=== PATIENT | female | born 1950 | race Caucasian/White ===

== ENCOUNTER 2016-07-16 16:55 | Outpatient (RCR) | payer MEDICARE, OTHER ==
--- NOTE | 2016-07-15 09:21 | Diagnostic Imaging Report ---
INDICATION: Nephrolithiasis. EXAMINATION: KUB at 11:07 AM. FINDINGS: The bowel gas pattern is normal. There is one small linear calcification projecting over the left kidney that could be a renal calculus versus fecal material in the colon. IMPRESSION: Small calcifications are seen in the left kidney that could be calculi versus fecal material. Dictated by: Dictated on workstation # [id number]
[~2016-07-16 16:55] MED LIST: ALPR0.2550 PO; AMLO10TA4 PO; AMLO5TAB2 PO; ASCO500C14 PO; ASP81TEC PO; ATR20T PO; BISO10TA8 PO; BISO1TAB PO; BISO1TAB39 PO; BISO1TAB4; CALC-758 PO; CALC-80 PO; CETI-9 PO; CHOL100011 PO; CHOL50003 PO; CPR500T PO; DOXY100C2; EST.625T; ESTROPIPATE; EZET1TAB43; FAMO20TA5; FEVERFEW PO; FLUO20CA42 PO; FLX20C; GABA-486 PO; GABA-488 PO; GLUC-113 PO; HCT25T PO; HYOS0.1217 PO; KCL10CCR PO; LEVO125T6 PO; LEVOTHYROXINE; MDR10T; MULT-608 PO; NAPR-689 PO; NAPR1TAB21 PO; NAPR250T34; NF-ESOM40C; NF-TRA/ACE PO; OMEG1CAP51 PO; ONDAN4ODT PO; PHEN200T27 PO; PNT40TEC PO; PROMETRIUM; PROP1TAB77; SENN-75 PO; SERT50TA PO; SMV20T; SUCR1TAB PO; TRAM-368 PO; TRIA1CAP4 PO; TRIAMTERENE; VITA1CAP21 PO; VITA1CAP59 PO; VITAMIN B 6 PO; VNL75T; VYTORIN
[2016-07-21 20:40] LABS: STONE RISK AMMONIUM 39 mEq/24hr (14-62); STONE RISK BRUSHITE 1.85 (< 2.00); STONE RISK CA OXALATE 1.52 (< 2.00); STONE RISK CALCIUM 231 mg/day (< 250); STONE RISK CITRATE 120 mg/day (> 320); STONE RISK CREATININE 1246 mg/day (600-1800); STONE RISK MAGNESIUM 79 mg/day (> 60); STONE RISK OXALATE 24 mg/day (< 45); STONE RISK PATIENT CONDITION Hypocitraturia; STONE RISK PH 6.2 (5.5-7.0); STONE RISK PHOSPHOROUS 740 mg/day (< 1100); STONE RISK POTASSIUM 39 mEq/24hr (19-135); STONE RISK SODIUM 119 mEq/24hr (< 200); STONE RISK SODIUM URATES 1.38 (< 2.00); STONE RISK STRUVITE 0.74 (< 75.00); STONE RISK SULFITE 9 mmol/day (< 30); STONE RISK TOTAL VOLUME 2.08 L/day (> 2.00); STONE RISK URIC ACID 630 mg/day (< 700); STONE RISK URIC ACID SAT 0.87 (< 2.00)
[2016-07-22 07:39] LABS: STONE RISK SUSPECTED PROBLEM SEE FOOTNOTE
== END 2016-10-13 | disposition home or self-care (01) ==
LOC: RAD 16:55
PROVIDERS: ATTEND Urology
DX: N20.0 Calculus of kidney (principal)
CPT/HCPCS: 36415; 74000; 82140; 82340; 82507; 82570; 83735; 83945; 83986; 84105; 84133; 84300; 84392; 84560

== ENCOUNTER → 2017-02-23 | Outpatient (CLI) | payer MEDICARE, OTHER ==
--- NOTE | 2017-02-23 20:29 | Diagnostic Imaging Report ---
INDICATION: Wrist pain post fall several days earlier. TECHNIQUE: Three views of the right wrist CORRELATION STUDY: None FINDINGS: Alignment appearing to be anatomic. No acute fracture. Multifocal degenerative changes are present with mild joint space narrowing and reactive sclerosis and osteophyte formation. It is most noticeable at the first carpal metacarpal articulation. Mild soft tissue swelling is suggested. IMPRESSION: 1. Negative for acute bony abnormality about the right wrist with multifocal degenerative changes present. Mild soft tissue edema. If symptoms persist, short-term followup CT imaging would be recommended. Dictated by: Dictated on workstation # [id number]
== END ==
LOC: RAD 11:34
PROVIDERS: ATTEND Nurse Practitioner Family
DX: M19.031 Primary osteoarthritis, right wrist (principal)
CPT/HCPCS: 73110

== ENCOUNTER → 2017-03-03 | Outpatient (CLI) | payer MEDICARE, OTHER ==
--- NOTE | 2017-03-03 11:13 | Diagnostic Imaging Report ---
INDICATION: Fall. Hip pain. COMPARISON: None. FINDINGS: Two radiographic views of the right hip were obtained. There is no radiographic evidence of acute fracture or dislocation. Femoral acetabular joint space appears intact. There are mild degenerative changes of the right hip. Note is also made of calcified arteriosclerosis. Metallic opacity is seen projecting over the sacrum and is of indeterminate etiology. Soft tissue structures are otherwise unremarkable. IMPRESSION: 1. No radiographic evidence of acute fracture or dislocation of the right hip. 2. Mild degenerative changes of the right hip. 3. Metallic opacity projecting over the sacrum. This could be something external to the patient, although enteric or colonic foreign body is not excluded. Dictated by: Dictated on workstation # [id number]
== END ==
LOC: RAD 10:50
PROVIDERS: ATTEND Nurse Practitioner Family
DX: M25.551 Pain in right hip (principal)
CPT/HCPCS: 73502

== ENCOUNTER → 2017-05-25 | Outpatient (CLI) | payer MEDICARE, OTHER ==
--- NOTE | 2017-05-27 09:51 | Diagnostic Imaging Report ---
EXAMINATION: Bilateral screening mammogram 2D views with tomosynthesis. The current study was also evaluated with a Computer Aided Detection (CAD) system. INDICATION: Screening. PERSONAL HISTORY: No current complaints stated on the questionnaire. COMPARISON: 04/09/2016. FINDINGS: The breasts are composed of heterogeneously dense parenchyma which may decrease mammographic sensitivity. Benign-appearing calcifications are seen. There is a biopsy clip in the upper outer aspect of the right breast. Allowing for technique and positional differences, no suspicious change is seen. IMPRESSION: No significant change. ACR BI-RADS Category 2: Benign findings. Result letter will be mailed to the patient. Note: At least 10% of breast cancer is not imaged by mammography. Dictated by: Dictated on workstation # [id number]
== END ==
LOC: RAD 15:05
PROVIDERS: ATTEND Family Medicine
DX: Z12.31 Encounter for screening mammogram for malignant neoplasm of breast (principal)

== ENCOUNTER 2017-06-14 11:31 | Inpatient (IN) | payer MEDICARE, OTHER ==
[~2017-06-14] VITALS: Ht 172.7 cm; Wt 87.5 kg
--- OUTSIDE RECORDS SUMMARY | 2017-06-14 14:09 | XMS REPORT | Continuity of Care Document ---
Author Author [facility] Organization [facility] Address Unknown Phone Unavailable Allergies Active Description Code Type Severity Reaction Onset Reported/Identified Relationship to Patient Clinical Status Yes Sulfa (Sulfonamide Antibiotics) [id number] Drug Allergy Unknown N/A 2006 Medications There is no data. Problems Date Dx Coded Attending Type Code Diagnosis Diagnosed By 10/26/2009 Ot 244.9 10/26/2009 Ot 300.00 10/26/2009 Ot 401.9 10/26/2009 Ot 780.4 10/26/2009 Ot 786.09 10/26/2009 Ot 786.50 10/26/2009 Ot 794.30 10/26/2009 Ot V07.4 10/26/2009 Ot V17.49 10/26/2009 Ot V45.77 10/26/2009 Ot V58.66 10/26/2009 Ot V58.69 11/18/2010 Ot 244.9 HYPOTHYROIDISM NOS 11/18/2010 Ot 300.4 DYSTHYMIC DISORDER 11/18/2010 Ot 401.9 HYPERTENSION NOS 11/18/2010 Ot 530.81 ESOPHAGEAL REFLUX 11/18/2010 Ot 592.1 CALCULUS OF URETER 11/18/2010 Ot V58.69 OTH MED,LT, CURRENT USE 02/23/2011 Ot 592.1 CALCULUS OF URETER 07/09/2011 Ot 327.23 OBSTRUCTIVE SLEEP APNEA (ADULT) (PEDIATR 07/15/2012 Ot 592.9 URINARY CALCULUS NOS 01/07/2013 MAXIMILIANO CASAS MD Ot 530.11 REFLUX ESOPHAGITIS 01/07/2013 MAXIMILIANO CASAS MD Ot 535.40 OTH SPECIFIED GASTRITIS,W/O MENTION OF H 01/07/2013 MAXIMILIANO CASAS MD Ot 553.3 DIAPHRAGMATIC HERNIA 07/28/2013 STEPHANIA DAIGLE, JANINE Nascimento Ot 592.9 URINARY CALCULUS NOS 10/07/2013 TAVARES SCOTT MD Ot 722.52 LUMB/LUMBOSAC DISC DEGEN 02/17/2014 TAVARES SCOTT MD Ot 721.3 LUMBOSACRAL SPONDYLOSIS 02/17/2014 TAVARES SCOTT MD Ot 722.52 LUMB/LUMBOSAC DISC DEGEN 02/17/2014 TAVARES SCOTT MD Ot V58.69 OTH MED,LT,CURRENT USE 03/24/2014 MAXIMILIANO CASAS MD Ot 455.0 INT HEMORRHOID W/O COMPL 03/24/2014 MAXIMILIANO CASAS MD Ot 455.3 EXT HEMORRHOID W/O COMPL 03/24/2014 MAXIMILIANO CASAS MD Ot V12.72 PERSONAL HISTORY OF COLONIC POLYPS 03/24/2014 MAXIMILIANO CASAS MD Ot V76.51 SCREEN MAL NEOP-COLON 07/07/2014 Ot 780.60 07/07/2014 Ot 787.02 07/07/2014 Ot 786.50 07/07/2014 Ot 397.0 07/07/2014 Ot 401.9 07/07/2014 Ot 424.0 07/07/2014 Ot 780.4 07/07/2014 Ot 786.05 07/07/2014 Ot 786.50 07/07/2014 Ot 794.30 07/07/2014 Ot 786.50 07/07/2014 Ot 786.50 07/07/2014 Ot 796.4 07/07/2014 Ot V81.5 07/07/2014 Ot 793.81 07/07/2014 Ot 244.9 07/07/2014 Ot 401.9 07/07/2014 Ot 610.0 07/07/2014 Ot 610.1 07/07/2014 Ot 610.4 07/07/2014 Ot 793.81 07/07/2014 Ot V58.69 07/07/2014 Ot 793.81 07/07/2014 Ot 592.1 07/07/2014 Ot 553.3 07/07/2014 Ot 571.8 07/07/2014 Ot 789.04 07/07/2014 Ot 473.9 07/07/2014 Ot 786.09 07/07/2014 Ot 786.50 07/07/2014 Ot 786.09 07/07/2014 Ot 786.50 07/07/2014 Ot V76.12 07/07/2014 Ot 592.9 07/07/2014 Ot 721.3 07/07/2014 Ot 782.0 07/07/2014 Ot 959.9 07/07/2014 Ot E000.8 07/07/2014 Ot E849.0 07/07/2014 Ot E888.9 07/07/2014 FLORIAN DAIGLE, HARPER Watson Ot 401.9 07/07/2014 FLORIAN DAIGLE, HARPER Watson Ot 786.09 07/07/2014 YESSENIA DAIGLE, MAXIMILIANO Ot V72.84 07/07/2014 Ot 592.9 07/07/2014 LESLIE DO, ROXANNE F Ot 719.46 07/07/2014 LESLIE DO, ROXANNE F Ot 721.90 07/07/2014 LESLIE DO, ROXANNE F Ot 722.10 07/07/2014 LESLIE DO, ROXANNE F Ot 724.8 07/07/2014 LELSIE DO, ROXANNE F Ot V15.88 07/07/2014 FLORIAN DAIGLE, HARPER Watson Ot 272.4 07/07/2014 FLORIAN DAIGLE, HARPER Watson Ot 300.00 07/07/2014 FLORIAN DAIGLE, HARPER Watson Ot 397.0 07/07/2014 FLORIAN DAIGLE, HARPER Watson Ot 401.9 07/07/2014 FLORIAN DAIGLE, HARPER Watson Ot 424.0 07/07/2014 FLORIAN DAIGLE, HARPER Watson Ot 786.50 07/07/2014 FLORIAN DAIGLE, HARPER Watson Ot 272.4 07/07/2014 FLORIAN DAIGLE, HARPER Watson Ot 401.9 07/07/2014 HARPER DU MD Ot 786.50 07/07/2014 YESSENIA DAIGLE, MAXIMILIANO Ot V72.84 07/07/2014 FEDERICO NAIR MD Ot V76.12 07/11/2014 JANINE CAT MD Ot 592.9 07/21/2014 JANINE CAT MD Ot 592.9 07/27/2014 Ot 780.60 07/27/2014 Ot 787.02 07/27/2014 Ot 786.50 07/27/2014 Ot 397.0 07/27/2014 Ot 401.9 07/27/2014 Ot 424.0 07/27/2014 Ot 780.4 07/27/2014 Ot 786.05 07/27/2014 Ot 786.50 07/27/2014 Ot 794.30 07/27/2014 Ot 786.50 07/27/2014 Ot 786.50 07/27/2014 Ot 796.4 07/27/2014 Ot V81.5 07/27/2014 Ot 793.81 07/27/2014 Ot 244.9 07/27/2014 Ot 401.9 07/27/2014 Ot 610.0 07/27/2014 Ot 610.1 07/27/2014 Ot 610.4 07/27/2014 Ot 793.81 07/27/2014 Ot V58.69 07/27/2014 Ot 793.81 07/27/2014 Ot 592.1 07/27/2014 Ot 553.3 07/27/2014 Ot 571.8 07/27/2014 Ot 789.04 07/27/2014 Ot 473.9 07/27/2014 Ot 786.09 07/27/2014 Ot 786.50 07/27/2014 Ot 786.09 07/27/2014 Ot 786.50 07/27/2014 Ot V76.12 07/27/2014 Ot 592.9 07/27/2014 Ot 721.3 07/27/2014 Ot 782.0 07/27/2014 Ot 959.9 07/27/2014 Ot E000.8 07/27/2014 Ot E849.0 07/27/2014 Ot E888.9 07/27/2014 HARPER DU MD Ot 401.9 07/27/2014 HARPER DU MD Ot 786.09 07/27/2014 MAXIMILIANO CASAS MD Ot V72.84 07/27/2014 Ot 592.9 07/27/2014 LESLIE DO, ROXANNE F Ot 719.46 07/27/2014 LESLIE DO, ROXANNE F Ot 721.90 07/27/2014 LESLIE DO, ROXANNE F Ot 722.10 07/27/2014 LESLIE DO, ROXANNE F Ot 724.8 07/27/2014 LESLIE DO, ROXANNE F Ot V15.88 07/27/2014 HARPER DU MD Ot 272.4 07/27/2014 HARPER DU MD Ot 300.00 07/27/2014 HARPER DU MD Ot 397.0 07/27/2014 HARPER DU MD Ot 401.9 07/27/2014 HARPER DU MD Ot 424.0 07/27/2014 HARPER DU MD Ot 786.50 07/27/2014 FLORIAN DAIGLE, HARPER Watson Ot 272.4 07/27/2014 HARPER DU MD Ot 401.9 07/27/2014 HARPER DU MD Ot 786.50 07/27/2014 YESSENIA DAIGLE, MAXIMILIANO Ot V72.84 07/27/2014 FEDERICO NAIR MD Ot V76.12 07/27/2014 STEPHANIA DAIGLE, JANINE Nascimento Ot 592.9 07/28/2014 FEDERICO NAIR MD Ot 244.9 HYPOTHYROIDISM NOS 07/28/2014 FEDERICO NAIR MD Ot 272.4 HYPERLIPIDEMIA NEC/NOS 07/28/2014 FEDERICO NAIR MD Ot 401.9 HYPERTENSION NOS 07/28/2014 FEDERICO NAIR MD Ot 433.10 CAROTID ARTERY OCCLUSION W O CEREBRAL IN 07/28/2014 FEDERICO NAIR MD Ot 780.4 DIZZINESS AND GIDDINESS 07/28/2014 FEDERICO NAIR MD Ot V03.82 PROPHYLACTIC VACC AGAINST STREPTOCOCCUS 07/28/2014 FEDERICO NAIR MD Ot 244.9 07/28/2014 FEDERICO NAIR MD Ot 272.4 07/28/2014 FEDERICO NAIR MD Ot 401.9 07/28/2014 FEDERICO NAIR MD Ot 433.10 07/28/2014 FEDERICO NAIR MD Ot 780.4 07/28/2014 FEDERICO NAIR MD Ot V03.82 10/05/2014 STEPHANIA DAIGLE, JANINE Nascimento Ot 592.9 URINARY CALCULUS NOS 03/02/2015 TAVARES SCOTT MD Ot 722.52 LUMB/LUMBOSAC DISC DEGEN 05/30/2015 ALEXA HARTLEY MD Ot R07.2 PRECORDIAL PAIN 05/30/2015 ALEXA HARTLEY MD Ot R91.8 OTHER NONSPECIFIC ABNORMAL FINDING OF KRISTI 11/13/2015 Ot 786.50 CHEST PAIN NOS 11/13/2015 Ot 786.50 CHEST PAIN NOS 11/13/2015 Ot 796.4 ABN CLINICAL FINDING NEC 11/13/2015 Ot V81.5 SCREEN FOR NEPHROPATHY 11/13/2015 Ot 793.81 MAMMOGRAPHIC MICROCLACIFICATION 11/13/2015 Ot 244.9 HYPOTHYROIDISM NOS 11/13/2015 Ot 401.9 HYPERTENSION NOS 11/13/2015 Ot 610.0 SOLITARY CYST OF BREAST 11/13/2015 Ot 610.1 DIFFUS CYSTIC MASTOPATHY 11/13/2015 Ot 610.4 MAMMARY DUCT ECTASIA 11/13/2015 Ot 793.81 MAMMOGRAPHIC MICROCLACIFICATION 11/13/2015 Ot V58.69 OTH MED,LT, CURRENT USE 11/13/2015 Ot 793.81 MAMMOGRAPHIC MICROCLACIFICATION 11/13/2015 Ot 592.1 CALCULUS OF URETER 11/13/2015 Ot 553.3 DIAPHRAGMATIC HERNIA 11/13/2015 Ot 571.8 CHRONIC LIVER DIS NEC 11/13/2015 Ot 789.04 ABDOMINAL PAIN, LEFT LOWER QUADRANT 11/13/2015 Ot 473.9 CHRONIC SINUSITIS NOS 11/13/2015 Ot 786.09 RESPIRATORY ABNORM NEC 11/13/2015 Ot 786.50 CHEST PAIN NOS 11/13/2015 Ot 786.09 RESPIRATORY ABNORM NEC 11/13/2015 Ot 786.50 CHEST PAIN NOS 11/13/2015 Ot V76.12 OTH SCREEN MAMMO-MALIGN NEOPLASM OF DIANNA 11/13/2015 Ot 592.9 URINARY CALCULUS NOS 11/13/2015 Ot 721.3 LUMBOSACRAL SPONDYLOSIS 11/13/2015 Ot 782.0 SKIN SENSATION DISTURB 11/13/2015 Ot 959.9 INJURY-SITE NOS 11/13/2015 Ot E000.8 OTHER EXTERNAL CAUSE STATUS 11/13/2015 Ot E849.0 ACCIDENT IN HOME 11/13/2015 Ot E888.9 FALL NOS 11/13/2015 HARPER DU MD Ot 401.9 HYPERTENSION NOS 11/13/2015 HARPER DU MD Ot 786.09 RESPIRATORY ABNORM NEC 11/13/2015 YESSENIA DAIGLE, MAXIMILIANO Ot V72.84 EXAM PRE-OPERATIVE NOS 11/13/2015 Ot 592.9 URINARY CALCULUS NOS 11/13/2015 ROXANNE NELSON DO Ot 719.46 JOINT PAIN-L/LEG 11/13/2015 ROXANNE NELSON DO Ot 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 11/13/2015 ROXANNE NELSON DO Ot 722.10 LUMBAR DISC DISPLACEMENT 11/13/2015 ROXANNE NELSON DO Ot 724.8 OTHER BACK SYMPTOMS 11/13/2015 ROXANNE NELSON DO Ot V15.88 HISTORY OF FALL 11/13/2015 HARPER DU MD Ot 272.4 HYPERLIPIDEMIA NEC/NOS 11/13/2015 HARPER DU MD Ot 300.00 ANXIETY STATE NOS 11/13/2015 HARPER DU MD Ot 397.0 TRICUSPID VALVE DISEASE 11/13/2015 HARPER DU MD Ot 401.9 HYPERTENSION NOS 11/13/2015 HARPER DU MD Ot 424.0 MITRAL VALVE DISORDER 11/13/2015 HARPER DU MD Ot 786.50 CHEST PAIN NOS 11/13/2015 HARPER DU MD Ot 272.4 HYPERLIPIDEMIA NEC/NOS 11/13/2015 HARPER DU MD Ot 401.9 HYPERTENSION NOS 11/13/2015 HARPER DU MD Ot 786.50 CHEST PAIN NOS 11/13/2015 YESSENIA DAIGLE, MAXIMILIANO Ot V72.84 EXAM PRE-OPERATIVE NOS 11/13/2015 KOREY DAIGLE, FEDERICO Sims Ot V76.12 OTH SCREEN MAMMO-MALIGN NEOPLASM OF DIANNA 11/13/2015 STEPHANIA DAIGLE, JANINE Nascimento Ot 592.9 URINARY CALCULUS NOS 11/13/2015 CONNIE CASAS, EDWIGE Mobley Ot 272.4 HYPERLIPIDEMIA NEC/NOS 11/29/2015 GUILLERMINA LONGO COAT OPERATOR Ot M25.561 PAIN IN RIGHT KNEE 11/29/2015 GUILLERMINA LONGO COAT OPERATOR Ot M25.561 PAIN IN RIGHT KNEE 12/24/2015 WAYNE DAIGLE, CHRISTINA Nascimento Ot M25.561 PAIN IN RIGHT KNEE 04/09/2016 Ot 592.9 URINARY CALCULUS NOS 04/09/2016 ROXANNE NELSON DO Ot 719.46 JOINT PAIN-L/LEG 04/09/2016 ROXANNE NELSON DO Ot 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 04/09/2016 ROXANNE NELSON DO Ot 722.10 LUMBAR DISC DISPLACEMENT 04/09/2016 ROXANNE NELSON DO Ot 724.8 OTHER BACK SYMPTOMS 04/09/2016 ROXANNE NELSON DO Ot V15.88 HISTORY OF FALL 04/09/2016 HARPER DU MD Ot 272.4 HYPERLIPIDEMIA NEC/NOS 04/09/2016 HARPER DU MD Ot 300.00 ANXIETY STATE NOS 04/09/2016 HARPER DU MD Ot 397.0 TRICUSPID VALVE DISEASE 04/09/2016 HARPER DU MD Ot 401.9 HYPERTENSION NOS 04/09/2016 HARPER DU MD Ot 424.0 MITRAL VALVE DISORDER 04/09/2016 HARPER DU MD Ot 786.50 CHEST PAIN NOS 04/09/2016 HARPER DU MD Ot 272.4 HYPERLIPIDEMIA NEC/NOS 04/09/2016 HARPER DU MD Ot 401.9 HYPERTENSION NOS 04/09/2016 HARPER DU MD Ot 786.50 CHEST PAIN NOS 04/09/2016 YESSENIA DAIGLE, MAXIMILIANO Ot V72.84 EXAM PRE-OPERATIVE NOS 04/09/2016 KOREY DAIGLE, FEDERICO Sims Ot V76.12 OTH SCREEN MAMMO-MALIGN NEOPLASM OF DIANNA 04/09/2016 STEPHANIA DAIGLE, JANINE Nascimento Ot 592.9 URINARY CALCULUS NOS 04/09/2016 CONNIE CASAS, EDWIGE Mobley Ot 272.4 HYPERLIPIDEMIA NEC/NOS 04/09/2016 WAYNE DAIGLE, CHRISTINA Nascimento Ot M25.561 PAIN IN RIGHT KNEE 04/09/2016 GUILLERMINA LONGO COAT OPERATOR Ot M25.561 PAIN IN RIGHT KNEE 04/10/2016 GUILLERMINA LONGO COAT OPERATOR Ot Z12.31 ENCNTR SCREEN MAMMOGRAM FOR MALIGNANT NE 04/22/2016 GUILLERMINA LONGO COAT OPERATOR Ot Z12.31 ENCNTR SCREEN MAMMOGRAM FOR MALIGNANT NE 07/15/2016 Ot 793.81 MAMMOGRAPHIC MICROCLACIFICATION 07/15/2016 Ot 592.1 CALCULUS OF URETER 07/15/2016 Ot 553.3 DIAPHRAGMATIC HERNIA 07/15/2016 Ot 571.8 CHRONIC LIVER DIS NEC 07/15/2016 Ot 789.04 ABDOMINAL PAIN, LEFT LOWER QUADRANT 07/15/2016 Ot 473.9 CHRONIC SINUSITIS NOS 07/15/2016 Ot 786.09 RESPIRATORY ABNORM NEC 07/15/2016 Ot 786.50 CHEST PAIN NOS 07/15/2016 Ot 786.09 RESPIRATORY ABNORM NEC 07/15/2016 Ot 786.50 CHEST PAIN NOS 07/15/2016 Ot V76.12 OTH SCREEN MAMMO-MALIGN NEOPLASM OF DIANNA 07/15/2016 Ot 592.9 URINARY CALCULUS NOS 07/15/2016 Ot 721.3 LUMBOSACRAL SPONDYLOSIS 07/15/2016 Ot 782.0 SKIN SENSATION DISTURB 07/15/2016 Ot 959.9 INJURY-SITE NOS 07/15/2016 Ot E000.8 OTHER EXTERNAL CAUSE STATUS 07/15/2016 Ot E849.0 ACCIDENT IN HOME 07/15/2016 Ot E888.9 FALL NOS 07/15/2016 HARPER DU MD Ot 401.9 HYPERTENSION NOS 07/15/2016 HARPER DU MD Ot 786.09 RESPIRATORY ABNORM NEC 07/15/2016 MAXIMILIANO CASAS MD Ot V72.84 EXAM PRE-OPERATIVE NOS 07/15/2016 Ot 592.9 URINARY CALCULUS NOS 07/15/2016 LESLIE , ROXANNE F Ot 719.46 JOINT PAIN-L/LEG 07/15/2016 LESLIE DO ROXANNE F Ot 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 07/15/2016 LESLIE DO ROXANNE F Ot 722.10 LUMBAR DISC DISPLACEMENT 07/15/2016 LESLIE DO, ROXANNE F Ot 724.8 OTHER BACK SYMPTOMS 07/15/2016 LESLIE DO ROXANNE F Ot V15.88 HISTORY OF FALL 07/15/2016 HARPER DU MD Ot 272.4 HYPERLIPIDEMIA NEC/NOS 07/15/2016 HARPER DU MD Ot 300.00 ANXIETY STATE NOS 07/15/2016 HARPER DU MD Ot 397.0 TRICUSPID VALVE DISEASE 07/15/2016 HARPER DU MD Ot 401.9 HYPERTENSION NOS 07/15/2016 HARPER DU MD Ot 424.0 MITRAL VALVE DISORDER 07/15/2016 HARPER DU MD Ot 786.50 CHEST PAIN NOS 07/15/2016 HARPER DU MD Ot 272.4 HYPERLIPIDEMIA NEC/NOS 07/15/2016 HARPER DU MD Ot 401.9 HYPERTENSION NOS 07/15/2016 HARPER DU MD Ot 786.50 CHEST PAIN NOS 07/15/2016 MAXIMILIANO CASAS MD Ot V72.84 EXAM PRE-OPERATIVE NOS 07/15/2016 KOREY DAIGLE, FEDERICO Sims Ot V76.12 OTH SCREEN MAMMO-MALIGN NEOPLASM OF DIANNA 07/15/2016 JANINE CAT MD Ot 592.9 URINARY CALCULUS NOS 07/15/2016 CONNIE CASAS, EDWIGE Mobley Ot 272.4 HYPERLIPIDEMIA NEC/NOS 07/15/2016 WAYNE DAIGLE, CHRISTINA Nascimento Ot M25.561 PAIN IN RIGHT KNEE 07/15/2016 GUILLERMINA LONGO COAT OPERATOR Ot M25.561 PAIN IN RIGHT KNEE 07/15/2016 GUILLERMINA LONGO COAT OPERATOR Ot Z12.31 ENCNTR SCREEN MAMMOGRAM FOR MALIGNANT NE 08/07/2016 STEPHANIA DAIGLE, JANINE Nascimento Ot N20.0 CALCULUS OF KIDNEY 10/13/2016 STEPHANIA DAIGLE, JANINE Nascimento Ot N20.0 CALCULUS OF KIDNEY 03/23/2017 GUILLERMINA LONGO COAT OPERATOR Ot M19.031 PRIMARY OSTEOARTHRITIS, RIGHT WRIST 03/26/2017 GUILLERMINA LONGO COAT OPERATOR Ot M25.551 PAIN IN RIGHT HIP 04/24/2017 GUILLERMINA LONGO APRN Ot Z12.31 ENCNTR SCREEN MAMMOGRAM FOR MALIGNANT NE 04/24/2017 GUILLERMINA LONGO APRN Ot M19.031 PRIMARY OSTEOARTHRITIS, RIGHT WRIST 04/24/2017 GUILLERMINA LONGO APRN Ot M25.551 PAIN IN RIGHT HIP 05/25/2017 Ot V76.12 OTH SCREEN MAMMO-MALIGN NEOPLASM OF DIANNA 05/25/2017 Ot 592.9 URINARY CALCULUS NOS 05/25/2017 Ot 721.3 LUMBOSACRAL SPONDYLOSIS 05/25/2017 Ot 782.0 SKIN SENSATION DISTURB 05/25/2017 Ot 959.9 INJURY-SITE NOS 05/25/2017 Ot E000.8 OTHER EXTERNAL CAUSE STATUS 05/25/2017 Ot E849.0 ACCIDENT IN HOME 05/25/2017 Ot E888.9 FALL NOS 05/25/2017 FLORIAN DAIGLE, HARPER Watson Ot 401.9 HYPERTENSION NOS 05/25/2017 HARPER DU MD Ot 786.09 RESPIRATORY ABNORM NEC 05/25/2017 YESSENIA DAIGLE, MAXIMILIANO Ot V72.84 EXAM PRE-OPERATIVE NOS 05/25/2017 Ot 592.9 URINARY CALCULUS NOS 05/25/2017 ROXANNE NELSON DO Ot 719.46 JOINT PAIN-L/LEG 05/25/2017 ROXANNE NELSON DO Ot 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 05/25/2017 ROXANNE NELSON DO Ot 722.10 LUMBAR DISC DISPLACEMENT 05/25/2017 ROXANNE NELSON DO Ot 724.8 OTHER BACK SYMPTOMS 05/25/2017 ROXANNE NELSON DO Ot V15.88 HISTORY OF FALL 05/25/2017 HARPER DU MD Ot 272.4 HYPERLIPIDEMIA NEC/NOS 05/25/2017 HARPER DU MD Ot 300.00 ANXIETY STATE NOS 05/25/2017 HARPER DU MD Ot 397.0 TRICUSPID VALVE DISEASE 05/25/2017 HARPER DU MD J Ot 401.9 HYPERTENSION NOS 05/25/2017 HARPER DU MD J Ot 424.0 MITRAL VALVE DISORDER 05/25/2017 HARPER DU MD Ot 786.50 CHEST PAIN NOS 05/25/2017 HARPER DU MD Ot 272.4 HYPERLIPIDEMIA NEC/NOS 05/25/2017 HARPER DU MD Ot 401.9 HYPERTENSION NOS 05/25/2017 HARPER DU MD Ot 786.50 CHEST PAIN NOS 05/25/2017 YESSENIA DAIGLE, MAXIMILIANO Ot V72.84 EXAM PRE-OPERATIVE NOS 05/25/2017 KOREY DAIGLE, FEDERICO Sims Ot V76.12 OTH SCREEN MAMMO-MALIGN NEOPLASM OF DIANNA 05/25/2017 STEPHANIA DAIGLE, JANINE Nascimento Ot 592.9 URINARY CALCULUS NOS 05/25/2017 CONNIE CASAS, EDWIGE Mobley Ot 272.4 HYPERLIPIDEMIA NEC/NOS 05/25/2017 WAYNE DAIGLE, CHRISTINA Nascimento Ot M25.561 PAIN IN RIGHT KNEE 05/25/2017 GUILLERMINA LONGO COAT OPERATOR Ot M25.561 PAIN IN RIGHT KNEE 05/25/2017 GUILLERMINA LONGO COAT OPERATOR Ot Z12.31 ENCNTR SCREEN MAMMOGRAM FOR MALIGNANT NE 05/25/2017 GUILLERMINA LONGO COAT OPERATOR Ot M19.031 PRIMARY OSTEOARTHRITIS, RIGHT WRIST 05/25/2017 GUILLERMINA LONGO COAT OPERATOR Ot M25.551 PAIN IN RIGHT HIP 05/25/2017 CHRISTINA BLACK MD Ot Z12.31 ENCNTR SCREEN MAMMOGRAM FOR MALIGNANT NE 05/25/2017 CHRISTINA BLACK MD Ot Z12.31 ENCNTR SCREEN MAMMOGRAM FOR MALIGNANT NE 05/26/2017 CHRISTINA BLACK MD Ot Z12.31 ENCNTR SCREEN MAMMOGRAM FOR MALIGNANT NE Procedures There is no data. Results Test Result Range CD3+CD4+ (T4 helper) cells/100 cells in blood - 07/16/16 14:00 Timed urine calcium measurement (mass/volume) 231 % < 250 Urine oxalate detection 24 < 45 Urine uric acid measurement (mass/volume) 630 % < 700 Urine citrate measurement (mass/volume) 120 % > 320 Urine pH measurement 6.2 5.5-7.0 24 hour urine specimen volume measurement 2.08 % > 2.00 Sodium urate/total calculus mass ratio by infrared spectroscopy 119 % < 200 Sulfites [presence] in urine by test strip 9 < 30 Urine phosphate measurement (mass/volume) 740 % < 1100 Urine magnesium measurement (mass/volume) 79 % > 60 Urine calcium oxalate measurement 1.52 < 2.00 Urine calcium phosphate crystals detection by computer assisted method 1.85 < 2.00 24 hour urine sodium urate (saturation fraction) 1.38 < 2.00 Triple phosphate crystals detection in urine sediment by light microscopy 0.74 < 75.00 24 hour urine uric acid (saturation fraction) 0.87 < 2.00 Urine ammonium measurement 39 % 14-62 Urine potassium measurement 39 % 19-135 24 hour urine creatinine measurement (mass/time) 1246 % 600-1800 Clinical siebel administrator review of results SEE FOOTNOTE NRG Encounters ACCT No. Visit Date/Time Discharge Status Pt. Type Provider Facility Loc./Unit Complaint [id number] 05/26/2017 14:40:00 05/26/2017 23:59:59 CLS Preadmit FLORIAN DAIGLE, HARPER Watson [facility] RAD R07.89 CHEST PAIN [id number] 05/25/2017 15:05:00 05/25/2017 23:59:59 CLS Outpatient CHRISTINA BLACK MD [facility] RAD SCREENING MAMMO [id number] 04/24/2017 07:30:00 04/24/2017 23:59:59 CLS Preadmit CARI MOE APRN [facility] RAD LUMBAR SPINAL STENOSIS [id number] 04/07/2017 14:30:00 04/07/2017 23:59:59 CLS Preadmit CHRISTINA BLACK MD [facility] RAD SCREENING [id number] 03/03/2017 10:50:00 03/03/2017 23:59:59 CLS Outpatient GUILLERMINA LONGO COAT OPERATOR [facility] RAD RIGHT HIP PAIN [id number] 02/23/2017 11:34:00 02/23/2017 23:59:59 CLS Outpatient GUILLERMINA LONGO Levi COAT OPERATOR [facility] RAD R WRIST PAIN [id number] 10/14/2016 00:11:00 10/14/2016 23:59:59 CLS Preadmit JANINE CAT MD [facility] RAD STONES [id number] 07/16/2016 16:55:00 10/13/2016 00:01:00 DIS Outpatient JANINE CAT MD [facility] RAD STONES [id number] 04/09/2016 09:48:00 04/09/2016 23:59:59 CLS Outpatient GUILLERMINA LONGO Levi COAT OPERATOR [facility] RAD SCREENING [id number] 11/26/2015 10:31:00 11/26/2015 23:59:59 CLS Outpatient GUILLERMINA LONGO Levi COAT OPERATOR [facility] RAD RT KNEE PAIN [id number] 11/13/2015 13:40:00 11/13/2015 23:59:59 CLS Outpatient CHRISTINA BLACK MD [facility] RAD R KNEE PAIN [id number] 05/30/2015 14:59:00 05/30/2015 18:10:00 DIS Emergency ALEXA HARTLEY MD [facility] ER CHEST PAIN [id number] 03/02/2015 08:07:00 03/02/2015 23:59:59 CLS Outpatient EDWIGE MUELLER [facility] LAB HYPERLIPIDEMIA [id number] 03/02/2015 08:01:00 03/02/2015 09:00:00 DIS Outpatient TAVARES SCOTT MD [facility] CARD DDD [id number] 10/06/2014 00:10:00 10/06/2014 23:59:59 CLS Preadmit JANINE CAT MD [facility] RAD STONES [id number] 07/10/2014 06:41:00 10/05/2014 00:01:00 DIS Outpatient JANINE CAT MD [facility] RAD STONES [id number] 07/27/2014 15:40:00 07/28/2014 19:40:00 DIS Inpatient FEDERICO NAIR MD [facility] CSD VERTIGO,L CAROTID BRUIT,ELEVATED CK [id number] 06/21/2014 15:04:00 06/21/2014 23:59:59 CLS Outpatient FEDERICO NAIR MD [facility] RAD SCREENING [id number] 03/24/2014 09:02:00 03/24/2014 12:20:00 DIS Outpatient MAXIMILIANO CASAS MD [facility] SDC HISTORY POLYPS [id number] 03/22/2014 07:20:00 03/22/2014 23:59:59 CLS Outpatient MAXIMILIANO CASAS MD [facility] PREOP HISTORY POLYPS [id number] 02/17/2014 06:59:00 02/17/2014 07:49:00 DIS Outpatient TAVARES SCOTT MD [facility] CARD DEGENERATIVE DISC DISEASE LUMBAR [id number] 02/06/2014 07:30:00 02/06/2014 23:59:59 CLS Outpatient HARPER DU MD [facility] CARD CP,HTN,HLP,ANXIETY [id number] 02/02/2014 09:46:00 02/02/2014 23:59:59 CLS Outpatient HARPER DU MD [facility] CARD CP,HTN,HLP,ANXIETY [id number] 10/07/2013 07:57:00 10/07/2013 09:05:00 DIS Outpatient TAVARES SCOTT MD [facility] CARD DDD [id number] 08/16/2013 09:48:00 08/16/2013 23:59:59 CLS Outpatient ROXANNE NELSON DO [facility] RAD LT KNEE PAIN,LOW BACK PAIN, RADICULOPATHY [id number] 04/30/2013 13:00:00 07/28/2013 00:01:00 DIS Outpatient JANINE CAT MD [facility] RAD STONES [id number] 01/07/2013 08:50:00 01/07/2013 13:05:00 DIS Outpatient MAXIMILIANO CASAS MD [facility] SDC CHEST PAINS [id number] 01/06/2013 11:03:00 01/06/2013 23:59:59 CLS Outpatient MAXIMILIANO CASAS MD [facility] PREOP CHEST PAINS [id number] 11/11/2012 10:58:00 11/11/2012 23:59:59 CLS Outpatient HARPER DU MD [facility] CARD DYSPNEA,HTN [id number] 07/07/2014 15:37:00 Document Registration [id number] 07/07/2014 15:37:00 Document Registration [id number] 07/07/2014 15:37:00 Document Registration [id number] 07/07/2014 15:37:00 Document Registration [id number] 07/07/2014 15:37:00 Document Registration [id number] 07/29/2013 00:00:00 Document Registration [id number] 08/23/2012 08:32:00 Document Registration [id number] 07/19/2012 11:21:00 Document Registration [id number] 07/16/2012 00:00:00 Document Registration [id number] 04/18/2012 08:30:00 Document Registration [id number] 10/13/2011 08:03:00 Document Registration [id number] 10/06/2011 07:35:00 Document Registration [id number] 07/30/2011 15:34:00 Document Registration [id number] 07/10/2011 08:28:00 Document Registration [id number] 07/08/2011 21:18:00 Document Registration [id number] 04/21/2011 13:29:00 Document Registration [id number] 02/24/2011 00:00:00 Document Registration [id number] 11/25/2010 15:52:00 Document Registration [id number] 11/18/2010 07:20:00 Document Registration [id number] 11/12/2010 11:09:00 Document Registration [id number] 10/14/2010 13:06:00 Document Registration [id number] 07/26/2010 12:01:00 Document Registration [id number] 07/26/2010 10:03:00 Document Registration [id number] 10/25/2009 12:51:00 Document Registration [id number] 10/22/2009 10:25:00 Document Registration [id number] 10/17/2009 07:16:00 Document Registration [id number] 07/04/2009 13:44:00 Document Registration [id number] 05/15/2009 11:24:00 Document Registration
[2017-06-14 14:22] VITALS: BP 127/61
--- NOTE | 2017-06-14 14:40 | Consultation-Hospitalist ---
HPI History of Present Illness: HPI/Chief Complaint CC: Medical management following debility from uncomplicated lumbar spine surgery at [facility] by Dr Clements POD # 3 HPI: This is a 67-year-old white female clinic patient of Dr. Hardy who underwent an uncomplicated lumbar spine surgery by Dr. Clements on at [facility] and [place]. She did have slight hypotension with dizziness postoperatively after an 800 mL estimated blood loss since she was given 2 units of blood on Thursday and resulted hemoglobin was 9.9 and overall doing extremely well. She did have a bowel movement today and she is eating and drinking well. We have reviewed and continue all of her home medication and I for see a short hospital course in the rehabilitation unit just to increase her confidence because she lives at home alone. Source: patient Exam Limitations: no limitations Date Seen 06/14/17 Attending Physician Ryan Underwood MD PCP uSbha Hardy MD Referring Physician Date of Admission Jun 14, 2017 at 14:04 Home Medications & Allergies Home Medications Reviewed patient Home Medication Reconciliation Form Allergies Allergies Coded Allergies Sulfa (Sulfonamide Antibiotics) (Verified Allergy, Unknown, 12/21/06) Past Bvcqyso-Ypgouo-Uhwesu Hx Patient Social History Marrital Status: single Employed/Student: retired Smoking Status: Never a Smoker Recent Foreign Travel: No Contact w/other who traveled: No Recent Infectious Disease Expo: No Immunizations Up To Date Date of Influenza Vaccine: Apr 14, 2017 Surgeries Abdominal, Adenoidectomy, Hysterectomy, Orthopedic, Tonsillectomy Respiratory Yes Sleep Apnea Cardiovascular Yes 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, Hypertension Neurological No Reproductive System Hx Reproductive Disorders: Yes ("I WAS INFERTILE.") Sexually 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 Genitourinary Yes Kidney Stones Gastrointestinal Yes Abdominal Hernia, Gastroesophageal Reflux, Chronic Constipation Musculoskeletal Yes Degenerate Disk Disease, Arthritis Endocrine History of Endocrine Disorders: Yes Endocrine Disorders: Hypothyroidsim HEENT History of HEENT Disorders: Yes HEENT Disorders: Cataract Loss of Vision: Denies Hearing Impairment: Denies Cancer No Psychosocial History of Psychiatric Problem: No Behavioral Health Disorders: Anxiety Blood Transfusions History of Blood Disorders: Yes (2 units 06/12/17 at [facility]) Reviewed Nursing Assessment Reviewed/Agree w Nursing PMH: Yes Family Medical History Significant Family History: No Pertinent Family Hx Family Hx: Arthritis 19 MOTHER G8 SISTER Cardiovascular disease 19 MOTHER Deafness or hearing loss 19 FATHER Diabetes mellitus 19 MOTHER G8 SISTER FH: lupus 19 FATHER FH: skin cancer 19 MOTHER Hypercholesterolemia 19 MOTHER Hypertension 19 MOTHER Myocardial infarction 19 MOTHER Osteoporosis 19 MOTHER Prostate cancer G8 BROTHER G8 BROTHER Respiratory disorder 19 FATHER 19 MOTHER No Family History of: Drug abuse Review of Systems Constitutional: see HPI, weakness EENTM: no symptoms reported Respiratory: no symptoms reported Cardiovascular: no symptoms reported Gastrointestinal: no symptoms reported Genitourinary: no symptoms reported Musculoskeletal: back pain Skin: no symptoms reported Psychiatric/Neurological: No Symptoms Reported All Other Systems Reviewed Negative Unless Noted: Yes Physical Exam Physical Exam Vital Signs Vital Sign - Last 12Hours 06/14/17 14:22 Temp 99.3 Pulse 104 Resp 18 B/P (MAP) 127/61 (83) Pulse Ox 98 O2 Delivery Room Air Capillary Refill : General Appearance: No Apparent Distress, WD/WN Eyes: Bilateral Eye Normal Inspection, Bilateral Eye PERRL HEENT: PERRL/EOMI, Normal ENT Inspection, Pharynx Normal Neck: Full Range of Motion, Normal Inspection, Non Tender, Supple, Carotid Bruit Respiratory: Chest Non Tender, Lungs Clear, Normal Breath Sounds, No Accessory Muscle Use, No Respiratory Distress Cardiovascular: Regular Rate, Rhythm, No Edema, No Gallop, No JVD, No Murmur, Normal Peripheral Pulses Gastrointestinal: Normal Bowel Sounds, No Organomegaly, No Pulsatile Mass, Non Tender, Soft Back: Normal Inspection, Decreased Range of Motion Extremity: Normal Capillary Refill, Normal Inspection, Normal Range of Motion, Non Tender, No Calf Tenderness, No Pedal Edema Neurologic/Psychiatric: Alert, Oriented x3, No Motor/Sensory Deficits, Normal Mood/Affect Skin: Normal Color, Warm/Dry Lymphatic: No Adenopathy Assessment/Plan Admission Diagnosis Assessment: Status post uncomplicated lumbar spine surgery by Dr. Clements at [facility] in [place] POD # 3 now having debility and lives alone so needs in inpatient rehabilitation management Postoperative anemia due to acute blood loss status post 2 units of red blood cell transfusion uncomplicated Hypertension Hyperlipidemia GERD Hypothyroidism Osteoarthritis Renal calculus history Assessment and Plan Plan: Maintain home meds Monitor blood pressure Maintain bowel regimen Pain control PT/OT Clinical Quality Measures DVT/VTE Risk/Contraindication: Risk Factor Score Per Nursin RFS Level Per Nursing on Admit: 4+=Very High DANIELA BHARDWAJ DO Jun 14, 2017 14:40
[2017-06-14] MEDS ORDERED: LEVO125T6 PO (18:32)
[2017-06-14] MEDS ORDERED: FLUT16SP22 NSEACH (18:32)
[2017-06-14] MEDS ORDERED: CALC500T3 PO (18:32)
[2017-06-14] MEDS ORDERED: CARV6.252 PO (18:32)
[2017-06-14] MEDS ORDERED: POLY17PO6 PO (18:32)
[2017-06-14] MEDS ORDERED: BENZ1LOZ42 MM (18:32)
[2017-06-14] MEDS ORDERED: ACET325T49 PO (18:32)
[2017-06-14] MEDS ORDERED: BISA10SU6 RC (18:32)
[2017-06-14] MEDS ORDERED: DOCU100C37 PO (18:32)
[2017-06-14] MEDS ORDERED: ATOR20TA66 PO (18:32)
[2017-06-14] MEDS ORDERED: SENN-140 PO (18:32)
[2017-06-14] MEDS ORDERED: MAGN400O7 PO (18:32)
[2017-06-14] MEDS ORDERED: PANT40TA3 PO (18:32)
[2017-06-14] MEDS ORDERED: BACL10TA PO (18:32)
[2017-06-14] MEDS ORDERED: AMLO10TA2 PO (18:32)
[2017-06-14] MEDS ORDERED: TRAZ-28 PO (18:32)
[2017-06-14] MEDS ORDERED: LISI10TA2 PO (18:32)
[2017-06-14] MEDS ORDERED: NAPR500T4 PO (18:32)
[2017-06-14] MEDS ORDERED: BISA5TAB8 PO (18:32)
[2017-06-14] MEDS ORDERED: GABA-488 PO (18:32)
[2017-06-14] MEDS ORDERED: LOSA50TA36 PO (18:32)
[2017-06-14] MEDS ORDERED: HYDR25TA4 PO (18:32)
[2017-06-14 18:41] VITALS: BP 120/73
[2017-06-14] MEDS ORDERED: ONDANSETRON 4 MG (ZOFRAN) ORAL DISSOLVE TAB PO PRN (20:30)
[2017-06-14] MEDS ORDERED: ACETAMINOPHEN 325 MG TABLET/CAPLET (TYLENOL) PO PRN (20:30)
[2017-06-14] MEDS ORDERED: HYDROcodone/APAP 5 MG/325 MG (LORTAB) TAB PO PRN (20:30)
[2017-06-14] MEDS ORDERED: ACETAMINOPHEN 500 MG TAB (TYLENOL) PO PRN (20:30)
[2017-06-14] MEDS ORDERED: NON-FORMULARY MEDICATION 1 EA EA (Calcium Carbonate 500 MG) PO PRN (20:30)
[2017-06-14] MEDS ORDERED: MILK OF MAGNESIA 400 MG/5 ML 30 ML UDC PO PRN (20:30)
[2017-06-14] MEDS ORDERED: BISACODYL 5 MG (DULCOLAX) TABLET PO PRN (20:30)
[2017-06-14] MEDS ORDERED: NON-FORMULARY MEDICATION 1 EA EA (Naproxen 500 MG) PO PRN (20:30)
[2017-06-14] MEDS ORDERED: BISACODYL 10 MG SUPP (DULCOLAX) RC PRN (20:30)
[2017-06-14] MEDS ORDERED: ALPRAZolam 0.25 MG (XANAX) TAB PO PRN (20:30)
[2017-06-14] MEDS: DOCUSATE SODIUM 100 MG (COLACE) CAP PO SCH (20:45)
[2017-06-14] MEDS: FLUTICASONE NASAL SPRAY (FLONASE) 16 GM BTL NS SCH (20:45)
[2017-06-14] MEDS: POLYETHYLENE GLYCOL 17 GM (MIRALAX) PACK PO SCH (20:46)
[2017-06-14] MEDS: SENNOSIDES 8.6 MG (SENOKOT) TAB PO SCH (20:47)
[2017-06-14] MEDS: ATORVASTATIN 20 MG (LIPITOR) TABLET PO SCH (20:53)
[2017-06-14] MEDS: GABAPENTIN 300 MG (NEURONTIN) CAP PO SCH (20:53)
[2017-06-14] MEDS: CARVEDILOL 6.25 MG (COREG) TAB PO SCH (20:53)
[2017-06-14] MEDS: HYDROcodone/APAP 10 MG/325 MG (LORTAB) TAB PO PRN (20:53)
[2017-06-14] MEDS: traZODone 50 MG (DESYREL) TAB PO SCH (20:53)
[2017-06-14] MEDS ORDERED: CALCIUM CARBONATE 500 MG (TUMS) TAB.CHEW PO PRN ×2 (21:15)
[2017-06-14] MEDS ORDERED: NAPROXEN 250 MG (NAPROSYN) TABLET PO PRN (21:15)
[2017-06-15] MEDS: HYDROcodone/APAP 10 MG/325 MG (LORTAB) TAB PO PRN ×3 (06:05→13:44)
[2017-06-15 06:09] VITALS: BP 117/71
[2017-06-15] MEDS ORDERED: CHLORASEPTIC LOZENGE MM PRN (08:00)
[2017-06-15] MEDS: DOCUSATE SODIUM 100 MG (COLACE) CAP PO SCH ×2 (08:32→20:07)
[2017-06-15] MEDS: HYDROCHLOROTHIAZIDE 25 MG (HCTZ) TAB PO SCH (08:32)
[2017-06-15] MEDS: PANTOPRAZOLE 40 MG (PROTONIX) TAB PO SCH (08:32)
[2017-06-15] MEDS: LEVOTHYROXINE 125 MCG (LEVOTHROID) TABLET PO SCH (08:32)
[2017-06-15] MEDS: GABAPENTIN 300 MG (NEURONTIN) CAP PO SCH ×3 (08:32→20:07)
[2017-06-15] MEDS: POLYETHYLENE GLYCOL 17 GM (MIRALAX) PACK PO SCH ×2 (08:35→20:08)
[2017-06-15] MEDS: FLUTICASONE NASAL SPRAY (FLONASE) 16 GM BTL NS SCH ×2 (08:38→21:28)
[2017-06-15] MEDS: SENNOSIDES 8.6 MG (SENOKOT) TAB PO SCH ×2 (08:38→20:07)
[2017-06-15 09:32] VITALS: BP 110/67
[2017-06-15] MEDS: amLODIPine 10 MG (NORVASC) TAB PO SCH (09:33)
[2017-06-15] MEDS: CARVEDILOL 6.25 MG (COREG) TAB PO SCH ×2 (09:33→20:07)
[2017-06-15] MEDS: lisINopril 10 MG (PRINIVIL) TAB PO SCH (09:33)
[2017-06-15] MEDS: LOSARTAN 50 MG (COZAAR) TAB PO SCH (09:33)
--- NOTE | 2017-06-15 11:51 | Physical Therapy Evaluation ---
PT Evaluation-General Medical Diagnosis Admission Date Jun 14, 2017 at 14:04 Medical Diagnosis: L3-4 laminectomy and TLIF, PSIF Onset Date: Jun 11, 2017 Therapy Diagnosis Therapy Diagnosis: impaired mobility, strength, endurance Height/Weight Height (Feet): 5 Height (Inches): 8.00 Weight (Pounds): 0 Weight (Ounces): 0.0 Precautions Precautions/Isolations: Fall Prevention, Standard Precautions Referral Physician: Kj Reason for Referral: Evaluation/Treatment Medical History Pertinent Medical History: Arthritis, GERD, HTN, Hypothroidism Additional Medical History sleep apnea, high cholesterol, kidney stones, hernia, chronic constipation, DDD , cataracts, anxiety, surg (abdominal, adenoidectomy, hysterectomy, othropedic, tonsillectomy) Reviewed History: Yes Social History Home: Single Level Current Living Status: Alone Entry Into Home: Ramp Patient states she lives alone with a couple of small dogs and her family member had a ramp put in Prior/Core FIM Prior Level of Function Functional [place] Measure 0=Not Assessed/NA 4=Minimal Assistance 1=Total Assistance 5=Supervision or Setup 2=Maximal Assistance 6=Modified [place] 3=Moderate Assistance 7=Complete [place] Bed Mobility: 7 Transfers (B,C,W/C) (FIM): 7 Gait: 7 PT Evaluation-Current Subjective Patient in recliner pre tx, agrees to PT, has pain of 5/10 Pt/Family Goals "to get stronger and go home and be able to take care of herself" Objective Patient Orientation: Normal For Age LSO ROM/Strength ROM Lower Extremities WNL Strenght Lower Extremities 4/5 gross bilateral lower extremities Integumentary/Posture Bowel Incontinence: Yes Sensory Vision: Wears Glasses Hearing: Functional Sensation Right Lower Extremit: Intact Sensation Left Lower Extremity: Intact Sensation Lower Extremities no complaints of numbness or tingling in lower extremities Transfers Functional [place] Measure 0=Not Assessed/NA 4=Minimal Assistance 1=Total Assistance 5=Supervision or Setup 2=Maximal Assistance 6=Modified [place] 3=Moderate Assistance 7=Complete IndependenceIRFPAI Quality Coding Scale 6 Independent with activity with or without an assistive device 5 Patient requires set up or clean up by helper. Patient completes activity by themselves 4 Supervision or touching assist (CGA). [place] provide cues , steadying assist 3 The helper provides less than half the effort to complete the activity 2 The helper provides more than half the effort to complete the activity 1 Dependent. The helper does all the effort to complete an activity 7 Patient refused to complete or attempt activity 9 The patient did not perform the activity before the current illness or injury 88 Not attempted due to Medical conditions or safety concerns Transfers (B, C, W/C) (FIM): 4 Scootin Rollin Roll Left to Right (QC): 4 Supine to/from Sit: 5 Sit to/from Stand: 4 Sit to Lying (QC): 4 Lying to Sitting/Side of Bed(Q: 4 Sit to Stand (QC): 4 Chair/Wsn-xt-Hjons Xfer(QC): 4 Car Transfer (QC): 4 Patient performs bed mobility with SBA, sit to stand and stand pivot transfers CGA, car transfer CGA. Gait Does the Patient Walk?: Yes Mode of Locomotion: Walk Anticipated Mode of Locomotion: Walk Gait (FIM): 4 Walk 10 feet (QC): 4 Walk 50 ft with 2 Turns(QC): 4 Walk 150 ft (QC): 4 Walking 10ft/uneven surface-QC: 4 Distance: 150'x2 Gait Level of Assist: 4 Gait Persons Needed: 1 Gait Assistive Device: FWW Comments/Gait Description Patient can ambulate 150' with a rolling walker with CGA, including 50' with at least 2 turns of 90 degrees and 10' over an uneven surface. Wheelchair Training Does the Pt Use a Wheelchair?: No Stairs Stairs (FIM): 1 #of Steps: 1 Level of Assist: 4 1 Step (curb) (QC): 4 4 Steps (QC): 88 Assistive Device: Walker 12 Steps (QC): 88 Patient can go up and down 1 steps using a rolling walker with CGA. Balance Sitting Static: Normal Sitting Dynamic: Normal Standing Static: Good Standing Dynamic: Good Picking up an Object (QC): 88 Treatment LAQ alternating for 5 min, mini-squats x10, heel raises x15 Assessment/Needs Patient has impaired mobility, strength, endurance post back surgery. Rehab Potential: Good PT Short Term Goals Short Term Goals Time Frame: Jun 22, 2017 Transfers (B,C,W/C) (FIM): 5 Gait (FIM): 5 Gait Distance Comment: 200' Gait Level of Assist: 5 Gait Assistive Device: FWW PT Contract Administration Specialist Goals Skilled Nursing Goals PT Contract Administration Specialist Goals Time Frame: Jul 06, 2017 Transfers (B,C,W/C) (FIM): 6 Sit to Lying (QC): 6 Lying-Sitting on Side/Bed(QC): 6 Sit to Stand (QC): 6 Rollin Roll Left to Right (QC): 6 Chair/Boq-ta-Pszta Xfer(QC): 6 Car Transfer (QC): 6 Gait (FIM): 6 Distance: 300' Walk 10 feet (QC): 6 Walk 10ft-Uneven Surface(QC): 6 Walk 50ft with 2 Turns (QC): 6 Walk 150 ft (QC): 6 Gait Assistive Device: FWW Stairs (FIM): 5 # of Steps: 12 1 Step (curb) (QC): 4 4 Steps (QC): 4 12 Steps (QC): 4 Stairs Level Of Assist: 5 PT Plan Problem List Problem List: Activity Tolerance, Functional Strength, Safety, Balance, Gait, Transfer, Bed Mobility, ROM Treatment/Plan Treatment Plan: Continue Plan of Care Treatment Plan: Bed Mobility, Education, Functional Activity Sri, Functional Strength, Group Therapy, Gait, Safety, Therapeutic Exercise, Transfers Treatment Duration: Jul 06, 2017 Frequency: At least 5 of 7 days/Wk (IRF) Estimated Hrs Per Day: 1.5 hours per day Patient and/or Family Agrees t: Yes Safety Risks/Education Patient Education: Gait Training, Transfer Techniques, Steps, Reviewed Precautions, Correct Positioning, Reviewed Don/Doff Brace, Safety Issues Teaching Recipient: Patient Teaching Methods: Demonstration, Discussion Response to Teaching: Reinforcement Needed Discharge Recommendations Plan Patient will perform bed mobility and transfer training, balance and endurance training, functional strengthening, stair training, gait training, and education , to improve functional mobility and independence at home. Therapy D/C Recommendations: Home w/ Family Support Time/GCodes Time In: 1000 Time Out: 1100 Total Billed Treatment Time: 60 Total Billed Treatment 1 visit EVM 30' GT 15' EX 15' JIMMIE SOUZA PT Jun 15, 2017 11:51
--- NOTE | 2017-06-15 12:10 | PM&R Post Admission Assessment ---
Post Admission Physician Asses The preadmission screen agrees with the post admission assessment that the patient is a good candidate for inpatient rehabilitation. The patient will have a comprehensive program of inpatient rehabilitation with a goal of maximizing level of functional independence prior to discharge home with family and HHC. The familypatient will have PT/OT ninety minutes per day , each discipline, five days a week for gait, strengthening, conditioning, balance, ADLs, any patient/family/caregiver training as necessary. Speech therapy to do cognitive assessment and treat as indicated. Rehabilitation nursing to assist with bowel, bladder, skin, wound care, medication administration, pain management. Systems Engineer to assist with discharge planning, community reentry. SCD's for DVT prophylaxis. She appears to be well motivated to participate in three hours of therapy a day. She should be able to tolerate three hours of therapy a day from a medical and surgical standpoint. She should benefit from the three hours of therapy a day. She has a reasonable discharge plan, reasonable discharge rehabilitation goals and a supportive family. She has various comorbidities that need to be closely monitored with medications and treatments adjusted on a daily basis as needed. These include:Postop anemia HTN KORTNEY Chronic constipation HLP Hypothyroidism Barriers to discharge for this patient who had been independent prior to this are for her to be modified independent to supervision for ADLs and mobility skills prior to discharge home with [family], so as to lessen the burden of the caregivers. Risks for this patient include: 1. Fall 2. Fracture 3. DVT 4. Pulmonary embolism 5. Wound infection 6. Skin breakdown 7. Contractures 8. Poorly controlled pain 9. Urinary retention 10. UTI 11. Respiratory infection 12. Aspiration 13.Poorly controlled HTN 14. Worsening postop anemia Estimated Length of Stay: 14days Prognosis: Rehab prognosis appears good for goal of discharge home [facility] and [facility] modified independent to supervision for ADLs and mobility skills. SEEMA REA MD Jun 15, 2017 12:10
--- NOTE | 2017-06-15 14:13 | Therapy Group Daily Note ---
Therapy Daily Group Note Patient Education Topic Home Safety, Fall Prevention Exercises LE Seated Exercise, UE Exercise Other/Notes Pt was an active participant in OT/PT group. During introductions, she shared information on a New Year's resolution that she will work on. She contributed to discussion/education on fall prevention and home safety and identified areas in her environment that may contribute to falls. She also did seated UE and LE exercises , including ones that will help with fall prevention. She walked back to her room with CGA, FWW and was left up in recliner, all needs met. Start Time: 12:30 Stop Time: 13:40 Total Billed Treatment Time: 70 Total Billed Treatment visit, 70 minutes group SOCRATES FRAZIER OT Jun 15, 2017 14:13
--- NOTE | 2017-06-15 14:47 | HISTORY AND PHYSICAL ---
DATE OF SERVICE: CHIEF COMPLAINT: Difficulty walking. HISTORY OF PRESENT ILLNESS: The patient is a 67-year-old female who lives alone in [facility] and had been modified independent prior to this who was admitted to [facility] in [place], [place] for lumbar spinal stenosis. On 06/11/2017, she had slight hypotension associated with dizziness postoperatively and she was given 2 units of packed red blood cells for postop anemia with a hemoglobin improved to 9.9 post-transfusion. She was referred to inpatient rehabilitation unit for ongoing care and therapies. Dr. Mcneil has been following her in lieu of Dr. Hardy. Currently, she is a min assist for transfers and ambulation with a walker. Modified independent for eating, set up for grooming, min assist for upper body dressing, mod assist for lower body dressing and toileting. She is utilizing Lortab for pain control. PAST MEDICAL HISTORY: Sleep apnea, hypercholesterolemia, hypertension, renolithiasis, GERD, chronic constipation, degenerative disk disease, arthritis, hypothyroidism on replacement, cataract extraction, anxiety. PAST SURGICAL HISTORY: Hysterectomy as per above, tonsillectomy, adenoidectomy. ALLERGIES: SULFA. FAMILY HISTORY: Cardiac disease, diabetes mellitus, lupus, skin cancer, hypercholesterolemia, hypertension, osteoporosis, prostate cancer. SOCIAL HISTORY: She is single and lives in [place], [place]. She has pets. She has supportive family nearby. She is retired. Never a smoker.She has a Niece in [facility] and a brother in [facility] REVIEW OF SYSTEMS: Ten point review of systems significant for back pain, difficulty with walking, chronic constipation. MEDICATIONS: Amlodipine 10 mg p.o. daily, hydrochlorothiazide 25 mg p.o. daily, levothyroxine 125 mcg p.o. daily, lisinopril 10 mg p.o. every day, Cozaar 50 mg p.o. daily, Protonix 40 mg p.o. daily, Lipitor 20 mg p.o. at bedtime. Coreg 6.25 mg p.o. b.i.d., Colace 100 mg p.o. b.i.d., Flonase 1 spray b.i.d., gabapentin 300 mg p.o. t.i.d., MiraLax 17 grams p.o. b.i.d., Senokot two tablets p.o. b.i.d., trazodone 50 mg p.o. at bedtime, baclofen 10 mg p.o. q.8 hours p.r.n. muscle spasm, Xanax 0.25 mg p.o. q.8h. p.r.n. anxiety, Lortab 5 one tablet p.o. q.4 hours p.r.n. moderate pain. PHYSICAL EXAMINATION: GENERAL: Significant for a female appearing her stated age. Alert and oriented, no acute distress. VITAL SIGNS: Blood pressure 110/67, O2 sat 96% on room air, pulse is 79, temperature is 99.8 on 06/15/2017. HEENT: Vision, speech and hearing grossly intact. No oral lesion is noted. NECK: Supple without mass. HEART: Regular rhythm. RESPIRATORY: Chest is clear. ABDOMEN: Soft, nontender, bowel sounds present. BACK: incision covered with dressing. EXTREMITIES: No leg edema. No calf tenderness. MUSCULOSKELETAL: The patient has functional active range of motion of all four extremities. NEUROLOGIC: Cognition grossly intact. Sensation grossly intact to light touch. Strength 4/5. IMPRESSION: 1. Ambulatory dysfunction secondary to lumbar spinal spondylosis with radiculopathy status post decompressive surgery at the [facility] 06/11/[address] Clements. 2. Postoperative anemia associated with hypertension improved status post transfusion 2 units packed red blood cells at outside facility. 3. Obstructive sleep apnea on CPAP. 4. Hypertension, controlled with medication. 5. Hyperlipidemia on meds. 6. Chronic constipation, on meds. 7. Hypothyroidism, on replacement. PLAN: The patient will have a comprehensive program of inpatient rehabilitation with goal of maximizing level of functional independence prior to discharge home with home health care and family. The patient will have PT, OT 90 minutes each discipline, five days a week for gait, strengthening, conditioning, balance, ADLs, any patient and family caregiver training necessary, any adaptive equipment and training necessary. Rehabilitation nursing to assist with bowel, bladder, skin, wound care, medication administration, pain management and social service to assist with discharge planning, community reentry, SCDs for DVT prophylaxis. Follow up with Dr. Mcneil in lieu of Dr. Hardy for above medical concerns. ESTIMATED LENGTH OF STAY: 14 days. PROGNOSIS: Rehab potential appears good for goal of discharging home with home health care modified independent to supervision for ADLs and mobility skills. DIET: Regular. CODE STATUS: Full Job ID: [id number] DocumentID: [id number] Dictated Date: 06/15/2017 12:56:09 Corporate Quality Assurance Manager Date: 06/15/2017 14:46:52 Dictated By: SEEMA REA MD MTDD
--- NOTE | 2017-06-15 15:18 | Occupational Therapy Eval ---
OT Evaluation-General/PLF Medical Diagnosis Admission Date Jun 14, 2017 at 14:04 Medical Diagnosis: L3-4 laminectomy and TLIF, PSIF Onset Date: Jun 11, 2017 Therapy Diagnosis Therapy Diagnosis: decr self, care, decr funct mob, decr act tolerance, weakness Height/Weight Height (Feet): 5 Height (Inches): 8.00 Weight (Pounds): 0 Weight (Ounces): 0.0 Precautions Precautions/Isolations: Fall Prevention, Standard Precautions Safety Interventions: None Comments Back brace on when up. No lifting greater than 5 pounds. No repetitive bending, lifting, twisting. Sponge bath only until sees physician Referral Physician: Kj Medical History Pertinent Medical History: Arthritis, GERD, HTN, Hypothroidism, OA Additional Medical History Sleep apnea. Chronic constipation. beginning of a cataract, per pt report. Anxiety. DJD. Current History Pt was planning on having total knee replacements and found back problem requiring surgery. She said that the pain in her knees is less since surgery. Reviewed History: Yes Social History Home: Single Level (double wide mobile home) Current Living Status: Alone Entry Into Home: Ramp ADL-Prior Level of Function ADL PLOF Comments Pt reported that she has been able to manage her basic self care needs but had some difficulty putting shoes and socks on. She managed her home and cared for two small dogs. She still drives and is retired from [employer]. DME/Equipment: Bath Chair, Shower, Shower Hose Clinical Resource Director, Toilet/Riser OT Current Status Subjective Pt seen in room, up in recliner, agreeable to OT. Pain reported 3/10 "but I'm not doing anything." Appearance Alert, cooperative Mental Status/Objective Comprehension: 5 Expression: 6 Social Interaction: 6 Problem Solvin Memory: 5 Current Glasses/Contacts: Yes Hearing Aids: Yes (but not using them) Dentures/Partials: No Hand Dominance: Right Upper Extremity ROM Grossly WFL bilat Upper Extremity Sensation Pt reported occasional numbness or tingling in her hands but none since surgery Upper Extremity Strength Grossly 4/5 bilat ADL-Treatment Functional [place] Measure 0=Not Assessed/NA 4=Minimal Assistance 1=Total Assistance 5=Supervision or Setup 2=Maximal Assistance 6=Modified [place] 3=Moderate Assistance 7=Complete IndependenceIRFPAI Quality Coding Scale 6 Independent with activity with or without an assistive device 5 Patient requires set up or clean up by helper. Patient completes activity by themselves 4 Supervision or touching assist (CGA). [place] provide cues , steadying assist 3 The helper provides less than half the effort to complete the activity 2 The helper provides more than half the effort to complete the activity 1 Dependent. The helper does all the effort to complete an activity 7 Patient refused to complete or attempt activity 9 The patient did not perform the activity before the current illness or injury 88 Not attempted due to Medical conditions or safety concerns Eating (FIM): 7 (Able to open packages and cut food, feed self) Eating (QC): 6 Grooming (FIM): 5 (brushed teeth, hair, washed face and hands with setup) Oral Hygiene (QC): 5 Bathing (FIM): 4 (Washed and dried all parts except unable to reach feet. Sponge bath. SBA when standing to wash young and bottom, FWW) Shower/Bathe Self (QC): 4 Upper Body Dressing (FIM): 5 (Doffed and donned clothing with setup. No bra) Upper Body Dressing (QC): 5 Lower Body Dressing (FIM): 4 (Able to get shoes off but unable to get socks off and on. SBA when standing to pull pants up. Able to get pants on/off but pt educ to sit to take pants off feet, for safety) Lower Body Dressing (QC): 4 On/Off Footwear (QC): 3 (33%) Toileting (FIM): 5 (Managed clothing and hygiene. BSC over toilet, grab bar, FWW) Toileting Hygiene (QC): 4 Toilet/Commode Transfer (FIM): 5 (SBA getting on and off BSC over toilet, grab bar, FWW) Toilet Transfer (QC): 4 Shower Transfer (FIM): 0 (per physician orders) Pt was unable to don back brace herself. Pt was left up in recliner, all needs met. Education OT Patient Education: Modified ADL techniques, Purpose of tx/functional activities, Rehab process, Safety issues, Transfer techniques Teaching Recipient: Patient Teaching Methods: Demonstration, Discussion Response to Teaching: Verbalize Understanding, Return Demonstration, Reinforcement Needed OT Short Term Goals Short Term Goals Time Frame: Jun 22, 2017 Lower Body Dressing(FIM): 5 Additional Short Term Goals: 1-Demonstrate ADL Tasks, 2-Verbalize Understanding , 3-ImproveStrength/Sri 1=Demonstrate adherence to instructed precautions during ADL tasks. 2=Patient will verbalize/demonstrate understanding of assistive devices/ modifications for ADL. 3=Patient will improve strength/tolerance for activity to enable patient to perform ADL's. OT Solder Cream Maker Goals Fpc Goals Time Frame: Jul 03, 2017 Eating (FIM): 7 Eating (QC): 6 Groomin Oral Hygiene (QC): 6 Bathing(FIM): 6 Shower/Bathe Self (QC): 6 Upper Body Dressing(FIM): 6 Upper Body Dressing (QC): 6 Lower Body Dressing(FIM): 6 Lower Body Dressing (QC): 6 On/Off Footwear (QC): 6 Toileting(FIM): 6 Toileting Hygiene (QC): 6 Toilet/Commode Transfer(FIM): 6 Toilet/Commode Transfer (QC): 6 Additional Goals: 1-Demonstrate ADL Tasks, 2-Verbalize Understanding, 3- ImproveStrength/Sri 1=Demonstrate adherence to instructed precautions during ADL tasks. 2=Patient will verbalize/demonstrate understanding of assistive devices/ modifications for ADL. 3=Patient will improve strength/tolerance for activity to enable patient to perform ADL's. OT Education/Plan Problem List/Assessment Assessment: Decreased Activ Tolerance, Decreased UE Strength, Dependent Transfers, Impaired Self-Care Skills Pt would benefit from skilled OT to increase her independence in basic self care to allow her to safely return to her home to live alone and to decrease caregiver burden. Discharge Recommendations Plan/Recommendations: Continue POC Treatment Plan/Plan of Care Treatment,Training & Education: Yes Patient would benefit from OT for education, treatment and training to promote independence in ADL's, mobility, safety and/or upper extremity function for ADL' s. Plan of Care: ADL Retraining, Functional Mobility, Group Exercise/Act as Ind ( education, exercise, act tolerance, socialization, activity tolerance), UE Funct Exercise/Act, UE Neuromus Re-Ed/Coord Treatment Duration: Jul 03, 2017 Frequency: At least 5 of 7 days/Wk (IRF) Estimated Hrs Per Day: 1.5 hours per day Agreement: Yes Rehab Potential: Good Time/GCodes Start Time: 11:15 Stop Time: 12:10 Total Time Billed (hr/min): 55 Billed Treatment Time visit, 15 minutes evaluation moderate intensity, 40 minutes ADL SOCRATES FRAZIER OT Jun 15, 2017 15:18
[2017-06-15] MEDS: BACLOFEN 10 MG (LIORESAL) TAB PO PRN (17:25)
[2017-06-15 17:57] VITALS: BP 102/61
[2017-06-15] MEDS: ATORVASTATIN 20 MG (LIPITOR) TABLET PO SCH (20:07)
[2017-06-15] MEDS: traZODone 50 MG (DESYREL) TAB PO SCH (20:08)
[2017-06-16 05:45] VITALS: BP 116/74
[2017-06-16] MEDS: HYDROcodone/APAP 10 MG/325 MG (LORTAB) TAB PO PRN ×3 (07:58→20:27)
[2017-06-16] MEDS: LOSARTAN 50 MG (COZAAR) TAB PO SCH (07:58)
[2017-06-16] MEDS: PANTOPRAZOLE 40 MG (PROTONIX) TAB PO SCH (07:58)
[2017-06-16] MEDS: CARVEDILOL 6.25 MG (COREG) TAB PO SCH ×2 (07:58→20:25)
[2017-06-16] MEDS: DOCUSATE SODIUM 100 MG (COLACE) CAP PO SCH ×2 (07:58→20:25)
[2017-06-16] MEDS: HYDROCHLOROTHIAZIDE 25 MG (HCTZ) TAB PO SCH (07:58)
[2017-06-16] MEDS: GABAPENTIN 300 MG (NEURONTIN) CAP PO SCH ×3 (07:58→20:25)
[2017-06-16] MEDS: lisINopril 10 MG (PRINIVIL) TAB PO SCH (07:58)
[2017-06-16] MEDS: SENNOSIDES 8.6 MG (SENOKOT) TAB PO SCH ×2 (07:58→20:26)
[2017-06-16] MEDS: amLODIPine 10 MG (NORVASC) TAB PO SCH (07:58)
[2017-06-16] MEDS: LEVOTHYROXINE 125 MCG (LEVOTHROID) TABLET PO SCH (07:58)
[2017-06-16] MEDS: POLYETHYLENE GLYCOL 17 GM (MIRALAX) PACK PO SCH ×2 (07:59→20:26)
[2017-06-16] MEDS: FLUTICASONE NASAL SPRAY (FLONASE) 16 GM BTL NS SCH ×2 (07:59→20:27)
[2017-06-16] MEDS: BACLOFEN 10 MG (LIORESAL) TAB PO PRN ×2 (08:45→20:27)
--- NOTE | 2017-06-16 10:58 | Physical Therapy Daily Note ---
PT Daily Note-Current Subjective Patient in recliner pre tx, agrees to PT, has 6-7/10 pain. Appearance Patient in recliner post tx with legs elevated, has nurse call, phone, tray, all needs met. Mental Status Patient Orientation: Normal For Age LSO Transfers Functional [place] Measure 0=Not Assessed/NA 4=Minimal Assistance 1=Total Assistance 5=Supervision or Setup 2=Maximal Assistance 6=Modified [place] 3=Moderate Assistance 7=Complete IndependenceIRFPAI Quality Coding Scale 6 Independent with activity with or without an assistive device 5 Patient requires set up or clean up by helper. Patient completes activity by themselves 4 Supervision or touching assist (CGA). [place] provide cues , steadying assist 3 The helper provides less than half the effort to complete the activity 2 The helper provides more than half the effort to complete the activity 1 Dependent. The helper does all the effort to complete an activity 7 Patient refused to complete or attempt activity 9 The patient did not perform the activity before the current illness or injury 88 Not attempted due to Medical conditions or safety concerns Transfers (B, C, W/C) (FIM): 5 Sit to/from Stand: 5 Gait Training Gait (FIM): 5 Distance: 300'x2, 150' Gait Level of Assist: 5 Gait Persons Needed: 1 Gait Assistive Device: FWW slow ambulation Exercises Standing: Hip Abduction, Hamstring curls, Heel/toe raises, Mini squats Standing Reps: 15 NuStep Minutes: 15 NuStep Workload: 6 Treatments transfers, ambulation, functional strengthening Assessment Current Status: Fair Progress improving endurance PT Short Term Goals Short Term Goals Time Frame: Jun 22, 2017 Gait (FIM): 5 Gait Distance Comment: 200' Gait Level of Assist: 5 Gait Assistive Device: FWW PT Autographer Goals Chcf Goals PT Chcf Goals Time Frame: Jul 06, 2017 Transfers (B,C,W/C) (FIM): 6 Sit to Lying (QC): 6 Lying-Sitting on Side/Bed(QC): 6 Sit to Stand (QC): 6 Rollin Roll Left to Right (QC): 6 Chair/Hed-ju-Ouodl Xfer(QC): 6 Car Transfer (QC): 6 Gait (FIM): 6 Distance: 300' Walk 10 feet (QC): 6 Walk 10ft-Uneven Surface(QC): 6 Walk 50ft with 2 Turns (QC): 6 Walk 150 ft (QC): 6 Gait Assistive Device: FWW Stairs (FIM): 5 # of Steps: 12 1 Step (curb) (QC): 4 4 Steps (QC): 4 12 Steps (QC): 4 Stairs Level Of Assist: 5 PT Plan Problem List Problem List: Activity Tolerance, Functional Strength, Safety, Balance, Gait, Transfer Treatment/Plan Treatment Plan: Continue Plan of Care Treatment Plan: Bed Mobility, Education, Functional Activity Sri, Functional Strength, Group Therapy, Gait, Safety, Therapeutic Exercise, Transfers Treatment Duration: Jul 06, 2017 Frequency: At least 5 of 7 days/Wk (IRF) Estimated Hrs Per Day: 1.5 hours per day Patient and/or Family Agrees t: Yes Safety Risks/Education Patient Education: Gait Training, Transfer Techniques, Correct Positioning, Reviewed Don/Doff Brace, Safety Issues Teaching Recipient: Patient Teaching Methods: Demonstration, Discussion Response to Teaching: Reinforcement Needed Time/GCodes Time In: 1000 Time Out: 1059 Total Billed Treatment Time: 59 Total Billed Treatment 1 visit GT 29' EX 30' JIMMIE SOUZA PT Jun 16, 2017 10:57
--- NOTE | 2017-06-16 11:07 | ST Cognitive Linguistic Eval ---
Speech Evaluation-General Medical Diagnosis L3-4 laminectomy and TLIF, PSIF Onset Date: Jun 11, 2017 Therapy Diagnosis Therapy Diagnosis: Cognitive Linguistic Skills WNL Precautions Precautions/Isolations: Fall Prevention, Standard Precautions Referral Referring Physician: Dr. Ryan Underwood Reason for Referral: Evaluation/Treatment Cognitive Evaluation Medical History Pertinent Medical History: Arthritis, GERD, HTN, Hypothroidism, OA Reviewed History: Yes Social History Current Living Status: Alone Speech PLF-Current Status Prior Level of Function The patient denied prior challenges with cognition, speech, or language. Subjective The patient was recently admitted to [facility] following a lumbar procedure on 06/11/17. The patient greeted the clinician appropriately and was agreeable to participation in the cognitive evaluation. Language Eval: Auditory Comprehends Simple Yes/No Ques: Functional Indent/Objects Multiple Rain: Functional Ident/Pics in Multiple Rain: Functional Follows 1-Step Commands: Functional Follows Complex Directions: Functional Follows General Conversations: Functional Language Eval: Verbal Language Completes Spontaneous Greeting: Functional Produces Auto, Serial Info: Functional Imitates Simple Words/Phrases: Functional Word Finding: Functional Requests Basic Needs: Functional States Basic Personal Info: Functional Expresses Complex Ideas: Functional Cognitive Patient Orientation The patient was independently oriented to self, location, month, year, and day of week. Objective Cognitive Domain Attention: WNL Memory: WNL Problem Solving: Functional Objective Impression The patient demonstrated cognitive linguistic skills WNL and appropriate for completion of ADL's. Communication/Social Cognition Comprehension: 6 Expression: 6 Social Interaction: 6 Problem Solvin Memory: 6 Speech Patient Assess Expression of Ideas/Wants: Expression (4) Understanding [place] Content: Understands (4) Brief Interview-Mental Status: Yes Repetition of Three Words: Three (3) Temporal Orientation: Year: Correct (3) Temporal Orientation: Month: Accurate within 5 days(2) Temporal Orientation: Day: Correct (1) Recall : Wear to say "Sock": Yes, no cue required (2) Recall : Color: Yes, no cue required (2) Recall : Bed: Yes, no cue required (2) Speech-Plan Treatment Plan Speech Therapy Treatment Plan: Discontinue ST Evaluation, only. Frequency: Modified Program (IRF) Estimated Hrs Per Day: Other Rehab Potential: Good Safety Risks/Education Teaching Recipient: Patient Teaching Methods: Discussion Response to Teaching: Verbalize Understanding Education Topics Provided: Results, Recommendations, Plan of Care Time Speech Therapy Time In: 09:30 Speech Therapy Time Out: 09:45 Total Billed Time: 15 Billed Treatment Time 1, SELINA PETERSEN Jun 16, 2017 11:07
--- NOTE | 2017-06-16 11:13 | Occupational Ther Daily Note ---
OT Current Status-Daily Note Subjective Pt sitting in chair, states she is having trouble getting comfortable. Agrees to treatment. Pt reports 6/10 back pain, has taken pain medication Mental Status/Objective Functional [place] Measure 0=Not Assessed/NA 4=Minimal Assistance 1=Total Assistance 5=Supervision or Setup 2=Maximal Assistance 6=Modified [place] 3=Moderate Assistance 7=Complete [place] ADL-Treatment Pt completed sponge bath while seated in chair. Pt doffed shirt without assistance. Used dressing stick to doff underwear, pants, and socks with SBA. Upper body bathing completed with set up. Pt used long handled sponge to wash lower legs/feet. Stood with supervision to wash buttocks and young area. Don pullover shirt with set up. Pt able to don lumbar brace with minimal assistance and cues for technique. Pt instructed in use of adaptive equipment for LE dressing. Pt donned underwear and sweatpants with minimal assistance using die cut operator to start over feet. Stood with supervision for pant hike. Pt donned socks with SBA using sock aid. Gait to restroom with FWW, no LOB noted. Transfer to [facility] over toilet with SBA. Pt able to complete toileting hygiene and clothing management with SBA. Grooming tasks completed standing at sink with modified independence. Pt requires occasional rest breaks throughout ADL tasks secondary to fatigue and discomfort. Functional [place] Measure 0=Not Assessed/NA 4=Minimal Assistance 1=Total Assistance 5=Supervision or Setup 2=Maximal Assistance 6=Modified [place] 3=Moderate Assistance 7=Complete IndependenceIRFPAI Quality Coding Scale 6 Independent with activity with or without an assistive device 5 Patient requires set up or clean up by helper. Patient completes activity by themselves 4 Supervision or touching assist (CGA). [place] provide cues , steadying assist 3 The helper provides less than half the effort to complete the activity 2 The helper provides more than half the effort to complete the activity 1 Dependent. The helper does all the effort to complete an activity 7 Patient refused to complete or attempt activity 9 The patient did not perform the activity before the current illness or injury 88 Not attempted due to Medical conditions or safety concerns Grooming (FIM): 6 Oral Hygiene (QC): 6 Bathing (FIM): 5 Shower/Bathe Self (QC): 5 Upper Body (FIM): 5 Upper Body Dressing (QC): 5 Lower Body Dressing (FIM): 4 Lower Body Dressing (QC): 3 On/Off Footwear (QC): 4 Toileting (FIM): 5 Toileting Hygiene (QC): 4 Toilet/Commode Transfer (FIM): 5 Toilet Transfer (QC): 4 Other Treatment Gait to therapy gym with FWW, no LOB noted. Pt completed arm bike activity x10 minutes to increase overall strength and activity tolerance needed for ADLs and transfers. Pt completed task with minimal resistance and slow pace. No rest breaks needed. Pt returned to room, transferred to chair with supervision. All needs met and speech therapist present after session. Education OT Patient Education: Modified ADL techniques Teaching Recipient: Patient Teaching Methods: Demonstration, Discussion Response to Teaching: Verbalize Understanding OT Short Term Goals Short Term Goals Time Frame: Jun 22, 2017 Lower Body Dressing(FIM): 5 Additional Short Term Goals: 1-Demonstrate ADL Tasks, 2-Verbalize Understanding , 3-ImproveStrength/Sri 1=Demonstrate adherence to instructed precautions during ADL tasks. 2=Patient will verbalize/demonstrate understanding of assistive devices/ modifications for ADL. 3=Patient will improve strength/tolerance for activity to enable patient to perform ADL's. OT Penitentiary Goals Infrastructure Technician Goals Time Frame: Jul 03, 2017 Eating (FIM): 7 Eating (QC): 6 Groomin Oral Hygiene (QC): 6 Bathing(FIM): 6 Shower/Bathe Self (QC): 6 Upper Body Dressing(FIM): 6 Upper Body Dressing (QC): 6 Lower Body Dressing(FIM): 6 Lower Body Dressing (QC): 6 On/Off Footwear (QC): 6 Toileting(FIM): 6 Toileting Hygiene (QC): 6 Toilet/Commode Transfer(FIM): 6 Toilet/Commode Transfer (QC): 6 Additional Goals: 1-Demonstrate ADL Tasks, 2-Verbalize Understanding, 3- ImproveStrength/Sri 1=Demonstrate adherence to instructed precautions during ADL tasks. 2=Patient will verbalize/demonstrate understanding of assistive devices/ modifications for ADL. 3=Patient will improve strength/tolerance for activity to enable patient to perform ADL's. OT Education/Plan Problem List/Assessment Pt would benefit from skilled OT to increase her independence in basic self care to allow her to safely return to her home to live alone and to decrease caregiver burden. Discharge Recommendations Plan/Recommendations: Continue POC Treatment Plan/Plan of Care Patient would benefit from OT for education, treatment and training to promote independence in ADL's, mobility, safety and/or upper extremity function for ADL' s. Plan of Care: ADL Retraining, Functional Mobility, Group Exercise/Act as Ind ( education, exercise, act tolerance, socialization, activity tolerance), UE Funct Exercise/Act, UE Neuromus Re-Ed/Coord Treatment Duration: Jul 03, 2017 Frequency: At least 5 of 7 days/Wk (IRF) Estimated Hrs Per Day: 1.5 hours per day Agreement: Yes Rehab Potential: Good Time/GCodes Start Time: 08:00 Stop Time: 09:30 Total Time Billed (hr/min): 90 Billed Treatment Time 1 visit, ADLx5(70minutes), EX(20minutes) MARTHA BECKHAM OT Jun 16, 2017 11:13
--- NOTE | 2017-06-16 13:28 | Physical Therapy Daily Note ---
PT Daily Note-Current Subjective Patient in recliner pre tx, agrees to PT, has pain of 3/10. Appearance Patient in recliner post tx with nurse call, phone, tray, all needs met. Mental Status Patient Orientation: Normal For Age Transfers Functional [place] Measure 0=Not Assessed/NA 4=Minimal Assistance 1=Total Assistance 5=Supervision or Setup 2=Maximal Assistance 6=Modified [place] 3=Moderate Assistance 7=Complete IndependenceIRFPAI Quality Coding Scale 6 Independent with activity with or without an assistive device 5 Patient requires set up or clean up by helper. Patient completes activity by themselves 4 Supervision or touching assist (CGA). [place] provide cues , steadying assist 3 The helper provides less than half the effort to complete the activity 2 The helper provides more than half the effort to complete the activity 1 Dependent. The helper does all the effort to complete an activity 7 Patient refused to complete or attempt activity 9 The patient did not perform the activity before the current illness or injury 88 Not attempted due to Medical conditions or safety concerns Transfers (B, C, W/C) (FIM): 5 Sit to/from Stand: 5 Gait Training Gait (FIM): 5 Distance: 350'x2 Gait Level of Assist: 5 Gait Persons Needed: 1 Gait Assistive Device: FWW slow but steady ambulation Treatments transfers, ambulation Assessment Current Status: Fair Progress improving ambulation and endurance PT Short Term Goals Short Term Goals Time Frame: Jun 22, 2017 Gait (FIM): 5 Gait Distance Comment: 200' Gait Level of Assist: 5 Gait Assistive Device: FWW PT Fpc Goals Fpc Goals PT Sales Representative [employer]ers Goals Time Frame: Jul 06, 2017 Transfers (B,C,W/C) (FIM): 6 Sit to Lying (QC): 6 Lying-Sitting on Side/Bed(QC): 6 Sit to Stand (QC): 6 Rollin Roll Left to Right (QC): 6 Chair/Qlq-sk-Rrpem Xfer(QC): 6 Car Transfer (QC): 6 Gait (FIM): 6 Distance: 300' Walk 10 feet (QC): 6 Walk 10ft-Uneven Surface(QC): 6 Walk 50ft with 2 Turns (QC): 6 Walk 150 ft (QC): 6 Gait Assistive Device: FWW Stairs (FIM): 5 # of Steps: 12 1 Step (curb) (QC): 4 4 Steps (QC): 4 12 Steps (QC): 4 Stairs Level Of Assist: 5 PT Plan Problem List Problem List: Activity Tolerance, Functional Strength, Safety, Balance, Gait, Transfer, Bed Mobility Treatment/Plan Treatment Plan: Continue Plan of Care Treatment Plan: Bed Mobility, Education, Functional Activity Sri, Functional Strength, Group Therapy, Gait, Safety, Therapeutic Exercise, Transfers Treatment Duration: Jul 06, 2017 Frequency: At least 5 of 7 days/Wk (IRF) Estimated Hrs Per Day: 1.5 hours per day Patient and/or Family Agrees t: Yes Safety Risks/Education Patient Education: Gait Training, Transfer Techniques, Correct Positioning, Safety Issues Teaching Recipient: Patient Teaching Methods: Demonstration, Discussion Response to Teaching: Reinforcement Needed Time/GCodes Time In: 1259 Time Out: 1330 Total Billed Treatment Time: 31 Total Billed Treatment 1 visit GT 31' JIMMIE SOUZA PT Jun 16, 2017 13:28
[2017-06-16 18:52] VITALS: BP 105/66
--- NOTE | 2017-06-16 19:32 | PM & R (SOAP) Progress Note ---
Subjective Time Seen by Provider: 19:20 Subjective/Events-last exam Patient was seen in her room this evening Progressing well with therapies Patient SBA for transfers with walker.Pain well controlledPatient reports pain much improved s/p spinal surgery/Appreciate DR Martinez note Review of Systems Musculoskeletal: back pain Objective Exam Last Set of Vital Signs Vital Signs Date Time Temp Pulse Resp B/P (MAP) Pulse Ox O2 Delivery O2 Flow Rate FiO2 06/16/17 18:52 98.8 82 16 105/66 (79) 91 Room Air Capillary Refill : I&O Intake and Output 06/16/17 00:00 Intake Total 1190 ml Balance 1190 ml Intake Oral 1190 ml # Voids 8 # Bowel Movements 1 General: Alert, Oriented X3, Cooperative, No Acute Distress HEENT: Atraumatic, PERRLA, EOMI, Mucous Memb Moist/[place] Neck: Supple, No JVD Lungs: Clear to Auscultation Heart: Normal S1 Abdomen: Normal Bowel Sounds, Soft, No Tenderness Extremities: No Edema Skin: Other (incision covered with dressing) Neuro: Other (4/5 strength) Psych/Mental Status: Mental Status NL, Mood NL Assessment/Plan Assessment Lumbar spondylosis with radiculopathy improved s/p decompressive surgery OSH Postop anemia associated with hypotension improved s/p transfusion PRBCS OSH KORTNEY on cpap HTN controlled with meds Chronic constipation on meds HLP on meds Hypothyroidism on replacement Plan Continue PT/OT Team Conference tomorrow F/U with Hospitalist SEEMA Rios MD Jun 16, 2017 19:32
[2017-06-16] MEDS: ATORVASTATIN 20 MG (LIPITOR) TABLET PO SCH (20:25)
[2017-06-16] MEDS: traZODone 50 MG (DESYREL) TAB PO SCH (20:33)
[2017-06-17 05:23] VITALS: BP 110/72
[2017-06-17] MEDS: PANTOPRAZOLE 40 MG (PROTONIX) TAB PO SCH (08:13)
[2017-06-17] MEDS: POLYETHYLENE GLYCOL 17 GM (MIRALAX) PACK PO SCH ×2 (08:13→20:36)
[2017-06-17] MEDS: BACLOFEN 10 MG (LIORESAL) TAB PO PRN ×2 (08:13→20:44)
[2017-06-17] MEDS: lisINopril 10 MG (PRINIVIL) TAB PO SCH (08:13)
[2017-06-17] MEDS: CARVEDILOL 6.25 MG (COREG) TAB PO SCH ×2 (08:13→20:36)
[2017-06-17] MEDS: HYDROCHLOROTHIAZIDE 25 MG (HCTZ) TAB PO SCH (08:13)
[2017-06-17] MEDS: amLODIPine 10 MG (NORVASC) TAB PO SCH (08:13)
[2017-06-17] MEDS: DOCUSATE SODIUM 100 MG (COLACE) CAP PO SCH ×2 (08:13→20:35)
[2017-06-17] MEDS: LOSARTAN 50 MG (COZAAR) TAB PO SCH (08:13)
[2017-06-17] MEDS: LEVOTHYROXINE 125 MCG (LEVOTHROID) TABLET PO SCH (08:13)
[2017-06-17] MEDS: HYDROcodone/APAP 10 MG/325 MG (LORTAB) TAB PO PRN ×2 (08:13→20:44)
[2017-06-17] MEDS: SENNOSIDES 8.6 MG (SENOKOT) TAB PO SCH ×2 (08:13→20:35)
[2017-06-17] MEDS: GABAPENTIN 300 MG (NEURONTIN) CAP PO SCH ×3 (08:13→20:36)
[2017-06-17] MEDS: FLUTICASONE NASAL SPRAY (FLONASE) 16 GM BTL NS SCH ×2 (08:15→20:35)
--- NOTE | 2017-06-17 11:06 | Physical Therapy Daily Note ---
PT Daily Note-Current Subjective Pt. agrees to rx and feels she has had great success with her surgery. Pain Numeric Pain Scale: 3 Location: Medial Location Body Site: Back Pain Description: Throbbing Mental Status Patient Orientation: Normal For Age Attachments: Other-See Comments (back brace) Transfers Functional [place] Measure 0=Not Assessed/NA 4=Minimal Assistance 1=Total Assistance 5=Supervision or Setup 2=Maximal Assistance 6=Modified [place] 3=Moderate Assistance 7=Complete IndependenceIRFPAI Quality Coding Scale 6 Independent with activity with or without an assistive device 5 Patient requires set up or clean up by helper. Patient completes activity by themselves 4 Supervision or touching assist (CGA). [place] provide cues , steadying assist 3 The helper provides less than half the effort to complete the activity 2 The helper provides more than half the effort to complete the activity 1 Dependent. The helper does all the effort to complete an activity 7 Patient refused to complete or attempt activity 9 The patient did not perform the activity before the current illness or injury 88 Not attempted due to Medical conditions or safety concerns Transfers (B, C, W/C) (FIM): 6 Scootin Rollin Supine to/from Sit: 6 Sit to/from Stand: 6 Gait Training Does the Patient Walk?: Yes Gait (FIM): 5 Distance (FIM): 3=150 ft Gait Level of Assist: 5 Gait Persons Needed: 1 Gait Assistive Device: FWW Stair Training Stair Training: Handrails/: 2 handrails Stairs (FIM): 5 #of Steps: 4 Stairs: Pattern: Step to Level of Assist: 5 Exercises Supine Ex: Ankle pumps, Quad Set, Rolling, Glut sets, Heel Slides, Short Arc Quads, Scooting, Hip abd/add Supine Reps: 15 Seated Therapy Exercises: Ankle pumps, Sit to stand, Long arc quads, Hip flexion, Hip abd/add Seated Reps: 15 NuStep Minutes: 12 NuStep Workload: 7 Assessment Current Status: Good Progress PT Short Term Goals Short Term Goals Time Frame: Jun 22, 2017 Gait (FIM): 5 Gait Distance Comment: 200' Gait Level of Assist: 5 Gait Assistive Device: FWW PT Snf Goals [employer] Supervisor Goals PT Snf Goals Time Frame: Jul 06, 2017 Transfers (B,C,W/C) (FIM): 6 Sit to Lying (QC): 6 Lying-Sitting on Side/Bed(QC): 6 Sit to Stand (QC): 6 Rollin Roll Left to Right (QC): 6 Chair/Tns-fr-Geiul Xfer(QC): 6 Car Transfer (QC): 6 Gait (FIM): 6 Distance: 300' Walk 10 feet (QC): 6 Walk 10ft-Uneven Surface(QC): 6 Walk 50ft with 2 Turns (QC): 6 Walk 150 ft (QC): 6 Gait Assistive Device: FWW Stairs (FIM): 5 # of Steps: 12 1 Step (curb) (QC): 4 4 Steps (QC): 4 12 Steps (QC): 4 Stairs Level Of Assist: 5 PT Plan Treatment/Plan Treatment Plan: Continue Plan of Care Treatment Plan: Bed Mobility, Education, Functional Activity Sri, Functional Strength, Group Therapy, Gait, Safety, Therapeutic Exercise, Transfers Treatment Duration: Jul 06, 2017 Frequency: At least 5 of 7 days/Wk (IRF) Estimated Hrs Per Day: 1.5 hours per day Patient and/or Family Agrees t: Yes Safety Risks/Education Patient Education: Gait Training, Transfer Techniques, Steps, Correct Positioning, Reviewed Don/Doff Brace, Safety Issues Teaching Recipient: Patient Teaching Methods: Demonstration, Discussion Response to Teaching: Verbalize Understanding, Return Demonstration, Reinforcement Needed Time/GCodes Time In: 1000 Time Out: 1100 Total Billed Treatment Time: 60 Total Billed Treatment 1,EX25,FA20,GT15 G Codes Necessary: DHARA Martinez WIND PLANT MANAGER Jun 17, 2017 11:06
--- NOTE | 2017-06-17 11:06 | Occupational Ther Daily Note ---
OT Current Status-Daily Note Subjective Pt sitting in chair, agrees to treatment.Pt reports 7/10 back pain. Mental Status/Objective Functional [place] Measure 0=Not Assessed/NA 4=Minimal Assistance 1=Total Assistance 5=Supervision or Setup 2=Maximal Assistance 6=Modified [place] 3=Moderate Assistance 7=Complete [place] ADL-Treatment Pt is unable to shower, but would like to wash her hair. Min assist to don lumbar brace. Pt performed gait to shower room with FWW, no LOB noted. Assisted pt to wash hair while maintaining back precautions. Pt returned to room and combed hair with modified independence. Sponge bath completed while seated in chair. Pt doffed shirt without assistance. Doffed underwear and pants with SBA using dressing stick to push over feet. Pt able to wash/dry all areas after set up. Uses long handled sponge to wash lower legs and feet. Don pullover shirt with set up. Pt donned brace with set up. Pt used dot etcher to start underwear and pants over feet. Stood with supervision for balance during pant hike. Pt used sock aid to don socks with SBA. Transfer to [facility] [place] toilet with SBA. Pt able to complete toileting hygiene and clothing management with SBA. Grooming tasks completed at sink with modified independence. Pt takes occasional rest breaks during ADL tasks. Functional [place] Measure 0=Not Assessed/NA 4=Minimal Assistance 1=Total Assistance 5=Supervision or Setup 2=Maximal Assistance 6=Modified [place] 3=Moderate Assistance 7=Complete IndependenceIRFPAI Quality Coding Scale 6 Independent with activity with or without an assistive device 5 Patient requires set up or clean up by helper. Patient completes activity by themselves 4 Supervision or touching assist (CGA). [place] provide cues , steadying assist 3 The helper provides less than half the effort to complete the activity 2 The helper provides more than half the effort to complete the activity 1 Dependent. The helper does all the effort to complete an activity 7 Patient refused to complete or attempt activity 9 The patient did not perform the activity before the current illness or injury 88 Not attempted due to Medical conditions or safety concerns Grooming (FIM): 6 Oral Hygiene (QC): 6 Bathing (FIM): 5 Shower/Bathe Self (QC): 5 Upper Body (FIM): 5 Upper Body Dressing (QC): 5 Lower Body Dressing (FIM): 5 On/Off Footwear (QC): 5 Toileting (FIM): 5 Toilet/Commode Transfer (FIM): 5 Other Treatment Pt performed gait to therapy gym with FWW, no LOB noted. Pt completed arm bike activity [id number] to promote increased overall strength and activity tolerance needed for functional tasks. Pt completed activity with minimal resistance and steady pace. No rest breaks needed. Pt returned to room, sitting in chair with needs met after session. OT Short Term Goals Short Term Goals Time Frame: Jun 22, 2017 Lower Body Dressing(FIM): 5 Additional Short Term Goals: 1-Demonstrate ADL Tasks, 2-Verbalize Understanding , 3-ImproveStrength/Sri 1=Demonstrate adherence to instructed precautions during ADL tasks. 2=Patient will verbalize/demonstrate understanding of assistive devices/ modifications for ADL. 3=Patient will improve strength/tolerance for activity to enable patient to perform ADL's. OT Halfway Goals Halfway Goals Time Frame: Jul 03, 2017 Eating (FIM): 7 Eating (QC): 6 Groomin Oral Hygiene (QC): 6 Bathing(FIM): 6 Shower/Bathe Self (QC): 6 Upper Body Dressing(FIM): 6 Upper Body Dressing (QC): 6 Lower Body Dressing(FIM): 6 Lower Body Dressing (QC): 6 On/Off Footwear (QC): 6 Toileting(FIM): 6 Toileting Hygiene (QC): 6 Toilet/Commode Transfer(FIM): 6 Toilet/Commode Transfer (QC): 6 Additional Goals: 1-Demonstrate ADL Tasks, 2-Verbalize Understanding, 3- ImproveStrength/Sri 1=Demonstrate adherence to instructed precautions during ADL tasks. 2=Patient will verbalize/demonstrate understanding of assistive devices/ modifications for ADL. 3=Patient will improve strength/tolerance for activity to enable patient to perform ADL's. OT Education/Plan Problem List/Assessment Pt would benefit from skilled OT to increase her independence in basic self care to allow her to safely return to her home to live alone and to decrease caregiver burden. Discharge Recommendations Plan/Recommendations: Continue POC Treatment Plan/Plan of Care Patient would benefit from OT for education, treatment and training to promote independence in ADL's, mobility, safety and/or upper extremity function for ADL' s. Plan of Care: ADL Retraining, Functional Mobility, Group Exercise/Act as Ind ( education, exercise, act tolerance, socialization, activity tolerance), UE Funct Exercise/Act, UE Neuromus Re-Ed/Coord Treatment Duration: Jul 03, 2017 Frequency: At least 5 of 7 days/Wk (IRF) Estimated Hrs Per Day: 1.5 hours per day Agreement: Yes Rehab Potential: Good Time/GCodes Start Time: 08:00 Stop Time: 09:30 Total Time Billed (hr/min): 90 Billed Treatment Time 1 visit, ADLx5(75minutes), EX(15minutes) MARTHA BECKHAM OT Jun 17, 2017 11:06
--- NOTE | 2017-06-17 14:33 | Physical Therapy Daily Note ---
PT Daily Note-Current Subjective Pt. states she is fatigued this PM and is ready for a nap after Rx. Mental Status Patient Orientation: Normal For Age Transfers Functional [place] Measure 0=Not Assessed/NA 4=Minimal Assistance 1=Total Assistance 5=Supervision or Setup 2=Maximal Assistance 6=Modified [place] 3=Moderate Assistance 7=Complete IndependenceIRFPAI Quality Coding Scale 6 Independent with activity with or without an assistive device 5 Patient requires set up or clean up by helper. Patient completes activity by themselves 4 Supervision or touching assist (CGA). [place] provide cues , steadying assist 3 The helper provides less than half the effort to complete the activity 2 The helper provides more than half the effort to complete the activity 1 Dependent. The helper does all the effort to complete an activity 7 Patient refused to complete or attempt activity 9 The patient did not perform the activity before the current illness or injury 88 Not attempted due to Medical conditions or safety concerns in out bed and chair and on off toilet all SBA Gait Training Gait Assistive Device: FWW 200 ft , 100 ft with brace insitu FWW no cruz LOB, some trunk flexion noted as well as moderate wt bearing on FWW Treatments toileting all SBA, handwashing as well. TRFs into bed SBA. Assessment Current Status: Good Progress PT Short Term Goals Short Term Goals Time Frame: Jun 22, 2017 Gait (FIM): 5 Gait Distance Comment: 200' Gait Level of Assist: 5 Gait Assistive Device: FWW PT Long-Term Goals Cat Breeder Goals PT Long-Term Goals Time Frame: Jul 06, 2017 Transfers (B,C,W/C) (FIM): 6 Sit to Lying (QC): 6 Lying-Sitting on Side/Bed(QC): 6 Sit to Stand (QC): 6 Rollin Roll Left to Right (QC): 6 Chair/Mec-xz-Vqqzb Xfer(QC): 6 Car Transfer (QC): 6 Gait (FIM): 6 Distance: 300' Walk 10 feet (QC): 6 Walk 10ft-Uneven Surface(QC): 6 Walk 50ft with 2 Turns (QC): 6 Walk 150 ft (QC): 6 Gait Assistive Device: FWW Stairs (FIM): 5 # of Steps: 12 1 Step (curb) (QC): 4 4 Steps (QC): 4 12 Steps (QC): 4 Stairs Level Of Assist: 5 PT Plan Treatment/Plan Treatment Plan: Continue Plan of Care Treatment Plan: Bed Mobility, Education, Functional Activity Sri, Functional Strength, Group Therapy, Gait, Safety, Therapeutic Exercise, Transfers Treatment Duration: Jul 06, 2017 Frequency: At least 5 of 7 days/Wk (IRF) Estimated Hrs Per Day: 1.5 hours per day Patient and/or Family Agrees t: Yes Safety Risks/Education Patient Education: Gait Training, Transfer Techniques, Correct Positioning, Safety Issues Teaching Recipient: Patient Teaching Methods: Demonstration, Discussion Response to Teaching: Verbalize Understanding, Return Demonstration, Reinforcement Needed Time/GCodes Time In: 1400 Time Out: 1430 Total Billed Treatment Time: 30 Total Billed Treatment 1,FA15m,GT15m G Codes Necessary: DHARA Martinez WATER WELL DRILLER Jun 17, 2017 14:33
--- NOTE | 2017-06-17 15:09 | PM & R (SOAP) Progress Note ---
Subjective Time Seen by Provider: 08:30 Subjective/Events-last exam Patient was seen in her room this AM Patient SBA for transfers Pain well controlled Review of Systems Musculoskeletal: back pain Objective Exam Last Set of Vital Signs Vital Signs Date Time Temp Pulse Resp B/P (MAP) Pulse Ox O2 Delivery O2 Flow Rate FiO2 06/17/17 09:08 Room Air 06/17/17 05:23 98.9 78 20 110/72 (85) 96 Capillary Refill : I&O Intake and Output 06/17/17 00:00 Intake Total 1395 ml Balance 1395 ml Intake Oral 1395 ml # Voids 5 # Bowel Movements 2 General: Alert, Oriented X3, Cooperative, No Acute Distress HEENT: Atraumatic, PERRLA, EOMI, Mucous Memb Moist/[place] Neck: Supple, No JVD Lungs: Clear to Auscultation Heart: Normal S1 Abdomen: Normal Bowel Sounds, Soft, No Tenderness Extremities: No Edema Skin: Other (incision covered with dressing) Neuro: Other (4/5 strength) Psych/Mental Status: Mental Status NL, Mood NL Assessment/Plan Assessment Lumbar spondylosis with radiculopathy improved s/p decompressive surgery OSH Postop anemia associated with hypotension improved s/p transfusion PRBCS OSH KORTNEY on cpap HTN controlled with meds Chronic constipation on meds HLP on meds Hypothyroidism on replacement Plan Continue PT/OT Team Conference held earlier today-See report for full functional update and POC and ELOS F/U with Hospitalist SEEMA Rios MD Jun 17, 2017 15:09
--- NOTE | 2017-06-17 15:19 | Individualized Plan of Care ---
Individualized Plan of Care Rehab Nursing IPOC Order Admission Date Jun 14, 2017 at 14:04 Current Orders Orders General/Regular (06/14/17 Dinner) Physical Therapy [place] (06/14/17 11:04) Occupational Therapy Order (06/14/17 11:04) Speech Therapy Rehab Orders (06/14/17 11:04) Admission-Acute Rehab Unit (06/14/17 11:24) Hydrocodone/Apap 10/325 Tablet (Lortab 1 (06/14/17 16:45) Nursing Communication (Patient (06/14/17 16:35) Nursing Communication (Patient (06/14/17 16:35) Acetaminophen Tablet/Caplet (Tylenol T (06/14/17 20:30) Amlodipine Tablet (Norvasc Tablet) (06/15/17 09:00) Atorvastatin Tablet (Lipitor Tablet) (06/14/17 21:00) Bisacodyl Suppository (Dulcolax Supposit (06/14/17 20:30) Carvedilol Tablet (Coreg Tablet) (06/14/17 21:00) Docusate Sodium Capsule (Colace Capsule) (06/14/17 21:00) Fluticasone Nasal [place] (Flonase Nasal S (06/14/17 21:00) Gabapentin Capsule/Tablet (Neurontin Cap (06/14/17 21:00) Hydrochlorothiazide Cap/Tablet (Hctz Cap (06/15/17 09:00) Levothyroxine Tablet (Synthroid Tablet) (06/15/17 09:00) Lisinopril Tablet (Zestril Tablet) (06/15/17 09:00) Losartan Tablet (Cozaar Tablet) (06/15/17 09:00) Magnesium Hydroxide Oral Susp (Mom Oral (06/14/17 20:30) Pantoprazole Tablet (Protonix Tablet) (06/15/17 09:00) Polyethylene Glycol Powder Pkt (Miralax (06/14/17 21:00) Sennosides Tablet (Senokot Tablet) (06/14/17 21:00) Trazodone Tablet (Desyrel Tablet) (06/14/17 21:00) (Nf) Calcium Carbonate (06/14/17 20:30) (Nf) Naproxen (06/14/17 20:30) Baclofen Tablet (Lioresal Tablet) (06/14/17 20:30) Bisacodyl Tablet (Dulcolax Tablet) (06/14/17 20:30) Alprazolam Tablet (Xanax Tablet) (06/14/17 20:30) Acetaminophen Tablet (Tylenol Tablet) (06/14/17 20:30) Hydrocodone/Apap 5/325 Tablet (Lortab 5 (06/14/17 20:30) Ondansetron Oral Dissolve Tab (Zofran (06/14/17 20:30) Calcium Carbonate Chew Tablet (Antacid C (06/14/17 21:15) Calcium Carbonate Chew Tablet (Antacid C (06/14/17 21:15) Naproxen Tablet (Naprosyn Tablet) (06/14/17 21:15) Phenol/Na Phenolate Lozenge (Chlorasepti (06/15/17 08:00) Patient Visit (06/15/17 ) Pt Eval Moderate Complexity (06/15/17 ) Gait Training, Ea 15 Min (06/15/17 ) Exercise Therap, Ea 15 Min (06/15/17 ) Patient Visit (06/15/17 ) Consult Physician (06/16/17 10:44) Patient Visit (06/16/17 ) Speech Sound Lang Comp (06/16/17 ) Patient Visit (06/16/17 ) Gait Training, Ea 15 Min (06/16/17 ) Exercise Therap, Ea 15 Min (06/16/17 ) Patient Visit (06/17/17 ) Exercise Therap, Ea 15 Min (06/17/17 ) Functional Activities, Ea 15 (06/17/17 ) Gait Training, Ea 15 Min (06/17/17 ) Other Nursing Orders: Monitor for postop constipation and urinary retention PT IPOC Problem List: Activity Tolerance, Functional Strength, Safety, Balance, Gait, Transfer, Bed Mobility Treatment Plan: Continue Plan of Care Bed Mobility, Education, Functional Activity Sri, Functional Strength, Group Therapy, Gait, Safety, Therapeutic Exercise, Transfers Treatment Duration: Jul 06, 2017 Frequency: At least 5 of 7 days/Wk (IRF) Estimated Hrs Per Day: 1.5 hours per day OT IPOC Problems: Decreased Activ Tolerance, Decreased UE Strength, Dependent Transfers , Impaired Self-Care Skills OT Treatment, Training and Edu: Yes OT Problems Pt would benefit from skilled OT to increase her independence in basic self care to allow her to safely return to her home to live alone and to decrease caregiver burden. Plan of Care: ADL Retraining, Functional Mobility, Group Exercise/Act as Ind ( education, exercise, act tolerance, socialization, activity tolerance), UE Funct Exercise/Act, UE Neuromus Re-Ed/Coord Treatment Duration: Jul 03, 2017 Frequency: At least 5 of 7 days/Wk (IRF) Estimated Hrs Per Day: 1.[address] IPOC Speech Therapy Treatment Plan: Discontinue ST Treatment Duration: Jun 17, 2017 Frequency: Modified Program (IRF) Estimated Hrs Per Day: Other Payroll Administrative Assistant/Case Mgmt Payroll Administrative Assistant/Case Managemen: Discharge Planning, Patient/Family Counseling Physician IPOC Medical Issues being managed closely and that require the 24 hour availability of a physician: Pain management HTN Chronic constipation GERD Medical Issues: Bowel/Bladder Function, DVT Prophylaxis, Falls Precautions, Infection Protection, Pain Management, Wound Care, Other (List) (as per above) Brief Synthesis of Preadmission Screen, Post-Admission Evaluation, and Therapy Evaluations:67 yo female who had painful Lumbar spinal stenosis associated with radiculopathy both legs who underwent decompressive surgery at OSH who had postop hypotension associated with anemia of blood loss which is now improved s/ p transfusion at OSH,Refeerd to IRU for ongoing care and therapies.The patient had been Independent and living alone in [place] prior to this Has supportive family nearby.Hospitalist following medical concerns in lieu of DR Hardy PCP Medical Prognosis: Good Anticipated Length of Stay: 07-03-17 Rehab Goals Modified Independent for adls and mobility skills Anticipated discharge destinat: Home with [facility] and family SEEMA REA MD Jun 17, 2017 15:19
[2017-06-17 18:15] VITALS: BP 113/60
[2017-06-17] MEDS: ATORVASTATIN 20 MG (LIPITOR) TABLET PO SCH (20:35)
[2017-06-17] MEDS: traZODone 50 MG (DESYREL) TAB PO SCH (20:36)
[2017-06-18 05:04] VITALS: BP 118/69
--- NOTE | 2017-06-18 07:27 | Occupational Ther Daily Note ---
OT Current Status-Daily Note Subjective Pt alert, sitting in recliner. Pt agreed to therapy. Pt c/o pain and muscle spasms, reported to nrsg. Nrsg brought medications. Mental Status/Objective Patient Orientation: Person, Place, Time, Situation Functional [place] Measure 0=Not Assessed/NA 4=Minimal Assistance 1=Total Assistance 5=Supervision or Setup 2=Maximal Assistance 6=Modified [place] 3=Moderate Assistance 7=Complete [place] ADL-Treatment Pt agreed to sponge bath. After set up, pt was able to complete bathing using AE for lower body with supervision. After set up, pt able to complete donning/ doffing upper/lower body clothing using AE by self. Assist to position back brace then able to don/doff by self. Pt then ambulated to bathroom and transferred onto toilet using grabbars and FWW with supervision. Pt completed toileting using FWW and grabbars with supervision. Ambulated to sink to complete grooming using FWW with supervision. Nrsg then came into room with pt' s medications. Pt ambulated to therapy gym using FWW with SBA. Pt completed arm bike for 15 min at 15 patton resistance to increase strength and activity tolerance for daily functional tasks. Pt tolerated well. Resistive clothes pins completed 50 each hand to increase strength and dexterity for fine motor skills. Pt then ambulated back to room and transferred to recliner using FWW with SBA. After therapy, pt left in care of PT. All needs met in room. Functional [place] Measure 0=Not Assessed/NA 4=Minimal Assistance 1=Total Assistance 5=Supervision or Setup 2=Maximal Assistance 6=Modified [place] 3=Moderate Assistance 7=Complete IndependenceIRFPAI Quality Coding Scale 6 Independent with activity with or without an assistive device 5 Patient requires set up or clean up by helper. Patient completes activity by themselves 4 Supervision or touching assist (CGA). [place] provide cues , steadying assist 3 The helper provides less than half the effort to complete the activity 2 The helper provides more than half the effort to complete the activity 1 Dependent. The helper does all the effort to complete an activity 7 Patient refused to complete or attempt activity 9 The patient did not perform the activity before the current illness or injury 88 Not attempted due to Medical conditions or safety concerns Grooming (FIM): 5 Oral Hygiene (QC): 5 Bathing (FIM): 5 Bathing Location: L Arm, R Arm, L Upper Leg, R Upper Leg, L Lower Leg ( including foot), R Lower Leg (including foot), Chest, Abdomen, Buttocks, Perineal Area Shower/Bathe Self (QC): 4 Upper Body (FIM): 5 Upper Body Dressing (QC): 5 Lower Body Dressing (FIM): 5 Lower Body Dressing (QC): 4 On/Off Footwear (QC): 5 Toileting (FIM): 5 Toileting Hygiene (QC): 4 Transfers (B, C, W/C) (FIM): 5 Toilet/Commode Transfer (FIM): 5 Toilet Transfer (QC): 4 OT Short Term Goals Short Term Goals Time Frame: Jun 22, 2017 Lower Body Dressing(FIM): 5 Additional Short Term Goals: 1-Demonstrate ADL Tasks, 2-Verbalize Understanding , 3-ImproveStrength/Sri 1=Demonstrate adherence to instructed precautions during ADL tasks. 2=Patient will verbalize/demonstrate understanding of assistive devices/ modifications for ADL. 3=Patient will improve strength/tolerance for activity to enable patient to perform ADL's. OT Assisted Goals Barrel Filler Head Goals Time Frame: Jul 03, 2017 Eating (FIM): 7 Eating (QC): 6 Groomin Oral Hygiene (QC): 6 Bathing(FIM): 6 Shower/Bathe Self (QC): 6 Upper Body Dressing(FIM): 6 Upper Body Dressing (QC): 6 Lower Body Dressing(FIM): 6 Lower Body Dressing (QC): 6 On/Off Footwear (QC): 6 Toileting(FIM): 6 Toileting Hygiene (QC): 6 Toilet/Commode Transfer(FIM): 6 Toilet/Commode Transfer (QC): 6 Additional Goals: 1-Demonstrate ADL Tasks, 2-Verbalize Understanding, 3- ImproveStrength/Sri 1=Demonstrate adherence to instructed precautions during ADL tasks. 2=Patient will verbalize/demonstrate understanding of assistive devices/ modifications for ADL. 3=Patient will improve strength/tolerance for activity to enable patient to perform ADL's. OT Education/Plan Problem List/Assessment Pt would benefit from skilled OT to increase her independence in basic self care to allow her to safely return to her home to live alone and to decrease caregiver burden. Discharge Recommendations Plan/Recommendations: Continue POC Treatment Plan/Plan of Care Patient would benefit from OT for education, treatment and training to promote independence in ADL's, mobility, safety and/or upper extremity function for ADL' s. Plan of Care: ADL Retraining, Functional Mobility, Group Exercise/Act as Ind ( education, exercise, act tolerance, socialization, activity tolerance), UE Funct Exercise/Act, UE Neuromus Re-Ed/Coord Treatment Duration: Jul 03, 2017 Frequency: At least 5 of 7 days/Wk (IRF) Estimated Hrs Per Day: 1.5 hours per day Agreement: Yes Rehab Potential: Good Time/GCodes Start Time: 07:00 Stop Time: 08:30 Total Time Billed (hr/min): 90 Billed Treatment Time 1 visit-ADL 4 (55 min) EX 2 (35 min) KRYSTIAN RILEY Jun 18, 2017 07:27
[2017-06-18] MEDS: HYDROcodone/APAP 10 MG/325 MG (LORTAB) TAB PO PRN ×3 (07:42→20:42)
[2017-06-18] MEDS: LEVOTHYROXINE 125 MCG (LEVOTHROID) TABLET PO SCH (07:42)
[2017-06-18] MEDS: SENNOSIDES 8.6 MG (SENOKOT) TAB PO SCH ×2 (07:42→20:41)
[2017-06-18] MEDS: PANTOPRAZOLE 40 MG (PROTONIX) TAB PO SCH (07:42)
[2017-06-18] MEDS: CARVEDILOL 6.25 MG (COREG) TAB PO SCH ×2 (07:43→20:43)
[2017-06-18] MEDS: amLODIPine 10 MG (NORVASC) TAB PO SCH (07:43)
[2017-06-18] MEDS: LOSARTAN 50 MG (COZAAR) TAB PO SCH (07:43)
[2017-06-18] MEDS: GABAPENTIN 300 MG (NEURONTIN) CAP PO SCH ×3 (07:43→20:42)
[2017-06-18] MEDS: HYDROCHLOROTHIAZIDE 25 MG (HCTZ) TAB PO SCH (07:43)
[2017-06-18] MEDS: lisINopril 10 MG (PRINIVIL) TAB PO SCH (07:43)
[2017-06-18] MEDS: DOCUSATE SODIUM 100 MG (COLACE) CAP PO SCH ×2 (07:43→20:41)
[2017-06-18] MEDS: BACLOFEN 10 MG (LIORESAL) TAB PO PRN ×3 (07:47→20:52)
[2017-06-18] MEDS: FLUTICASONE NASAL SPRAY (FLONASE) 16 GM BTL NS SCH ×2 (07:48→20:41)
[2017-06-18] MEDS: POLYETHYLENE GLYCOL 17 GM (MIRALAX) PACK PO SCH ×2 (07:49→20:41)
--- NOTE | 2017-06-18 11:13 | Physical Therapy Daily Note ---
PT Daily Note-Current Subjective Pt sitting in recliner upon arrival. Pt agrees to PT. Pain Numeric Pain Scale: 5-Moderate Pain Location: Right Location Body Site: Shoulder Pain Description: Ache Mental Status Patient Orientation: Person, Place, Time, Situation Attachments: Other-See Comments (Lumbar back brace) Transfers Functional [place] Measure 0=Not Assessed/NA 4=Minimal Assistance 1=Total Assistance 5=Supervision or Setup 2=Maximal Assistance 6=Modified [place] 3=Moderate Assistance 7=Complete IndependenceIRFPAI Quality Coding Scale 6 Independent with activity with or without an assistive device 5 Patient requires set up or clean up by helper. Patient completes activity by themselves 4 Supervision or touching assist (CGA). [place] provide cues , steadying assist 3 The helper provides less than half the effort to complete the activity 2 The helper provides more than half the effort to complete the activity 1 Dependent. The helper does all the effort to complete an activity 7 Patient refused to complete or attempt activity 9 The patient did not perform the activity before the current illness or injury 88 Not attempted due to Medical conditions or safety concerns Scootin Sit to/from Stand: 6 Sit to Stand (QC): 6 Weight Bearing Right Lower Extremity: Right Full Weight Bearing Left Lower Extremity: Left Full Weight Bearing Gait Training Does the Patient Walk?: Yes Distance (FIM): 3=150 ft Distance: 200' Walk 10 feet (QC): 6 Walk 50 ft with 2 Turns(QC): 6 Walk 150 ft (QC): 6 Gait Level of Assist: 6 Gait Persons Needed: 1 Gait Assistive Device: FWW Pt walks with normalized gait pattern. Wheelchair Training Does the Pt Use a Wheelchair?: No Stair Training Stair Training: Handrails/: 2 handrails #of Steps: 4 1 Step (curb) (QC): 5 4 Steps (QC): 5 Stairs: Pattern: Step to Level of Assist: 5 Exercises Supine Ex: Ankle pumps, Quad Set, Glut sets, Heel Slides (5 per leg due to increase in pain), Straight leg raise, Hip abd/add Supine Reps: 20 Seated Therapy Exercises: Ankle pumps, Long arc quads, Hip flexion, Kicking activity Seated Reps: 20 Treatments Pt dons lumbar brace with minimal assistance from MYSQL DATABASE ADMINISTRATOR. Pt transfers from recliner to standing using FWW at Mod I. Pt ambulates in hallway using FWW at Mod I. Pt completes 1 set of 4 stairs before transferring to Supine on mat for Supine Ex. Pt transfers to EOB for Seated Ex. Pt then transfers to standing using FWW at Mod I and walks back to room to rest in recliner. Pt has all needs met at end of tx. Assessment Current Status: Good Progress Pt's strength and endurance are improving as well as safety and independence of transfers and mobility. PT Short Term Goals Short Term Goals Time Frame: Jun 22, 2017 Gait (FIM): 5 Gait Distance Comment: 200' Gait Level of Assist: 5 Gait Assistive Device: FWW PT Fci Goals Fci Goals PT Internal Audit Director Goals Time Frame: Jul 06, 2017 Transfers (B,C,W/C) (FIM): 6 Sit to Lying (QC): 6 Lying-Sitting on Side/Bed(QC): 6 Sit to Stand (QC): 6 Rollin Roll Left to Right (QC): 6 Chair/Hpu-iq-Hwdin Xfer(QC): 6 Car Transfer (QC): 6 Gait (FIM): 6 Distance: 300' Walk 10 feet (QC): 6 Walk 10ft-Uneven Surface(QC): 6 Walk 50ft with 2 Turns (QC): 6 Walk 150 ft (QC): 6 Gait Assistive Device: FWW Stairs (FIM): 5 # of Steps: 12 1 Step (curb) (QC): 4 4 Steps (QC): 4 12 Steps (QC): 4 Stairs Level Of Assist: 5 PT Plan Problem List Problem List: Activity Tolerance Treatment/Plan Treatment Plan: Continue Plan of Care Treatment Plan: Bed Mobility, Education, Functional Activity Sri, Functional Strength, Group Therapy, Gait, Safety, Therapeutic Exercise, Transfers Treatment Duration: Jul 06, 2017 Frequency: At least 5 of 7 days/Wk (IRF) Estimated Hrs Per Day: 1.5 hours per day Patient and/or Family Agrees t: Yes Safety Risks/Education Patient Education: Correct Positioning, Reviewed Don/Doff Brace, Safety Issues Teaching Recipient: Patient Teaching Methods: Discussion Response to Teaching: Verbalize Understanding Time/GCodes Time In: 830 Time Out: 915 Total Billed Treatment Time: 45 Total Billed Treatment 1, GT (20m) & EX x2 (25m) TATA FRITZ MYSQL DATABASE ADMINISTRATOR Jun 18, 2017 11:13
--- NOTE | 2017-06-18 12:09 | PM & R (SOAP) Progress Note ---
Subjective Time Seen by Provider: 09:50 Subjective/Events-last exam Patient was seen in her room this AM Had questions re reaction to tape used at OSH Advised her to request hypoallergenic tape next time she has a procedure.Rash on face clearing up nicely Progressing well with therapies Discussed discharge date of 06-22-17 with patient and she is agreeable.Patient SBA for transfers Objective Exam Last Set of Vital Signs Vital Signs Date Time Temp Pulse Resp B/P (MAP) Pulse Ox O2 Delivery O2 Flow Rate FiO2 06/18/17 08:06 Room Air 06/18/17 05:04 97.8 77 18 118/69 (85) 94 Capillary Refill : I&O Intake and Output 06/18/17 00:00 Intake Total 2080 ml Balance 2080 ml Intake Oral 2080 ml # Voids 7 General: Alert, Oriented X3, Cooperative, No Acute Distress HEENT: Atraumatic, PERRLA, EOMI, Mucous Memb Moist/[place] Neck: Supple, No JVD Lungs: Clear to Auscultation Heart: Normal S1 Abdomen: Normal Bowel Sounds, Soft, No Tenderness Extremities: No Edema Skin: Other (incision covered with dressing rash on face resolving) Neuro: Other (4/5 strength) Psych/Mental Status: Mental Status NL, Mood NL Assessment/Plan Assessment Lumbar spondylosis with radiculopathy improved s/p decompressive surgery OSH Postop anemia associated with hypotension improved s/p transfusion PRBCS OSH KORTNEY on cpap HTN controlled with meds Chronic constipation on meds HLP on meds Hypothyroidism on replacement Tape allergy Plan Continue PT/OT Team Conference held yesterday -See report for full functional update and POC and ELOS F/U with Hospitalist prn Discharge set tentatively for next week Thursday SEEMA REA MD Jun 18, 2017 12:09
--- NOTE | 2017-06-18 15:00 | Physical Therapy Daily Note ---
PT Daily Note-Current Subjective Pt sitting in recliner upon arrival. Pt agrees to PT. Mental Status Patient Orientation: Person, Place, Time, Situation Attachments: Other-See Comments (Lumbar back brace) Transfers Functional [place] Measure 0=Not Assessed/NA 4=Minimal Assistance 1=Total Assistance 5=Supervision or Setup 2=Maximal Assistance 6=Modified [place] 3=Moderate Assistance 7=Complete IndependenceIRFPAI Quality Coding Scale 6 Independent with activity with or without an assistive device 5 Patient requires set up or clean up by helper. Patient completes activity by themselves 4 Supervision or touching assist (CGA). [place] provide cues , steadying assist 3 The helper provides less than half the effort to complete the activity 2 The helper provides more than half the effort to complete the activity 1 Dependent. The helper does all the effort to complete an activity 7 Patient refused to complete or attempt activity 9 The patient did not perform the activity before the current illness or injury 88 Not attempted due to Medical conditions or safety concerns Scootin Sit to/from Stand: 6 Sit to Stand (QC): 6 Weight Bearing Right Lower Extremity: Right Full Weight Bearing Left Lower Extremity: Left Full Weight Bearing Gait Training Does the Patient Walk?: Yes Distance (FIM): 3=150 ft Distance: 350' Walk 10 feet (QC): 6 Walk 50 ft with 2 Turns(QC): 6 Walk 150 ft (QC): 6 Gait Level of Assist: 6 Gait Persons Needed: 1 Gait Assistive Device: FWW Pt takes rest break during ambulation due to fatigue. Wheelchair Training Does the Pt Use a Wheelchair?: No Exercises NuStep Minutes: 15 NuStep Workload: 6 Treatments Pt dons lumbar back brace with minimal assistance from CAD ADMINISTRATOR. Pt transfers from recliner to standing using FWW at Mod I. Pt ambulates in hallway using FWW at Mod I. Pt uses NuStep for 15m at Workload 6. Pt returns to room at end of tx and rests in recliner with all needs met. Assessment Current Status: Good Progress Pt is improving with distance ambulated before resting. PT Short Term Goals Short Term Goals Time Frame: Jun 22, 2017 Gait (FIM): 5 Gait Distance Comment: 200' Gait Level of Assist: 5 Gait Assistive Device: FWW PT Alf Goals Alf Goals PT Alf Goals Time Frame: Jul 06, 2017 Transfers (B,C,W/C) (FIM): 6 Sit to Lying (QC): 6 Lying-Sitting on Side/Bed(QC): 6 Sit to Stand (QC): 6 Rollin Roll Left to Right (QC): 6 Chair/Zqt-lk-Vwxct Xfer(QC): 6 Car Transfer (QC): 6 Gait (FIM): 6 Distance: 300' Walk 10 feet (QC): 6 Walk 10ft-Uneven Surface(QC): 6 Walk 50ft with 2 Turns (QC): 6 Walk 150 ft (QC): 6 Gait Assistive Device: FWW Stairs (FIM): 5 # of Steps: 12 1 Step (curb) (QC): 4 4 Steps (QC): 4 12 Steps (QC): 4 Stairs Level Of Assist: 5 PT Plan Problem List Problem List: Activity Tolerance Treatment/Plan Treatment Plan: Continue Plan of Care Treatment Plan: Bed Mobility, Education, Functional Activity Sri, Functional Strength, Group Therapy, Gait, Safety, Therapeutic Exercise, Transfers Treatment Duration: Jul 06, 2017 Frequency: At least 5 of 7 days/Wk (IRF) Estimated Hrs Per Day: 1.5 hours per day Patient and/or Family Agrees t: Yes Safety Risks/Education Patient Education: Gait Training, Correct Positioning, Reviewed Don/Doff Brace , Safety Issues Teaching Recipient: Patient Teaching Methods: Discussion Response to Teaching: Verbalize Understanding Time/GCodes Time In: 1245 Time Out: 1330 Total Billed Treatment Time: 45 Total Billed Treatment 1, GT x2 (30m) & EX (15m) TATA FRITZ PTA Jun 18, 2017 15:00
[2017-06-18 18:25] VITALS: BP 124/65
[2017-06-18] MEDS: ATORVASTATIN 20 MG (LIPITOR) TABLET PO SCH (20:42)
[2017-06-18] MEDS: traZODone 50 MG (DESYREL) TAB PO SCH (20:42)
[2017-06-19] MEDS: HYDROcodone/APAP 10 MG/325 MG (LORTAB) TAB PO PRN ×3 (04:18→18:23)
[2017-06-19 05:17] VITALS: BP 115/68
[2017-06-19] MEDS: BACLOFEN 10 MG (LIORESAL) TAB PO PRN ×2 (05:31→13:27)
[2017-06-19] MEDS: DOCUSATE SODIUM 100 MG (COLACE) CAP PO SCH ×2 (08:05→21:28)
[2017-06-19] MEDS: POLYETHYLENE GLYCOL 17 GM (MIRALAX) PACK PO SCH ×2 (08:05→21:27)
[2017-06-19] MEDS: GABAPENTIN 300 MG (NEURONTIN) CAP PO SCH ×3 (08:05→21:27)
[2017-06-19] MEDS: amLODIPine 10 MG (NORVASC) TAB PO SCH (08:05)
[2017-06-19] MEDS: PANTOPRAZOLE 40 MG (PROTONIX) TAB PO SCH (08:05)
[2017-06-19] MEDS: LEVOTHYROXINE 125 MCG (LEVOTHROID) TABLET PO SCH (08:05)
[2017-06-19] MEDS: HYDROCHLOROTHIAZIDE 25 MG (HCTZ) TAB PO SCH (08:06)
[2017-06-19] MEDS: SENNOSIDES 8.6 MG (SENOKOT) TAB PO SCH ×2 (08:06→21:28)
[2017-06-19] MEDS: CARVEDILOL 6.25 MG (COREG) TAB PO SCH ×2 (08:06→21:34)
[2017-06-19] MEDS: lisINopril 10 MG (PRINIVIL) TAB PO SCH (08:06)
[2017-06-19] MEDS: LOSARTAN 50 MG (COZAAR) TAB PO SCH (08:06)
[2017-06-19] MEDS: FLUTICASONE NASAL SPRAY (FLONASE) 16 GM BTL NS SCH ×2 (08:08→21:35)
--- NOTE | 2017-06-19 09:17 | PM & R (SOAP) Progress Note ---
Subjective Time Seen by Provider: 09:00 Subjective/Events-last exam Patient was seen in her room this AM Patient has progressed well Patient Modified Independent for transfers Using Lortab generic prn for pain,ischarge remains set for Thursday06-22-17 to home with niece and [facility] Objective Exam Last Set of Vital Signs Vital Signs Date Time Temp Pulse Resp B/P (MAP) Pulse Ox O2 Delivery O2 Flow Rate FiO2 06/19/17 08:57 Room Air 06/19/17 05:17 98.5 80 19 115/68 (84) 93 Capillary Refill : I&O Intake and Output 06/19/17 00:00 Intake Total 1960 ml Balance 1960 ml Intake Oral 1960 ml # Voids 9 General: Alert, Oriented X3, Cooperative, No Acute Distress HEENT: Atraumatic, PERRLA, EOMI, Mucous Memb Moist/[place] Neck: Supple, No JVD Lungs: Clear to Auscultation Heart: Normal S1 Abdomen: Normal Bowel Sounds, Soft, No Tenderness Extremities: No Edema Skin: Other (incision covered with dressing rash on face resolving) Neuro: Other (4/5 strength) Psych/Mental Status: Mental Status NL, Mood NL Assessment/Plan Assessment Lumbar spondylosis with radiculopathy improved s/p decompressive surgery OSH Postop anemia associated with hypotension improved s/p transfusion PRBCS OSH KORTNEY on cpap HTN controlled with meds Chronic constipation on meds HLP on meds Hypothyroidism on replacement Tape allergy Plan Continue PT/OT Team Conference held 06-17-17 -See report for full functional update and POC and ELOS F/U with Hospitalist prn Discharge remains set for next week Thursday to home with [facility] and ivania Singer [place] Patient will have f/u with DR Hardy PCP and DR Clements OrthospSEEMA Suarez MD Jun 19, 2017 09:17
[2017-06-19] MEDS ORDERED: HYDR-3820 PO (09:25)
--- NOTE | 2017-06-19 11:01 | Physical Therapy Daily Note ---
PT Daily Note-Current Subjective Pt agrees to rx. States she really wants to be up ad naye. Feels so improved . Pain Numeric Pain Scale: 2 Location: Medial Location Body Site: Back Pain Description: Ache Mental Status Patient Orientation: Normal For Age Attachments: Other-See Comments (kurt fernandezyeimi back brace indep) Transfers Functional [place] Measure 0=Not Assessed/NA 4=Minimal Assistance 1=Total Assistance 5=Supervision or Setup 2=Maximal Assistance 6=Modified [place] 3=Moderate Assistance 7=Complete IndependenceIRFPAI Quality Coding Scale 6 Independent with activity with or without an assistive device 5 Patient requires set up or clean up by helper. Patient completes activity by themselves 4 Supervision or touching assist (CGA). [place] provide cues , steadying assist 3 The helper provides less than half the effort to complete the activity 2 The helper provides more than half the effort to complete the activity 1 Dependent. The helper does all the effort to complete an activity 7 Patient refused to complete or attempt activity 9 The patient did not perform the activity before the current illness or injury 88 Not attempted due to Medical conditions or safety concerns Transfers (B, C, W/C) (FIM): 6 Scootin Rollin Supine to/from Sit: 6 Sit to/from Stand: 6 Bed to/from Chair: 6 Car Transfer (QC): 6 Weight Bearing Right Lower Extremity: Right Full Weight Bearing Left Lower Extremity: Left Full Weight Bearing Gait Training Does the Patient Walk?: Yes Gait (FIM): 6 Distance (FIM): 3=150 ft (200x3) Gait Level of Assist: 6 Gait Persons Needed: 0 Gait Assistive Device: FWW fig 8s, side steps, retro all Mod I Stair Training Stair Training: Handrails/: 2 handrails Stairs (FIM): 6 #of Steps: 12 Stairs: Pattern: Reciprocal Level of Assist: 6 Exercises Supine Ex: Ankle pumps, Quad Set, Rolling, Glut sets, Short Arc Quads, Scooting , Straight leg raise, Hip abd/add Supine Reps: 12 Assessment Current Status: Excellent Progress advanced to up ad naye status PT Short Term Goals Short Term Goals Time Frame: Jun 22, 2017 Gait (FIM): 5 Gait Distance Comment: 200' Gait Level of Assist: 5 Gait Assistive Device: FWW PT Fpc Goals Energy Control Officer Goals PT Fpc Goals Time Frame: Jul 06, 2017 Transfers (B,C,W/C) (FIM): 6 Sit to Lying (QC): 6 Lying-Sitting on Side/Bed(QC): 6 Sit to Stand (QC): 6 Rollin Roll Left to Right (QC): 6 Chair/Ctg-wv-Bahur Xfer(QC): 6 Car Transfer (QC): 6 Gait (FIM): 6 Distance: 300' Walk 10 feet (QC): 6 Walk 10ft-Uneven Surface(QC): 6 Walk 50ft with 2 Turns (QC): 6 Walk 150 ft (QC): 6 Gait Assistive Device: FWW Stairs (FIM): 5 # of Steps: 12 1 Step (curb) (QC): 4 4 Steps (QC): 4 12 Steps (QC): 4 Stairs Level Of Assist: 5 PT Plan Treatment/Plan Treatment Plan: Continue Plan of Care Treatment Plan: Bed Mobility, Education, Functional Activity Sri, Functional Strength, Group Therapy, Gait, Safety, Therapeutic Exercise, Transfers Treatment Duration: Jul 06, 2017 Frequency: At least 5 of 7 days/Wk (IRF) Estimated Hrs Per Day: 1.5 hours per day Patient and/or Family Agrees t: Yes Safety Risks/Education Patient Education: Gait Training, Transfer Techniques, Steps, Correct Positioning, Reviewed Don/Doff Brace, Safety Issues Teaching Recipient: Patient Teaching Methods: Demonstration, Discussion Response to Teaching: Verbalize Understanding, Return Demonstration, Reinforcement Needed Time/GCodes Time In: 1000 Time Out: 1100 Total Billed Treatment Time: 60 Total Billed Treatment 1,FA35m,GT25m G Codes Necessary: DHARA Martinez SWITCHBOARD OPERATOR HELPER Jun 19, 2017 11:01
--- NOTE | 2017-06-19 11:46 | Occupational Ther Daily Note ---
OT Current Status-Daily Note Subjective Pt sitting in chair, agrees to treatment. Pt reports 4/10 back pain. Mental Status/Objective Functional [place] Measure 0=Not Assessed/NA 4=Minimal Assistance 1=Total Assistance 5=Supervision or Setup 2=Maximal Assistance 6=Modified [place] 3=Moderate Assistance 7=Complete [place] ADL-Treatment Pt sitting in chair, states she feels stiff. Requests to ambulate before completing ADLs. Pt sit to stand with modified independence. Pt performed gait around rehab unit with FWW, no LOB noted. Sponge bath completed seated in chair. Pt doffed clothing with modified independence. Uses dressing stick to doff lower body clothing. Pt able to wash/dry all areas after set up. Uses long handled sponge to wash lower legs and feet. Don shirt after set up. Pt able to don brace with set up. Pt used dressing stick to don underwear and pants after set up. Stood with good balance for pant hike. Pt donned socks with set up using sock aid. Grooming tasks completed standing at sink with modified independence. Education provided regarding home/kitchen safety. Pt states understanding of education and has no questions at this time. Functional [place] Measure 0=Not Assessed/NA 4=Minimal Assistance 1=Total Assistance 5=Supervision or Setup 2=Maximal Assistance 6=Modified [place] 3=Moderate Assistance 7=Complete IndependenceIRFPAI Quality Coding Scale 6 Independent with activity with or without an assistive device 5 Patient requires set up or clean up by helper. Patient completes activity by themselves 4 Supervision or touching assist (CGA). [place] provide cues , steadying assist 3 The helper provides less than half the effort to complete the activity 2 The helper provides more than half the effort to complete the activity 1 Dependent. The helper does all the effort to complete an activity 7 Patient refused to complete or attempt activity 9 The patient did not perform the activity before the current illness or injury 88 Not attempted due to Medical conditions or safety concerns Grooming (FIM): 6 Oral Hygiene (QC): 6 Bathing (FIM): 5 Shower/Bathe Self (QC): 5 Upper Body (FIM): 5 Upper Body Dressing (QC): 5 Lower Body Dressing (FIM): 5 Lower Body Dressing (QC): 5 On/Off Footwear (QC): 5 Other Treatment Gait to therapy gym with FWW. Pt completed arm bike activity x15 minutes to promote increased activity tolerance and strength. Pt completed task with steady pace and no rest breaks. Pt completed fine motor task with nuts and bolts without difficulty. Graded clothespins task with bilateral hands to increase pinch strength. Pt returned to room, transferred to chair with modified independence. Pt sitting in chair with needs met after session. OT Short Term Goals Short Term Goals Time Frame: Jun 22, 2017 Lower Body Dressing(FIM): 5 Additional Short Term Goals: 1-Demonstrate ADL Tasks, 2-Verbalize Understanding , 3-ImproveStrength/Sri 1=Demonstrate adherence to instructed precautions during ADL tasks. 2=Patient will verbalize/demonstrate understanding of assistive devices/ modifications for ADL. 3=Patient will improve strength/tolerance for activity to enable patient to perform ADL's. OT Longterm Goals 3Rd Grade Teacher Goals Time Frame: Jul 03, 2017 Eating (FIM): 7 Eating (QC): 6 Groomin Oral Hygiene (QC): 6 Bathing(FIM): 6 Shower/Bathe Self (QC): 6 Upper Body Dressing(FIM): 6 Upper Body Dressing (QC): 6 Lower Body Dressing(FIM): 6 Lower Body Dressing (QC): 6 On/Off Footwear (QC): 6 Toileting(FIM): 6 Toileting Hygiene (QC): 6 Toilet/Commode Transfer(FIM): 6 Toilet/Commode Transfer (QC): 6 Additional Goals: 1-Demonstrate ADL Tasks, 2-Verbalize Understanding, 3- ImproveStrength/Sri 1=Demonstrate adherence to instructed precautions during ADL tasks. 2=Patient will verbalize/demonstrate understanding of assistive devices/ modifications for ADL. 3=Patient will improve strength/tolerance for activity to enable patient to perform ADL's. OT Education/Plan Problem List/Assessment Pt would benefit from skilled OT to increase her independence in basic self care to allow her to safely return to her home to live alone and to decrease caregiver burden. Discharge Recommendations Plan/Recommendations: Continue POC Treatment Plan/Plan of Care Patient would benefit from OT for education, treatment and training to promote independence in ADL's, mobility, safety and/or upper extremity function for ADL' s. Plan of Care: ADL Retraining, Functional Mobility, Group Exercise/Act as Ind ( education, exercise, act tolerance, socialization, activity tolerance), UE Funct Exercise/Act, UE Neuromus Re-Ed/Coord Treatment Duration: Jul 03, 2017 Frequency: At least 5 of 7 days/Wk (IRF) Estimated Hrs Per Day: 1.5 hours per day Agreement: Yes Rehab Potential: Good Time/GCodes Start Time: 08:00 Stop Time: 09:30 Total Time Billed (hr/min): 90 Billed Treatment Time 1 visit, ADLx4(60minutes), EXx2(30minutes) MARTHA BECKHAM OT Jun 19, 2017 11:46
--- NOTE | 2017-06-19 14:13 | Physical Therapy Daily Note ---
PT Daily Note-Current Subjective Agrees to rx. Ready for a nap after Rx. Doing well being up ad naye Pain Numeric Pain Scale: 0-No Pain Mental Status Patient Orientation: Normal For Age Transfers Functional [place] Measure 0=Not Assessed/NA 4=Minimal Assistance 1=Total Assistance 5=Supervision or Setup 2=Maximal Assistance 6=Modified [place] 3=Moderate Assistance 7=Complete IndependenceIRFPAI Quality Coding Scale 6 Independent with activity with or without an assistive device 5 Patient requires set up or clean up by helper. Patient completes activity by themselves 4 Supervision or touching assist (CGA). [place] provide cues , steadying assist 3 The helper provides less than half the effort to complete the activity 2 The helper provides more than half the effort to complete the activity 1 Dependent. The helper does all the effort to complete an activity 7 Patient refused to complete or attempt activity 9 The patient did not perform the activity before the current illness or injury 88 Not attempted due to Medical conditions or safety concerns all TRFs Mod I Weight Bearing Right Lower Extremity: Right Full Weight Bearing Left Lower Extremity: Left Full Weight Bearing Gait Training Gait Assistive Device: FWW all gait up ad naye no issues. walked to from gym indep Exercises Standing: Hip Abduction, Hamstring curls, Heel/toe raises, Marching, Mini squats, Sit to Stand Standing Reps: 15 NuStep Minutes: 8 NuStep Workload: 3 Assessment Current Status: Excellent Progress, Good Progress PT Short Term Goals Short Term Goals Time Frame: Jun 22, 2017 Gait (FIM): 5 Gait Distance Comment: 200' Gait Level of Assist: 5 Gait Assistive Device: FWW PT Medical Assisting Instructor Goals Care Home Goals PT Care Home Goals Time Frame: Jul 06, 2017 Transfers (B,C,W/C) (FIM): 6 Sit to Lying (QC): 6 Lying-Sitting on Side/Bed(QC): 6 Sit to Stand (QC): 6 Rollin Roll Left to Right (QC): 6 Chair/Kcn-dl-Wtedy Xfer(QC): 6 Car Transfer (QC): 6 Gait (FIM): 6 Distance: 300' Walk 10 feet (QC): 6 Walk 10ft-Uneven Surface(QC): 6 Walk 50ft with 2 Turns (QC): 6 Walk 150 ft (QC): 6 Gait Assistive Device: FWW Stairs (FIM): 5 # of Steps: 12 1 Step (curb) (QC): 4 4 Steps (QC): 4 12 Steps (QC): 4 Stairs Level Of Assist: 5 PT Plan Treatment/Plan Treatment Plan: Continue Plan of Care Treatment Plan: Bed Mobility, Education, Functional Activity Sri, Functional Strength, Group Therapy, Gait, Safety, Therapeutic Exercise, Transfers Treatment Duration: Jul 06, 2017 Frequency: At least 5 of 7 days/Wk (IRF) Estimated Hrs Per Day: 1.5 hours per day Patient and/or Family Agrees t: Yes Safety Risks/Education Patient Education: Gait Training, Transfer Techniques, Correct Positioning, Safety Issues Teaching Recipient: Patient Teaching Methods: Demonstration, Discussion Response to Teaching: Verbalize Understanding, Return Demonstration, Reinforcement Needed Time/GCodes Time In: 1330 Time Out: 1400 Total Billed Treatment Time: 30 Total Billed Treatment 1,EX30m G Codes Necessary: DHARA Martinez SWEEPER DRIVER Jun 19, 2017 14:13
[2017-06-19 17:47] VITALS: BP 123/72
[2017-06-19] MEDS: ATORVASTATIN 20 MG (LIPITOR) TABLET PO SCH (21:28)
[2017-06-19] MEDS: traZODone 50 MG (DESYREL) TAB PO SCH (21:28)
[2017-06-20 05:33] VITALS: BP 112/69
[2017-06-20] MEDS: HYDROcodone/APAP 10 MG/325 MG (LORTAB) TAB PO PRN ×3 (07:37→18:38)
[2017-06-20] MEDS: BACLOFEN 10 MG (LIORESAL) TAB PO PRN (07:37)
[2017-06-20] MEDS: PANTOPRAZOLE 40 MG (PROTONIX) TAB PO SCH (08:33)
[2017-06-20] MEDS: GABAPENTIN 300 MG (NEURONTIN) CAP PO SCH ×3 (08:33→20:07)
[2017-06-20] MEDS: amLODIPine 10 MG (NORVASC) TAB PO SCH (08:33)
[2017-06-20] MEDS: LEVOTHYROXINE 125 MCG (LEVOTHROID) TABLET PO SCH (08:33)
[2017-06-20] MEDS: POLYETHYLENE GLYCOL 17 GM (MIRALAX) PACK PO SCH ×2 (08:33→20:07)
[2017-06-20] MEDS: lisINopril 10 MG (PRINIVIL) TAB PO SCH (08:34)
[2017-06-20] MEDS: FLUTICASONE NASAL SPRAY (FLONASE) 16 GM BTL NS SCH ×2 (08:34→20:22)
[2017-06-20] MEDS: LOSARTAN 50 MG (COZAAR) TAB PO SCH (08:34)
[2017-06-20] MEDS: SENNOSIDES 8.6 MG (SENOKOT) TAB PO SCH ×2 (08:34→20:07)
[2017-06-20] MEDS: HYDROCHLOROTHIAZIDE 25 MG (HCTZ) TAB PO SCH (08:34)
[2017-06-20] MEDS: CARVEDILOL 6.25 MG (COREG) TAB PO SCH ×2 (08:34→20:07)
[2017-06-20] MEDS: DOCUSATE SODIUM 100 MG (COLACE) CAP PO SCH ×2 (08:34→20:07)
--- NOTE | 2017-06-20 08:51 | Physical Therapy Daily Note ---
PT Daily Note-Current Subjective Pt. states she did not sleep well and has some tightness in bilateral calves. States she slept in the chair until midnight. Pain Numeric Pain Scale: 5-Moderate Pain Location: Medial Location Body Site: Back Pain Description: Ache Mental Status Patient Orientation: Normal For Age Attachments: Other-See Comments (ack brace) Transfers Functional [place] Measure 0=Not Assessed/NA 4=Minimal Assistance 1=Total Assistance 5=Supervision or Setup 2=Maximal Assistance 6=Modified [place] 3=Moderate Assistance 7=Complete IndependenceIRFPAI Quality Coding Scale 6 Independent with activity with or without an assistive device 5 Patient requires set up or clean up by helper. Patient completes activity by themselves 4 Supervision or touching assist (CGA). [place] provide cues , steadying assist 3 The helper provides less than half the effort to complete the activity 2 The helper provides more than half the effort to complete the activity 1 Dependent. The helper does all the effort to complete an activity 7 Patient refused to complete or attempt activity 9 The patient did not perform the activity before the current illness or injury 88 Not attempted due to Medical conditions or safety concerns Transfers (B, C, W/C) (FIM): 6 Scootin Rollin Supine to/from Sit: 6 Sit to/from Stand: 6 Bed to/from Chair: 6 Weight Bearing Right Lower Extremity: Right Full Weight Bearing Left Lower Extremity: Left Full Weight Bearing Gait Training Does the Patient Walk?: Yes Gait (FIM): 6 Distance (FIM): 3=150 ft (x3) Gait Level of Assist: 6 Gait Persons Needed: 0 Gait Assistive Device: FWW up ad naye observed safe and with good habits, donns brace effectively Stair Training Stair Training: Handrails/: 2 handrails Stairs (FIM): 5 #of Steps: 8 Stairs: Pattern: Step to Level of Assist: 5 Exercises Supine Ex: Ankle pumps (HC stretches 3x20s bilat) NuStep Minutes: 10 NuStep Workload: 4 Treatments standing and supine HC stretch as pt. c/o tight calves. pt. taught to do self stretch with gait belt Assessment Current Status: Good Progress PT Short Term Goals Short Term Goals Time Frame: Jun 22, 2017 Gait (FIM): 5 Gait Distance Comment: 200' Gait Level of Assist: 5 Gait Assistive Device: FWW PT Care Home Goals Care Home Goals PT County Agent Goals Time Frame: Jul 06, 2017 Transfers (B,C,W/C) (FIM): 6 Sit to Lying (QC): 6 Lying-Sitting on Side/Bed(QC): 6 Sit to Stand (QC): 6 Rollin Roll Left to Right (QC): 6 Chair/Yzv-mo-Joepm Xfer(QC): 6 Car Transfer (QC): 6 Gait (FIM): 6 Distance: 300' Walk 10 feet (QC): 6 Walk 10ft-Uneven Surface(QC): 6 Walk 50ft with 2 Turns (QC): 6 Walk 150 ft (QC): 6 Gait Assistive Device: FWW Stairs (FIM): 5 # of Steps: 12 1 Step (curb) (QC): 4 4 Steps (QC): 4 12 Steps (QC): 4 Stairs Level Of Assist: 5 PT Plan Treatment/Plan Treatment Plan: Continue Plan of Care Treatment Plan: Bed Mobility, Education, Functional Activity Sri, Functional Strength, Group Therapy, Gait, Safety, Therapeutic Exercise, Transfers Treatment Duration: Jul 06, 2017 Frequency: At least 5 of 7 days/Wk (IRF) Estimated Hrs Per Day: 1.5 hours per day Patient and/or Family Agrees t: Yes Safety Risks/Education Patient Education: Steps, Issued Written HEP Teaching Recipient: Patient Teaching Methods: Demonstration, Discussion Response to Teaching: Verbalize Understanding, Return Demonstration, Reinforcement Needed Time/GCodes Time In: 730 Time Out: 800 Total Billed Treatment Time: 30 Total Billed Treatment 1,FA10,EX20 G Codes Necessary: DHARA Martinez INSIDE OUTSIDE SALES REPRESENTATIVE Jun 20, 2017 08:51
--- NOTE | 2017-06-20 11:25 | Occupational Ther Daily Note ---
OT Current Status-Daily Note Subjective No pain reported. Appearance Pt. is up in chair. Pt. states that she is not allowed to shower, but that she will spongebathe. Mental Status/Objective Patient Orientation: Person, Place, Time, Situation Functional [place] Measure 0=Not Assessed/NA 4=Minimal Assistance 1=Total Assistance 5=Supervision or Setup 2=Maximal Assistance 6=Modified [place] 3=Moderate Assistance 7=Complete [place] ADL-Treatment Functional [place] Measure 0=Not Assessed/NA 4=Minimal Assistance 1=Total Assistance 5=Supervision or Setup 2=Maximal Assistance 6=Modified [place] 3=Moderate Assistance 7=Complete IndependenceIRFPAI Quality Coding Scale 6 Independent with activity with or without an assistive device 5 Patient requires set up or clean up by helper. Patient completes activity by themselves 4 Supervision or touching assist (CGA). [place] provide cues , steadying assist 3 The helper provides less than half the effort to complete the activity 2 The helper provides more than half the effort to complete the activity 1 Dependent. The helper does all the effort to complete an activity 7 Patient refused to complete or attempt activity 9 The patient did not perform the activity before the current illness or injury 88 Not attempted due to Medical conditions or safety concerns Eating (FIM): 6 Eating (QC): 6 Grooming (FIM): 6 (Pt. is mod I to ambulate with walker to sink to brush hair and teeth.) Oral Hygiene (QC): 6 Bathing (FIM): 6 Shower/Bathe Self (QC): 6 Upper Body (FIM): 6 Upper Body Dressing (QC): 6 Lower Body Dressing (FIM): 6 Lower Body Dressing (QC): 6 On/Off Footwear (QC): 6 Toileting (FIM): 6 Toileting Hygiene (QC): 6 Transfers (B, C, W/C) (FIM): 6 Toilet/Commode Transfer (FIM): 6 Toilet Transfer (QC): 6 Education OT Patient Education: Modified ADL techniques, Progress toward Goal/Update tx plan, Purpose of tx/functional activities, Reviewed precautions, Rehab process Teaching Recipient: Patient Teaching Methods: Demonstration, Discussion Response to Teaching: Verbalize Understanding, Return Demonstration OT Short Term Goals Short Term Goals Time Frame: Jun 22, 2017 Lower Body Dressing(FIM): 5 Additional Short Term Goals: 1-Demonstrate ADL Tasks, 2-Verbalize Understanding , 3-ImproveStrength/Sri 1=Demonstrate adherence to instructed precautions during ADL tasks. 2=Patient will verbalize/demonstrate understanding of assistive devices/ modifications for ADL. 3=Patient will improve strength/tolerance for activity to enable patient to perform ADL's. OT Editor Managing Newspaper Goals Editor Managing Newspaper Goals Time Frame: Jul 03, 2017 Eating (FIM): 7 Eating (QC): 6 Groomin Oral Hygiene (QC): 6 Bathing(FIM): 6 Shower/Bathe Self (QC): 6 Upper Body Dressing(FIM): 6 Upper Body Dressing (QC): 6 Lower Body Dressing(FIM): 6 Lower Body Dressing (QC): 6 On/Off Footwear (QC): 6 Toileting(FIM): 6 Toileting Hygiene (QC): 6 Toilet/Commode Transfer(FIM): 6 Toilet/Commode Transfer (QC): 6 Additional Goals: 1-Demonstrate ADL Tasks, 2-Verbalize Understanding, 3- ImproveStrength/Sri 1=Demonstrate adherence to instructed precautions during ADL tasks. 2=Patient will verbalize/demonstrate understanding of assistive devices/ modifications for ADL. 3=Patient will improve strength/tolerance for activity to enable patient to perform ADL's. OT Education/Plan Problem List/Assessment Pt would benefit from skilled OT to increase her independence in basic self care to allow her to safely return to her home to live alone and to decrease caregiver burden. Discharge Recommendations Plan/Recommendations: Continue POC Therapy D/C Recommendations: Home w/ Family Support, Occupational Therapy Home Care Equpiment Recommendations-D/C: Hip Kit Target Placement Pt. plans to discharge home on Thursday with family support. Treatment Plan/Plan of Care Treatment,Training & Education: Yes Patient would benefit from OT for education, treatment and training to promote independence in ADL's, mobility, safety and/or upper extremity function for ADL' s. Plan of Care: ADL Retraining, Functional Mobility, Group Exercise/Act as Ind ( education, exercise, act tolerance, socialization, activity tolerance), UE Funct Exercise/Act, UE Neuromus Re-Ed/Coord Treatment Duration: Jul 03, 2017 Frequency: At least 5 of 7 days/Wk (IRF) Estimated Hrs Per Day: 1.5 hours per day Agreement: Yes Rehab Potential: Good Time/GCodes Start Time: 10:10 Stop Time: 11:10 Total Time Billed (hr/min): 60 Billed Treatment Time 1, ADL x 4 GEETA TRINIDAD OT Jun 20, 2017 11:25
--- NOTE | 2017-06-20 11:52 | Physical Therapy Daily Note ---
PT Daily Note-Current Mental Status Patient Orientation: Normal For Age Transfers Functional [place] Measure 0=Not Assessed/NA 4=Minimal Assistance 1=Total Assistance 5=Supervision or Setup 2=Maximal Assistance 6=Modified [place] 3=Moderate Assistance 7=Complete IndependenceIRFPAI Quality Coding Scale 6 Independent with activity with or without an assistive device 5 Patient requires set up or clean up by helper. Patient completes activity by themselves 4 Supervision or touching assist (CGA). [place] provide cues , steadying assist 3 The helper provides less than half the effort to complete the activity 2 The helper provides more than half the effort to complete the activity 1 Dependent. The helper does all the effort to complete an activity 7 Patient refused to complete or attempt activity 9 The patient did not perform the activity before the current illness or injury 88 Not attempted due to Medical conditions or safety concerns Transfers (B, C, W/C) (FIM): 6 Scootin Rollin Roll Left to Right (QC): 6 Supine to/from Sit: 6 Sit to/from Stand: 6 Sit to Lying (QC): 6 Sit to Stand (QC): 6 Chair/Cej-pe-Slvlr Xfer(QC): 6 Bed to/from Chair: 6 Car Transfer (QC): 6 Weight Bearing Right Lower Extremity: Right Full Weight Bearing Left Lower Extremity: Left Full Weight Bearing Gait Training Does the Patient Walk?: Yes Gait (FIM): 6 Distance (FIM): 3=150 ft (150x3) Walk 10 feet (QC): 6 Walk 50 ft with 2 Turns(QC): 6 Walk 150 ft (QC): 6 Walking 10ft/uneven surface-QC: 6 Gait Level of Assist: 6 Gait Persons Needed: 0 Gait Assistive Device: FWW Wheelchair Training Does the Pt Use a Wheelchair?: No Stair Training Stair Training: Handrails/: 2 handrails Stairs (FIM): 6 #of Steps: 12 1 Step (curb) (QC): 6 4 Steps (QC): 6 12 Steps (QC): 6 Stairs: Pattern: Step to Level of Assist: 6 Balance Picking up an Object (QC): 0 (unsafe/contraindicated at this time) Assessment Current Status: Good Progress meets goals PT Short Term Goals Short Term Goals Time Frame: Jun 22, 2017 Gait (FIM): 5 Gait Distance Comment: 200' Gait Level of Assist: 5 Gait Assistive Device: FWW PT Half-Way Goals Half-Way Goals PT Hot Metal Mixer Operator Goals Time Frame: Jul 06, 2017 Transfers (B,C,W/C) (FIM): 6 Sit to Lying (QC): 6 Lying-Sitting on Side/Bed(QC): 6 Sit to Stand (QC): 6 Rollin Roll Left to Right (QC): 6 Chair/Ijv-kr-Xgtfb Xfer(QC): 6 Car Transfer (QC): 6 Gait (FIM): 6 Distance: 300' Walk 10 feet (QC): 6 Walk 10ft-Uneven Surface(QC): 6 Walk 50ft with 2 Turns (QC): 6 Walk 150 ft (QC): 6 Gait Assistive Device: FWW Stairs (FIM): 5 # of Steps: 12 1 Step (curb) (QC): 4 4 Steps (QC): 4 12 Steps (QC): 4 Stairs Level Of Assist: 5 PT Plan Treatment/Plan Treatment Plan: Continue Plan of Care Treatment Plan: Bed Mobility, Education, Functional Activity Sri, Functional Strength, Group Therapy, Gait, Safety, Therapeutic Exercise, Transfers Treatment Duration: Jul 06, 2017 Frequency: At least 5 of 7 days/Wk (IRF) Estimated Hrs Per Day: 1.5 hours per day Patient and/or Family Agrees t: Yes Safety Risks/Education Patient Education: Gait Training, Transfer Techniques, Steps Teaching Recipient: Patient Teaching Methods: Demonstration, Discussion Response to Teaching: Verbalize Understanding, Return Demonstration, Reinforcement Needed Time/GCodes Time In: 1150 Time Out: 1200 Total Billed Treatment Time: 10 Total Billed Treatment 1,FA10m G Codes Necessary: DHARA Martinez MORTGAGE CLERK Jun 20, 2017 11:52
[2017-06-20 18:14] VITALS: BP 111/66
[2017-06-20] MEDS: traZODone 50 MG (DESYREL) TAB PO SCH (20:07)
[2017-06-20] MEDS: ATORVASTATIN 20 MG (LIPITOR) TABLET PO SCH (20:07)
[2017-06-21 05:13] VITALS: BP 101/64
[2017-06-21] MEDS: BACLOFEN 10 MG (LIORESAL) TAB PO PRN ×2 (08:01→17:51)
[2017-06-21] MEDS: amLODIPine 10 MG (NORVASC) TAB PO SCH (08:01)
[2017-06-21] MEDS: CARVEDILOL 6.25 MG (COREG) TAB PO SCH ×2 (08:01→20:35)
[2017-06-21] MEDS: SENNOSIDES 8.6 MG (SENOKOT) TAB PO SCH ×2 (08:01→20:36)
[2017-06-21] MEDS: DOCUSATE SODIUM 100 MG (COLACE) CAP PO SCH ×2 (08:01→20:37)
[2017-06-21] MEDS: PANTOPRAZOLE 40 MG (PROTONIX) TAB PO SCH (08:01)
[2017-06-21] MEDS: lisINopril 10 MG (PRINIVIL) TAB PO SCH (08:01)
[2017-06-21] MEDS: LOSARTAN 50 MG (COZAAR) TAB PO SCH (08:01)
[2017-06-21] MEDS: FLUTICASONE NASAL SPRAY (FLONASE) 16 GM BTL NS SCH ×2 (08:01→20:34)
[2017-06-21] MEDS: LEVOTHYROXINE 125 MCG (LEVOTHROID) TABLET PO SCH (08:01)
[2017-06-21] MEDS: HYDROCHLOROTHIAZIDE 25 MG (HCTZ) TAB PO SCH (08:01)
[2017-06-21] MEDS: GABAPENTIN 300 MG (NEURONTIN) CAP PO SCH ×3 (08:01→20:35)
[2017-06-21] MEDS: HYDROcodone/APAP 10 MG/325 MG (LORTAB) TAB PO PRN ×3 (08:02→17:51)
[2017-06-21] MEDS: POLYETHYLENE GLYCOL 17 GM (MIRALAX) PACK PO SCH ×2 (08:02→20:36)
[2017-06-21 18:22] VITALS: BP 125/64
[2017-06-21] MEDS: ATORVASTATIN 20 MG (LIPITOR) TABLET PO SCH (20:35)
[2017-06-21] MEDS: traZODone 50 MG (DESYREL) TAB PO SCH (20:35)
[2017-06-22 05:06] VITALS: BP 109/65
[2017-06-22] MEDS: HYDROcodone/APAP 10 MG/325 MG (LORTAB) TAB PO PRN ×2 (06:45→12:44)
[2017-06-22] MEDS: BACLOFEN 10 MG (LIORESAL) TAB PO PRN (06:47)
[2017-06-22] MEDS: FLUTICASONE NASAL SPRAY (FLONASE) 16 GM BTL NS SCH (08:48)
[2017-06-22] MEDS: DOCUSATE SODIUM 100 MG (COLACE) CAP PO SCH (08:49)
[2017-06-22] MEDS: POLYETHYLENE GLYCOL 17 GM (MIRALAX) PACK PO SCH (08:49)
[2017-06-22] MEDS: LEVOTHYROXINE 125 MCG (LEVOTHROID) TABLET PO SCH (08:49)
[2017-06-22] MEDS: GABAPENTIN 300 MG (NEURONTIN) CAP PO SCH ×2 (08:49→12:35)
[2017-06-22] MEDS: PANTOPRAZOLE 40 MG (PROTONIX) TAB PO SCH (08:50)
[2017-06-22] MEDS: SENNOSIDES 8.6 MG (SENOKOT) TAB PO SCH (08:50)
[2017-06-22] MEDS: amLODIPine 10 MG (NORVASC) TAB PO SCH (08:52)
[2017-06-22] MEDS: HYDROCHLOROTHIAZIDE 25 MG (HCTZ) TAB PO SCH (08:52)
[2017-06-22] MEDS: CARVEDILOL 6.25 MG (COREG) TAB PO SCH (08:52)
[2017-06-22] MEDS: LOSARTAN 50 MG (COZAAR) TAB PO SCH (08:52)
[2017-06-22] MEDS: lisINopril 10 MG (PRINIVIL) TAB PO SCH (08:52)
--- NOTE | 2017-06-22 12:03 | Physical Therapy Progress Note ---
Therapy Progress Note visit with patient regarding planned discharge this date. Pt asks about HHC and what to expect when she gets home. Reviewed back precautions with her and educated her on safety in her home. Reviewed use of back brace and walker at this time for safety. Pt verbalized understanding of all review and indicated her questions were answered sufficiently. Pt to discharge this date with HHC to follow. visit [id number] 15 FA KRYSTIAN GREWAL PT Jun 22, 2017 12:03
--- NOTE | 2017-06-22 14:21 | Therapy Team Discharge Summary ---
Therapy Discharge Summary Discharge Recommendations Date of Discharge Therapy D/C Recommendations: Home w/ Family Support, Occupational Therapy Home Care Physical Therapy This patient has been seen on ARU for skilled PT intervention post L3-4 laminectomy. Upon admit, she required min assist with gait and transfers and was able to go up/down 4 steps with min asssit. Treatment has consisted of functional strength and mobility as well as gait, transfer, stair and safety training. She has made excellent progress and has achieved all goals set at evaluation. Pt is to discharge home alone with support from family and friends. Recommend [facility] PT to follow as well. DC PT Occupational Therapy Decreased Activ Tolerance, Decreased UE Strength, Dependent Transfers, Impaired Self-Care Skills PT Chcf Goals Chcf Goals PT Shoeshiner Goals Time Frame: Jul 06, 2017 Transfers (B,C,W/C) (FIM): 6 (met) Roll Left to Right (QC): 6 (met) Sit to Lying (QC): 6 (met) Lying-Sitting on Side/Bed(QC): 6 (met) Sit to Stand (QC): 6 (met) Chair/Yxc-ig-Vaeqz Xfer(QC): 6 (met) Car Transfer (QC): 6 (met) Gait (FIM): 6 (met) Distance: 300' Walk 10 feet (QC): 6 (met) Walk 10ft-Uneven Surface(QC): 6 (met) Walk 50ft with 2 Turns (QC): 6 (met) Walk 150 ft (QC): 6 (met) Gait Assistive Device: FWW Stairs (FIM): 5 (exceeded; scored a 6) # of Steps: 12 1 Step (curb) (QC): 4 4 Steps (QC): 4 12 Steps (QC): 4 Stairs Level Of Assist: 5 Picking up an Object (QC): 88 (bending over to continuous pickling line pickler is contraindicated with her recent lumbar surgery.) All LTG's have been achieved. OT Shoeshiner Goals Chcf Goals Time Frame: Jul 03, 2017 Eating (FIM): 7 Eating (QC): 6 Oral Hygiene (QC): 6 Grooming(FIM): 6 Bathing(FIM): 6 Shower/Bathe Self (QC): 6 Upper Body Dressing(FIM): 6 Upper Body Dressing (QC): 6 Lower Body Dressing(FIM): 6 Lower Body Dressing (QC): 6 On/Off Footwear (QC): 6 Toileting(FIM): 6 Toileting Hygiene (QC): 6 Toilet/Commode Transfer(FIM): 6 Toilet/Commode Transfer (QC): 6 Additional Goals: 1-Demonstrate ADL Tasks, 2-Verbalize Understanding, 3- ImproveStrength/Sri 1=Demonstrate adherence to instructed precautions during ADL tasks. 2=Patient will verbalize/demonstrate understanding of assistive devices/ modifications for ADL. 3=Patient will improve strength/tolerance for activity to enable patient to perform ADL's. KRYSTIAN GREWAL PT Jun 22, 2017 14:21
--- NOTE | 2017-06-22 14:54 | PM & R (SOAP) Progress Note ---
Subjective Time Seen by Provider: 14:45 Subjective/Events-last exam Patient was seen in her room this Afternoon Discussed case with RN Patient with low grade postop fever with ciugh but chest is clear Incision covered with clean dry dressing and site nontender to tiuch No dysuria frequency or urgency.Patient Modified Independent in room Review of Systems Pulmonary: Cough Objective Exam Last Set of Vital Signs Vital Signs Date Time Temp Pulse Resp B/P (MAP) Pulse Ox O2 Delivery O2 Flow Rate FiO2 06/22/17 09:00 Room Air 06/22/17 05:06 99.8 84 18 109/65 (80) 93 Capillary Refill : I&O Intake and Output 06/22/17 00:00 Intake Total 1553 ml Balance 1553 ml Intake Oral 1553 ml # Voids 6 # Bowel Movements 2 General: Alert, Oriented X3, Cooperative, No Acute Distress HEENT: Atraumatic, PERRLA, EOMI, Mucous Memb Moist/[place]: Supple, No JVD Lungs: Clear to Auscultation Heart: Normal S1 Abdomen: Normal Bowel Sounds, Soft, No Tenderness Extremities: No Edema Skin: Other (incision covered with dressing rash on face resolving) Neuro: Other (4/5 strength) Psych/Mental Status: Mental Status NL, Mood NL Assessment/Plan Assessment Lumbar spondylosis with radiculopathy improved s/p decompressive surgery OSH Postop anemia associated with hypotension improved s/p transfusion PRBCS OSH KORTNEY on cpap HTN controlled with meds Chronic constipation on meds HLP on meds Hypothyroidism on replacement Tape allergy low garde postop fever Plan Discharge remains set for today to home with [facility] and ivania Singer [place] Patient will have f/u with DR Hardy PCP and DR [facility] Check CBC prior to discharge-See orders SEEMA REA MD Jun 22, 2017 14:54
[2017-06-22 15:20] LABS: BASOPHILS % (AUTO) 0 % (0-10); EOSINOPHILS # (AUTO) 0.4 10^3/uL (0.0-0.3); EOSINOPHILS % (AUTO) 5 % (0-10); HEMATOCRIT 29 % (35-52); HEMOGLOBIN 9.9 G/DL (11.5-16.0); LYMPHOCYTES # (AUTO) 1.8 X 10^3 (1.0-4.0); LYMPHOCYTES % (AUTO) 20 % (12-44); MEAN CORPUSCULAR HEMOGLOBIN 30 PG (25-34); MEAN CORPUSCULAR HGB CONC 34 G/DL (32-36); MEAN CORPUSCULAR VOLUME 89 FL (80-99); MEAN PLATELET VOLUME 9.9 FL (7.4-10.4); MONOCYTES # (AUTO) 0.8 X 10^3 (0.0-1.0); MONOCYTES % (AUTO) 9 % (0-12); NEUTROPHILS # (AUTO) 5.7 X 10^3 (1.8-7.8); NEUTROPHILS % (AUTO) 65 % (42-75); PLATELET COUNT 306 10^3/uL (130-400); RED BLOOD COUNT 3.28 10^6/uL (4.35-5.85); RED CELL DISTRIBUTION WIDTH 13.6 % (10.0-14.5); WHITE BLOOD COUNT 8.7 10^3/uL (4.3-11.0)
[2017-06-22 16:15] VITALS: BP 112/60
--- NOTE | 2017-06-23 08:19 | Therapy Team Discharge Summary ---
Therapy Discharge Summary Discharge Recommendations Date of Discharge Jun 22, 2017 at 16:00 Therapy D/C Recommendations: Home w/ Family Support, Occupational Therapy Home Care Occupational Therapy Pt. has been seen by occupational therapy to increase overall strength and independence with daily tasks. Pt. has met all goals. Pt. is able to bathe and dress self with Mod I using adaptive equipment as necessary. She is able to don and doff her back brace independently. Pt. is able to ambulate with walker with no difficulty. Pt. has discharged home with family support, and recommended home health occupational therapy as needed for safety. Pt. would benefit from having a hip kit. Decreased Activ Tolerance, Decreased UE Strength, Dependent Transfers, Impaired Self-Care Skills PT Longterm Goals Director Of Events Goals PT Director Of Events Goals Time Frame: Jul 06, 2017 Transfers (B,C,W/C) (FIM): 6 (met) Roll Left to Right (QC): 6 (met) Sit to Lying (QC): 6 (met) Lying-Sitting on Side/Bed(QC): 6 (met) Sit to Stand (QC): 6 (met) Chair/Zhk-fy-Fitqp Xfer(QC): 6 (met) Car Transfer (QC): 6 (met) Gait (FIM): 6 (met) Distance: 300' Walk 10 feet (QC): 6 (met) Walk 10ft-Uneven Surface(QC): 6 (met) Walk 50ft with 2 Turns (QC): 6 (met) Walk 150 ft (QC): 6 (met) Gait Assistive Device: FWW Stairs (FIM): 5 (exceeded; scored a 6) # of Steps: 12 1 Step (curb) (QC): 4 4 Steps (QC): 4 12 Steps (QC): 4 Stairs Level Of Assist: 5 Picking up an Object (QC): 88 (bending over to fruit or nut picker is contraindicated with her recent lumbar surgery.) OT Director Of Events Goals Director Of Events Goals Time Frame: Jul 03, 2017 Eating (FIM): 7 Eating (QC): 6 Oral Hygiene (QC): 6 Grooming(FIM): 6 Bathing(FIM): 6 Shower/Bathe Self (QC): 6 Upper Body Dressing(FIM): 6 Upper Body Dressing (QC): 6 Lower Body Dressing(FIM): 6 Lower Body Dressing (QC): 6 On/Off Footwear (QC): 6 Toileting(FIM): 6 Toileting Hygiene (QC): 6 Toilet/Commode Transfer(FIM): 6 Toilet/Commode Transfer (QC): 6 Additional Goals: 1-Demonstrate ADL Tasks, 2-Verbalize Understanding, 3- ImproveStrength/Sri 1=Demonstrate adherence to instructed precautions during ADL tasks. 2=Patient will verbalize/demonstrate understanding of assistive devices/ modifications for ADL. 3=Patient will improve strength/tolerance for activity to enable patient to perform ADL's. GEETA TRINIDAD OT Jun 23, 2017 08:19
== END 2017-06-22 16:00 | disposition home health service (06) | DRG 560 ==
PROVIDERS: ADMIT Physical Medicine & Rehabilitation; ATTEND Physical Medicine & Rehabilitation
DX: Z47.89 Encounter for other orthopedic aftercare (principal); D62 Acute posthemorrhagic anemia; G47.33 Obstructive sleep apnea (adult) (pediatric); E78.5 Hyperlipidemia, unspecified; I10 Essential (primary) hypertension; K21.9 Gastro-esophageal reflux disease without esophagitis; E03.9 Hypothyroidism, unspecified; M19.90 Unspecified osteoarthritis, unspecified site; K59.09 Other constipation; L23.1 Allergic contact dermatitis due to adhesives; R50.82 Postprocedural fever
CPT/HCPCS: 36415; 85025

== ENCOUNTER → 2017-08-26 | Outpatient (CLI) | payer MEDICARE, OTHER ==
[~2017-08-26] MED LIST changes: +ACET325T49 PO; +AMLO10TA2 PO; +ATOR20TA66 PO; +BACL10TA PO; +BENZ1LOZ42 MM; +BISA10SU6 RC; +BISA5TAB8 PO; +CALC500T3 PO; +CARV6.252 PO; +DOCU100C37 PO; +FLUT16SP22 NSEACH; +HYDR-3820 PO; +HYDR25TA4 PO; +LISI10TA2 PO; +LOSA50TA36 PO; +MAGN400O7 PO; +NAPR-915 PO; +PANT40TA3 PO; +POLY17PO6 PO; +SENN-140 PO; +TRAZ-28 PO
--- NOTE | 2017-08-26 13:45 | Diagnostic Imaging Report ---
INDICATION: Nephrolithiasis, followup. EXAMINATION: KUB at 12:40 PM. FINDINGS: The patient has had previous laminectomies and discectomy with fusion at L4-5. There is a tiny opacification projecting over the inferior pole of the left kidney. The right kidney is largely obscured by stool in the colon. IMPRESSION: Suspected tiny calculus in the inferior pole of the left kidney. Dictated by: Dictated on workstation # [id number]
== END ==
LOC: RAD 12:10
PROVIDERS: ATTEND Urology
DX: N20.0 Calculus of kidney (principal)
CPT/HCPCS: 74018

== ENCOUNTER → 2017-11-30 | Outpatient (CLI) | payer MEDICARE, OTHER | LOC: CARD 09:30 | PROVIDERS: ATTEND Internal Medicine Cardiovascular Disease | DX: R07.89 Other chest pain (principal); R06.09 Other forms of dyspnea; I11.9 Hypertensive heart disease without heart failure; E78.5 Hyperlipidemia, unspecified; I08.1 Rheumatic disorders of both mitral and tricuspid valves | CPT/HCPCS: 93306 ==

== ENCOUNTER → 2018-04-01 | Outpatient (CLI) | payer MEDICARE, OTHER ==
[~2018-04-01] MED LIST changes: -AMLO10TA2 PO; +AMLO10TA6 PO; -LOSA50TA36 PO; +LOSA50TA7 PO; +TRAZ-189 PO; -TRAZ-28 PO
--- NOTE | 2018-04-01 14:05 | Diagnostic Imaging Report ---
INDICATION: Low back pain. Lumbar spine. FINDINGS: AP and lateral views of the lumbar spine show postop changes from laminectomy of L4 with posterior discectomy and fusion of L4-L5. The hardware appears to be intact and in good position. There is some disc space narrowing at L3-L4 more prominently posteriorly. There is some disc space narrowing posteriorly at L2-L3. The L1-L2 and T12-L1 disc spaces are both mildly narrowed. There are osteophytes forming anteriorly at multiple levels of the lumbar spine. IMPRESSION: Spondylosis deformans. Multilevel degenerative disc changes. Postop changes from discectomy and dorsal fusion of L4-L5. No compression fracture or acute abnormality seen. Dictated by: Dictated on workstation # [id number]
== END ==
LOC: RAD 11:55
PROVIDERS: ATTEND Nurse Practitioner Family
DX: M47.816 Spondylosis without myelopathy or radiculopathy, lumbar region (principal); M51.36 Other intervertebral disc degeneration, lumbar region; Z98.1 Arthrodesis status
CPT/HCPCS: 72100

== ENCOUNTER 2018-09-22 13:39 | Inpatient (IN) | payer MEDICARE, OTHER ==
[~2018-09-22] VITALS: Ht 170.2 cm; Wt 91.2 kg
[~2018-09-22 13:39] MED LIST changes: -AMLO10TA6 PO; +AMLO10TA7 PO; +AMLO5TAB9 PO; +ASPI-983 PO; +ATOR40TA70 PO; +CALC-654 PO; +CETI10TA20 PO; +CHOL5000 PO; +FLUT16SP22 NS; -FLUT16SP22 NSEACH; +LOSA100T57 PO; +LOSA50TA63 PO; -LOSA50TA7 PO; +MAGN400T39 PO; +MULT-351 PO; +OMG1KC PO; +POTA10TA36 PO; -SENN-140 PO; +SENN-141 PO; +TRAM1TAB7 PO; +UBID100C44 PO; +VITA1CAP PO
[2018-09-22] MEDS ORDERED: LOPERAMIDE 2 MG (IMODIUM) CAP PO PRN (14:30)
[2018-09-22] MEDS ORDERED: ACETAMINOPHEN 500 MG TAB (TYLENOL) PO PRN (14:30)
[2018-09-22] MEDS ORDERED: ALPRAZolam 0.25 MG (XANAX) TAB PO PRN (14:30)
[2018-09-22] MEDS ORDERED: CALCIUM CARBONATE 500 MG (TUMS) TAB.CHEW PO PRN (14:30)
[2018-09-22] MEDS ORDERED: diphenhydrAMINE 25 MG TAB (BENADRYL) PO PRN (14:30)
[2018-09-22] MEDS ORDERED: ONDANSETRON 4 MG (ZOFRAN) ORAL DISSOLVE TAB PO PRN (14:30)
[2018-09-22] MEDS ORDERED: MELATONIN 3 MG TABLET PO PRN (14:30)
[2018-09-22] MEDS ORDERED: DOCUSATE SODIUM 100 MG (COLACE) CAP PO PRN (14:30)
--- NOTE | 2018-09-22 17:30 | NUR ---
Marin Best admitted to room 227-1, with an admitting diagnosis of , on 09/22/18 from via wheelchair, accompanied by friend. MARIN BEST introduced to surroundings, call light, bed controls, phone, TV, temperature control, lights, meal times, smoking policy, visitor policy, side rail policy, bathrooms and showers. Patient Rights given to patient in the handbook.NASIRMARIN Levi verbalizes understanding that [facility] is not responsible for the loss or damage to any personal effects or valuables that are kept in the patients possession during their hospitalization. The following Patient Care Plans were discussed with the patient: Discharge Planning, Impaired Mobility, Spinal Fusion. MARIN BEST verbalizes understanding of Interdisciplinary Patient Education. Patient and/or family were informed about the Rapid Response Team and its purpose. Patient received Patient Rights Booklet, which includes Privacy Act Statement and Data Collection Information Summary.
[2018-09-22] MEDS ORDERED: NON-FORMULARY MEDICATION 1 EA EA (Tramadol HCl/Acetaminophen (Tramadol-Acetaminophn 37.5-3 PO PRN (17:45)
--- OUTSIDE RECORDS SUMMARY | 2018-09-22 17:50 | XMS REPORT | CCD ---
Author Author Sandi Camp Organization [facility] Address [address] [place] [address] Phone Care Team Providers Care Switchbox Assembler Name Role Phone PP Unavailable CCM Unavailable Summary Purpose Interface Exchange Insurance Providers Payer name Policy type / Coverage type Covered republican ID Effective Begin Date Effective End Date WPS Medicare Part B Medicare Part B [id number] Unknown [employer] Medicare Part B [id number] Unknown Family history Brother sara Diagnosis Age At Onset Prostate Cancer Unknown Mother Diagnosis Age At Onset Hypertension Unknown Hyperlipidemia Unknown Arthritis Unknown copd Unknown Osteoporosis Unknown Asthma Unknown Skin cancer Unknown Diabetes Unknown Stroke Unknown Heart Attack Unknown Father Diagnosis Age At Onset Diabetes Unknown Arthritis Unknown copd Unknown Brother felicia Diagnosis Age At Onset Prostate Cancer Unknown Sister Diagnosis Age At Onset Hypertension Unknown Arthritis Unknown Asthma Unknown Diabetes Unknown Hyperlipidemia Unknown Social History Social History Element Codes Description Effective Dates Marital status Unknown 11/10/[address]: 304457966 Never smoker 11/10/2014 Alcohol history Unknown occasionally drinks alcohol 11/10/2014 Allergies, Adverse Reactions, Alerts Substance Reaction Codes Entered Date Inactivated Date Status SULFA(SULFONAMIDE ANTIBIOTICS) Unknown 11/10/2014 No Inactive Date Active TERBINAFINE Unknown 11/10/2014 No Inactive Date Active Past Medical History Illness Codes Condition Status Onset Date Resolved Date Atrophy of thyroid (acquired) ICD-9: 244.8 ICD-10: E03.4 Active 03/31/2016 Unknown Essential (primary) hypertension ICD-9: 401.1 ICD-10: I10 Active 07/29/2017 Unknown Low back pain ICD-9: 724.2 ICD-10: M54.5 Active 05/19/2017 Unknown Encounter for follow-up examination after completed treatment for conditions other than malignant neoplasm ICD-9: V67.59 ICD-10: Z09 Active 06/10/2018 Unknown 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 Active 04/07/2017 Unknown Pain in left leg ICD-9 : 729.5 ICD-10: M79.605 Active 05/10/2018 Unknown Pain in right leg ICD- 9: 729.5 ICD-10: M79.604 Active 05/10/2018 Unknown Encounter for immunization ICD-9: V04.81 ICD-10: Z23 Active 04/15/2018 Unknown Trochanteric bursitis, right hip ICD-9: 726.5 ICD-10: M70.61 Active 04/01/2018 Unknown Diverticulitis of large intestine without perforation or abscess without bleeding ICD-9: 562.11 ICD-10: K57.32 Active 02/04/2018 Unknown Gastro-esophageal reflux disease without esophagitis ICD-9: 530.81 ICD-10: K21.9 Active 12/02/2015 Unknown Other fatigue ICD-9: 780.79 ICD-10: R53.83 Active 11/18/2017 Unknown Encounter for general adult medical examination with abnormal findings ICD-9: V70.0 ICD-10: Z00.01 Active 12/08/2017 Unknown Essential (primary) hypertension ICD-9: 401.9 ICD-10: I10 Active 11/09/2014 Unknown Slow transit constipation ICD-9: 564.00 ICD-10: K59.01 Active 11/09/2014 Unknown Hypothyroidism, unspecified ICD-9: 244.9 ICD-10: E03.9 Active 11/09/2014 Unknown Mixed hyperlipidemia ICD-9: 272.2 ICD-10: E78.2 Active 03/31/2016 Unknown Cough ICD-9: 786.2 ICD-10: R05 Active 05/19/2017 Unknown Encounter for immunization ICD-9: V03.9 ICD-10: Z23 Active 04/07/2017 Unknown Slow transit constipation ICD-9: 564.01 ICD-10: K59.01 Active 04/07/2017 Unknown Myalgia ICD-9: 729.1 ICD-10: M79.1 Active 01/09/2017 Unknown Pain in right wrist ICD-9: 719.43 ICD-10: M25.531 Active 02/23/2017 Unknown Bitten or stung by nonvenomous insect and other nonvenomous arthropods, initial encounter ICD-9: 919.4 ICD-10: W57.XXXA Active 01/26/2017 Unknown Pain in left ankle and joints of left foot ICD-9: 719.47 ICD-10: M25.572 Active 01/26/2017 Unknown Pain in right ankle and joints of right foot ICD-9: 719.47 ICD-10: M25.571 Active 01/26/2017 Unknown Pain in right hip ICD- 9: 719.45 ICD-10: M25.551 Active 01/26/2017 Unknown Vitamin D deficiency, unspecified ICD-9: 268.9 ICD-10: E55.9 Active 01/26/2017 Unknown 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 ICD-9: 214.1 ICD-10: D17.1 Active 10/07/2016 Unknown Pain in right knee ICD -9: 719.46 ICD-10: M25.561 Active 11/21/2015 Unknown Acute frontal sinusitis, unspecified ICD-9: 461.1 ICD-10: J01.10 Active 08/28/2015 Unknown Arthritis Unknown Active 11/10/2014 Unknown Hypertension Unknown Active 11/10/2014 Unknown Hypothryroidism Unknown Active 11/10/2014 Unknown Hypothyroid Unknown Active 11/10/2014 Unknown sleep apnea Unknown Active 11/10/2014 Unknown Constipation ICD-9: 564.00 Active 11/09/2014 Unknown ESSENTIAL HYPERTENSION ICD-9: 401.9 Active 11/09/2014 Unknown Hypothyroidism ICD-9: 244.9 Active 11/09/2014 Unknown Lipoma of abdominal wall ICD-9: 214.1 Active 11/09/2014 Unknown Problems Condition Codes Effective Dates Condition Status Atrophy of thyroid (acquired) ICD-9: 244.8 ICD-10: E03.4 03/31/2016 Active Essential (primary) hypertension ICD-9: 401.1 ICD-10: I10 07/29/2017 Active Low back pain ICD-9: 724.2 ICD-10: M54.5 05/19/2017 Active Encounter for follow-up examination after completed treatment for conditions other than malignant neoplasm ICD-9: V67.59 ICD-10: Z09 06/10/2018 Active 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 04/07/2017 Active Pain in left leg ICD-9 : 729.5 ICD-10: M79.605 05/10/2018 Active Pain in right leg ICD- 9: 729.5 ICD-10: M79.604 05/10/2018 Active Encounter for immunization ICD-9: V04.81 ICD-10: Z23 04/15/2018 Active Trochanteric bursitis, right hip ICD-9: 726.5 ICD-10: M70.61 04/01/2018 Active Diverticulitis of large intestine without perforation or abscess without bleeding ICD-9: 562.11 ICD-10: K57.32 02/04/2018 Active Gastro-esophageal reflux disease without esophagitis ICD-9: 530.81 ICD-10: K21.9 12/02/2015 Active Other fatigue ICD-9: 780.79 ICD-10: R53.83 11/18/2017 Active Encounter for general adult medical examination with abnormal findings ICD-9: V70.0 ICD-10: Z00.01 12/08/2017 Active Essential (primary) hypertension ICD-9: 401.9 ICD-10: I10 11/09/2014 Active Slow transit constipation ICD-9: 564.00 ICD-10: K59.01 11/09/2014 Active Hypothyroidism, unspecified ICD-9: 244.9 ICD-10: E03.9 11/09/2014 Active Mixed hyperlipidemia ICD-9: 272.2 ICD-10: E78.2 03/31/2016 Active Cough ICD-9: 786.2 ICD-10: R05 05/19/2017 Active Encounter for immunization ICD-9: V03.9 ICD-10: Z23 04/07/2017 Active Slow transit constipation ICD-9: 564.01 ICD-10: K59.01 04/07/2017 Active Myalgia ICD-9: 729.1 ICD-10: M79.1 01/09/2017 Active Pain in right wrist ICD-9: 719.43 ICD-10: M25.531 02/23/2017 Active Bitten or stung by nonvenomous insect and other nonvenomous arthropods, initial encounter ICD-9: 919.4 ICD-10: W57.XXXA 01/26/2017 Active Pain in left ankle and joints of left foot ICD-9: 719.47 ICD-10: M25.572 01/26/2017 Active Pain in right ankle and joints of right foot ICD-9: 719.47 ICD-10: M25.571 01/26/2017 Active Pain in right hip ICD- 9: 719.45 ICD-10: M25.551 01/26/2017 Active Vitamin D deficiency, unspecified ICD-9: 268.9 ICD-10: E55.9 01/26/2017 Active 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 ICD-9: 214.1 ICD-10: D17.1 10/07/2016 Active Pain in right knee ICD -9: 719.46 ICD-10: M25.561 11/21/2015 Active Acute frontal sinusitis, unspecified ICD-9: 461.1 ICD-10: J01.10 08/28/2015 Active Arthritis Unknown 11/10/2014 Active Hypertension Unknown 11/10/2014 Active Hypothryroidism Unknown 11/10/2014 Active Hypothyroid Unknown 11/10/2014 Active sleep apnea Unknown 11/10/2014 Active Constipation ICD-9: 564.00 11/09/2014 Active ESSENTIAL HYPERTENSION ICD-9: 401.9 11/09/2014 Active Hypothyroidism ICD-9: 244.9 11/09/2014 Active Lipoma of abdominal wall ICD-9: 214.1 11/09/2014 Active Medications Medication Codes Instructions Start Date Stop Date Status Fill Instructions baclofen 10 mg tablet RxNorm: 190944 1 Tablet(s) PO TID 201807/20/2019 Active levothyroxine 125 mcg tablet RxNorm: 828891 TAKE 1 TABLET EVERY DAY 06/02/2018 11/28/2018 Active gabapentin 300 mg capsule RxNorm: 593264 1 Capsule(s) PO QID 05/04/2019 Active update on her script trazodone 50 mg tablet RxNorm: 383619 1.5 Tablet(s) PO QHS 07/03/2019 Active pantoprazole 40 mg tablet,delayed release RxNorm: 120755 1 Tablet(s) PO daily 04/16/2018 04/10/2019 Active prednisone 20 mg tablet RxNorm: 031767 2 Tablet(s) PO daily 04/05/2018 Inactive losartan 100 mg tablet RxNorm: 301626 1 Tablet(s) PO daily 04/29/2019 Active Cipro 500 mg tablet RxNorm: 933785 1 Tablet(s) PO BID x 3 days to equal a total of 10 days 02/04/2018 02/06/2018 Inactive Flagyl 500 mg tablet RxNorm: 644274 1 Tablet(s) PO TID x 3 days to equal a total of 10 days 02/04/2018 02/06/2018 Inactive Carafate 1 gram tablet RxNorm: 883013 1 Tablet(s) PO QID 201703/05/2018 Inactive gabapentin 300 mg capsule RxNorm: 725463 1 Capsule(s) PO TID 05/09/2018 Inactive update on her script levothyroxine 125 mcg tablet RxNorm: 670501 TAKE 1 TABLET EVERY DAY 12/29/2017 06/01/2018 Inactive gabapentin 300 mg capsule RxNorm: 276987 1 Capsule(s) PO BID 01/11/2018 Inactive Norvasc 5 mg tablet RxNorm: 650591 1 Tablet(s) PO daily 201701/19/2019 Active losartan 100 mg tablet RxNorm: 749069 1 Tablet(s) PO daily 02/03/2018 Inactive levothyroxine 125 mcg tablet RxNorm: 436502 Tablet(s) TAKE 1 TABLET EVERY DAY 08/13/2017 12/28/2017 Inactive Zithromax Z-Nirav 250 mg tablet RxNorm: 334424 1 Tablet(s) PO UD 07/02/2017 11/17/2017 Inactive zpack as directed trazodone 50 mg tablet RxNorm: 795776 1 Tablet(s) PO QHS 201605/09/2018 Inactive losartan 50 mg tablet RxNorm: 240672 1 Tablet(s) PO daily 201610/26/2017 Inactive pantoprazole 40 mg tablet,delayed release RxNorm: 225002 1 Tablet(s) PO daily 04/07/2017 04/01/2018 Inactive trazodone 50 mg tablet RxNorm: 005053 1/2 Tablet(s) PO QHS 05/25/2017 Inactive prednisone 20 mg tablet RxNorm: 330416 2 Tablet(s) PO daily 04/201702/27/2017 Inactive gabapentin 300 mg capsule RxNorm: 371562 1 Capsule(s) PO TID 11/17/2017 Inactive baclofen 10 mg tablet RxNorm: 263647 1 Tablet(s) PO TID 201602/06/2018 Inactive Vitamin D3 5,000 unit tablet RxNorm: 770477 1 Tablet(s) PO daily 02/11/2017 No Stop Date Active levothyroxine 125 mcg tablet RxNorm: 411915 TAKE 1 TABLET EVERY DAY 02/10/2017 05/10/2017 Inactive Kenalog 40 mg/mL suspension for injection RxNorm: 6391265 1 Milliliter(s) Inj 01/26/2017 01/26/2017 Inactive doxycycline hyclate 100 mg capsule RxNorm: 0298599 1 Capsule(s) PO BID 01/26/2017 02/04/2017 Inactive Norvasc 10 mg tablet RxNorm: 610500 1 Tablet(s) PO daily 201610/26/2017 Inactive Lipitor 20 mg tablet RxNorm: 744874 1 Tablet(s) PO QPM 201501/05/2017 Inactive sent on 12/25 also levothyroxine 125 mcg tablet RxNorm: 676285 1 Tablet(s) PO daily 12/28/2015 02/09/2017 Inactive 2nd escribe for this medication sent 12/25 Ziac 10 mg-6.25 mg tablet RxNorm: 452834 Tablet(s) TAKE ONE TABLET BY MOUTH DAILY 12/28/2015 10/06/2016 Inactive sent on 12/25 also levothyroxine 125 mcg tablet RxNorm: 718341 1 Tablet(s) PO daily 12/26/2015 12/27/2015 Inactive Lipitor 20 mg tablet RxNorm: 370739 1 Tablet(s) PO QPM 201512/27/2015 Inactive Ziac 10 mg-6.25 mg tablet RxNorm: 993233 Tablet(s) TAKE ONE TABLET BY MOUTH DAILY 12/26/2015 12/27/2015 Inactive Ziac 10 mg-6.25 mg tablet RxNorm: 232225 TAKE ONE TABLET BY MOUTH DAILY 11/27/2015 12/25/2015 Inactive hydrocodone 5 mg-acetaminophen 325 mg tablet RxNorm: 678661 1 Tablet(s) PO Q4-6H 11/22/2015 03/31/2016 Inactive prednisone 20 mg tablet RxNorm: 410681 3 Tablet(s) PO daily 09/02/2015 Inactive azithromycin 250 mg tablet RxNorm: 153476 2 Tablet(s) PO on day #1, then 1pill daily x 4 days 08/29/2015 12/02/2015 Inactive Lipitor 20 mg tablet RxNorm: 354528 1 Tablet(s) PO QPM 201412/25/2015 Inactive levothyroxine 125 mcg tablet RxNorm: 804683 1 Tablet(s) PO daily 04/25/2015 12/25/2015 Inactive Ziac 10 mg-6.25 mg tablet RxNorm: 992917 1 Tablet(s) PO daily 03/12/2015 10/07/2015 Inactive Fish Oil oral RxNorm: 6920559 oral No Start Date Active Aspirin Low Dose 81 mg tablet,delayed release RxNorm: 353077 1 Tablet(s) PO daily No Start Date Active tramadol 37.5 mg-acetaminophen 325 mg tablet RxNorm: 867115 Tablet(s) PO PRN No Start Date Active carvedilol 6.25 mg tablet RxNorm: 298863 1 Tablet(s) PO BID No Start Date Active Calcium RxNorm: 1 PO daily No Start Date Active Glucosamine Chondroitin Maximum Strength oral RxNorm: 4845 oral No Start Date Active Probiotic oral RxNorm : 6205 oral No Start Date Active multivitamin tablet RxNorm: 1 Tablet(s) PO daily No Start Date Active Vitamin B-6 oral RxNorm: 659592 oral No Start Date Active carvedilol 6.25 mg tablet RxNorm: 858301 1 Tablet(s) PO BID No Start Date Active Vitamin C oral RxNorm : 1151 oral No Start Date Active Vitamin B-12 oral RxNorm: 98178 oral No Start Date Active cetirizine 10 mg tablet RxNorm: 4777855 1 Tablet(s) PO daily No Start Date Active naproxen 500 mg tablet RxNorm: 335433 1 Tablet(s) PO BID No Start Date Active potassium chloride ER 10 mEq tablet,extended release RxNorm: 378034 1 Tablet(s) PO daily Dr [place] No Start Date Active Lipitor 20 mg tablet RxNorm: 328841 1 Tablet(s) PO daily No Start Date 06/11/2015 Inactive baclofen 10 mg tablet RxNorm: 075775 1 Tablet(s) PO TID No Start Date 02/11/2017 Inactive gabapentin 600 mg tablet RxNorm: 417744 1 Tablet(s) PO TID No Start Date 01/22/2017 Inactive Zithromax Z-Nirav 250 mg tablet RxNorm: 329477 1 Tablet(s) PO UD No Start Date 07/01/2017 Inactive zpack as directed levothyroxine 125 mcg capsule RxNorm: 431109 1 Capsule(s) PO daily No Start Date 04/24/2015 Inactive Ziac 10 mg-6.25 mg tablet RxNorm: 531320 1 Tablet(s) PO daily No Start Date 03/11/2015 Inactive gabapentin 300 mg capsule RxNorm: 039470 1 Capsule(s) PO TID No Start Date 02/11/2017 Inactive lisinopril 10 mg tablet RxNorm: 282755 1 Tablet(s) PO daily No Start Date 05/18/2017 Inactive Protonix 40 mg granules delayed-release packet RxNorm: 313452 1 PO daily No Start Date 04/06/2017 Inactive cyclobenzaprine 10 mg tablet RxNorm: 304003 1 Tablet(s) PO daily No Start Date 12/07/2017 Inactive hydrochlorothiazide 25 mg tablet RxNorm: 777092 1 Tablet(s) PO daily No Start Date 12/07/2017 Inactive Norvasc 10 mg tablet RxNorm: 868080 2 Tablet(s) PO daily No Start Date 10/06/2016 Inactive Vitamin D3 oral RxNorm : oral No Start Date 02/10/2017 Inactive Medication Administered Medication Codes Instructions Start Date Status Kenalog 40 mg/mL suspension for injection RxNorm: 3561773 1Milliliter 01/26/2017 No longer Active Immunizations Vaccine Codes Date Status Influenza CVX: 141 04/15/2018 completed Influenza CVX: 141 04/07/2017 completed Influenza CVX: 141 03/29/2015 completed Influenza CVX: 141 03/15/2014 completed Assessments Condition Codes Effective Dates Atrophy of thyroid (acquired) ICD-10: E03.4 ICD-9: 244.8 09/08/2018 Essential (primary) hypertension ICD-10: I10 ICD-9: 401.1 09/08/2018 Low back pain ICD-10: M54.5 ICD-9: 724.2 09/08/2018 Encounter for follow-up examination after completed treatment for conditions other than malignant neoplasm ICD-10: Z09 ICD-9: V67.59 06/10/2018 Pain in left leg ICD-10: M79.605 ICD-9: 729.5 05/10/2018 Insomnia due to medical condition ICD-10: G47.01 ICD-9: 327.01 05/10/2018 Pain in right leg ICD-10: M79.604 ICD-9: 729.5 05/10/2018 Encounter for immunization ICD-10: Z23 ICD-9: V04.81 04/15/2018 Trochanteric bursitis, right hip ICD-10: M70.61 ICD-9: 726.5 04/01/2018 Gastro-esophageal reflux disease without esophagitis ICD-10 : K21.9 ICD-9: 530.81 02/04/2018 Diverticulitis of large intestine without perforation or abscess without bleeding ICD-10: K57.32 ICD-9: 562.11 02/04/2018 Other fatigue ICD-10: R53.83 ICD-9: 780.79 01/12/2018 Encounter for general adult medical examination with abnormal findings ICD-10: Z00.01 ICD-9: V70.0 12/08/2017 Essential (primary) hypertension ICD-10: I10 ICD-9: 401.9 06/30/2017 Slow transit constipation ICD-10: K59.01 ICD-9: 564.00 06/30/2017 Mixed hyperlipidemia ICD-10: E78.2 ICD-9: 272.2 05/29/2017 Hypothyroidism, unspecified ICD-10: E03.9 ICD-9: 244.9 05/29/2017 Cough ICD-10: R05 ICD-9: 786.2 05/19/2017 Slow transit constipation ICD-10: K59.01 ICD-9: 564.01 04/07/2017 Encounter for immunization ICD-10: Z23 ICD-9: V03.9 04/07/2017 Myalgia ICD-10: M79.1 ICD-9: 729.1 02/23/2017 Pain in right wrist ICD-10: M25.531 ICD-9: 719.43 02/23/2017 Pain in right ankle and joints of right foot ICD-10: M25.571 ICD-9: 719.47 01/26/2017 Bitten or stung by nonvenomous insect and other nonvenomous arthropods, initial encounter ICD-10: W57.XXXA ICD-9: 919.4 01/26/2017 Vitamin D deficiency, unspecified ICD-10: E55.9 ICD-9: 268.9 01/26/2017 Pain in right hip ICD-10: M25.551 ICD-9: 719.45 01/26/2017 Pain in left ankle and joints of left foot ICD-10: M25.572 ICD-9: 719.47 01/26/2017 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 ICD-10: D17.1 ICD-9: 214.1 10/07/2016 Pain in right knee ICD-10: M25.561 ICD-9: 719.46 11/22/2015 Acute frontal sinusitis, unspecified ICD-10: J01.10 ICD-9: 461.1 08/29/2015 ESSENTIAL HYPERTENSION ICD-9: 401.9 02/28 Chronic idiopathic constipation ICD-9: 564.00 02/28/2015 Lipoma of abdominal wall ICD-9: 214.1 Hypothyroidism ICD-9: 244.9 11/10/2014 Reason For Visit Reason For Visit Effective Dates Notes hip pain 09/08/2018 Hospital Follow Up 06/10/2018 hip pain 05/10/2018 vaccination against influenza 04/15/2018 back pain 04/01/2018 Hospital Follow Up 02/04/2018 hypertension 01/12/2018 Annual Medicare Wellness Exam 12/08/2017 hypertension 11/18/2017 low back pain 10/27/2017 low back pain 07/29/2017 Hospital Follow Up 06/30/2017 medication follow up 05/19/2017 trazodone wrist pain 04/07/2017 wrist pain 02/23/2017 low back and leg pain 01/26/2017 low back and leg pain 01/09/2017 hypertension 10/07/2016 hypertension 04/01/2016 hypertension 12/03/2015 knee pain 11/22/2015 hypertension 08/29/2015 new lesion 11/10/2014 Results Observation Observation Code Item Item Code Result Date Cbc With Differential Ord2 WBC 4.32 K/ul 05/29/2017 Cbc With Differential Ord2 RBC 4.29 M/ul 05/29/2017 Cbc With Differential Ord2 HGB 12.8 g/dl 05/29/2017 Cbc With Differential Ord2 HCT 39.8 % 05/29/2017 Cbc With Differential Ord2 Neut% 60.4 % 05/29/2017 Cbc With Differential Ord2 MCV 92.8 fl 05/29/2017 Cbc With Differential Ord2 Lymph% 27.1 % 05/29/2017 Cbc With Differential Ord2 MCH 29.8 pg 05/29/2017 Cbc With Differential Ord2 [place]% 7.9 % 05/29/2017 Cbc With Differential Ord2 MCHC 32.2 pg 05/29/2017 Cbc With Differential Ord2 Eos% 4.4 % 05/29/2017 Cbc With Differential Ord2 PLT 200 K/ul 05/29/2017 Cbc With Differential Ord2 Baso% 0.2 % 05/29/2017 Cbc With Differential Ord2 RDW 14.0 % 05/29/2017 Cbc With Differential Ord2 Neut ABS# 2.61 K/ul 05/29/2017 Cbc With Differential Ord2 Lymph ABS# 1.17 K/ul 05/29/2017 Cbc With Differential Ord2 [place] ABS# 0.3 K/ul 05/29/2017 Cbc With Differential Ord2 Eos ABS# 0.2 K/ul 05/29/2017 Cbc With Differential Ord2 Baso ABS# 0.0 K/ul 05/29/2017 Tsh Ord6 hTSH II 1.70 uIU/mL 05/29/2017 Free T4 Sky870 FREE T4 0.84 ng/dL 05/29/2017 Lipid Ord30 CHOL 261 mg/dL 05/29/2017 Lipid Ord30 HDL 51.0 mg/dl 05/29/2017 Lipid Ord30 TRIG 165 mg/dL 05/29/2017 Lipid Ord30 LDL 177 mg/dL 05/29/2017 Lipid Ord30 C/HDL 5.1 Ratio 05/29/2017 Comp Metabolic Vng076 NA 143 mEq/L 05/29/2017 Comp Metabolic Jom800 K 3.5 mEq/L 05/29/2017 Comp Metabolic Rro182 CL 103 mEq/L 05/29/2017 Comp Metabolic Pxb698 CO2 29.0 mEq/L 05/29/2017 Comp Metabolic Scy253 ANION GAP 15 05/29/2017 Comp Metabolic Cwb987 GLUCOSE 122 mg/dL 05/29/2017 Comp Metabolic Tep642 Creat 0.6 mg/dL 05/29/2017 Comp Metabolic Ikc607 eGFR 102 ml/min/1.73m2 05/29/2017 Comp Metabolic Ufk292 BUN 11 mg/dL 05/29/2017 Comp Metabolic Bde719 B/C Ratio 17.7 Ratio 05/29/2017 Comp Metabolic Vpl764 CALCIUM 9.6 mg/dL 05/29/2017 Comp Metabolic Adw095 ALK PHOS 79 U/L 05/29/2017 Comp Metabolic Wry611 AST(SGOT) 16 U/L 05/29/2017 Comp Metabolic Dxh951 ALT(SGPT) 17 U/L 05/29/2017 Comp Metabolic Hyp931 BILI T 0.6 mg/dL 05/29/2017 Comp Metabolic Tnf620 ALBUMIN 4.6 g/dL 05/29/2017 Comp Metabolic Uww948 TPRO 6.7 g/dL 05/29/2017 Comp Metabolic Gvv582 GLOB 2.1 g/dL 05/29/2017 Comp Metabolic Esy738 A/G Ratio 2.1 Ratio 05/29/2017 Comp Metabolic Fnb246 Osmo 286 mOsmo 05/29/2017 [place] Spotted Fever Igg/Igm 400649 SKIP MT SPOTTED FEVER IGM EIA . 01/30/2017 [place] Spotted Fever Igg/Igm 819932 RMSF, IGM 0.31 index 01/30/2017 [employer] Spotted Fever Igg/Igm 627133 SKIP MT SPOTTED FEVER IGG EIA FLEX . 01/30/2017 [place] Spotted Fever Igg/Igm 518639 RMSF, IGG SCREEN-FLEX Negative 01/30/2017 Ehrlichia Chaffeensis Antibody Igm 914898 EHRLICHIA CHAFFEENSIS IGM < 1:16 01/30/2017 Ehrlichia Chaffeensis Antibody Igg 911687 EHRLICHIA CHAFFEENSIS IGG <1:64 01/30/2017 Lymes Disease Total Antibodies With Western Blot Reflex [id number] B. BURGDORFERI, IGG/IGM 0.12 LI 01/27/2017 Lymes Disease Total Antibodies With Western Blot Reflex [id number] 01/27/2017 Vitamin D 25 Oh [id number] VITAMIN D, 25 HYDROXY 37.04 ng/mL Sed Rate Ord21 ESR 16 mm/hr 01/26/2017 Cbc With Differential Ord2 WBC 4.65 K/ul 01/26/2017 Cbc With Differential Ord2 RBC 4.17 M/ul 01/26/2017 Cbc With Differential Ord2 HGB 12.7 g/dl 01/26/2017 Cbc With Differential Ord2 HCT 38.5 % 01/26/2017 Cbc With Differential Ord2 Neut% 57.7 % 01/26/2017 Cbc With Differential Ord2 MCV 92.3 fl 01/26/2017 Cbc With Differential Ord2 Lymph% 29.7 % 01/26/2017 Cbc With Differential Ord2 MCH 30.5 pg 01/26/2017 Cbc With Differential Ord2 [place]% 7.5 % 01/26/2017 Cbc With Differential Ord2 MCHC 33.0 pg 01/26/2017 Cbc With Differential Ord2 Eos% 4.7 % 01/26/2017 Cbc With Differential Ord2 PLT 204 K/ul 01/26/2017 Cbc With Differential Ord2 Baso% 0.4 % 01/26/2017 Cbc With Differential Ord2 RDW 14.3 % 01/26/2017 Cbc With Differential Ord2 Neut ABS# 2.68 K/ul 01/26/2017 Cbc With Differential Ord2 Lymph ABS# 1.38 K/ul 01/26/2017 Cbc With Differential Ord2 [place] ABS# 0.4 K/ul 01/26/2017 Cbc With Differential Ord2 Eos ABS# 0.2 K/ul 01/26/2017 Cbc With Differential Ord2 Baso ABS# 0.0 K/ul 01/26/2017 C-Reactive Protein Qnt Crqnt CRP 0.1 mg/dl 01/26/2017 Comp Metabolic Ocb446 NA 142 mEq/L 01/26/2017 Comp Metabolic Xvy777 K 3.7 mEq/L 01/26/2017 Comp Metabolic Ldn120 CL 103 mEq/L 01/26/2017 Comp Metabolic Sxl199 CO2 27.0 mEq/L 01/26/2017 Comp Metabolic Rxf565 ANION GAP 16 01/26/2017 Comp Metabolic Hmz529 GLUCOSE 105 mg/dL 01/26/2017 Comp Metabolic Ptj562 Creat 0.6 mg/dL 01/26/2017 Comp Metabolic Xcv273 eGFR 98 ml/min/1.73m2 01/26/2017 Comp Metabolic Beq054 BUN 14 mg/dL 01/26/2017 Comp Metabolic Zqx205 B/C Ratio 21.9 Ratio 01/26/2017 Comp Metabolic Skz692 CALCIUM 9.8 mg/dL 01/26/2017 Comp Metabolic Qko840 ALK PHOS 83 U/L 01/26/2017 Comp Metabolic Gok600 AST(SGOT) 15 U/L 01/26/2017 Comp Metabolic Mbb487 ALT(SGPT) 18 U/L 01/26/2017 Comp Metabolic Cbu522 BILI T 0.6 mg/dL 01/26/2017 Comp Metabolic Psx058 ALBUMIN 4.5 g/dL 01/26/2017 Comp Metabolic Ale507 TPRO 6.6 g/dL 01/26/2017 Comp Metabolic Tih074 GLOB 2.1 g/dL 01/26/2017 Comp Metabolic Ufz107 A/G Ratio 2.1 Ratio 01/26/2017 Comp Metabolic Zgv536 Osmo 284 mOsmo 01/26/2017 Lipid Ord30 CHOL 178 mg/dL 04/10/2016 Lipid Ord30 HDL 45.0 mg/dl 04/10/2016 Lipid Ord30 TRIG 190 mg/dL 04/10/2016 Lipid Ord30 LDL 95 mg/dL 04/10/2016 Lipid Ord30 C/HDL 4.0 Ratio 04/10/2016 Tsh Ord6 hTSH II 1.95 uIU/mL 04/10/2016 Cbc With Differential Ord2 WBC 5.17 K/ul 04/10/2016 Cbc With Differential Ord2 RBC 4.00 M/ul 04/10/2016 Cbc With Differential Ord2 HGB 12.2 g/dl 04/10/2016 Cbc With Differential Ord2 HCT 37.7 % 04/10/2016 Cbc With Differential Ord2 Neut% 64.8 % 04/10/2016 Cbc With Differential Ord2 MCV 94.3 fl 04/10/2016 Cbc With Differential Ord2 Lymph% 24.0 % 04/10/2016 Cbc With Differential Ord2 MCH 30.5 pg 04/10/2016 Cbc With Differential Ord2 [place]% 7.7 % 04/10/2016 Cbc With Differential Ord2 MCHC 32.4 pg 04/10/2016 Cbc With Differential Ord2 Eos% 3.1 % 04/10/2016 Cbc With Differential Ord2 PLT 195 K/ul 04/10/2016 Cbc With Differential Ord2 Baso% 0.4 % 04/10/2016 Cbc With Differential Ord2 RDW 14.9 % 04/10/2016 Cbc With Differential Ord2 Neut ABS# 3.35 K/ul 04/10/2016 Cbc With Differential Ord2 Lymph ABS# 1.24 K/ul 04/10/2016 Cbc With Differential Ord2 [place] ABS# 0.4 K/ul 04/10/2016 Cbc With Differential Ord2 Eos ABS# 0.2 K/ul 04/10/2016 Cbc With Differential Ord2 Baso ABS# 0.0 K/ul 04/10/2016 Comp Metabolic Qoe497 NA 141 mEq/L 04/10/2016 Comp Metabolic Fkz913 K 3.6 mEq/L 04/10/2016 Comp Metabolic Uzh146 CL 103 mEq/L 04/10/2016 Comp Metabolic Yzn161 CO2 32.0 mEq/L 04/10/2016 Comp Metabolic Meb286 ANION GAP 10 04/10/2016 Comp Metabolic Ixz120 GLUCOSE 107 mg/dL 04/10/2016 Comp Metabolic Jua874 Creat 0.7 mg/dL 04/10/2016 Comp Metabolic Tfw289 eGFR 97 ml/min/1.73m2 04/10/2016 Comp Metabolic Nfm774 BUN 15 mg/dL 04/10/2016 Comp Metabolic Fpm556 B/C Ratio 23.1 Ratio 04/10/2016 Comp Metabolic Vnd231 CALCIUM 9.4 mg/dL 04/10/2016 Comp Metabolic Xmx681 ALK PHOS 68 U/L 04/10/2016 Comp Metabolic Mlk125 AST(SGOT) 20 U/L 04/10/2016 Comp Metabolic Dpm749 ALT(SGPT) 23 U/L 04/10/2016 Comp Metabolic Cdz228 BILI T 0.6 mg/dL 04/10/2016 Comp Metabolic Lhu812 ALBUMIN 4.4 g/dL 04/10/2016 Comp Metabolic Gll246 TPRO 6.5 g/dL 04/10/2016 Comp Metabolic Kin154 GLOB 2.1 g/dL 04/10/2016 Comp Metabolic Tlm178 A/G Ratio 2.1 Ratio 04/10/2016 Comp Metabolic Sdz080 Osmo 283 mOsmo 04/10/2016 Free T4 Wuk706 FREE T4 0.80 ng/dL 04/10/2016 Review of Systems System Result Effective Dates Constitutional No anorexia 09/08/2018 Constitutional No night sweats 2018 Constitutional No chills 09/08/2018 Constitutional fatigue 09/08/2018 Constitutional No fever 09/08/2018 Constitutional insomnia 09/08/2018 Constitutional No malaise 09/08/2018 Eyes No eye discharge 09/08/2018 Eyes No eye erythema 09/08/2018 Eyes No vision change 09/08/2018 Ears/Nose/Throat/Neck No dizziness 2018 Ears/Nose/Throat/Neck No headache 2018 Ears/Nose/Throat/Neck No nasal allergies 09/08/2018 Ears/Nose/Throat/Neck No nasal discharge 09/08/2018 Ears/Nose/Throat/Neck No sore throat Ears/Nose/Throat/Neck No otalgia 2018 Cardiovascular No chest pain/pressure Cardiovascular No dyspnea 09/08/2018 Respiratory No productive sputum 2018 Respiratory No chest congestion 2018 Gastrointestinal No abdominal pain 2018 Gastrointestinal constipation 09/08/2018 Gastrointestinal No diarrhea 09/08/2018 Genitourinary/Nephrology No dysuria 09/08 Musculoskeletal back pain 09/08/2018 Dermatologic No rash 09/08/2018 Dermatologic scar 09/08/2018 Neurologic No alteration of consciousness 09/08/2018 Psychiatric anxiety 09/08/2018 Psychiatric depression 09/08/2018 Constitutional No recent illness 2017 Constitutional No chills 06/10/2018 Constitutional No diaphoresis 06/10/2018 Constitutional No fever 06/10/2018 Constitutional fatigue 06/10/2018 Eyes No eye erythema 06/10/2018 Ears/Nose/Throat/Neck No nasal discharge 06/10/2018 Ears/Nose/Throat/Neck No nasal allergies 06/10/2018 Cardiovascular No chest pain/pressure Cardiovascular No dyspnea 06/10/2018 Cardiovascular fatigue 06/10/2018 Respiratory No cough 06/10/2018 Respiratory No chest congestion 2017 Gastrointestinal No abdominal pain 2017 Gastrointestinal No constipation 2017 Gastrointestinal No diarrhea 06/10/2018 Gastrointestinal No vomiting 06/10/2018 Gastrointestinal No nausea 06/10/2018 Musculoskeletal No joint complaint 2017 Gastrointestinal No gastroesophageal reflux 06/10/2018 Neurologic No alteration of consciousness 06/10/2018 Neurologic No mental status change 2017 Constitutional No anorexia 05/10/2018 Constitutional No night sweats 2017 Constitutional No chills 05/10/2018 Constitutional fatigue 05/10/2018 Constitutional No fever 05/10/2018 Constitutional insomnia 05/10/2018 Constitutional No malaise 05/10/2018 Eyes No eye discharge 05/10/2018 Eyes No eye erythema 05/10/2018 Eyes No vision change 05/10/2018 Ears/Nose/Throat/Neck No dizziness 2017 Ears/Nose/Throat/Neck No headache 2017 Ears/Nose/Throat/Neck No nasal allergies 05/10/2018 Ears/Nose/Throat/Neck No nasal discharge 05/10/2018 Ears/Nose/Throat/Neck No sore throat Ears/Nose/Throat/Neck No otalgia 2017 Cardiovascular No chest pain/pressure Cardiovascular No dyspnea 05/10/2018 Respiratory No productive sputum 2017 Respiratory No chest congestion 2017 Gastrointestinal No abdominal pain 2017 Gastrointestinal constipation 05/10/2018 Gastrointestinal No diarrhea 05/10/2018 Genitourinary/Nephrology No dysuria 05/10 Musculoskeletal back pain 05/10/2018 Dermatologic No rash 05/10/2018 Dermatologic scar 05/10/2018 Neurologic No alteration of consciousness 05/10/2018 Psychiatric anxiety 05/10/2018 Psychiatric depression 05/10/2018 Constitutional No recent illness 2017 Constitutional No chills 04/01/2018 Constitutional No fever 04/01/2018 Eyes No eye erythema 04/01/2018 Ears/Nose/Throat/Neck No nasal discharge 04/01/2018 Cardiovascular No chest pain/pressure Cardiovascular No dyspnea 04/01/2018 Respiratory No cough 04/01/2018 Respiratory No dyspnea 04/01/2018 Neurologic No alteration of consciousness 04/01/2018 Neurologic No mental status change 2017 Musculoskeletal back pain 04/01/2018 Constitutional recent illness 02/04/2018 Constitutional No chills 02/04/2018 Constitutional No diaphoresis 02/04/2018 Constitutional No fever 02/04/2018 Eyes No eye erythema 02/04/2018 Ears/Nose/Throat/Neck No nasal discharge 02/04/2018 Ears/Nose/Throat/Neck No nasal allergies 02/04/2018 Cardiovascular No chest pain/pressure Respiratory No cough 02/04/2018 Respiratory No chest congestion 2017 Gastrointestinal abdominal pain 2017 Gastrointestinal No constipation 2017 Gastrointestinal diarrhea 02/04/2018 Gastrointestinal No vomiting 02/04/2018 Gastrointestinal No nausea 02/04/2018 Gastrointestinal No melena 02/04/2018 Gastrointestinal No hematochezia 2017 Musculoskeletal No joint complaint 2017 Dermatologic No rash 02/04/2018 Neurologic No alteration of consciousness 02/04/2018 Neurologic No mental status change 2017 Constitutional No anorexia 01/12/2018 Constitutional No night sweats 2017 Constitutional No chills 01/12/2018 Constitutional fatigue 01/12/2018 Constitutional No fever 01/12/2018 Constitutional insomnia 01/12/2018 Constitutional No malaise 01/12/2018 Eyes No eye discharge 01/12/2018 Eyes No eye erythema 01/12/2018 Eyes No vision change 01/12/2018 Ears/Nose/Throat/Neck No dizziness 2017 Ears/Nose/Throat/Neck No headache 2017 Ears/Nose/Throat/Neck No nasal allergies 01/12/2018 Ears/Nose/Throat/Neck No nasal discharge 01/12/2018 Ears/Nose/Throat/Neck No sore throat Ears/Nose/Throat/Neck No otalgia 2017 Cardiovascular No chest pain/pressure Cardiovascular No dyspnea 01/12/2018 Respiratory No productive sputum 2017 Respiratory No chest congestion 2017 Gastrointestinal No abdominal pain 2017 Gastrointestinal constipation 01/12/2018 Gastrointestinal No diarrhea 01/12/2018 Genitourinary/Nephrology No dysuria 01/12 Dermatologic No rash 01/12/2018 Dermatologic scar 01/12/2018 Neurologic No alteration of consciousness 01/12/2018 Psychiatric anxiety 01/12/2018 Psychiatric depression 01/12/2018 Musculoskeletal back pain 01/12/2018 Constitutional No recent illness 2017 Constitutional No chills 12/08/2017 Constitutional No diaphoresis 12/08/2017 Constitutional No fever 12/08/2017 Eyes No eye erythema 12/08/2017 Ears/Nose/Throat/Neck No nasal discharge 12/08/2017 Cardiovascular No chest pain/pressure Cardiovascular No dyspnea 12/08/2017 Respiratory No cough 12/08/2017 Respiratory No dyspnea 12/08/2017 Neurologic No alteration of consciousness 12/08/2017 Neurologic No mental status change 2017 Constitutional No anorexia 11/18/2017 Constitutional No night sweats 2017 Constitutional No chills 11/18/2017 Constitutional fatigue 11/18/2017 Constitutional No fever 11/18/2017 Constitutional insomnia 11/18/2017 Constitutional No malaise 11/18/2017 Eyes No eye discharge 11/18/2017 Eyes No eye erythema 11/18/2017 Eyes No vision change 11/18/2017 Ears/Nose/Throat/Neck No dizziness 2017 Ears/Nose/Throat/Neck No headache 2017 Ears/Nose/Throat/Neck No nasal allergies 11/18/2017 Ears/Nose/Throat/Neck No nasal discharge 11/18/2017 Ears/Nose/Throat/Neck No sore throat 11/2017 Ears/Nose/Throat/Neck No otalgia 2017 Cardiovascular No chest pain/pressure 11/2017 Cardiovascular No dyspnea 11/18/2017 Respiratory No productive sputum 2017 Respiratory No chest congestion 2017 Gastrointestinal No abdominal pain 2017 Gastrointestinal constipation 11/18/2017 Gastrointestinal No diarrhea 11/18/2017 Genitourinary/Nephrology No dysuria 11/18 Dermatologic No rash 11/18/2017 Dermatologic scar 11/18/2017 Neurologic No alteration of consciousness 11/18/2017 Psychiatric anxiety 11/18/2017 Psychiatric depression 11/18/2017 Constitutional No anorexia 10/27/2017 Constitutional No night sweats 2017 Constitutional No chills 10/27/2017 Constitutional fatigue 10/27/2017 Constitutional No fever 10/27/2017 Constitutional insomnia 10/27/2017 Constitutional No malaise 10/27/2017 Eyes No eye discharge 10/27/2017 Eyes No eye erythema 10/27/2017 Eyes No vision change 10/27/2017 Ears/Nose/Throat/Neck No dizziness 2017 Ears/Nose/Throat/Neck No headache 2017 Ears/Nose/Throat/Neck No nasal allergies 10/27/2017 Ears/Nose/Throat/Neck No nasal discharge 10/27/2017 Ears/Nose/Throat/Neck No sore throat Ears/Nose/Throat/Neck No otalgia 2017 Cardiovascular No chest pain/pressure Cardiovascular No dyspnea 10/27/2017 Respiratory No productive sputum 2017 Respiratory No chest congestion 2017 Gastrointestinal No abdominal pain 2017 Gastrointestinal constipation 10/27/2017 Gastrointestinal No diarrhea 10/27/2017 Genitourinary/Nephrology No dysuria 10/27 Musculoskeletal joint complaint 2017 Dermatologic No rash 10/27/2017 Dermatologic scar 10/27/2017 Neurologic No alteration of consciousness 10/27/2017 Psychiatric anxiety 10/27/2017 Psychiatric depression 10/27/2017 Constitutional No anorexia 07/29/2017 Constitutional No night sweats 2017 Constitutional No chills 07/29/2017 Constitutional fatigue 07/29/2017 Constitutional No fever 07/29/2017 Constitutional insomnia 07/29/2017 Constitutional No malaise 07/29/2017 Eyes No eye discharge 07/29/2017 Eyes No eye erythema 07/29/2017 Eyes No vision change 07/29/2017 Ears/Nose/Throat/Neck No dizziness 2017 Ears/Nose/Throat/Neck No headache 2017 Ears/Nose/Throat/Neck No nasal allergies 07/29/2017 Ears/Nose/Throat/Neck No nasal discharge 07/29/2017 Ears/Nose/Throat/Neck No sore throat Ears/Nose/Throat/Neck No otalgia 2017 Cardiovascular No chest pain/pressure Cardiovascular No dyspnea 07/29/2017 Respiratory No productive sputum 2017 Respiratory No chest congestion 2017 Gastrointestinal No abdominal pain 2017 Gastrointestinal constipation 07/29/2017 Gastrointestinal No diarrhea 07/29/2017 Genitourinary/Nephrology No dysuria 07/29 Musculoskeletal joint complaint 2017 Dermatologic No rash 07/29/2017 Dermatologic scar 07/29/2017 Neurologic No alteration of consciousness 07/29/2017 Psychiatric anxiety 07/29/2017 Psychiatric depression 07/29/2017 Constitutional No anorexia 06/30/2017 Constitutional No night sweats 2017 Constitutional No chills 06/30/2017 Constitutional fatigue 06/30/2017 Constitutional No fever 06/30/2017 Constitutional insomnia 06/30/2017 Constitutional No malaise 06/30/2017 Eyes No eye discharge 06/30/2017 Eyes No eye erythema 06/30/2017 Eyes No vision change 06/30/2017 Ears/Nose/Throat/Neck No dizziness 2017 Ears/Nose/Throat/Neck No headache 2017 Ears/Nose/Throat/Neck No nasal allergies 06/30/2017 Ears/Nose/Throat/Neck No nasal discharge 06/30/2017 Ears/Nose/Throat/Neck No sore throat Ears/Nose/Throat/Neck No otalgia 2017 Cardiovascular No chest pain/pressure Cardiovascular No dyspnea 06/30/2017 Respiratory No productive sputum 2017 Respiratory No chest congestion 2017 Gastrointestinal No abdominal pain 2017 Gastrointestinal constipation 06/30/2017 Gastrointestinal No diarrhea 06/30/2017 Genitourinary/Nephrology No dysuria 06/30 Musculoskeletal joint complaint 2017 Dermatologic No rash 06/30/2017 Neurologic No alteration of consciousness 06/30/2017 Psychiatric anxiety 06/30/2017 Psychiatric depression 06/30/2017 Dermatologic scar 06/30/2017 Constitutional No anorexia 05/19/2017 Constitutional No night sweats 2016 Constitutional No chills 05/19/2017 Constitutional fatigue 05/19/2017 Constitutional No fever 05/19/2017 Constitutional insomnia 05/19/2017 Constitutional No malaise 05/19/2017 Eyes No eye discharge 05/19/2017 Eyes No eye erythema 05/19/2017 Eyes No vision change 05/19/2017 Ears/Nose/Throat/Neck No dizziness 2016 Ears/Nose/Throat/Neck No headache 2016 Ears/Nose/Throat/Neck No nasal allergies 05/19/2017 Ears/Nose/Throat/Neck No nasal discharge 05/19/2017 Ears/Nose/Throat/Neck No sore throat 10/2016 Ears/Nose/Throat/Neck No otalgia 2016 Cardiovascular No chest pain/pressure 10/2016 Cardiovascular No dyspnea 05/19/2017 Respiratory No productive sputum 2016 Respiratory No chest congestion 2016 Respiratory cough 05/19/2017 Gastrointestinal No abdominal pain 2016 Gastrointestinal constipation 05/19/2017 Gastrointestinal No diarrhea 05/19/2017 Genitourinary/Nephrology No dysuria 05/19 Musculoskeletal joint complaint 2016 Dermatologic No rash 05/19/2017 Neurologic No alteration of consciousness 05/19/2017 Psychiatric anxiety 05/19/2017 Psychiatric depression 05/19/2017 Constitutional No anorexia 04/07/2017 Constitutional No night sweats 2016 Constitutional No chills 04/07/2017 Constitutional fatigue 04/07/2017 Constitutional No fever 04/07/2017 Constitutional insomnia 04/07/2017 Constitutional No malaise 04/07/2017 Eyes No eye discharge 04/07/2017 Eyes No eye erythema 04/07/2017 Eyes No vision change 04/07/2017 Ears/Nose/Throat/Neck No dizziness 2016 Ears/Nose/Throat/Neck No headache 2016 Ears/Nose/Throat/Neck No nasal allergies 04/07/2017 Ears/Nose/Throat/Neck No nasal discharge 04/07/2017 Ears/Nose/Throat/Neck No sore throat Ears/Nose/Throat/Neck No otalgia 2016 Cardiovascular No chest pain/pressure Cardiovascular No dyspnea 04/07/2017 Respiratory No productive sputum 2016 Respiratory No chest congestion 2016 Respiratory cough 04/07/2017 Gastrointestinal No abdominal pain 2016 Gastrointestinal constipation 04/07/2017 Gastrointestinal No diarrhea 04/07/2017 Genitourinary/Nephrology No dysuria 04/07 Musculoskeletal joint complaint 2016 Dermatologic No rash 04/07/2017 Neurologic No alteration of consciousness 04/07/2017 Psychiatric anxiety 04/07/2017 Psychiatric depression 04/07/2017 Constitutional No recent illness 2016 Constitutional No chills 02/23/2017 Constitutional No diaphoresis 02/23/2017 Constitutional No fever 02/23/2017 Eyes No eye erythema 02/23/2017 Ears/Nose/Throat/Neck No nasal allergies 02/23/2017 Ears/Nose/Throat/Neck No nasal discharge 02/23/2017 Cardiovascular No chest pain/pressure 04/2017 Cardiovascular No dyspnea 02/23/2017 Respiratory No cough 02/23/2017 Respiratory No dyspnea 02/23/2017 Gastrointestinal No abdominal pain 2016 Musculoskeletal myalgias 02/23/2017 Dermatologic No rash 02/23/2017 Neurologic No alteration of consciousness 02/23/2017 Neurologic No mental status change 2016 Constitutional No recent illness 2016 Constitutional No diaphoresis 01/26/2017 Constitutional No chills 01/26/2017 Constitutional No fever 01/26/2017 Constitutional fatigue 01/26/2017 Eyes No eye erythema 01/26/2017 Ears/Nose/Throat/Neck No nasal allergies 01/26/2017 Ears/Nose/Throat/Neck No nasal discharge 01/26/2017 Cardiovascular No chest pain/pressure Cardiovascular No dyspnea 01/26/2017 Respiratory No cough 01/26/2017 Respiratory No dyspnea 01/26/2017 Gastrointestinal No abdominal pain 2016 Musculoskeletal myalgias 01/26/2017 Musculoskeletal joint complaint 2016 Musculoskeletal arthralgia(s) 01/26/2017 Musculoskeletal back pain 01/26/2017 Dermatologic No rash 01/26/2017 Dermatologic erythema 01/26/2017 Neurologic No alteration of consciousness 01/26/2017 Neurologic No mental status change 2016 Constitutional No recent illness 2016 Constitutional No chills 01/09/2017 Constitutional No diaphoresis 01/09/2017 Constitutional No fever 01/09/2017 Eyes No eye erythema 01/09/2017 Ears/Nose/Throat/Neck No nasal discharge 01/09/2017 Ears/Nose/Throat/Neck No nasal allergies 01/09/2017 Cardiovascular No chest pain/pressure Cardiovascular No dyspnea 01/09/2017 Respiratory No cough 01/09/2017 Respiratory No dyspnea 01/09/2017 Gastrointestinal No abdominal pain 2016 Musculoskeletal myalgias 01/09/2017 Dermatologic No rash 01/09/2017 Neurologic No alteration of consciousness 01/09/2017 Neurologic No mental status change 2016 Constitutional No anorexia 10/07/2016 Constitutional No night sweats 2016 Constitutional No chills 10/07/2016 Constitutional fatigue 10/07/2016 Constitutional No fever 10/07/2016 Constitutional insomnia 10/07/2016 Constitutional No malaise 10/07/2016 Eyes No eye discharge 10/07/2016 Eyes No eye erythema 10/07/2016 Eyes No vision change 10/07/2016 Ears/Nose/Throat/Neck No dizziness 2016 Ears/Nose/Throat/Neck No headache 2016 Ears/Nose/Throat/Neck No nasal allergies 10/07/2016 Ears/Nose/Throat/Neck No nasal discharge 10/07/2016 Ears/Nose/Throat/Neck No sore throat Ears/Nose/Throat/Neck No otalgia 2016 Cardiovascular No chest pain/pressure Cardiovascular No dyspnea 10/07/2016 Respiratory No productive sputum 2016 Respiratory No chest congestion 2016 Respiratory cough 10/07/2016 Gastrointestinal No abdominal pain 2016 Gastrointestinal constipation 10/07/2016 Gastrointestinal No diarrhea 10/07/2016 Genitourinary/Nephrology No dysuria 10/07 Musculoskeletal joint complaint 2016 Dermatologic No rash 10/07/2016 Neurologic No alteration of consciousness 10/07/2016 Psychiatric anxiety 10/07/2016 Psychiatric depression 10/07/2016 Constitutional No anorexia 04/01/2016 Constitutional No night sweats 2015 Constitutional No chills 04/01/2016 Constitutional fatigue 04/01/2016 Constitutional No fever 04/01/2016 Constitutional insomnia 04/01/2016 Constitutional No malaise 04/01/2016 Eyes No eye discharge 04/01/2016 Eyes No eye erythema 04/01/2016 Eyes No vision change 04/01/2016 Ears/Nose/Throat/Neck No dizziness 2015 Ears/Nose/Throat/Neck No headache 2015 Ears/Nose/Throat/Neck No nasal allergies 04/01/2016 Ears/Nose/Throat/Neck No nasal discharge 04/01/2016 Ears/Nose/Throat/Neck No sore throat Ears/Nose/Throat/Neck No otalgia 2015 Cardiovascular No chest pain/pressure Cardiovascular No dyspnea 04/01/2016 Respiratory No productive sputum 2015 Respiratory No chest congestion 2015 Respiratory cough 04/01/2016 Gastrointestinal No abdominal pain 2015 Gastrointestinal constipation 04/01/2016 Gastrointestinal No diarrhea 04/01/2016 Genitourinary/Nephrology No dysuria 04/01 Musculoskeletal joint complaint 2015 Dermatologic No rash 04/01/2016 Neurologic No alteration of consciousness 04/01/2016 Psychiatric anxiety 04/01/2016 Psychiatric depression 04/01/2016 Constitutional recent illness 12/03/2015 Constitutional No anorexia 12/03/2015 Constitutional No night sweats 2015 Constitutional No chills 12/03/2015 Constitutional diaphoresis 12/03/2015 Constitutional fatigue 12/03/2015 Constitutional No fever 12/03/2015 Constitutional insomnia 12/03/2015 Constitutional No malaise 12/03/2015 Eyes No eye discharge 12/03/2015 Eyes No eye erythema 12/03/2015 Eyes No vision change 12/03/2015 Ears/Nose/Throat/Neck No dizziness 2015 Ears/Nose/Throat/Neck No headache 2015 Ears/Nose/Throat/Neck No nasal allergies 12/03/2015 Ears/Nose/Throat/Neck No nasal discharge 12/03/2015 Ears/Nose/Throat/Neck No sore throat Ears/Nose/Throat/Neck tinnitus 2015 Ears/Nose/Throat/Neck No otalgia 2015 Cardiovascular No chest pain/pressure Cardiovascular No dyspnea 12/03/2015 Respiratory No productive sputum 2015 Respiratory No chest congestion 2015 Respiratory cough 12/03/2015 Gastrointestinal No abdominal pain 2015 Gastrointestinal constipation 12/03/2015 Gastrointestinal No diarrhea 12/03/2015 Genitourinary/Nephrology No dysuria 12/02 Musculoskeletal joint complaint 2015 Dermatologic No rash 12/03/2015 Neurologic No alteration of consciousness 12/03/2015 Psychiatric anxiety 12/03/2015 Psychiatric depression 12/03/2015 Constitutional No chills 11/22/2015 Constitutional fatigue 11/22/2015 Constitutional No fever 11/22/2015 Constitutional No malaise 11/22/2015 Eyes No eye discharge 11/22/2015 Eyes No eye erythema 11/22/2015 Eyes No vision change 11/22/2015 Ears/Nose/Throat/Neck No nasal allergies 11/22/2015 Ears/Nose/Throat/Neck No nasal discharge 11/22/2015 Cardiovascular No chest pain/pressure 02/2016 Cardiovascular No dyspnea 11/22/2015 Respiratory No chest congestion 2015 Dermatologic No rash 11/22/2015 Neurologic No alteration of consciousness 11/22/2015 Constitutional No recent illness 2015 Respiratory No cough 11/22/2015 Gastrointestinal No abdominal pain 2015 Musculoskeletal joint complaint 2015 Neurologic No mental status change 2015 Constitutional recent illness 08/29/2015 Constitutional No anorexia 08/29/2015 Constitutional No night sweats 2015 Constitutional No chills 08/29/2015 Constitutional diaphoresis 08/29/2015 Constitutional fatigue 08/29/2015 Constitutional No fever 08/29/2015 Constitutional insomnia 08/29/2015 Constitutional No malaise 08/29/2015 Eyes No eye discharge 08/29/2015 Eyes No eye erythema 08/29/2015 Eyes No vision change 08/29/2015 Ears/Nose/Throat/Neck dizziness 2015 Ears/Nose/Throat/Neck No headache 2015 Ears/Nose/Throat/Neck nasal allergies Ears/Nose/Throat/Neck No nasal discharge 08/29/2015 Ears/Nose/Throat/Neck No otalgia 2015 Ears/Nose/Throat/Neck No sore throat Ears/Nose/Throat/Neck tinnitus 2015 Cardiovascular No chest pain/pressure Cardiovascular No dyspnea 08/29/2015 Respiratory No productive sputum 2015 Respiratory No chest congestion 2015 Respiratory cough 08/29/2015 Gastrointestinal No abdominal pain 2015 Gastrointestinal constipation 08/29/2015 Gastrointestinal No diarrhea 08/29/2015 Genitourinary/Nephrology No dysuria 08/28 Musculoskeletal joint complaint 2015 Dermatologic No rash 08/29/2015 Neurologic No alteration of consciousness 08/29/2015 Psychiatric anxiety 08/29/2015 Psychiatric depression 08/29/2015 Ears/Nose/Throat/Neck facial pain 2015 Constitutional recent illness 02/28/2015 Constitutional No anorexia 02/28/2015 Constitutional No night sweats 2014 Constitutional No chills 02/28/2015 Constitutional diaphoresis 02/28/2015 Constitutional fatigue 02/28/2015 Constitutional No fever 02/28/2015 Constitutional insomnia 02/28/2015 Constitutional No malaise 02/28/2015 Eyes No eye discharge 02/28/2015 Eyes No eye erythema 02/28/2015 Eyes No vision change 02/28/2015 Ears/Nose/Throat/Neck No dizziness 2014 Ears/Nose/Throat/Neck No headache 2014 Ears/Nose/Throat/Neck No nasal allergies 02/28/2015 Ears/Nose/Throat/Neck No nasal discharge 02/28/2015 Ears/Nose/Throat/Neck No otalgia 2014 Ears/Nose/Throat/Neck No sore throat Ears/Nose/Throat/Neck tinnitus 2014 Cardiovascular No chest pain/pressure Cardiovascular No dyspnea 02/28/2015 Respiratory No productive sputum 2014 Respiratory No chest congestion 2014 Respiratory cough 02/28/2015 Gastrointestinal No abdominal pain 2014 Gastrointestinal constipation 02/28/2015 Gastrointestinal No diarrhea 02/28/2015 Genitourinary/Nephrology No dysuria 02/28 Musculoskeletal joint complaint 2014 Dermatologic No rash 02/28/2015 Neurologic No alteration of consciousness 02/28/2015 Psychiatric anxiety 02/28/2015 Psychiatric depression 02/28/2015 Ears/Nose/Throat/Neck No dizziness 2014 Ears/Nose/Throat/Neck No headache 2014 Ears/Nose/Throat/Neck tinnitus 2014 Ears/Nose/Throat/Neck No otalgia 2014 Ears/Nose/Throat/Neck No nasal allergies 11/10/2014 Ears/Nose/Throat/Neck No nasal discharge 11/10/2014 Ears/Nose/Throat/Neck No sore throat Constitutional recent illness 11/10/2014 Constitutional No anorexia 11/10/2014 Constitutional No night sweats 2014 Constitutional No chills 11/10/2014 Constitutional diaphoresis 11/10/2014 Constitutional fatigue 11/10/2014 Constitutional No fever 11/10/2014 Constitutional insomnia 11/10/2014 Constitutional No malaise 11/10/2014 Constitutional No weight loss 11/10/2014 Constitutional No weight gain 11/10/2014 Eyes No eye discharge 11/10/2014 Eyes No eye erythema 11/10/2014 Eyes No vision change 11/10/2014 Cardiovascular No chest pain/pressure Cardiovascular No dyspnea 11/10/2014 Respiratory No productive sputum 2014 Respiratory No chest congestion 2014 Respiratory cough 11/10/2014 Gastrointestinal No abdominal pain 2014 Gastrointestinal constipation 11/10/2014 Gastrointestinal No diarrhea 11/10/2014 Genitourinary/Nephrology No dysuria 11/10 Musculoskeletal joint complaint 2014 Dermatologic No rash 11/10/2014 Neurologic No alteration of consciousness 11/10/2014 Psychiatric depression 11/10/2014 Psychiatric anxiety 11/10/2014 Physical Exam Exam Name System Name Item Name Status Result Effective Dates Notes Full Exam - General 1994 Constitutional general appearance Overall: well developed 09/08/2018 None Full Exam - General 1994 Constitutional general appearance Overall: in no acute distress 09/08/2018 None Full Exam - General 1994 Constitutional general appearance Overall: well nourished 09/08/2018 None Full Exam - General 1994 Eyes conjunctiva /eyelids Overall: conjunctiva clear 09/08/2018 None Full Exam - General 1994 Eyes conjunctiva /eyelids Overall: cornea clear 09/08/2018 None Full Exam - General 1994 Eyes conjunctiva /eyelids Overall: eyelids normal 09/08/2018 None Full Exam - General 1994 Eyes pupils and irises Overall: pupils equal, round, reactive to light and accomodation 09/08/2018 None Full Exam - General 1994 Ears/Nose/Throat otoscopic exam Overall: external auditory canals clear 09/08/2018 None Full Exam - General 1994 Ears/Nose/Throat otoscopic exam Overall: tympanic membranes clear 09/08/2018 None Full Exam - General 1994 Ears/Nose/Throat oral cavity/pharynx/larynx Overall: oral mucosa clear 09/08/2018 None Full Exam - General 1994 Ears/Nose/Throat oral cavity/pharynx/larynx Overall: oropharyngeal mucosa clear 09/08/2018 None Full Exam - General 1994 Ears/Nose/Throat oral cavity/pharynx/larynx Overall: no masses 09/08/2018 None Full Exam - General 1994 Respiratory auscultation Overall: breath sounds clear bilaterally 09/08/2018 None Full Exam - General 1994 Respiratory respiratory effort/rhythm Overall: no retractions 09/08/2018 None Full Exam - General 1994 Respiratory respiratory effort/rhythm Overall: normal rate 09/08/2018 None Full Exam - General 1994 Cardiovascular auscultation of heart Overall: regular rate 09/08/2018 None Full Exam - General 1994 Cardiovascular auscultation of heart Overall: normal heart sounds 09/08/2018 None Full Exam - General 1994 Cardiovascular auscultation of heart Overall: no murmurs 09/08/2018 None Full Exam - General 1994 Abdomen abdominal exam Overall: no tenderness 09/08/2018 None Full Exam - General 1994 Abdomen abdominal exam Overall: normal bowel sounds 09/08/2018 None Full Exam - General 1994 Musculoskeletal head and neck Overall: head atraumatic 09/08/2018 None Full Exam - General 1994 Musculoskeletal head and neck Overall: cervical spine benign 09/08/2018 None Full Exam - General 1994 Neurologic cranial nerves Overall: crainial nerves 2 - 12 grossly intact 09/08/2018 None Full Exam - General 1994 Psychiatric orientation/consciousness Overall: oriented to person, place and time 09/08/2018 None Full Exam - General 1994 Constitutional general appearance Overall: well developed 06/10/2018 None Full Exam - General 1994 Constitutional general appearance Overall: in no acute distress 06/10/2018 None Full Exam - General 1994 Constitutional general appearance Overall: well nourished 06/10/2018 None Full Exam - General 1994 Eyes conjunctiva /eyelids Overall: eyelids normal 06/10/2018 None Full Exam - General 1994 Eyes conjunctiva /eyelids Overall: cornea clear 06/10/2018 None Full Exam - General 1994 Eyes conjunctiva /eyelids Overall: conjunctiva clear 06/10/2018 None Full Exam - General 1994 Ears/Nose/Throat lips/teeth/gingiva Overall: benign lips 06/10/2018 None Full Exam - General 1994 Ears/Nose/Throat oral cavity/pharynx/larynx Overall: oral mucosa clear 06/10/2018 None Full Exam - General 1994 Ears/Nose/Throat oral cavity/pharynx/larynx Overall: oropharyngeal mucosa clear 06/10/2018 None Full Exam - General 1994 Respiratory respiratory effort/rhythm Overall: normal rate 06/10/2018 None Full Exam - General 1994 Respiratory respiratory effort/rhythm Overall: no retractions 06/10/2018 None Full Exam - General 1994 Respiratory auscultation Overall: breath sounds clear bilaterally 06/10/2018 None Full Exam - General 1994 Cardiovascular auscultation of heart Overall: normal heart sounds 06/10/2018 None Full Exam - General 1994 Cardiovascular auscultation of heart Overall: regular rate 06/10/2018 None Full Exam - General 1994 Musculoskeletal head and neck Overall: head atraumatic 06/10/2018 None Full Exam - General 1994 Musculoskeletal gait and station Overall: normal station 06/10/2018 None Full Exam - General 1994 Musculoskeletal gait and station Overall: normal gait 06/10/2018 None Full Exam - General 1994 Neurologic cranial nerves Overall: crainial nerves 2 - 12 grossly intact 06/10/2018 None Full Exam - General 1994 Psychiatric orientation/consciousness Overall: oriented to person, place and time 06/10/2018 None Full Exam - General 1994 Psychiatric mood and affect Overall: normal mood and affect 06/10/2018 None Full Exam - General 1994 Constitutional general appearance Overall: well developed 05/10/2018 None Full Exam - General 1994 Constitutional general appearance Overall: in no acute distress 05/10/2018 None Full Exam - General 1994 Constitutional general appearance Overall: well nourished 05/10/2018 None Full Exam - General 1994 Eyes conjunctiva /eyelids Overall: conjunctiva clear 05/10/2018 None Full Exam - General 1994 Eyes conjunctiva /eyelids Overall: cornea clear 05/10/2018 None Full Exam - General 1994 Eyes conjunctiva /eyelids Overall: eyelids normal 05/10/2018 None Full Exam - General 1994 Eyes pupils and irises Overall: pupils equal, round, reactive to light and accomodation 05/10/2018 None Full Exam - General 1994 Ears/Nose/Throat otoscopic exam Overall: external auditory canals clear 05/10/2018 None Full Exam - General 1994 Ears/Nose/Throat otoscopic exam Overall: tympanic membranes clear 05/10/2018 None Full Exam - General 1994 Ears/Nose/Throat oral cavity/pharynx/larynx Overall: oral mucosa clear 05/10/2018 None Full Exam - General 1994 Ears/Nose/Throat oral cavity/pharynx/larynx Overall: oropharyngeal mucosa clear 05/10/2018 None Full Exam - General 1994 Ears/Nose/Throat oral cavity/pharynx/larynx Overall: no masses 05/10/2018 None Full Exam - General 1994 Respiratory auscultation Overall: breath sounds clear bilaterally 05/10/2018 None Full Exam - General 1994 Respiratory respiratory effort/rhythm Overall: no retractions 05/10/2018 None Full Exam - General 1994 Respiratory respiratory effort/rhythm Overall: normal rate 05/10/2018 None Full Exam - General 1994 Cardiovascular auscultation of heart Overall: regular rate 05/10/2018 None Full Exam - General 1994 Cardiovascular auscultation of heart Overall: normal heart sounds 05/10/2018 None Full Exam - General 1994 Cardiovascular auscultation of heart Overall: no murmurs 05/10/2018 None Full Exam - General 1994 Abdomen abdominal exam Overall: no tenderness 05/10/2018 None Full Exam - General 1994 Abdomen abdominal exam Overall: normal bowel sounds 05/10/2018 None Full Exam - General 1994 Musculoskeletal head and neck Overall: head atraumatic 05/10/2018 None Full Exam - General 1994 Musculoskeletal head and neck Overall: cervical spine benign 05/10/2018 None Full Exam - General 1994 Neurologic cranial nerves Overall: crainial nerves 2 - 12 grossly intact 05/10/2018 None Full Exam - General 1994 Psychiatric orientation/consciousness Overall: oriented to person, place and time 05/10/2018 None Full Exam - Orthopedics Constitutional general appearance Overall: well nourished 04/01/2018 None Full Exam - Orthopedics Constitutional general appearance Overall: well developed 04/01/2018 None Full Exam - Orthopedics Constitutional general appearance Overall: in no acute distress 04/01/2018 None Full Exam - Orthopedics Eyes conjunctiva/ eyelids Overall: conjunctiva clear 04/01/2018 None Full Exam - Orthopedics Eyes conjunctiva/ eyelids Overall: eyelids normal 04/01/2018 None Full Exam - Orthopedics Ears/Nose/Throat lips/teeth/gingiva Overall: benign lips 04/01/2018 None Full Exam - Orthopedics Ears/Nose/Throat oral cavity/pharynx/larynx Overall: oral mucosa clear 04/01/2018 None Full Exam - Orthopedics Respiratory respiratory effort/rhythm Overall: no retractions 04/01/2018 None Full Exam - Orthopedics Respiratory respiratory effort/rhythm Overall: normal rate 04/01/2018 None Full Exam - Orthopedics Psychiatric orientation/consciousness Overall: oriented to person, place and time 04/01/2018 None Full Exam - Orthopedics Psychiatric mood and affect Overall: normal mood and affect 04/01/2018 None Full Exam - Orthopedics Psychiatric appearance Overall: well-groomed, good eye contact 04/01/2018 None Full Exam - Orthopedics MS: spine/rib/pelvis insp & palp - S/R/P Sacroiliac palpation: left sacroiliac joint tenderness 04/01/2018 None Full Exam - Orthopedics MS: spine/rib/pelvis insp & palp - S/R/P Sacroiliac palpation: right sacroiliac joint tenderness 04/01/2018 None Full Exam - Orthopedics MS: spine/rib/pelvis insp & palp - S/R/P Hip palpation: right trochanter tenderness 04/01/2018 None Full Exam - General 1994 Constitutional general appearance Overall: well developed 02/04/2018 None Full Exam - General 1994 Constitutional general appearance Overall: in no acute distress 02/04/2018 None Full Exam - General 1994 Constitutional general appearance Overall: well nourished 02/04/2018 None Full Exam - General 1994 Eyes conjunctiva /eyelids Overall: conjunctiva clear 02/04/2018 None Full Exam - General 1994 Eyes conjunctiva /eyelids Overall: cornea clear 02/04/2018 None Full Exam - General 1994 Eyes conjunctiva /eyelids Overall: eyelids normal 02/04/2018 None Full Exam - General 1994 Eyes pupils and irises Overall: pupils equal, round, reactive to light and accomodation 02/04/2018 None Full Exam - General 1994 Ears/Nose/Throat otoscopic exam Overall: tympanic membranes clear 02/04/2018 None Full Exam - General 1994 Ears/Nose/Throat otoscopic exam Overall: external auditory canals clear 02/04/2018 None Full Exam - General 1994 Ears/Nose/Throat lips/teeth/gingiva Overall: benign lips 02/04/2018 None Full Exam - General 1994 Ears/Nose/Throat oral cavity/pharynx/larynx Overall: oral mucosa clear 02/04/2018 None Full Exam - General 1994 Ears/Nose/Throat oral cavity/pharynx/larynx Overall: oropharyngeal mucosa clear 02/04/2018 None Full Exam - General 1994 Respiratory auscultation Overall: breath sounds clear bilaterally 02/04/2018 None Full Exam - General 1994 Respiratory respiratory effort/rhythm Overall: no retractions 02/04/2018 None Full Exam - General 1994 Respiratory respiratory effort/rhythm Overall: normal rate 02/04/2018 None Full Exam - General 1994 Cardiovascular auscultation of heart Overall: normal heart sounds 02/04/2018 None Full Exam - General 1994 Cardiovascular auscultation of heart Overall: regular rate 02/04/2018 None Full Exam - General 1994 Abdomen abdominal exam Overall: normal bowel sounds 02/04/2018 None Full Exam - General 1994 Abdomen abdominal exam Lower quadrant: tender to palpation 02/04/2018 None Full Exam - General 1994 Abdomen abdominal exam Lower quadrant: dull pain 02/04/2018 None Full Exam - General 1994 Abdomen abdominal exam Lower quadrant: no guarding 02/04/2018 None Full Exam - General 1994 Abdomen abdominal exam Lower quadrant: non-tender to palpation 02/04/2018 None Full Exam - General 1994 Abdomen abdominal exam Lower quadrant: no rebound tenderness 02/04/2018 None Full Exam - General 1994 Abdomen abdominal exam Lower quadrant: soft 02/04/2018 None Full Exam - General 1994 Abdomen abdominal exam Epigastric: tender to palpation 02/04/2018 None Full Exam - General 1994 Abdomen abdominal exam Epigastric: dull pain 02/04/2018 None Full Exam - General 1994 Abdomen abdominal exam Epigastric: no guarding 02/04/2018 None Full Exam - General 1994 Abdomen abdominal exam Epigastric: no rebound tenderness 02/04/2018 None Full Exam - General 1994 Abdomen abdominal exam Epigastric: soft 02/04/2018 None Full Exam - General 1994 Musculoskeletal head and neck Overall: head atraumatic 02/04/2018 None Full Exam - General 1994 Musculoskeletal gait and station Overall: normal station 02/04/2018 None Full Exam - General 1994 Musculoskeletal gait and station Overall: normal gait 02/04/2018 None Full Exam - General 1994 Neurologic cranial nerves Overall: crainial nerves 2 - 12 grossly intact 02/04/2018 None Full Exam - General 1994 Psychiatric orientation/consciousness Overall: oriented to person, place and time 02/04/2018 None Full Exam - General 1994 Psychiatric mood and affect Overall: normal mood and affect 02/04/2018 None Full Exam - General 1994 Constitutional general appearance Overall: well developed 01/12/2018 None Full Exam - General 1994 Constitutional general appearance Overall: in no acute distress 01/12/2018 None Full Exam - General 1994 Constitutional general appearance Overall: well nourished 01/12/2018 None Full Exam - General 1994 Eyes conjunctiva /eyelids Overall: conjunctiva clear 01/12/2018 None Full Exam - General 1994 Eyes conjunctiva /eyelids Overall: cornea clear 01/12/2018 None Full Exam - General 1994 Eyes conjunctiva /eyelids Overall: eyelids normal 01/12/2018 None Full Exam - General 1994 Eyes pupils and irises Overall: pupils equal, round, reactive to light and accomodation 01/12/2018 None Full Exam - General 1994 Ears/Nose/Throat otoscopic exam Overall: external auditory canals clear 01/12/2018 None Full Exam - General 1994 Ears/Nose/Throat otoscopic exam Overall: tympanic membranes clear 01/12/2018 None Full Exam - General 1994 Ears/Nose/Throat oral cavity/pharynx/larynx Overall: oral mucosa clear 01/12/2018 None Full Exam - General 1994 Ears/Nose/Throat oral cavity/pharynx/larynx Overall: oropharyngeal mucosa clear 01/12/2018 None Full Exam - General 1994 Ears/Nose/Throat oral cavity/pharynx/larynx Overall: no masses 01/12/2018 None Full Exam - General 1994 Respiratory auscultation Overall: breath sounds clear bilaterally 01/12/2018 None Full Exam - General 1994 Respiratory respiratory effort/rhythm Overall: no retractions 01/12/2018 None Full Exam - General 1994 Respiratory respiratory effort/rhythm Overall: normal rate 01/12/2018 None Full Exam - General 1994 Cardiovascular auscultation of heart Overall: regular rate 01/12/2018 None Full Exam - General 1994 Cardiovascular auscultation of heart Overall: normal heart sounds 01/12/2018 None Full Exam - General 1994 Cardiovascular auscultation of heart Overall: no murmurs 01/12/2018 None Full Exam - General 1994 Abdomen abdominal exam Overall: no tenderness 01/12/2018 None Full Exam - General 1994 Abdomen abdominal exam Overall: normal bowel sounds 01/12/2018 None Full Exam - General 1994 Musculoskeletal head and neck Overall: head atraumatic 01/12/2018 None Full Exam - General 1994 Musculoskeletal head and neck Overall: cervical spine benign 01/12/2018 None Full Exam - General 1994 Neurologic cranial nerves Overall: crainial nerves 2 - 12 grossly intact 01/12/2018 None Full Exam - General 1994 Psychiatric orientation/consciousness Overall: oriented to person, place and time 01/12/2018 None Full Exam - General 1994 Constitutional general appearance Overall: well developed 12/08/2017 None Full Exam - General 1994 Constitutional general appearance Overall: in no acute distress 12/08/2017 None Full Exam - General 1994 Constitutional general appearance Overall: well nourished 12/08/2017 None Full Exam - General 1994 Eyes conjunctiva /eyelids Overall: conjunctiva clear 12/08/2017 None Full Exam - General 1994 Eyes conjunctiva /eyelids Overall: eyelids normal 12/08/2017 None Full Exam - General 1994 Ears/Nose/Throat lips/teeth/gingiva Overall: benign lips 12/08/2017 None Full Exam - General 1994 Respiratory respiratory effort/rhythm Overall: no retractions 12/08/2017 None Full Exam - General 1994 Respiratory respiratory effort/rhythm Overall: normal rate 12/08/2017 None Full Exam - General 1994 Musculoskeletal head and neck Overall: head atraumatic 12/08/2017 None Full Exam - General 1994 Neurologic cranial nerves Overall: crainial nerves 2 - 12 grossly intact 12/08/2017 None Full Exam - General 1994 Psychiatric orientation/consciousness Overall: oriented to person, place and time 12/08/2017 None Full Exam - General 1994 Psychiatric mood and affect Overall: normal mood and affect 12/08/2017 None Full Exam - General 1994 Psychiatric appearance Overall: well-groomed, good eye contact 12/08/2017 None Full Exam - General 1994 Constitutional general appearance Overall: well developed 11/18/2017 None Full Exam - General 1994 Constitutional general appearance Overall: in no acute distress 11/18/2017 None Full Exam - General 1994 Constitutional general appearance Overall: well nourished 11/18/2017 None Full Exam - General 1994 Eyes conjunctiva /eyelids Overall: conjunctiva clear 11/18/2017 None Full Exam - General 1994 Eyes conjunctiva /eyelids Overall: cornea clear 11/18/2017 None Full Exam - General 1994 Eyes conjunctiva /eyelids Overall: eyelids normal 11/18/2017 None Full Exam - General 1994 Eyes pupils and irises Overall: pupils equal, round, reactive to light and accomodation 11/18/2017 None Full Exam - General 1994 Ears/Nose/Throat otoscopic exam Overall: external auditory canals clear 11/18/2017 None Full Exam - General 1994 Ears/Nose/Throat otoscopic exam Overall: tympanic membranes clear 11/18/2017 None Full Exam - General 1994 Ears/Nose/Throat oral cavity/pharynx/larynx Overall: oral mucosa clear 11/18/2017 None Full Exam - General 1994 Ears/Nose/Throat oral cavity/pharynx/larynx Overall: oropharyngeal mucosa clear 11/18/2017 None Full Exam - General 1994 Ears/Nose/Throat oral cavity/pharynx/larynx Overall: no masses 11/18/2017 None Full Exam - General 1994 Respiratory auscultation Overall: breath sounds clear bilaterally 11/18/2017 None Full Exam - General 1994 Respiratory respiratory effort/rhythm Overall: no retractions 11/18/2017 None Full Exam - General 1994 Respiratory respiratory effort/rhythm Overall: normal rate 11/18/2017 None Full Exam - General 1994 Cardiovascular auscultation of heart Overall: regular rate 11/18/2017 None Full Exam - General 1994 Cardiovascular auscultation of heart Overall: normal heart sounds 11/18/2017 None Full Exam - General 1994 Cardiovascular auscultation of heart Overall: no murmurs 11/18/2017 None Full Exam - General 1994 Abdomen abdominal exam Overall: no tenderness 11/18/2017 None Full Exam - General 1994 Abdomen abdominal exam Overall: normal bowel sounds 11/18/2017 None Full Exam - General 1994 Musculoskeletal head and neck Overall: head atraumatic 11/18/2017 None Full Exam - General 1994 Musculoskeletal head and neck Overall: cervical spine benign 11/18/2017 None Full Exam - General 1994 Neurologic cranial nerves Overall: crainial nerves 2 - 12 grossly intact 11/18/2017 None Full Exam - General 1994 Psychiatric orientation/consciousness Overall: oriented to person, place and time 11/18/2017 None Full Exam - General 1994 Constitutional general appearance Overall: well developed 10/27/2017 None Full Exam - General 1994 Constitutional general appearance Overall: in no acute distress 10/27/2017 None Full Exam - General 1994 Constitutional general appearance Overall: well nourished 10/27/2017 None Full Exam - General 1994 Constitutional general appearance Assistive Device: walker 10/27/2017 None Full Exam - General 1994 Eyes conjunctiva /eyelids Overall: conjunctiva clear 10/27/2017 None Full Exam - General 1994 Eyes conjunctiva /eyelids Overall: cornea clear 10/27/2017 None Full Exam - General 1994 Eyes conjunctiva /eyelids Overall: eyelids normal 10/27/2017 None Full Exam - General 1994 Eyes pupils and irises Overall: pupils equal, round, reactive to light and accomodation 10/27/2017 None Full Exam - General 1994 Ears/Nose/Throat otoscopic exam Overall: external auditory canals clear 10/27/2017 None Full Exam - General 1994 Ears/Nose/Throat otoscopic exam Overall: tympanic membranes clear 10/27/2017 None Full Exam - General 1994 Ears/Nose/Throat oral cavity/pharynx/larynx Overall: oral mucosa clear 10/27/2017 None Full Exam - General 1994 Ears/Nose/Throat oral cavity/pharynx/larynx Overall: oropharyngeal mucosa clear 10/27/2017 None Full Exam - General 1994 Ears/Nose/Throat oral cavity/pharynx/larynx Overall: no masses 10/27/2017 None Full Exam - General 1994 Respiratory auscultation Overall: breath sounds clear bilaterally 10/27/2017 None Full Exam - General 1994 Respiratory respiratory effort/rhythm Overall: no retractions 10/27/2017 None Full Exam - General 1994 Respiratory respiratory effort/rhythm Overall: normal rate 10/27/2017 None Full Exam - General 1994 Cardiovascular auscultation of heart Overall: regular rate 10/27/2017 None Full Exam - General 1994 Cardiovascular auscultation of heart Overall: normal heart sounds 10/27/2017 None Full Exam - General 1994 Cardiovascular auscultation of heart Overall: no murmurs 10/27/2017 None Full Exam - General 1994 Abdomen abdominal exam Overall: no tenderness 10/27/2017 None Full Exam - General 1994 Abdomen abdominal exam Overall: normal bowel sounds 10/27/2017 None Full Exam - General 1994 Musculoskeletal head and neck Overall: head atraumatic 10/27/2017 None Full Exam - General 1994 Musculoskeletal head and neck Overall: cervical spine benign 10/27/2017 None Full Exam - General 1994 Integument inspection of skin Location: back 10/27/2017 surgical site - healing well middle of low back Full Exam - General 1994 Neurologic cranial nerves Overall: crainial nerves 2 - 12 grossly intact 10/27/2017 None Full Exam - General 1994 Psychiatric orientation/consciousness Overall: oriented to person, place and time 10/27/2017 None Full Exam - General 1994 Constitutional general appearance Overall: well developed 07/29/2017 None Full Exam - General 1994 Constitutional general appearance Overall: in no acute distress 07/29/2017 None Full Exam - General 1994 Constitutional general appearance Overall: well nourished 07/29/2017 None Full Exam - General 1994 Constitutional general appearance Assistive Device: walker 07/29/2017 None Full Exam - General 1994 Eyes conjunctiva /eyelids Overall: conjunctiva clear 07/29/2017 None Full Exam - General 1994 Eyes conjunctiva /eyelids Overall: cornea clear 07/29/2017 None Full Exam - General 1994 Eyes conjunctiva /eyelids Overall: eyelids normal 07/29/2017 None Full Exam - General 1994 Eyes pupils and irises Overall: pupils equal, round, reactive to light and accomodation 07/29/2017 None Full Exam - General 1994 Ears/Nose/Throat oral cavity/pharynx/larynx Overall: oral mucosa clear 07/29/2017 None Full Exam - General 1994 Ears/Nose/Throat oral cavity/pharynx/larynx Overall: oropharyngeal mucosa clear 07/29/2017 None Full Exam - General 1994 Ears/Nose/Throat oral cavity/pharynx/larynx Overall: no masses 07/29/2017 None Full Exam - General 1994 Respiratory auscultation Overall: breath sounds clear bilaterally 07/29/2017 None Full Exam - General 1994 Respiratory respiratory effort/rhythm Overall: no retractions 07/29/2017 None Full Exam - General 1994 Respiratory respiratory effort/rhythm Overall: normal rate 07/29/2017 None Full Exam - General 1994 Cardiovascular auscultation of heart Overall: regular rate 07/29/2017 None Full Exam - General 1994 Cardiovascular auscultation of heart Overall: normal heart sounds 07/29/2017 None Full Exam - General 1994 Cardiovascular auscultation of heart Overall: no murmurs 07/29/2017 None Full Exam - General 1994 Musculoskeletal head and neck Overall: head atraumatic 07/29/2017 None Full Exam - General 1994 Musculoskeletal head and neck Overall: cervical spine benign 07/29/2017 None Full Exam - General 1994 Integument inspection of skin Location: back 07/29/2017 surgical site - healing well middle of low back Full Exam - General 1994 Psychiatric orientation/consciousness Overall: oriented to person, place and time 07/29/2017 None Full Exam - General 1994 Constitutional general appearance Overall: well developed 06/30/2017 None Full Exam - General 1994 Constitutional general appearance Overall: in no acute distress 06/30/2017 None Full Exam - General 1994 Constitutional general appearance Overall: well nourished 06/30/2017 None Full Exam - General 1994 Eyes conjunctiva /eyelids Overall: conjunctiva clear 06/30/2017 None Full Exam - General 1994 Eyes conjunctiva /eyelids Overall: cornea clear 06/30/2017 None Full Exam - General 1994 Eyes conjunctiva /eyelids Overall: eyelids normal 06/30/2017 None Full Exam - General 1994 Eyes pupils and irises Overall: pupils equal, round, reactive to light and accomodation 06/30/2017 None Full Exam - General 1994 Ears/Nose/Throat otoscopic exam Overall: external auditory canals clear 06/30/2017 None Full Exam - General 1994 Ears/Nose/Throat otoscopic exam Overall: tympanic membranes clear 06/30/2017 None Full Exam - General 1994 Ears/Nose/Throat oral cavity/pharynx/larynx Overall: oral mucosa clear 06/30/2017 None Full Exam - General 1994 Ears/Nose/Throat oral cavity/pharynx/larynx Overall: oropharyngeal mucosa clear 06/30/2017 None Full Exam - General 1994 Ears/Nose/Throat oral cavity/pharynx/larynx Overall: no masses 06/30/2017 None Full Exam - General 1994 Respiratory auscultation Overall: breath sounds clear bilaterally 06/30/2017 None Full Exam - General 1994 Respiratory respiratory effort/rhythm Overall: no retractions 06/30/2017 None Full Exam - General 1994 Respiratory respiratory effort/rhythm Overall: normal rate 06/30/2017 None Full Exam - General 1994 Cardiovascular auscultation of heart Overall: regular rate 06/30/2017 None Full Exam - General 1994 Cardiovascular auscultation of heart Overall: normal heart sounds 06/30/2017 None Full Exam - General 1994 Cardiovascular auscultation of heart Overall: no murmurs 06/30/2017 None Full Exam - General 1994 Abdomen abdominal exam Overall: no tenderness 06/30/2017 None Full Exam - General 1994 Abdomen abdominal exam Overall: normal bowel sounds 06/30/2017 None Full Exam - General 1994 Musculoskeletal head and neck Overall: head atraumatic 06/30/2017 None Full Exam - General 1994 Musculoskeletal head and neck Overall: cervical spine benign 06/30/2017 None Full Exam - General 1994 Neurologic cranial nerves Overall: crainial nerves 2 - 12 grossly intact 06/30/2017 None Full Exam - General 1994 Psychiatric orientation/consciousness Overall: oriented to person, place and time 06/30/2017 None Full Exam - General 1994 Integument inspection of skin Location: back 06/30/2017 surgical site - healing well middle of low back Full Exam - General 1994 Constitutional general appearance Assistive Device: walker 06/30/2017 None Full Exam - General 1994 Constitutional general appearance Overall: well developed 05/19/2017 None Full Exam - General 1994 Constitutional general appearance Overall: in no acute distress 05/19/2017 None Full Exam - General 1994 Constitutional general appearance Overall: well nourished 05/19/2017 None Full Exam - General 1994 Eyes conjunctiva /eyelids Overall: conjunctiva clear 05/19/2017 None Full Exam - General 1994 Eyes conjunctiva /eyelids Overall: cornea clear 05/19/2017 None Full Exam - General 1994 Eyes conjunctiva /eyelids Overall: eyelids normal 05/19/2017 None Full Exam - General 1994 Eyes pupils and irises Overall: pupils equal, round, reactive to light and accomodation 05/19/2017 None Full Exam - General 1994 Ears/Nose/Throat otoscopic exam Overall: external auditory canals clear 05/19/2017 None Full Exam - General 1994 Ears/Nose/Throat otoscopic exam Overall: tympanic membranes clear 05/19/2017 None Full Exam - General 1994 Ears/Nose/Throat oral cavity/pharynx/larynx Overall: oral mucosa clear 05/19/2017 None Full Exam - General 1994 Ears/Nose/Throat oral cavity/pharynx/larynx Overall: oropharyngeal mucosa clear 05/19/2017 None Full Exam - General 1994 Ears/Nose/Throat oral cavity/pharynx/larynx Overall: no masses 05/19/2017 None Full Exam - General 1994 Respiratory auscultation Overall: breath sounds clear bilaterally 05/19/2017 None Full Exam - General 1994 Respiratory respiratory effort/rhythm Overall: no retractions 05/19/2017 None Full Exam - General 1994 Respiratory respiratory effort/rhythm Overall: normal rate 05/19/2017 None Full Exam - General 1994 Cardiovascular auscultation of heart Overall: regular rate 05/19/2017 None Full Exam - General 1994 Cardiovascular auscultation of heart Overall: normal heart sounds 05/19/2017 None Full Exam - General 1994 Cardiovascular auscultation of heart Overall: no murmurs 05/19/2017 None Full Exam - General 1994 Abdomen abdominal exam Overall: no tenderness 05/19/2017 None Full Exam - General 1994 Abdomen abdominal exam Overall: normal bowel sounds 05/19/2017 None Full Exam - General 1994 Musculoskeletal gait and station Overall: normal gait 05/19/2017 None Full Exam - General 1994 Musculoskeletal gait and station Overall: normal station 05/19/2017 None Full Exam - General 1994 Musculoskeletal head and neck Overall: head atraumatic 05/19/2017 None Full Exam - General 1994 Musculoskeletal head and neck Overall: cervical spine benign 05/19/2017 None Full Exam - General 1994 Integument inspection of skin Location: abdomen 05/19/2017 cyst noted to right upper abdomen just below ribs-nontender, movable Full Exam - General 1994 Neurologic deep tendon reflexes Overall: deep tendon reflexes intact 05/19/2017 None Full Exam - General 1994 Neurologic cranial nerves Overall: crainial nerves 2 - 12 grossly intact 05/19/2017 None Full Exam - General 1994 Psychiatric orientation/consciousness Overall: oriented to person, place and time 05/19/2017 None Full Exam - General 1994 Constitutional general appearance Overall: well developed 04/07/2017 None Full Exam - General 1994 Constitutional general appearance Overall: in no acute distress 04/07/2017 None Full Exam - General 1994 Constitutional general appearance Overall: well nourished 04/07/2017 None Full Exam - General 1994 Eyes conjunctiva /eyelids Overall: conjunctiva clear 04/07/2017 None Full Exam - General 1994 Eyes conjunctiva /eyelids Overall: cornea clear 04/07/2017 None Full Exam - General 1994 Eyes conjunctiva /eyelids Overall: eyelids normal 04/07/2017 None Full Exam - General 1994 Eyes pupils and irises Overall: pupils equal, round, reactive to light and accomodation 04/07/2017 None Full Exam - General 1994 Ears/Nose/Throat otoscopic exam Overall: external auditory canals clear 04/07/2017 None Full Exam - General 1994 Ears/Nose/Throat otoscopic exam Overall: tympanic membranes clear 04/07/2017 None Full Exam - General 1994 Ears/Nose/Throat oral cavity/pharynx/larynx Overall: oral mucosa clear 04/07/2017 None Full Exam - General 1994 Ears/Nose/Throat oral cavity/pharynx/larynx Overall: oropharyngeal mucosa clear 04/07/2017 None Full Exam - General 1994 Ears/Nose/Throat oral cavity/pharynx/larynx Overall: no masses 04/07/2017 None Full Exam - General 1994 Respiratory auscultation Overall: breath sounds clear bilaterally 04/07/2017 None Full Exam - General 1994 Respiratory respiratory effort/rhythm Overall: no retractions 04/07/2017 None Full Exam - General 1994 Respiratory respiratory effort/rhythm Overall: normal rate 04/07/2017 None Full Exam - General 1994 Cardiovascular auscultation of heart Overall: regular rate 04/07/2017 None Full Exam - General 1994 Cardiovascular auscultation of heart Overall: normal heart sounds 04/07/2017 None Full Exam - General 1994 Cardiovascular auscultation of heart Overall: no murmurs 04/07/2017 None Full Exam - General 1994 Abdomen abdominal exam Overall: no tenderness 04/07/2017 None Full Exam - General 1994 Abdomen abdominal exam Overall: normal bowel sounds 04/07/2017 None Full Exam - General 1994 Musculoskeletal gait and station Overall: normal gait 04/07/2017 None Full Exam - General 1994 Musculoskeletal gait and station Overall: normal station 04/07/2017 None Full Exam - General 1994 Musculoskeletal head and neck Overall: head atraumatic 04/07/2017 None Full Exam - General 1994 Musculoskeletal head and neck Overall: cervical spine benign 04/07/2017 None Full Exam - General 1994 Integument inspection of skin Location: abdomen 04/07/2017 cyst noted to right upper abdomen just below ribs-nontender, movable Full Exam - General 1994 Neurologic deep tendon reflexes Overall: deep tendon reflexes intact 04/07/2017 None Full Exam - General 1994 Neurologic cranial nerves Overall: crainial nerves 2 - 12 grossly intact 04/07/2017 None Full Exam - General 1994 Psychiatric orientation/consciousness Overall: oriented to person, place and time 04/07/2017 None Full Exam - General 1994 Constitutional general appearance Overall: well developed 02/23/2017 None Full Exam - General 1994 Constitutional general appearance Overall: in no acute distress 02/23/2017 None Full Exam - General 1994 Constitutional general appearance Overall: well nourished 02/23/2017 None Full Exam - General 1994 Eyes conjunctiva /eyelids Overall: conjunctiva clear 02/23/2017 None Full Exam - General 1994 Eyes conjunctiva /eyelids Overall: eyelids normal 02/23/2017 None Full Exam - General 1994 Ears/Nose/Throat lips/teeth/gingiva Overall: benign lips 02/23/2017 None Full Exam - General 1994 Ears/Nose/Throat oral cavity/pharynx/larynx Overall: oral mucosa clear 02/23/2017 None Full Exam - General 1994 Ears/Nose/Throat oral cavity/pharynx/larynx Overall: oropharyngeal mucosa clear 02/23/2017 None Full Exam - General 1994 Respiratory auscultation Overall: breath sounds clear bilaterally 02/23/2017 None Full Exam - General 1994 Respiratory respiratory effort/rhythm Overall: no retractions 02/23/2017 None Full Exam - General 1994 Respiratory respiratory effort/rhythm Overall: normal rate 02/23/2017 None Full Exam - General 1994 Cardiovascular auscultation of heart Overall: regular rate 02/23/2017 None Full Exam - General 1994 Cardiovascular auscultation of heart Overall: normal heart sounds 02/23/2017 None Full Exam - General 1994 Musculoskeletal lower extremity Overall: full strength in LLE 02/23/2017 None Full Exam - General 1994 Musculoskeletal lower extremity Overall: normal LLE bulk and tone 02/23/2017 None Full Exam - General 1994 Musculoskeletal gait and station Overall: normal gait 02/23/2017 None Full Exam - General 1994 Musculoskeletal gait and station Overall: normal station 02/23/2017 None Full Exam - General 1994 Musculoskeletal head and neck Overall: head atraumatic 02/23/2017 None Full Exam - General 1994 Neurologic cranial nerves Overall: crainial nerves 2 - 12 grossly intact 02/23/2017 None Full Exam - General 1994 Psychiatric orientation/consciousness Overall: oriented to person, place and time 02/23/2017 None Full Exam - General 1994 Psychiatric mood and affect Overall: normal mood and affect 02/23/2017 None Full Exam - General 1994 Psychiatric appearance Overall: well-groomed, good eye contact 02/23/2017 None Full Exam - General 1994 Integument inspection of skin Location: scalp 02/23/2017 1 cm scabbed area noted to the top of head - no erythema, warmth, or discharge noted Full Exam - General 1994 Musculoskeletal upper extremity Palpation - wrist: tender 02/23/2017 None Full Exam - General 1994 Musculoskeletal upper extremity ROM - wrist: pain with flexion 02/23/2017 None Full Exam - General 1994 Musculoskeletal upper extremity ROM - wrist: decreased extension 02/23/2017 None Full Exam - General 1994 Musculoskeletal upper extremity ROM - wrist: pain with radial bending 02/23/2017 None Full Exam - General 1994 Constitutional general appearance Overall: well developed 01/26/2017 None Full Exam - General 1994 Constitutional general appearance Overall: in no acute distress 01/26/2017 None Full Exam - General 1994 Constitutional general appearance Overall: well nourished 01/26/2017 None Full Exam - General 1994 Eyes conjunctiva /eyelids Overall: conjunctiva clear 01/26/2017 None Full Exam - General 1994 Eyes conjunctiva /eyelids Overall: eyelids normal 01/26/2017 None Full Exam - General 1994 Ears/Nose/Throat lips/teeth/gingiva Overall: benign lips 01/26/2017 None Full Exam - General 1994 Ears/Nose/Throat oral cavity/pharynx/larynx Overall: oral mucosa clear 01/26/2017 None Full Exam - General 1994 Respiratory respiratory effort/rhythm Overall: no retractions 01/26/2017 None Full Exam - General 1994 Respiratory respiratory effort/rhythm Overall: normal rate 01/26/2017 None Full Exam - General 1994 Respiratory auscultation Overall: breath sounds clear bilaterally 01/26/2017 None Full Exam - General 1994 Cardiovascular auscultation of heart Overall: regular rate 01/26/2017 None Full Exam - General 1994 Cardiovascular auscultation of heart Overall: normal heart sounds 01/26/2017 None Full Exam - General 1994 Musculoskeletal head and neck Overall: head atraumatic 01/26/2017 None Full Exam - General 1994 Musculoskeletal spine, ribs and pelvis Sacroiliac joints: tender right sacroiliac joint 01/26/2017 None Full Exam - General 1994 Musculoskeletal lower extremity ROM - ankle: pain with ROM 01/26/2017 None Full Exam - General 1994 Integument inspection of skin Location: back 01/26/2017 mid, lateral - tick bite with mild erythema Full Exam - General 1994 Neurologic cranial nerves Overall: crainial nerves 2 - 12 grossly intact 01/26/2017 None Full Exam - General 1994 Psychiatric orientation/consciousness Overall: oriented to person, place and time 01/26/2017 None Full Exam - General 1994 Psychiatric mood and affect Overall: normal mood and affect 01/26/2017 None Full Exam - General 1994 Psychiatric appearance Overall: well-groomed, good eye contact 01/26/2017 None Full Exam - General 1994 Constitutional general appearance Overall: well developed 01/09/2017 None Full Exam - General 1994 Constitutional general appearance Overall: in no acute distress 01/09/2017 None Full Exam - General 1994 Constitutional general appearance Overall: well nourished 01/09/2017 None Full Exam - General 1994 Eyes conjunctiva /eyelids Overall: conjunctiva clear 01/09/2017 None Full Exam - General 1994 Eyes conjunctiva /eyelids Overall: eyelids normal 01/09/2017 None Full Exam - General 1994 Ears/Nose/Throat lips/teeth/gingiva Overall: benign lips 01/09/2017 None Full Exam - General 1994 Ears/Nose/Throat oral cavity/pharynx/larynx Overall: oral mucosa clear 01/09/2017 None Full Exam - General 1994 Ears/Nose/Throat oral cavity/pharynx/larynx Overall: oropharyngeal mucosa clear 01/09/2017 None Full Exam - General 1994 Respiratory respiratory effort/rhythm Overall: no retractions 01/09/2017 None Full Exam - General 1994 Respiratory respiratory effort/rhythm Overall: normal rate 01/09/2017 None Full Exam - General 1994 Respiratory auscultation Overall: breath sounds clear bilaterally 01/09/2017 None Full Exam - General 1994 Cardiovascular auscultation of heart Overall: regular rate 01/09/2017 None Full Exam - General 1994 Cardiovascular auscultation of heart Overall: normal heart sounds 01/09/2017 None Full Exam - General 1994 Musculoskeletal head and neck Overall: head atraumatic 01/09/2017 None Full Exam - General 1994 Musculoskeletal gait and station Overall: normal gait 01/09/2017 None Full Exam - General 1994 Musculoskeletal gait and station Overall: normal station 01/09/2017 None Full Exam - General 1994 Musculoskeletal lower extremity Overall: full strength in LLE 01/09/2017 None Full Exam - General 1994 Musculoskeletal lower extremity Overall: normal LLE bulk and tone 01/09/2017 None Full Exam - General 1994 Neurologic cranial nerves Overall: crainial nerves 2 - 12 grossly intact 01/09/2017 None Full Exam - General 1994 Psychiatric orientation/consciousness Overall: oriented to person, place and time 01/09/2017 None Full Exam - General 1994 Psychiatric mood and affect Overall: normal mood and affect 01/09/2017 None Full Exam - General 1994 Psychiatric appearance Overall: well-groomed, good eye contact 01/09/2017 None Full Exam - General 1994 Constitutional general appearance Overall: well developed 10/07/2016 None Full Exam - General 1994 Constitutional general appearance Overall: in no acute distress 10/07/2016 None Full Exam - General 1994 Constitutional general appearance Overall: well nourished 10/07/2016 None Full Exam - General 1994 Eyes conjunctiva /eyelids Overall: conjunctiva clear 10/07/2016 None Full Exam - General 1994 Eyes conjunctiva /eyelids Overall: cornea clear 10/07/2016 None Full Exam - General 1994 Eyes conjunctiva /eyelids Overall: eyelids normal 10/07/2016 None Full Exam - General 1994 Eyes pupils and irises Overall: pupils equal, round, reactive to light and accomodation 10/07/2016 None Full Exam - General 1994 Ears/Nose/Throat otoscopic exam Overall: external auditory canals clear 10/07/2016 None Full Exam - General 1994 Ears/Nose/Throat otoscopic exam Overall: tympanic membranes clear 10/07/2016 None Full Exam - General 1994 Ears/Nose/Throat oral cavity/pharynx/larynx Overall: oral mucosa clear 10/07/2016 None Full Exam - General 1994 Ears/Nose/Throat oral cavity/pharynx/larynx Overall: oropharyngeal mucosa clear 10/07/2016 None Full Exam - General 1994 Ears/Nose/Throat oral cavity/pharynx/larynx Overall: no masses 10/07/2016 None Full Exam - General 1994 Respiratory auscultation Overall: breath sounds clear bilaterally 10/07/2016 None Full Exam - General 1994 Respiratory respiratory effort/rhythm Overall: no retractions 10/07/2016 None Full Exam - General 1994 Respiratory respiratory effort/rhythm Overall: normal rate 10/07/2016 None Full Exam - General 1994 Cardiovascular auscultation of heart Overall: regular rate 10/07/2016 None Full Exam - General 1994 Cardiovascular auscultation of heart Overall: normal heart sounds 10/07/2016 None Full Exam - General 1994 Cardiovascular auscultation of heart Overall: no murmurs 10/07/2016 None Full Exam - General 1994 Abdomen abdominal exam Overall: no tenderness 10/07/2016 None Full Exam - General 1994 Abdomen abdominal exam Overall: normal bowel sounds 10/07/2016 None Full Exam - General 1994 Musculoskeletal gait and station Overall: normal gait 10/07/2016 None Full Exam - General 1994 Musculoskeletal gait and station Overall: normal station 10/07/2016 None Full Exam - General 1994 Musculoskeletal head and neck Overall: head atraumatic 10/07/2016 None Full Exam - General 1994 Musculoskeletal head and neck Overall: cervical spine benign 10/07/2016 None Full Exam - General 1994 Neurologic deep tendon reflexes Overall: deep tendon reflexes intact 10/07/2016 None Full Exam - General 1994 Neurologic cranial nerves Overall: crainial nerves 2 - 12 grossly intact 10/07/2016 None Full Exam - General 1994 Psychiatric orientation/consciousness Overall: oriented to person, place and time 10/07/2016 None Full Exam - General 1994 Integument inspection of skin Location: abdomen 10/07/2016 lipomas over epigastric region Full Exam - General 1994 Constitutional general appearance Overall: well developed 04/01/2016 None Full Exam - General 1994 Constitutional general appearance Overall: in no acute distress 04/01/2016 None Full Exam - General 1994 Constitutional general appearance Overall: well nourished 04/01/2016 None Full Exam - General 1994 Eyes conjunctiva /eyelids Overall: conjunctiva clear 04/01/2016 None Full Exam - General 1994 Eyes conjunctiva /eyelids Overall: cornea clear 04/01/2016 None Full Exam - General 1994 Eyes conjunctiva /eyelids Overall: eyelids normal 04/01/2016 None Full Exam - General 1994 Eyes pupils and irises Overall: pupils equal, round, reactive to light and accomodation 04/01/2016 None Full Exam - General 1994 Ears/Nose/Throat otoscopic exam Overall: external auditory canals clear 04/01/2016 None Full Exam - General 1994 Ears/Nose/Throat otoscopic exam Overall: tympanic membranes clear 04/01/2016 None Full Exam - General 1994 Ears/Nose/Throat oral cavity/pharynx/larynx Overall: oral mucosa clear 04/01/2016 None Full Exam - General 1994 Ears/Nose/Throat oral cavity/pharynx/larynx Overall: oropharyngeal mucosa clear 04/01/2016 None Full Exam - General 1994 Ears/Nose/Throat oral cavity/pharynx/larynx Overall: no masses 04/01/2016 None Full Exam - General 1994 Respiratory auscultation Overall: breath sounds clear bilaterally 04/01/2016 None Full Exam - General 1994 Respiratory respiratory effort/rhythm Overall: no retractions 04/01/2016 None Full Exam - General 1994 Respiratory respiratory effort/rhythm Overall: normal rate 04/01/2016 None Full Exam - General 1994 Cardiovascular auscultation of heart Overall: regular rate 04/01/2016 None Full Exam - General 1994 Cardiovascular auscultation of heart Overall: normal heart sounds 04/01/2016 None Full Exam - General 1994 Cardiovascular auscultation of heart Overall: no murmurs 04/01/2016 None Full Exam - General 1994 Abdomen abdominal exam Overall: no tenderness 04/01/2016 None Full Exam - General 1994 Abdomen abdominal exam Overall: normal bowel sounds 04/01/2016 None Full Exam - General 1994 Musculoskeletal gait and station Overall: normal gait 04/01/2016 None Full Exam - General 1994 Musculoskeletal gait and station Overall: normal station 04/01/2016 None Full Exam - General 1994 Musculoskeletal head and neck Overall: head atraumatic 04/01/2016 None Full Exam - General 1994 Musculoskeletal head and neck Overall: cervical spine benign 04/01/2016 None Full Exam - General 1994 Integument inspection of skin Location: abdomen 04/01/2016 cyst noted to right upper abdomen just below ribs-nontender, movable Full Exam - General 1994 Neurologic deep tendon reflexes Overall: deep tendon reflexes intact 04/01/2016 None Full Exam - General 1994 Neurologic cranial nerves Overall: crainial nerves 2 - 12 grossly intact 04/01/2016 None Full Exam - General 1994 Psychiatric orientation/consciousness Overall: oriented to person, place and time 04/01/2016 None Full Exam - General 1994 Constitutional general appearance Overall: well developed 12/03/2015 None Full Exam - General 1994 Constitutional general appearance Overall: in no acute distress 12/03/2015 None Full Exam - General 1994 Constitutional general appearance Overall: well nourished 12/03/2015 None Full Exam - General 1994 Eyes conjunctiva /eyelids Overall: conjunctiva clear 12/03/2015 None Full Exam - General 1994 Eyes conjunctiva /eyelids Overall: cornea clear 12/03/2015 None Full Exam - General 1994 Eyes conjunctiva /eyelids Overall: eyelids normal 12/03/2015 None Full Exam - General 1994 Eyes pupils and irises Overall: pupils equal, round, reactive to light and accomodation 12/03/2015 None Full Exam - General 1994 Ears/Nose/Throat otoscopic exam Overall: external auditory canals clear 12/03/2015 None Full Exam - General 1994 Ears/Nose/Throat otoscopic exam Overall: tympanic membranes clear 12/03/2015 None Full Exam - General 1994 Ears/Nose/Throat oral cavity/pharynx/larynx Overall: oral mucosa clear 12/03/2015 None Full Exam - General 1994 Ears/Nose/Throat oral cavity/pharynx/larynx Overall: oropharyngeal mucosa clear 12/03/2015 None Full Exam - General 1994 Ears/Nose/Throat oral cavity/pharynx/larynx Overall: no masses 12/03/2015 None Full Exam - General 1994 Respiratory auscultation Overall: breath sounds clear bilaterally 12/03/2015 None Full Exam - General 1994 Respiratory respiratory effort/rhythm Overall: no retractions 12/03/2015 None Full Exam - General 1994 Respiratory respiratory effort/rhythm Overall: normal rate 12/03/2015 None Full Exam - General 1994 Cardiovascular auscultation of heart Overall: regular rate 12/03/2015 None Full Exam - General 1994 Cardiovascular auscultation of heart Overall: normal heart sounds 12/03/2015 None Full Exam - General 1994 Cardiovascular auscultation of heart Overall: no murmurs 12/03/2015 None Full Exam - General 1994 Abdomen abdominal exam Overall: no tenderness 12/03/2015 None Full Exam - General 1994 Abdomen abdominal exam Overall: normal bowel sounds 12/03/2015 None Full Exam - General 1994 Musculoskeletal gait and station Overall: normal gait 12/03/2015 None Full Exam - General 1994 Musculoskeletal gait and station Overall: normal station 12/03/2015 None Full Exam - General 1994 Musculoskeletal head and neck Overall: head atraumatic 12/03/2015 None Full Exam - General 1994 Musculoskeletal head and neck Overall: cervical spine benign 12/03/2015 None Full Exam - General 1994 Integument inspection of skin Location: abdomen 12/03/2015 cyst noted to right upper abdomen just below ribs-nontender, movable Full Exam - General 1994 Neurologic deep tendon reflexes Overall: deep tendon reflexes intact 12/03/2015 None Full Exam - General 1994 Neurologic cranial nerves Overall: crainial nerves 2 - 12 grossly intact 12/03/2015 None Full Exam - General 1994 Psychiatric orientation/consciousness Overall: oriented to person, place and time 12/03/2015 None Full Exam - General 1994 Constitutional general appearance Overall: well developed 11/22/2015 None Full Exam - General 1994 Constitutional general appearance Overall: in no acute distress 11/22/2015 None Full Exam - General 1994 Constitutional general appearance Overall: well nourished 11/22/2015 None Full Exam - General 1994 Eyes conjunctiva /eyelids Overall: conjunctiva clear 11/22/2015 None Full Exam - General 1994 Eyes conjunctiva /eyelids Overall: cornea clear 11/22/2015 None Full Exam - General 1994 Eyes conjunctiva /eyelids Overall: eyelids normal 11/22/2015 None Full Exam - General 1994 Eyes pupils and irises Overall: pupils equal, round, reactive to light and accomodation 11/22/2015 None Full Exam - General 1994 Ears/Nose/Throat oral cavity/pharynx/larynx Overall: oral mucosa clear 11/22/2015 None Full Exam - General 1994 Respiratory respiratory effort/rhythm Overall: no retractions 11/22/2015 None Full Exam - General 1994 Respiratory respiratory effort/rhythm Overall: normal rate 11/22/2015 None Full Exam - General 1994 Musculoskeletal gait and station Overall: normal gait 11/22/2015 None Full Exam - General 1994 Musculoskeletal gait and station Overall: normal station 11/22/2015 None Full Exam - General 1994 Musculoskeletal head and neck Overall: head atraumatic 11/22/2015 None Full Exam - General 1994 Neurologic cranial nerves Overall: crainial nerves 2 - 12 grossly intact 11/22/2015 None Full Exam - General 1994 Psychiatric orientation/consciousness Overall: oriented to person, place and time 11/22/2015 None Full Exam - General 1994 Ears/Nose/Throat lips/teeth/gingiva Overall: benign lips 11/22/2015 None Full Exam - General 1994 Musculoskeletal lower extremity Inspection - knee: swelling 11/22/2015 None Full Exam - General 1994 Musculoskeletal lower extremity Palpation - knee: small effusion 11/22/2015 None Full Exam - General 1994 Musculoskeletal lower extremity ROM - knee: pain with flexion 11/22/2015 None Full Exam - General 1994 Psychiatric mood and affect Overall: normal mood and affect 11/22/2015 None Full Exam - General 1994 Psychiatric appearance Overall: well-groomed, good eye contact 11/22/2015 None Full Exam - General 1994 Constitutional general appearance Overall: well developed 08/29/2015 None Full Exam - General 1994 Constitutional general appearance Overall: in no acute distress 08/29/2015 None Full Exam - General 1994 Constitutional general appearance Overall: well nourished 08/29/2015 None Full Exam - General 1994 Eyes conjunctiva /eyelids Overall: conjunctiva clear 08/29/2015 None Full Exam - General 1994 Eyes conjunctiva /eyelids Overall: cornea clear 08/29/2015 None Full Exam - General 1994 Eyes conjunctiva /eyelids Overall: eyelids normal 08/29/2015 None Full Exam - General 1994 Eyes pupils and irises Overall: pupils equal, round, reactive to light and accomodation 08/29/2015 None Full Exam - General 1994 Ears/Nose/Throat oral cavity/pharynx/larynx Overall: oral mucosa clear 08/29/2015 None Full Exam - General 1994 Ears/Nose/Throat oral cavity/pharynx/larynx Overall: oropharyngeal mucosa clear 08/29/2015 None Full Exam - General 1994 Ears/Nose/Throat oral cavity/pharynx/larynx Overall: no masses 08/29/2015 None Full Exam - General 1994 Respiratory auscultation Overall: breath sounds clear bilaterally 08/29/2015 None Full Exam - General 1994 Respiratory respiratory effort/rhythm Overall: no retractions 08/29/2015 None Full Exam - General 1994 Respiratory respiratory effort/rhythm Overall: normal rate 08/29/2015 None Full Exam - General 1994 Cardiovascular auscultation of heart Overall: regular rate 08/29/2015 None Full Exam - General 1994 Cardiovascular auscultation of heart Overall: normal heart sounds 08/29/2015 None Full Exam - General 1994 Cardiovascular auscultation of heart Overall: no murmurs 08/29/2015 None Full Exam - General 1994 Musculoskeletal gait and station Overall: normal gait 08/29/2015 None Full Exam - General 1994 Musculoskeletal gait and station Overall: normal station 08/29/2015 None Full Exam - General 1994 Musculoskeletal head and neck Overall: head atraumatic 08/29/2015 None Full Exam - General 1994 Musculoskeletal head and neck Overall: cervical spine benign 08/29/2015 None Full Exam - General 1994 Integument inspection of skin Location: abdomen 08/29/2015 cyst noted to right upper abdomen just below ribs-nontender, movable Full Exam - General 1994 Neurologic deep tendon reflexes Overall: deep tendon reflexes intact 08/29/2015 None Full Exam - General 1994 Neurologic cranial nerves Overall: crainial nerves 2 - 12 grossly intact 08/29/2015 None Full Exam - General 1994 Psychiatric orientation/consciousness Overall: oriented to person, place and time 08/29/2015 None Full Exam - General 1994 Ears/Nose/Throat otoscopic exam External auditory canal: partial cerumen occlusion 08/29/2015 None Full Exam - General 1994 Ears/Nose/Throat otoscopic exam Tympanic membrane: air- fluid level 08/29/2015 None Full Exam - General 1994 Constitutional general appearance Overall: well developed 02/28/2015 None Full Exam - General 1994 Constitutional general appearance Overall: in no acute distress 02/28/2015 None Full Exam - General 1994 Constitutional general appearance Overall: well nourished 02/28/2015 None Full Exam - General 1994 Eyes conjunctiva /eyelids Overall: conjunctiva clear 02/28/2015 None Full Exam - General 1994 Eyes conjunctiva /eyelids Overall: cornea clear 02/28/2015 None Full Exam - General 1994 Eyes conjunctiva /eyelids Overall: eyelids normal 02/28/2015 None Full Exam - General 1994 Eyes pupils and irises Overall: pupils equal, round, reactive to light and accomodation 02/28/2015 None Full Exam - General 1994 Ears/Nose/Throat otoscopic exam Overall: external auditory canals clear 02/28/2015 None Full Exam - General 1994 Ears/Nose/Throat otoscopic exam Overall: tympanic membranes clear 02/28/2015 None Full Exam - General 1994 Ears/Nose/Throat oral cavity/pharynx/larynx Overall: oral mucosa clear 02/28/2015 None Full Exam - General 1994 Ears/Nose/Throat oral cavity/pharynx/larynx Overall: oropharyngeal mucosa clear 02/28/2015 None Full Exam - General 1994 Ears/Nose/Throat oral cavity/pharynx/larynx Overall: no masses 02/28/2015 None Full Exam - General 1994 Respiratory auscultation Overall: breath sounds clear bilaterally 02/28/2015 None Full Exam - General 1994 Respiratory respiratory effort/rhythm Overall: no retractions 02/28/2015 None Full Exam - General 1994 Respiratory respiratory effort/rhythm Overall: normal rate 02/28/2015 None Full Exam - General 1994 Cardiovascular auscultation of heart Overall: regular rate 02/28/2015 None Full Exam - General 1994 Cardiovascular auscultation of heart Overall: normal heart sounds 02/28/2015 None Full Exam - General 1994 Cardiovascular auscultation of heart Overall: no murmurs 02/28/2015 None Full Exam - General 1994 Abdomen abdominal exam Overall: no tenderness 02/28/2015 None Full Exam - General 1994 Abdomen abdominal exam Overall: normal bowel sounds 02/28/2015 None Full Exam - General 1994 Musculoskeletal gait and station Overall: normal gait 02/28/2015 None Full Exam - General 1994 Musculoskeletal gait and station Overall: normal station 02/28/2015 None Full Exam - General 1994 Musculoskeletal head and neck Overall: head atraumatic 02/28/2015 None Full Exam - General 1994 Musculoskeletal head and neck Overall: cervical spine benign 02/28/2015 None Full Exam - General 1994 Integument inspection of skin Location: abdomen 02/28/2015 cyst noted to right upper abdomen just below ribs-nontender, movable Full Exam - General 1994 Neurologic deep tendon reflexes Overall: deep tendon reflexes intact 02/28/2015 None Full Exam - General 1994 Neurologic cranial nerves Overall: crainial nerves 2 - 12 grossly intact 02/28/2015 None Full Exam - General 1994 Psychiatric orientation/consciousness Overall: oriented to person, place and time 02/28/2015 None Full Exam - General 1994 Constitutional general appearance Overall: well developed 11/10/2014 None Full Exam - General 1994 Constitutional general appearance Overall: in no acute distress 11/10/2014 None Full Exam - General 1994 Constitutional general appearance Overall: well nourished 11/10/2014 None Full Exam - General 1994 Psychiatric orientation/consciousness Overall: oriented to person, place and time 11/10/2014 None Full Exam - General 1994 Neurologic deep tendon reflexes Overall: deep tendon reflexes intact 11/10/2014 None Full Exam - General 1994 Neurologic cranial nerves Overall: crainial nerves 2 - 12 grossly intact 11/10/2014 None Full Exam - General 1994 Integument inspection of skin Location: abdomen 11/10/2014 cyst noted to right upper abdomen just below ribs-nontender, movable Full Exam - General 1994 Musculoskeletal gait and station Overall: normal station 11/10/2014 None Full Exam - General 1994 Musculoskeletal gait and station Overall: normal gait 11/10/2014 None Full Exam - General 1994 Musculoskeletal head and neck Overall: cervical spine benign 11/10/2014 None Full Exam - General 1994 Musculoskeletal head and neck Overall: head atraumatic 11/10/2014 None Full Exam - General 1994 Abdomen abdominal exam Overall: no tenderness 11/10/2014 None Full Exam - General 1994 Abdomen abdominal exam Overall: normal bowel sounds 11/10/2014 None Full Exam - General 1994 Cardiovascular auscultation of heart Overall: regular rate 11/10/2014 None Full Exam - General 1994 Cardiovascular auscultation of heart Overall: normal heart sounds 11/10/2014 None Full Exam - General 1994 Cardiovascular auscultation of heart Overall: no murmurs 11/10/2014 None Full Exam - General 1994 Respiratory auscultation Overall: breath sounds clear bilaterally 11/10/2014 None Full Exam - General 1994 Respiratory respiratory effort/rhythm Overall: normal rate 11/10/2014 None Full Exam - General 1994 Respiratory respiratory effort/rhythm Overall: no retractions 11/10/2014 None Full Exam - General 1994 Ears/Nose/Throat otoscopic exam Overall: tympanic membranes clear 11/10/2014 None Full Exam - General 1994 Ears/Nose/Throat otoscopic exam Overall: external auditory canals clear 11/10/2014 None Full Exam - General 1994 Ears/Nose/Throat oral cavity/pharynx/larynx Overall: oropharyngeal mucosa clear 11/10/2014 None Full Exam - General 1994 Ears/Nose/Throat oral cavity/pharynx/larynx Overall: no masses 11/10/2014 None Full Exam - General 1994 Ears/Nose/Throat oral cavity/pharynx/larynx Overall: oral mucosa clear 11/10/2014 None Full Exam - General 1994 Eyes conjunctiva /eyelids Overall: conjunctiva clear 11/10/2014 None Full Exam - General 1994 Eyes conjunctiva /eyelids Overall: eyelids normal 11/10/2014 None Full Exam - General 1994 Eyes conjunctiva /eyelids Overall: cornea clear 11/10/2014 None Full Exam - General 1994 Eyes pupils and irises Overall: pupils equal, round, reactive to light and accomodation 11/10/2014 None Procedures Procedure Codes Date ADMIN INFLUENZA VIRUS VAC CPT-4: G0008 04/15/2018 FLU VAC NO PRSV 4 KAIN 3 YRS+ CPT-4: 03437 04/15/2018 PPPS, INITIAL VISIT CPT-4: G0438 12/08/2017 ADMIN INFLUENZA VIRUS VAC CPT-4: G0008 04/07/2017 FLU VAC NO PRSV 4 KAIN 3 YRS+ CPT-4: 08937 04/07/2017 DRAIN/INJECT JOINT/BURSA CPT-4: 72729 01/26/2017 REMOVE SPINE LAMINA 1 LMBR CPT-4: 85816 Unknown Vital Signs Date Vital 09/08/2018 Blood Pressure 1: 142/78 Code : 8480-6 BMI: 29.0 Code : 90007-3 Heart Rate 1 : 65 bpm Height: 5'8" SpO2: 98% Weight: 191 lbs 06/10/2018 Blood Pressure 1: 138/72 Code : 8480-6 BMI: 29.6 Code : 80395-3 Heart Rate 1 : 80 bpm Height: 5'8" SpO2: 98% Weight: 195 lbs 05/10/2018 Blood Pressure 1: 150/80 Code : 8480-6 BMI: 29.5 Code : 45636-8 Heart Rate 1 : 72 bpm Height: 5'8" SpO2: 95% Weight: 194 lbs 04/01/2018 Blood Pressure 1: 140/72 Code : 8480-6 BMI: 29.2 Code : 60239-2 Heart Rate 1 : 75 bpm Height: 5'8" SpO2: 98% Weight: 192 lbs 02/04/2018 Blood Pressure 1: 130/72 Code : 8480-6 BMI: 29.2 Code : 92751-7 Heart Rate 1 : 74 bpm Height: 5'8" SpO2: 97% Weight: 192 lbs 01/12/2018 Blood Pressure 1: 134/72 Code : 8480-6 BMI: 29.6 Code : 50566-6 Heart Rate 1 : 77 bpm Height: 5'8" SpO2: 98% Weight: 195 lbs 11/18/2017 Blood Pressure 1: 122/74 Code : 8480-6 BMI: 30.6 Code : 42203-7 Heart Rate 1 : 81 bpm Height: 5'8" SpO2: 97% Weight: 201 lbs 10/27/2017 Blood Pressure 1: 146/74 Code : 8480-6 BMI: 31.3 Code : 75620-6 Heart Rate 1 : 87 bpm Height: 5'8" SpO2: 93% Weight: 206 lbs 07/29/2017 Blood Pressure 1: 130/76 Code : 8480-6 BMI: 30.9 Code : 19248-2 Heart Rate 1 : 91 bpm Height: 5'8" SpO2: 98% Weight: 203 lbs 06/30/2017 Blood Pressure 1: 122/64 Code : 8480-6 BMI: 30.3 Code : 24842-6 Heart Rate 1 : 82 bpm Height: 5'8" SpO2: 96% Weight: 199 lbs 05/19/2017 Blood Pressure 1: 136/68 Code : 8480-6 BMI: 30.1 Code : 59522-8 Heart Rate 1 : 83 bpm Height: 5'8" SpO2: 94% Weight: 198 lbs 04/07/2017 Blood Pressure 1: 142/74 Code : 8480-6 BMI: 29.3 Code : 46267-7 Heart Rate 1 : 79 bpm Height: 5'8" SpO2: 96% Weight: 193 lbs 02/23/2017 Blood Pressure 1: 150/86 Code : 8480-6 BMI: 28.9 Code : 98284-8 Heart Rate 1 : 71 bpm Height: 5'8" SpO2: 95% Weight: 190 lbs 01/26/2017 Blood Pressure 1: 118/70 Code : 8480-6 BMI: 29.3 Code : 30646-0 Heart Rate 1 : 75 bpm Height: 5'8" SpO2: 95% Temperature: 36.7 (C) / 98.1 (F) Weight: 193 lbs 01/09/2017 Blood Pressure 1: 144/78 Code : 8480-6 BMI: 29.3 Code : 47044-9 Heart Rate 1 : 84 bpm Height: 5'8" SpO2: 98% Weight: 193 lbs 10/07/2016 Blood Pressure 1: 122/74 Code : 8480-6 BMI: 30.0 Code : 54737-0 Heart Rate 1 : 82 bpm Height: 5'8" SpO2: 97% Weight: 197 lbs 04/01/2016 Blood Pressure 1: 130/76 Code : 8480-6 BMI: 30.6 Code : 01512-8 Heart Rate 1 : 71 bpm Height: 5'8" SpO2: 97% Weight: 201 lbs 8 oz 12/03/2015 Blood Pressure 1: 118/68 Code : 8480-6 Heart Rate 1: 73 bpm Height: SpO2: 98% Weight: 11/22/2015 Blood Pressure 1: 126/72 Code : 8480-6 BMI: 30.9 Code : 48775-0 Heart Rate 1 : 75 bpm Height: 5'8" SpO2: 95% Weight: 203 lbs 08/29/2015 Blood Pressure 1: 126/68 Code : 8480-6 BMI: 30.4 Code : 18511-8 Heart Rate 1 : 92 bpm Height: 5'8" SpO2: 97% Temperature: 36.9 (C) / 98.5 (F) Weight: 200 lbs 02/28/2015 Blood Pressure 1: 120/72 Code : 8480-6 BMI: 30.6 Code : 01814-7 Heart Rate 1 : 74 bpm Height: 5'8" SpO2: 96% Weight: 201 lbs 11/10/2014 Blood Pressure 1: 118/62 Code : 8480-6 BMI: 30.4 Code : 76471-3 Heart Rate 1 : 64 bpm Height: 5'8" Weight: 200 lbs Functional Status No Functional Status data History of Present Illness Symptom Name Status Result Effective Date Notes Location on the right 09/08/2018 None Quality improving None Onset and Resolution sudden in onset 09/08/2018 None Onset of Symptom 3 months ago 09/08/2018 None Pertinent Findings Denies decreased range of motion 09/08/2018 None Pertinent Findings pain at rest 09/08/2018 None Pertinent Findings pain with movement 09/08/2018 None Quality disrupted sleep 09/08/2018 sleeps 2-3 hours at a time Quality intermittent 09/08/2018 None Onset and Resolution ongoing 09/08/2018 None _ gastrointestinal complaints 06/10/2018 None _ Other: chest pain 06/10/2018 None Quality acute 2017 None Pertinent Findings Denies fever 06/10/2018 None Pertinent Findings Denies pain 06/10/2018 None hip pain Location on the right 05/10/2018 None hip pain Quality improving 05/10/2018 None hip pain Onset and Resolution sudden in onset 05/10/2018 None hip pain Onset of Symptom 3 months ago 05/10/2018 None hip pain Pertinent Findings Denies decreased range of motion 05/10/2018 None hip pain Pertinent Findings pain at rest 05/10/2018 None hip pain Pertinent Findings pain with movement 05/10/2018 None insomnia Quality intermittent 05/10/2018 None insomnia Onset and Resolution ongoing 05/10/2018 None insomnia Quality disrupted sleep 05/10/2018 sleeps 2-3 hours at a time back pain Location in the right lower back area 04/01/2018 None back pain Location in the left lower back area 04/01/2018 None back pain Quality aching 04/01/2018 None back pain Quality sharp 04/01/2018 None back pain Quality constant 04/01/2018 None back pain Onset and Resolution sudden in onset 04/01/2018 None back pain Onset of Symptom 2 months ago 04/01/2018 None back pain Frequency of Episodes daily 04/01/2018 None Hospital Follow Up _ gastrointestinal complaints 02/04/2018 None Hospital Follow Up Pertinent Findings Denies fever 02/04/2018 None Hospital Follow Up Pertinent Findings pain 02/04/2018 None hypertension Quality chronic 01/12/2018 None hypertension Quality primary hypertension 01/12/2018 None hypertension Onset and Resolution ongoing 01/12/2018 None hypertension Onset of Symptom during adulthood 01/12/2018 None hypertension Blood Pressure Values patient checking blood pressure at home - did not bring in readings 01/12/2018 None hypertension Alleviating Factors medication 01/12/2018 None hypertension Pertinent Findings decreased energy 01/12/2018 None hypertension Pertinent Findings dizziness 01/12/2018 -occasional- has vertigo- has been stable for quite a while hypertension Pertinent Findings Denies dyspnea 01/12/2018 None hypertension Pertinent Findings edema 01/12/2018 -improved Annual Medicare Wellness Exam Alcohol Use does not drink any alcohol 12/08/2017 None Annual Medicare Wellness Exam Aspirin Use no 12/08/2017 None Annual Medicare Wellness Exam Blood Glucose (self reported) don't know 12/08/2017 None Annual Medicare Wellness Exam Blood Pressure (self reported ) borderline (120/80 - 139/89) 12/08/2017 None Annual Medicare Wellness Exam Cholesterol (self reported) don't know 12/08/2017 None Annual Medicare Wellness Exam Depression (last 6 months) some of the time 12/08/2017 None Annual Medicare Wellness Exam Depression or Hopelessness almost never 12/08/2017 None Annual Medicare Wellness Exam Describe Your Health good 12/08/2017 None Annual Medicare Wellness Exam Exercise Habits exercises 2-3 days per week 12/08/2017 None Annual Medicare Wellness Exam Handling Stress usually darrin effectively 12/08/2017 None Annual Medicare Wellness Exam Hemaglobin A-1C (self reported ) don't know 12/08/2017 None Annual Medicare Wellness Exam Hours of Sleep 7-8 12/08/2017 None Annual Medicare Wellness Exam Interaction with Friends yes 12/08/2017 None Annual Medicare Wellness Exam Interests & Pleasure most of the time 12/08/2017 None Annual Medicare Wellness Exam Life Satisfaction satisfied 12/08/2017 None Annual Medicare Wellness Exam Motor Vehicle Safety always fastens seat belt: y 12/08/2017 None Annual Medicare Wellness Exam Nutrition servings of vegetables / fruit per day: 3-5 12/08/2017 None Annual Medicare Wellness Exam Smoking and Tobacco Use non smoker 12/08/2017 None Annual Medicare Wellness Exam Social & Emotional Support usually 12/08/2017 None Annual Medicare Wellness Exam Stress some of the time 12/08/2017 None Annual Medicare Wellness Exam Sun Exposure protects skin when outdoors: n 12/08/2017 None hypertension Onset and Resolution ongoing 11/18/2017 None hypertension Onset of Symptom during adulthood 11/18/2017 None hypertension Blood Pressure Values patient checking blood pressure at home - did not bring in readings 11/18/2017 None hypertension Alleviating Factors medication 11/18/2017 None hypertension Pertinent Findings dizziness 11/18/2017 -occasional- has vertigo- has been stable for quite a while hypertension Pertinent Findings Denies dyspnea 11/18/2017 None hypertension Pertinent Findings edema 11/18/2017 -improved hypertension Quality chronic 11/18/2017 None hypertension Quality primary hypertension 11/18/2017 None hypertension Pertinent Findings decreased energy 11/18/2017 None low back pain Location on both sides 10/27/2017 None low back pain Quality intermittent 10/27/2017 None low back pain Quality stable 10/27/2017 None low back pain Onset and Resolution ongoing 10/27/2017 None low back pain Limitation on Activities allows weight bearing activity 10/27/2017 None low back pain Alleviating Factors medications 10/27/2017 None low back pain Alleviating Factors back brace 10/27/2017 None low back pain Exacerbating Factors changing position 10/27/2017 None low back pain Exacerbating Factors activity 10/27/2017 None hypertension Quality stable 10/27/2017 None hypertension Onset and Resolution ongoing 10/27/2017 None hypertension Onset of Symptom during adulthood 10/27/2017 None hypertension Blood Pressure Values patient checking blood pressure at home - did not bring in readings 10/27/2017 None hypertension Alleviating Factors medication 10/27/2017 None hypertension Pertinent Findings Denies dizziness 10/27/2017 -occasional- has vertigo- has been stable hypertension Pertinent Findings Denies dyspnea 10/27/2017 None hypertension Pertinent Findings edema 10/27/2017 -intermittent- some days are worse than others hypothyroid Onset and Resolution ongoing 10/27/2017 None hypothyroid Alleviating Factors medication 10/27/2017 None hyperlipidemia Onset and Resolution gradual in onset 10/27/2017 None hyperlipidemia Onset and Resolution ongoing 10/27/2017 None hyperlipidemia Onset of Symptom during adulthood 10/27/2017 None hyperlipidemia Alleviating Factors medication 10/27/2017 None hyperlipidemia Exacerbating Factors diet 10/27/2017 None hypertension Pertinent Findings Denies decreased energy 10/27/2017 None hypertension Pertinent Findings Denies anxiety 10/27/2017 None low back pain Location on both sides 07/29/2017 None low back pain Quality intermittent 07/29/2017 None low back pain Onset and Resolution ongoing 07/29/2017 None low back pain Limitation on Activities allows weight bearing activity 07/29/2017 None low back pain Alleviating Factors medications 07/29/2017 None low back pain Quality stable 07/29/2017 None low back pain Alleviating Factors back brace 07/29/2017 None low back pain Exacerbating Factors changing position 07/29/2017 None low back pain Exacerbating Factors activity 07/29/2017 None Hospital Follow Up _ Other: surgery 06/30/2017 None Hospital Follow Up Quality chronic illness 06/30/2017 None Hospital Follow Up Location spine 06/30/2017 None medication follow up Location oral intake 05/19/2017 None medication follow up Additional Comments medication use 05/19/2017 None medication follow up Additional Comments medication: _ 05/19/2017 None insomnia Quality acute 05/19/2017 None insomnia Quality difficulty falling asleep 05/19/2017 None insomnia Onset and Resolution ongoing 05/19/2017 None insomnia Severity moderate 05/19/2017 None insomnia Onset of Symptom _ months ago 05/19/2017 None insomnia Triggers no known associated factors 05/19/2017 None insomnia Pertinent Findings Denies depressed mood 05/19/2017 None insomnia Pertinent Findings Denies leg cramps 05/19/2017 None insomnia Pertinent Findings Denies restless leg 05/19/2017 None wrist pain Location on the right 04/07/2017 None wrist pain Quality sharp pain 04/07/2017 None wrist pain Quality constant 04/07/2017 None wrist pain Onset and Resolution sudden in onset 04/07/2017 None wrist pain Onset of Symptom 6 days ago 04/07/2017 None wrist pain Frequency of Episodes daily 04/07/2017 None wrist pain Pertinent Findings decreased range of motion 04/07/2017 None wrist pain Pertinent Findings pain with movement 04/07/2017 None wrist pain Pertinent Findings stiffness 04/07/2017 None hypertension Quality stable 04/07/2017 None hypertension Onset and Resolution ongoing 04/07/2017 None hypertension Onset of Symptom during adulthood 04/07/2017 None hypertension Blood Pressure Values patient checking blood pressure at home - did not bring in readings 04/07/2017 None hypertension Alleviating Factors medication 04/07/2017 None hypertension Pertinent Findings dizziness 04/07/2017 -occasional- has vertigo- has been stable hypertension Pertinent Findings Denies dyspnea 04/07/2017 None hypertension Pertinent Findings edema 04/07/2017 -intermittent- some days are worse than others hypothyroid Onset and Resolution ongoing 04/07/2017 None hypothyroid Alleviating Factors medication 04/07/2017 None knee pain Location on the left 04/07/2017 None knee pain Location on the right 04/07/2017 (little worse- has torn meniscus and a sprained ACL) knee pain Quality constant 04/07/2017 None knee pain Onset of Symptom months ago 04/07/2017 None knee pain Limitation on Activities allows weight bearing activity 04/07/2017 None knee pain Limitation on Activities moderately limits activities 04/07/2017 None knee pain Alleviating Factors rest 04/07/2017 None knee pain Exacerbating Factors exertion 04/07/2017 None knee pain Exacerbating Factors weight bearing 04/07/2017 None knee pain Pertinent Findings pain with movement 04/07/2017 None knee pain Pertinent Findings swelling 04/07/2017 None hyperlipidemia Onset and Resolution gradual in onset 04/07/2017 None hyperlipidemia Onset and Resolution ongoing 04/07/2017 None hyperlipidemia Onset of Symptom during adulthood 04/07/2017 None hyperlipidemia Alleviating Factors medication 04/07/2017 None hyperlipidemia Exacerbating Factors diet 04/07/2017 None vaccination against influenza Location deltoid-Lt 04/07/2017 None wrist pain Location on the right 02/23/2017 None wrist pain Quality sharp pain 02/23/2017 None wrist pain Quality constant 02/23/2017 None wrist pain Onset and Resolution sudden in onset 02/23/2017 None wrist pain Onset of Symptom 6 days ago 02/23/2017 None wrist pain Frequency of Episodes daily 02/23/2017 None wrist pain Mechanism of injury moderate energy 02/23/2017 None wrist pain Pertinent Findings decreased range of motion 02/23/2017 None wrist pain Pertinent Findings pain with movement 02/23/2017 None wrist pain Pertinent Findings stiffness 02/23/2017 None lower leg pain Location on the left 02/23/2017 None lower leg pain Location on the right 02/23/2017 None lower leg pain Quality cramping 02/23/2017 None lower leg pain Quality burning sensation 02/23/2017 None lower leg pain Quality constant 02/23/2017 None lower leg pain Onset and Resolution sudden in onset 02/23/2017 None lower leg pain Onset of Symptom 6 days ago 02/23/2017 None lower leg pain Frequency of Episodes daily 02/23/2017 None low back and leg pain Location nonfocal 01/26/2017 None low back and leg pain Quality dull pain 01/26/2017 None low back and leg pain Quality constant 01/26/2017 None low back and leg pain Quality worsening 01/26/2017 None low back and leg pain Quality aching 01/26/2017 None low back and leg pain Quality discomfort 01/26/2017 None low back and leg pain Onset and Resolution gradual in onset 01/26/2017 None low back and leg pain Onset of Symptom 3 months ago 01/26/2017 None low back and leg pain Limitation on Activities moderately limits activities 01/26/2017 None low back and leg pain Frequency of Episodes daily 01/26/2017 None low back and leg pain Location nonfocal 01/09/2017 None low back and leg pain Quality constant 01/09/2017 None low back and leg pain Quality aching 01/09/2017 None low back and leg pain Quality worsening 01/09/2017 None low back and leg pain Quality discomfort 01/09/2017 None low back and leg pain Quality dull pain 01/09/2017 None low back and leg pain Onset and Resolution gradual in onset 01/09/2017 None low back and leg pain Onset of Symptom 3 months ago 01/09/2017 None low back and leg pain Limitation on Activities moderately limits activities 01/09/2017 None low back and leg pain Frequency of Episodes daily 01/09/2017 None hypertension Quality stable 10/07/2016 None hypertension Onset and Resolution ongoing 10/07/2016 None hypertension Onset of Symptom during adulthood 10/07/2016 None hypertension Blood Pressure Values patient checking blood pressure at home - did not bring in readings 10/07/2016 None hypertension Alleviating Factors medication 10/07/2016 None hypertension Pertinent Findings dizziness 10/07/2016 -occasional- has vertigo- has been stable hypertension Pertinent Findings Denies dyspnea 10/07/2016 None hypertension Pertinent Findings edema 10/07/2016 -intermittent- some days are worse than others hypothyroid Onset and Resolution ongoing 10/07/2016 None hypothyroid Alleviating Factors medication 10/07/2016 None knee pain Location on the left 10/07/2016 None knee pain Location on the right 10/07/2016 (little worse- has torn meniscus and a sprained ACL) knee pain Quality constant 10/07/2016 None knee pain Onset of Symptom months ago 10/07/2016 None knee pain Limitation on Activities allows weight bearing activity 10/07/2016 None knee pain Limitation on Activities moderately limits activities 10/07/2016 None knee pain Alleviating Factors rest 10/07/2016 None knee pain Exacerbating Factors exertion 10/07/2016 None knee pain Exacerbating Factors weight bearing 10/07/2016 None knee pain Pertinent Findings pain with movement 10/07/2016 None knee pain Pertinent Findings swelling 10/07/2016 None hyperlipidemia Onset and Resolution gradual in onset 10/07/2016 None hyperlipidemia Onset and Resolution ongoing 10/07/2016 None hyperlipidemia Onset of Symptom during adulthood 10/07/2016 None hyperlipidemia Alleviating Factors medication 10/07/2016 None hyperlipidemia Exacerbating Factors diet 10/07/2016 None hypertension Quality stable 04/01/2016 None hypertension Onset and Resolution ongoing 04/01/2016 None hypertension Onset of Symptom during adulthood 04/01/2016 None hypertension Blood Pressure Values patient checking blood pressure at home - did not bring in readings 04/01/2016 None hypertension Alleviating Factors medication 04/01/2016 None hypertension Pertinent Findings dizziness 04/01/2016 only if she bends down and stands up quickly hypertension Pertinent Findings dyspnea 04/01/2016 None hypertension Pertinent Findings edema 04/01/2016 in bilateral knees- had swelling in her ankles this summer hypothyroid Onset and Resolution ongoing 04/01/2016 None hypothyroid Alleviating Factors medication 04/01/2016 None knee pain Location on the right 04/01/2016 (little worse- has torn meniscus and a sprained ACL) knee pain Alleviating Factors rest 04/01/2016 None knee pain Exacerbating Factors exertion 04/01/2016 None knee pain Exacerbating Factors weight bearing 04/01/2016 None constipation Onset and Resolution ongoing 04/01/2016 None constipation Onset of Symptom 1-2 years ago 04/01/2016 None constipation Alleviating Factors medication 04/01/2016 miralax PRN hyperlipidemia Onset and Resolution gradual in onset 04/01/2016 None hyperlipidemia Onset and Resolution ongoing 04/01/2016 None hyperlipidemia Onset of Symptom during adulthood 04/01/2016 None hyperlipidemia Alleviating Factors medication 04/01/2016 None hyperlipidemia Exacerbating Factors diet 04/01/2016 None knee pain Location on the left 04/01/2016 None knee pain Quality constant 04/01/2016 None knee pain Onset of Symptom months ago 04/01/2016 None knee pain Limitation on Activities allows weight bearing activity 04/01/2016 None knee pain Limitation on Activities moderately limits activities 04/01/2016 None knee pain Pertinent Findings swelling 04/01/2016 None knee pain Pertinent Findings pain with movement 04/01/2016 None hypertension Quality stable 12/03/2015 None hypertension Onset and Resolution ongoing 12/03/2015 None hypertension Onset of Symptom during adulthood 12/03/2015 None hypertension Blood Pressure Values patient checking blood pressure at home - did not bring in readings 12/03/2015 None hypertension Alleviating Factors medication 12/03/2015 None hypertension Pertinent Findings dizziness 12/03/2015 -states that she has vertigo hypertension Pertinent Findings dyspnea 12/03/2015 if she is in a hurry hypertension Pertinent Findings edema 12/03/2015 in the right leg hypothyroid Onset and Resolution ongoing 12/03/2015 None hypothyroid Alleviating Factors medication 12/03/2015 None constipation Quality every other day 12/03/2015 3-4 stools per week constipation Quality hard 12/03/2015 None constipation Onset and Resolution ongoing 12/03/2015 None constipation Onset of Symptom 1-2 years ago 12/03/2015 None constipation Quality worsening 12/03/2015 None constipation Alleviating Factors medication 12/03/2015 miralax knee pain Location on the right 12/03/2015 None knee pain Quality acute 12/03/2015 None knee pain Quality intermittent 12/03/2015 None knee pain Onset and Resolution sudden in onset 12/03/2015 None knee pain Onset of Symptom 1 months ago 12/03/2015 None knee pain Alleviating Factors joint immobilizer 12/03/2015 None knee pain Alleviating Factors rest 12/03/2015 None knee pain Exacerbating Factors exertion 12/03/2015 None knee pain Exacerbating Factors weight bearing 12/03/2015 None knee pain Location on the right 11/22/2015 None knee pain Quality sharp pain 11/22/2015 None knee pain Quality tenderness 11/22/2015 None knee pain Quality constant 11/22/2015 None knee pain Quality giving way 11/22/2015 None knee pain Onset and Resolution sudden in onset 11/22/2015 None knee pain Onset of Symptom 3 weeks ago 11/22/2015 None knee pain Frequency of Episodes daily 11/22/2015 None knee pain Mechanism of injury twisting 11/22/2015 None knee pain Alleviating Factors splint 11/22/2015 None hypertension Onset and Resolution ongoing 08/29/2015 None hypertension Onset of Symptom during adulthood 08/29/2015 None hypertension Blood Pressure Values patient checking blood pressure at home - did not bring in readings 08/29/2015 None hypertension Alleviating Factors medication 08/29/2015 None hypertension Pertinent Findings dizziness 08/29/2015 -states that she has vertigo hypothyroid Onset and Resolution ongoing 08/29/2015 None hypothyroid Alleviating Factors medication 08/29/2015 None cough Quality acute None cough Quality intermittent 08/29/2015 None hypertension Pertinent Findings dyspnea 08/29/2015 due to being sick hypertension Pertinent Findings edema 08/29/2015 "sometimes" hypertension Quality stable 08/29/2015 None cough Onset and Resolution ongoing 08/29/2015 None cough Onset of Symptom 3 weeks ago 08/29/2015 None cough Pertinent Findings chills 08/29/2015 None cough Pertinent Findings fever 08/29/2015 None cough Pertinent Findings muscle aches 08/29/2015 None cough Pertinent Findings weakness 08/29/2015 None cough Pertinent Findings vomiting 08/29/2015 None cough Pertinent Findings nausea 08/29/2015 None nausea Onset and Resolution ongoing 08/29/2015 None nausea Quality acute 08/29/2015 None nausea Pertinent Findings chills 08/29/2015 None nausea Pertinent Findings fever 08/29/2015 None nausea Pertinent Findings lethargy 08/29/2015 None nausea Pertinent Findings dyspnea 08/29/2015 None nausea Pertinent Findings cough 08/29/2015 None earache Location left ear 08/29/2015 None earache Quality acute 08/29/2015 None new lesion Location-Major on the abdomen 11/10/2014 right side new lesion Color flesh-colored 11/10/2014 None new lesion Onset of Symptom 3 weeks ago 11/10/2014 None new lesion Pertinent Findings Denies pain 11/10/2014 None new lesion Quality new 11/10/2014 None new lesion Onset and Resolution ongoing 11/10/2014 None new lesion Limitation on Activities moderately limits activities 11/10/2014 None new lesion Severity asymptomatic 11/10/2014 None new lesion Prior Treatments previously untreated 11/10/2014 None Advance Directives No Advance Directive data Encounters Encounter Performer Location Codes Date EST. PATIENT, LEVEL IV Diagnosis: Essential (primary) hypertension[ICD10: I10] Diagnosis: Low back pain[ICD10: M54.5] Diagnosis: Atrophy of thyroid (acquired)[ICD10: E03.4] Subha Hardy MD, [facility] CPT-4: 77549 09/08/2018 07315 EST. PATIENT, LEVEL III Diagnosis: Encounter for follow-up examination after completed treatment for conditions other than malignant neoplasm[ICD10: Z09] Stephy Hardy MD, [facility] CPT-4: 92043 06/10/2018 ([id number] EST. 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 PATIENT, LEVEL III Diagnosis: Low back pain[ICD10: M54.5] Diagnosis: Trochanteric bursitis, right hip[ICD10: M70.61] Stephy Hardy MD, [facility] CPT-4: 18470 04/01/2018 56662 EST. PATIENT, LEVEL III Diagnosis: Gastro-esophageal reflux disease without esophagitis[ICD10: K21.9] Diagnosis: Diverticulitis of large intestine without perforation or abscess without bleeding[ICD10: K57.32] Stephy Hardy MD, [facility] CPT-4: 50768 02/04/2018 ([id number]) 23708 EST. PATIENT, LEVEL IV Diagnosis: Essential (primary) hypertension[ICD10: I10] Diagnosis: Low back pain[ICD10: M54.5] Diagnosis: Other fatigue[ICD10: R53.83] Subha Hardy MD, [facility] CPT- 4: 02064 01/12/2018 ([id number]) 64015 EST. PATIENT, LEVEL III Diagnosis: Essential (primary) hypertension[ICD10: I10] Diagnosis: Other fatigue[ICD10: R53.83] Subha Hardy MD, [facility] CPT- 4: 14117 11/18/2017 ([id number]) 76072 EST. PATIENT, LEVEL IV Diagnosis: Essential (primary) hypertension[ICD10: I10] Diagnosis: Atrophy of thyroid (acquired)[ICD10: E03.4] Subha Hardy MD, [facility] CPT-4: 78208 10/27/2017 ([id number]) 87691 EST. PATIENT, LEVEL III Diagnosis: Essential (primary) hypertension[ICD10: I10] Subha Hardy MD, [facility] CPT-4: 56128 07/29/2017 ([id number]) 59741 EST. PATIENT, LEVEL IV Diagnosis: Essential (primary) hypertension[ICD10: I10] Diagnosis: Slow transit constipation[ICD10: K59.01] Subha Hardy MD, [facility] CPT-4: 01923 06/30/2017 ([id number]) 73971 EST. 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 PATIENT, LEVEL IV Diagnosis: Myalgia[ICD10: M79.1] Diagnosis: Pain in right wrist[ICD10: M25.531] Stephy Hardy MD, [facility] CPT-4: 47190 02/23/2017 [id number] EST. PATIENT, LEVEL IV Diagnosis: Pain in left ankle and joints of left foot[ICD10: M25.572] Diagnosis: Pain in right ankle and joints of right foot[ICD10: M25.571] Diagnosis: Pain in right hip[ICD10: M25.551] Diagnosis: Myalgia[ICD10: M79.1] Diagnosis: Vitamin D deficiency, unspecified[ICD10: E55.9] Diagnosis: Bitten or stung by nonvenomous insect and other nonvenomous arthropods, initial encounter[ICD10: W57.XXXA] Stephy Hardy MD, [facility] CPT-4: 96173 01/26/2017 78550 EST. PATIENT, LEVEL IV Diagnosis: Myalgia[ICD10: M79.1] Stephy Hardy MD, [facility] CPT-4: 80254 01/09/2017 ([id number]) 11277 EST. 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 PATIENT, LEVEL IV Diagnosis: Essential (primary) hypertension[ICD10: I10] Diagnosis: Mixed hyperlipidemia[ICD10: E78.2] Diagnosis: Atrophy of thyroid (acquired)[ICD10: E03.4] Subha Hardy MD, [facility] CPT-4: 82186 04/01/2016 ([id number]) 72475 EST. PATIENT, LEVEL IV Diagnosis: Essential (primary) hypertension[ICD10: I10] Diagnosis: Hypothyroidism, unspecified[ICD10: E03.9] Diagnosis: Slow transit constipation[ICD10: K59.01] Diagnosis: Gastro-esophageal reflux disease without esophagitis[ICD10: K21.9] Subha Hardy MD, [facility] CPT-4: 64577 12/03/2015 44916 EST. PATIENT, LEVEL IV Diagnosis: Pain in right knee[ICD10: M25.561] Stephy Hardy MD, [facility] CPT-4: 13984 11/22/2015 ([id number]) 16228 EST. PATIENT, LEVEL IV Diagnosis: Essential (primary) hypertension[ICD10: I10] Diagnosis: Hypothyroidism, unspecified[ICD10: E03.9] Diagnosis: Acute frontal sinusitis, unspecified[ICD10: J01.10] Subha Hardy MD, [facility] CPT-4: 22702 08/29/2015 ([id number]) 89642 EST. 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 Pt has been encouraged to exercise daily. The pt has been advised to call the office if there are any acute concerns about change in blood pressure readings at home. Hypothyroidism - pt with chronic hypothyroidism, continue with current medication, will monitor pt to signs or symptoms of lack of adequate supplementation. Pt is to continue with current dose of medication unless directed otherwise. Check labs at regular intervals q 3 months or q 6 months based on previous levels of control. I have attempted to discuss her case with inpatient rehab coordinator - will attempt again tomorrow. 09/08/2018 Patient Education: Patient Medication Summary Completed 09/08/2018 Patient Education: Back Pain Completed 09/08/2018 Visit Plan: Hospital follow up - This was a follow up appointment from the patient's hospitalization during which time Dr. Hardy formulated the assessment and plan for the follow up on this patient's medical condition. 06/10/2018 Appointment: [id number] (15 min) Moderate 06/10/2018 Patient Education: Patient Medication Summary Completed 06/10/2018 Referral: Chuy Bustos Referral Completed 05/24/2018 Visit Plan: Hypertension - well controlled - continue with current medications, continue with no added salt diet. Pt has been encouraged to exercise daily. The pt has been advised to call the office if there are any acute concerns about change in blood pressure readings at home. Leg pain with possible claudication - referral to dr. bustos for vascular eval on her lower legs due to symptoms of intermittent claudication. Insomnia - if you cannot get back to sleep in the middle of the night - take an extra 1/2 dose of trazodone and 1 gabapentin. Constipation - Miralax 17grams (one tablespoon) daily - see if this helps your constipation - if it does not, let us know Hypothyroidism - pt with chronic hypothyroidism, continue with current medication, will monitor pt to signs or symptoms of lack of adequate supplementation. Pt is to continue with current dose of medication unless directed otherwise. Check labs at regular intervals q 3 months or q 6 months based on previous levels of control. 05/10/2018 App[facility]ment: [phone] [id number] [place] (15 min) Moderate 05/10/2018 Patient Education: Patient Medication Summary Completed 05/10/2018 Care Plan: Referral Order SNOMED-CT : [id number] Pending 05/10/2018 Appointment: Injection 04/15/2018 Patient Education: Patient Medication Summary Completed 04/15/2018 Visit Plan: Low back pain- the patient was instructed in appropriate posture, need for weight loss to alleviate abdominal obesity that is worsening the patient's back pain.. The pt is to use prn antiinflammatories to manage acute pain. The patient is to call the office if the pain is worsening or does not improve. Bursitis - pt to do exercises as directed - stretching, anti-inflammatories to be started after 24 hours, and pt to use heat to the affected sites, pt to call if not improving. 04/01/2018 Appointment: Stephy Hansen WPtel: [phone] [id number] (15 min) Moderate 04/01/2018 Patient Education: Patient Medication Summary Completed 04/01/2018 Patient Education: Back Pain Completed 04/01/2018 Care Plan: X-RAY EXAM L-S SPINE 2/3 VWS LOINC : [id number] Pending 04/01/2018 Visit Plan: Esophageal Reflux - the patient has been counseled against excessive intake of caffeine, spicy foods, peppermint, and cinnamon - all of which can exacerbate esophageal reflux. The patient is to take medications as prescribed and call the office if the symptoms are not improving. Diverticulitis - rx for antibiotic sent to pt's pharmacy - pt advised to avoid seeds, nuts, popcorn, or any other food which has been proven to upset the pt's stomach. 02/04/2018 Appointment: Stephy Hansen WPtel: [phone] [id number] (15 min) Moderate 02/04/2018 Patient Education: Patient Medication Summary Completed 02/04/2018 Visit Plan: Hypertension - well controlled - continue with current medications, continue with no added salt diet. Pt has been encouraged to exercise daily. The pt has been advised to call the office if there are any acute concerns about change in blood pressure readings at home. Back pain - leg pain - continue with gabapentin and naproxen. 01/12/2018 Appointment: [phone] [id number] (15 min) Moderate 01/12/2018 Patient Education: Patient Medication Summary Completed 01/12/2018 Visit Plan: Medicare Exam - today we discussed the patients past history, immunizations, preventative exams/evaluations - colonoscopy, fecal occult blood testing, routine labs for renal function, glucose, cholesterol, osteoporosis evaluations, cardiovascular testing and cancer screenings. We have also discussed mental health and the signs/symptoms of depression. The patient was advised of home safety evaluations and the need to make sure that as the aging process continues, we need to be aware of different ways to make the home a safer place to reside. The patient has also been counseled that exercise is necessary - and of utmost importance as we age to help decrease fall risk and to maintain independece in the home. Today we discussed the need for the patient to create paperwork for Advanced directives as well as for the patient to provide this office with a copy of her DOPA paperwork for health care surrogate. 12/08/2017 Visit Plan: Medicare Exam - today we discussed the patients past history, immunizations, preventative exams/evaluations - colonoscopy, fecal occult blood testing, routine labs for renal function, glucose, cholesterol, osteoporosis evaluations, cardiovascular testing and cancer screenings. We have also discussed mental health and the signs/symptoms of depression. The patient was advised of home safety evaluations and the need to make sure that as the aging process continues, we need to be aware of different ways to make the home a safer place to reside. The patient has also been counseled that exercise is necessary - and of utmost importance as we age to help decrease fall risk and to maintain independece in the home. Today we discussed the need for the patient to create paperwork for Advanced directives as well as for the patient to provide this office with a copy of her DOPA paperwork for health care surrogate. 12/08/2017 Patient Education: Patient Medication Summary Completed 12/08/2017 Visit Plan: Hypertension - well controlled - continue with current medications, continue with no added salt diet. Pt has been encouraged to exercise daily. The pt has been advised to call the office if there are any acute concerns about change in blood pressure readings at home. Fatigue - - recommended pt to decrease the gabapentin to 300mg twice daily x 2 weeks then decrease to gabapentin 300mg nightly thereafter. RTC in 2 months in to see if her symptoms are improved and if blood pressure is stable. 11/18/2017 Appointment: Subha Hardy WPtel: [address] [place], [place] [id number] (15 min) Moderate 11/18/2017 Patient Education: Patient Medication Summary Completed 11/18/2017 Visit Plan: Hypertension - uncontrolled - the patient's medications have been modified as documented in the visit note. The patient has been counseled to cut back on salt in diet for a no added salt diet, low fat diet, start an exercise program with low weight bearing exercises and higher aerobic activity for heart health. The patient is to check blood pressure readings as an outpatient and either fax, call, or email the readings to the office next week for practitioner to review. The pt is to call for acute concerns. change of blood pressure medication as follows: decrease NORVASC ( generic name is amlodipine) to 5mg daily - RX sent to mail order pharmacy increase LOSARTAN to 100mg daily - new rx sent to mail order pharmacy. Hypothyroidism - continue with current management - repeat labs in 3 months. 10/27/2017 Appointment: Subha Hardy WPtel: [facility] (15 min) Moderate 10/27/2017 Patient Education: Patient Medication Summary Completed 10/27/2017 Appointment: Subha Hardy WPtel: [address] [place], [place] [address] (15 min) Moderate 08/18/2017 Visit Plan: Hypertension - well controlled - continue with current medications, continue with no added salt diet. Pt has been encouraged to exercise daily. The pt has been advised to call the office if there are any acute concerns about change in blood pressure readings at home. Recent surgery to low back - continue with physical therapy - improved symptoms. 07/29/2017 Appointment: Subha Hardy WPtel: [facility] (15 min) Moderate 07/29/2017 Patient Education: Patient Medication Summary Completed 07/29/2017 Visit Plan: Hypertension - well controlled - continue with current medications, continue with no added salt diet. Pt has been encouraged to exercise daily. The pt has been advised to call the office if there are any acute concerns about change in blood pressure readings at home. Recent surgery to low back - continue with physical therapy - discussed things to watch out for - pt to call with fever, skin changes to her low back, increase in pain to her low back, etc. 06/30/2017 Appointment: Subha Hardy WPtel: [facility]0 [facility] (15 min) Moderate 06/30/2017 Patient Education: Patient Medication Summary Completed 06/30/2017 Patient Education: Patient Medication Summary Completed 05/29/2017 Visit Plan: Hypertension - well controlled - continue with current medications, continue with no added salt diet. Pt has been encouraged to exercise daily. The pt has been advised to call the office if there are any acute concerns about change in blood pressure readings at home. Insomnia - increase the trazodone to a full tablet at bedtime - call the office on Thursday if the insomnia is not improved. Cough - recommended pt to stop lisinopril and start on losartan. 05/19/2017 Appointment: Subha Hardy WPtel: [facility] (15 min) Moderate 05/19/2017 Patient Education: Patient Medication Summary Completed 05/19/2017 Appointment: Subha Hardy WPtel: [facility]4 [facility]66[facility] (15 min) Moderate 05/12/2017 Visit Plan: Hypertension - well controlled - continue with current medications, continue with no added salt diet. Pt has been encouraged to exercise daily. The pt has been advised to call the office if there are any acute concerns about change in blood pressure readings at home. Hypothyroidism - pt with chronic hypothyroidism, continue with current medication, will monitor pt to signs or symptoms of lack of adequate supplementation. Pt is to continue with current dose of medication unless directed otherwise. Check labs at regular intervals wither q 3 months or q 6 months based on previous levels of control. Insomnia - rx for trazodone given to patient Chronic constipation - Power Pudding: equal parts of prune juice, bran flakes, apple sauce - mix together, and take 1-2 tablespoons up to three times daily. The mixture will stay good in the fridge for 10 days. drink 8 ounces of water with the mixture. 04/07/2017 Appointment: Subha Hardy WPtel: [facility]7 [facility] [place] (15 min) Moderate 04/07/2017 Patient Education: Patient Medication Summary Completed 04/07/2017 Patient Education: Hypertension Completed 04/07/2017 Visit Plan: Myalgias, Low back pain, SI joint pain - stay off of lipitor, will send RX, the patient was instructed in appropriate posture. The pt is to use prn antiinflammatories to manage acute pain. The patient is to call the office if the pain is worsening or does not improve. Right wrist pain - worsening pain - will order x-ray and treat as indicated - pt is to notify clinic if symptoms do not improve, if they worsen, or with any changes, questions, or concerns. 02/23/2017 Appointment: Stephy Hansen WPtel: [facility]5 [facility] (15 min) Moderate 02/23/2017 Patient Education: Patient Medication Summary Completed 02/23/2017 Visit Plan: Joint Injection - Pt was given post - injection instructions. The pt has been advised to use anti-inflammatories post injection today, ice to the injected site, call if redness, warmth, or increased pain occurs at the site of injection. Sacroiliitis - pt to continue with anti-inflammatories. Pt is to call if the symptoms do not improve or if they worsen. Ankle pain, hip pain, myalgias, tick bite - will check labs, pt is to start abx and take a probiotic while on the abx - pt is to notify clinic if symptoms do not improve, or with any changes, questions, or concerns. 01/26/2017 Appointment: Stephy Hansen WPtel: [facility]5 [facility] (30 min) Complex 01/26/2017 Patient Education: Patient Medication Summary Completed 01/26/2017 Visit Plan: Myalgias - in the legs/thighs - pt is to stop lipitor, and start Co Q10 over the counter - pt is to notify clinic if symptoms do not improve, if they worsen, or with any questions, changes, or concerns. 01/09/2017 Patient Education: Patient Medication Summary Completed 01/09/2017 Visit Plan: Hypertension - well controlled - continue with current medications, continue with no added salt diet. Pt has been encouraged to exercise daily. The pt has been advised to call the office if there are any acute concerns about change in blood pressure readings at home. Hyperlipidemia - pt has been counseled about appropriate diet, exercise, and need for low fat food choices. I have discussed the need for the patient to take medications as prescribed. If the patient has negative side effects from the medication, they are to CALL the office and not abruptly discontinue the medication without discussion with a practitioner in the office. We will check labs in 3-6 months for follow up on the patient's chronic medical problem and to assure normal liver response to medications. Hypothyroidism - pt with chronic hypothyroidism, continue with current medication, will monitor pt to signs or symptoms of lack of adequate supplementation. Pt is to continue with current dose of medication unless directed otherwise. Check labs at regular intervals wither q 3 months or q 6 months based on previous levels of control. 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 10/07/2016 App[facility]ment: [facility] [facility] [place] (15 min) Moderate 10/07/2016 Patient Education: Patient Medication Summary Completed 10/07/2016 Patient Education: Obesity Completed 10/07/2016 Patient Education: Hypertension Completed 10/07/2016 Appointment: [facility]el[facility] [facility] [place] (15 min) Moderate 09/30/2016 Visit Plan: Hypertension - well controlled - continue with current medications, continue with no added salt diet. Pt has been encouraged to exercise daily. The pt has been advised to call the office if there are any acute concerns about change in blood pressure readings at home. Hypothyroidism - pt with chronic hypothyroidism, continue with current medication, will monitor pt to signs or symptoms of lack of adequate supplementation. Pt is to continue with current dose of medication unless directed otherwise. Check labs at regular intervals wither q 3 months or q 6 months based on previous levels of control. Hyperlipidemia - pt has been counseled about appropriate diet, exercise, and need for low fat food choices. I have discussed the need for the patient to take medications as prescribed. If the patient has negative side effects from the medication, they are to CALL the office and not abruptly discontinue the medication without discussion with a practitioner in the office. We will check labs in 3-6 months for follow up on the patient's chronic medical problem and to assure normal liver response to medications. 04/01/2016 Appointment: Sub[facility] Hardy [facility]Ptel[facility] [address] [facility] [place] (15 min) Moderate 04/01/2016 Patient Education: Patient Medication Summary Completed 04/01/2016 Visit Plan: Hypertension - well controlled - continue with current medications, continue with no added salt diet. Pt has been encouraged to exercise daily. The pt has been advised to call the office if there are any acute concerns about change in blood pressure readings at home. Hypothyroidism - pt with chronic hypothyroidism, continue with current medication, will monitor pt to signs or symptoms of lack of adequate supplementation. Pt is to continue with current dose of medication unless directed otherwise. Check labs at regular intervals wither q 3 months or q 6 months based on previous levels of control. Esophageal Reflux - the patient has been counseled against excessive intake of caffeine, spicy foods, peppermint, and cinnamon - all of which can exacerbate esophageal reflux. The patient is to take medications as prescribed and call the office if the symptoms are not improving. Chronic Constipation - recommended power pudding, prn miralax. 12/03/2015 Appointment: Sub[facility] Hardy [facility]Ptel[facility] [address] [facility] (15 min) Moderate 12/03/2015 Patient Education: Patient Medication Summary Completed 12/03/2015 Patient Education: Hypertension Completed 12/03/2015 Visit Plan: Right knee pain - pt states that she twisted her knee about 3 weeks ago, she has been wearing a knee brace and using ice, with no relief. Will order MRI. Pt is to continue with RICE - Rest Ice Compression Elevation. Pt is to notify clinic if symptoms do not improve or with any concerns. 11/22/2015 Appointment: Stephy Hansen [facility]el[facility] (30 min) Complex 11/22/2015 Patient Education: Patient Medication Summary Completed 11/22/2015 Patient Education: Obesity Completed 11/22/2015 Visit Plan: Hypertension - well controlled - continue with current medications, continue with no added salt diet. Pt has been encouraged to exercise daily. The pt has been advised to call the office if there are any acute concerns about change in blood pressure readings at home. Hypothyroidism - pt with chronic hypothyroidism, continue with current medication, will monitor pt to signs or symptoms of lack of adequate supplementation. Pt is to continue with current dose of medication unless directed otherwise. Check labs at regular intervals wither q 3 months or q 6 months based on previous levels of control. Sinusitis - Pt has acute infection - pain in face, maxillary region , Pt informed to use decongestant, RX given to patient, sinus rinses also recommended. Call if symptoms do not show improvement. 08/29/2015 Appointment: Subha Hardy WPtel: [address] [facility] (15 min) Moderate 08/29/2015 Patient Education: Patient Medication Summary Completed 08/29/2015 Patient Education: Obesity Completed 08/29/2015 Patient Education: Hypertension Completed 08/29/2015 Visit Plan: Hypertension - well controlled - continue with current medications, continue with no added salt diet. Pt has been encouraged to exercise daily. The pt has been advised to call the office if there are any acute concerns about change in blood pressure readings at home. Constipation - uncontrolled - I have discussed with the patient the need for adequate fiber and water intake to facilitate soft, easily passed stools. The pt noted understanding of our conversation. I have given the patient a recipe for "power pudding" - equal parts, bran flakes, prune juice, and apple sauce. The pt is to call if symptoms not improved on this regimen. 02/28/2015 Appointment: Subha Hardy WPtel: [facility] Follow up 02/28/2015 Patient Education: Patient Medication Summary Completed 02/28/2015 Patient Education: Hypertension Completed 02/28/2015 Visit Plan: Constipation-chronic issue-increase miralax as instructed Hypertension - well controlled - continue with current medications, continue with no added salt diet. Pt has been encouraged to exercise daily. The pt has been advised to call the office if there are any acute concerns about change in blood pressure readings at home. Hypothyroidism - pt with chronic hypothyroidism, continue with current medication, will monitor pt to signs or symptoms of lack of adequate supplementation. Pt is to continue with current dose of medication unless directed otherwise. Check labs at regular intervals wither q 3 months or q 6 months based on previous levels of control. Cyst of hxkzhqz-vueicazntnv-hbeqgxy lipoma-call if changing or any concerns 11/10/2014 Appointment: (S) New Patient 11/10/2014 Patient Education: Patient Medication Summary Completed 11/10/2014 Patient Education: Hypertension Completed 11/10/2014 Care Plan: COMPLETE CBC AUTOMATED LOINC : 94701-6 Ordered 11/10/2014 Referral: Chuy Bustos Referral Appointment Requested Instructions Comment . Hospital follow up - This was a follow up appointment from the patient's hospitalization during which time Dr. Hardy formulated the assessment and plan for the follow up on this patient's medical condition. Prednisone for 5 days to help decrease inflammation use voltaren gel 3 times a day x-ray of low back let Dr. Clements know that you are having back pain again. . Low back pain- the patient was instructed in appropriate posture, need for weight loss to alleviate abdominal obesity that is worsening the patient's back pain.. The pt is to use prn antiinflammatories to manage acute pain. The patient is to call the office if the pain is worsening or does not improve. Bursitis - pt to do exercises as directed - stretching, anti-inflammatories to be started after 24 hours, and pt to use heat to the affected sites, pt to call if not improving. . Hypertension - well controlled - continue with current medications, continue with no added salt diet. Pt has been encouraged to exercise daily. The pt has been advised to call the office if there are any acute concerns about change in blood pressure readings at home. Hypothyroidism - pt with chronic hypothyroidism, continue with current medication, will monitor pt to signs or symptoms of lack of adequate supplementation. Pt is to continue with current dose of medication unless directed otherwise. Check labs at regular intervals wither q 3 months or q 6 months based on previous levels of control. Sinusitis - Pt has acute infection - pain in face, maxillary region, Pt informed to use decongestant, RX given to patient, sinus rinses also recommended. Call if symptoms do not show improvement. Co enzyme Q10 over the counter - take for at least the next 2 weeks. Stop lipitor, push fluids Try magnesium over the counter at night. . Myalgias - in the legs/thighs - pt is to stop lipitor, and start Co Q10 over the counter - pt is to notify clinic if symptoms do not improve, if they worsen, or with any questions, changes, or concerns. INCRREASE MIRALAX TO EVERY OTHER DAY FOR CONSTIPATION IF THAT'S NOT ENOUGH, YOU CAN INCREASE MIRALAX TO DAILY MONITOR CYST ON ABDOMEN, CALL IF ENLARGING. WE CAN REFER YOU FOR REMOVAL . Constipation-chronic issue-increase miralax as instructed Hypertension - well controlled - continue with current medications, continue with no added salt diet. Pt has been encouraged to exercise daily. The pt has been advised to call the office if there are any acute concerns about change in blood pressure readings at home. Hypothyroidism - pt with chronic hypothyroidism, continue with current medication, will monitor pt to signs or symptoms of lack of adequate supplementation. Pt is to continue with current dose of medication unless directed otherwise. Check labs at regular intervals wither q 3 months or q 6 months based on previous levels of control. Cyst of ksltaco-qlqhrftatno-xgmlltv lipoma-call if changing or any concerns Power Pudding: equal parts of prune juice, bran flakes, apple sauce - mix together, and take 1-2 tablespoons up to three times daily. The mixture will stay good in the fridge for 10 days. drink 8 ounces of water with the mixture. . Hypertension - well controlled - continue with current medications, continue with no added salt diet. Pt has been encouraged to exercise daily. The pt has been advised to call the office if there are any acute concerns about change in blood pressure readings at home. Hypothyroidism - pt with chronic hypothyroidism, continue with current medication, will monitor pt to signs or symptoms of lack of adequate supplementation. Pt is to continue with current dose of medication unless directed otherwise. Check labs at regular intervals wither q 3 months or q 6 months based on previous levels of control. Insomnia - rx for trazodone given to patient Chronic constipation - Power Pudding: equal parts of prune juice, bran flakes, apple sauce - mix together, and take 1-2 tablespoons up to three times daily. The mixture will stay good in the fridge for 10 days. drink 8 ounces of water with the mixture. . Joint Injection - Pt was given post - injection instructions. The pt has been advised to use anti-inflammatories post injection today, ice to the injected site, call if redness, warmth, or increased pain occurs at the site of injection. Sacroiliitis - pt to continue with anti-inflammatories. Pt is to call if the symptoms do not improve or if they worsen. Ankle pain, hip pain, myalgias, tick bite - will check labs, pt is to start abx and take a probiotic while on the abx - pt is to notify clinic if symptoms do not improve, or with any changes, questions, or concerns. . Hypertension - well controlled - continue with current medications, continue with no added salt diet. Pt has been encouraged to exercise daily. The pt has been advised to call the office if there are any acute concerns about change in blood pressure readings at home. Recent surgery to low back - continue with physical therapy - discussed things to watch out for - pt to call with fever, skin changes to her low back, increase in pain to her low back, etc. we are going to change your blood pressure medication as follows: decrease NORVASC (generic name is amlodipine) to 5mg daily - RX sent to mail order pharmacy increase LOSARTAN to 100mg daily - new rx sent to mail order pharmacy . Hypertension - uncontrolled - the patient's medications have been modified as documented in the visit note. The patient has been counseled to cut back on salt in diet for a no added salt diet, low fat diet, start an exercise program with low weight bearing exercises and higher aerobic activity for heart health. The patient is to check blood pressure readings as an outpatient and either fax , call, or email the readings to the office next week for practitioner to review. The pt is to call for acute concerns. change of blood pressure medication as follows: decrease NORVASC (generic name is amlodipine) to 5mg daily - RX sent to mail order pharmacy increase LOSARTAN to 100mg daily - new rx sent to mail order pharmacy. Hypothyroidism - continue with current management - repeat labs in 3 months. increase the trazodone to a full tablet at bedtime - call the office on Thursday if the insomnia is not improved. kirsten soriano - the inpatient rehab coordinator at the hospital will get in touch with you to help to coordinate a plan for you after your back surgery. stop lisinopril and start on losartan . Hypertension - well controlled - continue with current medications, continue with no added salt diet. Pt has been encouraged to exercise daily. The pt has been advised to call the office if there are any acute concerns about change in blood pressure readings at home. Insomnia - increase the trazodone to a full tablet at bedtime - call the office on Thursday if the insomnia is not improved. Cough - recommended pt to stop lisinopril and start on losartan. . Hypertension - well controlled - continue with current medications, continue with no added salt diet. Pt has been encouraged to exercise daily. The pt has been advised to call the office if there are any acute concerns about change in blood pressure readings at home. Back pain - leg pain - continue with gabapentin and naproxen. . Right knee pain - pt states that she twisted her knee about 3 weeks ago, she has been wearing a knee brace and using ice, with no relief. Will order MRI. Pt is to continue with RICE - Rest Ice Compression Elevation. Pt is to notify clinic if symptoms do not improve or with any concerns. . Hypertension - well controlled - continue with current medications, continue with no added salt diet. Pt has been encouraged to exercise daily. The pt has been advised to call the office if there are any acute concerns about change in blood pressure readings at home. Constipation - uncontrolled - I have discussed with the patient the need for adequate fiber and water intake to facilitate soft, easily passed stools. The pt noted understanding of our conversation. I have given the patient a recipe for "power pudding" - equal parts, bran flakes, prune juice, and apple sauce. The pt is to call if symptoms not improved on this regimen. if you cannot get back to sleep in the middle of the night - take an extra 1/2 dose of trazodone and 1 gabapentin. Miralax 17grams (one tablespoon) daily - see if this helps your constipation - if it does not, let us know . Hypertension - well controlled - continue with current medications, continue with no added salt diet. Pt has been encouraged to exercise daily. The pt has been advised to call the office if there are any acute concerns about change in blood pressure readings at home. Leg pain with possible claudication - referral to dr. bustos for vascular eval on her lower legs due to symptoms of intermittent claudication. Insomnia - if you cannot get back to sleep in the middle of the night - take an extra 1/2 dose of trazodone and 1 gabapentin. Constipation - Miralax 17grams (one tablespoon) daily - see if this helps your constipation - if it does not, let us know Hypothyroidism - pt with chronic hypothyroidism, continue with current medication, will monitor pt to signs or symptoms of lack of adequate supplementation. Pt is to continue with current dose of medication unless directed otherwise. Check labs at regular intervals q 3 months or q 6 months based on previous levels of control. . Medicare Exam - today we discussed the patients past history, immunizations, preventative exams/evaluations - colonoscopy, fecal occult blood testing, routine labs for renal function, glucose, cholesterol, osteoporosis evaluations, cardiovascular testing and cancer screenings. We have also discussed mental health and the signs/symptoms of depression. The patient was advised of home safety evaluations and the need to make sure that as the aging process continues, we need to be aware of different ways to make the home a safer place to reside. The patient has also been counseled that exercise is necessary - and of utmost importance as we age to help decrease fall risk and to maintain independece in the home. Today we discussed the need for the patient to create paperwork for Advanced directives as well as for the patient to provide this office with a copy of her DOP[employer] paperwork for health care surrogate. . Medicare Exam - today we discussed the patients past history, immunizations, preventative exams/evaluations - colonoscopy, fecal occult blood testing, routine labs for renal function, glucose, cholesterol, osteoporosis evaluations, cardiovascular testing and cancer screenings. We have also discussed mental health and the signs/symptoms of depression. The patient was advised of home safety evaluations and the need to make sure that as the aging process continues, we need to be aware of different ways to make the home a safer place to reside. The patient has also been counseled that exercise is necessary - and of utmost importance as we age to help decrease fall risk and to maintain independece in the home. Today we discussed the need for the patient to create paperwork for Advanced directives as well as for the patient to provide this office with a copy of her DOPA paperwork for health care surrogate. . Myalgias, Low back pain, SI joint pain - stay off of lipitor, will send RX, the patient was instructed in appropriate posture. The pt is to use prn antiinflammatories to manage acute pain. The patient is to call the office if the pain is worsening or does not improve. Right wrist pain - worsening pain - will order x-ray and treat as indicated - pt is to notify clinic if symptoms do not improve, if they worsen, or with any changes, questions, or concerns. . Esophageal Reflux - the patient has been counseled against excessive intake of caffeine, spicy foods, peppermint, and cinnamon - all of which can exacerbate esophageal reflux. The patient is to take medications as prescribed and call the office if the symptoms are not improving. Diverticulitis - rx for antibiotic sent to pt's pharmacy - pt advised to avoid seeds, nuts, popcorn, or any other food which has been proven to upset the pt's stomach. will talk to Kirsten Soriano - [facility] inpatient rehabilitator about your planned surgery at [address] [place] [address] on september 20 to see if we can coordinate some sort of plan for your discharge from the hospital over to the rehab unit.. Hypertension - well controlled - continue with current medications , continue with no added salt diet. Pt has been encouraged to exercise daily. The pt has been advised to call the office if there are any acute concerns about change in blood pressure readings at home. Hypothyroidism - pt with chronic hypothyroidism, continue with current medication, will monitor pt to signs or symptoms of lack of adequate supplementation. Pt is to continue with current dose of medication unless directed otherwise. Check labs at regular intervals q 3 months or q 6 months based on previous levels of control. I have attempted to discuss her case with inpatient rehab coordinator - will attempt again tomorrow. vitamin D 5000 units daily vitamin b 12 liquid - or dissolving tab - take at least 2000 units daily . Hypertension - well controlled - continue with current medications, continue with no added salt diet. Pt has been encouraged to exercise daily. The pt has been advised to call the office if there are any acute concerns about change in blood pressure readings at home. Hypothyroidism - pt with chronic hypothyroidism, continue with current medication, will monitor pt to signs or symptoms of lack of adequate supplementation. Pt is to continue with current dose of medication unless directed otherwise. Check labs at regular intervals wither q 3 months or q 6 months based on previous levels of control. Esophageal Reflux - the patient has been counseled against excessive intake of caffeine, spicy foods, peppermint, and cinnamon - all of which can exacerbate esophageal reflux. The patient is to take medications as prescribed and call the office if the symptoms are not improving. Chronic Constipation - recommended power pudding, prn miralax. 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 monitor and let me know if these get worse or increase in size quickly. Hypertension - well controlled - continue with current medications, continue with no added salt diet. Pt has been encouraged to exercise daily. The pt has been advised to call the office if there are any acute concerns about change in blood pressure readings at home. Hyperlipidemia - pt has been counseled about appropriate diet, exercise, and need for low fat food choices. I have discussed the need for the patient to take medications as prescribed. If the patient has negative side effects from the medication, they are to CALL the office and not abruptly discontinue the medication without discussion with a practitioner in the office. We will check labs in 3-6 months for follow up on the patient's chronic medical problem and to assure normal liver response to medications. Hypothyroidism - pt with chronic hypothyroidism, continue with current medication, will monitor pt to signs or symptoms of lack of adequate supplementation. Pt is to continue with current dose of medication unless directed otherwise. Check labs at regular intervals wither q 3 months or q 6 months based on previous levels of control. 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 get labs done next week get mammogram scheduled . Hypertension - well controlled - continue with current medications, continue with no added salt diet. Pt has been encouraged to exercise daily. The pt has been advised to call the office if there are any acute concerns about change in blood pressure readings at home. Hypothyroidism - pt with chronic hypothyroidism, continue with current medication, will monitor pt to signs or symptoms of lack of adequate supplementation. Pt is to continue with current dose of medication unless directed otherwise. Check labs at regular intervals wither q 3 months or q 6 months based on previous levels of control. Hyperlipidemia - pt has been counseled about appropriate diet, exercise, and need for low fat food choices. I have discussed the need for the patient to take medications as prescribed. If the patient has negative side effects from the medication, they are to CALL the office and not abruptly discontinue the medication without discussion with a practitioner in the office. We will check labs in 3-6 months for follow up on the patient's chronic medical problem and to assure normal liver response to medications. . Hypertension - well controlled - continue with current medications, continue with no added salt diet. Pt has been encouraged to exercise daily. The pt has been advised to call the office if there are any acute concerns about change in blood pressure readings at home. Recent surgery to low back - continue with physical therapy - improved symptoms. decrease the gabapentin to 300mg twice daily x 2 weeks then decrease to gabapentin 300mg nightly thereafter . Hypertension - well controlled - continue with current medications, continue with no added salt diet. Pt has been encouraged to exercise daily. The pt has been advised to call the office if there are any acute concerns about change in blood pressure readings at home. Fatigue - - recommended pt to decrease the gabapentin to 300mg twice daily x 2 weeks then decrease to gabapentin 300mg nightly thereafter. RTC in 2 months in to see if her symptoms are improved and if blood pressure is stable.
--- OUTSIDE RECORDS SUMMARY | 2018-09-22 17:53 | XMS REPORT | CCD ---
Author Author Sandi Camp Organization [facility] Address [address] [place] [address] Phone Care Team Providers Care Cigarette Examiner Name Role Phone PP Unavailable CCM Unavailable Summary Purpose Interface Exchange Insurance Providers Payer name Policy type / Coverage type Covered democrat ID Effective Begin Date Effective End Date WPS Medicare Part B Medicare Part B [id number] Unknown [employer] Medicare Part B [id number] Unknown Family history Brother sara Diagnosis Age [...] status Unknown 11/10/[address]: 880335144 Never smoker 11/10/2014 Alcohol history Unknown occasionally drinks alcohol 11/10/2014 Allergies, Adverse Reactions, Alerts Substance Reaction Codes Entered Date Inactivated Date Status SULFA(SULFONAMIDE ANTIBIOTICS) Unknown 11/10/2014 No Inactive Date Active TERBINAFINE Unknown 11/10/2014 No Inactive Date Active Past Medical History Illness Codes Condition Status Onset Date Resolved Date Encounter for follow-up examination after completed treatment for conditions other than malignant neoplasm ICD-9: V67.59 ICD-10: Z09 Active 06/10/2018 Unknown Atrophy of thyroid (acquired) ICD-9: 244.8 ICD-10: E03.4 Active 03/31/2016 Unknown Essential (primary) hypertension ICD-9: 401.1 ICD-10: I10 Active 07/29/2017 Unknown 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 Active 04/07/2017 Unknown Pain in left leg ICD-9 : 729.5 ICD-10: M79.605 Active 05/10/2018 Unknown Pain in right leg ICD- 9: 729.5 ICD-10: M79.604 Active 05/10/2018 Unknown Encounter for immunization ICD-9: V04.81 ICD-10: Z23 Active 04/15/2018 Unknown Low back pain ICD-9: 724.2 ICD-10: M54.5 Active 05/19/2017 Unknown Trochanteric bursitis, right hip ICD-9: 726.5 [...] Problems Condition Codes Effective Dates Condition Status Encounter for follow-up examination after completed treatment for conditions other than malignant neoplasm ICD-9: V67.59 ICD-10: Z09 06/10/2018 Active Atrophy of thyroid (acquired) ICD-9: 244.8 ICD-10: E03.4 03/31/2016 Active Essential (primary) hypertension ICD-9: 401.1 ICD-10: I10 07/29/2017 Active 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 04/07/2017 Active Pain in left leg ICD-9 : 729.5 ICD-10: M79.605 05/10/2018 Active Pain in right leg ICD- 9: 729.5 ICD-10: M79.604 05/10/2018 Active Encounter for immunization ICD-9: V04.81 ICD-10: Z23 04/15/2018 Active Low back pain ICD-9: 724.2 ICD-10: M54.5 05/19/2017 Active Trochanteric bursitis, right hip ICD-9: 726.5 [...] Fill Instructions baclofen 10 mg tablet RxNorm: 792581 1 Tablet(s) PO TID 201807/20/2019 Active levothyroxine 125 mcg tablet RxNorm: 405369 TAKE 1 TABLET EVERY DAY 06/02/2018 11/28/2018 Active gabapentin 300 mg capsule RxNorm: 375332 1 Capsule(s) PO QID 05/04/2019 Active update on her script trazodone 50 mg tablet RxNorm: 388568 1.5 Tablet(s) PO QHS 07/03/2019 Active pantoprazole 40 mg tablet,delayed release RxNorm: 099862 1 Tablet(s) PO daily 04/16/2018 04/10/2019 Active prednisone 20 mg tablet RxNorm: 663002 2 Tablet(s) PO daily 04/05/2018 Inactive losartan 100 mg tablet RxNorm: 186459 1 Tablet(s) PO daily 04/29/2019 Active Cipro 500 mg tablet RxNorm: 779574 1 Tablet(s) PO BID x 3 days to equal a total of 10 days 02/04/2018 02/06/2018 Inactive Flagyl 500 mg tablet RxNorm: 257295 1 Tablet(s) PO TID x 3 days to equal a total of 10 days 02/04/2018 02/06/2018 Inactive Carafate 1 gram tablet RxNorm: 693020 1 Tablet(s) PO QID 201703/05/2018 Inactive gabapentin 300 mg capsule RxNorm: 641983 1 Capsule(s) PO TID 05/09/2018 Inactive update on her script levothyroxine 125 mcg tablet RxNorm: 372965 TAKE 1 TABLET EVERY DAY 12/29/2017 06/01/2018 Inactive gabapentin 300 mg capsule RxNorm: 777057 1 Capsule(s) PO BID 01/11/2018 Inactive Norvasc 5 mg tablet RxNorm: 543504 1 Tablet(s) PO daily 201701/19/2019 Active losartan 100 mg tablet RxNorm: 056212 1 Tablet(s) PO daily 02/03/2018 Inactive levothyroxine 125 mcg tablet RxNorm: 671197 Tablet(s) TAKE 1 TABLET EVERY DAY 08/13/2017 12/28/2017 Inactive Zithromax Z-Nirav 250 mg tablet RxNorm: 824342 1 Tablet(s) PO UD 07/02/2017 11/17/2017 Inactive zpack as directed trazodone 50 mg tablet RxNorm: 765937 1 Tablet(s) PO QHS 201605/09/2018 Inactive losartan 50 mg tablet RxNorm: 047617 1 Tablet(s) PO daily 201610/26/2017 Inactive pantoprazole 40 mg tablet,delayed release RxNorm: 376709 1 Tablet(s) PO daily 04/07/2017 04/01/2018 Inactive trazodone 50 mg tablet RxNorm: 992236 1/2 Tablet(s) PO QHS 05/25/2017 Inactive prednisone 20 mg tablet RxNorm: 228638 2 Tablet(s) PO daily 04/201702/27/2017 Inactive gabapentin 300 mg capsule RxNorm: 358517 1 Capsule(s) PO TID 11/17/2017 Inactive baclofen 10 mg tablet RxNorm: 317736 1 Tablet(s) PO TID 201602/06/2018 Inactive Vitamin D3 5,000 unit tablet RxNorm: 896639 1 Tablet(s) PO daily 02/11/2017 No Stop Date Active levothyroxine 125 mcg tablet RxNorm: 489089 TAKE 1 TABLET EVERY DAY 02/10/2017 05/10/2017 Inactive Kenalog 40 mg/mL suspension for injection RxNorm: 4941276 1 Milliliter(s) Inj 01/26/2017 01/26/2017 Inactive doxycycline hyclate 100 mg capsule RxNorm: 2779194 1 Capsule(s) PO BID 01/26/2017 02/04/2017 Inactive Norvasc 10 mg tablet RxNorm: 325549 1 Tablet(s) PO daily 201610/26/2017 Inactive Lipitor 20 mg tablet RxNorm: 252783 1 Tablet(s) PO QPM 201501/05/2017 Inactive sent on 12/25 also levothyroxine 125 mcg tablet RxNorm: 795347 1 Tablet(s) PO daily 12/28/2015 02/09/2017 Inactive 2nd escribe for this medication sent 12/25 Ziac 10 mg-6.25 mg tablet RxNorm: 736243 Tablet(s) TAKE ONE TABLET BY MOUTH DAILY 12/28/2015 10/06/2016 Inactive sent on 12/25 also levothyroxine 125 mcg tablet RxNorm: 531263 1 Tablet(s) PO daily 12/26/2015 12/27/2015 Inactive Lipitor 20 mg tablet RxNorm: 411725 1 Tablet(s) PO QPM 201512/27/2015 Inactive Ziac 10 mg-6.25 mg tablet RxNorm: 037330 Tablet(s) TAKE ONE TABLET BY MOUTH DAILY 12/26/2015 12/27/2015 Inactive Ziac 10 mg-6.25 mg tablet RxNorm: 109600 TAKE ONE TABLET BY MOUTH DAILY 11/27/2015 12/25/2015 Inactive hydrocodone 5 mg-acetaminophen 325 mg tablet RxNorm: 962094 1 Tablet(s) PO Q4-6H 11/22/2015 03/31/2016 Inactive prednisone 20 mg tablet RxNorm: 546068 3 Tablet(s) PO daily 09/02/2015 Inactive azithromycin 250 mg tablet RxNorm: 989239 2 Tablet(s) PO on day #1, then 1pill daily x 4 days 08/29/2015 12/02/2015 Inactive Lipitor 20 mg tablet RxNorm: 432189 1 Tablet(s) PO QPM 201412/25/2015 Inactive levothyroxine 125 mcg tablet RxNorm: 220585 1 Tablet(s) PO daily 04/25/2015 12/25/2015 Inactive Ziac 10 mg-6.25 mg tablet RxNorm: 848767 1 Tablet(s) PO daily 03/12/2015 10/07/2015 Inactive Fish Oil oral RxNorm: 7397787 oral No Start Date Active Aspirin Low Dose 81 mg tablet,delayed release RxNorm: 180908 1 Tablet(s) PO daily No Start Date Active tramadol 37.5 mg-acetaminophen 325 mg tablet RxNorm: 957296 Tablet(s) PO PRN No Start Date Active carvedilol 6.25 mg tablet RxNorm: 760884 1 Tablet(s) PO BID No Start Date Active Calcium RxNorm: 1 PO daily No Start Date Active Glucosamine Chondroitin Maximum Strength oral RxNorm: 4845 oral No Start Date Active Probiotic oral RxNorm : 6205 oral No Start Date Active multivitamin tablet RxNorm: 1 Tablet(s) PO daily No Start Date Active Vitamin B-6 oral RxNorm: 706944 oral No Start Date Active carvedilol 6.25 mg tablet RxNorm: 884695 1 Tablet(s) PO BID No Start Date Active Vitamin C oral RxNorm : 1151 oral No Start Date Active Vitamin B-12 oral RxNorm: 37231 oral No Start Date Active cetirizine 10 mg tablet RxNorm: 3294549 1 Tablet(s) PO daily No Start Date Active naproxen 500 mg tablet RxNorm: 116384 1 Tablet(s) PO BID No Start Date Active potassium chloride ER 10 mEq tablet,extended release RxNorm: 583316 1 Tablet(s) PO daily Dr [place] No Start Date Active Lipitor 20 mg tablet RxNorm: 071157 1 Tablet(s) PO daily No Start Date 06/11/2015 Inactive baclofen 10 mg tablet RxNorm: 382145 1 Tablet(s) PO TID No Start Date 02/11/2017 Inactive gabapentin 600 mg tablet RxNorm: 208885 1 Tablet(s) PO TID No Start Date 01/22/2017 Inactive Zithromax Z-Nirav 250 mg tablet RxNorm: 718034 1 Tablet(s) PO UD No Start Date 07/01/2017 Inactive zpack as directed levothyroxine 125 mcg capsule RxNorm: 403086 1 Capsule(s) PO daily No Start Date 04/24/2015 Inactive Ziac 10 mg-6.25 mg tablet RxNorm: 264140 1 Tablet(s) PO daily No Start Date 03/11/2015 Inactive gabapentin 300 mg capsule RxNorm: 836474 1 Capsule(s) PO TID No Start Date 02/11/2017 Inactive lisinopril 10 mg tablet RxNorm: 877996 1 Tablet(s) PO daily No Start Date 05/18/2017 Inactive Protonix 40 mg granules delayed-release packet RxNorm: 592856 1 PO daily No Start Date 04/06/2017 Inactive cyclobenzaprine 10 mg tablet RxNorm: 269451 1 Tablet(s) PO daily No Start Date 12/07/2017 Inactive hydrochlorothiazide 25 mg tablet RxNorm: 182819 1 Tablet(s) PO daily No Start Date 12/07/2017 Inactive Norvasc 10 mg tablet RxNorm: 484874 2 Tablet(s) PO daily No Start Date 10/06/2016 Inactive Vitamin D3 oral RxNorm : oral No Start Date 02/10/2017 Inactive Medication Administered Medication Codes Instructions Start Date Status Kenalog 40 mg/mL suspension for injection RxNorm: 7179627 1Milliliter 01/26/2017 No longer Active Immunizations Vaccine Codes Date Status Influenza CVX: 141 04/15/2018 completed Influenza CVX: 141 04/07/2017 completed Influenza CVX: 141 03/29/2015 completed Influenza CVX: 141 03/15/2014 completed Assessments Condition Codes Effective Dates Encounter for follow-up examination after completed treatment for conditions other than malignant neoplasm ICD-10: Z09 ICD-9: V67.59 06/10/2018 Essential (primary) hypertension ICD-10: I10 ICD-9: 401.1 05/10/2018 Pain in left leg ICD-10: M79.605 ICD-9: 729.5 05/10/2018 Insomnia due to medical condition ICD-10: G47.01 ICD-9: 327.01 05/10/2018 Atrophy of thyroid (acquired) ICD-10: E03.4 ICD-9: 244.8 05/10/2018 Pain in right leg ICD-10: M79.604 ICD-9: 729.5 05/10/2018 Encounter for immunization ICD-10: Z23 ICD-9: V04.81 04/15/2018 Trochanteric bursitis, right hip ICD-10: M70.61 ICD-9: 726.5 04/01/2018 Low back pain ICD-10: M54.5 ICD-9: 724.2 04/01/2018 Gastro-esophageal reflux disease without esophagitis ICD-10 : K21.9 ICD-9: 530.81 02/04/2018 Diverticulitis of large intestine without perforation or abscess without bleeding ICD-10: K57.32 ICD-9: 562.11 02/04/2018 Other fatigue ICD-10: R53.83 ICD-9: 780.79 01/12/2018 Encounter for general adult medical examination with abnormal findings ICD-10: Z00.01 ICD-9: V70.0 12/08/2017 Slow transit constipation ICD-10: K59.01 ICD-9: 564.00 06/30/2017 Essential (primary) hypertension ICD-10: I10 ICD-9: 401.9 06/30/2017 Mixed hyperlipidemia ICD-10: E78.2 ICD-9: 272.2 05/29/2017 Hypothyroidism, unspecified ICD-10: E03.9 ICD-9: 244.9 05/29/2017 Cough ICD-10: R05 ICD-9: 786.2 05/19/2017 Slow transit constipation ICD-10: K59.01 ICD-9: 564.01 04/07/2017 Encounter for immunization ICD-10: Z23 ICD-9: V03.9 04/07/2017 Pain in right wrist ICD-10: M25.531 ICD-9: 719.43 02/23/2017 Myalgia ICD-10: M79.1 ICD-9: 729.1 02/23/2017 Pain in right ankle and joints of right foot ICD-10: M25.571 ICD-9: 719.47 01/26/2017 Vitamin D deficiency, unspecified ICD-10: E55.9 ICD-9: 268.9 01/26/2017 Pain in right hip ICD-10: M25.551 ICD-9: 719.45 01/26/2017 Pain in left ankle and joints of left foot ICD-10: M25.572 ICD-9: 719.47 01/26/2017 Bitten or stung by nonvenomous insect and other nonvenomous arthropods, initial encounter ICD-10: W57.XXXA ICD-9: 919.4 01/26/2017 Benign lipomatous neoplasm of skin and [...] Visit Reason For Visit Effective Dates Notes Hospital Follow Up 06/10/2018 hip pain 05/10/2018 [...] Observation Code Item Item Code Result Date Tsh Ord6 hTSH II 1.70 uIU/mL 05/29/2017 Free T4 Xqy667 FREE T4 0.84 ng/dL 05/29/2017 Comp Metabolic Uic893 NA 143 mEq/L 05/29/2017 Comp Metabolic Kqp283 K 3.5 mEq/L 05/29/2017 Comp Metabolic Bsd648 CL 103 mEq/L 05/29/2017 Comp Metabolic Aul684 CO2 29.0 mEq/L 05/29/2017 Comp Metabolic Ajg230 ANION GAP 15 05/29/2017 Comp Metabolic Dmo754 GLUCOSE 122 mg/dL 05/29/2017 Comp Metabolic Hdx514 Creat 0.6 mg/dL 05/29/2017 Comp Metabolic Nap302 eGFR 102 ml/min/1.73m2 05/29/2017 Comp Metabolic Fof646 BUN 11 mg/dL 05/29/2017 Comp Metabolic Smg856 B/C Ratio 17.7 Ratio 05/29/2017 Comp Metabolic Drb301 CALCIUM 9.6 mg/dL 05/29/2017 Comp Metabolic Xjh753 ALK PHOS 79 U/L 05/29/2017 Comp Metabolic Bio666 AST(SGOT) 16 U/L 05/29/2017 Comp Metabolic Dyh375 ALT(SGPT) 17 U/L 05/29/2017 Comp Metabolic Qrm944 BILI T 0.6 mg/dL 05/29/2017 Comp Metabolic Lac019 ALBUMIN 4.6 g/dL 05/29/2017 Comp Metabolic Nrz346 TPRO 6.7 g/dL 05/29/2017 Comp Metabolic Hou794 GLOB 2.1 g/dL 05/29/2017 Comp Metabolic Lsb699 A/G Ratio 2.1 Ratio 05/29/2017 Comp Metabolic Knp858 Osmo 286 mOsmo 05/29/2017 Lipid Ord30 CHOL 261 mg/dL 05/29/2017 Lipid Ord30 HDL 51.0 mg/dl 05/29/2017 Lipid Ord30 TRIG 165 mg/dL 05/29/2017 Lipid Ord30 LDL 177 mg/dL 05/29/2017 Lipid Ord30 C/HDL 5.1 Ratio 05/29/2017 Cbc With Differential Ord2 WBC 4.32 K/ul 05/29/2017 Cbc With Differential Ord2 RBC 4.29 M/ul 05/29/2017 Cbc With Differential Ord2 HGB 12.8 g/dl 05/29/2017 Cbc With Differential Ord2 HCT 39.8 % 05/29/2017 Cbc With Differential Ord2 Neut% 60.4 % 05/29/2017 Cbc With Differential Ord2 Lymph% 27.1 % 05/29/2017 Cbc With Differential Ord2 MCV 92.8 fl 05/29/2017 Cbc With Differential Ord2 [place]arrard% 7.9 % 05/29/2017 Cbc With Differential Ord2 MCH 29.8 pg 05/29/2017 Cbc With Differential Ord2 Eos% 4.4 % 05/29/2017 Cbc With Differential Ord2 MCHC 32.2 pg 05/29/2017 Cbc With Differential Ord2 Baso% 0.2 % 05/29/2017 Cbc With Differential Ord2 PLT 200 K/ul 05/29/2017 Cbc With Differential Ord2 Neut ABS# 2.61 K/ul 05/29/2017 Cbc With Differential Ord2 RDW 14.0 % 05/29/2017 Cbc With Differential Ord2 Lymph ABS# 1.17 K/ul 05/29/2017 Cbc With Differential Ord2 [place] ABS# 0.3 K/ul 05/29/2017 Cbc With Differential Ord2 Eos ABS# 0.2 K/ul 05/29/2017 Cbc With Differential Ord2 Baso ABS# 0.0 K/ul 05/29/2017 Fossil Spotted Fever Igg/Igm 253941 SKIP MT SPOTTED FEVER IGM EIA . 01/30/2017 Fossil Spotted Fever Igg/Igm 556732 RMSF, IGM 0.31 index 01/30/2017 Fossil Spotted Fever Igg/Igm 458019 SKIP MT SPOTTED FEVER IGG EIA FLEX . 01/30/2017 Fossil Spotted Fever Igg/Igm 044826 RMSF, IGG SCREEN-FLEX Negative 01/30/2017 Ehrlichia Chaffeensis Antibody Igg [id number] EHRLICHIA CHAFFEENSIS IGG <1:64 01/30/2017 Ehrlichia Chaffeensis Antibody Igm 658802 EHRLICHIA CHAFFEENSIS IGM < 1:16 01/30/2017 Lymes Disease Total Antibodies With Western Blot Reflex [id number] B. BURGDORFERI, IGG/IGM 0.12 LI 01/27/2017 Lymes Disease Total Antibodies With Western Blot Reflex [id number] 01/27/2017 Cbc With Differential Ord2 WBC 4.65 K/ul 01/26/2017 Cbc With Differential Ord2 RBC 4.17 M/ul 01/26/2017 Cbc With Differential Ord2 HGB 12.7 g/dl 01/26/2017 Cbc With Differential Ord2 HCT 38.5 % 01/26/2017 Cbc With Differential Ord2 Neut% 57.7 % 01/26/2017 Cbc With Differential Ord2 MCV 92.3 fl 01/26/2017 Cbc With Differential Ord2 Lymph% 29.7 % 01/26/2017 Cbc With Differential Ord2 [place]% 7.5 % 01/26/2017 Cbc With Differential Ord2 MCH 30.5 pg 01/26/2017 Cbc With Differential Ord2 Eos% 4.7 % 01/26/2017 Cbc With Differential Ord2 MCHC 33.0 pg 01/26/2017 Cbc With Differential Ord2 PLT 204 K/ul 01/26/2017 Cbc With Differential Ord2 Baso% 0.4 % 01/26/2017 Cbc With Differential Ord2 RDW 14.3 % 01/26/2017 Cbc With Differential Ord2 Neut ABS# 2.68 K/ul 01/26/2017 Cbc With Differential Ord2 Lymph ABS# 1.38 K/ul 01/26/2017 Cbc With Differential Ord2 [place] ABS# 0.4 K/ul 01/26/2017 Cbc With Differential Ord2 Eos ABS# 0.2 K/ul 01/26/2017 Cbc With Differential Ord2 Baso ABS# 0.0 K/ul 01/26/2017 Vitamin D 25 Oh [id number] VITAMIN D, 25 HYDROXY 37.04 ng/mL C-Reactive Protein Qnt Crqnt CRP 0.1 mg/dl 01/26/2017 Sed Rate Ord21 ESR 16 mm/hr 01/26/2017 Comp Metabolic Fdm424 NA 142 mEq/L 01/26/2017 Comp Metabolic Lvk202 K 3.7 mEq/L 01/26/2017 Comp Metabolic Lqq713 CL 103 mEq/L 01/26/2017 Comp Metabolic Enb797 CO2 27.0 mEq/L 01/26/2017 Comp Metabolic Tvk547 ANION GAP 16 01/26/2017 Comp Metabolic Bfr987 GLUCOSE 105 mg/dL 01/26/2017 Comp Metabolic Pne523 Creat 0.6 mg/dL 01/26/2017 Comp Metabolic Moi214 eGFR 98 ml/min/1.73m2 01/26/2017 Comp Metabolic Djd475 BUN 14 mg/dL 01/26/2017 Comp Metabolic Bmn412 B/C Ratio 21.9 Ratio 01/26/2017 Comp Metabolic Ysc535 CALCIUM 9.8 mg/dL 01/26/2017 Comp Metabolic Xrv627 ALK PHOS 83 U/L 01/26/2017 Comp Metabolic Mbi826 AST(SGOT) 15 U/L 01/26/2017 Comp Metabolic Kcu392 ALT(SGPT) 18 U/L 01/26/2017 Comp Metabolic Plb746 BILI T 0.6 mg/dL 01/26/2017 Comp Metabolic Kwy922 ALBUMIN 4.5 g/dL 01/26/2017 Comp Metabolic Fgr671 TPRO 6.6 g/dL 01/26/2017 Comp Metabolic Awd431 GLOB 2.1 g/dL 01/26/2017 Comp Metabolic Bfo331 A/G Ratio 2.1 Ratio 01/26/2017 Comp Metabolic Axj495 Osmo 284 mOsmo 01/26/2017 Cbc With Differential Ord2 WBC 5.17 K/ul [...] 30.5 pg 04/10/2016 Cbc With Differential Ord2 [place]% 7.7 % 04/10/2016 Cbc With Differential Ord2 Eos% 3.1 % 04/10/2016 Cbc With Differential Ord2 MCHC 32.4 pg 04/10/2016 Cbc With Differential Ord2 Baso% 0.4 % 04/10/2016 Cbc With Differential Ord2 PLT 195 K/ul 04/10/2016 Cbc With Differential Ord2 RDW 14.9 % 04/10/2016 Cbc With Differential Ord2 Neut ABS# 3.35 K/ul 04/10/2016 Cbc With Differential Ord2 Lymph ABS# 1.24 K/ul 04/10/2016 Cbc With Differential Ord2 [place] ABS# 0.4 K/ul 04/10/2016 Cbc With Differential Ord2 Eos ABS# 0.2 K/ul 04/10/2016 Cbc With Differential Ord2 Baso ABS# 0.0 K/ul 04/10/2016 Free T4 Cwj250 FREE T4 0.80 ng/dL 04/10/2016 Tsh Ord6 hTSH II 1.95 uIU/mL 04/10/2016 Lipid Ord30 CHOL 178 mg/dL 04/10/2016 Lipid Ord30 HDL 45.0 mg/dl 04/10/2016 Lipid Ord30 TRIG 190 mg/dL 04/10/2016 Lipid Ord30 LDL 95 mg/dL 04/10/2016 Lipid Ord30 C/HDL 4.0 Ratio 04/10/2016 Comp Metabolic Xup333 NA 141 mEq/L 04/10/2016 Comp Metabolic Zpb124 K 3.6 mEq/L 04/10/2016 Comp Metabolic Asd732 CL 103 mEq/L 04/10/2016 Comp Metabolic Vlg554 CO2 32.0 mEq/L 04/10/2016 Comp Metabolic Kjq474 ANION GAP 10 04/10/2016 Comp Metabolic Cgw731 GLUCOSE 107 mg/dL 04/10/2016 Comp Metabolic Njo531 Creat 0.7 mg/dL 04/10/2016 Comp Metabolic Lsp683 eGFR 97 ml/min/1.73m2 04/10/2016 Comp Metabolic Hem733 BUN 15 mg/dL 04/10/2016 Comp Metabolic Llf049 B/C Ratio 23.1 Ratio 04/10/2016 Comp Metabolic Uxv211 CALCIUM 9.4 mg/dL 04/10/2016 Comp Metabolic Svd890 ALK PHOS 68 U/L 04/10/2016 Comp Metabolic Vgz448 AST(SGOT) 20 U/L 04/10/2016 Comp Metabolic Kxx755 ALT(SGPT) 23 U/L 04/10/2016 Comp Metabolic Pso950 BILI T 0.6 mg/dL 04/10/2016 Comp Metabolic Hia170 ALBUMIN 4.4 g/dL 04/10/2016 Comp Metabolic Egw105 TPRO 6.5 g/dL 04/10/2016 Comp Metabolic Lnp652 GLOB 2.1 g/dL 04/10/2016 Comp Metabolic Yui944 A/G Ratio 2.1 Ratio 04/10/2016 Comp Metabolic Rdq632 Osmo 283 mOsmo 04/10/2016 Review of Systems System Result Effective Dates Constitutional No recent illness 2017 Constitutional No [...] normal 12/08/2017 None Full Exam - General 1995 Ears/Nose/Throat lips/teeth/gingiva Overall: benign lips 12/08/2017 None [...] accomodation 07/29/2017 None Full Exam - General 1995 Ears/Nose/Throat oral cavity/pharynx/larynx Overall: oral mucosa clear 07/29/2017 None Full Exam - General 1995 Ears/Nose/Throat oral cavity/pharynx/larynx Overall: oropharyngeal mucosa clear [...] retractions 02/23/2017 None Full Exam - General 1995 Respiratory respiratory effort/rhythm Overall: normal rate 02/23/2017 None Full Exam - General 1994 Cardiovascular auscultation of heart Overall: regular rate 02/23/2017 None Full Exam - General 1994 Cardiovascular auscultation of heart Overall: normal heart sounds 02/23/2017 None Full Exam - General 1995 Musculoskeletal lower extremity Overall: full strength in LLE 02/23/2017 None Full Exam - General 1995 Musculoskeletal lower extremity Overall: normal LLE bulk [...] NO PRSV 4 KAIN 3 YRS+ CPT-4: 97273 04/15/2018 PPPS, INITIAL VISIT CPT-4: G0438 12/08/2017 ADMIN INFLUENZA VIRUS VAC CPT-4: G0008 04/07/2017 FLU VAC NO PRSV 4 KAIN 3 YRS+ CPT-4: 68870 04/07/2017 DRAIN/INJECT JOINT/BURSA CPT-4: 55062 01/26/2017 REMOVE SPINE LAMINA 1 LMBR CPT-4: 42235 Unknown Vital Signs Date Vital 06/10/2018 Blood Pressure 1: 138/72 Code : 8480-6 BMI: 29.6 Code : 54201-1 Heart Rate 1 : 80 bpm Height: 5'8" SpO2: 98% Weight: 195 lbs 05/10/2018 Blood Pressure 1: 150/80 Code : 8480-6 BMI: 29.5 Code : 38757-8 Heart Rate 1 : 72 bpm Height: 5'8" SpO2: 95% Weight: 194 lbs 04/01/2018 Blood Pressure 1: 140/72 Code : 8480-6 BMI: 29.2 Code : 52534-4 Heart Rate 1 : 75 bpm Height: 5'8" SpO2: 98% Weight: 192 lbs 02/04/2018 Blood Pressure 1: 130/72 Code : 8480-6 BMI: 29.2 Code : 87764-0 Heart Rate 1 : 74 bpm Height: 5'8" SpO2: 97% Weight: 192 lbs 01/12/2018 Blood Pressure 1: 134/72 Code : 8480-6 BMI: 29.6 Code : 79142-1 Heart Rate 1 : 77 bpm Height: 5'8" SpO2: 98% Weight: 195 lbs 11/18/2017 Blood Pressure 1: 122/74 Code : 8480-6 BMI: 30.6 Code : 19970-9 Heart Rate 1 : 81 bpm Height: 5'8" SpO2: 97% Weight: 201 lbs 10/27/2017 Blood Pressure 1: 146/74 Code : 8480-6 BMI: 31.3 Code : 77803-1 Heart Rate 1 : 87 bpm Height: 5'8" SpO2: 93% Weight: 206 lbs 07/29/2017 Blood Pressure 1: 130/76 Code : 8480-6 BMI: 30.9 Code : 07761-4 Heart Rate 1 : 91 bpm Height: 5'8" SpO2: 98% Weight: 203 lbs 06/30/2017 Blood Pressure 1: 122/64 Code : 8480-6 BMI: 30.3 Code : 11370-2 Heart Rate 1 : 82 bpm Height: 5'8" SpO2: 96% Weight: 199 lbs 05/19/2017 Blood Pressure 1: 136/68 Code : 8480-6 BMI: 30.1 Code : 52994-0 Heart Rate 1 : 83 bpm Height: 5'8" SpO2: 94% Weight: 198 lbs 04/07/2017 Blood Pressure 1: 142/74 Code : 8480-6 BMI: 29.3 Code : 31944-2 Heart Rate 1 : 79 bpm Height: 5'8" SpO2: 96% Weight: 193 lbs 02/23/2017 Blood Pressure 1: 150/86 Code : 8480-6 BMI: 28.9 Code : 29614-4 Heart Rate 1 : 71 bpm Height: 5'8" SpO2: 95% Weight: 190 lbs 01/26/2017 Blood Pressure 1: 118/70 Code : 8480-6 BMI: 29.3 Code : 97458-8 Heart Rate 1 : 75 bpm Height: 5'8" SpO2: 95% Temperature: 36.7 (C) / 98.1 (F) Weight: 193 lbs 01/09/2017 Blood Pressure 1: 144/78 Code : 8480-6 BMI: 29.3 Code : 47202-9 Heart Rate 1 : 84 bpm Height: 5'8" SpO2: 98% Weight: 193 lbs 10/07/2016 Blood Pressure 1: 122/74 Code : 8480-6 BMI: 30.0 Code : 71255-8 Heart Rate 1 : 82 bpm Height: 5'8" SpO2: 97% Weight: 197 lbs 04/01/2016 Blood Pressure 1: 130/76 Code : 8480-6 BMI: 30.6 Code : 47012-0 Heart Rate 1 : 71 bpm Height: 5'8" SpO2: 97% Weight: 201 lbs 8 oz 12/03/2015 Blood Pressure 1: 118/68 Code : 8480-6 Heart Rate 1: 73 bpm Height: SpO2: 98% Weight: 11/22/2015 Blood Pressure 1: 126/72 Code : 8480-6 BMI: 30.9 Code : 64947-7 Heart Rate 1 : 75 bpm Height: 5'8" SpO2: 95% Weight: 203 lbs 08/29/2015 Blood Pressure 1: 126/68 Code : 8480-6 BMI: 30.4 Code : 68293-4 Heart Rate 1 : 92 bpm Height: 5'8" SpO2: 97% Temperature: 36.9 (C) / 98.5 (F) Weight: 200 lbs 02/28/2015 Blood Pressure 1: 120/72 Code : 8480-6 BMI: 30.6 Code : 15807-8 Heart Rate 1 : 74 bpm Height: 5'8" SpO2: 96% Weight: 201 lbs 11/10/2014 Blood Pressure 1: 118/62 Code : 8480-6 BMI: 30.4 Code : 43617-3 Heart Rate 1 : 64 bpm Height: 5'8" Weight: 200 lbs Functional Status No Functional Status data History of Present Illness Symptom Name Status Result Effective Date Notes _ gastrointestinal complaints 06/10/2018 None _ Other: [...] data Encounters Encounter Performer Location Codes Date [id number] EST. PATIENT, LEVEL III Diagnosis: Encounter for follow-up examination after completed treatment for conditions other than malignant neoplasm[ICD10: Z09] Stephy Hardy MD, [facility] CPT-4: 10813 06/10/2018 ([id number]) [id number] EST. 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 PATIENT, LEVEL III Diagnosis: Low back pain[ICD10: M54.5] Diagnosis: Trochanteric bursitis, right hip[ICD10: M70.61] Stephy Hardy MD, [facility] CPT-4: 35999 04/01/2018 [id number] EST. PATIENT, LEVEL III Diagnosis: Gastro-esophageal reflux disease without esophagitis[ICD10: K21.9] Diagnosis: Diverticulitis of large intestine without perforation or abscess without bleeding[ICD10: K57.32] Stephy Hardy MD, [facility] CPT-4: 58532 02/04/2018 ([id number]) 31102 EST. PATIENT, LEVEL IV Diagnosis: Essential (primary) hypertension[ICD10: I10] Diagnosis: Low back pain[ICD10: M54.5] Diagnosis: Other fatigue[ICD10: R53.83] Subha Hardy MD, [facility] CPT- 4: 47903 01/12/2018 ([id number]) 07871 EST. PATIENT, LEVEL III Diagnosis: Essential (primary) hypertension[ICD10: I10] Diagnosis: Other fatigue[ICD10: R53.83] Subha Hardy MD, [facility] CPT- 4: 16331 11/18/2017 ([id number]) 22775 EST. PATIENT, LEVEL IV Diagnosis: Essential (primary) hypertension[ICD10: I10] Diagnosis: Atrophy of thyroid (acquired)[ICD10: E03.4] Subha Hardy MD, [facility] CPT-4: 99842 10/27/2017 ([id number]) 93942 EST. PATIENT, LEVEL III Diagnosis: Essential (primary) hypertension[ICD10: I10] Subha Hardy MD, [facility] CPT-4: 80222 07/29/2017 ([id number]) 98921 EST. PATIENT, LEVEL IV Diagnosis: Essential (primary) hypertension[ICD10: I10] Diagnosis: Slow transit constipation[ICD10: K59.01] Subha Hardy MD, [facility] CPT-4: 61585 06/30/2017 ([id number]) 64860 EST. 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 PATIENT, LEVEL IV Diagnosis: Myalgia[ICD10: M79.1] Diagnosis: Pain in right wrist[ICD10: M25.531] Stephy Hardy MD, [facility] CPT-4: 76035 02/23/2017 20050 EST. PATIENT, LEVEL IV Diagnosis: Pain in left ankle and joints of left foot[ICD10: M25.572] Diagnosis: Pain in right ankle and joints of right foot[ICD10: M25.571] Diagnosis: Pain in right hip[ICD10: M25.551] Diagnosis: Myalgia[ICD10: M79.1] Diagnosis: Vitamin D deficiency, unspecified[ICD10: E55.9] Diagnosis: Bitten or stung by nonvenomous insect and other nonvenomous arthropods, initial encounter[ICD10: W57.XXXA] Stephy Hardy MD, [facility] CPT-4: 86971 01/26/2017 55502 EST. PATIENT, LEVEL IV Diagnosis: Myalgia[ICD10: M79.1] Stephy Hardy MD, [facility] CPT-4: 33930 01/09/2017 ([id number]) 15493 EST. PATIENT, LEVEL IV Diagnosis: Essential (primary) hypertension[ICD10: I10] Diagnosis: Mixed hyperlipidemia[ICD10: E78.2] Diagnosis: Atrophy of thyroid (acquired)[ICD10: E03.4] Diagnosis: 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[ ICD10: D17.1] Subha Hardy MD, [facility] CPT-4: 13236 10/07/2016 ([id number]) 26573 EST. PATIENT, LEVEL IV Diagnosis: Essential (primary) hypertension[ICD10: I10] Diagnosis: Mixed hyperlipidemia[ICD10: E78.2] Diagnosis: Atrophy of thyroid (acquired)[ICD10: E03.4] Subha Hardy MD, [facility] CPT-4: 69874 04/01/2016 ([id number]) 99875 EST. PATIENT, LEVEL IV Diagnosis: Essential (primary) hypertension[ICD10: I10] Diagnosis: Hypothyroidism, unspecified[ICD10: E03.9] Diagnosis: Slow transit constipation[ICD10: K59.01] Diagnosis: Gastro-esophageal reflux disease without esophagitis[ICD10: K21.9] Subha Hardy MD, [facility] CPT-4: 89406 12/03/2015 65616 EST. PATIENT, LEVEL IV Diagnosis: Pain in right knee[ICD10: M25.561] Stephy Hardy MD, [facility] CPT-4: 51730 11/22/2015 ([id number]) 68293 EST. PATIENT, LEVEL IV Diagnosis: Essential (primary) hypertension[ICD10: I10] Diagnosis: Hypothyroidism, unspecified[ICD10: E03.9] Diagnosis: Acute frontal sinusitis, unspecified[ICD10: J01.10] [facility] CPT-4: 64811 08/29/2015 ([id number]) 03305 EST. 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 Hardy formulated the assessment and plan for the follow up on this patient's medical condition. 06/10/2018 Appointment: Stephy Hansen WPtel: [address] [place], [place] [phone] (15 min) Moderate 06/10/2018 Patient Education: Patient [...] control. 05/10/2018 Appointment: Subha Hardy WPtel: [phone] [facility] [place] (15 min) Moderate 05/10/2018 Patient Education: Patient Medication Summary Completed 05/10/2018 Care Plan: Referral Order SNOMED-CT : [id number] Pending 05/10/2018 Appointment: Injection 04/15/2018 Patient Education: [...] not improving. 04/01/2018 Appointment: Stephy Hansen WPtel: [facility] [place] (15 min) Moderate 04/01/2018 Patient Education: Patient Medication Summary Completed 04/01/2018 Patient Education: Back Pain Completed 04/01/2018 Care Plan: X-RAY EXAM L-S SPINE 2/3 VWS LOINC : 22072-6 Pending 04/01/2018 Visit Plan: Esophageal Reflux - [...] to upset the pt's stomach. 02/04/2018 Appointment: Stepyh Hansen WPtel: [facility] [place] (15 min) Moderate 02/04/2018 Patient Education: Patient [...] and naproxen. 01/12/2018 [facility]ment: [phone] [place] (15 min) Moderate 01/12/2018 Patient Education: Patient [...] is stable. 11/18/2017 Appointment: Subha Hardy WPtel: [facility] (15 min) Moderate 11/18/2017 Patient Education: Patient [...] 3 months. 10/27/2017 Appointment: Subha Hardy WPtel: [phone] [facility] (15 min) Moderate 10/27/2017 Patient Education: Patient Medication Summary Completed 10/27/2017 Appointment: Subha Hardy WPtel: [phone] [facility] (15 min) Moderate 08/18/2017 Visit Plan: Hypertension [...] improved symptoms. 07/29/2017 Appointment: Subha Hardy WPtel: [phone] [facility] (15 min) Moderate 07/29/2017 Patient Education: Patient [...] back, etc. 06/30/2017 Appointment: Subha Hardy WPtel: [phone] [facility] (15 min) Moderate 06/30/2017 Patient Education: Patient [...] on losartan. 05/19/2017 Appointment: Subha Hardy [facility]Ptel[facility] (15 min) Moderate 05/19/2017 Patient Education: Patient Medication Summary Completed 05/19/2017 App[facility]ment: [phone] [facility] (15 min) Moderate 05/12/2017 Visit Plan: Hypertension [...] the mixture. 04/07/2017 Appointment: [facility] [address] [facility] [place] (15 min) Moderate 04/07/2017 Patient Education: [...] or concerns. 02/23/2017 [facility]ment: [phone] [place] (15 min) Moderate 02/23/2017 Patient Education: Patient [...] or concerns. 01/26/2017 Appointment: [phone] (30 min) Complex 01/26/2017 Patient Education: Patient [...] this time. 10/07/2016 App[facility]ment: [phone] [facility] (15 min) Moderate 10/07/2016 Patient Education: Patient Medication Summary Completed 10/07/2016 Patient Education: Obesity Completed 10/07/2016 Patient Education: Hypertension Completed 10/07/2016 App[facility]ment: [phone] [facility] (15 min) Moderate 09/30/2016 Visit Plan: Hypertension [...] medications. 04/01/2016 Appointment: Subha Hardy WPtel: [phone] [facility] (15 min) Moderate 04/01/2016 Patient Education: Patient [...] prn miralax. 12/03/2015 Appointment: [phone] [facility] (15 min) Moderate 12/03/2015 Patient Education: [...] improve or with any concerns. 11/22/2015 Appointment: Tyrone Stephy [phone] [facility] (30 min) Complex 11/22/2015 Patient Education: Patient [...] improvement. 08/29/2015 Appointment: [phone] [facility] (15 min) Moderate 08/29/2015 Patient Education: Patient [...] this regimen. 02/28/2015 Appointment: Subha Hardy WPtel: [address] [place], [place] [id number] Follow up 02/28/2015 Patient Education: Patient Medication [...] on previous levels of control. Cyst of mncpxbi-gkslbpzlwkj-crryymm lipoma-call if changing or any concerns 11/10/2014 Appointment: (S) New Patient 11/10/2014 Patient Education: Patient Medication Summary Completed 11/10/2014 Patient Education: Hypertension Completed 11/10/2014 Care Plan: COMPLETE CBC AUTOMATED LOINC : 68722-8 Ordered 11/10/2014 Referral: Chuy Bustos Referral Appointment Requested Instructions Comment . Hypertension - well controlled - continue with current medications, continue with no added salt diet. Pt has been encouraged to exercise daily. The pt has been advised to call the office if there are any acute concerns about change in blood pressure readings at home. Recent surgery to low back - continue with physical therapy - improved symptoms. 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 vitamin D 5000 units daily vitamin b [...] Constipation - recommended power pudding, prn miralax. . Esophageal Reflux - the patient has [...] been proven to upset the pt's stomach. . Myalgias, Low back pain, SI joint [...] or with any changes, questions, or concerns. if you cannot get back to sleep [...] months based on previous levels of control. we are going to change your blood [...] management - repeat labs in 3 months. . Hypertension - well controlled - continue [...] in pain to her low back, etc. . Joint Injection - Pt was given [...] or with any changes, questions, or concerns. Power Pudding: equal parts of prune juice, [...] 8 ounces of water with the mixture. INCRREASE MIRALAX TO EVERY OTHER DAY FOR [...] on previous levels of control. Cyst of ibtqvst-dwarsvxsdpi-mtdstzo lipoma-call if changing or any concerns Co enzyme Q10 over the counter - [...] or with any questions, changes, or concerns. . Hypertension - well controlled [...] Call if symptoms do not show improvement. Prednisone for 5 days to help decrease [...] pt to call if not improving. . Hospital follow up - This was a follow up appointment from the patient's hospitalization during which time Dr. Hardy formulated the assessment and plan for the follow up on this patient's medical condition. decrease the gabapentin to 300mg twice daily [...] improved and if blood pressure is stable. get labs done next week get mammogram [...] assure normal liver response to medications. . Medicare Exam - today we discussed [...] D[employer] paperwork for health care surrogate. . Hypertension - well controlled - continue [...] if symptoms not improved on this regimen. . Right knee pain - pt states [...] pain - continue with gabapentin and naproxen. increase the trazodone to a full tablet at bedtime - call the office on Kash if the insomnia is not improved. kirsten [...]
--- OUTSIDE RECORDS SUMMARY | 2018-09-22 17:55 | XMS REPORT | CCD ---
Author Author Sandi Camp Organization [facility] Address [address] [place] [address] Phone Care Team Providers Care [employer] Name Role Phone PP Unavailable CCM Unavailable Summary Purpose Interface Exchange Insurance Providers Payer name Policy type / Coverage type Covered democrat ID Effective Begin Date Effective End Date WPS Medicare Part B Medicare Part B [id number] Unknown [employer] Medicare Part B [id number] Unknown Family history Brother sara Diagnosis Age [...] status Unknown 11/10/[address]: [id number] Never smoker 11/10/2014 Alcohol history Unknown occasionally [...] Start Date Stop Date Status Fill Instructions levothyroxine 125 mcg tablet RxNorm: 541556 TAKE 1 TABLET EVERY DAY 06/02/2018 11/28/2018 Active gabapentin 300 mg capsule RxNorm: 994618 1 Capsule(s) PO QID 05/04/2019 Active update on her script trazodone 50 mg tablet RxNorm: 170623 1.5 Tablet(s) PO QHS 07/03/2019 Active pantoprazole 40 mg tablet,delayed release RxNorm: 858889 1 Tablet(s) PO daily 04/16/2018 04/10/2019 Active prednisone 20 mg tablet RxNorm: 375599 2 Tablet(s) PO daily 04/05/2018 Inactive losartan 100 mg tablet RxNorm: 045041 1 Tablet(s) PO daily 04/29/2019 Active Cipro 500 mg tablet RxNorm: 857934 1 Tablet(s) PO BID x 3 days to equal a total of 10 days 02/04/2018 02/06/2018 Inactive Flagyl 500 mg tablet RxNorm: 745989 1 Tablet(s) PO TID x 3 days to equal a total of 10 days 02/04/2018 02/06/2018 Inactive Carafate 1 gram tablet RxNorm: 935505 1 Tablet(s) PO QID 201703/05/2018 Inactive gabapentin 300 mg capsule RxNorm: 488756 1 Capsule(s) PO TID 05/09/2018 Inactive update on her script levothyroxine 125 mcg tablet RxNorm: 743146 TAKE 1 TABLET EVERY DAY 12/29/2017 06/01/2018 Inactive gabapentin 300 mg capsule RxNorm: 654752 1 Capsule(s) PO BID 01/11/2018 Inactive Norvasc 5 mg tablet RxNorm: 841700 1 Tablet(s) PO daily 201701/19/2019 Active losartan 100 mg tablet RxNorm: 669294 1 Tablet(s) PO daily 02/03/2018 Inactive levothyroxine 125 mcg tablet RxNorm: 731473 Tablet(s) TAKE 1 TABLET EVERY DAY 08/13/2017 12/28/2017 Inactive Zithromax Z-Nirav 250 mg tablet RxNorm: 211238 1 Tablet(s) PO UD 07/02/2017 11/17/2017 Inactive zpack as directed trazodone 50 mg tablet RxNorm: 283156 1 Tablet(s) PO QHS 201605/09/2018 Inactive losartan 50 mg tablet RxNorm: 554610 1 Tablet(s) PO daily 201610/26/2017 Inactive pantoprazole 40 mg tablet,delayed release RxNorm: 437885 1 Tablet(s) PO daily 04/07/2017 04/01/2018 Inactive trazodone 50 mg tablet RxNorm: 798459 1/2 Tablet(s) PO QHS 05/25/2017 Inactive prednisone 20 mg tablet RxNorm: 425725 2 Tablet(s) PO daily 04/201702/27/2017 Inactive baclofen 10 mg tablet RxNorm: 436211 1 Tablet(s) PO TID 201602/06/2018 Inactive gabapentin 300 mg capsule RxNorm: 117832 1 Capsule(s) PO TID 11/17/2017 Inactive Vitamin D3 5,000 unit tablet RxNorm: 180313 1 Tablet(s) PO daily 02/11/2017 No Stop Date Active levothyroxine 125 mcg tablet RxNorm: 240165 TAKE 1 TABLET EVERY DAY 02/10/2017 05/10/2017 Inactive Kenalog 40 mg/mL suspension for injection RxNorm: 0293625 1 Milliliter(s) Inj 01/26/2017 01/26/2017 Inactive doxycycline hyclate 100 mg capsule RxNorm: 3942339 1 Capsule(s) PO BID 01/26/2017 02/04/2017 Inactive Norvasc 10 mg tablet RxNorm: 637956 1 Tablet(s) PO daily 201610/26/2017 Inactive Lipitor 20 mg tablet RxNorm: 790858 1 Tablet(s) PO QPM 201501/05/2017 Inactive sent on 12/25 also levothyroxine 125 mcg tablet RxNorm: 931924 1 Tablet(s) PO daily 12/28/2015 02/09/2017 Inactive 2nd escribe for this medication sent 12/25 Ziac 10 mg-6.25 mg tablet RxNorm: 847860 Tablet(s) TAKE ONE TABLET BY MOUTH DAILY 12/28/2015 10/06/2016 Inactive sent on 12/25 also levothyroxine 125 mcg tablet RxNorm: 273568 1 Tablet(s) PO daily 12/26/2015 12/27/2015 Inactive Lipitor 20 mg tablet RxNorm: 194133 1 Tablet(s) PO QPM 201512/27/2015 Inactive Ziac 10 mg-6.25 mg tablet RxNorm: 938352 Tablet(s) TAKE ONE TABLET BY MOUTH DAILY 12/26/2015 12/27/2015 Inactive Ziac 10 mg-6.25 mg tablet RxNorm: 484233 TAKE ONE TABLET BY MOUTH DAILY 11/27/2015 12/25/2015 Inactive hydrocodone 5 mg-acetaminophen 325 mg tablet RxNorm: 004501 1 Tablet(s) PO Q4-6H 11/22/2015 03/31/2016 Inactive prednisone 20 mg tablet RxNorm: 634540 3 Tablet(s) PO daily 09/02/2015 Inactive azithromycin 250 mg tablet RxNorm: 139885 2 Tablet(s) PO on day #1, then 1pill daily x 4 days 08/29/2015 12/02/2015 Inactive Lipitor 20 mg tablet RxNorm: 162941 1 Tablet(s) PO QPM 201412/25/2015 Inactive levothyroxine 125 mcg tablet RxNorm: 789790 1 Tablet(s) PO daily 04/25/2015 12/25/2015 Inactive Ziac 10 mg-6.25 mg tablet RxNorm: 902003 1 Tablet(s) PO daily 03/12/2015 10/07/2015 Inactive Fish Oil oral RxNorm: 9320191 oral No Start Date Active Aspirin Low Dose 81 mg tablet,delayed release RxNorm: 345050 1 Tablet(s) PO daily No Start Date Active tramadol 37.5 mg-acetaminophen 325 mg tablet RxNorm: 550392 Tablet(s) PO PRN No Start Date Active carvedilol 6.25 mg tablet RxNorm: 743242 1 Tablet(s) PO BID No Start Date Active Calcium RxNorm: 1 PO daily No Start Date Active Glucosamine Chondroitin Maximum Strength oral RxNorm: 4845 oral No Start Date Active Probiotic oral RxNorm : 6205 oral No Start Date Active multivitamin tablet RxNorm: 1 Tablet(s) PO daily No Start Date Active Vitamin B-6 oral RxNorm: 859270 oral No Start Date Active carvedilol 6.25 mg tablet RxNorm: 971236 1 Tablet(s) PO BID No Start Date Active Vitamin C oral RxNorm : 1151 oral No Start Date Active Vitamin B-12 oral RxNorm: 20730 oral No Start Date Active cetirizine 10 mg tablet RxNorm: 1525903 1 Tablet(s) PO daily No Start Date Active naproxen 500 mg tablet RxNorm: 443119 1 Tablet(s) PO BID No Start Date Active potassium chloride ER 10 mEq tablet,extended release RxNorm: 776250 1 Tablet(s) PO daily Dr Lopez No Start Date Active Lipitor 20 mg tablet RxNorm: 163401 1 Tablet(s) PO daily No Start Date 06/11/2015 Inactive baclofen 10 mg tablet RxNorm: 552727 1 Tablet(s) PO TID No Start Date 02/11/2017 Inactive gabapentin 600 mg tablet RxNorm: 926964 1 Tablet(s) PO TID No Start Date 01/22/2017 Inactive Zithromax Z-Nirav 250 mg tablet RxNorm: 174679 1 Tablet(s) PO UD No Start Date 07/01/2017 Inactive zpack as directed levothyroxine 125 mcg capsule RxNorm: 276831 1 Capsule(s) PO daily No Start Date 04/24/2015 Inactive Ziac 10 mg-6.25 mg tablet RxNorm: 963370 1 Tablet(s) PO daily No Start Date 03/11/2015 Inactive gabapentin 300 mg capsule RxNorm: 365757 1 Capsule(s) PO TID No Start Date 02/11/2017 Inactive lisinopril 10 mg tablet RxNorm: 704377 1 Tablet(s) PO daily No Start Date 05/18/2017 Inactive Protonix 40 mg granules delayed-release packet RxNorm: 782765 1 PO daily No Start Date 04/06/2017 Inactive cyclobenzaprine 10 mg tablet RxNorm: 622720 1 Tablet(s) PO daily No Start Date 12/07/2017 Inactive hydrochlorothiazide 25 mg tablet RxNorm: 194276 1 Tablet(s) PO daily No Start Date 12/07/2017 Inactive Norvasc 10 mg tablet RxNorm: 715230 2 Tablet(s) PO daily No Start Date 10/06/2016 Inactive Vitamin D3 oral RxNorm : oral No Start Date 02/10/2017 Inactive Medication Administered Medication Codes Instructions Start Date Status Kenalog 40 mg/mL suspension for injection RxNorm: 4004843 1Milliliter 01/26/2017 No longer Active Immunizations Vaccine [...] right leg ICD-10: M79.604 ICD-9: 729.5 05/10/2018 Atrophy of thyroid (acquired) ICD-10: E03.4 ICD-9: 244.8 05/10/2018 Encounter for immunization ICD-10: Z23 ICD-9: [...] 12.8 g/dl 05/29/2017 Cbc With Differential Ord2 Neut% 60.4 % 05/29/2017 Cbc With Differential Ord2 HCT 39.8 % 05/29/2017 Cbc With Differential Ord2 Lymph% 27.1 % 05/29/2017 Cbc With Differential Ord2 MCV 92.8 fl 05/29/2017 Cbc With Differential Ord2 MCH 29.8 pg 05/29/2017 Cbc With Differential Ord2 [place]% 7.9 % 05/29/2017 Cbc With Differential Ord2 [...] 1.17 K/ul 05/29/2017 Cbc With Differential Ord2 [place] ABS# 0.3 K/ul 05/29/2017 Cbc With Differential Ord2 Eos ABS# 0.2 K/ul 05/29/2017 Cbc With Differential Ord2 Baso ABS# 0.0 K/ul 05/29/2017 Tsh Ord6 hTSH II 1.70 uIU/mL 05/29/2017 Free T4 Gzp701 FREE T4 0.84 ng/dL 05/29/2017 Lipid Ord30 CHOL 261 mg/dL 05/29/2017 Lipid Ord30 HDL 51.0 mg/dl 05/29/2017 Lipid Ord30 TRIG 165 mg/dL 05/29/2017 Lipid Ord30 LDL 177 mg/dL 05/29/2017 Lipid Ord30 C/HDL 5.1 Ratio 05/29/2017 Comp Metabolic Zsk314 NA 143 mEq/L 05/29/2017 Comp Metabolic Kwy051 K 3.5 mEq/L 05/29/2017 Comp Metabolic Gnn147 CL 103 mEq/L 05/29/2017 Comp Metabolic Dvv756 CO2 29.0 mEq/L 05/29/2017 Comp Metabolic Xly837 ANION GAP 15 05/29/2017 Comp Metabolic Cmw294 GLUCOSE 122 mg/dL 05/29/2017 Comp Metabolic Fmf595 Creat 0.6 mg/dL 05/29/2017 Comp Metabolic Mkw444 eGFR 102 ml/min/1.73m2 05/29/2017 Comp Metabolic Gor890 BUN 11 mg/dL 05/29/2017 Comp Metabolic Xmu206 B/C Ratio 17.7 Ratio 05/29/2017 Comp Metabolic Zlw044 CALCIUM 9.6 mg/dL 05/29/2017 Comp Metabolic Spa248 ALK PHOS 79 U/L 05/29/2017 Comp Metabolic Eft940 AST(SGOT) 16 U/L 05/29/2017 Comp Metabolic Xde597 ALT(SGPT) 17 U/L 05/29/2017 Comp Metabolic Bxy008 BILI T 0.6 mg/dL 05/29/2017 Comp Metabolic Uvc604 ALBUMIN 4.6 g/dL 05/29/2017 Comp Metabolic Pkf043 TPRO 6.7 g/dL 05/29/2017 Comp Metabolic Onc083 GLOB 2.1 g/dL 05/29/2017 Comp Metabolic Yrp579 A/G Ratio 2.1 Ratio 05/29/2017 Comp Metabolic Jky104 Osmo 286 mOsmo 05/29/2017 [place] Spotted Fever Igg/Igm 380109 SKIP MT SPOTTED FEVER IGM EIA . 01/30/2017 [place] Spotted Fever Igg/Igm 315506 RMSF, IGM 0.31 index 01/30/2017 [place] Spotted Fever Igg/Igm 091522 SKIP MT SPOTTED FEVER IGG EIA FLEX . 01/30/2017 [place] Spotted Fever Igg/Igm 541119 RMSF, IGG SCREEN-FLEX Negative 01/30/2017 Ehrlichia Chaffeensis Antibody Igm 732957 EHRLICHIA CHAFFEENSIS IGM < 1:16 01/30/2017 Ehrlichia Chaffeensis Antibody Igg 539918 EHRLICHIA CHAFFEENSIS IGG <1:64 01/30/2017 Lymes Disease Total Antibodies With Western Blot Reflex [id number] B. BURGDORFERI, IGG/IGM 0.12 LI 01/27/2017 Lymes Disease Total Antibodies With Western Blot Reflex [id number] 01/27/2017 Vitamin D 25 Oh Jgq6604 VITAMIN D, 25 HYDROXY 37.04 ng/mL Sed [...] 30.5 pg 01/26/2017 Cbc With Differential Ord2 [place]% 7.5 % 01/26/2017 Cbc With Differential Ord2 Eos% 4.7 % 01/26/2017 Cbc With Differential Ord2 MCHC 33.0 pg 01/26/2017 Cbc With Differential Ord2 Baso% 0.4 % 01/26/2017 Cbc With Differential Ord2 PLT 204 K/ul 01/26/2017 Cbc With Differential Ord2 RDW 14.3 % 01/26/2017 Cbc With Differential Ord2 Neut ABS# 2.68 K/ul 01/26/2017 Cbc With Differential Ord2 Lymph ABS# 1.38 K/ul 01/26/2017 Cbc With Differential Ord2 [place] ABS# 0.4 K/ul 01/26/2017 Cbc With Differential Ord2 Eos ABS# 0.2 K/ul 01/26/2017 Cbc With Differential Ord2 Baso ABS# 0.0 K/ul 01/26/2017 C-Reactive Protein Qnt Crqnt CRP 0.1 mg/dl 01/26/2017 Comp Metabolic Uwz308 NA 142 mEq/L 01/26/2017 Comp Metabolic Tsm463 K 3.7 mEq/L 01/26/2017 Comp Metabolic Shi879 CL 103 mEq/L 01/26/2017 Comp Metabolic Tdp031 CO2 27.0 mEq/L 01/26/2017 Comp Metabolic Zac787 ANION GAP 16 01/26/2017 Comp Metabolic Nqk748 GLUCOSE 105 mg/dL 01/26/2017 Comp Metabolic Jbg014 Creat 0.6 mg/dL 01/26/2017 Comp Metabolic Krp418 eGFR 98 ml/min/1.73m2 01/26/2017 Comp Metabolic Tzk595 BUN 14 mg/dL 01/26/2017 Comp Metabolic Twi345 B/C Ratio 21.9 Ratio 01/26/2017 Comp Metabolic Hhp444 CALCIUM 9.8 mg/dL 01/26/2017 Comp Metabolic Nki570 ALK PHOS 83 U/L 01/26/2017 Comp Metabolic Tms166 AST(SGOT) 15 U/L 01/26/2017 Comp Metabolic Grc193 ALT(SGPT) 18 U/L 01/26/2017 Comp Metabolic Alb662 BILI T 0.6 mg/dL 01/26/2017 Comp Metabolic Dtf053 ALBUMIN 4.5 g/dL 01/26/2017 Comp Metabolic Wqe675 TPRO 6.6 g/dL 01/26/2017 Comp Metabolic Ttu963 GLOB 2.1 g/dL 01/26/2017 Comp Metabolic Uue241 A/G Ratio 2.1 Ratio 01/26/2017 Comp Metabolic Ost185 Osmo 284 mOsmo 01/26/2017 Lipid Ord30 CHOL [...] 12.2 g/dl 04/10/2016 Cbc With Differential Ord2 Neut% 64.8 % 04/10/2016 Cbc With Differential Ord2 HCT 37.7 % 04/10/2016 Cbc With Differential Ord2 MCV 94.3 fl 04/10/2016 Cbc With Differential Ord2 Lymph% 24.0 % 04/10/2016 Cbc With Differential Ord2 [place]% 7.7 % 04/10/2016 Cbc With Differential Ord2 MCH 30.5 pg 04/10/2016 Cbc With Differential Ord2 Eos% 3.1 % 04/10/2016 Cbc With Differential Ord2 MCHC 32.4 pg 04/10/2016 Cbc With Differential Ord2 Baso% 0.4 % 04/10/2016 Cbc With Differential Ord2 PLT 195 K/ul 04/10/2016 Cbc With Differential Ord2 Neut ABS# 3.35 K/ul 04/10/2016 Cbc With Differential Ord2 RDW 14.9 % 04/10/2016 Cbc With Differential Ord2 Lymph ABS# 1.24 K/ul 04/10/2016 Cbc With Differential Ord2 [place] ABS# 0.4 K/ul 04/10/2016 Cbc With Differential Ord2 Eos ABS# 0.2 K/ul 04/10/2016 Cbc With Differential Ord2 Baso ABS# 0.0 K/ul 04/10/2016 Comp Metabolic Mtn211 NA 141 mEq/L 04/10/2016 Comp Metabolic Nlj573 K 3.6 mEq/L 04/10/2016 Comp Metabolic Vzn038 CL 103 mEq/L 04/10/2016 Comp Metabolic Uyt557 CO2 32.0 mEq/L 04/10/2016 Comp Metabolic Ahj109 ANION GAP 10 04/10/2016 Comp Metabolic Qck652 GLUCOSE 107 mg/dL 04/10/2016 Comp Metabolic Xga095 Creat 0.7 mg/dL 04/10/2016 Comp Metabolic Pcr963 eGFR 97 ml/min/1.73m2 04/10/2016 Comp Metabolic Qaf537 BUN 15 mg/dL 04/10/2016 Comp Metabolic Lsr054 B/C Ratio 23.1 Ratio 04/10/2016 Comp Metabolic Njj788 CALCIUM 9.4 mg/dL 04/10/2016 Comp Metabolic Pyn983 ALK PHOS 68 U/L 04/10/2016 Comp Metabolic Vvh679 AST(SGOT) 20 U/L 04/10/2016 Comp Metabolic Ccv371 ALT(SGPT) 23 U/L 04/10/2016 Comp Metabolic Ljq936 BILI T 0.6 mg/dL 04/10/2016 Comp Metabolic Ffl917 ALBUMIN 4.4 g/dL 04/10/2016 Comp Metabolic Bdw249 TPRO 6.5 g/dL 04/10/2016 Comp Metabolic Ylu892 GLOB 2.1 g/dL 04/10/2016 Comp Metabolic Gko648 A/G Ratio 2.1 Ratio 04/10/2016 Comp Metabolic Gqd883 Osmo 283 mOsmo 04/10/2016 Free T4 Erb405 FREE T4 0.80 ng/dL 04/10/2016 Review of [...] tone 02/23/2017 None Full Exam - General 1995 Musculoskeletal gait and station Overall: normal gait [...] NO PRSV 4 KAIN 3 YRS+ CPT-4: 32621 04/15/2018 PPPS, INITIAL VISIT CPT-4: G0438 12/08/2017 ADMIN INFLUENZA VIRUS VAC CPT-4: G0008 04/07/2017 FLU VAC NO PRSV 4 KAIN 3 YRS+ CPT-4: 19839 04/07/2017 DRAIN/INJECT JOINT/BURSA CPT-4: 58096 01/26/2017 REMOVE SPINE LAMINA 1 LMBR CPT-4: 59971 Unknown Vital Signs Date Vital 06/10/2018 Blood Pressure 1: 138/72 Code : 8480-6 BMI: 29.6 Code : 36745-1 Heart Rate 1 : 80 bpm Height: 5'8" SpO2: 98% Weight: 195 lbs 05/10/2018 Blood Pressure 1: 150/80 Code : 8480-6 BMI: 29.5 Code : 96883-1 Heart Rate 1 : 72 bpm Height: 5'8" SpO2: 95% Weight: 194 lbs 04/01/2018 Blood Pressure 1: 140/72 Code : 8480-6 BMI: 29.2 Code : 13213-0 Heart Rate 1 : 75 bpm Height: 5'8" SpO2: 98% Weight: 192 lbs 02/04/2018 Blood Pressure 1: 130/72 Code : 8480-6 BMI: 29.2 Code : 12732-6 Heart Rate 1 : 74 bpm Height: 5'8" SpO2: 97% Weight: 192 lbs 01/12/2018 Blood Pressure 1: 134/72 Code : 8480-6 BMI: 29.6 Code : 45042-8 Heart Rate 1 : 77 bpm Height: 5'8" SpO2: 98% Weight: 195 lbs 11/18/2017 Blood Pressure 1: 122/74 Code : 8480-6 BMI: 30.6 Code : 99610-4 Heart Rate 1 : 81 bpm Height: 5'8" SpO2: 97% Weight: 201 lbs 10/27/2017 Blood Pressure 1: 146/74 Code : 8480-6 BMI: 31.3 Code : 43739-9 Heart Rate 1 : 87 bpm Height: 5'8" SpO2: 93% Weight: 206 lbs 07/29/2017 Blood Pressure 1: 130/76 Code : 8480-6 BMI: 30.9 Code : 72243-5 Heart Rate 1 : 91 bpm Height: 5'8" SpO2: 98% Weight: 203 lbs 06/30/2017 Blood Pressure 1: 122/64 Code : 8480-6 BMI: 30.3 Code : 33209-9 Heart Rate 1 : 82 bpm Height: 5'8" SpO2: 96% Weight: 199 lbs 05/19/2017 Blood Pressure 1: 136/68 Code : 8480-6 BMI: 30.1 Code : 11057-2 Heart Rate 1 : 83 bpm Height: 5'8" SpO2: 94% Weight: 198 lbs 04/07/2017 Blood Pressure 1: 142/74 Code : 8480-6 BMI: 29.3 Code : 90890-2 Heart Rate 1 : 79 bpm Height: 5'8" SpO2: 96% Weight: 193 lbs 02/23/2017 Blood Pressure 1: 150/86 Code : 8480-6 BMI: 28.9 Code : 19121-5 Heart Rate 1 : 71 bpm Height: 5'8" SpO2: 95% Weight: 190 lbs 01/26/2017 Blood Pressure 1: 118/70 Code : 8480-6 BMI: 29.3 Code : 83239-3 Heart Rate 1 : 75 bpm Height: 5'8" SpO2: 95% Temperature: 36.7 (C) / 98.1 (F) Weight: 193 lbs 01/09/2017 Blood Pressure 1: 144/78 Code : 8480-6 BMI: 29.3 Code : 33295-1 Heart Rate 1 : 84 bpm Height: 5'8" SpO2: 98% Weight: 193 lbs 10/07/2016 Blood Pressure 1: 122/74 Code : 8480-6 BMI: 30.0 Code : 54628-5 Heart Rate 1 : 82 bpm Height: 5'8" SpO2: 97% Weight: 197 lbs 04/01/2016 Blood Pressure 1: 130/76 Code : 8480-6 BMI: 30.6 Code : 09596-6 Heart Rate 1 : 71 bpm Height: 5'8" SpO2: 97% Weight: 201 lbs 8 oz 12/03/2015 Blood Pressure 1: 118/68 Code : 8480-6 Heart Rate 1: 73 bpm Height: SpO2: 98% Weight: 11/22/2015 Blood Pressure 1: 126/72 Code : 8480-6 BMI: 30.9 Code : 09628-7 Heart Rate 1 : 75 bpm Height: 5'8" SpO2: 95% Weight: 203 lbs 08/29/2015 Blood Pressure 1: 126/68 Code : 8480-6 BMI: 30.4 Code : 85359-3 Heart Rate 1 : 92 bpm Height: 5'8" SpO2: 97% Temperature: 36.9 (C) / 98.5 (F) Weight: 200 lbs 02/28/2015 Blood Pressure 1: 120/72 Code : 8480-6 BMI: 30.6 Code : 44843-2 Heart Rate 1 : 74 bpm Height: 5'8" SpO2: 96% Weight: 201 lbs 11/10/2014 Blood Pressure 1: 118/62 Code : 8480-6 BMI: 30.4 Code : 17583-8 Heart Rate 1 : 64 bpm Height: [...] Performer Location Codes Date EST. PATIENT, LEVEL III Diagnosis: Encounter for follow-up examination after completed treatment for conditions other than malignant neoplasm[ICD10: Z09] Stephy Hardy MD, [facility] CPT-4: 67344 06/10/2018 ([id number]) 95335 EST. 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 PATIENT, LEVEL III Diagnosis: Low back pain[ICD10: M54.5] Diagnosis: Trochanteric bursitis, right hip[ICD10: M70.61] Stephy Hardy MD, [facility] CPT-4: 41290 04/01/2018 33835 EST. PATIENT, LEVEL III Diagnosis: Gastro-esophageal reflux disease without esophagitis[ICD10: K21.9] Diagnosis: Diverticulitis of large intestine without perforation or abscess without bleeding[ICD10: K57.32] Stephy Hardy MD, [facility] CPT-4: 94882 02/04/2018 ([id number]) 02556 EST. PATIENT, LEVEL IV Diagnosis: Essential (primary) hypertension[ICD10: I10] Diagnosis: Low back pain[ICD10: M54.5] Diagnosis: Other fatigue[ICD10: R53.83] Subha Hardy MD, [facility] CPT- 4: 29423 01/12/2018 ([id number]) 20961 EST. PATIENT, LEVEL III Diagnosis: Essential (primary) hypertension[ICD10: I10] Diagnosis: Other fatigue[ICD10: R53.83] Subha Hardy MD, [facility] CPT- 4: 74664 11/18/2017 ([id number]) 10242 EST. PATIENT, LEVEL IV Diagnosis: Essential (primary) hypertension[ICD10: I10] Diagnosis: Atrophy of thyroid (acquired)[ICD10: E03.4] Subha Hardy MD, [facility] CPT-4: 56408 10/27/2017 ([id number]) 48714 EST. PATIENT, LEVEL III Diagnosis: Essential (primary) hypertension[ICD10: I10] Subha Hardy MD [facility] CPT-4: 75164 07/29/2017 ([id number]) 76139 EST. PATIENT, LEVEL IV Diagnosis: Essential (primary) hypertension[ICD10: I10] Diagnosis: Slow transit constipation[ICD10: K59.01] Subha Hardy MD, [facility] CPT-4: 52702 06/30/2017 ([id number]) 51922 EST. 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 PATIENT, LEVEL IV Diagnosis: Myalgia[ICD10: M79.1] Diagnosis: Pain in right wrist[ICD10: M25.531] Stephy Hardy MD, [facility] CPT-4: 83777 02/23/2017 36989 EST. PATIENT, LEVEL IV Diagnosis: Pain in left ankle and joints of left foot[ICD10: M25.572] Diagnosis: Pain in right ankle and joints of right foot[ICD10: M25.571] Diagnosis: Pain in right hip[ICD10: M25.551] Diagnosis: Myalgia[ICD10: M79.1] Diagnosis: Vitamin D deficiency, unspecified[ICD10: E55.9] Diagnosis: Bitten or stung by nonvenomous insect and other nonvenomous arthropods, initial encounter[ICD10: W57.XXXA] Stephy Hardy MD, [facility] CPT-4: 76276 01/26/2017 [id number] EST. PATIENT, LEVEL IV Diagnosis: Myalgia[ICD10: M79.1] Stephy Hardy MD, [facility] CPT-4: 92523 01/09/2017 ([id number]) 98493 EST. 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 PATIENT, LEVEL IV Diagnosis: Essential (primary) hypertension[ICD10: I10] Diagnosis: Mixed hyperlipidemia[ICD10: E78.2] Diagnosis: Atrophy of thyroid (acquired)[ICD10: E03.4] Subha Hardy MD, [facility] CPT-4: 33256 04/01/2016 ([id number]) 27844 EST. PATIENT, LEVEL IV Diagnosis: Essential (primary) hypertension[ICD10: I10] Diagnosis: Hypothyroidism, unspecified[ICD10: E03.9] Diagnosis: Slow transit constipation[ICD10: K59.01] Diagnosis: Gastro-esophageal reflux disease without esophagitis[ICD10: K21.9] Subha Hardy MD, [facility] CPT-4: 06689 12/03/2015 08624 EST. PATIENT, LEVEL IV Diagnosis: Pain in right knee[ICD10: M25.561] Stephy Hardy MD, [facility] CPT-4: 37489 11/22/2015 ([id number]) 15035 EST. PATIENT, LEVEL IV Diagnosis: Essential (primary) hypertension[ICD10: I10] Diagnosis: Hypothyroidism, unspecified[ICD10: E03.9] Diagnosis: Acute frontal sinusitis, unspecified[ICD10: J01.10] Subha Hardy MD, [facility] CPT-4: 82499 08/29/2015 ([id number]) 94305 EST. 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 Hardy formulated the assessment and plan for the follow up on this patient's medical condition. 06/10/2018 Patient Education: Patient Medication Summary Completed [...] of control. 05/10/2018 App[facility]ment[facility] [phone] [facility] [place] (15 min) Moderate 05/10/2018 Patient Education: Patient Medication Summary Completed 05/10/2018 Care Plan: Referral Order SNOMED-CT : [id number] Pending 05/10/2018 Appointment: Injection 04/15/2018 Patient Education: [...] not improving. 04/01/2018 Appointment: Stephy Hansen WPtel: [facility] (15 min) Moderate 04/01/2018 Patient Education: Patient Medication Summary Completed 04/01/2018 Patient Education: Back Pain Completed 04/01/2018 Care Plan: X-RAY EXAM L-S SPINE 2/3 VWS LOINC : 91617-4 Pending 04/01/2018 Visit Plan: Esophageal Reflux - [...] pt's stomach. 02/04/2018 Appointment: Stephy Hansen WPtel: [facility]4 [id number] [place] (15 min) Moderate 02/04/2018 Patient [...] continue with gabapentin and naproxen. 01/12/2018 Appointment: Subah Hardy WPtel: [facility] (15 min) Moderate 01/12/2018 Patient Education: Patient [...] is stable. 11/18/2017 Appointment: Subha Hardy WPtel: [facility]6 [facility] (15 min) Moderate 11/18/2017 Patient Education: Patient [...] months. 10/27/2017 Appointment: Subha Hardy [facility]el: [facility] [facility] (15 min) Moderate 10/27/2017 Patient Education: Patient Medication Summary Completed 10/27/2017 Appointment: Subha Hardy WPtel: [facility]7 [facility] (15 min) Moderate 08/18/2017 Visit Plan: Hypertension [...] symptoms. 07/29/2017 Appointment: Subha Hardy WPtel: [facility]0 [facility] (15 min) Moderate 07/29/2017 Patient Education: Patient [...] back, etc. 06/30/2017 Appointment: Subha Hardy WPtel: [phone] [facility] (15 min) Moderate 06/30/2017 Patient Education: Patient [...] on losartan. 05/19/2017 Appointment: Subha Hardy WPtel: [phone] [facility] (15 min) Moderate 05/19/2017 Patient Education: Patient Medication Summary Completed 05/19/2017 Appointment: Subha Hardy WPtel: [phone] [facility] (15 min) Moderate 05/12/2017 Visit Plan: Hypertension [...] the mixture. 04/07/2017 App[facility]ment: [phone] [place] (15 min) Moderate 04/07/2017 Patient Education: [...] concerns. 02/23/2017 Appointment: Stephy Hansen [facility]Ptel: [facility] [place] (15 min) Moderate 02/23/2017 Patient Education: [...] or concerns. 01/26/2017 Appointment: [phone] [place] (30 min) Complex 01/26/2017 Patient Education: Patient [...] time. 10/07/2016 Appointment: Sub[facility]el[phone] (15 min) Moderate 10/07/2016 Patient Education: Patient Medication Summary Completed 10/07/2016 Patient Education: Obesity Completed 10/07/2016 Patient Education: Hypertension Completed 10/07/2016 Appointment: Sub[facility] Hardy [facility]el[phone] [facility] (15 min) Moderate 09/30/2016 Visit Plan: Hypertension [...] medications. 04/01/2016 Appointment: Sub[facility] Hardy [facility]Ptel: [phone] [facility] (15 min) Moderate 04/01/2016 Patient Education: Patient [...] prn miralax. 12/03/2015 Appointment: Sub[facility] Hardy [facility]Ptel: [phone] [facility] (15 min) Moderate 12/03/2015 Patient Education: Patient [...] any concerns. 11/22/2015 Appointment: Stephy Hansen WPtel: [phone] [facility] (30 min) Complex 11/22/2015 Patient Education: Patient [...] show improvement. 08/29/2015 Appointment: Subha Hardy WPtel: [facility]5 [facility] (15 min) Moderate 08/29/2015 Patient Education: Patient [...] regimen. 02/28/2015 Appointment: Subha Hardy WPtel: [facility] Follow up 02/28/2015 Patient Education: Patient Medication [...] on previous levels of control. Cyst of hesbwpl-uutbjfpnjdm-gstcssb lipoma-call if changing or any concerns 11/10/2014 Appointment: (S) New Patient 11/10/2014 Patient Education: Patient Medication Summary Completed 11/10/2014 Patient Education: Hypertension Completed 11/10/2014 Care Plan: COMPLETE CBC AUTOMATED LOINC : 30923-4 Ordered 11/10/2014 Referral: Chuy Bustos Referral Appointment Requested Instructions Comment . Hospital follow up - This was a follow up appointment from the patient's hospitalization during which time Dr. Hardy formulated the assessment and plan for the follow up on this patient's medical condition. 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 . Right knee pain - pt states [...] pain - continue with gabapentin and naproxen. we are going to change your blood [...] management - repeat labs in 3 months. Power Pudding: equal parts of prune juice, [...] 8 ounces of water with the mixture. Prednisone for 5 days to help decrease [...] continue with physical therapy - improved symptoms. get labs done next week get mammogram [...] to assure normal liver response to medications. vitamin D 5000 units daily vitamin b [...] with any changes, questions, or concerns. . 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 if you cannot get back to sleep [...] based on previous levels of control. . Hypertension - well controlled - continue [...] if symptoms not improved on this regimen. increase the trazodone to a full tablet [...] or with any changes, questions, or concerns. INCRREASE MIRALAX TO EVERY OTHER [...] on previous levels of control. Cyst of dayuycx-brenorvxumw-vqjiupg lipoma-call if changing or any concerns Co [...] Call if symptoms do not show improvement. decrease the gabapentin to 300mg twice daily [...]
--- OUTSIDE RECORDS SUMMARY | 2018-09-22 17:58 | XMS REPORT | CCD ---
Author Author Sandi Camp Organization [facility] Address [address] [place] [address] Phone Care Team Providers Care Patient Monitor Name Role Phone PP Unavailable CCM Unavailable Summary Purpose Interface Exchange Insurance Providers Payer name Policy type / Coverage type Covered democrat ID Effective Begin Date Effective End Date WPS Medicare Part B Medicare Part B [id number] Unknown [employer] Medicare Part B [id number] Unknown Family history Brother sara Diagnosis Age [...] status Unknown 11/10/[address]: 816378880 Never smoker 11/10/2014 Alcohol history Unknown occasionally [...] Fill Instructions levothyroxine 125 mcg tablet RxNorm: 113603 TAKE 1 TABLET EVERY DAY 06/02/2018 11/28/2018 Active gabapentin 300 mg capsule RxNorm: 626149 1 Capsule(s) PO QID 05/04/2019 Active update on her script trazodone 50 mg tablet RxNorm: 254242 1.5 Tablet(s) PO QHS 07/03/2019 Active pantoprazole 40 mg tablet,delayed release RxNorm: 219096 1 Tablet(s) PO daily 04/16/2018 04/10/2019 Active prednisone 20 mg tablet RxNorm: 791228 2 Tablet(s) PO daily 04/05/2018 Inactive losartan 100 mg tablet RxNorm: 021967 1 Tablet(s) PO daily 04/29/2019 Active Cipro 500 mg tablet RxNorm: 878110 1 Tablet(s) PO BID x 3 days to equal a total of 10 days 02/04/2018 02/06/2018 Inactive Flagyl 500 mg tablet RxNorm: 381033 1 Tablet(s) PO TID x 3 days to equal a total of 10 days 02/04/2018 02/06/2018 Inactive Carafate 1 gram tablet RxNorm: 024775 1 Tablet(s) PO QID 201703/05/2018 Inactive gabapentin 300 mg capsule RxNorm: 420232 1 Capsule(s) PO TID 05/09/2018 Inactive update on her script levothyroxine 125 mcg tablet RxNorm: 677955 TAKE 1 TABLET EVERY DAY 12/29/2017 06/01/2018 Inactive gabapentin 300 mg capsule RxNorm: 987791 1 Capsule(s) PO BID 01/11/2018 Inactive Norvasc 5 mg tablet RxNorm: 250446 1 Tablet(s) PO daily 201701/19/2019 Active losartan 100 mg tablet RxNorm: 345120 1 Tablet(s) PO daily 02/03/2018 Inactive levothyroxine 125 mcg tablet RxNorm: 889173 Tablet(s) TAKE 1 TABLET EVERY DAY 08/13/2017 12/28/2017 Inactive Zithromax Z-Nirav 250 mg tablet RxNorm: 531771 1 Tablet(s) PO UD 07/02/2017 11/17/2017 Inactive zpack as directed trazodone 50 mg tablet RxNorm: 066331 1 Tablet(s) PO QHS 201605/09/2018 Inactive losartan 50 mg tablet RxNorm: 298756 1 Tablet(s) PO daily 201610/26/2017 Inactive pantoprazole 40 mg tablet,delayed release RxNorm: 665980 1 Tablet(s) PO daily 04/07/2017 04/01/2018 Inactive trazodone 50 mg tablet RxNorm: 784133 1/2 Tablet(s) PO QHS 05/25/2017 Inactive prednisone 20 mg tablet RxNorm: 647832 2 Tablet(s) PO daily 04/201702/27/2017 Inactive baclofen 10 mg tablet RxNorm: 293986 1 Tablet(s) PO TID 201602/06/2018 Inactive gabapentin 300 mg capsule RxNorm: 133030 1 Capsule(s) PO TID 11/17/2017 Inactive Vitamin D3 5,000 unit tablet RxNorm: 453881 1 Tablet(s) PO daily 02/11/2017 No Stop Date Active levothyroxine 125 mcg tablet RxNorm: 125532 TAKE 1 TABLET EVERY DAY 02/10/2017 05/10/2017 Inactive Kenalog 40 mg/mL suspension for injection RxNorm: 5313248 1 Milliliter(s) Inj 01/26/2017 01/26/2017 Inactive doxycycline hyclate 100 mg capsule RxNorm: 0436784 1 Capsule(s) PO BID 01/26/2017 02/04/2017 Inactive Norvasc 10 mg tablet RxNorm: 403616 1 Tablet(s) PO daily 201610/26/2017 Inactive Lipitor 20 mg tablet RxNorm: 846141 1 Tablet(s) PO QPM 201501/05/2017 Inactive sent on 12/25 also levothyroxine 125 mcg tablet RxNorm: 125047 1 Tablet(s) PO daily 12/28/2015 02/09/2017 Inactive 2nd escribe for this medication sent 12/25 Ziac 10 mg-6.25 mg tablet RxNorm: 402560 Tablet(s) TAKE ONE TABLET BY MOUTH DAILY 12/28/2015 10/06/2016 Inactive sent on 12/25 also levothyroxine 125 mcg tablet RxNorm: 057275 1 Tablet(s) PO daily 12/26/2015 12/27/2015 Inactive Lipitor 20 mg tablet RxNorm: 981188 1 Tablet(s) PO QPM 201512/27/2015 Inactive Ziac 10 mg-6.25 mg tablet RxNorm: 602547 Tablet(s) TAKE ONE TABLET BY MOUTH DAILY 12/26/2015 12/27/2015 Inactive Ziac 10 mg-6.25 mg tablet RxNorm: 500725 TAKE ONE TABLET BY MOUTH DAILY 11/27/2015 12/25/2015 Inactive hydrocodone 5 mg-acetaminophen 325 mg tablet RxNorm: 327638 1 Tablet(s) PO Q4-6H 11/22/2015 03/31/2016 Inactive prednisone 20 mg tablet RxNorm: 832657 3 Tablet(s) PO daily 09/02/2015 Inactive azithromycin 250 mg tablet RxNorm: 954918 2 Tablet(s) PO on day #1, then 1pill daily x 4 days 08/29/2015 12/02/2015 Inactive Lipitor 20 mg tablet RxNorm: 616318 1 Tablet(s) PO QPM 201412/25/2015 Inactive levothyroxine 125 mcg tablet RxNorm: 194079 1 Tablet(s) PO daily 04/25/2015 12/25/2015 Inactive Ziac 10 mg-6.25 mg tablet RxNorm: 084061 1 Tablet(s) PO daily 03/12/2015 10/07/2015 Inactive Fish Oil oral RxNorm: 0001737 oral No Start Date Active Aspirin Low Dose 81 mg tablet,delayed release RxNorm: 256814 1 Tablet(s) PO daily No Start Date Active tramadol 37.5 mg-acetaminophen 325 mg tablet RxNorm: 139562 Tablet(s) PO PRN No Start Date Active carvedilol 6.25 mg tablet RxNorm: 263925 1 Tablet(s) PO BID No Start Date Active Calcium RxNorm: 1 PO daily No Start Date Active Glucosamine Chondroitin Maximum Strength oral RxNorm: 4845 oral No Start Date Active Probiotic oral RxNorm : 6205 oral No Start Date Active multivitamin tablet RxNorm: 1 Tablet(s) PO daily No Start Date Active Vitamin B-6 oral RxNorm: 515526 oral No Start Date Active carvedilol 6.25 mg tablet RxNorm: 915455 1 Tablet(s) PO BID No Start Date Active Vitamin C oral RxNorm : 1151 oral No Start Date Active Vitamin B-12 oral RxNorm: 49789 oral No Start Date Active cetirizine 10 mg tablet RxNorm: 2992880 1 Tablet(s) PO daily No Start Date Active naproxen 500 mg tablet RxNorm: 132369 1 Tablet(s) PO BID No Start Date Active potassium chloride ER 10 mEq tablet,extended release RxNorm: 780331 1 Tablet(s) PO daily Dr Lopez No Start Date Active Lipitor 20 mg tablet RxNorm: 934674 1 Tablet(s) PO daily No Start Date 06/11/2015 Inactive baclofen 10 mg tablet RxNorm: 178974 1 Tablet(s) PO TID No Start Date 02/11/2017 Inactive gabapentin 600 mg tablet RxNorm: 424797 1 Tablet(s) PO TID No Start Date 01/22/2017 Inactive Zithromax Z-Nirav 250 mg tablet RxNorm: 098081 1 Tablet(s) PO UD No Start Date 07/01/2017 Inactive zpack as directed levothyroxine 125 mcg capsule RxNorm: 981014 1 Capsule(s) PO daily No Start Date 04/24/2015 Inactive Ziac 10 mg-6.25 mg tablet RxNorm: 384284 1 Tablet(s) PO daily No Start Date 03/11/2015 Inactive gabapentin 300 mg capsule RxNorm: 079446 1 Capsule(s) PO TID No Start Date 02/11/2017 Inactive lisinopril 10 mg tablet RxNorm: 689569 1 Tablet(s) PO daily No Start Date 05/18/2017 Inactive Protonix 40 mg granules delayed-release packet RxNorm: 173723 1 PO daily No Start Date 04/06/2017 Inactive cyclobenzaprine 10 mg tablet RxNorm: 604364 1 Tablet(s) PO daily No Start Date 12/07/2017 Inactive hydrochlorothiazide 25 mg tablet RxNorm: 718411 1 Tablet(s) PO daily No Start Date 12/07/2017 Inactive Norvasc 10 mg tablet RxNorm: 623129 2 Tablet(s) PO daily No Start Date 10/06/2016 Inactive Vitamin D3 oral RxNorm : oral No Start Date 02/10/2017 Inactive Medication Administered Medication Codes Instructions Start Date Status Kenalog 40 mg/mL suspension for injection RxNorm: 9456783 1Milliliter 01/26/2017 No longer Active Immunizations Vaccine [...] 29.8 pg 05/29/2017 Cbc With Differential Ord2 Nance% 7.9 % 05/29/2017 Cbc With Differential Ord2 [...] 1.17 K/ul 05/29/2017 Cbc With Differential Ord2 Nance ABS# 0.3 K/ul 05/29/2017 Cbc With Differential Ord2 Eos ABS# 0.2 K/ul 05/29/2017 Cbc With Differential Ord2 Baso ABS# 0.0 K/ul 05/29/2017 Tsh Ord6 hTSH II 1.70 uIU/mL 05/29/2017 Free T4 Ecl384 FREE T4 0.84 ng/dL 05/29/2017 Lipid Ord30 CHOL 261 mg/dL 05/29/2017 Lipid Ord30 HDL 51.0 mg/dl 05/29/2017 Lipid Ord30 TRIG 165 mg/dL 05/29/2017 Lipid Ord30 LDL 177 mg/dL 05/29/2017 Lipid Ord30 C/HDL 5.1 Ratio 05/29/2017 Comp Metabolic Rtf036 NA 143 mEq/L 05/29/2017 Comp Metabolic Fpb262 K 3.5 mEq/L 05/29/2017 Comp Metabolic Zjd774 CL 103 mEq/L 05/29/2017 Comp Metabolic Zpj653 CO2 29.0 mEq/L 05/29/2017 Comp Metabolic Kws935 ANION GAP 15 05/29/2017 Comp Metabolic Zcw916 GLUCOSE 122 mg/dL 05/29/2017 Comp Metabolic Lff837 Creat 0.6 mg/dL 05/29/2017 Comp Metabolic Qhf842 eGFR 102 ml/min/1.73m2 05/29/2017 Comp Metabolic Cyr954 BUN 11 mg/dL 05/29/2017 Comp Metabolic Dwd055 B/C Ratio 17.7 Ratio 05/29/2017 Comp Metabolic Zwj794 CALCIUM 9.6 mg/dL 05/29/2017 Comp Metabolic Dge181 ALK PHOS 79 U/L 05/29/2017 Comp Metabolic Klb723 AST(SGOT) 16 U/L 05/29/2017 Comp Metabolic Hvv869 ALT(SGPT) 17 U/L 05/29/2017 Comp Metabolic Axr258 BILI T 0.6 mg/dL 05/29/2017 Comp Metabolic Gjw534 ALBUMIN 4.6 g/dL 05/29/2017 Comp Metabolic Mto371 TPRO 6.7 g/dL 05/29/2017 Comp Metabolic Cku036 GLOB 2.1 g/dL 05/29/2017 Comp Metabolic Ekd668 A/G Ratio 2.1 Ratio 05/29/2017 Comp Metabolic Gku524 Osmo 286 mOsmo 05/29/2017 [place] Spotted Fever Igg/Igm 581818 SKIP MT SPOTTED FEVER IGM EIA . 01/30/2017 [place] Spotted Fever Igg/Igm 771920 RMSF, IGM 0.31 index 01/30/2017 [place] Spotted Fever Igg/Igm 998820 SKIP MT SPOTTED FEVER IGG EIA FLEX . 01/30/2017 [place] Spotted Fever Igg/Igm 698667 RMSF, IGG SCREEN-FLEX Negative 01/30/2017 Ehrlichia Chaffeensis Antibody Igm [id number] EHRLICHIA CHAFFEENSIS IGM < 1:16 01/30/2017 Ehrlichia Chaffeensis Antibody Igg 000029 EHRLICHIA CHAFFEENSIS IGG <1:64 01/30/2017 Lymes Disease Total Antibodies With Western Blot Reflex [id number] B. BURGDORFERI, IGG/IGM 0.12 LI 01/27/2017 Lymes Disease Total Antibodies With Western Blot Reflex [id number] 01/27/2017 Vitamin D 25 Oh Zex2723 VITAMIN D, 25 HYDROXY 37.04 ng/mL Sed [...] 30.5 pg 01/26/2017 Cbc With Differential Ord2 Nance% 7.5 % 01/26/2017 Cbc With Differential Ord2 [...] 1.38 K/ul 01/26/2017 Cbc With Differential Ord2 Nance ABS# 0.4 K/ul 01/26/2017 Cbc With Differential Ord2 Eos ABS# 0.2 K/ul 01/26/2017 Cbc With Differential Ord2 Baso ABS# 0.0 K/ul 01/26/2017 C-Reactive Protein Qnt Crqnt CRP 0.1 mg/dl 01/26/2017 Comp Metabolic Huw443 NA 142 mEq/L 01/26/2017 Comp Metabolic Rws653 K 3.7 mEq/L 01/26/2017 Comp Metabolic Bmt256 CL 103 mEq/L 01/26/2017 Comp Metabolic Wfj345 CO2 27.0 mEq/L 01/26/2017 Comp Metabolic Kjz677 ANION GAP 16 01/26/2017 Comp Metabolic Nhm954 GLUCOSE 105 mg/dL 01/26/2017 Comp Metabolic Otq660 Creat 0.6 mg/dL 01/26/2017 Comp Metabolic Imd509 eGFR 98 ml/min/1.73m2 01/26/2017 Comp Metabolic Nvw023 BUN 14 mg/dL 01/26/2017 Comp Metabolic Ojo998 B/C Ratio 21.9 Ratio 01/26/2017 Comp Metabolic Fzk097 CALCIUM 9.8 mg/dL 01/26/2017 Comp Metabolic Auj684 ALK PHOS 83 U/L 01/26/2017 Comp Metabolic Zaa051 AST(SGOT) 15 U/L 01/26/2017 Comp Metabolic Zfm975 ALT(SGPT) 18 U/L 01/26/2017 Comp Metabolic Sir992 BILI T 0.6 mg/dL 01/26/2017 Comp Metabolic Npd810 ALBUMIN 4.5 g/dL 01/26/2017 Comp Metabolic Zpo606 TPRO 6.6 g/dL 01/26/2017 Comp Metabolic Dgn927 GLOB 2.1 g/dL 01/26/2017 Comp Metabolic Yfc253 A/G Ratio 2.1 Ratio 01/26/2017 Comp Metabolic Bvl125 Osmo 284 mOsmo 01/26/2017 Lipid Ord30 CHOL [...] 24.0 % 04/10/2016 Cbc With Differential Ord2 Nance% 7.7 % 04/10/2016 Cbc With Differential Ord2 [...] 1.24 K/ul 04/10/2016 Cbc With Differential Ord2 Nance ABS# 0.4 K/ul 04/10/2016 Cbc With Differential Ord2 Eos ABS# 0.2 K/ul 04/10/2016 Cbc With Differential Ord2 Baso ABS# 0.0 K/ul 04/10/2016 Comp Metabolic Xdc708 NA 141 mEq/L 04/10/2016 Comp Metabolic Ihf433 K 3.6 mEq/L 04/10/2016 Comp Metabolic Kxz346 CL 103 mEq/L 04/10/2016 Comp Metabolic Owh117 CO2 32.0 mEq/L 04/10/2016 Comp Metabolic Drn458 ANION GAP 10 04/10/2016 Comp Metabolic Bfv431 GLUCOSE 107 mg/dL 04/10/2016 Comp Metabolic Omt174 Creat 0.7 mg/dL 04/10/2016 Comp Metabolic Rte029 eGFR 97 ml/min/1.73m2 04/10/2016 Comp Metabolic Oxh887 BUN 15 mg/dL 04/10/2016 Comp Metabolic Myc468 B/C Ratio 23.1 Ratio 04/10/2016 Comp Metabolic Qhu035 CALCIUM 9.4 mg/dL 04/10/2016 Comp Metabolic Wwu355 ALK PHOS 68 U/L 04/10/2016 Comp Metabolic Guf751 AST(SGOT) 20 U/L 04/10/2016 Comp Metabolic Vbh727 ALT(SGPT) 23 U/L 04/10/2016 Comp Metabolic Nix385 BILI T 0.6 mg/dL 04/10/2016 Comp Metabolic Stz967 ALBUMIN 4.4 g/dL 04/10/2016 Comp Metabolic Jeo350 TPRO 6.5 g/dL 04/10/2016 Comp Metabolic Zra834 GLOB 2.1 g/dL 04/10/2016 Comp Metabolic Lbx523 A/G Ratio 2.1 Ratio 04/10/2016 Comp Metabolic Wer472 Osmo 283 mOsmo 04/10/2016 Free T4 Uph578 FREE T4 0.80 ng/dL 04/10/2016 Review of [...] NO PRSV 4 KAIN 3 YRS+ CPT-4: 49045 04/15/2018 PPPS, INITIAL VISIT CPT-4: G0438 12/08/2017 ADMIN INFLUENZA VIRUS VAC CPT-4: G0008 04/07/2017 FLU VAC NO PRSV 4 KAIN 3 YRS+ CPT-4: 92583 04/07/2017 DRAIN/INJECT JOINT/BURSA CPT-4: 91168 01/26/2017 REMOVE SPINE LAMINA 1 LMBR CPT-4: 06323 Unknown Vital Signs Date Vital 06/10/2018 Blood Pressure 1: 138/72 Code : 8480-6 BMI: 29.6 Code : 72887-4 Heart Rate 1 : 80 bpm Height: 5'8" SpO2: 98% Weight: 195 lbs 05/10/2018 Blood Pressure 1: 150/80 Code : 8480-6 BMI: 29.5 Code : 33012-7 Heart Rate 1 : 72 bpm Height: 5'8" SpO2: 95% Weight: 194 lbs 04/01/2018 Blood Pressure 1: 140/72 Code : 8480-6 BMI: 29.2 Code : 79752-2 Heart Rate 1 : 75 bpm Height: 5'8" SpO2: 98% Weight: 192 lbs 02/04/2018 Blood Pressure 1: 130/72 Code : 8480-6 BMI: 29.2 Code : 84107-3 Heart Rate 1 : 74 bpm Height: 5'8" SpO2: 97% Weight: 192 lbs 01/12/2018 Blood Pressure 1: 134/72 Code : 8480-6 BMI: 29.6 Code : 83295-9 Heart Rate 1 : 77 bpm Height: 5'8" SpO2: 98% Weight: 195 lbs 11/18/2017 Blood Pressure 1: 122/74 Code : 8480-6 BMI: 30.6 Code : 54501-9 Heart Rate 1 : 81 bpm Height: 5'8" SpO2: 97% Weight: 201 lbs 10/27/2017 Blood Pressure 1: 146/74 Code : 8480-6 BMI: 31.3 Code : 27337-0 Heart Rate 1 : 87 bpm Height: 5'8" SpO2: 93% Weight: 206 lbs 07/29/2017 Blood Pressure 1: 130/76 Code : 8480-6 BMI: 30.9 Code : 15316-0 Heart Rate 1 : 91 bpm Height: 5'8" SpO2: 98% Weight: 203 lbs 06/30/2017 Blood Pressure 1: 122/64 Code : 8480-6 BMI: 30.3 Code : 06313-8 Heart Rate 1 : 82 bpm Height: 5'8" SpO2: 96% Weight: 199 lbs 05/19/2017 Blood Pressure 1: 136/68 Code : 8480-6 BMI: 30.1 Code : 03123-1 Heart Rate 1 : 83 bpm Height: 5'8" SpO2: 94% Weight: 198 lbs 04/07/2017 Blood Pressure 1: 142/74 Code : 8480-6 BMI: 29.3 Code : 75984-0 Heart Rate 1 : 79 bpm Height: 5'8" SpO2: 96% Weight: 193 lbs 02/23/2017 Blood Pressure 1: 150/86 Code : 8480-6 BMI: 28.9 Code : 18957-3 Heart Rate 1 : 71 bpm Height: 5'8" SpO2: 95% Weight: 190 lbs 01/26/2017 Blood Pressure 1: 118/70 Code : 8480-6 BMI: 29.3 Code : 60744-1 Heart Rate 1 : 75 bpm Height: 5'8" SpO2: 95% Temperature: 36.7 (C) / 98.1 (F) Weight: 193 lbs 01/09/2017 Blood Pressure 1: 144/78 Code : 8480-6 BMI: 29.3 Code : 18151-9 Heart Rate 1 : 84 bpm Height: 5'8" SpO2: 98% Weight: 193 lbs 10/07/2016 Blood Pressure 1: 122/74 Code : 8480-6 BMI: 30.0 Code : 80534-9 Heart Rate 1 : 82 bpm Height: 5'8" SpO2: 97% Weight: 197 lbs 04/01/2016 Blood Pressure 1: 130/76 Code : 8480-6 BMI: 30.6 Code : 78449-8 Heart Rate 1 : 71 bpm Height: 5'8" SpO2: 97% Weight: 201 lbs 8 oz 12/03/2015 Blood Pressure 1: 118/68 Code : 8480-6 Heart Rate 1: 73 bpm Height: SpO2: 98% Weight: 11/22/2015 Blood Pressure 1: 126/72 Code : 8480-6 BMI: 30.9 Code : 95483-3 Heart Rate 1 : 75 bpm Height: 5'8" SpO2: 95% Weight: 203 lbs 08/29/2015 Blood Pressure 1: 126/68 Code : 8480-6 BMI: 30.4 Code : 62920-8 Heart Rate 1 : 92 bpm Height: 5'8" SpO2: 97% Temperature: 36.9 (C) / 98.5 (F) Weight: 200 lbs 02/28/2015 Blood Pressure 1: 120/72 Code : 8480-6 BMI: 30.6 Code : 49026-5 Heart Rate 1 : 74 bpm Height: 5'8" SpO2: 96% Weight: 201 lbs 11/10/2014 Blood Pressure 1: 118/62 Code : 8480-6 BMI: 30.4 Code : 40897-3 Heart Rate 1 : 64 bpm Height: [...] than malignant neoplasm[ICD10: Z09] Stephy [facility] MD, [facility] CPT-4: 85777 06/10/2018 ([id number]) 71608 EST. 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 PATIENT, LEVEL III Diagnosis: Low back pain[ICD10: M54.5] Diagnosis: Trochanteric bursitis, right hip[ICD10: M70.61] Stephy Hardy MD, [facility] CPT-4: 97323 04/01/2018 [id number] EST. PATIENT, LEVEL III Diagnosis: Gastro-esophageal reflux disease without esophagitis[ICD10: K21.9] Diagnosis: Diverticulitis of large intestine without perforation or abscess without bleeding[ICD10: K57.32] Stephy Hardy MD, [facility] CPT-4: 39821 02/04/2018 ([id number]) 47447 EST. PATIENT, LEVEL IV Diagnosis: Essential (primary) hypertension[ICD10: I10] Diagnosis: Low back pain[ICD10: M54.5] Diagnosis: Other fatigue[ICD10: R53.83] [facility]ha [facility] MD, [facility] CPT- 4: 83379 01/12/2018 ([id number]) 59348 EST. PATIENT, LEVEL III Diagnosis: Essential (primary) hypertension[ICD10: I10] Diagnosis: Other fatigue[ICD10: R53.83] [facility]ha [facility] MD, [facility] CPT- 4: 35094 11/18/2017 ([id number]) 27666 EST. PATIENT, LEVEL IV Diagnosis: Essential (primary) hypertension[ICD10: I10] Diagnosis: Atrophy of thyroid (acquired)[ICD10: E03.4] [facility]ha [facility] MD, [facility] CPT-4: 64625 10/27/2017 ([id number]) 28217 EST. PATIENT, LEVEL III Diagnosis: Essential (primary) hypertension[ICD10: I10] [facility]ha [facility] MD [facility] CPT-4: 89874 07/29/2017 ([id number]) 17574 EST. PATIENT, LEVEL IV Diagnosis: Essential (primary) hypertension[ICD10: I10] Diagnosis: Slow transit constipation[ICD10: K59.01] [facility]ha [facility] MD, [facility] CPT-4: 86893 06/30/2017 ([id number]) 16167 EST. 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 PATIENT, LEVEL IV Diagnosis: Myalgia[ICD10: M79.1] Diagnosis: Pain in right wrist[ICD10: M25.531] Stephy Hardy MD, [facility] CPT-4: 46923 02/23/2017 44365 EST. PATIENT, LEVEL IV Diagnosis: Pain in left ankle and joints of left foot[ICD10: M25.572] Diagnosis: Pain in right ankle and joints of right foot[ICD10: M25.571] Diagnosis: Pain in right hip[ICD10: M25.551] Diagnosis: Myalgia[ICD10: M79.1] Diagnosis: Vitamin D deficiency, unspecified[ICD10: E55.9] Diagnosis: Bitten or stung by nonvenomous insect and other nonvenomous arthropods, initial encounter[ICD10: W57.XXXA] Stephy Hardy MD, [facility] CPT-4: 88981 01/26/2017 99768 EST. PATIENT, LEVEL IV Diagnosis: Myalgia[ICD10: M79.1] Stephy Hardy MD, [facility] CPT-4: 43768 01/09/2017 ([id number]) 97363 EST. 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 PATIENT, LEVEL IV Diagnosis: Essential (primary) hypertension[ICD10: I10] Diagnosis: Mixed hyperlipidemia[ICD10: E78.2] Diagnosis: Atrophy of thyroid (acquired)[ICD10: E03.4] Subha Hardy MD, [facility] CPT-4: 56144 04/01/2016 ([id number]) 39520 EST. PATIENT, LEVEL IV Diagnosis: Essential (primary) hypertension[ICD10: I10] Diagnosis: Hypothyroidism, unspecified[ICD10: E03.9] Diagnosis: Slow transit constipation[ICD10: K59.01] Diagnosis: Gastro-esophageal reflux disease without esophagitis[ICD10: K21.9] Subha Hardy MD, [facility] CPT-4: 22563 12/03/2015 82799 EST. PATIENT, LEVEL IV Diagnosis: Pain in right knee[ICD10: M25.561] Stephy Hardy MD, [facility] CPT-4: 18830 11/22/2015 ([id number]) 64329 EST. PATIENT, LEVEL IV Diagnosis: Essential (primary) hypertension[ICD10: I10] Diagnosis: Hypothyroidism, unspecified[ICD10: E03.9] Diagnosis: Acute frontal sinusitis, unspecified[ICD10: J01.10] Subha Hardy MD, [facility] CPT-4: 67415 08/29/2015 ([id number]) 48067 EST. 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 05/10/2018 [facility] [phone] [facility] [place] (15 min) Moderate 05/10/2018 Patient Education: Patient Medication Summary Completed 05/10/2018 Care Plan: Referral Order SNOMED-CT : [id number] Pending 05/10/2018 Appointment: Injection 04/15/2018 Patient Education: [...] not improving. 04/01/2018 Appointment: Stephy Hansen WPtel: [facility] (15 min) Moderate 04/01/2018 Patient Education: Patient Medication Summary Completed 04/01/2018 Patient Education: Back Pain Completed 04/01/2018 Care Plan: X-RAY EXAM L-S SPINE 2/3 VWS LOINC : 94613-4 Pending 04/01/2018 Visit Plan: Esophageal Reflux - [...] pt's stomach. 02/04/2018 Appointment: Stephy Hansen WPtel: [facility] [place] (15 min) Moderate 02/04/2018 Patient Education: [...] and naproxen. 01/12/2018 Appointment: [facility] ([facility] min) Moderate 01/12/2018 Patient Education: [...] is stable. 11/18/2017 Appointment: Subha Hardy WPtel: [facility] (15 min) Moderate 11/18/2017 Patient Education: Patient [...] 3 months. 10/27/2017 Appointment: Subha Hardy WPtel: [facility] (15 min) Moderate 10/27/2017 Patient Education: Patient Medication Summary Completed 10/27/2017 Appointment: Subha Hardy WPtel: [facility] (15 min) Moderate 08/18/2017 Visit Plan: [...] improved symptoms. 07/29/2017 Appointment: Subha Hardy WPtel: [facility] (15 min) Moderate 07/29/2017 Patient Education: [...] etc. 06/30/2017 Appointment: Subha Hardy WPtel: [phone] [facility] (15 min) Moderate 06/30/2017 Patient Education: [...] losartan. 05/19/2017 Appointment: Subha Hardy WPtel: [phone] [facility] (15 min) Moderate 05/19/2017 Patient Education: Patient Medication Summary Completed 05/19/2017 Appointment: Subha Hardy WPtel: [phone] [facility] (15 min) Moderate 05/12/2017 Visit Plan: Hypertension [...] mixture. 04/07/2017 [facility]: [phone] [facility] [place] (15 min) Moderate 04/07/2017 Patient [...] or concerns. 02/23/2017 App[facility]ment: [facility] [place] ([facility]) Moderate 02/23/2017 Patient Education: [...] or concerns. 01/26/2017 [phone] [id number] [place] (30 min) Complex 01/26/2017 Patient Education: [...] time. 10/07/2016 [facility]ment: [phone] [id number] (15 min) Moderate 10/07/2016 Patient Education: Patient Medication Summary Completed 10/07/2016 Patient Education: Obesity Completed 10/07/2016 Patient Education: Hypertension Completed 10/07/2016 [facility]ment: Sub[id number] (15 min) Moderate 09/30/2016 Visit Plan: [...] medications. 04/01/2016 [facility]ment: [id number] (15 min) Moderate 04/01/2016 Patient Education: Patient [...] miralax. 12/03/2015 App[facility]ment: [id number] ([facility] min) Moderate 12/03/2015 Patient Education: [...] concerns. 11/22/2015 Appointment: Stephy Hansen WPtel: [phone] [facility] System[address] (30 min) Complex 11/22/2015 Patient Education: Patient [...] show improvement. 08/29/2015 Appointment: Subha Hardy WPtel: [facility] (15 min) Moderate 08/29/2015 Patient Education: [...] this regimen. 02/28/2015 Appointment: Subha Hardy WPtel: [facility] Follow up 02/28/2015 Patient Education: Patient Medication [...] on previous levels of control. Cyst of hcgpeld-ohsrvxzxcea-ooniyry lipoma-call if changing or any concerns 11/10/2014 Appointment: (S) New Patient 11/10/2014 Patient Education: Patient Medication Summary Completed 11/10/2014 Patient Education: Hypertension Completed 11/10/2014 Care Plan: COMPLETE CBC AUTOMATED LOINC : 96625-1 Ordered 11/10/2014 Referral: Chuy Bustos Referral Appointment [...] on previous levels of control. Cyst of yftpjew-mssiuxjpirg-lguneta lipoma-call if changing or any concerns Power [...] been proven to upset the pt's stomach. vitamin D 5000 units daily vitamin b [...]
[2018-09-22] MEDS ORDERED: ACETAMINOPHEN 325 MG TABLET PO PRN (18:15)
--- OUTSIDE RECORDS SUMMARY | 2018-09-22 18:18 | XMS REPORT | Continuity of Care Document ---
Author Organization Unknown Address Unknown Allergies Active Description Code Type Severity Reaction Onset Reported/Identified Relationship to Patient Clinical Status Yes NO KNOWN DRUG ALLERGIES UNKNOWN NO KNOWN DRUG ALLERG Yes Sulfa (Sulfonamide Antibiotics) [id number] Drug Allergy Unknown N/A 2006 Yes adhesive [id number] Drug Allergy Moderate RASH 06/02/2018 Medications There is no data. Problems Date [...] LESLIE DO, ROXANNE F Ot 724.8 07/07/2014 LESLIE DO, ROXANNE F Ot V15.88 07/07/2014 FLORIAN [...] 401.9 07/07/2014 FLORIAN DAIGLE, HARPER Watson Ot 786.50 07/07/2014 YESSENIA DAIGLE, MAXIMILIANO Ot V72.84 07/07/2014 FEDERICO NAIR MD Ot V76.12 07/11/2014 STEPHANIA DAIGLE, JANINE Nascimento Ot 592.9 07/21/2014 JANINE CAT MD Ot [...] 07/27/2014 HARPER DU MD Ot 786.50 07/27/2014 HARPER DU MD Ot 272.4 07/27/2014 HARPER DU MD Ot 401.9 07/27/2014 HARPER DU MD Ot 786.50 07/27/2014 YESSENIA DAIGLE, MAXIMILIANO Ot V72.84 07/27/2014 FEDERICO NAIR MD Ot V76.12 07/27/2014 JANINE CAT MD Ot 592.9 07/28/2014 FEDERICO NAIR MD Ot [...] 07/28/2014 FEDERICO NAIR MD Ot V03.82 10/05/2014 JANINE CAT MD Ot 592.9 URINARY CALCULUS NOS 03/02/2015 TAVARES [...] Ot 272.4 HYPERLIPIDEMIA NEC/NOS 11/29/2015 GUILLERMINA LONGO BU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 Ot M25.561 PAIN IN RIGHT KNEE 11/29/2015 GUILLERMINA LONGO BU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 Ot M25.561 PAIN IN RIGHT KNEE 12/24/2015 [...] Nascimento Ot 592.9 URINARY CALCULUS NOS 04/09/2016 EDWIGE MUELLER Ot 272.4 HYPERLIPIDEMIA NEC/NOS 04/09/2016 WAYNE DAIGLE, CHRISTINA Nascimento Ot M25.561 PAIN IN RIGHT KNEE 04/09/2016 GUILLERMINA LONGO BU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 Ot M25.561 PAIN IN RIGHT KNEE 04/10/2016 GUILLERMINA LONGO BU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 Ot Z12.31 ENCNTR SCREEN MAMMOGRAM FOR MALIGNANT NE 04/22/2016 GUILLERMINA LONGO APRN Ot Z12.31 ENCNTR SCREEN [...] Ot 592.9 URINARY CALCULUS NOS 07/15/2016 LESLIE DO, ROXANNE F Ot 719.46 JOINT PAIN-L/LEG 07/15/2016 LESLIE DO, ROXANNE F Ot 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 07/15/2016 LESLIE DO, ROXANNE F Ot 722.10 LUMBAR DISC DISPLACEMENT 07/15/2016 LESLIE DO, ROXANNE F Ot 724.8 OTHER BACK SYMPTOMS 07/15/2016 LESLIE DO, ROXANNE F Ot V15.88 HISTORY OF FALL [...] OTH SCREEN MAMMO-MALIGN NEOPLASM OF DIANNA 07/15/2016 STEPHANIA DAIGLE, JANINE Nascimento Ot 592.9 URINARY CALCULUS NOS 07/15/2016 CONNIE CASAS, EDWIGE Mobley Ot 272.4 HYPERLIPIDEMIA NEC/NOS 07/15/2016 WAYNE DAIGLE, CHRISTINA Nascimento Ot M25.561 PAIN IN RIGHT KNEE 07/15/2016 GUILLERMINA LONGO BU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 Ot M25.561 PAIN IN RIGHT KNEE 07/15/2016 GUILLERMINA LONGO BU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 Ot Z12.31 ENCNTR SCREEN MAMMOGRAM FOR MALIGNANT NE 08/07/2016 STEPHANIA DAIGLE, JANINE Nascimento Ot N20.0 CALCULUS OF KIDNEY 10/13/2016 STEPHANIA DAIGLE, JANINE Nascimento Ot N20.0 CALCULUS OF KIDNEY 03/23/2017 GUILLERMINA LONGO BU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 Ot M19.031 PRIMARY OSTEOARTHRITIS, RIGHT WRIST 03/26/2017 GUILLERMINA LONGO APRN Ot M25.551 PAIN IN RIGHT HIP 04/24/2017 GUILLERMINA LONGO APRN Ot Z12.31 ENCNTR SCREEN MAMMOGRAM FOR MALIGNANT NE 04/24/2017 GUILLERMINA LONGO BU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 Ot M19.031 PRIMARY OSTEOARTHRITIS, RIGHT WRIST 04/24/2017 [...] ANXIETY STATE NOS 05/25/2017 HARPER DU MD J Ot 397.0 TRICUSPID VALVE DISEASE 05/25/2017 HARPER DU MD J Ot 401.9 HYPERTENSION NOS 05/25/2017 HARPER DU MD J Ot 424.0 MITRAL VALVE DISORDER 05/25/2017 HARPER DU MD Ot 786.50 CHEST PAIN NOS 05/25/2017 HARPER DU MD J Ot 272.4 HYPERLIPIDEMIA NEC/NOS 05/25/2017 HARPER DU MD J Ot 401.9 HYPERTENSION NOS 05/25/2017 HARPER DU MD J Ot 786.50 CHEST PAIN NOS 05/25/2017 YESSENIA DAIGLE, MAXIMILIANO Ot V72.84 EXAM PRE-OPERATIVE NOS 05/25/2017 KOREY DAIGLE, FEDERICO Sims Ot V76.12 OTH SCREEN MAMMO-MALIGN NEOPLASM OF DIANNA 05/25/2017 STEPHANIA DAIGLE, JANINE Nascimento Ot 592.9 URINARY CALCULUS NOS 05/25/2017 CONNIE CASAS, EDWIGE Mobley Ot 272.4 HYPERLIPIDEMIA NEC/NOS 05/25/2017 WAYNE DAIGLE, CHRISTINA Nascimento Ot M25.561 PAIN IN RIGHT KNEE 05/25/2017 GUILLERMINA LONGO BU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 Ot M25.561 PAIN IN RIGHT KNEE 05/25/2017 GUILLERMINA LONGO BU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 Ot Z12.31 ENCNTR SCREEN MAMMOGRAM FOR MALIGNANT NE 05/25/2017 GUILLERMINA LONGO BU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 Ot M19.031 PRIMARY OSTEOARTHRITIS, RIGHT WRIST 05/25/2017 GUILLERMINA LONGO BU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 Ot M25.551 PAIN IN RIGHT HIP 05/25/2017 CHRISTINA BLACK MD Ot Z12.31 ENCNTR SCREEN MAMMOGRAM FOR MALIGNANT NE 05/25/2017 CHRISTINA BLACK MD Ot Z12.31 ENCNTR SCREEN MAMMOGRAM FOR MALIGNANT NE 05/26/2017 CHRISTINA BLACK MD Ot Z12.31 ENCNTR SCREEN MAMMOGRAM FOR MALIGNANT NE 06/17/2017 CHRISTINA BLACK MD Ot Z12.31 ENCNTR SCREEN MAMMOGRAM FOR MALIGNANT NE 06/17/2017 ÁLVARO DAIGLE, SEEMA E Ot D62 ACUTE POSTHEMORRHAGIC ANEMIA 06/17/2017 ÁLVARO DAIGLE SEEMA E Ot E03.9 HYPOTHYROIDISM, UNSPECIFIED 06/17/2017 ÁLVARO DAIGLE SEEMA E Ot E78.5 HYPERLIPIDEMIA, UNSPECIFIED 06/17/2017 ÁLVARO DAIGLE SEEMA E Ot G47.33 OBSTRUCTIVE SLEEP APNEA (ADULT) (PEDIATR 06/17/2017 ÁLVARO DAIGLE SEEMA E Ot I10 ESSENTIAL (PRIMARY) HYPERTENSION 06/17/2017 ÁLVARO DAIGLE SEEMA E Ot K21.9 GASTRO-ESOPHAGEAL REFLUX DISEASE WITHOUT 06/17/2017 ÁLVARO DAIGLE SEEMA E Ot K59.09 OTHER CONSTIPATION 06/17/2017 ÁLVARO DAIGLE SEEMA E Ot M19.90 UNSPECIFIED OSTEOARTHRITIS, UNSPECIFIED 06/17/2017 ÁLVARO DAIGLE SEEMA E Ot Z47.89 ENCOUNTER FOR OTHER ORTHOPEDIC AFTERCARE 06/22/2017 ÁLVARO DAIGLE SEEMA E Ot D62 ACUTE POSTHEMORRHAGIC ANEMIA 06/22/2017 ÁLVARO DAIGLE SEEMA E Ot E03.9 HYPOTHYROIDISM, UNSPECIFIED 06/22/2017 ÁLVARO DAIGLE SEEMA E Ot E78.5 HYPERLIPIDEMIA, UNSPECIFIED 06/22/2017 ÁLVARO DAIGLE SEEMA E Ot G47.33 OBSTRUCTIVE SLEEP APNEA (ADULT) (PEDIATR 06/22/2017 ÁLVARO DAIGLE SEEMA E Ot I10 ESSENTIAL (PRIMARY) HYPERTENSION 06/22/2017 ÁLVARO DAIGLE SEEMA E Ot K21.9 GASTRO-ESOPHAGEAL REFLUX DISEASE WITHOUT 06/22/2017 ÁLVARO DAIGLE SEEMA E Ot K59.09 OTHER CONSTIPATION 06/22/2017 ÁLVARO DAIGLE SEEMA E Ot L23.1 ALLERGIC CONTACT DERMATITIS DUE TO ADHES 06/22/2017 ÁLVARO DAIGLE SEEMA E Ot M19.90 UNSPECIFIED OSTEOARTHRITIS, UNSPECIFIED 06/22/2017 ÁLVARO DAIGLE SEEMA E Ot R50.82 POSTPROCEDURAL FEVER 06/22/2017 ÁLVARO DAIGLE SEEMA E Ot Z47.89 ENCOUNTER FOR OTHER ORTHOPEDIC AFTERCARE 06/22/2017 Ot 592.9 URINARY CALCULUS NOS 06/22/2017 Ot 592.9 URINARY CALCULUS NOS 06/22/2017 STEPHANIA DAIGLE, JANINE Nascimento Ot 592.9 URINARY CALCULUS NOS 06/22/2017 STEPHANIA DAIGLE, JANINE Nascimento Ot N20.0 CALCULUS OF KIDNEY 06/24/2017 GUILLERMINA LONGO BU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 Ot Z12.31 ENCNTR SCREEN MAMMOGRAM FOR MALIGNANT NE 06/24/2017 GUILLERMINA LONGO BU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 Ot M19.031 PRIMARY OSTEOARTHRITIS, RIGHT WRIST 06/24/2017 GUILLERMINA LONGO BU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 Ot M25.551 PAIN IN RIGHT HIP 06/24/2017 WAYNE DAIGLE, CHRISTINA Nascimento Ot Z12.31 ENCNTR SCREEN MAMMOGRAM FOR MALIGNANT NE 08/27/2017 STEPHANIA DAIGLE, JANINE Nascimento Ot N20.0 CALCULUS OF KIDNEY 09/15/2017 JANINE CAT MD Ot N20.0 CALCULUS OF KIDNEY 11/26/2017 Ot V76.12 OTH SCREEN MAMMO-MALIGN NEOPLASM OF DIANNA 11/26/2017 Ot 592.9 URINARY CALCULUS NOS 11/26/2017 Ot 721.3 LUMBOSACRAL SPONDYLOSIS 11/26/2017 Ot 782.0 SKIN SENSATION DISTURB 11/26/2017 Ot 959.9 INJURY-SITE NOS 11/26/2017 Ot E000.8 OTHER EXTERNAL CAUSE STATUS 11/26/2017 Ot E849.0 ACCIDENT IN HOME 11/26/2017 Ot E888.9 FALL NOS 11/26/2017 FLORIAN DAIGLE, HARPER Watson Ot 401.9 HYPERTENSION NOS 11/26/2017 FLORIAN DAIGLE, HARPER Watson Ot 786.09 RESPIRATORY ABNORM NEC 11/26/2017 YESSENIA DAIGLE, MAXIMILIANO Ot V72.84 EXAM PRE-OPERATIVE NOS 11/26/2017 Ot 592.9 URINARY CALCULUS NOS 11/26/2017 ROXANNE NELSON DO Ot 719.46 JOINT PAIN-L/LEG 11/26/2017 LESLIE ROXANNE PATE Ot 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 11/26/2017 ROXANNE NELSON DO Ot 722.10 LUMBAR DISC DISPLACEMENT 11/26/2017 ROXANNE NELSON DO Ot 724.8 OTHER BACK SYMPTOMS 11/26/2017 ROXANNE NELSON DO Ot V15.88 HISTORY OF FALL 11/26/2017 HARPER DU MD Ot 272.4 HYPERLIPIDEMIA NEC/NOS 11/26/2017 HARPER DU MD Ot 300.00 ANXIETY STATE NOS 11/26/2017 HARPER DU MD Ot 397.0 TRICUSPID VALVE DISEASE 11/26/2017 HARPER DU MD Ot 401.9 HYPERTENSION NOS 11/26/2017 HARPER DU MD Ot 424.0 MITRAL VALVE DISORDER 11/26/2017 HARPER DU MD Ot 786.50 CHEST PAIN NOS 11/26/2017 HARPER DU MD Ot 272.4 HYPERLIPIDEMIA NEC/NOS 11/26/2017 HARPER DU MD Ot 401.9 HYPERTENSION NOS 11/26/2017 HARPER DU MD Ot 786.50 CHEST PAIN NOS 11/26/2017 YESSENIA DAIGLE, MAXIMILIANO Ot V72.84 EXAM PRE-OPERATIVE NOS 11/26/2017 KOREY DAIGLE, FEDERICO Sims Ot V76.12 OTH SCREEN MAMMO-MALIGN NEOPLASM OF DIANNA 11/26/2017 STEPHANIA DAIGLE, JANINE Nascimento Ot 592.9 URINARY CALCULUS NOS 11/26/2017 EDWIGE MUELLER Ot 272.4 HYPERLIPIDEMIA NEC/NOS 11/26/2017 WAYNE DAIGLE, CHRISTINA Nascimento Ot M25.561 PAIN IN RIGHT KNEE 11/26/2017 GUILLERMINA LONGO BU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 Ot M25.561 PAIN IN RIGHT KNEE 11/26/2017 GUILLERMINA LONGO BU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 Ot Z12.31 ENCNTR SCREEN MAMMOGRAM FOR MALIGNANT NE 11/26/2017 GUILLERMINA LONGO BU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 Ot M19.031 PRIMARY OSTEOARTHRITIS, RIGHT WRIST 11/26/2017 GUILLERMINA LONGO BU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 Ot M25.551 PAIN IN RIGHT HIP 11/26/2017 CHRISTINA BLACK MD Ot Z12.31 ENCNTR SCREEN MAMMOGRAM FOR MALIGNANT NE 11/26/2017 STEPHANIA DAIGLE, JANINE Nascimento Ot N20.0 CALCULUS OF KIDNEY 12/03/2017 HARPER DU MD Ot E78.5 HYPERLIPIDEMIA, UNSPECIFIED 12/03/2017 HARPER DU MD Ot I08.1 RHEUMATIC DISORDERS OF BOTH MITRAL AND T 12/03/2017 HARPER DU MD Ot I11.9 HYPERTENSIVE HEART DISEASE WITHOUT HEART 12/03/2017 HARPER DU MD Ot R06.09 OTHER FORMS OF DYSPNEA 12/03/2017 HARPER DU MD Ot R07.89 OTHER CHEST PAIN 12/22/2017 HARPER DU MD Ot E78.5 HYPERLIPIDEMIA, UNSPECIFIED 12/22/2017 FLORIAN DAIGLE, HARPER Watson Ot I08.1 RHEUMATIC DISORDERS OF BOTH MITRAL AND T 12/22/2017 HARPER DU MD Ot I11.9 HYPERTENSIVE HEART DISEASE WITHOUT HEART 12/22/2017 HARPER DU MD Ot R06.09 OTHER FORMS OF DYSPNEA 12/22/2017 HARPER DU MD Ot R07.89 OTHER CHEST PAIN 04/05/2018 GUILLERMINA LONGO BU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 Ot M47.816 SPONDYLOSIS W/O MYELOPATHY OR RADICULOPA 04/05/2018 GUILLERMINA LONGO BU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 Ot M51.36 OTHER INTERVERTEBRAL DISC DEGENERATION, 04/05/2018 GUILLERMINA LONGO BU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 Ot Z98.1 ARTHRODESIS STATUS 04/07/2018 GUILLERMINA LONGO BU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 Ot M47.816 SPONDYLOSIS W/O MYELOPATHY OR RADICULOPA 04/07/2018 GUILLERMINA LONGO BU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 Ot M51.36 OTHER INTERVERTEBRAL DISC DEGENERATION, 04/07/2018 GUILLERMINA LONGO BU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 Ot Z98.1 ARTHRODESIS STATUS 04/22/2018 GUILLERMINA LONGO BU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 Ot M47.816 SPONDYLOSIS W/O MYELOPATHY OR RADICULOPA 04/22/2018 GUILLERMINA LONGO BU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 Ot M51.36 OTHER INTERVERTEBRAL DISC DEGENERATION, 04/22/2018 GUILLERMINA LONGO BU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 Ot Z98.1 ARTHRODESIS STATUS 06/02/2018 Ot 592.9 URINARY CALCULUS NOS 06/02/2018 JANINE CAT MD Ot 592.9 URINARY CALCULUS NOS 06/02/2018 JANINE CAT MD Ot N20.0 CALCULUS OF KIDNEY 06/03/2018 CHRISTINA BLACK MD Ot E03.9 HYPOTHYROIDISM, UNSPECIFIED 06/03/2018 CHRISTINA BLACK MD Ot E78.00 PURE HYPERCHOLESTEROLEMIA, UNSPECIFIED 06/03/2018 CHRISTINA BLACK MD Ot E78.5 HYPERLIPIDEMIA, UNSPECIFIED 06/03/2018 CHRISTINA BLACK MD Ot F41.9 ANXIETY DISORDER, UNSPECIFIED 06/03/2018 CHRISTINA BLACK MD Ot G47.30 SLEEP APNEA, UNSPECIFIED 06/03/2018 CHRISTINA BLACK MD Ot I10 ESSENTIAL (PRIMARY) HYPERTENSION 06/03/2018 CHRISTINA BLACK MD Ot I65.23 OCCLUSION AND STENOSIS OF BILATERAL VAN 06/03/2018 CHRISTINA BLACK MD Ot K21.9 GASTRO-ESOPHAGEAL REFLUX DISEASE WITHOUT 06/03/2018 CHRISTINA BLACK MD Ot K58.9 IRRITABLE BOWEL SYNDROME WITHOUT DIARRHE 06/03/2018 CHRISTINA BLACK MD Ot M79.651 PAIN IN RIGHT THIGH 06/03/2018 CHRISTINA BLACK MD Ot M79.652 PAIN IN LEFT THIGH 06/03/2018 CHRISTINA BLACK MD Ot R07.9 CHEST PAIN, UNSPECIFIED 06/03/2018 CHRISTINA BLACK MD Ot R10.9 UNSPECIFIED ABDOMINAL PAIN 06/03/2018 CHRISTINA BLACK MD Ot R11.0 NAUSEA 06/03/2018 CHRISTINA BLACK MD Ot R42 DIZZINESS AND GIDDINESS 06/03/2018 CHRISTINA BLACK MD Ot Z79.82 HALFWAY (CURRENT) USE OF ASPIRIN 06/03/2018 CHRISTINA BLACK MD Ot Z79.899 OTHER ORDER EXPEDITER (CURRENT) DRUG THERAPY 06/03/2018 CHRISTINA BLACK MD Ot Z87.442 PERSONAL HISTORY OF URINARY CALCULI 06/03/2018 CHRISTINA BLACK MD Ot Z88.2 ALLERGY STATUS TO SULFONAMIDES STATUS 06/04/2018 CHRISTINA BLACK MD Ot E03.9 HYPOTHYROIDISM, UNSPECIFIED 06/04/2018 CHRISTINA BLACK MD Ot E78.00 PURE HYPERCHOLESTEROLEMIA, UNSPECIFIED 06/04/2018 CHRISTINA BLACK MD Ot E78.5 HYPERLIPIDEMIA, UNSPECIFIED 06/04/2018 CHRISTINA BLACK MD Ot F41.9 ANXIETY DISORDER, UNSPECIFIED 06/04/2018 CHRISTINA BLACK MD Ot G47.30 SLEEP APNEA, UNSPECIFIED 06/04/2018 CHRISTINA BLACK MD Ot I10 ESSENTIAL (PRIMARY) HYPERTENSION 06/04/2018 CHRISTINA BLACK MD Ot I65.23 OCCLUSION AND STENOSIS OF BILATERAL VAN 06/04/2018 CHRISTINA BLACK MD Ot K21.9 GASTRO-ESOPHAGEAL REFLUX DISEASE WITHOUT 06/04/2018 CHRISTINA BLACK MD Ot K58.9 IRRITABLE BOWEL SYNDROME WITHOUT DIARRHE 06/04/2018 WAYNE DAIGLE, CHRISTINA Nascimento Ot M79.651 PAIN IN RIGHT THIGH 06/04/2018 CHRISTINA BLACK MD Ot M79.652 PAIN IN LEFT THIGH 06/04/2018 CHRISTINA BLACK MD Ot R07.9 CHEST PAIN, UNSPECIFIED 06/04/2018 CHRISTINA BLACK MD Ot R10.9 UNSPECIFIED ABDOMINAL PAIN 06/04/2018 CHRISTINA BLACK MD Ot R11.0 NAUSEA 06/04/2018 CHRISTINA BLACK MD Ot R42 DIZZINESS AND GIDDINESS 06/04/2018 CHRISTINA BLACK MD Ot Z79.82 HALFWAY (CURRENT) USE OF ASPIRIN 06/04/2018 CHRISTINA BLACK MD Ot Z79.899 OTHER HALFWAY (CURRENT) DRUG THERAPY 06/04/2018 CHRISTINA BLACK MD Ot Z87.442 PERSONAL HISTORY OF URINARY CALCULI 06/04/2018 CHRISTINA BLACK MD Ot Z88.2 ALLERGY STATUS TO SULFONAMIDES STATUS 06/05/2018 YESSENIA DAIGLE, MAXIMILIANO Ot V72.84 EXAM PRE-OPERATIVE NOS 06/05/2018 Ot 592.9 URINARY CALCULUS NOS 06/05/2018 LESLIE PATE ROXANNE F Ot 719.46 JOINT PAIN-L/LEG 06/05/2018 LESLIE PATE ROXANNE Milly Ot 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9 HYPERTENSION NOS 06/05/2018 HARPER DU MD Ot 786.50 CHEST PAIN NOS 06/05/2018 MAXIMILIANO CASAS MD Ot V72.84 EXAM PRE-OPERATIVE NOS 06/05/2018 KOREY DAIGLE, FEDERICO Sims Ot V76.12 OTH SCREEN MAMMO-MALIGN NEOPLASM OF DIANNA 06/05/2018 STEPHANIA DIAGLE, JANINE Nascimento Ot 592.9 URINARY CALCULUS NOS 06/05/2018 EDWIGE MUELLER Ot 272.4 HYPERLIPIDEMIA NEC/NOS 06/05/2018 WAYNE DAIGLE, CHRISTINA Nascimento Ot M25.561 PAIN IN RIGHT KNEE 06/05/2018 GUILLERMINA LONGO BU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 Ot M25.561 PAIN IN RIGHT KNEE 06/05/2018 GUILLERMINA LONGO BU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 Ot Z12.31 ENCNTR SCREEN MAMMOGRAM FOR MALIGNANT NE 06/05/2018 GUILLERMINA LONGO BU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 Ot M19.031 PRIMARY OSTEOARTHRITIS, RIGHT WRIST 06/05/2018 GUILLERMINA LONGO BU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 Ot M25.551 PAIN IN RIGHT HIP 06/05/2018 WAYNE DAIGLE, CHRISTINA Nascimento Ot Z12.31 ENCNTR SCREEN MAMMOGRAM FOR MALIGNANT NE 06/05/2018 STEPHANIA DAIGLE, JANINE Nascimento Ot N20.0 CALCULUS OF KIDNEY 06/05/2018 HARPER DU MD Ot E78.5 HYPERLIPIDEMIA, UNSPECIFIED 06/05/2018 HARPER DU MD Ot I08.1 RHEUMATIC DISORDERS OF BOTH MITRAL AND T 06/05/2018 HARPER DU MD Ot I11.9 HYPERTENSIVE HEART DISEASE WITHOUT HEART 06/05/2018 HARPER DU MD Ot R06.09 OTHER FORMS OF DYSPNEA 06/05/2018 HARPER DU MD Ot R07.89 OTHER CHEST PAIN 06/05/2018 GUILLERMINA LONGO BU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 Ot M47.816 SPONDYLOSIS W/O MYELOPATHY OR RADICULOPA 06/05/2018 GUILLERMINA LONGO APRN Ot M51.36 OTHER INTERVERTEBRAL DISC DEGENERATION, 06/05/2018 GUILLERMINA LONGO BU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 Ot Z98.1 ARTHRODESIS STATUS 06/18/2018 MAXIMILIANO CASAS MD Ot V72.84 EXAM PRE-OPERATIVE NOS 06/18/2018 Ot 592.9 URINARY CALCULUS NOS 06/18/2018 LESLIE DO, ROXANNE Atkins Ot 719.46 JOINT PAIN-L/LEG 06/18/2018 LESLIE PATE, ROXANNE Atkins Ot 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 06/18/2018 LESLIE PATE, ROXANNE Atkins Ot 722.10 LUMBAR DISC DISPLACEMENT 06/18/2018 LESLIE PATE ROXANNE Atkins Ot 724.8 OTHER BACK SYMPTOMS 06/18/2018 LESLIE PATE ROXANNE Atkins Ot V15.88 HISTORY OF FALL 06/18/2018 HARPER DU MD Ot 272.4 HYPERLIPIDEMIA NEC/NOS 06/18/2018 HARPER DU MD Ot 300.00 ANXIETY STATE NOS 06/18/2018 HARPER DU MD Ot 397.0 TRICUSPID VALVE DISEASE 06/18/2018 HARPER DU MD Ot 401.9 HYPERTENSION NOS 06/18/2018 HARPER DU MD Ot 424.0 MITRAL VALVE DISORDER 06/18/2018 HARPER DU MD Ot 786.50 CHEST PAIN NOS 06/18/2018 HARPER DU MD Ot 272.4 HYPERLIPIDEMIA NEC/NOS 06/18/2018 HARPER DU MD Ot 401.9 HYPERTENSION NOS 06/18/2018 HARPER DU MD Ot 786.50 CHEST PAIN NOS 06/18/2018 YESSENIA DAIGLE, MAXIMILIANO Ot V72.84 EXAM PRE-OPERATIVE NOS 06/18/2018 KOREY DAIGLE, FEDERICO Sims Ot V76.12 OTH SCREEN MAMMO-MALIGN NEOPLASM OF DIANNA 06/18/2018 STEPHANIA DAIGLE, JANINE Nascimento Ot 592.9 URINARY CALCULUS NOS 06/18/2018 EDWIGE MUELLER Ot 272.4 HYPERLIPIDEMIA NEC/NOS 06/18/2018 WAYNE DAIGLE, CHRISTINA Nascimento Ot M25.561 PAIN IN RIGHT KNEE 06/18/2018 GUILLERMINA LONGO APRN Ot M25.561 PAIN IN RIGHT KNEE 06/18/2018 GUILLERMINA LONGO BU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 Ot Z12.31 ENCNTR SCREEN MAMMOGRAM FOR MALIGNANT NE 06/18/2018 GUILLERMINA LONGO APRN Ot M19.031 PRIMARY OSTEOARTHRITIS, RIGHT WRIST 06/18/2018 GUILLERMINA LONGO APRN Ot M25.551 PAIN IN RIGHT HIP 06/18/2018 WAYNE DAIGLE, CHRISTINA Nascimento Ot Z12.31 ENCNTR SCREEN MAMMOGRAM FOR MALIGNANT NE 06/18/2018 STEPHANIA DAIGLE, JANINE Nascimento Ot N20.0 CALCULUS OF KIDNEY 06/18/2018 HARPER DU MD Ot E78.5 HYPERLIPIDEMIA, UNSPECIFIED 06/18/2018 HARPER DU MD Ot I08.1 RHEUMATIC DISORDERS OF BOTH MITRAL AND T 06/18/2018 HARPER DU MD Ot I11.9 HYPERTENSIVE HEART DISEASE WITHOUT HEART 06/18/2018 HARPER DU MD Ot R06.09 OTHER FORMS OF DYSPNEA 06/18/2018 HARPER DU MD Ot R07.89 OTHER CHEST PAIN 06/18/2018 GUILLERMINA LONGO APRN Ot M47.816 SPONDYLOSIS W/O MYELOPATHY OR RADICULOPA 06/18/2018 GUILLERMINA LONGO APRN Ot M51.36 OTHER INTERVERTEBRAL DISC DEGENERATION, 06/18/2018 GUILLERMINA LONGO APRN Ot Z98.1 ARTHRODESIS STATUS Procedures There is no data. Results Test [...] creatinine measurement (mass/time) 1246 % 600-1800 Clinical frame stripper and crusher review of results SEE FOOTNOTE NR Complete blood count (CBC) with automated white blood cell (WBC) differential - 06/22/17 15:05 Blood leukocytes automated count (number/volume) 8.7 10*3/uL 4.3-11.0 Blood erythrocytes automated count (number/volume) 3.28 10*6/uL 4.35-5.85 Venous blood hemoglobin measurement (mass/volume) 9.9 g/dL 11.5-16.0 Blood hematocrit (volume fraction) 29 % 35-52 Automated erythrocyte mean corpuscular volume 89 [foz_us] 80-99 Automated erythrocyte mean corpuscular hemoglobin (mass per erythrocyte) 30 pg 25-34 Automated erythrocyte mean corpuscular hemoglobin concentration measurement ( mass/volume) 34 g/dL 32-36 Automated erythrocyte distribution width ratio 13.6 % 10.0-14.5 Automated blood platelet count (count/volume) 306 10*3/uL 130-400 Automated blood platelet mean volume measurement 9.9 [foz_us] 7.4-10.4 Automated blood neutrophils/100 leukocytes 65 % 42-75 Automated blood lymphocytes/100 leukocytes 20 % 12-44 Blood monocytes/100 leukocytes 9 % 0-12 Automated blood eosinophils/100 leukocytes 5 % 0-10 Automated blood basophils/100 leukocytes 0 % 0-10 Blood neutrophils automated count (number/volume) 5.7 10*3 1.8-7.8 Blood lymphocytes automated count (number/volume) 1.8 10*3 1.0-4.0 Blood monocytes automated count (number/volume) 0.8 10*3 0.0-1.0 Automated eosinophil count 0.4 10*3/uL 0.0-0.3 Automated blood basophil count (count/volume) 0.0 10*3/uL 0.0-0.1 CD3+CD4+ (T4 helper) cells/100 cells in blood - 08/28/17 14:30 Timed urine calcium measurement (mass/volume) 296 % < 250 Urine oxalate detection 40 < 45 Urine uric acid measurement (mass/volume) 612 % < 700 Urine citrate measurement (mass/volume) 604 % > 320 Urine pH measurement 7.2 5.5-7.0 24 hour urine specimen volume measurement 3.00 % > 2.00 Sodium urate/total calculus mass ratio by infrared spectroscopy 189 % < 200 Sulfites [presence] in urine by test strip 9 < 30 Urine phosphate measurement (mass/volume) 786 % < 1100 Urine magnesium measurement (mass/volume) 142 % > 60 Urine calcium oxalate measurement 1.40 < 2.00 Urine calcium phosphate crystals detection by computer assisted method 2.90 < 2.00 24 hour urine sodium urate (saturation fraction) 1.16 < 2.00 Triple phosphate crystals detection in urine sediment by light microscopy 8.22 < 75.00 24 hour urine uric acid (saturation fraction) 0.07 < 2.00 Urine ammonium measurement 29 % 14-62 Urine potassium measurement 86 % 19-135 24 hour urine creatinine measurement (mass/time) 1479 % 600-1800 Clinical frame stripper and crusher review of results See Below NRG Complete blood count (CBC) with automated white blood cell (WBC) differential - 06/02/18 18:45 Blood leukocytes automated count (number/volume) 5.4 10*3/uL 4.3-11.0 Blood erythrocytes automated count (number/volume) 4.52 10*6/uL 4.35-5.85 Venous blood hemoglobin measurement (mass/volume) 13.3 g/dL 11.5-16.0 Blood hematocrit (volume fraction) 41 % 35-52 Automated erythrocyte mean corpuscular volume 90 [foz_us] 80-99 Automated erythrocyte mean corpuscular hemoglobin (mass per erythrocyte) 29 pg 25-34 Automated erythrocyte mean corpuscular hemoglobin concentration measurement ( mass/volume) 33 g/dL 32-36 Automated erythrocyte distribution width ratio 13.9 % 10.0-14.5 Automated blood platelet count (count/volume) 179 10*3/uL 130-400 Automated blood platelet mean volume measurement 10.5 [foz_us] 7.4-10.4 Automated blood neutrophils/100 leukocytes 59 % 42-75 Automated blood lymphocytes/100 leukocytes 24 % 12-44 Blood monocytes/100 leukocytes 9 % 0-12 Automated blood eosinophils/100 leukocytes 7 % 0-10 Automated blood basophils/100 leukocytes 0 % 0-10 Blood neutrophils automated count (number/volume) 3.2 10*3 1.8-7.8 Blood lymphocytes automated count (number/volume) 1.3 10*3 1.0-4.0 Blood monocytes automated count (number/volume) 0.5 10*3 0.0-1.0 Automated eosinophil count 0.4 10*3/uL 0.0-0.3 Automated blood basophil count (count/volume) 0.0 10*3/uL 0.0-0.1 Comprehensive metabolic panel - 06/02/18 18:45 Serum or plasma sodium measurement (moles/volume) 144 mmol/L 135-145 Serum or plasma potassium measurement (moles/volume) 3.5 mmol/L 3.6-5.0 Serum or plasma chloride measurement (moles/volume) 106 mmol/L 98-107 Carbon dioxide 25 mmol/L 21-32 Serum or plasma anion gap determination (moles/volume) 13 mmol/L 5-14 Serum or plasma urea nitrogen measurement (mass/volume) 13 mg/dL 7-18 Serum or plasma creatinine measurement (mass/volume) 0.75 mg/dL 0.60-1.30 Serum or plasma urea nitrogen/creatinine mass ratio 17 NRG Serum or plasma creatinine measurement with calculation of estimated glomerular filtration rate > NRG Serum or plasma glucose measurement (mass/volume) 114 mg/dL 70-105 Serum or plasma calcium measurement (mass/volume) 9.8 mg/dL 8.5-10.1 Serum or plasma total bilirubin measurement (mass/volume) 0.9 mg/dL 0.1-1.0 Serum or plasma alkaline phosphatase measurement (enzymatic activity/volume) 103 U/L 40-136 Serum or plasma aspartate aminotransferase measurement (enzymatic activity/ volume) 28 U/L 5-34 Serum or plasma alanine aminotransferase measurement (enzymatic activity/volume ) 32 U/L 0-55 Serum or plasma protein measurement (mass/volume) 7.6 g/dL 6.4-8.2 Serum or plasma albumin measurement (mass/volume) 4.9 g/dL 3.2-4.5 Magnesium - 06/02/18 18:45 Magnesium 2.3 mg/dL 1.8-2.4 PT panel in platelet poor plasma by coagulation assay - 06/02/18 18:45 Prothrombin time (PT) in platelet poor plasma by coagulation assay 13.1 s 12.2-14.7 INR in platelet poor plasma or blood by coagulation assay 1.0 0.8-1.4 Activated partial thromboplastin time (aPTT) in platelet poor plasma bycoagulation assay - 06/02/18 18:45 Activated partial thromboplastin time (aPTT) in platelet poor plasma bycoagulation assay 27 s 24-35 Myoglobin, serum - 18 18:45 Myoglobin, serum 43.6 ng/mL 10.0-92.0 Serum or plasma troponin i.cardiac measurement (mass/volume) - 06/02/18 18:45 Serum or plasma troponin i.cardiac measurement (mass/volume) < ng/ mL <0.30 Myoglobin, serum - 06/02/18 18:45 Myoglobin, serum 43.6 ng/mL 10.0-92.0 THYROID STIMULATING HORMONE - 06/02/18 18:45 THYROID STIMULATING HORMONE 1.53 u[iU]/mL 0.35-4.94 Serum or plasma thyroxine (T4) free measurement (mass/volume) - 06/02/18 18:45 Serum or plasma thyroxine (T4) free measurement (mass/volume) 1.03 ng/dL 0.70-1.48 Complete urinalysis with reflex to culture - 06/02/18 19:50 Urine color determination YELLOW NRG Urine clarity determination CLEAR NRG Urine pH measurement by test strip 7 5-9 Specific gravity of urine by test strip 1.010 1.016- 1.022 Urine protein assay by test strip, semi-quantitative 1+ NEGATIVE Urine glucose detection by automated test strip NEGATIVE NEGATIVE Erythrocytes detection in urine sediment by light microscopy NEGATIVE NEGATIVE Urine ketones detection by automated test strip NEGATIVE NEGATIVE Urine nitrite detection by test strip NEGATIVE NEGATIVE Urine total bilirubin detection by test strip NEGATIVE NEGATIVE Urine urobilinogen measurement by automated test strip (mass/volume) NORMAL NORMAL Urine leukocyte esterase detection by dipstick 1+ NEGATIVE Automated urine sediment erythrocyte count by microscopy (number/high power field) RARE NRG Automated urine sediment leukocyte count by microscopy (number/high power field ) [HPF] NRG Bacteria detection in urine sediment by light microscopy NONE NRG Squamous epithelial cells detection in urine sediment by light microscopy 0-2 NRG Crystals detection in urine sediment by light microscopy PRESENT NRG Casts detection in urine sediment by light microscopy NONE NRG Mucus detection in urine sediment by light microscopy SMALL NRG Complete urinalysis with reflex to culture NO NRG Amorphous sediment detection in urine sediment by light microscopy FEW LOVE URATES NRG Complete blood count (CBC) with automated white blood cell (WBC) differential - 06/03/18 03:10 Blood leukocytes automated count (number/volume) 5.8 10*3/uL 4.3-11.0 Blood erythrocytes automated count (number/volume) 4.10 10*6/uL 4.35-5.85 Venous blood hemoglobin measurement (mass/volume) 12.3 g/dL 11.5-16.0 Blood hematocrit (volume fraction) 37 % 35-52 Automated erythrocyte mean corpuscular volume 91 [foz_us] 80-99 Automated erythrocyte mean corpuscular hemoglobin (mass per erythrocyte) 30 pg 25-34 Automated erythrocyte mean corpuscular hemoglobin concentration measurement ( mass/volume) 33 g/dL 32-36 Automated erythrocyte distribution width ratio 14.0 % 10.0-14.5 Automated blood platelet count (count/volume) 188 10*3/uL 130-400 Automated blood platelet mean volume measurement 10.4 [foz_us] 7.4-10.4 Automated blood neutrophils/100 leukocytes 69 % 42-75 Automated blood lymphocytes/100 leukocytes 21 % 12-44 Blood monocytes/100 leukocytes 6 % 0-12 Automated blood eosinophils/100 leukocytes 3 % 0-10 Automated blood basophils/100 leukocytes 0 % 0-10 Blood neutrophils automated count (number/volume) 4.0 10*3 1.8-7.8 Blood lymphocytes automated count (number/volume) 1.2 10*3 1.0-4.0 Blood monocytes automated count (number/volume) 0.4 10*3 0.0-1.0 Automated eosinophil count 0.2 10*3/uL 0.0-0.3 Automated blood basophil count (count/volume) 0.0 10*3/uL 0.0-0.1 Serum or plasma creatine kinase measurement (enzymatic activity/volume) - 06/03 03:10 Serum or plasma creatine kinase measurement (enzymatic activity/volume) 172 U/L 29-168 Lipid 1996 panel - 06/03/18 03:10 Serum or plasma triglyceride measurement (mass/volume) 64 mg/dL <150 Serum or plasma cholesterol measurement (mass/volume) 147 mg/dL < 200 Serum or plasma cholesterol in HDL measurement (mass/volume) 51 mg/ dL 40-60 Cholesterol in LDL [mass/volume] in serum or plasma by direct assay 81 mg/dL 1-129 Serum or plasma cholesterol in VLDL measurement (mass/volume) 13 mg/ dL 5-40 Whole blood basic metabolic panel - 06/03/18 03:10 Serum or plasma sodium measurement (moles/volume) 143 mmol/L 135-145 Serum or plasma potassium measurement (moles/volume) 3.6 mmol/L 3.6-5.0 Serum or plasma chloride measurement (moles/volume) 108 mmol/L 98-107 Carbon dioxide 22 mmol/L 21-32 Serum or plasma anion gap determination (moles/volume) 13 mmol/L 5-14 Serum or plasma urea nitrogen measurement (mass/volume) 12 mg/dL 7-18 Serum or plasma creatinine measurement (mass/volume) 0.65 mg/dL 0.60-1.30 Serum or plasma urea nitrogen/creatinine mass ratio 18 NRG Serum or plasma creatinine measurement with calculation of estimated glomerular filtration rate > NRG Serum or plasma glucose measurement (mass/volume) 103 mg/dL 70-105 Serum or plasma calcium measurement (mass/volume) 9.2 mg/dL 8.5-10.1 Serum or plasma troponin i.cardiac measurement (mass/volume) - 06/03/18 03:10 Serum or plasma troponin i.cardiac measurement (mass/volume) < ng/ mL <0.30 Encounters ACCT No. Visit Date/Time Discharge Status Pt. Type Provider Facility Loc./Unit Complaint [id number] 06/02/2018 21:20:00 06/03/2018 17:52:00 DIS Outpatient WAYNE DAIGLE, CHRISTINA Nascimento [facility] ICU CHEST PAIN, HYPERTENSIVE,LIGHTHEADED [id number] 04/01/2018 11:55:00 04/01/2018 23:59:59 CLS Outpatient GUILLERMINA LONGO APRN [facility] RAD LOW BACK PAIN [id number] 11/30/2017 09:30:00 11/30/2017 23:59:59 CLS Outpatient FLORIAN DAIGLE, HARPER Watson [facility] CARD CHEST PAIN [id number] 08/26/2017 12:10:00 08/26/2017 23:59:59 CLS Outpatient JANINE CAT MD [facility] RAD STONES [id number] 06/14/2017 14:04:00 06/22/2017 16:00:00 DIS Inpatient ÁLVARO DAIGLE, SEEMA Sabillon [facility] IRF SPONDYLOSIS WITH RADICULOPATHY, LUMBAR REGION [id number] 05/26/2017 14:40:00 05/26/2017 23:59:59 CLS Preadmit FLORIAN DAIGLE, HARPER Watson [facility] RAD R07.89 CHEST PAIN [id number] 05/25/2017 15:05:00 05/25/2017 23:59:59 CLS Outpatient CHRISTINA BLACK MD [facility] RAD SCREENING MAMMO [id number] 04/24/2017 07:30:00 04/24/2017 23:59:59 CLS Preadmit CARI MOE [employer]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 [facility] RAD LUMBAR SPINAL STENOSIS [id number] 04/07/2017 14:30:00 04/07/2017 23:59:59 CLS Preadmit CHRISTINA BLACK MD [facility] RAD SCREENING [id number] 03/03/2017 10:50:00 03/03/2017 23:59:59 CLS Outpatient GUILLERMINA LONGO 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 [facility] RAD RIGHT HIP PAIN [id number] 02/23/2017 11:34:00 02/23/2017 23:59:59 CLS Outpatient GUILLERMINA LONGO BU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 [facility] RAD R WRIST PAIN [id number] 10/14/2016 00:11:00 10/14/2016 23:59:59 CLS Preadmit JANINE CAT MD [facility] RAD STONES [id number] 07/16/2016 16:55:00 10/13/2016 00:01:00 DIS Outpatient JANINE CAT MD [facility] RAD STONES [id number] 04/09/2016 09:48:00 04/09/2016 23:59:59 CLS Outpatient GUILLERMINA LONGO 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 [facility] RAD SCREENING [id number] 11/26/2015 10:31:00 11/26/2015 23:59:59 CLS Outpatient GUILLERMINA LONGO BU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 [facility] RAD RT KNEE PAIN [id number] 11/13/2015 13:40:00 11/13/2015 23:59:59 CLS Outpatient CHRISTINA BLACK MD [facility] RAD R KNEE PAIN [id number] 05/30/2015 14:59:00 05/30/2015 18:10:00 DIS Emergency NAEEM DAIGLE, ALEXA Clark [facility] ER CHEST PAIN [id number] 03/02/2015 08:07:00 03/02/2015 23:59:59 CLS Outpatient CONNIE CASAS EDWIGE Mobley [facility] LAB HYPERLIPIDEMIA [id number] 03/02/2015 08:01:00 03/02/2015 09:00:00 DIS Outpatient TAVARES SCOTT MD [facility] CARD DDD [id number] 10/06/2014 00:10:00 10/06/2014 23:59:59 CLS Preadmit JANINE CAT MD [facility] RAD STONES [id number] 07/10/2014 06:41:00 10/05/2014 00:01:00 DIS Outpatient JANINE CAT MD [facility] RAD STONES [id number] 07/27/2014 15:40:00 07/28/2014 19:40:00 DIS Inpatient FEDERICO NAIR MD [facility] CSD VERTIGO,L CAROTID BRUIT,ELEVATED CK [id number] 06/21/2014 15:04:00 06/21/2014 23:59:59 CLS Outpatient FEDERICO NAIR MD [facility] RAD SCREENING [id number] 03/24/2014 09:02:00 03/24/2014 12:20:00 DIS Outpatient MAXIMILIANO CASAS MD [facility] SDC HISTORY POLYPS [id number] 03/22/2014 07:20:00 03/22/2014 23:59:59 CLS Outpatient MAXIMILIANO CASAS MD [facility] PREOP HISTORY POLYPS [id number] 02/17/2014 06:59:00 02/17/2014 07:49:00 DIS Outpatient TAVARES SCOTT MD [facility] CARD DEGENERATIVE DISC DISEASE LUMBAR [id number] 02/06/2014 07:30:00 02/06/2014 23:59:59 CLS Outpatient HARPER DU MD [facility] CARD CP,HTN,HLP,ANXIETY [id number] 02/02/2014 09:46:00 02/02/2014 23:59:59 CLS Outpatient HARPER DU MD [facility] CARD CP,HTN,HLP,ANXIETY [id number] 10/07/2013 07:57:00 10/07/2013 09:05:00 DIS Outpatient TAVARES SCOTT MD [facility] CARD DDD [id number] 08/16/2013 09:48:00 08/16/2013 23:59:59 CLS Outpatient LESLIE PATE ROXANNE F [facility] RAD LT KNEE PAIN,LOW BACK PAIN, RADICULOPATHY [id number] 04/30/2013 13:00:00 07/28/2013 00:01:00 DIS Outpatient JANINE CAT MD [facility] RAD STONES [id number] 01/07/2013 08:50:00 01/07/2013 13:05:00 DIS Outpatient MAXIMILIANO CASAS MD [facility] SDC CHEST PAINS [id number] 01/06/2013 11:03:00 01/06/2013 23:59:59 CLS Outpatient MAXIMILIANO CASAS MD [facility] PREOP CHEST PAINS [id number] 11/11/2012 10:58:00 11/11/2012 23:59:59 CLS Outpatient HARPER DU MD [facility] CARD DYSPNEA,HTN [id number] 09/22/2018 17:30:00 ACT Inpatient DANIELA BHARDWAJ DO [facility] IRF LUMBAR STENOSIS,RADICULOPATY,NEUROGENIC DAISY [id number] 07/07/2014 15:37:00 Document Registration [id number] 07/07/2014 15:37:00 Document Registration [id number] 07/07/2014 15:37:00 Document Registration [id number] 07/07/2014 15:37:00 Document Registration [id number] 07/07/2014 15:37:00 Document Registration [id number] 07/29/2013 00:00:00 Document Registration [id number] 08/23/2012 08:32:00 Document Registration [id number] 07/19/2012 11:21:00 Document Registration [id number] 07/16/2012 00:00:00 Document Registration [id number] 04/18/2012 08:30:00 Document Registration [id number] 10/13/2011 08:03:00 Document Registration [id number] 10/06/2011 07:35:00 Document Registration [id number] 07/30/2011 15:34:00 Document Registration [id number] 07/10/2011 08:28:00 Document Registration [id number] 07/08/2011 21:18:00 Document Registration [id number] 04/21/2011 13:29:00 Document Registration [id number] 02/24/2011 00:00:00 Document Registration [id number] 11/25/2010 15:52:00 Document Registration [id number] 11/18/2010 07:20:00 Document Registration [id number] 11/12/2010 11:09:00 Document Registration [id number] 10/14/2010 13:06:00 Document Registration [id number] 07/26/2010 12:01:00 Document Registration [id number] 07/26/2010 10:03:00 Document Registration [id number] 10/25/2009 12:51:00 Document Registration [id number] 10/22/2009 10:25:00 Document Registration [id number] 10/17/2009 07:16:00 Document Registration [id number] 07/04/2009 13:44:00 Document Registration [id number] 05/15/2009 11:24:00 Document Registration [id number] 04/06/2017 23:45:03 04/06/2017 23:59:59 [facility] [id number] 07/14/2018 12:19:30 Document Registration
[2018-09-22 20:30] VITALS: BP 104/63
[2018-09-22] MEDS: GABAPENTIN 300 MG (NEURONTIN) CAP PO SCH (20:45)
[2018-09-22] MEDS: BACLOFEN 10 MG (LIORESAL) TAB PO SCH (20:45)
[2018-09-22] MEDS: PANTOPRAZOLE 40 MG (PROTONIX) TAB PO SCH (20:45)
[2018-09-22] MEDS: CARVEDILOL 6.25 MG (COREG) TAB PO SCH (20:45)
[2018-09-22] MEDS: traZODone 50 MG (DESYREL) TAB PO SCH (20:45)
[2018-09-22] MEDS: FLUTICASONE NASAL SPRAY (FLONASE) 16 GM BTL NS SCH (20:49)
[2018-09-22] MEDS ORDERED: POLYETHYLENE GLYCOL 17 GM (MIRALAX) PACK PO SCH (21:00)
[2018-09-22] MEDS: HYDROcodone/APAP 10 MG/325 MG (LORTAB) TAB PO PRN (21:04)
--- NOTE | 2018-09-22 21:30 | NUR ---
DR. BHARDWAJ NOTIFIED THAT RIGHT FOOT PALER AND COOLER THAN LEFT FOOT, BUT GOOD PEDAL PULSE. ORDER TO MONITOR ONLY. PATIENT IS VERY TIRED. MEDICATED WITH LORTAB FOR BACK DISCOMFORT AND ASSISTED INTO BED. CPAP ON. LOW GRADE TEMP.
[2018-09-23] MEDS: HYDROcodone/APAP 10 MG/325 MG (LORTAB) TAB PO PRN ×4 (04:40→16:52)
[2018-09-23 05:06] VITALS: BP 118/73
[2018-09-23] MEDS: MULTIVIT W/MINERALS TAB (THERAGRAN M) PO SCH (06:04)
[2018-09-23] MEDS: KCL 10 MEQ TAB (MICRO K) PO SCH (06:04)
[2018-09-23] MEDS: LEVOTHYROXINE 125 MCG (LEVOTHROID) TABLET PO SCH (06:04)
[2018-09-23 06:19] LABS: BASOPHILS % (AUTO) 0 % (0-10); EOSINOPHILS # (AUTO) 0.2 10^3/uL (0.0-0.3); EOSINOPHILS % (AUTO) 3 % (0-10); HEMATOCRIT 26 % (35-52); HEMOGLOBIN 8.3 G/DL (11.5-16.0); LYMPHOCYTES % (AUTO) 13 % (12-44); MEAN CORPUSCULAR HEMOGLOBIN 30 PG (25-34); MEAN CORPUSCULAR HGB CONC 32 G/DL (32-36); MEAN CORPUSCULAR VOLUME 95 FL (80-99); MEAN PLATELET VOLUME 10.9 FL (7.4-10.4); MONOCYTES # (AUTO) 0.7 X 10^3 (0.0-1.0); MONOCYTES % (AUTO) 10 % (0-12); NEUTROPHILS # (AUTO) 5.8 X 10^3 (1.8-7.8); NEUTROPHILS % (AUTO) 75 % (42-75); PLATELET COUNT 146 10^3/uL (130-400); WHITE BLOOD COUNT 7.7 10^3/uL (4.3-11.0)
[2018-09-23 06:50] LABS: ALANINE AMINOTRANSFERASE 42 U/L (0-55); ALBUMIN 3.4 GM/DL (3.2-4.5); ALKALINE PHOSPHATASE 77 U/L (40-136); BILIRUBIN,TOTAL 0.6 MG/DL (0.1-1.0); BUN/CREATININE RATIO 21; CARBON DIOXIDE 26 MMOL/L (21-32); CHLORIDE 106 MMOL/L (98-107); CREATININE SERUM 0.62 MG/DL (0.60-1.30); GFR ESTIMATED > 60; GLUCOSE 132 MG/DL (70-105); POTASSIUM 3.6 MMOL/L (3.6-5.0); SODIUM 141 MMOL/L (135-145); TOTAL PROTEIN 5.9 GM/DL (6.4-8.2)
--- NOTE | 2018-09-23 08:00 | NUR ---
Dr. Mcneil here to see patient. Informed of low grade fever and no BM since 09/19/18. New orders for Miralax- 17 GM PO TID until BM, then change to daily PRN. Also, Lactulose and Senna BID until BM. Also informed of need for DVT prophylaxis. SCDs only per Dr. Mcneil.
[2018-09-23] MEDS: LOSARTAN 100 MG (COZAAR) TABLET PO SCH (08:06)
[2018-09-23] MEDS: LORATADINE (CLARITIN) 10 MG TAB PO SCH (08:06)
[2018-09-23] MEDS: CARVEDILOL 6.25 MG (COREG) TAB PO SCH ×2 (08:06→21:33)
[2018-09-23] MEDS: GABAPENTIN 300 MG (NEURONTIN) CAP PO SCH ×3 (08:06→21:33)
[2018-09-23] MEDS: amLODIPine 5 MG (NORVASC) TAB PO SCH (08:06)
[2018-09-23] MEDS: MAGNESIUM OXIDE (MAG-OX)400 MG TAB PO SCH (08:06)
[2018-09-23] MEDS: BACLOFEN 10 MG (LIORESAL) TAB PO SCH ×3 (08:06→21:33)
[2018-09-23] MEDS: PANTOPRAZOLE 40 MG (PROTONIX) TAB PO SCH ×2 (08:06→21:33)
[2018-09-23] MEDS: FLUTICASONE NASAL SPRAY (FLONASE) 16 GM BTL NS SCH ×2 (08:08→21:33)
[2018-09-23 08:10] VITALS: BP 111/68
--- NOTE | 2018-09-23 08:26 | ST Cognitive Linguistic Eval ---
Speech Evaluation-General Medical Diagnosis Back Surgery Onset Date: Sep 23, 2018 Therapy Diagnosis Therapy Diagnosis: Cognitive-Communication Precautions Precautions/Isolations: Fall Prevention, Standard Precautions Referral Referring Physician: Dr. Mcneil Medical History Pertinent Medical History: Arthritis, GERD, HTN, Hypothroidism, OA Reviewed History: Yes Social History Current Living Status: Alone Speech PLF-Current Status Prior Level of Function Patient plans to return home post rehab. Subjective Patient was pleasant and cooperative with evaluation process. Language Eval: Auditory Comprehends Simple Yes/No Ques: Functional Indent/Objects Multiple Rain: Functional Ident/Pics in Multiple Rain: Functional Follows 1-Step Commands: Functional Follows Complex Directions: Functional Follows General Conversations: Functional Language Eval: Verbal Language Completes Spontaneous Greeting: Functional Produces Auto, Serial Info: Functional Imitates Simple Words/Phrases: Functional Word Finding: Functional Requests Basic Needs: Functional States Basic Personal Info: Functional Expresses Complex Ideas: Functional Objective Cognitive Domain Attention: WNL Memory: WNL Problem Solving: Functional Executive Functions: WNL Visuospatial Skills: WNL Composite Severity Rating: WNL Clock Drawing Severity Rating: WNL Objective Formal/Standardized Tests Avila Cognitive Assessment (MOCA) Results Visuospatial/executive: 5/5, Namin/3, Memory: Immediate 5/5, Delayed 5/5, Attention: 6/6, Language: 3/3, Abstraction: 2/2, Orientation: 6/6 Impression Within Functional Limits Communication/Social Cognition Comprehension: 7 Expression: 7 Social Interaction: 7 Problem Solvin Memory: 7 Speech Patient Assess Expression of Ideas/Wants: Expression (4) Understanding Verbal Content: Understands (4) Brief Interview-Mental Status: Yes Repetition of Three Words: Three (3) Temporal Orientation: Year: Correct (3) Temporal Orientation: Month: Accurate within 5 days(2) Temporal Orientation: Day: Correct (1) Recall : Wear to say "Sock": Yes, no cue required (2) Recall : Color: Yes, no cue required (2) Recall : Bed: Yes, no cue required (2) Memory/Recall Ability: Current season, Location of own room, That he or she is in a hsp/hsp unit Speech-Plan Patient/Family Goals Patient/Family Goals: The patient plans to return home post rehab. Treatment Plan Speech Therapy Treatment Plan: Discontinue ST No skilled ST services are warranted at this time. Treatment Duration: Sep 23, 2018 Frequency: 1 time per week Estimated Hrs Per Day: .25 hour per day Rehab Potential: Good Barriers to Learning: None Identified Pt/Family Agrees to Plan: Yes Safety Risks/Education Teaching Recipient: Patient Teaching Methods: Discussion Response to Teaching: Verbalize Understanding Education Topics Provided: Safety within her room. Time Speech Therapy Time In: 08:00 Speech Therapy Time Out: 08:15 Total Billed Time: 15 Billed Treatment Time 1, ELIAZAR Shah Sep 23, 2018 08:26
--- NOTE | 2018-09-23 08:43 | PM&R H&P / Post Admit Assess ---
History of Present Illness HPI/Chief Complaint CC: Debility following lumbar spine surgery HPI: This is a 68yoWF clinic patient of Dr Hardy who was DC from [facility] in [place] after extensive lumbar spine surgery which included cyst removal with dural tear who is in need of rehab prior to going home to live alone. Patient required supine position for 24 hours after surgery and has since done very well. Anemia post op was noted but no indication for transfusion. Post op constipation will need resolved and she will need PT/OT to overcome barriers of inability to ambulate in a safe manner and perform independent ADL's in order to recover and return home to prior functioning level of independent status. I have restarted all home meds and restarted Lortab 10 which she was receiving at [facility]. Source: patient, RN/MD, old records Exam Limitations: no limitations Date Seen 09/23/18 Time Seen by a Provider: 08:00 Attending Physician Tracie Bhardwaj Holly A MD Referring Physician Date of Admission Sep 22, 2018 at 17:30 Home Medications & Allergies Home Medications Reviewed patient Home Medication Reconciliation performed by pharmacy medication reconciliations bicycle repair technician and/or nursing. Patients Allergies have been reviewed. Allergies Allergies Coded Allergies adhesive (Verified Allergy, Intermediate, RASH, 06/02/18) rash from tape from OSH postop Sulfa (Sulfonamide Antibiotics) (Verified Allergy, Unknown, 12/21/06) Past Ksflyjz-Qrrcqw-Lvlkfj Hx Past Med/Social Hx: Reviewed Nursing Past Med/Soc Hx, Reviewed and Corrections made Patient Social History Marrital Status: single Employed/Student: retired Alcohol Use: Denies Use Recreational Drug Use: No Smoking Status: Former Smoker 2nd Hand Smoke Exposure: No Physical Abuse Screen: No Sexual Abuse: No Recent Foreign Travel: No Contact w/other who traveled: No Recent Hopitalizations: Yes (ORTHO 4 STATES - LAMINECTOMY) Recent Infectious Disease Expo: No Immunizations Up To Date Tetanus Booster (TDap): Unknown Pediatric: Yes Date of Influenza Vaccine: Apr 28, 2018 Seasonal Allergies Seasonal Allergies: Yes Past Medical History Surgeries: Abdominal, Adenoidectomy, Hysterectomy, Orthopedic, Tonsillectomy Respiratory: Sleep Apnea Currently Using CPAP: Yes Currently Using BIPAP: No Cardiac: 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, Hypertension Reproductive: Yes ("I WAS INFERTILE.") Sexually Transmitted Disease: No HIV/AIDS: No Female Reproductive Disorders: Denies Hysterectomy Genitourinary: Kidney Stones Gastrointestinal: Gastroesophageal Reflux, Irritable Bowel Musculoskeletal: Degenerate Disk Disease, Arthritis, Chronic Back Pain Endocrine: Hypothyroidsim HEENT: Cataract Loss of Vision: Denies Hearing Impairment: Bilateral Hearing Aide Psychosocial: Anxiety History of Blood Disorders: No (post surgery anemia) Adverse Reaction to Blood Kaur: No (2 units given on 06-12-17) Family History Arthritis 19 MOTHER G8 SISTER Cardiovascular disease 19 MOTHER Deafness or hearing loss 19 FATHER Diabetes mellitus 19 MOTHER G8 SISTER FH: lupus 19 FATHER FH: skin cancer 19 MOTHER Hypercholesterolemia 19 MOTHER Hypertension 19 MOTHER Myocardial infarction 19 MOTHER Osteoporosis 19 MOTHER Prostate cancer G8 BROTHER G8 BROTHER Respiratory disorder 19 FATHER 19 MOTHER No Family History of: Drug abuse Heart Disease, Cancer, COPD, Hypertension Review of Systems Constitutional: see HPI, malaise, weakness EENTM: no symptoms reported Respiratory: no symptoms reported Cardiovascular: no symptoms reported Gastrointestinal: constipation Musculoskeletal: back pain Skin: no symptoms reported Psychiatric/Neurological: No Symptoms Reported All Other Systems Reviewed Negative Unless Noted: Yes Physical Exam Exam Vital Signs Vital Signs Date Time Temp Pulse Resp B/P (MAP) Pulse Ox O2 Delivery O2 Flow Rate FiO2 09/23/18 08:49 Room Air 09/23/18 08:10 99.2 86 18 111/68 (82) 93 Capillary Refill : Less Than 3 Seconds General Appearance: No Apparent Distress, WD/WN, Chronically ill HEENT: PERRL/EOMI, Normal ENT Inspection, Pharynx Normal, Moist Mucous Membranes Neck: Full Range of Motion, Normal Inspection, Non Tender, Supple Respiratory: Chest Non Tender, Lungs Clear, Normal Breath Sounds, No Accessory Muscle Use, No Respiratory Distress Cardiovascular: Regular Rate, Rhythm, No Edema, No Gallop, No JVD, No Murmur Gastrointestinal: Normal Bowel Sounds, No Organomegaly, No Pulsatile Mass, Non Tender, Soft Back: Decreased Range of Motion, Other (wearing brace) Extremity: Normal Capillary Refill, Normal Inspection, Normal Range of Motion, Non Tender, No Calf Tenderness, No Pedal Edema Neurologic/Psychiatric: Alert, Oriented x3, Normal Mood/Affect, Motor Weakness (4/5 strength bilateral LE) Skin: Normal Color, Warm/Dry Lymphatic: No Adenopathy Results Results/Procedures Labs Laboratory Tests 09/23/18 06:02 Patient resulted labs reviewed. Assessment/Plan Assessment and Plan Assess & Plan/Chief Complaint Assessment: Lumbar stenosis POD # [address] Clements at [facility] Plan: Debility resolution (1) Lumbar stenosis (2) Hypertension (3) Hyperlipidemia (4) KORTNEY on CPAP (5) GERD (gastroesophageal reflux disease) (6) IBS (irritable bowel syndrome) (7) Constipation (8) Anxiety (9) Acute blood loss as cause of postoperative anemia (10) Esophageal reflux disease (11) Hypothyroidism Post Admission Physician Asses Date seen by provider: Sep 23, 2018 Time seen by provider: 08:00 The preadmission screen agrees with the post admission assessment that the patient is a good candidate for inpatient rehabilitation. The patient will have a comprehensive program of inpatient rehabilitation with a goal of maximizing level of functional independence prior to discharge home alone. The patient will have PT/OT ninety minutes per day, each discipline, five days a week for gait, strengthening, conditioning, balance, ADLs, any patient/family/caregiver training as necessary. Speech therapy to do cognitive assessment and treat as indicated. Rehabilitation nursing to assist with bowel, bladder, skin, wound care, medication administration, pain management. Cinder Snapper to assist with discharge planning, community reentry. SCD's for DVT prophylaxis. She appears to be well motivated to participate in three hours of therapy a day. She should be able to tolerate three hours of therapy a day from a medical standpoint. She should benefit from the three hours of therapy a day. She has a reasonable discharge plan, reasonable discharge rehabilitation goals and a supportive family. She has various comorbidities that need to be closely monitored with medications and treatments adjusted on a daily basis as needed. These include: Barriers to discharge for this patient who had been independent prior to this are for her to be modified independent to supervision for ADLs and mobility skills prior to discharge home with [family], so as to lessen the burden of the caregivers. Risks for this patient include: 1. Fall 2. Fracture 3. DVT 4. Pulmonary embolism 5. Wound infection 6. Skin breakdown 7. Contractures 8. Poorly controlled pain 9. Urinary retention 10. UTI 11. Respiratory infection 12. Aspiration Estimated Length of Stay: 10 days Prognosis: Rehab prognosis appears good for goal of discharge home alone modified independent to supervision for ADLs and mobility skills. TRACIE BHARDWAJ DO Sep 23, 2018 08:43
[2018-09-23] MEDS ORDERED: NON-FORMULARY MEDICATION 1 EA EA (Magnesium Oxide (Magnesium) 400 MG) PO SCH (09:00)
[2018-09-23] MEDS ORDERED: NON-FORMULARY MEDICATION 1 EA EA (Polyethylene Glycol 3350 (Miralax) 17 GM) PO SCH (09:00)
[2018-09-23] MEDS ORDERED: NON-FORMULARY MEDICATION 1 EA EA (Amlodipine Besylate 5 MG) PO SCH (09:00)
[2018-09-23] MEDS ORDERED: NON-FORMULARY MEDICATION 1 EA EA (Potassium Chloride 10 MEQ) PO SCH (09:00)
[2018-09-23] MEDS ORDERED: NON-FORMULARY MEDICATION 1 EA EA (Vitamin B Complex 1 CAP) PO SCH (09:00)
[2018-09-23] MEDS ORDERED: MULTIVITAMIN PO SCH (09:00)
[2018-09-23] MEDS ORDERED: NON-FORMULARY MEDICATION 1 EA EA (Cetirizine HCl (Zyrtec) 10 MG) PO SCH (09:00)
[2018-09-23] MEDS ORDERED: LACTULOSE SYRUP 10GM/15ML (ENULOSE) 30ML UDC PO SCH (10:00)
[2018-09-23] MEDS ORDERED: SENNA W/DOCUSATE (SENOKOT S) TABLET PO SCH (10:00)
--- NOTE | 2018-09-23 11:17 | Physical Therapy Evaluation ---
PT Evaluation-General Medical Diagnosis Admission Date Sep 22, 2018 at 17:30 Medical Diagnosis: Back Surgery Onset Date: Sep 23, 2018 Therapy Diagnosis Therapy Diagnosis: impaired mobility, strength, endurance Height/Weight Height (Feet): 5 Height (Inches): 7.00 Weight (Pounds): 200 Weight (Ounces): 8.0 Precautions Precautions/Isolations: Fall Prevention, Standard Precautions Referral Physician: Tracie Mcneil DO Reason for Referral: Evaluation/Treatment Medical History Pertinent Medical History: Arthritis, GERD, HTN, Hypothroidism, OA Additional Medical History Past Medical History Surgeries: Abdominal, Adenoidectomy, Hysterectomy, Orthopedic, Tonsillectomy Respiratory: Sleep Apnea Currently Using CPAP: Yes Currently Using BIPAP: No Cardiac: 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, Hypertension Reproductive: Yes ("I WAS INFERTILE.") Sexually Transmitted Disease: No HIV/AIDS: No Female Reproductive Disorders: Denies Hysterectomy Genitourinary: Kidney Stones Gastrointestinal: Gastroesophageal Reflux, Irritable Bowel Musculoskeletal: Degenerate Disk Disease, Arthritis, Chronic Back Pain Endocrine: Hypothyroidsim HEENT: Cataract Loss of Vision: Denies Hearing Impairment: Bilateral Hearing Aide Psychosocial: Anxiety Reviewed History: Yes Social History Home: Single Level Current Living Status: Alone Entry Into Home: Ramp Prior/Core FIM Prior Level of Function Therapy Code Descriptions/Definitions Functional [place] Measure: 0=Not Assessed/NA 4=Minimal Assistance 1=Total Assistance 5=Supervision or Setup 2=Maximal Assistance 6=Modified [place] 3=Moderate Assistance 7=Complete [place] Therapy Quality Codes: 6 Independent with activity with or without an assistive device 5 Patient requires set up or clean up by helper. Patient completes activity by themselves 4 Supervision or touching assist (CGA). [place] provide cues , steadying assist 3 The helper provides less than half the effort to complete the activity 2 The helper provides more than half the effort to complete the activity 1 Dependent. The helper does all the effort to complete an activity 7 Patient refused to complete or attempt activity 9 The patient did not perform the activity before the current illness or injury 88 Not attempted due to Medical conditions or safety concerns Functional Abilities and Goals: Independent: Patient completed the activities by him/herself, with or without an assistive device, with no assistance from a helper. Needed Some Help: Patient needed partial assistance from another person to complete activities. Dependent: A helper completed the activities for the patient. Unknown: Not Applicable: Bed Mobility: 7 Transfers (B,C,W/C) (FIM): 7 Gait: 7 Indoor Mobility (Ambulation): Independent Patient states that she didn't really do stairs pre surgery. PT Evaluation-Current Subjective Patient in recliner pre tx, agrees to PT, has 6/10 pain in low back. Pt/Family Goals to be independent at home Objective Patient Orientation: Person, Place, Situation back brace ROM/Strength ROM Lower Extremities WNL Strenght Lower Extremities right lower extremity (hip flexion 3-/5, knee flexion 4/5, knee extension 4/5, dorsiflexion 5/5), left lower extremity (hip flexion 3-/5, knee flexion 4+/5, knee extension 4+/5, dorsiflexion 5/5) Neuromuscular (Tone, Coordination, Reflexes) NT Sensory Vision: Wears Glasses Hearing: Functional Sensation Right Lower Extremit: Impaired Sensation Left Lower Extremity: Impaired Sensation Lower Extremities Patient has intact light touch sensation in both lower extremities except has numbness on the bottom of her feet and toes. Transfers Therapy Code Descriptions/Definitions Functional [place] Measure: 0=Not Assessed/NA 4=Minimal Assistance 1=Total Assistance 5=Supervision or Setup 2=Maximal Assistance 6=Modified [place] 3=Moderate Assistance 7=Complete [place] Therapy Quality Codes: 6 Independent with activity with or without an assistive device 5 Patient requires set up or clean up by helper. Patient completes activity by themselves 4 Supervision or touching assist (CGA). [place] provide cues , steadying assist 3 The helper provides less than half the effort to complete the activity 2 The helper provides more than half the effort to complete the activity 1 Dependent. The helper does all the effort to complete an activity 7 Patient refused to complete or attempt activity 9 The patient did not perform the activity before the current illness or injury 88 Not attempted due to Medical conditions or safety concerns Transfers (B, C, W/C) (FIM): 3 Scootin Rollin Roll Left to Right (QC): 4 Supine to/from Sit: 5 Sit to/from Stand: 5 Sit to Lying (QC): 4 Lying to Sitting/Side of Bed(Q: 4 Sit to Stand (QC): 4 Chair/Spy-ht-Eiwxj Xfer(QC): 4 Car Transfer (QC): 2 Patient performs bed mobility with SBA, supine <-> sit with SBA, sit <-> stand with SBA, transfers with SBA, car transfer mod assist. Patient needs occasional cues for positioning and help with both legs getting into and out of the car transfer machine. Gait Does the Patient Walk?: Yes Mode of Locomotion: Walk Anticipated Mode of Locomotion: Walk Gait (FIM): 5 Walk 10 feet (QC): 4 Walk 50 ft with 2 Turns(QC): 4 Walk 150 ft (QC): 4 Walking 10ft/uneven surface-QC: 4 Distance: 150'x2 Gait Level of Assist: 5 Gait Persons Needed: 1 Gait Assistive Device: FWW Comments/Gait Description Patient can ambulate 150' with a rolling walker with SBA (including 50' with at least 2 turns of 90 degrees and 10' over an uneven surface). Patient has antalgic ambulation, slow, but steady, no LOB. Wheelchair Training Does the Pt Use a Wheelchair?: No Stairs Stairs (FIM): 1 #of Steps: 1 Level of Assist: 4 1 Step (curb) (QC): 4 Assistive Device: Walker Patient can go up an down 1 step using a rolling walker with CGA. Cues for foot placement. Balance Sitting Static: Good Sitting Dynamic: Good Standing Static: Good Standing Dynamic: Good Treatment parallel bars exercises: mini-squats x10, heel raises x15, hip abd x10, marching x10. LAQ alternating for 5 min. Assessment/Needs Patient has impaired mobility, strength, endurance. She is aware of her precautions and when to wear her back brace. Rehab Potential: Fair PT Short Term Goals Short Term Goals Time Frame: Sep 30, 2018 Transfers (B,C,W/C) (FIM): 5 Gait (FIM): 5 Gait Distance Comment: 200' Gait Level of Assist: 5 Gait Assistive Device: FWW PT Intermediate Goals Documentation Billing Clerk Goals PT Documentation Billing Clerk Goals Time Frame: October 14, 2018 Transfers (B,C,W/C) (FIM): 6 Sit to Lying (QC): 6 Lying-Sitting on Side/Bed(QC): 6 Sit to Stand (QC): 6 Rollin Roll Left to Right (QC): 6 Chair/Qja-zf-Ibcqe Xfer(QC): 6 Car Transfer (QC): 6 Gait (FIM): 6 Distance: 300' Walk 10 feet (QC): 6 Walk 10ft-Uneven Surface(QC): 6 Walk 50ft with 2 Turns (QC): 6 Walk 150 ft (QC): 6 Gait Level of Assist: 6 Gait Assistive Device: FWW Stairs (FIM): 2 # of Steps: 4 1 Step (curb) (QC): 4 4 Steps (QC): 4 Stairs Level Of Assist: 5 PT Plan Problem List Problem List: Activity Tolerance, Functional Strength, Safety, Balance, Gait, Transfer, Bed Mobility, ROM Treatment/Plan Treatment Plan: Continue Plan of Care Treatment Plan: Bed Mobility, Education, Functional Activity Sri, Functional Strength, Group Therapy, Gait, Safety, Therapeutic Exercise, Transfers Treatment Duration: October 14, 2018 Frequency: At least 5 of 7 days/Wk (IRF) Estimated Hrs Per Day: 1.5 hours per day Patient and/or Family Agrees t: Yes Safety Risks/Education Patient Education: Gait Training, Transfer Techniques, Steps, Reviewed Precautions, Correct Positioning, Reviewed Don/Doff Brace, Safety Issues Teaching Recipient: Patient Teaching Methods: Demonstration, Discussion Response to Teaching: Reinforcement Needed Discharge Recommendations Plan Patient will perform bed mobility and transfer training, balance and endurance training, functional strengthening, stair training, gait training, and education , to improve functional mobility and independence at home. Therapy D/C Recommendations: Home w/ Family Support Time/GCodes Time In: 1015 Time Out: 1115 Total Billed Treatment Time: 60 Total Billed Treatment 1 visit EVM 30' GT 15' EX 15' JIMMIE SOUZA PT Sep 23, 2018 11:17
[2018-09-23] MEDS ORDERED: POLYETHYLENE GLYCOL 17 GM (MIRALAX) PACK PO SCH (13:00)
[2018-09-23] MEDS ORDERED: PANT40TA2 PO (13:07)
[2018-09-23] MEDS ORDERED: CYAN10006 PO (13:07)
[2018-09-23] MEDS ORDERED: ASCO10006 PO (13:07)
[2018-09-23] MEDS ORDERED: PYRI100T2 PO (13:07)
--- NOTE | 2018-09-23 13:08 | NUR ---
REVIEWED MEDICATIONS THEY WERE TAKEN AT HOME PRIOR TO DISCHARGE FROM [facility] USING THE DISCHARGE INSTRUCTIONS, COMPARING WITH THE EXT MED HX, AND THE LIST OF MEDICATIONS WE HAD ON FILE FROM HER PREVIOUS ADMISSION HERE. NOTE THE FOLLOWING CHANGES WERE MADE WHEN THE PATIENT DISCHARGED FROM [facility] THAT ARE NOT CURRENTLY REFLECTED ON THE HOME MED REC: START TAKING: HYDROCODONE 5-325MG 1-2 PO COLACE 100MG BID STOP TAKING: NAPROXEN 500MG BID TRAMADOL/APAP 37.5-325MG TID ASPIRIN 81MG DAILY CO Q 10 DAILY FISH OIL DAILY I CHANGED THE PROTONIX FROM BID TO ONCE DAILY BECAUSE THAT IS HOW IS WAS FILLED LAST ACCORDING TO THE EXT MED HX. ALSO ADDED VITAMIN B12, B6, AND VITAMIN C FROM THE DISCHARGE LIST FROM [facility]. THE MEDS ARE REPORTED WITH DIFFERENT DIRECTIONS THAN THE EXT MED HX SHOWS ON THE GABAPENTIN AND TRAZODONE HOWEVER THE PATIENT HAD REPORTED TAKING THEM DIFFERENTLY THAN PRESCRIBED AT HER PREVIOUS ADMISSION SO I LEFT THEM THEY WERE.
--- NOTE | 2018-09-23 14:13 | Occupational Therapy Eval ---
OT Evaluation-General/PLF Medical Diagnosis Admission Date Sep 22, 2018 at 17:30 Medical Diagnosis: Back Surgery Onset Date: Sep 23, 2018 Therapy Diagnosis Therapy Diagnosis: Weakness Height/Weight Height (Feet): 5 Height (Inches): 7.00 Weight (Pounds): 200 Weight (Ounces): 8.0 Precautions Precautions/Isolations: Fall Prevention, Standard Precautions Safety Interventions: None Weight Bear Status Weight Bearing Restriction: Weight Bearing/Tolerated Referral Physician: Tracie Mcneil DO Referral Reason: Activity Tolerance, Self Care, Evaluation/Treatment, Strengthening/ROM Medical History Pertinent Medical History: Arthritis, GERD, HTN, Hypothroidism, OA Additional Medical History DDD, hysterectomy Current History Pt. had back surgery 15 months ago. Began having more pain. 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 Surgery to remove cyst and rods replaced. Reviewed History: Yes Social History Home: Single Level Current Living Status: Alone Entry Into Home: Ramp ADL-Prior Level of Function Therapy Code Descriptions/Definitions Functional [place] Measure: 0=Not Assessed/NA 4=Minimal Assistance 1=Total Assistance 5=Supervision or Setup 2=Maximal Assistance 6=Modified [place] 3=Moderate Assistance 7=Complete [place] Therapy Quality Codes: 6 Independent with activity with or without an assistive device 5 Patient requires set up or clean up by helper. Patient completes activity by themselves 4 Supervision or touching assist (CGA). [place] provide cues , steadying assist 3 The helper provides less than half the effort to complete the activity 2 The helper provides more than half the effort to complete the activity 1 Dependent. The helper does all the effort to complete an activity 7 Patient refused to complete or attempt activity 9 The patient did not perform the activity before the current illness or injury 88 Not attempted due to Medical conditions or safety concerns Functional Abilities and Goals: Independent: Patient completed the activities by him/herself, with or without an assistive device, with no assistance from a helper. Needed Some Help: Patient needed partial assistance from another person to complete activities. Dependent: A helper completed the activities for the patient. Unknown: Not Applicable: ADL PLOF Comments Pt. was independent previous to this hospitalization with daily skills. States that she was beginning to have have right LE weakness, which made stepping into car difficult. Self Care: Independent Functional Cognition: Independent DME/Equipment: Bath Chair, Shower DME/Equipment Comments Pt. has walker and hip kit. Drive Self: Yes OT Current Status Subjective Pt. reports pain in back, but does not report pain level. Pt. has brace to wear when up. Appearance Pt. up in chair. Agrees to work with OT. Mental Status/Objective Patient Orientation: Person, Place, Time, Situation Current Glasses/Contacts: Yes Hand Dominance: Right Upper Extremity ROM WFL ADL-Treatment Grooming (FIM): 5 (SBA standing at sink to brush hair and teeth.) Oral Hygiene (QC): 4 Bathing (FIM): 3 (Pt. requires assistance to wash bilateral feet and legs.) Shower/Bathe Self (QC): 3 Upper Body Dressing (FIM): 5 Upper Body Dressing (QC): 4 Lower Body Dressing (FIM): 2 (Pt. unable to bring feet up to him) Lower Body Dressing (QC): 2 On/Off Footwear (QC): 2 Transfers (B, C, W/C) (FIM): 4 (CGA in stance to ambulate.) Shower Transfer (FIM): 4 Other Treatments OT spoke with nursing previous to showering pt. Nurse okay with pt. showering. Education OT Patient Education: Correct positioning, Modified ADL techniques, Progress toward Goal/Update tx plan, Purpose of tx/functional activities, Reviewed precautions, Rehab process, Transfer techniques Teaching Recipient: Patient Teaching Methods: Demonstration, Discussion Response to Teaching: Verbalize Understanding, Return Demonstration OT Short Term Goals Short Term Goals Time Frame: Sep 30, 2018 Eating(FIM): 6 Grooming(FIM): 5 Bathing(FIM): 4 Upper Body Dressing(FIM): 5 Lower Body Dressing(FIM): 4 Toileting(FIM): 5 Transfers (B,C,W/C) (FIM): 5 Toilet/Commode Transfer(FIM): 5 Shower Transfer(FIM): 5 Additional Short Term Goals: 1-Demonstrate ADL Tasks, 2-Verbalize Understanding , 3-ImproveStrength/Sri 1=Demonstrate adherence to instructed precautions during ADL tasks. 2=Patient will verbalize/demonstrate understanding of assistive devices/ modifications for ADL. 3=Patient will improve strength/tolerance for activity to enable patient to perform ADL's. OT Longterm Goals Project Engineering Manager Goals Time Frame: Oct 07, 2018 Eating (FIM): 6 Eating (QC): 6 Groomin Oral Hygiene (QC): 6 Bathing(FIM): 5 Shower/Bathe Self (QC): 5 Upper Body Dressing(FIM): 6 Upper Body Dressing (QC): 6 Lower Body Dressing(FIM): 6 Lower Body Dressing (QC): 6 On/Off Footwear (QC): 6 Toileting(FIM): 6 Toileting Hygiene (QC): 6 Transfers (B,C,W/C) (FIM): 6 Toilet/Commode Transfer(FIM): 6 Toilet/Commode Transfer (QC): 6 Shower Transfer(FIM): 5 Additional Goals: 1-Demonstrate ADL Tasks, 2-Verbalize Understanding, 3- ImproveStrength/Sri 1=Demonstrate adherence to instructed precautions during ADL tasks. 2=Patient will verbalize/demonstrate understanding of assistive devices/ modifications for ADL. 3=Patient will improve strength/tolerance for activity to enable patient to perform ADL's. OT Education/Plan Problem List/Assessment Assessment: Decreased Activ Tolerance, Decreased UE Strength, Dependent Transfers, Impaired I ADL's, Impaired Self-Care Skills Discharge Recommendations Plan/Recommendations: Continue POC Therapy D/C Recommendations: Home w/ Family Support, Occupational Therapy Home Care Treatment Plan/Plan of Care Treatment,Training & Education: Yes Patient would benefit from OT for education, treatment and training to promote independence in ADL's, mobility, safety and/or upper extremity function for ADL' s. Plan of Care: ADL Retraining, Functional Mobility, Group Exercise/Act as Ind, UE Funct Exercise/Act Treatment Duration: Oct 07, 2018 Frequency: At least 5 of 7 days/Wk (IRF) Estimated Hrs Per Day: 1.5 hours per day Agreement: Yes Rehab Potential: Good Time/GCodes Start Time: 09:20 Stop Time: 10:20 Total Time Billed (hr/min): 60 Billed Treatment Time 1, EVM x 15minutes, ADL x 45minutes GEETA TRINIDAD OT Sep 23, 2018 14:13
--- NOTE | 2018-09-23 14:22 | Occupational Ther Daily Note ---
OT Current Status-Daily Note Subjective No pain reported. Appearance Pt. up in chair. Agrees to work with therapy. Mental Status/Objective Patient Orientation: Person, Place, Time, Situation Therapy Code Descriptions/Definitions Functional [place] Measure: 0=Not Assessed/NA 4=Minimal Assistance 1=Total Assistance 5=Supervision or Setup 2=Maximal Assistance 6=Modified [place] 3=Moderate Assistance 7=Complete [place] ADL-Treatment Therapy Code Descriptions/Definitions Functional [place] Measure: 0=Not Assessed/NA 4=Minimal Assistance 1=Total Assistance 5=Supervision or Setup 2=Maximal Assistance 6=Modified [place] 3=Moderate Assistance 7=Complete [place] Therapy Quality Codes: 6 Independent with activity with or without an assistive device 5 Patient requires set up or clean up by helper. Patient completes activity by themselves 4 Supervision or touching assist (CGA). [place] provide cues , steadying assist 3 The helper provides less than half the effort to complete the activity 2 The helper provides more than half the effort to complete the activity 1 Dependent. The helper does all the effort to complete an activity 7 Patient refused to complete or attempt activity 9 The patient did not perform the activity before the current illness or injury 88 Not attempted due to Medical conditions or safety concerns Lower Body Dressing (FIM): 4 (Pt. issued AE and practiced doffing/donning socks with sock aide, and doffing/donning shoes with DS. OT issued pt. elastic laces in shoes.) Lower Body Dressing (QC): 4 On/Off Footwear (QC): 4 Toileting (FIM): 4 (CGA in stance. Pt. able to cleanse self after BM, but reports that she does have some sensory loss in young area. Educated on how to make sure that she has in fact cleanses self.) Toileting Hygiene (QC): 4 Transfers (B, C, W/C) (FIM): 4 Toilet/Commode Transfer (FIM): 4 Toilet Transfer (QC): 4 Other Treatment Pt. issued AE. Education OT Patient Education: Correct positioning, Modified ADL techniques, Progress toward Goal/Update tx plan, Purpose of tx/functional activities, Reviewed precautions, Rehab process, Transfer techniques, Use of adapted equipment Teaching Recipient: Patient Teaching Methods: Demonstration, Discussion Response to Teaching: Verbalize Understanding, Return Demonstration OT Short Term Goals Short Term Goals Time Frame: Sep 30, 2018 Eating(FIM): 6 Grooming(FIM): 5 Bathing(FIM): 4 Upper Body Dressing(FIM): 5 Lower Body Dressing(FIM): 4 Toileting(FIM): 5 Transfers (B,C,W/C) (FIM): 5 Toilet/Commode Transfer(FIM): 5 Shower Transfer(FIM): 5 Additional Short Term Goals: 1-Demonstrate ADL Tasks, 2-Verbalize Understanding , 3-ImproveStrength/Sri 1=Demonstrate adherence to instructed precautions during ADL tasks. 2=Patient will verbalize/demonstrate understanding of assistive devices/ modifications for ADL. 3=Patient will improve strength/tolerance for activity to enable patient to perform ADL's. OT Assisted Goals Is Consultant Goals Time Frame: Oct 07, 2018 Eating (FIM): 6 Eating (QC): 6 Groomin Oral Hygiene (QC): 6 Bathing(FIM): 5 Shower/Bathe Self (QC): 5 Upper Body Dressing(FIM): 6 Upper Body Dressing (QC): 6 Lower Body Dressing(FIM): 6 Lower Body Dressing (QC): 6 On/Off Footwear (QC): 6 Toileting(FIM): 6 Toileting Hygiene (QC): 6 Transfers (B,C,W/C) (FIM): 6 Toilet/Commode Transfer(FIM): 6 Toilet/Commode Transfer (QC): 6 Shower Transfer(FIM): 5 Additional Goals: 1-Demonstrate ADL Tasks, 2-Verbalize Understanding, 3- ImproveStrength/Sri 1=Demonstrate adherence to instructed precautions during ADL tasks. 2=Patient will verbalize/demonstrate understanding of assistive devices/ modifications for ADL. 3=Patient will improve strength/tolerance for activity to enable patient to perform ADL's. OT Education/Plan Problem List/Assessment Assessment: Decreased Activ Tolerance, Dependent Transfers, Impaired I ADL's, Impaired Self-Care Skills Discharge Recommendations Plan/Recommendations: Continue POC Therapy D/C Recommendations: Home Independently, Occupational Therapy Home Care Treatment Plan/Plan of Care Treatment,Training & Education: Yes Patient would benefit from OT for education, treatment and training to promote independence in ADL's, mobility, safety and/or upper extremity function for ADL' s. Plan of Care: ADL Retraining, Functional Mobility, Group Exercise/Act as Ind, UE Funct Exercise/Act Treatment Duration: Oct 07, 2018 Frequency: At least 5 of 7 days/Wk (IRF) Estimated Hrs Per Day: 1.5 hours per day Agreement: Yes Rehab Potential: Good Time/GCodes Start Time: 13:05 Stop Time: 13:35 Total Time Billed (hr/min): 30 Billed Treatment Time 1, ADL x 2 GEETA TRINIDAD OT Sep 23, 2018 14:22
--- NOTE | 2018-09-23 15:22 | Physical Therapy Daily Note ---
PT Daily Note-Current Subjective Agreeable to PT. Reports she is already feeling stronger. Mental Status Patient Orientation: Person, Place, Time, Situation Transfers Therapy Code Descriptions/Definitions Functional [place] Measure: 0=Not Assessed/NA 4=Minimal Assistance 1=Total Assistance 5=Supervision or Setup 2=Maximal Assistance 6=Modified [place] 3=Moderate Assistance 7=Complete [place] Therapy Quality Codes: 6 Independent with activity with or without an assistive device 5 Patient requires set up or clean up by helper. Patient completes activity by themselves 4 Supervision or touching assist (CGA). [place] provide cues , steadying assist 3 The helper provides less than half the effort to complete the activity 2 The helper provides more than half the effort to complete the activity 1 Dependent. The helper does all the effort to complete an activity 7 Patient refused to complete or attempt activity 9 The patient did not perform the activity before the current illness or injury 88 Not attempted due to Medical conditions or safety concerns Treatments Pt ambulated 200 ft x 2 with FWW with CGA; required extra time to transfer sit to stand but worked on transfer x 5 reps with pt demonstrating correct use of hand placement. Nu step on level 2 x 13 minutes to promote LE strength and functional activity tolerance. Assessment Current Status: Good Progress Pt progressing well. PT Short Term Goals Short Term Goals Time Frame: Sep 30, 2018 Transfers (B,C,W/C) (FIM): 5 Gait (FIM): 5 Gait Distance Comment: 200' Gait Level of Assist: 5 Gait Assistive Device: FWW PT Clinical Material Handler Goals Clinical Material Handler Goals PT Clinical Material Handler Goals Time Frame: October 14, 2018 Transfers (B,C,W/C) (FIM): 6 Sit to Lying (QC): 6 Lying-Sitting on Side/Bed(QC): 6 Sit to Stand (QC): 6 Rollin Roll Left to Right (QC): 6 Chair/Uio-sl-Dlewt Xfer(QC): 6 Car Transfer (QC): 6 Gait (FIM): 6 Distance: 300' Walk 10 feet (QC): 6 Walk 10ft-Uneven Surface(QC): 6 Walk 50ft with 2 Turns (QC): 6 Walk 150 ft (QC): 6 Gait Level of Assist: 6 Gait Assistive Device: FWW Stairs (FIM): 2 # of Steps: 4 1 Step (curb) (QC): 4 4 Steps (QC): 4 Stairs Level Of Assist: 5 PT Plan Problem List Problem List: Activity Tolerance, Functional Strength, Safety, Balance, Gait, Transfer Treatment/Plan Treatment Plan: Continue Plan of Care Treatment Plan: Bed Mobility, Education, Functional Activity Sri, Functional Strength, Group Therapy, Gait, Safety, Therapeutic Exercise, Transfers Treatment Duration: October 14, 2018 Frequency: At least 5 of 7 days/Wk (IRF) Estimated Hrs Per Day: 1.5 hours per day Patient and/or Family Agrees t: Yes Safety Risks/Education Patient Education: Transfer Techniques, Safety Issues Teaching Recipient: Patient Teaching Methods: Demonstration, Discussion Response to Teaching: Return Demonstration Time/GCodes Time In: 1346 Time Out: 1417 Total Billed Treatment Time: 31 Total Billed Treatment visit EX 15 GT 16 KRYSTIAN GREWAL PT Sep 23, 2018 15:22
--- NOTE | 2018-09-23 16:40 | NUR ---
MUSIC LIBRARY ASSISTANT met with patient to complete initial assessment. Patient was alert and oriented x4 and agreeable to assessment. Patient known to MUSIC LIBRARY ASSISTANT, as she previously completed ARU program in Jun 2017 following surgery for treatment of lumbar spinal stenosis (surgeon, Dr. Clements at [place]). She now admits to ARU from [facility] following 2nd lumbar procedure. Patient resides alone in a double wide trailer in [place], [place]. Patient has a metal ramp from [facility] for easier accessibility to the entrance of the home. Prior to this surgery, She was independent with self care, but had difficulties with lower body ADLs such as socks and shoes. She possess a hip kit and FWW; however, did not utilize the FWW prior to admission. Patient identifies niece, Tami Born as primary contact ([phone]) and brother, Olvin Gambino of [place] as a secondary contact ([phone]). Verified PCP as Dr. Hardy, [facility] as Dr. Bustos, Urologist as Dr. Stoddard and Dr Portillo of [place] for management of arthritis. Patient has [facility] and [facility] for insurance coverage with [employer] prescription coverage. She receives prescriptions by mail, but [facility] for local pharmacy needs. MUSIC LIBRARY ASSISTANT reviewed typical rehab length of stay and weekly team conferences with patient, she expressed no concerns. Patient open to HHC or OP therapies at discharge, if needed. MUSIC LIBRARY ASSISTANT will follow for appropriate discharge needs.
[2018-09-23 18:18] VITALS: BP 115/69
--- NOTE | 2018-09-23 19:29 | NUR ---
Patient reports moderate BM this afternoon. Lactulose and Senna changed to PRN. Miralax changed to daily in AM per patient's request.
[2018-09-23] MEDS ORDERED: SENNA W/DOCUSATE (SENOKOT S) TABLET PO PRN (19:30)
[2018-09-23] MEDS ORDERED: LACTULOSE SYRUP 10GM/15ML (ENULOSE) 30ML UDC PO PRN (19:30)
[2018-09-23] MEDS: traZODone 50 MG (DESYREL) TAB PO SCH (21:33)
[2018-09-24] MEDS: HYDROcodone/APAP 10 MG/325 MG (LORTAB) TAB PO PRN ×3 (05:50→19:37)
[2018-09-24] MEDS: LEVOTHYROXINE 125 MCG (LEVOTHROID) TABLET PO SCH (05:50)
[2018-09-24] MEDS: MULTIVIT W/MINERALS TAB (THERAGRAN M) PO SCH (05:51)
[2018-09-24] MEDS: KCL 10 MEQ TAB (MICRO K) PO SCH (05:51)
[2018-09-24 06:01] VITALS: BP 112/68
[2018-09-24 08:26] VITALS: BP 122/70
[2018-09-24] MEDS: POLYETHYLENE GLYCOL 17 GM (MIRALAX) PACK PO SCH (08:28)
[2018-09-24] MEDS: GABAPENTIN 300 MG (NEURONTIN) CAP PO SCH ×3 (08:29→23:04)
[2018-09-24] MEDS: amLODIPine 5 MG (NORVASC) TAB PO SCH (08:29)
[2018-09-24] MEDS: FLUTICASONE NASAL SPRAY (FLONASE) 16 GM BTL NS SCH ×2 (08:29→23:07)
[2018-09-24] MEDS: LOSARTAN 100 MG (COZAAR) TABLET PO SCH (08:29)
[2018-09-24] MEDS: MAGNESIUM OXIDE (MAG-OX)400 MG TAB PO SCH (08:29)
[2018-09-24] MEDS: LORATADINE (CLARITIN) 10 MG TAB PO SCH (08:29)
[2018-09-24] MEDS: BACLOFEN 10 MG (LIORESAL) TAB PO SCH ×3 (08:29→23:04)
[2018-09-24] MEDS: PANTOPRAZOLE 40 MG (PROTONIX) TAB PO SCH ×2 (08:29→23:03)
[2018-09-24] MEDS: CARVEDILOL 6.25 MG (COREG) TAB PO SCH ×2 (08:29→23:04)
--- NOTE | 2018-09-24 08:34 | Individualized Plan of Care ---
Individualized Plan of Care Rehab Nursing IPOC Order Admission Date Sep 22, 2018 at 17:30 Current Orders Orders Admission Order(Inpt,Obs,Sdc) (09/22/18 14:19) Vital Signs: Routine (Order) 08,16,00 (09/22/18 14:19) Software Applications Designer-Inpt Rehab Con (09/22/18 14:19) Rehab Nursing Orders-Ipoc (09/22/18 14:19) Physical Therapy Rehab Orders (09/22/18 14:19) Occupational Therapy Rehab Ord (09/22/18 14:19) Speech Therapy Rehab Orders (09/22/18 14:19) General/Regular (09/22/18 Dinner) Intake & Output 06,14,22 (09/22/18:) Precautions (Aru) (09/22/18:19) Weekly Weight (Lbs) WEEK (09/22/18:19) Rehab-Intensity Of Therapy (09/22/18:) Cbc With Automated Diff (09/23/18 06:00) Comprehensive Metabolic Panel (09/23/18 06:00) Code/Resuscitation (09/22/18:) Initiate Admission Nursing Pro .admission (09/22/18 14:) Consult Physician (09/22/18:19) Acetaminophen Tablet (Tylenol Tablet) (09/22/18 14:30) Alprazolam Tablet (Xanax Tablet) (09/22/18 14:30) Calcium Carbonate Chew Tablet (Antacid C (09/22/18 14:30) Diphenhydramine Tablet (Benadryl Tablet) (09/22/18 14:30) Docusate Sodium Capsule (Colace Capsule) (09/22/18 14:30) Loperamide Capsule (Imodium Capsule) (09/22/18 14:30) Melatonin Tablet (Melatonin Tablet) (09/22/18 14:30) Ondansetron Oral Dissolve Tab (Zofran (09/22/18 14:30) Baclofen Tablet (Lioresal Tablet) (09/22/18 21:00) Carvedilol Tablet (Coreg Tablet) (09/22/18 21:00) Fluticasone Nasal [place] (Flonase Nasal S (09/22/18 21:00) Gabapentin Capsule/Tablet (Neurontin Cap (09/22/18 21:00) Levothyroxine Tablet (Synthroid Tablet) (09/23/18 06:30) Losartan Tablet (Cozaar Tablet) (09/23/18 09:00) Pantoprazole Tablet (Protonix Tablet) (09/22/18 21:00) Trazodone Tablet (Desyrel Tablet) (09/22/18 21:00) (Nf) Amlodipine Besylate (09/23/18 09:00) (Nf) Cetirizine Hcl (Zyrtec) (09/23/18 09:00) (Nf) Magnesium Oxide (Magnesium) (09/23/18 09:00) (Nf) Multivitamin (Daily Vitamin Formula (09/23/18 09:00) (Nf) Polyethylene Glycol 3350 (Miralax) (09/23/18 09:00) (Nf) Potassium Chloride (09/23/18 09:00) (Nf) Tramadol Hcl/Acetaminophen (Tramado (09/22/18 17:45) (Nf) Vitamin B Complex (09/23/18 09:00) Amlodipine Tablet (Norvasc Tablet) (09/23/18 09:00) Loratadine Tablet (Claritin Tablet) (09/23/18 09:00) Magnesium Oxide Tablet (Mag Ox Tablet) (09/23/18 08:00) Therapeutic Multivitamin Tab (Vitamins, (09/23/18 07:00) Potassium Chloride (Tablet) (Klor Con Ta (09/23/18 07:00) Polyethylene Glycol Powder Pkt (Miralax (09/22/18 21:00) Tramadol Tablet (Ultram Tablet) (09/22/18 18:15) Acetaminophen Tablet/Caplet (Tylenol T (09/22/18 18:15) Hydrocodone/Apap 10/325 Tablet (Lortab 1 (09/22/18 19:45) Ambulate 08,12,20 (09/22/18 20:59) Sequential Compression Device 08,20 (09/22/18 20:59) Dvt/Vte Risk - Notifiy Physici 08 (09/22/18 20:59) Polyethylene Glycol Powder Pkt (Miralax (09/23/18 13:00) Lactulose Oral Solution (Enulose Oral So (09/23/18 10:00) Senna S Tablet (Senokot S Tablet) (09/23/18 10:00) Patient Visit (09/23/18 ) Speech Sound Lang Comp (09/23/18 ) Patient Visit (09/23/18 ) Pt Eval Moderate Complexity (09/23/18 ) Exercise Therap, Ea 15 Min (09/23/18 ) Gait Training, Ea 15 Min (09/23/18 ) Patient Visit (09/23/18 ) Exercise Therap, Ea 15 Min (09/23/18 ) Gait Training, Ea 15 Min (09/23/18 ) Lactulose Oral Solution (Enulose Oral So (09/23/18 19:30) Polyethylene Glycol Powder Pkt (Miralax (09/24/18 09:00) Senna S Tablet (Senokot S Tablet) (09/23/18 19:30) Rehab Nursing Orders: Ongoing Assess. of Function Status Intensity of Therapy to be met Patient to be seen: Min.3h per day/5 of 7d PT IPOC Problem List: Activity Tolerance, Functional Strength, Safety, Balance, Gait, Transfer Treatment Plan: Continue Plan of Care Bed Mobility, Education, Functional Activity Sri, Functional Strength, Group Therapy, Gait, Safety, Therapeutic Exercise, Transfers Treatment Duration: October 14, 2018 Frequency: At least 5 of 7 days/Wk (IRF) Estimated Hrs Per Day: 1.5 hours per day OT IPOC Problems: Decreased Activ Tolerance, Dependent Transfers, Impaired I ADL's, Impaired Self-Care Skills OT Treatment, Training and Edu: Yes Plan of Care: ADL Retraining, Functional Mobility, Group Exercise/Act as Ind, UE Funct Exercise/Act Treatment Duration: Oct 07, 2018 Frequency: At least 5 of 7 days/Wk (IRF) Estimated Hrs Per Day: 1.[address] IPOC Speech Therapy Treatment Plan: Discontinue ST Treatment Duration: Sep 23, 2018 Frequency: 1 time per week Estimated Hrs Per Day: .25 hour per day Software Applications Designer/Case Mgmt Software Applications Designer/Case Managemen: Discharge Planning Dietitian/Training Designer Dietitian/Training Designer to monitor nutritional status and make changes and/or recommendations as needed and work with speech pathology on dietary upgrades as the occur. Physician IPOC Medical Issues being managed closely and that require the 24 hour availability of a physician: Narcotic bowel status post spine surgery will need close monitoring until resolution Monitor blood pressure closely since it could vary in readings Fall risk prevention Medical Issues: Bowel/Bladder Function, DVT Prophylaxis, Falls Precautions, Fluid/Electrolyte/Nutrition Balance, Pain Management Brief Synthesis of Preadmission Screen, Post-Admission Evaluation, and Therapy Evaluations: PT will manage ambulation deficits OT will improve independent ADL's Medical Prognosis: good Anticipated Length of Stay: 7 days DANIELA BHARDWAJ DO Sep 24, 2018 08:34
--- NOTE | 2018-09-24 08:34 | PM&R Progress Note ---
Subjective HPI/CC On Admission Date Seen by Provider: Sep 24, 2018 Time Seen by Provider: 08:15 CC: Debility following lumbar spine surgery HPI: This is a 68yoWF clinic patient of Dr Hardy who was DC from [facility] in [place] after extensive lumbar spine surgery which included cyst removal with dural tear who is in need of rehab prior to going home to live alone. Patient required supine position for 24 hours after surgery and has since done very well. Anemia post op was noted but no indication for transfusion. Post op constipation will need resolved and she will need PT/OT to overcome barriers of inability to ambulate in a safe manner and perform independent ADL's in order to recover and return home to prior functioning level of independent status. I have restarted all home meds and restarted Lortab 10 which she was receiving at [facility]. Subjective/Events-last exam Patient doing much better Had a bowel movement after multiple meds given yesterday so we'll change that to when necessary Numb around her rectal region and we discussed that Voiding well without retention or incontinence Pain is well-controlled on Lortab 10/325 Eating and drinking well Reviewed therapy notes Review of Systems General: Fatigue Musculoskeletal: back pain Neurological: Incoordination Objective Exam Vital Signs Vital Signs Date Time Temp Pulse Resp B/P (MAP) Pulse Ox O2 Delivery O2 Flow Rate FiO2 09/24/18 09:00 Room Air 09/24/18 08:26 84 122/70 (87) 09/24/18 06:01 99.9 18 94 Capillary Refill : Less Than 3 Seconds General Appearance: No Apparent Distress, WD/WN, Chronically ill HEENT: PERRL/EOMI, Normal ENT Inspection, Pharynx Normal, Moist Mucous Membranes Neck: Full Range of Motion, Normal Inspection, Non Tender, Supple Respiratory: Chest Non Tender, Lungs Clear, Normal Breath Sounds, No Accessory Muscle Use, No Respiratory Distress Cardiovascular: Regular Rate, Rhythm, No Edema, No Gallop, No JVD, No Murmur Gastrointestinal: Normal Bowel Sounds, No Organomegaly, No Pulsatile Mass, Non Tender, Soft Back: Decreased Range of Motion, Other (wearing brace) Extremity: Normal Capillary Refill, Normal Inspection, Normal Range of Motion, Non Tender, No Calf Tenderness, No Pedal Edema Neurologic/Psychiatric: Alert, Oriented x3, Normal Mood/Affect, Motor Weakness (4/5 strength bilateral LE) Skin: Normal Color, Warm/Dry Lymphatic: No Adenopathy Results/Procedures Lab Patient resulted labs reviewed. Assessment/Plan Assessment and Plan Assess & Plan/Chief Complaint Assessment: (1) Lumbar stenosis POD # [address] Clements at [facility] (2) Hypertension (3) Hyperlipidemia (4) KORTNEY on CPAP (5) GERD (gastroesophageal reflux disease) (6) IBS (irritable bowel syndrome) (7) Constipation-resolved 09/23/18 (8) Anxiety (9) Acute blood loss as cause of postoperative anemia (10) Esophageal reflux disease (11) Hypothyroidism Plan: Debility resolution before going home Continue close BP monitoring (1) Lumbar stenosis (2) Hypertension (3) Hyperlipidemia (4) KORTNEY on CPAP (5) GERD (gastroesophageal reflux disease) (6) IBS (irritable bowel syndrome) (7) Constipation (8) Anxiety (9) Acute blood loss as cause of postoperative anemia (10) Esophageal reflux disease (11) Hypothyroidism Clinical Quality Measures DVT/VTE Risk/Contraindication: Risk Factor Score Per Nursin RFS Level Per Nursing on Admit: 4+=Very High DANIELA BHARDWAJ DO Sep 24, 2018 08:34
--- NOTE | 2018-09-24 09:39 | Consultation ---
History of Present Illness History of Present Illness Patient Consulted On(anson/time) 09/24/18 09:35 Date Seen by Provider: Sep 24, 2018 Time Seen by Provider: 10:00 Reason for Visit: STATUS POST BACK SURGERY Allergies and Home Medications Allergies Coded Allergies: adhesive (Verified Allergy, Intermediate, RASH, 06/02/18) rash from tape from OSH postop Sulfa (Sulfonamide Antibiotics) (Verified Allergy, Unknown, 12/21/06) Home Medications Amlodipine Besylate 5 Mg Tablet, 5 MG PO DAILY, (Reported) Ascorbic Acid 1,000 Mg Tablet, 1,000 MG PO DAILY, (Reported) Aspirin 81 Mg Tablet.dr, 81 MG PO DAILY, (Reported) Atorvastatin Calcium 40 Mg Tablet, 40 MG PO DAILY, (Reported) Baclofen 10 Mg Tablet, 10 MG PO TID, (Reported) Calcium Carbonate/Vitamin D3 1 Each Tablet, 1 TAB PO DAILY, (Reported) Carvedilol 6.25 Mg Tablet, 6.25 MG PO BID, (Reported) Cetirizine HCl 10 Mg Tablet, 10 MG PO DAILY, (Reported) Cholecalciferol (Vitamin D3) 5,000 Unit Capsule, 5,000 UNIT PO DAILY, (Reported) Cyanocobalamin (Vitamin B-12) 1,000 Mcg Tablet, 1,000 MCG PO DAILY, (Reported) Fluticasone Propionate 16 Gm [place].susp, 1 SPRAY NS BID, (Reported) Gabapentin 300 Mg Capsule, 300 MG PO TID, (Reported) Levothyroxine Sodium 125 Mcg Tablet, 125 MCG PO DAILY, (Reported) Losartan Potassium 100 Mg Tablet, 100 MG PO DAILY, (Reported) Magnesium Oxide 400 Mg Tablet, 400 MG PO DAILY, (Reported) Multivitamin 1 Each Tablet, 1 TAB PO DAILY, (Reported) Naproxen 500 Mg Tablet, 500 MG PO BID, (Reported) Chambers 3 Polyunsat Fatty Acids 1,000 Mg Cap, 1,000 MG PO DAILY, (Reported) Pantoprazole Sodium 40 Mg Tablet.dr, 40 MG PO DAILY, (Reported) Polyethylene Glycol 3350 17 Gm Powd.pack, 17 GM PO DAILY, (Reported) Potassium Chloride 10 Meq Tab.er.prt, 10 MEQ PO DAILY, (Reported) Pyridoxine HCl 100 Mg Tablet, 100 MG PO DAILY, (Reported) Tramadol HCl/Acetaminophen 1 Each Tablet, 2 TAB PO Q6H PRN for PAIN-MODERATE, ( Reported) Trazodone HCl 50 Mg Tablet, 50 MG PO HS, (Reported) Ubidecarenone 100 Mg Capsule, 100 MG PO DAILY, (Reported) Vitamin B Complex 1 Each Capsule, 1 CAP PO DAILY, (Reported) Past Hldlurs-Ovujad-Mgsnru Hx Past Med/Social Hx: Reviewed Nursing Past Med/Soc Hx, Reviewed and Corrections made Patient Social History Alcohol Use: Denies Use Recreational Drug Use: No Smoking Status: Former Smoker 2nd Hand Smoke Exposure: No Recent Foreign Travel: No Contact w/Someone Who Travel: No Recent Infectious Disease Expo: No Recent Hopitalizations: Yes (ORTHO 4 STATES - LAMINECTOMY) Immunizations Up To Date Tetanus Booster (TDap): Unknown PED Vaccines UTD: Yes Date of Influenza Vaccine: Apr 28, 2018 Seasonal Allergies Seasonal Allergies: Yes Past Medical History Surgeries: Yes (carpal tunnel, bilat feet sx, back) Abdominal, Adenoidectomy, Hysterectomy, Orthopedic, Tonsillectomy Respiratory: Yes Sleep Apnea Currently Using CPAP: Yes Currently Using BIPAP: No Cardiac: Yes 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, Hypertension Neurological: No : No Reproductive Disorders: Yes ("I WAS INFERTILE.") Female Reproductive Disorders: Denies 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 WINDER History: Hysterectomy Sexually Transmitted Disease: No HIV/AIDS: No Genitourinary: Yes Kidney Stones Gastrointestinal: Yes Gastroesophageal Reflux, Irritable Bowel Musculoskeletal: Yes (S.I.joint disorder) Degenerate Disk Disease, Arthritis, Chronic Back Pain Endocrine: Yes Hypothyroidsim HEENT: No Cataract Loss of Vision: Denies Hearing Impairment: Bilateral Hearing Aide Cancer: No Psychosocial: Yes Anxiety Integumentary: No Blood Disorders: No (post surgery anemia) Adverse Reaction/Blood Tranf: No (2 units given on 06-12-17) Family Medical History Arthritis 19 MOTHER G8 SISTER Cardiovascular disease 19 MOTHER Deafness or hearing loss 19 FATHER Diabetes mellitus 19 MOTHER G8 SISTER FH: lupus 19 FATHER FH: skin cancer 19 MOTHER Hypercholesterolemia 19 MOTHER Hypertension 19 MOTHER Myocardial infarction 19 MOTHER Osteoporosis 19 MOTHER Prostate cancer G8 BROTHER G8 BROTHER Respiratory disorder 19 FATHER 19 MOTHER No Family History of: Drug abuse Heart Disease, Cancer, COPD, Hypertension Physical Exam-General Problems Physical Exam Vital Signs Vital Signs - First Documented 09/22/18 20:30 Temp 99.4 Pulse 77 Resp 20 B/P (MAP) 104/63 (77) Pulse Ox 93 O2 Delivery Room Air Capillary Refill : Less Than 3 Seconds Assessment/Plan Assessment/Plan Admission Status: Inpatient Order (span 2 midnights) Reason for Inpatient Admission: INPATIENT Clinical Quality Measures DVT/VTE Risk/Contraindication: Risk Factor Score Per Nursin RFS Level Per Nursing on Admit: 4+=Very High CHRISTINA BLACK MD Sep 24, 2018 09:39
--- NOTE | 2018-09-24 10:00 | Physical Therapy Daily Note ---
PT Daily Note-Current Subjective Pt. c/o some discomfort with movement and TRFs but does not rate. Pain Location: No Pain Reported Pain Description: Ache Mental Status Patient Orientation: Normal For Age Attachments: Other-See Comments (aspen back brace) Transfers Therapy Code Descriptions/Definitions Functional Richardson Measure: 0=Not Assessed/NA 4=Minimal Assistance 1=Total Assistance 5=Supervision or Setup 2=Maximal Assistance 6=Modified Richardson 3=Moderate Assistance 7=Complete Richardson Therapy Quality Codes: 6 Independent with activity with or without an assistive device 5 Patient requires set up or clean up by helper. Patient completes activity by themselves 4 Supervision or touching assist (CGA). [place] provide cues , steadying assist 3 The helper provides less than half the effort to complete the activity 2 The helper provides more than half the effort to complete the activity 1 Dependent. The helper does all the effort to complete an activity 7 Patient refused to complete or attempt activity 9 The patient did not perform the activity before the current illness or injury 88 Not attempted due to Medical conditions or safety concerns Transfers (B, C, W/C) (FIM): 5 Scootin Supine to/from Sit: 5 Sit to/from Stand: 5 Bed to/from Chair: 5 Car Transfer (QC): 4 pt. has some pain c/o during TRFs and takes some time and readjusts during TRF Gait Training Does the Patient Walk?: Yes Gait (FIM): 5 Distance (FIM): 3=150 ft (165x3) Gait Level of Assist: 5 Gait Persons Needed: 1 Gait Assistive Device: FWW flexed at trunk, slow, Exercises Supine Ex: Ankle pumps, Quad Set, Rolling, Glut sets, Heel Slides, Short Arc Quads, Scooting, Hip abd/add Supine Reps: 12 Seated Therapy Exercises: Ankle pumps, Sit to stand, Long arc quads, Hip flexion Seated Reps: 15 Standing: Hip Abduction, Hamstring curls, Heel/toe raises, Marching Standing Reps: 15 NuStep Minutes: 10 NuStep Workload: 1 Assessment Current Status: Good Progress PT Short Term Goals Short Term Goals Time Frame: Sep 30, 2018 Transfers (B,C,W/C) (FIM): 5 Gait (FIM): 5 Gait Distance Comment: 200' Gait Level of Assist: 5 Gait Assistive Device: FWW PT Senior Living Goals Senior Living Goals PT Senior Living Goals Time Frame: October 14, 2018 Transfers (B,C,W/C) (FIM): 6 Sit to Lying (QC): 6 Lying-Sitting on Side/Bed(QC): 6 Sit to Stand (QC): 6 Rollin Roll Left to Right (QC): 6 Chair/Yzk-im-Vsiiq Xfer(QC): 6 Car Transfer (QC): 6 Gait (FIM): 6 Distance: 300' Walk 10 feet (QC): 6 Walk 10ft-Uneven Surface(QC): 6 Walk 50ft with 2 Turns (QC): 6 Walk 150 ft (QC): 6 Gait Level of Assist: 6 Gait Assistive Device: FWW Stairs (FIM): 2 # of Steps: 4 1 Step (curb) (QC): 4 4 Steps (QC): 4 Stairs Level Of Assist: 5 PT Plan Treatment/Plan Treatment Plan: Continue Plan of Care Treatment Plan: Bed Mobility, Education, Functional Activity Sri, Functional Strength, Group Therapy, Gait, Safety, Therapeutic Exercise, Transfers Treatment Duration: October 14, 2018 Frequency: At least 5 of 7 days/Wk (IRF) Estimated Hrs Per Day: 1.5 hours per day Patient and/or Family Agrees t: Yes Safety Risks/Education Patient Education: Gait Training, Transfer Techniques, Correct Positioning, Disease Process, Safety Issues Teaching Recipient: Patient Teaching Methods: Demonstration, Discussion Response to Teaching: Verbalize Understanding, Return Demonstration, Reinforcement Needed Time/GCodes Time In: 900 Time Out: 1000 Total Billed Treatment Time: 60 Total Billed Treatment 1,EX25m,GT20m,FA15m G Codes Necessary: DHARA Martinez SIGNS CLEANER Sep 24, 2018 10:00
--- NOTE | 2018-09-24 10:30 | NUR ---
Patient had a shower by OT this morning, dressing on back changed. As dressing was removed, noted area of irritated skin noted to bleed. Area was cleansed and dressing arranged to cover irritated area.
--- NOTE | 2018-09-24 13:14 | Physical Therapy Daily Note ---
PT Daily Note-Current Subjective Pt. agrees to Rx and states that she realizes the importance of exercise after her last Rehab admit Pain Numeric Pain Scale: 4 Location: Left Location Body Site: Hip Pain Description: Ache Mental Status Patient Orientation: Normal For Age Attachments: Other-See Comments (aspen brace) Transfers Therapy Code Descriptions/Definitions Functional [place] Measure: 0=Not Assessed/NA 4=Minimal Assistance 1=Total Assistance 5=Supervision or Setup 2=Maximal Assistance 6=Modified [place] 3=Moderate Assistance 7=Complete [place] Therapy Quality Codes: 6 Independent with activity with or without an assistive device 5 Patient requires set up or clean up by helper. Patient completes activity by themselves 4 Supervision or touching assist (CGA). [place] provide cues , steadying assist 3 The helper provides less than half the effort to complete the activity 2 The helper provides more than half the effort to complete the activity 1 Dependent. The helper does all the effort to complete an activity 7 Patient refused to complete or attempt activity 9 The patient did not perform the activity before the current illness or injury 88 Not attempted due to Medical conditions or safety concerns Transfers (B, C, W/C) (FIM): 5 Scootin Rollin Supine to/from Sit: 5 Sit to/from Stand: 5 pt. moves slowly and has some discomfort in her back with TRFs at times Gait Training Does the Patient Walk?: Yes Gait Assistive Device: FWW 165x2 FWW SBA, pt. states she feels relief with gait and hopes to get up with nursing when PT is not on duty Exercises Supine Ex: Ankle pumps, Quad Set, Rolling, Glut sets, Heel Slides, Short Arc Quads, Scooting, Hip abd/add Supine Reps: 10 (x2) Assessment Current Status: Good Progress PT Short Term Goals Short Term Goals Time Frame: Sep 30, 2018 Transfers (B,C,W/C) (FIM): 5 Gait (FIM): 5 Gait Distance Comment: 200' Gait Level of Assist: 5 Gait Assistive Device: FWW PT Fpc Goals Candy Forming Machine Operator Goals PT Candy Forming Machine Operator Goals Time Frame: October 14, 2018 Transfers (B,C,W/C) (FIM): 6 Sit to Lying (QC): 6 Lying-Sitting on Side/Bed(QC): 6 Sit to Stand (QC): 6 Rollin Roll Left to Right (QC): 6 Chair/Mlw-rn-Hoiqs Xfer(QC): 6 Car Transfer (QC): 6 Gait (FIM): 6 Distance: 300' Walk 10 feet (QC): 6 Walk 10ft-Uneven Surface(QC): 6 Walk 50ft with 2 Turns (QC): 6 Walk 150 ft (QC): 6 Gait Level of Assist: 6 Gait Assistive Device: FWW Stairs (FIM): 2 # of Steps: 4 1 Step (curb) (QC): 4 4 Steps (QC): 4 Stairs Level Of Assist: 5 PT Plan Treatment/Plan Treatment Plan: Continue Plan of Care Treatment Plan: Bed Mobility, Education, Functional Activity Sri, Functional Strength, Group Therapy, Gait, Safety, Therapeutic Exercise, Transfers Treatment Duration: October 14, 2018 Frequency: At least 5 of 7 days/Wk (IRF) Estimated Hrs Per Day: 1.5 hours per day Patient and/or Family Agrees t: Yes Safety Risks/Education Patient Education: Gait Training, Transfer Techniques, Correct Positioning, Disease Process Teaching Recipient: Patient Teaching Methods: Demonstration, Discussion Response to Teaching: Verbalize Understanding, Return Demonstration, Reinforcement Needed Time/GCodes Time In: 1245 Time Out: 1315 Total Billed Treatment Time: 30 Total Billed Treatment 1,EX20m,GT10m G Codes Necessary: DHARA Martinez FLEET COORDINATOR Sep 24, 2018 13:14
--- NOTE | 2018-09-24 13:19 | Occupational Ther Daily Note ---
OT Current Status-Daily Note Subjective pt sitting in recliner chair upon OT Arrival. pt agreed to OT TX session with focus on increasing independence with ADLS/ use of AE. pt complains of 8/10 back pain prior to OT. NSG administered pain medication. post OT session pt complains of 3/10 back pain. Mental Status/Objective Patient Orientation: Normal For Age Therapy Code Descriptions/Definitions Functional [place] Measure: 0=Not Assessed/NA 4=Minimal Assistance 1=Total Assistance 5=Supervision or Setup 2=Maximal Assistance 6=Modified [place] 3=Moderate Assistance 7=Complete [place] aspen back brace ADL-Treatment Therapy Code Descriptions/Definitions Functional [place] Measure: 0=Not Assessed/NA 4=Minimal Assistance 1=Total Assistance 5=Supervision or Setup 2=Maximal Assistance 6=Modified [place] 3=Moderate Assistance 7=Complete [place] Therapy Quality Codes: 6 Independent with activity with or without an assistive device 5 Patient requires set up or clean up by helper. Patient completes activity by themselves 4 Supervision or touching assist (CGA). [place] provide cues , steadying assist 3 The helper provides less than half the effort to complete the activity 2 The helper provides more than half the effort to complete the activity 1 Dependent. The helper does all the effort to complete an activity 7 Patient refused to complete or attempt activity 9 The patient did not perform the activity before the current illness or injury 88 Not attempted due to Medical conditions or safety concerns Eating (FIM): 7 Eating (QC): 6 Grooming (FIM): 5 (Superivion while standing at sink for safet/ balance. pt required VC to not twist back) Oral Hygiene (QC): 4 Bathing (FIM): 5 (close supervision for safety/ balance. pt educaiton on bathing techniques utilzing back precautions. pt demo understanidng correctly requiring MOD VC for safety/ back precautions) Bathing Location: L Arm, R Arm, L Upper Leg, R Upper Leg, L Lower Leg ( including foot), R Lower Leg (including foot), Chest, Abdomen, Buttocks, Perineal Area Shower/Bathe Self (QC): 4 Upper Body (FIM): 5 Upper Body Dressing (QC): 4 Lower Body Dressing (FIM): 5 (use of AE. pt education on proper use of AE to increase overall independence with ADLS. ) Lower Body Dressing (QC): 4 On/Off Footwear (QC): 4 Toileting (FIM): 5 Toileting Hygiene (QC): 4 Transfers (B, C, W/C) (FIM): 4 Toilet/Commode Transfer (FIM): 4 (CGA for safety/ balance using RW) Toilet Transfer (QC): 4 Shower Transfer(FIM): 4 (CGA fro safety. balance use of GB./ RW) Education OT Patient Education: Energy conservation, Modified ADL techniques, Progress toward Goal/Update tx plan, Purpose of tx/functional activities, Reviewed precautions, Rehab process, Safety issues, Transfer techniques, Use of adapted equipment Teaching Recipient: Patient Teaching Methods: Demonstration, Discussion Response to Teaching: Verbalize Understanding, Return Demonstration OT Short Term Goals Short Term Goals Time Frame: Sep 30, 2018 Eating(FIM): 6 Grooming(FIM): 5 Bathing(FIM): 4 Upper Body Dressing(FIM): 5 Lower Body Dressing(FIM): 4 Toileting(FIM): 5 Transfers (B,C,W/C) (FIM): 5 Toilet/Commode Transfer(FIM): 5 Shower Transfer(FIM): 5 Additional Short Term Goals: 1-Demonstrate ADL Tasks, 2-Verbalize Understanding , 3-ImproveStrength/Sri 1=Demonstrate adherence to instructed precautions during ADL tasks. 2=Patient will verbalize/demonstrate understanding of assistive devices/ modifications for ADL. 3=Patient will improve strength/tolerance for activity to enable patient to perform ADL's. OT Retirement Goals Retirement Goals Time Frame: Oct 07, 2018 Eating (FIM): 6 Eating (QC): 6 Groomin Oral Hygiene (QC): 6 Bathing(FIM): 5 Shower/Bathe Self (QC): 5 Upper Body Dressing(FIM): 6 Upper Body Dressing (QC): 6 Lower Body Dressing(FIM): 6 Lower Body Dressing (QC): 6 On/Off Footwear (QC): 6 Toileting(FIM): 6 Toileting Hygiene (QC): 6 Transfers (B,C,W/C) (FIM): 6 Toilet/Commode Transfer(FIM): 6 Toilet/Commode Transfer (QC): 6 Shower Transfer(FIM): 5 Additional Goals: 1-Demonstrate ADL Tasks, 2-Verbalize Understanding, 3- ImproveStrength/Sri 1=Demonstrate adherence to instructed precautions during ADL tasks. 2=Patient will verbalize/demonstrate understanding of assistive devices/ modifications for ADL. 3=Patient will improve strength/tolerance for activity to enable patient to perform ADL's. OT Education/Plan Problem List/Assessment Assessment: Decreased Activ Tolerance, Impaired Funct Balance, Impaired I ADL's , Impaired Self-Care Skills Discharge Recommendations Plan/Recommendations: Continue POC Barriers to Progress increase back pain Target Placement home Treatment Plan/Plan of Care Treatment,Training & Education: Yes Patient would benefit from OT for education, treatment and training to promote independence in ADL's, mobility, safety and/or upper extremity function for ADL' s. Plan of Care: ADL Retraining, Functional Mobility, Group Exercise/Act as Ind, UE Funct Exercise/Act Treatment Duration: Oct 07, 2018 Frequency: At least 5 of 7 days/Wk (IRF) Estimated Hrs Per Day: 1.5 hours per day Agreement: Yes Rehab Potential: Good Time/GCodes Start Time: 10:30 Stop Time: 12:00 Billed Treatment Time ADL 90 minutes, 6 units TARAS HATFIELD OT Sep 24, 2018 13:19
[2018-09-24 17:51] VITALS: BP 118/62
[2018-09-24 17:59] VITALS: BP 137/72
[2018-09-24 18:20] VITALS: BP 137/72
[2018-09-24] MEDS ORDERED: IBUPROFEN TABLET 200 MG TAB PO PRN (19:00)
[2018-09-24] MEDS: traZODone 50 MG (DESYREL) TAB PO SCH (23:04)
[2018-09-25 05:06] VITALS: BP 151/72
[2018-09-25] MEDS: MULTIVIT W/MINERALS TAB (THERAGRAN M) PO SCH (06:26)
[2018-09-25] MEDS: LEVOTHYROXINE 125 MCG (LEVOTHROID) TABLET PO SCH (06:26)
[2018-09-25] MEDS: KCL 10 MEQ TAB (MICRO K) PO SCH (06:26)
[2018-09-25] MEDS: HYDROcodone/APAP 10 MG/325 MG (LORTAB) TAB PO PRN ×3 (06:32→19:59)
--- NOTE | 2018-09-25 07:46 | Occupational Ther Daily Note ---
OT Current Status-Daily Note Subjective Pt alert, lying in bed. Very talkative. Pt c/o pain with movement, no pain otherwise. Nrsg notified, pain meds had been given less than an hour before. Mental Status/Objective Patient Orientation: Person, Place, Time, Situation Therapy Code Descriptions/Definitions Functional [place] Measure: 0=Not Assessed/NA 4=Minimal Assistance 1=Total Assistance 5=Supervision or Setup 2=Maximal Assistance 6=Modified [place] 3=Moderate Assistance 7=Complete [place] ADL-Treatment Therapy Code Descriptions/Definitions Functional [place] Measure: 0=Not Assessed/NA 4=Minimal Assistance 1=Total Assistance 5=Supervision or Setup 2=Maximal Assistance 6=Modified [place] 3=Moderate Assistance 7=Complete [place] Therapy Quality Codes: 6 Independent with activity with or without an assistive device 5 Patient requires set up or clean up by helper. Patient completes activity by themselves 4 Supervision or touching assist (CGA). [place] provide cues , steadying assist 3 The helper provides less than half the effort to complete the activity 2 The helper provides more than half the effort to complete the activity 1 Dependent. The helper does all the effort to complete an activity 7 Patient refused to complete or attempt activity 9 The patient did not perform the activity before the current illness or injury 88 Not attempted due to Medical conditions or safety concerns Eating (FIM): 7 (Pt able to set self up and use regular utensils.) Eating (QC): 6 Grooming (FIM): 6 (Using FWW standing at sink, pt able to complete by self.) Oral Hygiene (QC): 6 Bathing (FIM): 6 (Using grabbar, shower bench, hand held shower and long handle sponge pt able to complete by self.) Bathing Location: L Arm, R Arm, L Upper Leg, R Upper Leg, L Lower Leg ( including foot), R Lower Leg (including foot), Chest, Abdomen, Buttocks, Perineal Area Shower/Bathe Self (QC): 6 Upper Body (FIM): 5 (After set up, pt able to complete by self.) Upper Body Dressing (QC): 5 Lower Body Dressing (FIM): 5 (After set up, pt able to complete by self using AE to adhere to back precautions.) Lower Body Dressing (QC): 5 On/Off Footwear (QC): 5 Toileting (FIM): 6 (Using BSC, FWW and grabbars pt able to complet by self.) Toileting Hygiene (QC): 6 Transfers (B, C, W/C) (FIM): 6 (Using FWW, pt able to complete.) Toilet/Commode Transfer (FIM): 6 (Using BSC, grabbars and FWW pt able to complete.) Toilet Transfer (QC): 6 Shower Transfer(FIM): 6 (Using grabbars, FWW and shower bench pt able to complete.) Pt able to don/doff back brace. Pt not initiating placement of items to adhere to back precautions prior to completing task. Pt takes increased time to complete tasks due to decreased focus on task and wanting to converse with persons that come into room. Pt wants to be up ad naye in room prior to discharge. After therapy, pt sitting in recliner with call light/phone in reach. All needs met in room. OT Short Term Goals Short Term Goals Time Frame: Sep 30, 2018 Eating(FIM): 6 Grooming(FIM): 5 Bathing(FIM): 4 Upper Body Dressing(FIM): 5 Lower Body Dressing(FIM): 4 Toileting(FIM): 5 Transfers (B,C,W/C) (FIM): 5 Toilet/Commode Transfer(FIM): 5 Shower Transfer(FIM): 5 Additional Short Term Goals: 1-Demonstrate ADL Tasks, 2-Verbalize Understanding , 3-ImproveStrength/Sri 1=Demonstrate adherence to instructed precautions during ADL tasks. 2=Patient will verbalize/demonstrate understanding of assistive devices/ modifications for ADL. 3=Patient will improve strength/tolerance for activity to enable patient to perform ADL's. OT Underbaster Goals Underbaster Goals Time Frame: Oct 07, 2018 Eating (FIM): 6 Eating (QC): 6 Groomin Oral Hygiene (QC): 6 Bathing(FIM): 5 Shower/Bathe Self (QC): 5 Upper Body Dressing(FIM): 6 Upper Body Dressing (QC): 6 Lower Body Dressing(FIM): 6 Lower Body Dressing (QC): 6 On/Off Footwear (QC): 6 Toileting(FIM): 6 Toileting Hygiene (QC): 6 Transfers (B,C,W/C) (FIM): 6 Toilet/Commode Transfer(FIM): 6 Toilet/Commode Transfer (QC): 6 Shower Transfer(FIM): 5 Additional Goals: 1-Demonstrate ADL Tasks, 2-Verbalize Understanding, 3- ImproveStrength/Sri 1=Demonstrate adherence to instructed precautions during ADL tasks. 2=Patient will verbalize/demonstrate understanding of assistive devices/ modifications for ADL. 3=Patient will improve strength/tolerance for activity to enable patient to perform ADL's. OT Education/Plan Problem List/Assessment Assessment: Impaired Self-Care Skills Discharge Recommendations Plan/Recommendations: Continue POC Therapy D/C Recommendations: Home Independently Treatment Plan/Plan of Care Patient would benefit from OT for education, treatment and training to promote independence in ADL's, mobility, safety and/or upper extremity function for ADL' s. Plan of Care: ADL Retraining, Functional Mobility, Group Exercise/Act as Ind, UE Funct Exercise/Act Treatment Duration: Oct 07, 2018 Frequency: At least 5 of 7 days/Wk (IRF) Estimated Hrs Per Day: 1.5 hours per day Agreement: Yes Rehab Potential: Good Time/GCodes Start Time: 07:00 Stop Time: 08:30 Total Time Billed (hr/min): 90 Billed Treatment Time 1 visit-ADL 6 (90 min) KRYSTIAN RILEY Sep 25, 2018 07:46
[2018-09-25] MEDS: GABAPENTIN 300 MG (NEURONTIN) CAP PO SCH ×3 (08:27→19:58)
[2018-09-25] MEDS: FLUTICASONE NASAL SPRAY (FLONASE) 16 GM BTL NS SCH ×2 (08:27→20:04)
[2018-09-25] MEDS: MAGNESIUM OXIDE (MAG-OX)400 MG TAB PO SCH (08:27)
[2018-09-25] MEDS: PANTOPRAZOLE 40 MG (PROTONIX) TAB PO SCH ×2 (08:27→19:58)
[2018-09-25] MEDS: amLODIPine 5 MG (NORVASC) TAB PO SCH (08:27)
[2018-09-25] MEDS: CARVEDILOL 6.25 MG (COREG) TAB PO SCH ×2 (08:27→19:58)
[2018-09-25] MEDS: LORATADINE (CLARITIN) 10 MG TAB PO SCH (08:27)
[2018-09-25] MEDS: BACLOFEN 10 MG (LIORESAL) TAB PO SCH ×3 (08:27→19:58)
[2018-09-25] MEDS: LOSARTAN 100 MG (COZAAR) TABLET PO SCH (08:27)
[2018-09-25] MEDS: POLYETHYLENE GLYCOL 17 GM (MIRALAX) PACK PO SCH (08:31)
[2018-09-25 08:32] VITALS: BP 132/84
--- NOTE | 2018-09-25 10:48 | Physical Therapy Daily Note ---
PT Daily Note-Current Subjective Pt sitting in recliner upon arrival. Pt agrees to PT. Pt very talkative. Pain Numeric Pain Scale: 3 Location: Left Location Body Site: Hip Pain Description: Ache Mental Status Patient Orientation: Person, Place, Time, Situation Attachments: Other-See Comments (Back Brace) Transfers Therapy Code Descriptions/Definitions Functional [place] Measure: 0=Not Assessed/NA 4=Minimal Assistance 1=Total Assistance 5=Supervision or Setup 2=Maximal Assistance 6=Modified [place] 3=Moderate Assistance 7=Complete [place] Therapy Quality Codes: 6 Independent with activity with or without an assistive device 5 Patient requires set up or clean up by helper. Patient completes activity by themselves 4 Supervision or touching assist (CGA). [place] provide cues , steadying assist 3 The helper provides less than half the effort to complete the activity 2 The helper provides more than half the effort to complete the activity 1 Dependent. The helper does all the effort to complete an activity 7 Patient refused to complete or attempt activity 9 The patient did not perform the activity before the current illness or injury 88 Not attempted due to Medical conditions or safety concerns Scootin Sit to/from Stand: 6 Sit to Stand (QC): 6 Weight Bearing Weight Bearing/Tolerated Weight Bearing/Tolerated Gait Training Does the Patient Walk?: Yes Distance (FIM): 3=150 ft Distance: 250' Walk 10 feet (QC): 6 Walk 50 ft with 2 Turns(QC): 6 Walk 150 ft (QC): 6 Gait Level of Assist: 6 Gait Persons Needed: 1 Gait Assistive Device: FWW Wheelchair Training Does the Pt Use a Wheelchair?: No Exercises Seated Therapy Exercises: Ankle pumps, Long arc quads, Hip flexion, Kicking activity, Hip abd/add Seated Reps: 15 Standing: Hip Abduction, Heel/toe raises, Marching, Mini squats Standing Reps: 15 NuStep Minutes: 17 NuStep Workload: 3 Treatments Pt transfers from recliner and wants to see the Independent Living Room that she will be moving to tomorrow. MEDICATION SPECIALIST instructs on proper use of tub transfer bench, pt reports only using shower when returning home. Pt ambulates in hallway then uses NuStep for 17m at WL 3. Pt takes short rest before completing Seated Ex including Ex w/Theraband. Pt completes Standing Ex at // bars. Pt returns to room at end of tx to visit with company and rest. Assessment Pt is improving with strength, transfers & mobility with each tx session. Pt is excited to become more independent before D/C home. PT Short Term Goals Short Term Goals Time Frame: Sep 30, 2018 Transfers (B,C,W/C) (FIM): 5 Gait (FIM): 5 Gait Distance Comment: 200' Gait Level of Assist: 5 Gait Assistive Device: FWW PT Water Control Supervisor Goals Detention Goals PT Water Control Supervisor Goals Time Frame: October 14, 2018 Transfers (B,C,W/C) (FIM): 6 Sit to Lying (QC): 6 Lying-Sitting on Side/Bed(QC): 6 Sit to Stand (QC): 6 Rollin Roll Left to Right (QC): 6 Chair/Uer-sw-Ahaqi Xfer(QC): 6 Car Transfer (QC): 6 Gait (FIM): 6 Distance: 300' Walk 10 feet (QC): 6 Walk 10ft-Uneven Surface(QC): 6 Walk 50ft with 2 Turns (QC): 6 Walk 150 ft (QC): 6 Gait Level of Assist: 6 Gait Assistive Device: FWW Stairs (FIM): 2 # of Steps: 4 1 Step (curb) (QC): 4 4 Steps (QC): 4 Stairs Level Of Assist: 5 PT Plan Problem List Problem List: Activity Tolerance Treatment/Plan Treatment Plan: Continue Plan of Care Treatment Plan: Bed Mobility, Education, Functional Activity Sri, Functional Strength, Group Therapy, Gait, Safety, Therapeutic Exercise, Transfers Treatment Duration: October 14, 2018 Frequency: At least 5 of 7 days/Wk (IRF) Estimated Hrs Per Day: 1.5 hours per day Patient and/or Family Agrees t: Yes Safety Risks/Education Patient Education: Gait Training, Transfer Techniques, Correct Positioning, Safety Issues Teaching Recipient: Patient Teaching Methods: Discussion Response to Teaching: Verbalize Understanding Time/GCodes Time In: 845 Time Out: 1015 Total Billed Treatment Time: 90 Total Billed Treatment 1, GT (20m), FA x2 (25m) & EX x3 (45m) G Codes Necessary: TATA Ochoa MEDICATION SPECIALIST Sep 25, 2018 10:48
--- NOTE | 2018-09-25 12:40 | PM&R Progress Note ---
Subjective HPI/CC On Admission Date Seen by Provider: Sep 25, 2018 Time Seen by Provider: 12:20 CC: Debility following lumbar spine surgery HPI: This is a 68yoWF clinic patient of Dr Hardy who was DC from [facility] in [place] after extensive lumbar spine surgery which included cyst removal with dural tear who is in need of rehab prior to going home to live alone. Patient required supine position for 24 hours after surgery and has since done very well. Anemia post op was noted but no indication for transfusion. Post op constipation will need resolved and she will need PT/OT to overcome barriers of inability to ambulate in a safe manner and perform independent ADL's in order to recover and return home to prior functioning level of independent status. I have restarted all home meds and restarted Lortab 10 which she was receiving at [facility]. Subjective/Events-last exam Patient doing much better and participating with therapies Had a bowel movement day before and now taking meds prn Numb around her rectal region has improved a bit Voiding well without retention or incontinence Pain is well-controlled on Lortab 10/325 no changes required Eating and drinking well Reviewed therapy notes Fever persists and she states this happened last night after her last surgery Moving to independent room tomorrow Review of Systems General: Fatigue Musculoskeletal: back pain Objective Exam Vital Signs Vital Signs Date Time Temp Pulse Resp B/P (MAP) Pulse Ox O2 Delivery O2 Flow Rate FiO2 09/26/18 08:05 98.2 84 18 131/64 (86) 96 Room Air Capillary Refill : Less Than 3 Seconds General Appearance: No Apparent Distress, WD/WN, Chronically ill HEENT: PERRL/EOMI, Normal ENT Inspection, Pharynx Normal, Moist Mucous Membranes Neck: Full Range of Motion, Normal Inspection, Non Tender, Supple Respiratory: Chest Non Tender, Lungs Clear, Normal Breath Sounds, No Accessory Muscle Use, No Respiratory Distress Cardiovascular: Regular Rate, Rhythm, No Edema, No Gallop, No JVD, No Murmur Gastrointestinal: Normal Bowel Sounds, No Organomegaly, No Pulsatile Mass, Non Tender, Soft Back: Decreased Range of Motion, Other (wearing brace) Extremity: Normal Capillary Refill, Normal Inspection, Normal Range of Motion, Non Tender, No Calf Tenderness, No Pedal Edema Neurologic/Psychiatric: Alert, Oriented x3, Normal Mood/Affect, Motor Weakness (4/5 strength bilateral LE) Skin: Normal Color, Warm/Dry Lymphatic: No Adenopathy Results/Procedures Lab Patient resulted labs reviewed. Assessment/Plan Assessment and Plan Assess & Plan/Chief Complaint Assessment: (1) Lumbar stenosis POD # [address] Clements at [facility] (2) Hypertension (3) Hyperlipidemia (4) KORTNEY on CPAP (5) GERD (gastroesophageal reflux disease) (6) IBS (irritable bowel syndrome) (7) Constipation-resolved 09/23/18 (8) Anxiety (9) Acute blood loss as cause of postoperative anemia (10) Esophageal reflux disease (11) Hypothyroidism (12) Fevre Plan: Debility resolution before going home Continue close BP monitoring Monitor fever only to appearance of infection (1) Lumbar stenosis (2) Hypertension (3) Hyperlipidemia (4) KORTNEY on CPAP (5) GERD (gastroesophageal reflux disease) (6) IBS (irritable bowel syndrome) (7) Constipation (8) Anxiety (9) Acute blood loss as cause of postoperative anemia (10) Esophageal reflux disease (11) Hypothyroidism (12) Fever Clinical Quality Measures DVT/VTE Risk/Contraindication: Risk Factor Score Per Nursin RFS Level Per Nursing on Admit: 4+=Very High DANIELA BHARDWAJ DO Sep 25, 2018 12:40
--- NOTE | 2018-09-25 12:40 | NUR ---
Dr. Mcneil here to see patient. Informed of fever last night. Reviewed vitals.
--- NOTE | 2018-09-25 14:48 | NUR ---
Walked in halls with SBA using a FWW and gait belt for safety. Tolerated well.
[2018-09-25 16:32] VITALS: BP 124/74
[2018-09-25] MEDS: traZODone 50 MG (DESYREL) TAB PO SCH (19:58)
[2018-09-26] MEDS: MULTIVIT W/MINERALS TAB (THERAGRAN M) PO SCH (06:17)
[2018-09-26] MEDS: LEVOTHYROXINE 125 MCG (LEVOTHROID) TABLET PO SCH (06:17)
[2018-09-26] MEDS: HYDROcodone/APAP 10 MG/325 MG (LORTAB) TAB PO PRN ×3 (06:17→21:54)
[2018-09-26] MEDS: PANTOPRAZOLE 40 MG (PROTONIX) TAB PO SCH ×3 (06:17→21:54)
[2018-09-26] MEDS: KCL 10 MEQ TAB (MICRO K) PO SCH (06:21)
[2018-09-26 06:26] VITALS: BP 147/82
[2018-09-26 08:05] VITALS: BP 131/64
[2018-09-26] MEDS: POLYETHYLENE GLYCOL 17 GM (MIRALAX) PACK PO SCH (08:07)
[2018-09-26] MEDS: amLODIPine 5 MG (NORVASC) TAB PO SCH (08:07)
[2018-09-26] MEDS: GABAPENTIN 300 MG (NEURONTIN) CAP PO SCH ×3 (08:07→21:54)
[2018-09-26] MEDS: LOSARTAN 100 MG (COZAAR) TABLET PO SCH (08:07)
[2018-09-26] MEDS: CARVEDILOL 6.25 MG (COREG) TAB PO SCH ×2 (08:07→21:53)
[2018-09-26] MEDS: MAGNESIUM OXIDE (MAG-OX)400 MG TAB PO SCH (08:07)
[2018-09-26] MEDS: LORATADINE (CLARITIN) 10 MG TAB PO SCH (08:07)
[2018-09-26] MEDS: FLUTICASONE NASAL SPRAY (FLONASE) 16 GM BTL NS SCH ×2 (08:08→21:53)
[2018-09-26] MEDS: BACLOFEN 10 MG (LIORESAL) TAB PO SCH (09:41)
--- NOTE | 2018-09-26 09:41 | NUR ---
Pharmacy states Baclofen is out of stock. Not sure when they will get more in.
--- NOTE | 2018-09-26 11:41 | PM&R Progress Note ---
Subjective HPI/CC On Admission Date Seen by Provider: Sep 26, 2018 Time Seen by Provider: 12:15 CC: Debility following lumbar spine surgery HPI: This is a 68yoWF clinic patient of Dr Hardy who was DC from [facility] in [place] after extensive lumbar spine surgery which included cyst removal with dural tear who is in need of rehab prior to going home to live alone. Patient required supine position for 24 hours after surgery and has since done very well. Anemia post op was noted but no indication for transfusion. Post op constipation will need resolved and she will need PT/OT to overcome barriers of inability to ambulate in a safe manner and perform independent ADL's in order to recover and return home to prior functioning level of independent status. I have restarted all home meds and restarted Lortab 10 which she was receiving at [facility]. Subjective/Events-last exam Patient doing much better and participating with therapies yesterday and moved to the independent room today Had a bowel movement and now regular Numb around her rectal region has improved a bit and doesn't even mention that today Voiding well without retention or incontinence Pain is well-controlled on Lortab 10/325 no changes required Eating and drinking well Reviewed therapy notes Fever resolved as of now Review of Systems General: Fatigue Musculoskeletal: back pain Objective Exam Vital Signs Vital Signs Date Time Temp Pulse Resp B/P (MAP) Pulse Ox O2 Delivery O2 Flow Rate FiO2 09/26/18 16:58 98.8 70 18 103/63 (76) 96 Room Air Capillary Refill : Less Than 3 Seconds General Appearance: No Apparent Distress, WD/WN, Chronically ill HEENT: PERRL/EOMI, Normal ENT Inspection, Pharynx Normal, Moist Mucous Membranes Neck: Full Range of Motion, Normal Inspection, Non Tender, Supple Respiratory: Chest Non Tender, Lungs Clear, Normal Breath Sounds, No Accessory Muscle Use, No Respiratory Distress Cardiovascular: Regular Rate, Rhythm, No Edema, No Gallop, No JVD, No Murmur Gastrointestinal: Normal Bowel Sounds, No Organomegaly, No Pulsatile Mass, Non Tender, Soft Back: Decreased Range of Motion, Other (wearing brace) Extremity: Normal Capillary Refill, Normal Inspection, Normal Range of Motion, Non Tender, No Calf Tenderness, No Pedal Edema Neurologic/Psychiatric: Alert, Oriented x3, Normal Mood/Affect, Motor Weakness (4/5 strength bilateral LE) Skin: Normal Color, Warm/Dry Lymphatic: No Adenopathy Results/Procedures Lab Patient resulted labs reviewed. Assessment/Plan Assessment and Plan Assess & Plan/Chief Complaint Assessment: (1) Lumbar stenosis POD # [address] Clements at [facility] (2) Hypertension (3) Hyperlipidemia (4) KORTNEY on CPAP (5) GERD (gastroesophageal reflux disease) (6) IBS (irritable bowel syndrome) (7) Constipation-resolved 09/23/18 (8) Anxiety (9) Acute blood loss as cause of postoperative anemia (10) Esophageal reflux disease (11) Hypothyroidism (12) Fever Plan: Debility resolution before going home Continue close BP monitoring Monitor for fever recurrence (1) Lumbar stenosis (2) Hypertension (3) Hyperlipidemia (4) KORTNEY on CPAP (5) GERD (gastroesophageal reflux disease) (6) IBS (irritable bowel syndrome) (7) Constipation (8) Anxiety (9) Acute blood loss as cause of postoperative anemia (10) Esophageal reflux disease (11) Hypothyroidism (12) Fever Clinical Quality Measures DVT/VTE Risk/Contraindication: Risk Factor Score Per Nursin RFS Level Per Nursing on Admit: 4+=Very High DANIELA BHARDWAJ DO Sep 26, 2018 11:41
--- NOTE | 2018-09-26 13:10 | NUR ---
Dr. Mcneil to floor. Informed of Baclofen shortage and not in stock. Orders to change to Zanaflex-4MG PO TID until Baclofen back in stock, then switch back to Baclofen.
[2018-09-26 15:37] VITALS: BP 100/50
[2018-09-26 16:58] VITALS: BP 103/63
[2018-09-26] MEDS: traZODone 50 MG (DESYREL) TAB PO SCH (21:54)
[2018-09-27 05:13] VITALS: BP 107/63
[2018-09-27] MEDS: HYDROcodone/APAP 10 MG/325 MG (LORTAB) TAB PO PRN ×3 (06:30→21:02)
[2018-09-27] MEDS: LEVOTHYROXINE 125 MCG (LEVOTHROID) TABLET PO SCH (06:30)
[2018-09-27] MEDS: KCL 10 MEQ TAB (MICRO K) PO SCH (06:30)
[2018-09-27] MEDS: MULTIVIT W/MINERALS TAB (THERAGRAN M) PO SCH (06:30)
--- NOTE | 2018-09-27 07:28 | Occupational Ther Daily Note ---
OT Current Status-Daily Note Subjective Pt alert, sitting in recliner. Pt agrees to therapy. No c/o pain. Mental Status/Objective Patient Orientation: Person, Place, Time, Situation Therapy Code Descriptions/Definitions Functional [place] Measure: 0=Not Assessed/NA 4=Minimal Assistance 1=Total Assistance 5=Supervision or Setup 2=Maximal Assistance 6=Modified [place] 3=Moderate Assistance 7=Complete [place] ADL-Treatment Pt agrees to therapy. After therapy, pt sitting in recliner with call light/ phone in reach. All needs met in room. Therapy Code Descriptions/Definitions Functional [place] Measure: 0=Not Assessed/NA 4=Minimal Assistance 1=Total Assistance 5=Supervision or Setup 2=Maximal Assistance 6=Modified [place] 3=Moderate Assistance 7=Complete [place] Therapy Quality Codes: 6 Independent with activity with or without an assistive device 5 Patient requires set up or clean up by helper. Patient completes activity by themselves 4 Supervision or touching assist (CGA). [place] provide cues , steadying assist 3 The helper provides less than half the effort to complete the activity 2 The helper provides more than half the effort to complete the activity 1 Dependent. The helper does all the effort to complete an activity 7 Patient refused to complete or attempt activity 9 The patient did not perform the activity before the current illness or injury 88 Not attempted due to Medical conditions or safety concerns Eating (FIM): 7 (Pt able to set self up and use regular utensils to feed self.) Eating (QC): 6 Grooming (FIM): 7 (Using sink for support, pt able to complete by self.) Oral Hygiene (QC): 6 Bathing (FIM): 6 (Using tub transfer bench, grabbar and hand held shower pt able to complete by self.) Bathing Location: L Arm, R Arm, L Upper Leg, R Upper Leg, L Lower Leg ( including foot), R Lower Leg (including foot), Chest, Abdomen, Buttocks, Perineal Area Shower/Bathe Self (QC): 6 Upper Body (FIM): 6 (Using FWW to retrieve clothing pt able to complete by self.) Upper Body Dressing (QC): 6 Lower Body Dressing (FIM): 6 (Using FWW to retrieve clothing and AE to adhere to back precautions pt able to complete by self.) Lower Body Dressing (QC): 6 On/Off Footwear (QC): 6 Toileting (FIM): 6 (Using grabbars and FWW, pt able to complete by self.) Toileting Hygiene (QC): 6 Transfers (B, C, W/C) (FIM): 6 (Using FWW) Toilet/Commode Transfer (FIM): 6 (Using FWW and grabbars, pt able to complete by self.) Toilet Transfer (QC): 6 Tub Transfer(FIM): 6 (Using tub bench, pt able to complete by self.) Shower Transfer(FIM): 6 (Pt has demonstrated ability to complete from previous OT sessiong to complete using AE by self.) OT Short Term Goals Short Term Goals Time Frame: Sep 30, 2018 Eating(FIM): 6 Grooming(FIM): 5 Bathing(FIM): 4 Upper Body Dressing(FIM): 5 Lower Body Dressing(FIM): 4 Toileting(FIM): 5 Transfers (B,C,W/C) (FIM): 5 Toilet/Commode Transfer(FIM): 5 Shower Transfer(FIM): 5 Additional Short Term Goals: 1-Demonstrate ADL Tasks, 2-Verbalize Understanding , 3-ImproveStrength/Sri 1=Demonstrate adherence to instructed precautions during ADL tasks. 2=Patient will verbalize/demonstrate understanding of assistive devices/ modifications for ADL. 3=Patient will improve strength/tolerance for activity to enable patient to perform ADL's. OT Operations And Maintenance Specialist Goals Senior Living Goals Time Frame: Oct 07, 2018 Eating (FIM): 6 (met-09/27/18) Eating (QC): 6 (met-09/27/18) Groomin (met-09/27/18) Oral Hygiene (QC): 6 (met-09/27/18) Bathing(FIM): 5 (met-09/27/18) Shower/Bathe Self (QC): 5 (met-09/27/18) Upper Body Dressing(FIM): 6 (met-09/27/18) Upper Body Dressing (QC): 6 (met-09/27/18) Lower Body Dressing(FIM): 6 (met-09/27/18) Lower Body Dressing (QC): 6 (met-09/27/18) On/Off Footwear (QC): 6 (met-09/27/18) Toileting(FIM): 6 (met-09/27/18) Toileting Hygiene (QC): 6 (met-09/27/18) Transfers (B,C,W/C) (FIM): 6 (met-09/27/18) Toilet/Commode Transfer(FIM): 6 (met-09/27/18) Toilet/Commode Transfer (QC): 6 (met-09/27/18) Shower Transfer(FIM): 5 (met-09/27/18) Additional Goals: 1-Demonstrate ADL Tasks, 2-Verbalize Understanding, 3- ImproveStrength/Sri 1=Demonstrate adherence to instructed precautions during ADL tasks. 2=Patient will verbalize/demonstrate understanding of assistive devices/ modifications for ADL. 3=Patient will improve strength/tolerance for activity to enable patient to perform ADL's. OT Education/Plan Discharge Recommendations Plan/Recommendations: Continue POC Therapy D/C Recommendations: Home Independently Treatment Plan/Plan of Care Patient would benefit from OT for education, treatment and training to promote independence in ADL's, mobility, safety and/or upper extremity function for ADL' s. Plan of Care: ADL Retraining, Functional Mobility, Group Exercise/Act as Ind, UE Funct Exercise/Act Treatment Duration: Oct 07, 2018 Frequency: At least 5 of 7 days/Wk (IRF) Estimated Hrs Per Day: 1.5 hours per day Agreement: Yes Rehab Potential: Good Time/GCodes Start Time: 07:00 Stop Time: 08:00 Total Time Billed (hr/min): 60 Billed Treatment Time 1 visit-ADL 4 (60 min) KRYSTIAN RILEY Sep 27, 2018 07:28
[2018-09-27] MEDS: POLYETHYLENE GLYCOL 17 GM (MIRALAX) PACK PO SCH (08:46)
[2018-09-27] MEDS: MAGNESIUM OXIDE (MAG-OX)400 MG TAB PO SCH (08:46)
[2018-09-27] MEDS: PANTOPRAZOLE 40 MG (PROTONIX) TAB PO SCH ×2 (08:46→21:02)
[2018-09-27] MEDS: amLODIPine 5 MG (NORVASC) TAB PO SCH (08:47)
[2018-09-27] MEDS: LORATADINE (CLARITIN) 10 MG TAB PO SCH (08:47)
[2018-09-27] MEDS: CARVEDILOL 6.25 MG (COREG) TAB PO SCH ×2 (08:47→21:02)
[2018-09-27] MEDS: GABAPENTIN 300 MG (NEURONTIN) CAP PO SCH ×3 (08:47→21:02)
[2018-09-27] MEDS: LOSARTAN 100 MG (COZAAR) TABLET PO SCH (08:47)
--- NOTE | 2018-09-27 08:47 | PM&R Progress Note ---
Subjective HPI/CC On Admission Date Seen by Provider: Sep 27, 2018 Time Seen by Provider: 08:30 CC: Debility following lumbar spine surgery HPI: This is a 68yoWF clinic patient of Dr Hardy who was DC from [facility] in [place] after extensive lumbar spine surgery which included cyst removal with dural tear who is in need of rehab prior to going home to live alone. Patient required supine position for 24 hours after surgery and has since done very well. Anemia post op was noted but no indication for transfusion. Post op constipation will need resolved and she will need PT/OT to overcome barriers of inability to ambulate in a safe manner and perform independent ADL's in order to recover and return home to prior functioning level of independent status. I have restarted all home meds and restarted Lortab 10 which she was receiving at [facility]. Subjective/Events-last exam Pt no longer having a fever Back pain is much controlled Nonspecific numbness periodically and she feels that those are the nerves that are healing Denies any pain currently Bowels are moving regularly Vitals remain stable Up ad naye now so DC planned for tomorrow Review of Systems Musculoskeletal: back pain Objective Exam Vital Signs Vital Signs Date Time Temp Pulse Resp B/P (MAP) Pulse Ox O2 Delivery O2 Flow Rate FiO2 09/27/18 09:00 Room Air 09/27/18 05:13 98.4 80 20 107/63 (78) 95 Capillary Refill : Less Than 3 Seconds General Appearance: No Apparent Distress, WD/WN, Chronically ill HEENT: PERRL/EOMI, Normal ENT Inspection, Pharynx Normal, Moist Mucous Membranes Neck: Full Range of Motion, Normal Inspection, Non Tender, Supple Respiratory: Chest Non Tender, Lungs Clear, Normal Breath Sounds, No Accessory Muscle Use, No Respiratory Distress Cardiovascular: Regular Rate, Rhythm, No Edema, No Gallop, No JVD, No Murmur Gastrointestinal: Normal Bowel Sounds, No Organomegaly, No Pulsatile Mass, Non Tender, Soft Back: Decreased Range of Motion, Other Extremity: Normal Capillary Refill, Normal Inspection, Normal Range of Motion, Non Tender, No Calf Tenderness, No Pedal Edema Neurologic/Psychiatric: Alert, Oriented x3, Normal Mood/Affect, Motor Weakness Skin: Normal Color, Warm/Dry Lymphatic: No Adenopathy Results/Procedures Lab Patient resulted labs reviewed. Assessment/Plan Assessment and Plan Assess & Plan/Chief Complaint Assessment: (1) Lumbar stenosis POD # [address] Clements at [facility] (2) Hypertension (3) Hyperlipidemia (4) KORTNEY on CPAP (5) GERD (gastroesophageal reflux disease) (6) IBS (irritable bowel syndrome) (7) Constipation-resolved 09/23/18 (8) Anxiety (9) Acute blood loss as cause of postoperative anemia (10) Esophageal reflux disease (11) Hypothyroidism (12) Fever-resolved Plan: Debility resolution before going home Continue close BP monitoring DC tomorrow home (1) Lumbar stenosis (2) Hypertension (3) Hyperlipidemia (4) KORTNEY on CPAP (5) GERD (gastroesophageal reflux disease) (6) IBS (irritable bowel syndrome) (7) Constipation (8) Anxiety (9) Acute blood loss as cause of postoperative anemia (10) Esophageal reflux disease (11) Hypothyroidism (12) Fever Clinical Quality Measures DVT/VTE Risk/Contraindication: Risk Factor Score Per Nursin RFS Level Per Nursing on Admit: 4+=Very High DANIELA BHARDWAJ DO Sep 27, 2018 08:46
[2018-09-27] MEDS: FLUTICASONE NASAL SPRAY (FLONASE) 16 GM BTL NS SCH ×2 (08:48→21:02)
--- NOTE | 2018-09-27 10:01 | Physical Therapy Daily Note ---
PT Daily Note-Current Subjective Pt. agrees to Rx. States she is doing well and hopes to be up ad naye soon. Pain Location: No Pain Reported Mental Status Patient Orientation: Normal For Age Attachments: Other-See Comments (kurt hart) Transfers Therapy Code Descriptions/Definitions Functional [place] Measure: 0=Not Assessed/NA 4=Minimal Assistance 1=Total Assistance 5=Supervision or Setup 2=Maximal Assistance 6=Modified [place] 3=Moderate Assistance 7=Complete [place] Therapy Quality Codes: 6 Independent with activity with or without an assistive device 5 Patient requires set up or clean up by helper. Patient completes activity by themselves 4 Supervision or touching assist (CGA). [place] provide cues , steadying assist 3 The helper provides less than half the effort to complete the activity 2 The helper provides more than half the effort to complete the activity 1 Dependent. The helper does all the effort to complete an activity 7 Patient refused to complete or attempt activity 9 The patient did not perform the activity before the current illness or injury 88 Not attempted due to Medical conditions or safety concerns Transfers (B, C, W/C) (FIM): 6 Scootin Rollin Roll Left to Right (QC): 6 Supine to/from Sit: 6 Sit to/from Stand: 6 Sit to Lying (QC): 6 Sit to Stand (QC): 6 Chair/Qek-zy-Gtyct Xfer(QC): 6 Bed to/from Chair: 6 Car Transfer (QC): 6 Weight Bearing Weight Bearing/Tolerated Weight Bearing/Tolerated Gait Training Does the Patient Walk?: Yes Gait (FIM): 6 Distance (FIM): 3=150 ft (200x2) Walk 10 feet (QC): 6 Walk 50 ft with 2 Turns(QC): 6 Walk 150 ft (QC): 6 Walking 10ft/uneven surface-QC: 6 Gait Level of Assist: 6 Gait Persons Needed: 0 Gait Assistive Device: FWW up ad naye status Wheelchair Training Does the Pt Use a Wheelchair?: No Stair Training Stair Training: Handrails/: 2 handrails Stairs (FIM): 2 #of Steps: 4 1 Step (curb) (QC): 4 4 Steps (QC): 4 Stairs: Pattern: Step to Level of Assist: 4 pt. did not think she could ascend descend steps . states she uses the ramp at home but occas goes up down steps while visiting a nephew Balance Special Test Comments contraindicated top have pt. bend over Exercises Supine Ex: Ankle pumps, Quad Set, Rolling, Glut sets, Heel Slides, Short Arc Quads, Scooting, Hip abd/add Supine Reps: 15 Standing: Hip Abduction, Heel/toe raises, Marching, Mini squats Standing Reps: 15 Assessment Current Status: Good Progress advanced to up ad naye status, no LOB noted, PT Short Term Goals Short Term Goals Time Frame: Sep 30, 2018 Transfers (B,C,W/C) (FIM): 5 Gait (FIM): 5 Gait Distance Comment: 200' Gait Level of Assist: 5 Gait Assistive Device: FWW PT Code Number [place] Goals Code Number [place] Goals PT Senior Living Goals Time Frame: October 14, 2018 Transfers (B,C,W/C) (FIM): 6 Sit to Lying (QC): 6 Lying-Sitting on Side/Bed(QC): 6 Sit to Stand (QC): 6 Rollin Roll Left to Right (QC): 6 Chair/Wiw-tm-Pqygb Xfer(QC): 6 Car Transfer (QC): 6 Gait (FIM): 6 Distance: 300' Walk 10 feet (QC): 6 Walk 10ft-Uneven Surface(QC): 6 Walk 50ft with 2 Turns (QC): 6 Walk 150 ft (QC): 6 Gait Level of Assist: 6 Gait Assistive Device: FWW Stairs (FIM): 2 # of Steps: 4 1 Step (curb) (QC): 4 4 Steps (QC): 4 Stairs Level Of Assist: 5 PT Plan Treatment/Plan Treatment Plan: Continue Plan of Care Treatment Plan: Bed Mobility, Education, Functional Activity Sri, Functional Strength, Group Therapy, Gait, Safety, Therapeutic Exercise, Transfers Treatment Duration: October 14, 2018 Frequency: At least 5 of 7 days/Wk (IRF) Estimated Hrs Per Day: 1.5 hours per day Patient and/or Family Agrees t: Yes Safety Risks/Education Patient Education: Gait Training, Transfer Techniques, Steps, Correct Positioning, Disease Process, Safety Issues (stairs) Teaching Recipient: Patient Teaching Methods: Demonstration, Discussion Response to Teaching: Verbalize Understanding, Return Demonstration, Reinforcement Needed Time/GCodes Time In: 900 Time Out: 1000 Total Billed Treatment Time: 60 Total Billed Treatment 1,GT30m,EX15m,FA15m G Codes Necessary: DHARA Martinez CONCRETE PIPE MACHINE OPERATOR Sep 27, 2018 10:01
--- NOTE | 2018-09-27 10:50 | NUR ---
Pastoral care visit.
--- NOTE | 2018-09-27 14:55 | Therapy Group Daily Note ---
Therapy Daily Group Note Patient Education Topic Other List Below (ARU expectations,U&L extremity seated ther ex) Exercises LE Seated Exercise, UE Exercise Session Ratio (pt:therapist): 4:1 Goal of Session: Education on ARU Expectations, UE/LE Strengthing Goal Met for this Session: Yes Pt Benefit of Group: Contributions to Others, Increased Functional Strength, Socialization Other/Notes Pt ambulated to OT/PT group in [facility] area. Group consisted of introductions (name, place living, first job), socialization, ARU expectations/ description, UE/LE seated exercises and memory game. Pt able to introduce self appropriately then actively listened to peers. Pt acknowledged understanding of ARU with verbal contribution . Pt able to complete UE/LE seated exercises without difficulty and was able to lead 2 to 3 exercises. Using light wt ball , pt completed B LE exercise. After therapy, pt lying in bed with call light/ phone in reach. All needs met in room. Start Time: 13:00 Stop Time: 14:10 Total Billed Treatment Time: 70 Total Billed Treatment 1,GRP DHARA QUEEN FINISHING SUPERVISOR Sep 27, 2018 14:55
--- NOTE | 2018-09-27 15:33 | NUR ---
As arranged last week, DUPLICATOR PUNCH SET UP OPERATOR met with PTMerari to discuss patient's progress and discharge plans. Patient was advanced to up ad naye. status today and is performing tasks with modified independence. Team is in agreement with patient discharging tomorrow. Patient is also in agreement with this. Due to home location, only available home health service is [facility]. Patient is agreeable to this provider. DUPLICATOR PUNCH SET UP OPERATOR reached out to [facility] and sent clinical information, they will start care on 417 for RN and PT. Patient has all necessary equipment for home use. DUPLICATOR PUNCH SET UP OPERATOR reviewed patient choice letter and IMM, patient has no concerns regarding discharge plans for tomorrow. She will have her neighbor provide transport home. DUPLICATOR PUNCH SET UP OPERATOR confirmed with [facility] discharge paperwork of follow-up appointment with Dr. Clements on 10/05 at 830 a.m. DUPLICATOR PUNCH SET UP OPERATOR also sent incisional care instructions from [facility] to [facility]. Please see discharge summary for further information.
[2018-09-27 17:25] VITALS: BP 100/59
[2018-09-27] MEDS: traZODone 50 MG (DESYREL) TAB PO SCH (21:02)
[2018-09-28 06:12] VITALS: BP 117/69
[2018-09-28] MEDS: KCL 10 MEQ TAB (MICRO K) PO SCH (06:14)
[2018-09-28] MEDS: MULTIVIT W/MINERALS TAB (THERAGRAN M) PO SCH (06:14)
[2018-09-28] MEDS: LEVOTHYROXINE 125 MCG (LEVOTHROID) TABLET PO SCH (06:14)
[2018-09-28] MEDS: HYDROcodone/APAP 10 MG/325 MG (LORTAB) TAB PO PRN (06:16)
[2018-09-28] MEDS: GABAPENTIN 300 MG (NEURONTIN) CAP PO SCH (08:02)
[2018-09-28] MEDS: amLODIPine 5 MG (NORVASC) TAB PO SCH (08:03)
[2018-09-28] MEDS: LOSARTAN 100 MG (COZAAR) TABLET PO SCH (08:03)
[2018-09-28] MEDS: LORATADINE (CLARITIN) 10 MG TAB PO SCH (08:03)
[2018-09-28] MEDS: MAGNESIUM OXIDE (MAG-OX)400 MG TAB PO SCH (08:03)
[2018-09-28] MEDS: PANTOPRAZOLE 40 MG (PROTONIX) TAB PO SCH (08:03)
[2018-09-28] MEDS: CARVEDILOL 6.25 MG (COREG) TAB PO SCH (08:03)
[2018-09-28] MEDS: FLUTICASONE NASAL SPRAY (FLONASE) 16 GM BTL NS SCH (08:06)
[2018-09-28] MEDS: POLYETHYLENE GLYCOL 17 GM (MIRALAX) PACK PO SCH (08:07)
--- NOTE | 2018-09-28 08:22 | Therapy Team Discharge Summary ---
Therapy Discharge Summary Discharge Recommendations Date of Discharge 09/28/2018 Therapy D/C Recommendations: Home Independently Physical Therapy This patient was seen on ARU post acute hospital stay due to lumbar surgery. Prior to surgery, pt lived alone and was indep with all functional mobility, noting she did not use stairs often. Upon arrival to this unit, she was mod assist with transfers and walked with SBA. Treatment consisted of functional strength and mobility, ther act, ther ex, balance and gait training all to promote mod indep level at discharge. She has made good progress and achieved all goals to a satisfactory level. She is mod indep with transfers and gait and able to go up/down a steps. She is to discharge home with recommended [facility] PT to follow. DC from ARU at this time. Occupational Therapy Impaired Self-Care Skills PT Fpc Goals Piece Hand Goals PT Piece Hand Goals Time Frame: October 14, 2018 Transfers (B,C,W/C) (FIM): 6 (met) Roll Left to Right (QC): 6 (met) Sit to Lying (QC): 6 (metmet) Lying-Sitting on Side/Bed(QC): 6 (met) Sit to Stand (QC): 6 (met) Chair/Gie-sh-Kawdd Xfer(QC): 6 (met) Car Transfer (QC): 6 (met) Gait (FIM): 6 (met) Distance: 300' Walk 10 feet (QC): 6 Walk 10ft-Uneven Surface(QC): 6 Walk 50ft with 2 Turns (QC): 6 Walk 150 ft (QC): 6 Gait Level of Assist: 6 Gait Assistive Device: FWW Stairs (FIM): 2 (met) # of Steps: 4 1 Step (curb) (QC): 4 4 Steps (QC): 4 Stairs Level Of Assist: 5 OT Fpc Goals Piece Hand Goals Time Frame: Oct 07, 2018 Eating (FIM): 6 (met-09/27/18) Eating (QC): 6 (met-09/27/18) Oral Hygiene (QC): 6 (met-09/27/18) Grooming(FIM): 6 (met-09/27/18) Bathing(FIM): 5 (met-09/27/18) Shower/Bathe Self (QC): 5 (met-09/27/18) Upper Body Dressing(FIM): 6 (met-09/27/18) Upper Body Dressing (QC): 6 ([facility]-09/27/18) Lower Body Dressing(FIM): 6 ([facility]-09/27/18) Lower Body Dressing (QC): 6 ([facility]-09/27/18) On/Off Footwear (QC): 6 ([facility]-09/27/18) Toileting(FIM): 6 ([facility]-09/27/18) Toileting Hygiene (QC): 6 ([facility]-09/27/18) Transfers (B,C,W/C) (FIM): 6 (met-09/27/18) Toilet/Commode Transfer(FIM): 6 ([facility]-09/27/18) Toilet/Commode Transfer (QC): 6 ([facility]-09/27/18) Shower Transfer(FIM): 5 ([facility]-09/27/18) Additional Goals: 1-Demonstrate ADL Tasks, 2-Verbalize Understanding, 3- ImproveStrength/Sri 1=Demonstrate adherence to instructed precautions during ADL tasks. 2=Patient will verbalize/demonstrate understanding of assistive devices/ modifications for ADL. 3=Patient will improve strength/tolerance for activity to enable patient to perform ADL's. KRYSTIAN GREWAL PT Sep 28, 2018 08:22
--- NOTE | 2018-09-28 08:37 | PM&R Progress Note ---
Subjective HPI/CC On Admission Date Seen by Provider: Sep 28, 2018 Time Seen by Provider: 08:40 CC: Debility following lumbar spine surgery HPI: This is a 68yoWF clinic patient of Dr Hardy who was DC from [facility] in [place] after extensive lumbar spine surgery which included cyst removal with dural tear who is in need of rehab prior to going home to live alone. Patient required supine position for 24 hours after surgery and has since done very well. Anemia post op was noted but no indication for transfusion. Post op constipation will need resolved and she will need PT/OT to overcome barriers of inability to ambulate in a safe manner and perform independent ADL's in order to recover and return home to prior functioning level of independent status. I have restarted all home meds and restarted Lortab 10 which she was receiving at [facility]. Subjective/Events-last exam Pt no longer having a fever Back pain is much controlled Nonspecific numbness periodically and she feels that those are the nerves that are healing Denies any pain currently Bowels are moving regularly Vitals remain stable Up ad naye now so DC planned for tomorrow Objective Exam Vital Signs Vital Signs Date Time Temp Pulse Resp B/P (MAP) Pulse Ox O2 Delivery O2 Flow Rate FiO2 09/28/18 06:12 98.0 74 20 117/69 (85) 96 Room Air Capillary Refill : Less Than 3 Seconds General Appearance: No Apparent Distress, WD/WN, Chronically ill HEENT: PERRL/EOMI, Normal ENT Inspection, Pharynx Normal, Moist Mucous Membranes Neck: Full Range of Motion, Normal Inspection, Non Tender, Supple Respiratory: Chest Non Tender, Lungs Clear, Normal Breath Sounds, No Accessory Muscle Use, No Respiratory Distress Cardiovascular: Regular Rate, Rhythm, No Edema, No Gallop, No JVD, No Murmur Gastrointestinal: Normal Bowel Sounds, No Organomegaly, No Pulsatile Mass, Non Tender, Soft Back: Decreased Range of Motion, Other Extremity: Normal Capillary Refill, Normal Inspection, Normal Range of Motion, Non Tender, No Calf Tenderness, No Pedal Edema Neurologic/Psychiatric: Alert, Oriented x3, Normal Mood/Affect, Motor Weakness Skin: Normal Color, Warm/Dry Lymphatic: No Adenopathy Results/Procedures Lab Patient resulted labs reviewed. FIM Transfers Therapy Code Descriptions/Definitions Functional [place] Measure: 0=Not Assessed/NA 4=Minimal Assistance 1=Total Assistance 5=Supervision or Setup 2=Maximal Assistance 6=Modified [place] 3=Moderate Assistance 7=Complete [place] Therapy Quality Codes: 6 Independent with activity with or without an assistive device 5 Patient requires set up or clean up by helper. Patient completes activity by themselves 4 Supervision or touching assist (CGA). [place] provide cues , steadying assist 3 The helper provides less than half the effort to complete the activity 2 The helper provides more than half the effort to complete the activity 1 Dependent. The helper does all the effort to complete an activity 7 Patient refused to complete or attempt activity 9 The patient did not perform the activity before the current illness or injury 88 Not attempted due to Medical conditions or safety concerns Mental Status/Objective Comprehension: 7 Expression: 7 Social Interaction: 7 Problem Solvin Memory: 7 ADL-Treatment Feedin (Pt able to set self up and use regular utensils to feed self.) Eating (QC): 6 Groomin (Using sink for support, pt able to complete by self.) Oral Hygiene (QC): 6 Bathin (Using tub transfer bench, grabbar and hand held shower pt able to complete by self.) Bathing Location: L Arm, R Arm, L Upper Leg, R Upper Leg, L Lower Leg ( including foot), R Lower Leg (including foot), Chest, Abdomen, Buttocks, Perineal Area Shower/Bathe Self (QC): 6 Upper Extremity Dressin (Using FWW to retrieve clothing pt able to complete by self.) Upper Body Dressing (QC): 6 Lower Extremity Dressin (Using FWW to retrieve clothing and AE to adhere to back precautions pt able to complete by self.) Lower Body Dressing (QC): 6 On/Off Footwear (QC): 6 Toiletin (Using grabbars and FWW, pt able to complete by self.) Toileting Hygiene (QC): 6 Toilet/Commode Transfer: 6 (Using FWW and grabbars, pt able to complete by self.) Toilet Transfer (QC): 6 Tub: 6 (Using tub bench, pt able to complete by self.) Shower: 6 (Pt has demonstrated ability to complete from previous OT sessiong to complete using AE by self.) Assessment/Plan Assessment and Plan Assess & Plan/Chief Complaint Assessment: (1) Lumbar stenosis POD # [address] Clements at [facility] (2) Hypertension (3) Hyperlipidemia (4) KORTNEY on CPAP (5) GERD (gastroesophageal reflux disease) (6) IBS (irritable bowel syndrome) (7) Constipation-resolved 09/23/18 (8) Anxiety (9) Acute blood loss as cause of postoperative anemia (10) Esophageal reflux disease (11) Hypothyroidism (12) Fever-resolved Plan: Debility resolution before going home Continue close BP monitoring DC tomorrow home (1) Lumbar stenosis (2) Hypertension (3) Hyperlipidemia (4) KORTNEY on CPAP (5) GERD (gastroesophageal reflux disease) (6) IBS (irritable bowel syndrome) (7) Constipation (8) Anxiety (9) Acute blood loss as cause of postoperative anemia (10) Esophageal reflux disease (11) Hypothyroidism (12) Fever DANIELA BHARDWAJ DO Sep 28, 2018 08:37
[2018-09-28] MEDS ORDERED: HYDR-3820 PO (08:42)
--- NOTE | 2018-09-28 08:44 | D/C HH Face to Face Order ---
D/C Face to Face Orders Instructions for Patient Via [facility], Patient Instructions/FollowUp: Dr Hardy and Dr Clements as scheduled Physician to follow Patient: Dr Hardy Discharge Diet for Home: No Restrictions Patient Problems: Lumbar spine surgery Patient Data-Allergies,Ht & Wt Patient Allergies: Coded Allergies: adhesive (Verified Allergy, Intermediate, RASH, 06/02/18) rash from tape from OSH postop Sulfa (Sulfonamide Antibiotics) (Verified Allergy, Unknown, 12/21/06) Height (Feet): 5 Height (Inches): 7.00 Weight (Pounds): 201 Weight (Ounces): 1.0 Home Health Need/Face to Face Date of Face to Face: Sep 28, 2018 Clinical Findings: Generalized weakness and fatigue, Instability, Muscle weakness, Pain with ambulation, Unsteady gait I have seen Pt fxxj-an-fyxk: Yes Discharged To: Home Diagnosis/Conditions: Lumbar spine surgery Patient is Homebound due to: Karen fall risk due to instabilty, Muscle weakness , Pain w/ambulation Homebound Status Due to the above stated illness, injury or surgical procedure (medical condition or diagnosis) and associated clinical findings, the patient is homebound because of his/her inability to leave home except with aid of a supportive device and/or person AND leaving the home requires a considerable and taxing effort or is medically contraindicated. Pt req the following assistanc: Walker [facility] Nursing Orders Home Health Services Order: Nursing Services, Installer Apprentice-Evaluate & Treat, Physical Therapy-Evaluate & Treat Certify Stmt I certify that this patient is under my care and that I, a nurse practitioner or a physician; a tax accounting assistant working with me, had a face to face encounter that - meets the physician face to face encounter requirements with this patient as dated. DANIELA BHARDWAJ DO Sep 28, 2018 08:43
--- NOTE | 2018-09-28 08:44 | Discharge Summary ---
Diagnosis/Chief Complaint Date of Admission Sep 22, 2018 at 17:30 Date of Discharge Discharge Date: Sep 28, 2018 Discharge Diagnosis Assessment: (1) Lumbar stenosis POD # [address] Clements at [facility] (2) Hypertension (3) Hyperlipidemia (4) KORTNEY on CPAP (5) GERD (gastroesophageal reflux disease) (6) IBS (irritable bowel syndrome) (7) Constipation-resolved 09/23/18 (8) Anxiety (9) Acute blood loss as cause of postoperative anemia (10) Esophageal reflux disease (11) Hypothyroidism (12) Fever-resolved Discharge Summary Discharge Physical Examination Allergies: Coded Allergies: adhesive (Verified Allergy, Intermediate, RASH, 06/02/18) rash from tape from OSH postop Sulfa (Sulfonamide Antibiotics) (Verified Allergy, Unknown, 12/21/06) Vitals & I&Os Vital Signs Date Time Temp Pulse Resp B/P (MAP) Pulse Ox O2 Delivery O2 Flow Rate FiO2 09/28/18 14:03 78 20 111/50 96 Room Air 09/28/18 06:12 98.0 Hospital Course Was the Problem List Reviewed?: Yes Hospital course: Pt had an uneventful hospital course with six days in inpatient rehab unit. Tried participating in all therapies required. Bowel function regained normalcy after post op constipation resolved the day after discharge. Pain was controlled with Lortab . Dr. Hardy her PCP was consulted and provided additional support. Pt had no significant clinical decompensation and was able to return back to independent living and she had no significant questions or concerns at time of discharge and she was comfortable with the discharge plan on home health and was given prescription for pain medication at the time of discharge. All ADLs maintained and prior level of functioning returned back to baseline. Labs (last 24 hrs) Laboratory Tests 09/23/18 06:02: White Blood Count 7.7, Red Blood Count 2.73L, Hemoglobin 8.3L, Hematocrit 26L, Mean Corpuscular Volume 95, Mean Corpuscular Hemoglobin 30, Mean Corpuscular Hemoglobin Concent 32, Red Cell Distribution Width 15.0H, Platelet Count 146, Mean Platelet Volume 10.9H, Neutrophils (%) (Auto) 75, Lymphocytes (%) (Auto) 13 , Monocytes (%) (Auto) 10, Eosinophils (%) (Auto) 3, Basophils (%) (Auto) 0, Neutrophils # (Auto) 5.8, Lymphocytes # (Auto) 1.0, Monocytes # (Auto) 0.7, Eosinophils # (Auto) 0.2, Basophils # (Auto) 0.0, Sodium Level 141, Potassium Level 3.6, Chloride Level 106, Carbon Dioxide Level 26, Anion Gap 9, Blood Urea Nitrogen 13, Creatinine 0.62, Estimat Glomerular Filtration Rate > 60, BUN/ Creatinine Ratio 21, Glucose Level 132H, Calcium Level 9.0, Corrected Calcium 9.5, Total Bilirubin 0.6, Aspartate Amino Transf (AST/SGOT) 33, Alanine Aminotransferase (ALT/SGPT) 42, Alkaline Phosphatase 77, Total Protein 5.9L, Albumin 3.4 Pending Labs Laboratory Tests 09/23/18 06:02: White Blood Count 7.7, Red Blood Count 2.73, Hemoglobin 8.3, Hematocrit 26, Mean Corpuscular Volume 95, Mean Corpuscular Hemoglobin 30, Mean Corpuscular Hemoglobin Concent 32, Red Cell Distribution Width 15.0, Platelet Count 146, Mean Platelet Volume 10.9, Neutrophils (%) (Auto) 75, Lymphocytes (%) (Auto) 13 , Monocytes (%) (Auto) 10, Eosinophils (%) (Auto) 3, Basophils (%) (Auto) 0, Neutrophils # (Auto) 5.8, Lymphocytes # (Auto) 1.0, Monocytes # (Auto) 0.7, Eosinophils # (Auto) 0.2, Basophils # (Auto) 0.0, Sodium Level 141, Potassium Level 3.6, Chloride Level 106, Carbon Dioxide Level 26, Anion Gap 9, Blood Urea Nitrogen 13, Creatinine 0.62, Estimat Glomerular Filtration Rate > 60, BUN/ Creatinine Ratio 21, Glucose Level 132, Calcium Level 9.0, Corrected Calcium 9.5 , Total Bilirubin 0.6, Aspartate Amino Transf (AST/SGOT) 33, Alanine Aminotransferase (ALT/SGPT) 42, Alkaline Phosphatase 77, Total Protein 5.9, Albumin 3.4 Discharge Home Medications: Active Scripts Active Hydrocodon-Acetaminophn 10-325 (Hydrocodone/Acetaminophen) 1 Each Tablet 1 Ea PO Q6HR PRN Reported Vitamin C (Ascorbic Acid) 1,000 Mg Tablet 1,000 Mg PO DAILY Vitamin B-12 (Cyanocobalamin (Vitamin B-12)) 1,000 Mcg Tablet 1,000 Mcg PO DAILY Vitamin B-6 (Pyridoxine HCl) 100 Mg Tablet 100 Mg PO DAILY Protonix (Pantoprazole Sodium) 40 Mg Tablet.dr 40 Mg PO DAILY Co Q-10 (Ubidecarenone) 100 Mg Capsule 100 Mg PO DAILY Magnesium (Magnesium Oxide) 400 Mg Tablet 400 Mg PO DAILY Aspirin EC (Aspirin) 81 Mg Tablet.dr 81 Mg PO DAILY Vitamin B Complex 1 Each Capsule 1 Cap PO DAILY Fish Oil 1,000 mg Capsule ([place] 3 Polyunsat Fatty Acids) 1,000 Mg Cap 1,000 Mg PO DAILY Vitamin D3 (Cholecalciferol (Vitamin D3)) 5,000 Unit Capsule 5,000 Unit PO DAILY Calcium 500 + D Tablet (Calcium Carbonate/Vitamin D3) 1 Each Tablet 1 Tab PO DAILY Daily Vitamin Formula (Multivitamin) 1 Each Tablet 1 Tab PO DAILY Zyrtec (Cetirizine HCl) 10 Mg Tablet 10 Mg PO DAILY Losartan Potassium 100 Mg Tablet 100 Mg PO DAILY Atorvastatin Calcium 40 Mg Tablet 40 Mg PO DAILY Amlodipine Besylate 5 Mg Tablet 5 Mg PO DAILY Tramadol-Acetaminophn 37.5-325 (Tramadol HCl/Acetaminophen) 1 Each Tablet 2 Tab PO Q6H PRN Potassium Chloride 10 Meq Tab.er.prt 10 Meq PO DAILY Naproxen 500 Mg Tablet 500 Mg PO BID Fluticasone Propionate 16 Gm [place].susp 1 [place] NS BID Baclofen 10 Mg Tablet 10 Mg PO TID Miralax (Polyethylene Glycol 3350) 17 Gm Powd.pack 17 Gm PO DAILY Trazodone HCl 50 Mg Tablet 50 Mg PO HS Levothyroxine Sodium 125 Mcg Tablet 125 Mcg PO DAILY Carvedilol 6.25 Mg Tablet 6.25 Mg PO BID Gabapentin 300 Mg Capsule 300 Mg PO TID Instructions to patient/family Please see electronic discharge instructions given to patient. Diagnosis/Problems Diagnosis/Problems (1) Lumbar stenosis (2) Hypertension (3) Hyperlipidemia (4) KORTNEY on CPAP (5) GERD (gastroesophageal reflux disease) (6) IBS (irritable bowel syndrome) (7) Constipation (8) Anxiety (9) Acute blood loss as cause of postoperative anemia (10) Esophageal reflux disease (11) Hypothyroidism Status: Acute (12) Fever Clinical Quality Measures DVT/VTE Risk/Contraindication: Risk Factor Score Per Nursin RFS Level Per Nursing on Admit: 4+=Very High DANIELA BHARDWAJ DO Sep 28, 2018 08:44
--- NOTE | 2018-09-28 13:51 | Therapy Team Discharge Summary ---
Therapy Discharge Summary Discharge Recommendations Date of Discharge 09-28-18 Therapy D/C Recommendations: Home Independently Occupational Therapy Pt. has been seen by occupational therapy to increase overall strength and independence with daily tasks. Pt. has met all goals. Pt. is able to bathe and dress self, toilet self with Mod I. Pt. discharged home with all needed equipment. PT Hot Blaster Goals Hot Blaster Goals PT Jail Goals Time Frame: October 14, 2018 Transfers (B,C,W/C) (FIM): 6 (met) Roll Left to Right (QC): 6 (met) Sit to Lying (QC): 6 (metmet) Lying-Sitting on Side/Bed(QC): 6 (met) Sit to Stand (QC): 6 (met) Chair/Chs-eq-Yreav Xfer(QC): 6 (met) Car Transfer (QC): 6 (met) Gait (FIM): 6 (met) Distance: 300' Walk 10 feet (QC): 6 Walk 10ft-Uneven Surface(QC): 6 Walk 50ft with 2 Turns (QC): 6 Walk 150 ft (QC): 6 Gait Level of Assist: 6 Gait Assistive Device: FWW Stairs (FIM): 2 (met) # of Steps: 4 1 Step (curb) (QC): 4 4 Steps (QC): 4 Stairs Level Of Assist: 5 OT Hot Blaster Goals Hot Blaster Goals Time Frame: Oct 07, 2018 Eating (FIM): 6 (met-09/27/18) Eating (QC): 6 (met-09/27/18) Oral Hygiene (QC): 6 (met-09/27/18) Grooming(FIM): 6 (met-09/27/18) Bathing(FIM): 5 (met-09/27/18) Shower/Bathe Self (QC): 5 (met-09/27/18) Upper Body Dressing(FIM): 6 (met-09/27/18) Upper Body Dressing (QC): 6 (met-09/27/18) Lower Body Dressing(FIM): 6 (met-09/27/18) Lower Body Dressing (QC): 6 (met-09/27/18) On/Off Footwear (QC): 6 (met-09/27/18) Toileting(FIM): 6 (met-09/27/18) Toileting Hygiene (QC): 6 (met-09/27/18) Transfers (B,C,W/C) (FIM): 6 (met-09/27/18) Toilet/Commode Transfer(FIM): 6 (met-09/27/18) Toilet/Commode Transfer (QC): 6 (met-09/27/18) Shower Transfer(FIM): 5 (met-09/27/18) Additional Goals: 1-Demonstrate ADL Tasks, 2-Verbalize Understanding, 3- ImproveStrength/Sri 1=Demonstrate adherence to instructed precautions during ADL tasks. 2=Patient will verbalize/demonstrate understanding of assistive devices/ modifications for ADL. 3=Patient will improve strength/tolerance for activity to enable patient to perform ADL's. GEETA TRINIDAD OT Sep 28, 2018 13:51
[2018-09-28 14:03] VITALS: BP 111/50
== END 2018-09-28 11:00 | disposition home health service (06) | DRG 560 ==
PROVIDERS: ADMIT Internal Medicine; ATTEND Internal Medicine
DX: Z47.89 Encounter for other orthopedic aftercare (principal); D62 Acute posthemorrhagic anemia; G47.33 Obstructive sleep apnea (adult) (pediatric); E78.5 Hyperlipidemia, unspecified; I10 Essential (primary) hypertension; K21.9 Gastro-esophageal reflux disease without esophagitis; K58.1 Irritable bowel syndrome with constipation; E03.9 Hypothyroidism, unspecified; F41.9 Anxiety disorder, unspecified; R50.9 Fever, unspecified; Z87.891 Personal history of nicotine dependence; Z97.4 Presence of external hearing-aid
CPT/HCPCS: 36415; 80053; 85025

== ENCOUNTER → 2018-11-15 | Outpatient (CLI) | payer MEDICARE, OTHER ==
[~2018-11-15] MED LIST changes: +ASCO10006 PO; +CYAN10006 PO; +PANT40TA2 PO; +PYRI100T2 PO; -TRAZ-189 PO; +TRAZ-222 PO
--- NOTE | 2018-11-15 18:26 | Diagnostic Imaging Report ---
INDICATION: Acute onset medial knee pain three weeks ago. FINDINGS: Three views. There is advanced arthritic change in the medial compartment with complete loss of joint space. Lateral compartment is relatively well preserved. There is chondrocalcinosis. The patellofemoral joint shows moderate hypertrophic changes. There are no fractures. No definite loose bodies are seen. There is vascular calcification in the distal femoral and popliteal arteries. IMPRESSION: Tricompartmental arthritic changes with advanced arthritic change in the medial compartment and the patellofemoral joint. Dictated by: Dictated on workstation # [id number]
== END ==
LOC: RAD 16:30
PROVIDERS: ATTEND Nurse Practitioner Family
DX: M17.11 Unilateral primary osteoarthritis, right knee (principal)
CPT/HCPCS: 73562

== ENCOUNTER 2019-04-22 12:40 | Outpatient (CLI) | payer MEDICARE, OTHER ==
[~2019-04-22] VITALS: Ht 170.2 cm; Wt 90.3 kg
[~2019-04-22 12:40] MED LIST changes: -BISA10SU6 RC; +BISA10SU8 RC; -CALC500T3 PO; +CALC500T64 PO; +CYAN-41 PO; -CYAN10006 PO
[2019-04-22 13:02] VITALS: BP 151/80
[2019-04-22 13:52] LABS: BASOPHILS % (AUTO) 0 % (0-10); EOSINOPHILS # (AUTO) 0.2 10^3/uL (0.0-0.3); EOSINOPHILS % (AUTO) 3 % (0-10); HEMATOCRIT 40 % (35-52); HEMOGLOBIN 12.7 G/DL (11.5-16.0); LYMPHOCYTES # (AUTO) 0.9 X 10^3 (1.0-4.0); LYMPHOCYTES % (AUTO) 16 % (12-44); MEAN CORPUSCULAR HEMOGLOBIN 30 PG (25-34); MEAN CORPUSCULAR HGB CONC 32 G/DL (32-36); MEAN CORPUSCULAR VOLUME 93 FL (80-99); MEAN PLATELET VOLUME 10.6 FL (7.4-10.4); MONOCYTES # (AUTO) 0.4 X 10^3 (0.0-1.0); MONOCYTES % (AUTO) 7 % (0-12); NEUTROPHILS # (AUTO) 4.3 X 10^3 (1.8-7.8); NEUTROPHILS % (AUTO) 75 % (42-75); PLATELET COUNT 189 10^3/uL (130-400); RED CELL DISTRIBUTION WIDTH 14.9 % (10.0-14.5); WHITE BLOOD COUNT 5.7 10^3/uL (4.3-11.0)
[2019-04-22 13:54] LABS: BILIRUBIN,URINE NEGATIVE (NEGATIVE); CLARITY,URINE CLEAR; COLOR,URINE YELLOW; GLUCOSE, URINE (UA) NEGATIVE (NEGATIVE); KETONES,URINE NEGATIVE (NEGATIVE); LEUKOCYTE ESTERASE ,URINE NEGATIVE (NEGATIVE); NITRITE,URINE NEGATIVE (NEGATIVE); PROTEIN,URINE NEGATIVE (NEGATIVE)
[2019-04-22 14:02] LABS: BACTERIA,URINE NEGATIVE /HPF; RBC,URINE RARE /HPF; SQUAMOUS EPITHELIAL CELL,UR 0-2 /HPF
[2019-04-22 14:06] LABS: PROTHROMBIN TIME PATIENT 13.2 SEC (12.2-14.7)
--- NOTE | 2019-04-22 14:08 | Diagnostic Imaging Report ---
INDICATION: Preop for knee replacement. PA and lateral chest obtained at 01:56 p.m. Heart and mediastinal silhouette are normal in appearance. The lungs are clear. There is no pneumothorax or pleural fluid. There are diffuse degenerative findings in the thoracic spine. IMPRESSION: Negative chest. Dictated by: Dictated on workstation # [id number]
[2019-04-22 14:10] LABS: BUN/CREATININE RATIO 14; CALCIUM 10.2 MG/DL (8.5-10.1); CARBON DIOXIDE 25 MMOL/L (21-32); CHLORIDE 106 MMOL/L (98-107); GFR ESTIMATED > 60; GLUCOSE 87 MG/DL (70-105); POTASSIUM 3.6 MMOL/L (3.6-5.0); SODIUM 145 MMOL/L (135-145)
[2019-04-22] MEDS ORDERED: TRIA10.8 NSEACH (14:25)
[2019-04-22] MEDS ORDERED: LEVO137T2 PO (14:25)
[2019-04-22] MEDS ORDERED: FERR256T PO (14:25)
== END 2019-04-22 14:00 | disposition home or self-care (01) ==
LOC: PREOP 12:40
PROVIDERS: ATTEND Orthopaedic Surgery
DX: M79.661 Pain in right lower leg (principal); M17.11 Unilateral primary osteoarthritis, right knee
CPT/HCPCS: 36415; 71046; 80048; 81000; 85025; 85610; 86850; 86900; 86901; 87081; 93005

== ENCOUNTER 2019-05-03 08:40 | Inpatient (IN) | payer MEDICARE, OTHER ==
[2019-05-03] VITALS (10 sets, daily range): BP systolic 123–172; BP diastolic 69–97
[~2019-05-03] VITALS: Ht 170.2 cm; Wt 90.3 kg
[~2019-05-03 08:40] MED LIST changes: +FERR256T PO; +LEVO137T2 PO; +TRIA10.8 NSEACH
[2019-05-03] MEDS ORDERED: DEXAMETHASONE 4 MG/ML SDV (DECADRON) IV ONE (09:00)
[2019-05-03] MEDS ORDERED: ONDANSETRON 4 MG/2 ML (SDV) Z0FRAN IVP ONE (09:00)
[2019-05-03] MEDS ORDERED: ceFAZolin 2 GM IV Premixed 50 ML IV ONE (09:00)
[2019-05-03] MEDS ORDERED: CELECOXIB 100 MG (CeleBREX) CAP PO ONE (09:00)
[2019-05-03] MEDS ORDERED: GABAPENTIN 600 MG (NEURONTIN) TAB PO ONE (09:00)
[2019-05-03] MEDS ORDERED: CATHETER FLUSH 10 ML SYR IV PRN (09:15)
[2019-05-03] MEDS ORDERED: BUPIVACAINE 0.5% 30 ML (SENSORCAINE) VIAL ONE (09:26)
[2019-05-03] MEDS ORDERED: MIDAZOLAM 2 MG/2 ML (VERSED) VIAL ONE (09:26)
[2019-05-03] MEDS: LACTATED RINGERS 1,000 ML IV PRN ×2 (09:30→11:38)
[2019-05-03] MEDS ORDERED: NEO/POLY/BAC (NEOSPORIN) OINT 15 GM TUBE ONE (09:54)
[2019-05-03] MEDS ORDERED: GENTAMICIN 40 MG/ML 2 ML INJ SDV ONE (09:54)
[2019-05-03] MEDS ORDERED: fentaNYL INJECTION 100 MCG/2 ML AMP ONE ×2 (09:56→11:27)
[2019-05-03] MEDS ORDERED: LIDOCAINE PF 2% 5 ML (XYLOCAINE) VIAL ONE (09:56)
[2019-05-03] MEDS ORDERED: ONDANSETRON 4 MG/2 ML (SDV) Z0FRAN ONE (09:56)
[2019-05-03] MEDS ORDERED: proPOfol 200 MG/20 ML (DIPRIVAN) VIAL IV ONE (09:56)
[2019-05-03] MEDS ORDERED: DEXAMETHASONE 10 MG/ML (DECADRON) 1 ML VIAL ONE (09:56)
[2019-05-03] MEDS ORDERED: SEVOFLURANE (ULTANE) 15 ML INHAL SOLN ONE (09:56)
[2019-05-03] MEDS ORDERED: TRANEXAMIC ACID 100 MG/ML 10 ML INJECTION IV ONE (10:06)
--- NOTE | 2019-05-03 10:18 | Progress Note-Pre Operative ---
Pre-Operative Progress Note H&P Reviewed The H&P was reviewed, patient examined and no changes noted. Date Seen by Provider: May 03, 2019 Time Seen by Provider: 10:00 Date H&P Reviewed: May 03, 2019 Time H&P Reviewed: 10:00 Pre-Operative Diagnosis: Primary Osteoarthritis Right Knee ROXANNE NELSON DO May 03, 2019 10:18 POS
[2019-05-03] MEDS ORDERED: INTRA-ARTICULAR IU ONE ×4 (10:30)
[2019-05-03] MEDS ORDERED: MILK OF MAGNESIA 400 MG/5 ML 30 ML UDC PO PRN (10:45)
[2019-05-03] MEDS ORDERED: BISACODYL 10 MG SUPP (DULCOLAX) PR PRN (10:45)
[2019-05-03] MEDS ORDERED: morphine INJ 4 MG/ML 1 ML (VIAL/SYRINGE) IV PRN (10:45)
[2019-05-03] MEDS ORDERED: D5 1/2 NS 1000 ML IV SOLUTION 1,000 ML IV SCH (10:45)
[2019-05-03] MEDS ORDERED: diphenhydrAMINE 50 MG/ML INJ (BENADRYL) IV PRN (10:45)
[2019-05-03] MEDS ORDERED: KETOROLAC 15 MG/ML VIAL IV SCH (12:00)
--- NOTE | 2019-05-03 12:38 | Progress Note-Post Operative ---
Post-Operative Progess Note Surgeon (s)/Logging Assistant (s) Surgeon ROXANNE NELSON DO Logging Assistant: Christopher Ritter PET GROOMERDeidra Pre-Operative Diagnosis Primary Osteoarthritis Right Knee Post-Operative Diagnosis same Procedure & Operative Findings Date of Procedure 05/03/19 Procedure Performed/Findings Right Total Knee Arthroplasty Anesthesia Type General with femoral and genicular block Estimated Blood Loss Estimated blood loss (mL): 300 ml Specimens/Packing Specimens Removed none ROXANNE NELSON DO May 03, 2019 12:38 POS
[2019-05-03] MEDS ORDERED: morphine INJ 10 MG/ML 1ML (SYR OR VIAL) IVP ONE (13:00)
[2019-05-03] MEDS ORDERED: fentaNYL INJECTION 100 MCG/2 ML AMP IVP ONE (13:00)
[2019-05-03] MEDS ORDERED: MEPERIDINE (DEMEROL) INJ 50 MG/ML IVP ONE (13:00)
[2019-05-03] MEDS ORDERED: ONDANSETRON 4 MG/2 ML (SDV) Z0FRAN IVP PRN (13:00)
[2019-05-03] MEDS ORDERED: morphine INJ 10 MG/ML 1ML (SYR OR VIAL) ONE (13:17)
[2019-05-03] MEDS ORDERED: KETOROLAC 30 MG/ML VIAL ONE (13:17)
--- NOTE | 2019-05-03 15:10 | Diagnostic Imaging Report ---
INDICATION: Postop total knee. FINDINGS: Total knee arthroplasty has been performed in good alignment. No suspicious retained foreign body. No unexpected post operative findings. IMPRESSION: Anatomically aligned postop total knee with no unexpected findings. Dictated by: Dictated on workstation # [id number]
[2019-05-03] MEDS: GABAPENTIN 300 MG (NEURONTIN) CAP PO SCH ×3 (15:34→20:59)
[2019-05-03] MEDS: ACETAMINOPHEN 500 MG TAB (TYLENOL) PO SCH ×2 (15:34→17:04)
[2019-05-03] MEDS: ENOXAPARIN 40 MG/0.4 ML (LOVENOX) SYR SC SCH (15:34)
[2019-05-03] MEDS: BACLOFEN 10 MG (LIORESAL) TAB PO SCH ×2 (15:34→20:59)
[2019-05-03] MEDS: ceFAZolin 2 GM IV Premixed 50 ML IV SCH (17:03)
[2019-05-03] MEDS: FLUTICASONE NASAL SPRAY (FLONASE) 16 GM BTL NS SCH (20:49)
[2019-05-03] MEDS: SENNA W/DOCUSATE (SENOKOT S) TABLET PO SCH (20:59)
[2019-05-03] MEDS: traZODone 50 MG (DESYREL) TAB PO SCH (20:59)
[2019-05-03] MEDS: CARVEDILOL 6.25 MG (COREG) TAB PO SCH (20:59)
[2019-05-03] MEDS: PANTOPRAZOLE 40 MG (PROTONIX) TAB PO SCH (20:59)
[2019-05-04] VITALS (7 sets, daily range): BP systolic 114–134; BP diastolic 56–67
[2019-05-04] MEDS: ceFAZolin 2 GM IV Premixed 50 ML IV SCH (00:12)
[2019-05-04] MEDS: ACETAMINOPHEN 500 MG TAB (TYLENOL) PO SCH ×5 (00:13→23:15)
[2019-05-04 05:01] LABS: HEMOGLOBIN 10.7 G/DL (11.5-16.0); MEAN PLATELET VOLUME 10.9 FL (7.4-10.4); RED CELL DISTRIBUTION WIDTH 14.8 % (10.0-14.5); WHITE BLOOD COUNT 9.1 10^3/uL (4.3-11.0)
[2019-05-04 05:23] LABS: BUN/CREATININE RATIO 19; CALCIUM 8.6 MG/DL (8.5-10.1); CARBON DIOXIDE 23 MMOL/L (21-32); CHLORIDE 104 MMOL/L (98-107); CREATININE SERUM 0.84 MG/DL (0.60-1.30); GFR ESTIMATED > 60; GLUCOSE 148 MG/DL (70-105); POTASSIUM 3.7 MMOL/L (3.6-5.0); SODIUM 141 MMOL/L (135-145)
[2019-05-04] MEDS: LEVOTHYROXINE 25 MCG (LEVOTHROID) TAB PO SCH (05:40)
[2019-05-04] MEDS: LEVOTHYROXINE 112 MCG (LEVOTHROID) TAB PO SCH (05:40)
[2019-05-04] MEDS: KCL 10 MEQ TAB (MICRO K) PO SCH (05:52)
[2019-05-04] MEDS: PANTOPRAZOLE 40 MG (PROTONIX) TAB PO SCH ×2 (08:22→20:09)
[2019-05-04] MEDS: GABAPENTIN 300 MG (NEURONTIN) CAP PO SCH ×4 (08:22→20:09)
[2019-05-04] MEDS: ASPIRIN E.C. 325 MG (ECOTRIN) TABLET PO SCH (08:22)
[2019-05-04] MEDS: BACLOFEN 10 MG (LIORESAL) TAB PO SCH ×3 (08:22→20:09)
[2019-05-04] MEDS: CARVEDILOL 6.25 MG (COREG) TAB PO SCH ×2 (08:23→20:08)
[2019-05-04] MEDS: MAGNESIUM OXIDE (MAG-OX)400 MG TAB PO SCH (08:23)
[2019-05-04] MEDS: LOSARTAN 100 MG (COZAAR) TABLET PO SCH (08:23)
[2019-05-04] MEDS: amLODIPine 5 MG (NORVASC) TAB PO SCH (08:24)
[2019-05-04] MEDS: FLUTICASONE NASAL SPRAY (FLONASE) 16 GM BTL NS SCH ×2 (08:27→20:08)
[2019-05-04] MEDS ORDERED: NON-FORMULARY MEDICATION 1 EA EA (Ubidecarenone (Co Q-10) 100 MG) PO SCH (09:00)
[2019-05-04] MEDS ORDERED: ASPIRIN E.C. 81 MG (ECOTRIN) TAB PO SCH (09:00)
--- NOTE | 2019-05-04 09:58 | Anesthesia-General Post-Op ---
General Patient Condition Mental Status/LOC: Same as Preop Cardiovascular: Satisfactory Nausea/Vomiting: Absent Respiratory: Satisfactory Pain: Controlled Complications: Absent Post Op Complications Complications None Follow Up Care/Instructions Patient Instructions None needed. Anesthesia/Patient Condition Patient Condition Patient is doing well, no complaints, stable vital signs, no apparent adverse anesthesia problems. No complications reported per nursing. [place] [facility] [place]: ENMA Nguyen CRNA May 04, 2019 09:58 POS
--- NOTE | 2019-05-04 10:13 | Physical Therapy Evaluation ---
PT Evaluation-General Medical Diagnosis Admission Date May 03, 2019 at 08:40 Medical Diagnosis: S/P R TKA Onset Date: May 03, 2019 Therapy Diagnosis Therapy Diagnosis: abn gait, decreased strength Height/Weight Height (Feet): 5 Height (Inches): 7.00 Weight (Pounds): 201 Weight (Ounces): 1.0 Precautions Precautions/Isolations: Fall Prevention, Standard Precautions Weight Bear Status Right Lower Extremity: Right Weight Bearing/Tolerated Left Lower Extremity: Left Weight Bearing/Tolerated Referral Physician: Christopher Ritter Reason for Referral: Evaluation/Treatment, Strengthening Medical History Pertinent Medical History: Arthritis, GERD, HTN, Hypothroidism, OA Reviewed History: Yes Social History Home: Single Level Current Living Status: Alone Entry Into Home: Ramp Prior Prior Level of Function SCALE: Activities may be completed with or without assistive devices. 3-Kxvcskxskm-ucueawa completes the activity by him/herself with no assistance from a helper. 5-Set-up or Clean-up Assistance-helper sets up or cleans up; patient completes activity. Franklin assists only prior to or following the activity. 4-Supervision or Touching Assistance-helper provides verbal cues and/or touching/steadying and/or contact guard assistance as patient completes activity. Assistance may be provided throughout the activity or intermittently. 3-Partial/Moderate Assistance-helper does LESS THAN HALF the effort. Franklin lifts, holds or supports trunk or limbs, but provides less than half the effort. 2-Substantial/Maximal Assistance-helper does MORE THAN HALF the effort. Franklin lifts or holds trunk or limbs and provides more than half the effort. 7-Uzakbvlea-ddgvmj does ALL the effort. Patient does none of the effort to complete the activity. Or, the assistance of 2 or more helpers is required for the patient to complete the activity. If activity was not attempted, code reason: 7-Patient Refused. 9-Not Applicable-not attempted and the patient did not perform the activity before the current illness, exacerbation or injury. 10-Not Attempted due to Environmental Limitations-(lack of equipment, weather restraints, etc.). 88-Not Attempted due to Medical Conditions or Safety Concerns. Bed Mobility: 6 Transfers (B,C,W/C): 6 Gait: 6 Stairs: 6 Indoor Mobility (Ambulation): Independent Stairs: Independent PT Evaluation-Current Subjective pt in bed pre-tx agrees to therapy and denies any pain. Pt in bed post-tx with CPM in place set to 80degrees flexion and 2 degrees past TKE. pt with call light, room phone, tray table in reach with all needs met at this time. Pt/Family Goals pt goal is to get back home to her dog and be indep. Objective Patient Orientation: Person, Place, Time, Situation Attachments: SCD's, Polar Pack, IV ROM/Strength ROM Lower Extremities R knee flexion: 80degrees. extension lack 3 degrees from TKE Strength Lower Extremities RLE not tested secondary to post surgical status LLE grossly 5/5 throughout Integumentary/Posture Integumentary see nursing notes Sensory Vision: Functional Hearing: Functional Sensation Right Lower Extremit: Intact Sensation Left Lower Extremity: Intact Transfers Roll Left to Right (QC): 6 Sit to Lying (QC): 6 Lying to Sitting/Side of Bed(Q: 6 Sit to Stand (QC): 4 (SBA) Chair/Jgw-to-Tbibk Xfer(QC): 4 Car Transfer (QC): 88 Gait Does the Patient Walk?: Yes Mode of Locomotion: Walk Anticipated Mode of Locomotion: Walk Walk 10 feet (QC): 4 (SBA) Walk 50 ft with 2 Turns(QC): 4 (SBA) Walk 150 ft (QC): 4 (SBA) Walking 10ft/uneven surface-QC: 88 Distance: 250' Gait Assistive Device: FWW Comments/Gait Description pt able to ambulate at near normal velocity but has decreased knee flexion with RLE swing phase that patient corrects after verbal cuing. Pt limited ambulation distance just so she didn't push it too far. Wheelchair Training Does the Pt Use a Wheelchair?: No Wheel 50 ft with 2 turns (QC): 9 Wheel 150 ft (QC): 9 Type of Wheelchair: Manual Stairs 1 Step (curb) (QC): 88 4 Steps (QC): 88 12 Steps (QC): 88 Balance Sitting Static: Normal Sitting Dynamic: Normal Standing Static: Normal Standing Dynamic: Normal Picking up an Object (QC): 88 Treatment pt performed bed mobility training, transfer training, skilled ambulation train ing, education, and functional LE strengthening exercises (10 reps in supine: AP's, HS's, SLR, QS, GS, LAQ) Assessment/Needs Pt has very controlled balance and was able to ambulated with increased R knee flexion after VC but continues to be slightly limited. Pt has very short bout of dizziness with supine to sitting EOB that resolved itself. Rehab Potential: Good PT Pairer Odds Goals Prison Goals PT Prison Goals Time Frame: May 11, 2019 Roll Left & Right (QC): 6 Sit to Lying (QC): 6 Lying-Sitting on Side/Bed(QC): 6 Sit to Stand (QC): 6 Chair/Dri-bk-Cefjs Xfer(QC): 6 Toilet Transfer (QC): 6 Car Transfer (QC): 6 Does the Patient Walk: Yes Walk 10 feet (QC): 6 Walk 50ft with 2 Turns (QC): 6 Walk 150 ft (QC): 6 Walking 10ft on Uneven Surface: 6 1 Step (curb) (QC): 4 4 Steps (QC): 4 12 Steps (QC): 88 Picking up an Object (QC): 88 Does the Pt use WC or Scooter?: No Type: Manual Type: Manual pt will walk 400' indep with FWW PT Plan Problem List Problem List: Activity Tolerance, Functional Strength, Safety, Balance, Gait, Transfer, Bed Mobility, ROM Treatment/Plan Treatment Plan: Continue Plan of Care Treatment Plan: Bed Mobility, Education, Functional Activity Sri, Functional Strength, Gait, Safety, Therapeutic Exercise, Transfers Treatment Duration: May 11, 2019 Frequency: 11 times per week Estimated Hrs Per Day: .25 hour per day Patient and/or Family Agrees t: Yes Safety Risks/Education Patient Education: Gait Training, Transfer Techniques, Correct Positioning, Safety Issues Teaching Recipient: Patient Teaching Methods: Demonstration, Discussion Response to Teaching: Return Demonstration, Reinforcement Needed Discharge Recommendations Plan pt will perform functional LE strengthening exercises, skilled ambulation training, transfer training, and education. Time/GCodes Time In: 0854 Time Out: 916 Total Billed Treatment Time: 24 Total Billed Treatment 1 visit JERARDOL 10' GT 14' JIMMIE SOUZA PT May 04, 2019 10:13 POS
--- NOTE | 2019-05-04 12:18 | Progress Note ---
Subjective Date Seen by a Provider: May 04, 2019 Time Seen by a Provider: 12:16 Subjective/Events-last exam No complaints today, already ambulating over 100 ft. Pain controlled at this time. Objective Exam Vital Signs Date Time Temp Pulse Resp B/P (MAP) Pulse Ox O2 Delivery O2 Flow Rate FiO2 05/04/19 09:00 Nasal Cannula 2.00 05/04/19 08:00 36.1 92 18 122/64 (83) 91 Nasal Cannula 2.00 05/04/19 05:46 Nasal Cannula 2.00 05/04/19 04:00 36.3 81 18 130/58 (82) 96 Nasal Cannula 2.00 05/04/19 00:45 36.5 74 18 129/57 (81) 94 Nasal Cannula 2.00 05/03/19 21:00 Nasal Cannula 2.00 05/03/19 19:12 36.6 85 18 123/69 (87) 96 Nasal Cannula 2.00 05/03/19 15:36 36.4 88 18 143/77 (99) 95 Nasal Cannula 2.00 05/03/19 14:22 Nasal Cannula 2.00 05/03/19 13:55 Nasal Cannula 2 05/03/19 13:50 12 147/85 (105) 96 Nasal Cannula 2 05/03/19 13:40 37.2 16 153/84 (107) 92 Room Air 05/03/19 13:30 16 153/90 (111) 96 OxyMask 10 05/03/19 13:25 OxyMask 10 05/03/19 13:20 14 162/91 (114) 97 OxyMask 10 05/03/19 13:10 16 172/97 (122) 96 OxyMask 10 05/03/19 13:00 14 163/88 (113) 96 OxyMask 10 05/03/19 12:56 37.2 12 169/96 (120) 92 OxyMask 10 05/03/19 12:56 OxyMask 10 I & O0 05/04/19 07:00 Intake Total 2552 ml Output Total 1150 ml Balance 1402 ml Capillary Refill : Less Than 3 Seconds General Appearance: No Apparent Distress Extremity: Normal Capillary Refill, Normal Inspection, Normal Range of Motion, Non Tender, No Calf Tenderness, No Pedal Edema Neurologic/Psychiatric: Alert, Oriented x3, No Motor/Sensory Deficits, Normal Mood/Affect Skin: Normal Color, Warm/Dry (dressing CDI right knee) Results Lab Laboratory Tests 05/04/19 04:10: White Blood Count 9.1, Red Blood Count 3.59L, Hemoglobin 10.7L, Hematocrit 33L, Mean Corpuscular Volume 92, Mean Corpuscular Hemoglobin 30, Mean Corpuscular Hemoglobin Concent 32, Red Cell Distribution Width 14.8H, Platelet Count 169, Mean Platelet Volume 10.9H, Sodium Level 141, Potassium Level 3.7, Chloride Level 104, Carbon Dioxide Level 23, Anion Gap 14, Blood Urea Nitrogen 16, Creatinine 0.84, Estimat Glomerular Filtration Rate > 60, BUN/Creatinine Ratio 19, Glucose Level 148H, Calcium Level 8.6 Assessment/Plan Assessment/Plan Assess & Plan/Chief Complaint A: s/p right TKA P: Continue current treatment, DC to IRF or skilled tomorrow or thursday Clinical Quality Measures DVT/VTE Risk/Contraindication: Risk Factor Score Per Nursin RFS Level Per Nursing on Admit: 4+=Very High CARI MOE [employer] May 04, 2019 12:18 POS
--- NOTE | 2019-05-04 12:56 | Occupational Therapy Eval ---
OT Evaluation-General/PLF Medical Diagnosis Admission Date May 03, 2019 at 08:40 Medical Diagnosis: S/P R TKA Onset Date: May 03, 2019 Therapy Diagnosis Therapy Diagnosis: decreased self care skills Height/Weight Height (Feet): 5 Height (Inches): 7.00 Weight (Pounds): 201 Weight (Ounces): 1.0 Precautions Precautions/Isolations: Fall Prevention, Standard Precautions Safety Interventions: None Referral Physician: Christopher Ritter Medical History Pertinent Medical History: Arthritis, GERD, HTN, Hypothroidism, OA Current History pt s/p elective right TKA Social History Home: Single Level Current Living Status: Alone Entry Into Home: Ramp ADL-Prior Level of Function SCALE: Activities may be completed with or without assistive devices. 1-Loxcqlaxmc-lkymjpq completes the activity by him/herself with no assistance from a helper. 5-Set-up or Clean-up Assistance-helper sets up or cleans up; patient completes activity. [place] assists only prior to or following the activity. 4-Supervision or Touching Assistance-helper provides verbal cues and/or touchi ng/steadying and/or contact guard assistance as patient completes activity. Assistance may be provided throughout the activity or intermittently. 3-Partial/Moderate Assistance-helper does LESS THAN HALF the effort. [place] lifts, holds or supports trunk or limbs, but provides less than half the effort. 2-Substantial/Maximal Assistance-helper does MORE THAN HALF the effort. [place] lifts or holds trunk or limbs and provides more than half the effort. 2-Rifsmukxc-vcfyly does ALL the effort. Patient does none of the effort to complete the activity. Or, the assistance of 2 or more helpers is required for the patient to complete the activity. If activity was not attempted, code reason: 7-Patient Refused. 9-Not Applicable-not attempted and the patient did not perform the activity before the current illness, exacerbation or injury. 10-Not Attempted due to Environmental Limitations-(lack of equipment, weather restraints, etc.). 88-Not Attempted due to Medical Conditions or Safety Concerns. ADL PLOF Comments Pt reports being independent and active prior to surgery. Self Care: Independent Functional Cognition: Independent DME/Equipment: Shower, Toilet/Riser DME/Equipment Comments has hip kit from previous back surgery Drive Self: Yes OT Current Status Subjective Pt in bed, agrees to therapy. Reports 6/10 pain in right knee. Mental Status/Objective Patient Orientation: Person, Place, Situation Current Glasses/Contacts: Yes Upper Extremity ROM Grossly WFL Upper Extremity Coordination Intact ADL-Treatment ADL-Current Pt supine to sit with supervision. Pt states she has already completed a sponge bath, but would like to get dressed. Pt completed dressing tasks while seated EOB. Don shirt with set up. Pt able to thread bilateral LE into pants. Stood with supervision for balance during pant hike. Gait to restroom with FWW. Transfer to toilet with supervision using grab bars for safety. Pt able to complete toileting hygiene and clothing management with SBA. Pt stood at sink to wash hands with supervision. Transfer to chair with SBA. Pt sitting in chair with needs met, RN and visitor present after session. Eating (QC): 6 (per report) Oral Hygiene (QC): 10 Shower/Bathe Self (QC): 10 Upper Body Dressing (QC): 5 Lower Body Dressing (QC): 4 (SBA) On/Off Footwear (QC): 10 Toileting Hygiene (QC): 4 (SBA) Toilet Transfer (QC): 4 (SBA) Education OT Patient Education: Rehab process Teaching Recipient: Patient Teaching Methods: Discussion Response to Teaching: Verbalize Understanding OT Chcf Goals Chcf Goals Time Frame: May 11, 2019 Eating (QC): 6 Oral Hygiene (QC): 6 Toileting Hygiene (QC): 6 Shower/Bathe Self (QC): 6 Upper Body Dressing (QC): 6 Lower Body Dressing (QC): 6 On/Off Footwear (QC): 6 Additional Goals: 2-Verbalize Understanding, 3-ImproveStrength/Sri 1=Demonstrate adherence to instructed precautions during ADL tasks. 2=Patient will verbalize/demonstrate understanding of assistive devices/modifications for ADL. 3=Patient will improve strength/tolerance for activity to enable patient to perform ADL's. OT Education/Plan Problem List/Assessment Assessment: Dependent Transfers, Impaired Self-Care Skills Pt s/p elective right TKA. Pt to benefit from skilled OT intervention for ADL training, transfers, and home safety education to increase level of independence and allow safe discharge. Discharge Recommendations Plan/Recommendations: Continue POC Treatment Plan/Plan of Care Treatment,Training & Education: Yes Patient would benefit from OT for education, treatment and training to promote independence in ADL's, mobility, safety and/or upper extremity function for ADL's. Plan of Care: ADL Retraining, Functional Mobility, UE Funct Exercise/Act Treatment Duration: May 11, 2019 Frequency: 5 times per week Estimated Hrs Per Day: .25 hour per day Rehab Potential: Good Time/GCodes Start Time: 11:07 Stop Time: 11:36 Total Time Billed (hr/min): 29 Billed Treatment Time 1 visit, EVL(15minutes), ADL(14minutes) MARTHA BECKHAM OT May 04, 2019 12:55 POS
--- NOTE | 2019-05-04 13:42 | Physical Therapy Daily Note ---
PT Daily Note-Current Subjective Patient agrees to PT at this time. Reports 8/10 knee pain but states she was recently given pills for pain. Patient would like to walk further than this morning and reports ambulation feels better now. Pain Numeric Pain Scale: 8 Location: Right Location Body Site: Knee Pain Description: Acute Mental Status Patient Orientation: Person, Place, Time, Situation Transfers SCALE: Activities may be completed with or without assistive devices. 2-Qedsiegkjf-qjejluf completes the activity by him/herself with no assistance from a helper. 5-Set-up or Clean-up Assistance-helper sets up or cleans up; patient completes activity. [place] assists only prior to or following the activity. 4-Supervision or Touching Assistance-helper provides verbal cues and/or touching/steadying and/or contact guard assistance as patient completes activity. Assistance may be provided throughout the activity or intermittently. 3-Partial/Moderate Assistance-helper does LESS THAN HALF the effort. [place] lifts, holds or supports trunk or limbs, but provides less than half the effort. 2-Substantial/Maximal Assistance-helper does MORE THAN HALF the effort. [place] lifts or holds trunk or limbs and provides more than half the effort. 0-Mqzrpdsow-xycrct does ALL the effort. Patient does none of the effort to complete the activity. Or, the assistance of 2 or more helpers is required for the patient to complete the activity. If activity was not attempted, code reason: 7-Patient Refused. 9-Not Applicable-not attempted and the patient did not perform the activity before the current illness, exacerbation or injury. 10-Not Attempted due to Environmental Limitations-(lack of equipment, weather restraints, etc.). 88-Not Attempted due to Medical Conditions or Safety Concerns. Sit to Stand (QC): 4 (SBA) Weight Bearing Right Lower Extremity: Right Weight Bearing/Tolerated Left Lower Extremity: Left Weight Bearing/Tolerated Gait Training Does the Patient Walk?: Yes Distance: 300' Walk 10 feet (QC): 4 Walk 50 ft with 2 Turns(QC): 4 Walk 150 ft (QC): 4 Gait Assistive Device: FWW SBA; slightly antalgic gait with FWW; normal pace and step through pattern Exercises Supine Ex: Heel Slides Supine Reps: 10 Seated Therapy Exercises: Long arc quads, Hip flexion Seated Reps: 10 Assessment Patient performed LE exercises in recliner without requiring assistance, demonstrating good strength. Patient able to stand from chair and ambulate SBA. Ambulated 300' with FWW with only slightly antalgic gait but demonstrating normal pace and step through pattern. Patient returned to chair at conclusion of treatment. PT Assisted Goals Assisted Goals PT Bottom Cementer Goals Time Frame: May 11, 2019 Roll Left & Right (QC): 6 Sit to Lying (QC): 6 Lying-Sitting on Side/Bed(QC): 6 Sit to Stand (QC): 6 Chair/Lac-kf-Xculy Xfer(QC): 6 Toilet Transfer (QC): 6 Car Transfer (QC): 6 Does the Patient Walk: Yes Walk 10 feet (QC): 6 Walk 50ft with 2 Turns (QC): 6 Walk 150 ft (QC): 6 Walking 10ft on Uneven Surface: 6 1 Step (curb) (QC): 4 4 Steps (QC): 4 12 Steps (QC): 88 Picking up an Object (QC): 88 Does the Pt use WC or Scooter?: No Type: Manual Type: Manual PT Plan Treatment/Plan Treatment Plan: Continue Plan of Care Treatment Plan: Bed Mobility, Education, Functional Activity Sri, Functional Strength, Gait, Safety, Therapeutic Exercise, Transfers Treatment Duration: May 11, 2019 Frequency: 11 times per week Estimated Hrs Per Day: .25 hour per day Patient and/or Family Agrees t: Yes Time/GCodes Time In: 1314 Time Out: 1324 Total Billed Treatment Time: 10 Total Billed Treatment 1 visit EX 10min DHARA QUEEN WAREHOUSE PULLER May 04, 2019 13:42 POS
--- NOTE | 2019-05-04 14:27 | OPERATIVE REPORT ---
DATE OF SERVICE: 05/03/2019 PREOPERATIVE DIAGNOSIS: Primary osteoarthritis, right knee. POSTOPERATIVE DIAGNOSIS: Primary osteoarthritis, right knee. PROCEDURE: Right total knee arthroplasty. SURGEON: Roxanne Nelson DO AQUACULTURE DIRECTOR: CAM Larose SURGICAL STRAIGHT KNIFE MACHINE CUTTER DUTIES: Christopher Ritter, surgical elastic knitter hand frame was utilized throughout the entire procedure for patient positioning, soft tissue retraction, assistance in placement of total knee implants, wound closure, dressing application and the patient transfer. ANESTHESIA: General with femoral and genicular nerve block. ESTIMATED BLOOD LOSS: 300 mL. COMPLICATIONS: None. OPERATIVE TIME: Please see anesthesia report. INDICATIONS AND FINDINGS: The patient is a 69-year-old female seen with chief complaint of progressive right knee pain, nonresponsive to conservative treatment. The patient was taken to surgery where a total knee arthroplasty was performed on the right without complication. Utilizing the [employer] Netsmart Technologiesguard total knee system with a press fit 65 mm femoral component, a cemented 71 mm fixed I-beam tibial component, a 34 mm cemented 3-pronged all polyethylene standard patellar component with an 11 mm anterior stabilized tibial bearing implant. [place] bone cement was utilized. PROCEDURE IN DETAIL: The patient was seen by anesthesia preoperatively and under ultrasound guidance, a femoral genicular nerve block was performed on the right to decrease postoperative pain and decreased amount of medication required during the surgical procedure. The patient was transported to the operating room where general inhalation anesthetic was administered. A well-padded pneumatic tourniquet was placed about the upper aspect of the right thigh. A ChloraPrep and sterile drape of the right lower extremity was performed. The right leg was elevated, exsanguinated and the tourniquet was inflated to 300 mmHg pressure. An anterior longitudinal midline incision was made. Incision was deepened through a medial parapatellar incision. The patella was subluxed laterally. Osteophytes from the distal femur were removed with a bone rongeur. A supervising airplane pilot hole was then drilled in the distal femur and intramedullary laine was inserted utilizing a 5 degree valgus cutting angle. A distal femoral cutting guide was assembled and a distal femoral osteotomy was completed. The distal femur was sized to a 65 mm femoral component, a 4-way cutting block was assembled. Anterior, posterior and chamfer cuts of the distal femur were made. The tibia was subluxed anteriorly. Remnants of the medial and lateral menisci as well as the anterior cruciate ligament were excised. A supervising airplane pilot hole was then drilled in the proximal tibia. An intramedullary laine was inserted measuring off the exposed bone over the proximal medial tibia. A proximal tibial cutting guide was assembled and a proximal tibial osteotomy was completed. With additional osteophyte removal of the medial femoral condyle an additional soft tissue subperiosteal dissection medially the knee could be fully extended with a 10 mm gap sizer. Osteophytes from the patellar rim were removed with a bone rongeur. The posterior aspect of patella was resected through a cutting guide and drilled through the drill guide. Provisional components were inserted. The knee was cycled through a range of motion. Rotation of the tibial component was noted and marked on the proximal tibia. The proximal tibia was then broached to accept the I-beam stem portion of the tibial implant. The bony surfaces were irrigated extensively with normal saline solution. [place] bone cement was then mixed. This was pressurized in the proximal tibia. The tibial component was cemented in place. The femoral component was press fit in place. The patellar component was cemented in place and held with a clamp. Excess cement was removed. The tourniquet was released. Hemostasis was obtained with electrocautery. The provisional tibial bearing implant was removed. There was a slight instability in mid-range flexion and a 11 mm anterior stabilized tibial bearing implant was inserted. This corrected the mid-range instability with no instability in full flexion and full extension of the knee obtained. The knee was placed in 90 degrees of flexion. The medial retinaculum was closed with multiple interrupted uemebb-fu-pzans sutures of #1 Vicryl reinforced with a running suture of #1 Stratafix. The subcutaneous tissues were closed with 0 and 2-0 Vicryl suture. The skin was closed with stainless steel erna and Adaptic Neosporin bulky dressing was placed above the right knee. The patient was awakened and was transported to postoperative recovery with anesthesia personnel present in satisfactory condition. Job ID: [id number] DocumentID: [id number] Dictated Date: 05/04/2019 10:53:18 Counter Hand Date: 05/04/2019 14:27:02 Dictated By: ROXANNE NELSON DO
[2019-05-04] MEDS: ENOXAPARIN 40 MG/0.4 ML (LOVENOX) SYR SC SCH (15:05)
[2019-05-04] MEDS: traZODone 50 MG (DESYREL) TAB PO SCH (20:09)
[2019-05-04] MEDS: SENNA W/DOCUSATE (SENOKOT S) TABLET PO SCH (20:09)
[2019-05-05 04:05] VITALS: BP 122/62
[2019-05-05 06:05] LABS: HEMOGLOBIN 9.8 G/DL (11.5-16.0); RED CELL DISTRIBUTION WIDTH 15.1 % (10.0-14.5); WHITE BLOOD COUNT 6.3 10^3/uL (4.3-11.0)
[2019-05-05] MEDS: ACETAMINOPHEN 500 MG TAB (TYLENOL) PO SCH ×3 (06:28→17:10)
[2019-05-05] MEDS: LEVOTHYROXINE 25 MCG (LEVOTHROID) TAB PO SCH (06:28)
[2019-05-05] MEDS: LEVOTHYROXINE 112 MCG (LEVOTHROID) TAB PO SCH (06:28)
[2019-05-05] MEDS: KCL 10 MEQ TAB (MICRO K) PO SCH (06:28)
[2019-05-05 07:01] LABS: BUN/CREATININE RATIO 25; CALCIUM 8.7 MG/DL (8.5-10.1); CARBON DIOXIDE 24 MMOL/L (21-32); CHLORIDE 107 MMOL/L (98-107); CREATININE SERUM 0.77 MG/DL (0.60-1.30); GFR ESTIMATED > 60; GLUCOSE 118 MG/DL (70-105); POTASSIUM 3.6 MMOL/L (3.6-5.0); SODIUM 144 MMOL/L (135-145)
--- NOTE | 2019-05-05 07:11 | Discharge Inst-Skilled Nursing ---
Discharge Inst-Skilled NF Reconcile Patient Problems Problems Reviewed?: Yes Patient Instructions Patient Problems: Right knee primary OA s/p right TKA Goal: independence with ADL's Patient Instructions: daily physical therapy to assist with ambulation and treat ROM CPM machine 6 hrs per day, advance as tolerated polar care to right knee bilateral CARMELLA hose keep incision covered until there is no drainage intermittent elevation for swelling WBAT with walker f/u with Dr. Calloway in 2-3 weeks when discharged from IRF, arrange home healthcare physical therapy daily x 3 weeks Consult/Follow Up/Orders Follow Up Appt.: 2-3 weeks Skilled NF Admit to: Certification (SNF) I certify that SNF services are required to be given on an inpatient basis because of the above named patient's need for assisted care on a continuing basis for the conditions(s) for which he/she was receiving inpatient hospital services prior to his/her transfer to the SNF. Alf Facility Order: Nursing Services, Baggage Smasher-Evaluate & Treat, Physical Therapy-Evaluate & Treat Oxygen Delivery Method: NIV CPAP Discharge Diet: No Restrictions Daily Activity as Tolerated: Yes Resuscitation Status: Full Code New & Resume Previous Orders New & Resume Previous Orders daily physical therapy to assist with ambulation and treat ROM CPM machine 6 hrs per day, advance as tolerated polar care to right knee bilateral CARMELLA hose keep incision covered until there is no drainage intermittent elevation for swelling WBAT with walker f/u with Dr. Calloway in 2-3 weeks when discharged from IRF, arrange home healthcare physical therapy daily x 3 weeks Cari Moe May 05, 2019 06:57 CARI MOE APRN May 05, 2019 07:02 POS
[2019-05-05] MEDS ORDERED: HYDR-3820 PO (07:13)
[2019-05-05] MEDS ORDERED: SENN-20 PO (07:13)
--- NOTE | 2019-05-05 07:17 | Discharge Summary ---
Diagnosis/Chief Complaint Date of Admission May 03, 2019 at 08:40 Date of Discharge 05/06/2019 Discharge Date: May 06, 2019 Discharge Time: 12:00 Admission Diagnosis Admission Diagnosis Primary OA right knee s/p right TKA Discharge Diagnosis primary OA right knee s/p right TKA Reason Hospital Visit scheduled right total knee arthroplasty Discharge Summary Procedures: right total knee arthroplasty Consultations internal medicine for medical management Discharge Physical Examination Allergies: Coded Allergies: adhesive (Verified Allergy, Intermediate, RASH, 06/02/18) rash from tape from OSH postop Sulfa (Sulfonamide Antibiotics) (Verified Allergy, Unknown, 12/21/06) terbinafine (Verified Allergy, Unknown, Itching, 04/22/19) Vitals & I&Os Vital Signs Date Time Temp Pulse Resp B/P (MAP) Pulse Ox O2 Delivery O2 Flow Rate FiO2 05/05/19 23:24 37.2 83 16 133/79 (97) 95 NIV CPAP 05/05/19 08:00 2.00 General Appearance: Alert, Oriented X3 HEENT: PERRLA Respiratory: Clear to Auscultation Cardiovascular: Regular Rate Abdominal: Normal Bowel Sounds, Soft Extremities: No Clubbing, No Cyanosis Skin: No Rashes, No Breakdown Neuro: Normal Gait, Normal Speech, Normal Tone, Sensation Intact Psych/Mental Status: Mental Status NL Hospital Course Was the Problem List Reviewed?: Yes On the date of admission the patient had a right TKA. She was admitted for post operative pain control, DVT prophylaxis and IV antibiotic prophylaxis as well as therapy services. She progressed well and overall, her hospital course was uneventful. She has lack of family or home support. On POD 2 she was discharged to IRF. Pending Labs Laboratory Tests 05/06/19 05:04: Hemoglobin 9.5, Hematocrit 30 Discharge Condition at discharge good Instructions to patient/family Please see electronic discharge instructions given to patient. Discharge Medications Reviewed and agree with Discharge Medication list on patient's Discharge Instruction sheet Clinical Quality Measures DVT/VTE Risk/Contraindication: Risk Factor Score Per Nursin RFS Level Per Nursing on Admit: 4+=Very High CARI MOE APRN May 05, 2019 07:17 POS
[2019-05-05 08:00] VITALS: BP 118/74
[2019-05-05] MEDS: CARVEDILOL 6.25 MG (COREG) TAB PO SCH ×2 (08:43→20:04)
[2019-05-05] MEDS: PANTOPRAZOLE 40 MG (PROTONIX) TAB PO SCH ×2 (08:43→20:04)
[2019-05-05] MEDS: NAPROXEN 250 MG (NAPROSYN) TABLET PO SCH ×2 (08:43→17:07)
[2019-05-05] MEDS: LOSARTAN 100 MG (COZAAR) TABLET PO SCH (08:43)
[2019-05-05] MEDS: MAGNESIUM OXIDE (MAG-OX)400 MG TAB PO SCH (08:43)
[2019-05-05] MEDS: BACLOFEN 10 MG (LIORESAL) TAB PO SCH ×3 (08:43→20:04)
[2019-05-05] MEDS: GABAPENTIN 300 MG (NEURONTIN) CAP PO SCH ×4 (08:43→20:04)
[2019-05-05] MEDS: amLODIPine 5 MG (NORVASC) TAB PO SCH (08:43)
[2019-05-05] MEDS: ASPIRIN E.C. 325 MG (ECOTRIN) TABLET PO SCH (08:43)
--- NOTE | 2019-05-05 09:49 | Physical Therapy Daily Note ---
PT Daily Note-Current Subjective Patient agrees to PT at this time. Patient on CPM and polar pack. Reports "15/10" pain, soreness, and swelling. Pain Numeric Pain Scale: 10-Worst Possible Pain Location: Right Location Body Site: Knee Pain Description: Acute Mental Status Patient Orientation: Person, Place, Time, Situation Attachments: SCD's, Polar Pack Transfers SCALE: Activities may be completed with or without assistive devices. 0-Iikkernegh-rgfxmxs completes the activity by him/herself with no assistance from a helper. 5-Set-up or Clean-up Assistance-helper sets up or cleans up; patient completes activity. [place] assists only prior to or following the activity. 4-Supervision or Touching Assistance-helper provides verbal cues and/or touching/steadying and/or contact guard assistance as patient completes activity. Assistance may be provided throughout the activity or intermittently. 3-Partial/Moderate Assistance-helper does LESS THAN HALF the effort. [place] lifts, holds or supports trunk or limbs, but provides less than half the effort. 2-Substantial/Maximal Assistance-helper does MORE THAN HALF the effort. [place] lifts or holds trunk or limbs and provides more than half the effort. 8-Nufvkduoo-oyfbwr does ALL the effort. Patient does none of the effort to complete the activity. Or, the assistance of 2 or more helpers is required for the patient to complete the activity. If activity was not attempted, code reason: 7-Patient Refused. 9-Not Applicable-not attempted and the patient did not perform the activity before the current illness, exacerbation or injury. 10-Not Attempted due to Environmental Limitations-(lack of equipment, weather restraints, etc.). 88-Not Attempted due to Medical Conditions or Safety Concerns. Roll Left & Right (QC): 6 Sit to Lying (QC): 6 Lying to Sitting/Side of Bed(Q: 6 Sit to Stand (QC): 6 Weight Bearing Right Lower Extremity: Right Weight Bearing/Tolerated Left Lower Extremity: Left Weight Bearing/Tolerated Gait Training Does the Patient Walk?: Yes Distance: 400' Walk 10 feet (QC): 6 Walk 50 ft with 2 Turns(QC): 6 Walk 150 ft (QC): 6 Gait Assistive Device: FWW Independent ambulation; slight antalgic gait, reciprocal pattern Exercises Supine Ex: Heel Slides, Straight leg raise Supine Reps: 10 Seated Therapy Exercises: Long arc quads Seated Reps: 10 Assessment Patient independent in all bed mobility, transfers, and ambulation. Completed toilet transfer independently. Patient ambulated 400' with FWW independently, requiring short standing rest break custodial through. Patient able to complete seated and supine exercises reps, demonstrating good strength. Patient encouraged to ambulate on own in room and hallway throughout day. Patient in bed with CPM at 95 deg flexion and polar pack at conclusion of treatment. PT Shelter Goals Shelter Goals PT Shelter Goals Time Frame: May 11, 2019 Roll Left & Right (QC): 6 Sit to Lying (QC): 6 Lying-Sitting on Side/Bed(QC): 6 Sit to Stand (QC): 6 Chair/Osq-nv-Uvyvb Xfer(QC): 6 Toilet Transfer (QC): 6 Car Transfer (QC): 6 Does the Patient Walk: Yes Walk 10 feet (QC): 6 Walk 50ft with 2 Turns (QC): 6 Walk 150 ft (QC): 6 Walking 10ft on Uneven Surface: 6 1 Step (curb) (QC): 4 4 Steps (QC): 4 12 Steps (QC): 88 Picking up an Object (QC): 88 Does the Pt use WC or Scooter?: No Type: Manual Type: Manual PT Plan Treatment/Plan Treatment Plan: Continue Plan of Care Treatment Plan: Bed Mobility, Education, Functional Activity Sri, Functional Strength, Gait, Safety, Therapeutic Exercise, Transfers Treatment Duration: May 11, 2019 Frequency: 11 times per week Estimated Hrs Per Day: .25 hour per day Patient and/or Family Agrees t: Yes Time/GCodes Time In: 919 Time Out: 942 Total Billed Treatment Time: 23 Total Billed Treatment 1 visit EX 10min FA 13min KELSI JERONIMO PT May 05, 2019 09:49 POS
[2019-05-05] MEDS: FLUTICASONE NASAL SPRAY (FLONASE) 16 GM BTL NS SCH ×2 (11:04→20:04)
[2019-05-05] MEDS: HYDROcodone/APAP 10 MG/325 MG (LORTAB) TAB PO PRN ×3 (11:05→20:04)
[2019-05-05 12:00] VITALS: BP 114/68
--- NOTE | 2019-05-05 13:09 | Occupational Ther Daily Note ---
OT Current Status-Daily Note Subjective Pt alert, lying in bed. Pt agrees to therapy. Nrsg has given pt pain meds prior to getting shower. Mental Status/Objective Patient Orientation: Person, Place, Time, Situation ADL-Treatment Supine to EOB, mod I. Pt ambulated to bathroom using FWW with SBA. Transferred to toilet supervision using grabbars and FWW. Pt manipulated clothing and completed own hygiene using FWW and grabbars. Assist required to doff sock off of R foot, pt able to doff rest of clothing for shower. Pt transferred into shower with SBA using FWW, shower bench and grabbars. SBA in stance to cleanse buttocks/young area, sat for all other areas using shower bench, assist given to thoroughly cleanse R foot. Pt able to dry all areas with SBA. Pt donned upper body and lower body clothing after set up by self. Reported to nrsg that CARMELLA hose needed to be applied. Pt stood at sink to complete oral care by self. After therapy, pt sitting in recliner with call light/phone in reach. All needs met in room. Therapy Code Descriptions/Definitions Functional [place] Measure: 0=Not Assessed/NA 4=Minimal Assistance 1=Total Assistance 5=Supervision or Setup 2=Maximal Assistance 6=Modified [place] 3=Moderate Assistance 7=Complete IndependenceSCALE: Activities may be completed with or without assistive devices. 3-Lpyvzdaikv-fehvizc completes the activity by him/herself with no assistance from a helper. 5-Set-up or Clean-up Assistance-helper sets up or cleans up; patient completes activity. [place] assists only prior to or following the activity. 4-Supervision or Touching Assistance-helper provides verbal cues and/or touching/steadying and/or contact guard assistance as patient completes activity. Assistance may be provided throughout the activity or intermittently. 3-Partial/Moderate Assistance-helper does LESS THAN HALF the effort. [place] lifts, holds or supports trunk or limbs, but provides less than half the effort. 2-Substantial/Maximal Assistance-helper does MORE THAN HALF the effort. [place] lifts or holds trunk or limbs and provides more than half the effort. 7-Tsqgzibvh-ukzzyr does ALL the effort. Patient does none of the effort to complete the activity. Or, the assistance of 2 or more helpers is required for the patient to complete the activity. If activity was not attempted, code reason: 7-Patient Refused. 9-Not Applicable-not attempted and the patient did not perform the activity before the current illness, exacerbation or injury. 10-Not Attempted due to Environmental Limitations-(lack of equipment, weather restraints, etc.). 88-Not Attempted due to Medical Conditions or Safety Concerns. Eating (QC): 6 (Pt demonstrates ability to complete meal set up and use regular utensils to eat.) Oral Hygiene (QC): 6 Shower/Bathe Self (QC): 3 Upper Body Dressing (QC): 5 Lower Body Dressing (QC): 4 (footwear (QC) 3) Toileting Hygiene (QC): 4 Toilet Transfer (QC): 4 OT Retirement Goals Retirement Goals Time Frame: May 11, 2019 Eating (QC): 6 Oral Hygiene (QC): 6 Toileting Hygiene (QC): 6 Shower/Bathe Self (QC): 6 Upper Body Dressing (QC): 6 Lower Body Dressing (QC): 6 On/Off Footwear (QC): 6 Additional Goals: 2-Verbalize Understanding, 3-ImproveStrength/Sri 1=Demonstrate adherence to instructed precautions during ADL tasks. 2=Patient will verbalize/demonstrate understanding of assistive devices/modifications for ADL. 3=Patient will improve strength/tolerance for activity to enable patient to perform ADL's. OT Education/Plan Problem List/Assessment Assessment: Impaired Self-Care Skills Pt s/p elective right TKA. Pt to benefit from skilled OT intervention for ADL training, transfers, and home safety education to increase level of independence and allow safe discharge. Discharge Recommendations Plan/Recommendations: Continue POC Treatment Plan/Plan of Care Patient would benefit from OT for education, treatment and training to promote independence in ADL's, mobility, safety and/or upper extremity function for ADL's. Plan of Care: ADL Retraining, Functional Mobility, UE Funct Exercise/Act Treatment Duration: May 11, 2019 Frequency: 5 times per week Estimated Hrs Per Day: .25 hour per day Rehab Potential: Good Time/GCodes Start Time: 11:15 Stop Time: 12:00 Total Time Billed (hr/min): 45 Billed Treatment Time 1 visit-ADL 3 (45 min) KRYSTIAN RILEY May 05, 2019 13:09 POS
--- NOTE | 2019-05-05 15:04 | Physical Therapy Daily Note ---
PT Daily Note-Current Subjective Patient agrees to PT. Reports she has been up in her room some since morning PT. States she was given pain pill recently and pain is feeling better at 9/10. Pain Numeric Pain Scale: 9 Location: Right Location Body Site: Knee Pain Description: Acute Mental Status Patient Orientation: Person, Place, Time, Situation Attachments: Polar Pack Transfers SCALE: Activities may be completed with or without assistive devices. 7-Tqmxomgrnv-dwyjcud completes the activity by him/herself with no assistance from a helper. 5-Set-up or Clean-up Assistance-helper sets up or cleans up; patient completes activity. [place] assists only prior to or following the activity. 4-Supervision or Touching Assistance-helper provides verbal cues and/or touching/steadying and/or contact guard assistance as patient completes activity. Assistance may be provided throughout the activity or intermittently. 3-Partial/Moderate Assistance-helper does LESS THAN HALF the effort. [place] lifts, holds or supports trunk or limbs, but provides less than half the effort. 2-Substantial/Maximal Assistance-helper does MORE THAN HALF the effort. [place] lifts or holds trunk or limbs and provides more than half the effort. 2-Vrjsafdob-baczft does ALL the effort. Patient does none of the effort to complete the activity. Or, the assistance of 2 or more helpers is required for the patient to complete the activity. If activity was not attempted, code reason: 7-Patient Refused. 9-Not Applicable-not attempted and the patient did not perform the activity before the current illness, exacerbation or injury. 10-Not Attempted due to Environmental Limitations-(lack of equipment, weather restraints, etc.). 88-Not Attempted due to Medical Conditions or Safety Concerns. Sit to Stand (QC): 6 Weight Bearing Right Lower Extremity: Right Weight Bearing/Tolerated Left Lower Extremity: Left Weight Bearing/Tolerated Gait Training Does the Patient Walk?: Yes Distance: 450' Walk 10 feet (QC): 6 Walk 50 ft with 2 Turns(QC): 6 Walk 150 ft (QC): 6 Gait Assistive Device: FWW Slight antalgic gait, otherwise normal pace and pattern; independent Assessment Patient able to perform all mobility and transfer tasks independently. Patient ambulated 425' independently with FWW without requiring rest break. Patient returned to bed at conclusion of treatment with polar pack on. PT Ross Carrier Driver Goals Residential Goals PT Residential Goals Time Frame: May 11, 2019 Roll Left & Right (QC): 6 Sit to Lying (QC): 6 Lying-Sitting on Side/Bed(QC): 6 Sit to Stand (QC): 6 Chair/Ztu-cy-Ucflj Xfer(QC): 6 Toilet Transfer (QC): 6 Car Transfer (QC): 6 Does the Patient Walk: Yes Walk 10 feet (QC): 6 Walk 50ft with 2 Turns (QC): 6 Walk 150 ft (QC): 6 Walking 10ft on Uneven Surface: 6 1 Step (curb) (QC): 4 4 Steps (QC): 4 12 Steps (QC): 88 Picking up an Object (QC): 88 Does the Pt use WC or Scooter?: No Type: Manual Type: Manual PT Plan Treatment/Plan Treatment Plan: Continue Plan of Care Treatment Plan: Bed Mobility, Education, Functional Activity Sri, Functional Strength, Gait, Safety, Therapeutic Exercise, Transfers Treatment Duration: May 11, 2019 Frequency: 11 times per week Estimated Hrs Per Day: .25 hour per day Patient and/or Family Agrees t: Yes Time/GCodes Time In: 1317 Time Out: 1330 Total Billed Treatment Time: 13 Total Billed Treatment 1 visit FA 13min KELSI JERONIMO PT May 05, 2019 15:04 POS
[2019-05-05] MEDS: ENOXAPARIN 40 MG/0.4 ML (LOVENOX) SYR SC SCH (15:31)
[2019-05-05 16:21] VITALS: BP 132/66
[2019-05-05] MEDS: traZODone 50 MG (DESYREL) TAB PO SCH (20:04)
[2019-05-05] MEDS: SENNA W/DOCUSATE (SENOKOT S) TABLET PO SCH (20:04)
[2019-05-05 20:23] VITALS: BP 137/62
[2019-05-05 23:24] VITALS: BP 133/79
[2019-05-06] MEDS: ACETAMINOPHEN 500 MG TAB (TYLENOL) PO SCH ×3 (00:19→11:16)
[2019-05-06 05:54] LABS: HEMOGLOBIN 9.5 G/DL (11.5-16.0)
[2019-05-06] MEDS: LEVOTHYROXINE 112 MCG (LEVOTHROID) TAB PO SCH (06:00)
[2019-05-06] MEDS: HYDROcodone/APAP 10 MG/325 MG (LORTAB) TAB PO PRN ×2 (06:01→11:16)
[2019-05-06] MEDS: NAPROXEN 250 MG (NAPROSYN) TABLET PO SCH (06:01)
[2019-05-06] MEDS: LEVOTHYROXINE 25 MCG (LEVOTHROID) TAB PO SCH (06:01)
[2019-05-06] MEDS: KCL 10 MEQ TAB (MICRO K) PO SCH (06:01)
--- NOTE | 2019-05-06 06:52 | Progress Note ---
Subjective Date Seen by a Provider: May 05, 2019 Time Seen by a Provider: 07:00 Subjective/Events-last exam Doing well without complaints, planning on going to IRF today Objective Exam Vital Signs Date Time Temp Pulse Resp B/P (MAP) Pulse Ox O2 Delivery O2 Flow Rate FiO2 05/05/19 23:24 37.2 83 16 133/79 (97) 95 NIV CPAP 05/05/19 20:23 36.8 85 20 137/62 (87) 94 Room Air 05/05/19 20:03 Room Air 05/05/19 16:21 36.8 88 20 132/66 (88) 93 Room Air 05/05/19 12:00 36.2 80 18 114/68 (83) 95 Room Air 05/05/19 09:00 95 Nasal Cannula 05/05/19 08:00 36.6 88 18 118/74 (89) 95 Nasal Cannula 2.00 05/05/19 07:10 NIV CPAP I & O 05/06/19 07:00 Intake Total 2220 ml Output Total 0 ml Balance 2220 ml Capillary Refill : Less Than 3 Seconds General Appearance: No Apparent Distress Extremity: Normal Capillary Refill, Normal Inspection, Non Tender, No Calf Tenderness, No Pedal Edema Neurologic/Psychiatric: Alert, Oriented x3, No Motor/Sensory Deficits Skin: Normal Color, Warm/Dry Results Lab Laboratory Tests 05/06/19 05:04: Hemoglobin 9.5L, Hematocrit 30L Assessment/Plan Assessment/Plan Assess & Plan/Chief Complaint A: s/p right TKA P: Continue current treatment, DC to IRF today or skilled tomorrow or Thursday Clinical Quality Measures Admission Status Admission Dx Primary OA right knee s/p right TKA DVT/VTE Risk/Contraindication: Risk Factor Score Per Nursin RFS Level Per Nursing on Admit: 4+=Very High CARI MOE APRN May 06, 2019 06:52 POS
--- NOTE | 2019-05-06 07:02 | Progress Note ---
Subjective Date Seen by a Provider: May 06, 2019 Time Seen by a Provider: 06:56 Subjective/Events-last exam patient doing well at this time, pod 3 s/p right TKA. She was told she is doing too well and therefore could not be transferred to rehab. She still feels she cannot care for herself. She does not have a spouse at home and does not feel comfortable going home with home healthcare. Objective Exam Vital Signs Date Time Temp Pulse Resp B/P (MAP) Pulse Ox O2 Delivery O2 Flow Rate FiO2 05/05/19 23:24 37.2 83 16 133/79 (97) 95 NIV CPAP 05/05/19 20:23 36.8 85 20 137/62 (87) 94 Room Air 05/05/19 20:03 Room Air 05/05/19 16:21 36.8 88 20 132/66 (88) 93 Room Air 05/05/19 12:00 36.2 80 18 114/68 (83) 95 Room Air 05/05/19 09:00 95 Nasal Cannula 05/05/19 08:00 36.6 88 18 118/74 (89) 95 Nasal Cannula 2.00 05/05/19 07:10 NIV CPAP I & O 05/06/19 07:00 Intake Total 2220 ml Output Total 0 ml Balance 2220 ml Capillary Refill : Less Than 3 Seconds General Appearance: No Apparent Distress Extremity: Normal Capillary Refill, No Calf Tenderness Neurologic/Psychiatric: Alert, Oriented x3, No Motor/Sensory Deficits, Normal Mood/Affect Skin: Normal Color, Warm/Dry Results Lab Laboratory Tests 05/06/19 05:04: Hemoglobin 9.5L, Hematocrit 30L Assessment/Plan Assessment/Plan Assess & Plan/Chief Complaint A: s/p right TKA P: [facility], follow up in [address] Calloway's office. When discharged from skilled she will need home healthcare set up 5x/week x 3 weeks. Clinical Quality Measures Admission Status Admission Dx Primary OA right knee s/p right TKA DVT/VTE Risk/Contraindication: Risk Factor Score Per Nursin RFS Level Per Nursing on Admit: 4+=Very High CARI MOE APRN May 06, 2019 07:02 POS
[2019-05-06] MEDS ORDERED: POLYETHYLENE GLYCOL 17 GM (MIRALAX) PACK PO ONE (08:00)
[2019-05-06] MEDS: GABAPENTIN 300 MG (NEURONTIN) CAP PO SCH ×2 (08:23→13:05)
[2019-05-06] MEDS: amLODIPine 5 MG (NORVASC) TAB PO SCH (08:23)
[2019-05-06] MEDS: CARVEDILOL 6.25 MG (COREG) TAB PO SCH (08:23)
[2019-05-06] MEDS: MAGNESIUM OXIDE (MAG-OX)400 MG TAB PO SCH (08:23)
[2019-05-06] MEDS: PANTOPRAZOLE 40 MG (PROTONIX) TAB PO SCH (08:23)
[2019-05-06] MEDS: LOSARTAN 100 MG (COZAAR) TABLET PO SCH (08:23)
[2019-05-06] MEDS: FLUTICASONE NASAL SPRAY (FLONASE) 16 GM BTL NS SCH (08:24)
[2019-05-06 08:27] VITALS: BP 143/62
[2019-05-06] MEDS: BACLOFEN 10 MG (LIORESAL) TAB PO SCH ×2 (08:29→13:05)
[2019-05-06] MEDS: ASPIRIN E.C. 325 MG (ECOTRIN) TABLET PO SCH (08:29)
--- NOTE | 2019-05-06 10:33 | Physical Therapy Daily Note ---
PT Daily Note-Current Subjective Patient agrees to PT at this time. Reports pain is significantly reduced from yesterday. States she does not feel confident going home on her own yet so planning to transfer to [facility] for a few days to build strength and confidence. Pain Numeric Pain Scale: 3 Location: Right Location Body Site: Knee Pain Description: Acute Mental Status Patient Orientation: Person, Place, Time, Situation Transfers SCALE: Activities may be completed with or without assistive devices. 5-Wdipgtqmnz-hqrlucw completes the activity by him/herself with no assistance from a helper. 5-Set-up or Clean-up Assistance-helper sets up or cleans up; patient completes activity. [place] assists only prior to or following the activity. 4-Supervision or Touching Assistance-helper provides verbal cues and/or touching/steadying and/or contact guard assistance as patient completes activity. Assistance may be provided throughout the activity or intermittently. 3-Partial/Moderate Assistance-helper does LESS THAN HALF the effort. [place] lift s, holds or supports trunk or limbs, but provides less than half the effort. 2-Substantial/Maximal Assistance-helper does MORE THAN HALF the effort. [place] lifts or holds trunk or limbs and provides more than half the effort. 7-Ipgnifhay-dupqeh does ALL the effort. Patient does none of the effort to complete the activity. Or, the assistance of 2 or more helpers is required for the patient to complete the activity. If activity was not attempted, code reason: 7-Patient Refused. 9-Not Applicable-not attempted and the patient did not perform the activity before the current illness, exacerbation or injury. 10-Not Attempted due to Environmental Limitations-(lack of equipment, weather restraints, etc.). 88-Not Attempted due to Medical Conditions or Safety Concerns. Roll Left & Right (QC): 6 Lying to Sitting/Side of Bed(Q: 6 Sit to Stand (QC): 6 Weight Bearing Right Lower Extremity: Right Weight Bearing/Tolerated Left Lower Extremity: Left Weight Bearing/Tolerated Gait Training Does the Patient Walk?: Yes Distance: 450' Walk 10 feet (QC): 6 Walk 50 ft with 2 Turns(QC): 6 Walk 150 ft (QC): 6 Gait Assistive Device: FWW Normal pace and pattern Exercises Supine Ex: Heel Slides, Straight leg raise Supine Reps: 10 Seated Therapy Exercises: Long arc quads Seated Reps: 10 Assessment Patient independent in all bed mobility, transfers, and ambulation. Performed exercises well, demonstrating good strength. Ambulated 450' with FWW with normal pace and pattern. Patient seated in recliner at conclusion of treatment and pat ient and nursing informed she can be up ad naye. 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 Marine [employer] Dock Attendant Goals 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 Time Frame: May 11, 2019 Roll Left & Right (QC): 6 Sit to Lying (QC): 6 Lying-Sitting on Side/Bed(QC): 6 Sit to Stand (QC): 6 Chair/Xib-yq-Kfesz Xfer(QC): 6 Toilet Transfer (QC): 6 Car Transfer (QC): 6 Does the Patient Walk: Yes Walk 10 feet (QC): 6 Walk 50ft with 2 Turns (QC): 6 Walk 150 ft (QC): 6 Walking 10ft on Uneven Surface: 6 1 Step (curb) (QC): 4 4 Steps (QC): 4 12 Steps (QC): 88 Picking up an Object (QC): 88 Does the Pt use WC or Scooter?: No Type: Manual Type: Manual PT Plan Treatment/Plan Treatment Plan: Continue Plan of Care Treatment Plan: Bed Mobility, Education, Functional Activity Sri, Functional Strength, Gait, Safety, Therapeutic Exercise, Transfers Treatment Duration: May 11, 2019 Frequency: 11 times per week Estimated Hrs Per Day: .25 hour per day Patient and/or Family Agrees t: Yes Time/GCodes Time In: 853 Time Out: 910 Total Billed Treatment Time: 17 Total Billed Treatment 1 visit FA 17min KELSI JERONIMO PT May 06, 2019 10:32 POS
[2019-05-06 14:00] VITALS: BP 143/62
== END 2019-05-06 14:42 | DRG 470 ==
LOC: 4TH 08:40 → SURG 08:41 → 4TH 14:00 → EDPENDDISDT 05-06 12:00
PROVIDERS: ADMIT Orthopaedic Surgery; ATTEND Orthopaedic Surgery
PROC: 0SRC0J9 Replacement of Right Knee Joint with Synthetic Substitute, Cemented, Open Approach (ICD-10-PCS; principal; 2019-05-03 10:48)
DX: M17.11 Unilateral primary osteoarthritis, right knee (principal); F41.9 Anxiety disorder, unspecified; E11.9 Type 2 diabetes mellitus without complications; I10 Essential (primary) hypertension; E78.00 Pure hypercholesterolemia, unspecified; K21.9 Gastro-esophageal reflux disease without esophagitis; F32.9 Major depressive disorder, single episode, unspecified; E03.9 Hypothyroidism, unspecified; F40.240 Claustrophobia; K59.00 Constipation, unspecified; G47.30 Sleep apnea, unspecified; E55.9 Vitamin D deficiency, unspecified; Z86.73 Personal history of transient ischemic attack (TIA), and cerebral infarction without residual deficits; Z90.710 Acquired absence of both cervix and uterus; Z87.442 Personal history of urinary calculi
CPT/HCPCS: 36415; 73560; 80048; 85014; 85018; 85027; 86850; 86900; 86901; 94664

== ENCOUNTER → 2019-11-18 | Outpatient (CLI) | payer MEDICARE, OTHER ==
[~2019-11-18] MED LIST changes: +ACHYD1T PO; -CETI10TA20 PO; +CETI10TA21 PO; -HYDR-3820 PO; +PYRI100T10 PO; -PYRI100T2 PO; -SENN-141 PO; +SENN-20 PO; +SENN-234 PO; -TRAZ-222 PO; +TRZ50T PO
== END ==
LOC: LABNPT 09:00
PROVIDERS: ATTEND Orthopaedic Surgery
DX: Z01.812 Encounter for preprocedural laboratory examination (principal); Z20.828 Contact with and (suspected) exposure to other viral communicable diseases; M17.10 Unilateral primary osteoarthritis, unspecified knee
CPT/HCPCS: 87635

== ENCOUNTER → 2020-02-24 | Outpatient (CLI) | payer MEDICARE, OTHER ==
[~2020-02-24] MED LIST changes: +ASCO100024 PO; -ASCO10006 PO; +ASPI-1238 PO; -ASPI-983 PO
--- NOTE | 2020-02-24 14:47 | Diagnostic Imaging Report ---
INDICATION: Routine screening. Comparison is made with prior mammogram 05/25/2017 and 04/09/2016. 2-D and 3-D bilateral screening mammography was performed with CAD. Both breasts are heterogeneously dense, limiting the sensitivity of mammography. There are scattered benign calcifications throughout both breasts. A biopsy clip upper outer right breast is again noted. No discrete mass or malignant-appearing microcalcifications are seen. Axillae are unremarkable. IMPRESSION: BI-RADS Category 2 No mammographic features suspicious for malignancy are identified. ACR BI-RADS Category 2: Benign findings. Result letter will be mailed to the patient. Note: At least 10% of breast cancer is not imaged by mammography. Dictated by: Dictated on workstation # [id number]
== END ==
LOC: RAD 09:46
PROVIDERS: ATTEND Family Medicine
DX: Z12.31 Encounter for screening mammogram for malignant neoplasm of breast (principal); Z20.828 Contact with and (suspected) exposure to other viral communicable diseases
CPT/HCPCS: 77063; 77067

== ENCOUNTER 2020-08-21 22:42 | Emergency (ER) | payer MEDICARE, OTHER ==
[~2020-08-21 22:42] MED LIST changes: +AMLO-250 PO; +AMLO-251 PO; -AMLO10TA7 PO; -AMLO5TAB9 PO; -CETI10TA21 PO; +CETI10TA49 PO; -LISI10TA2 PO; +LISI10TA25 PO; -PANT40TA3 PO; +PANT40TA52 PO
[2020-08-22] MEDS ORDERED: PRD20T PO (01:54)
--- NOTE | 2020-08-22 01:54 | ED Hip Pain/Injury ---
General Chief Complaint: Hip/Pelvic Problems Stated Complaint: L SIDE HIP PAIN Nursing Triage Note: TO ED VIA POV AND AMBULATORY TO TRIAGE. PT STATES LEFT HIP PAIN X2 WEEKS. DENIES INJURY. STATES WHEN WAS GETTING UP OUT OF CHAIR TURNED HIP AND NOW HAS INCREASED PAIN. Source: patient Exam Limitations: no limitations History of Present Illness Date Seen by Provider: Aug 22, 2020 Time Seen by Provider: 01:35 Initial Comments Patient is a 70-year-old female who presents to the emergency department today with a chief complaint of left hip and low back pain. Patient states approximately 2 weeks ago she was trying to pull on her underwear when she twisted and almost fell. She had an onset acutely of some low back pain at that time. Patient states she had been doing okay until this evening when she was getting up from a chair at yarsanism and had worsening pain. Patient denies any traumas, falls or injury. She states she takes baclofen at home and tramadol and the medication has not been helping. She states the pain radiates down her left leg. She denies any problems with bowel or bladder incontinence. She denies any numbness, tingling or weakness. Patient states that moving around makes her pain worse nothing has really made it any better. She denies any other associated illnesses or injuries. Review of systems reviewed and negative except as stated above. Timing/Duration: this evening Severity: moderate Location: hip (L) Method of Injury: twisted Modifying Factors: Worse With Movement Associated Symptoms: denies symptoms Allergies and Home Medications Allergies Coded Allergies: adhesive (Verified Allergy, Intermediate, RASH, 06/02/18) rash from tape from OSH postop Sulfa (Sulfonamide Antibiotics) (Verified Allergy, Unknown, 12/21/06) terbinafine (Verified Allergy, Unknown, Itching, 04/22/19) Home Medications Amlodipine Besylate 5 Mg Tablet, 5 MG PO DAILY, (Reported) LAST FILLED #90 09-13-18 Aspirin 81 Mg Tablet.dr, 81 MG PO DAILY, (Reported) Atorvastatin Calcium 40 Mg Tablet, 40 MG PO DAILY, (Reported) Baclofen 10 Mg Tablet, 10 MG PO TID, (Reported) Calcium Carbonate/Vitamin D3 1 Each Tablet, 1 TAB PO DAILY, (Reported) Carvedilol 6.25 Mg Tablet, 6.25 MG PO BID, (Reported) Cetirizine HCl 10 Mg Tablet, 10 MG PO DAILY, (Reported) Cholecalciferol (Vitamin D3) 5,000 Unit Capsule, 5,000 UNIT PO DAILY, (Reported) Ferrous Gluconate 256 Mg Tablet, 256 MG PO DAILY, (Reported) Gabapentin 300 Mg Capsule, 300 MG PO QID, (Reported) Hydrocodone Bit/Acetaminophen 1 Each Tablet, 1 EA PO Q4H PRN for PAIN-MODERATE (5-7) Prescribed by: CARI MOE on 05/05/19712 Levothyroxine Sodium 137 Mcg Tablet, 137 MCG PO DAILY, (Reported) Losartan Potassium 100 Mg Tablet, 100 MG PO DAILY, (Reported) Magnesium Oxide 400 Mg Tablet, 400 MG PO DAILY, (Reported) Multivitamin 1 Each Tablet, 1 TAB PO DAILY, (Reported) Naproxen 500 Mg Tablet, 500 MG PO BID, (Reported) [place] 3 Polyunsat Fatty Acids 1,000 Mg Cap, 1,000 MG PO DAILY, (Reported) Pantoprazole Sodium 40 Mg Tablet.dr, 40 MG PO BID, (Reported) Potassium Chloride 10 Meq Tab.er.prt, 10 MEQ PO DAILY, (Reported) Sennosides/Docusate Sodium 1 Each Tablet, 2 EA PO BID Prescribed by: CARI MOE on 05/05/19712 Tramadol HCl/Acetaminophen 1 Each Tablet, 2 TAB PO TID, (Reported) Trazodone HCl 50 Mg Tablet, 50 MG PO HS, (Reported) Triamcinolone Acetonide 10.8 Ml [place], 1 SPRAY NSEACH BID, (Reported) Ubidecarenone 100 Mg Capsule, 100 MG PO DAILY, (Reported) Vitamin B Complex 1 Each Capsule, 1 CAP PO DAILY, (Reported) Patient Home Medication List Home Medication List Reviewed: Yes Review of Systems Constitutional: see HPI EENTM: no symptoms reported Respiratory: no symptoms reported Cardiovascular: no symptoms reported Gastrointestinal: no symptoms reported Genitourinary: no symptoms reported : No Musculoskeletal: joint pain (Left hip, low back) Skin: no symptoms reported Psychiatric/Neurological: No Symptoms Reported All Other Systems Reviewed Negative Unless Noted: Yes Past Zysubtm-Grfgeo-Ofliwg Hx Patient Social History Alcohol Use: Denies Use Smoking Status: Never a Smoker 2nd Hand Smoke Exposure: No Recent Infectious Disease Expo: No Recent Hopitalizations: No Immunizations Up To Date Tetanus Booster (TDap): Unknown PED Vaccines UTD: Yes Date of Influenza Vaccine: Apr 18, 2019 Seasonal Allergies Seasonal Allergies: Yes Past Medical History Surgeries: Yes (carpal tunnel, bilat feet sx, back x2, open lapartomy) Abdominal, Adenoidectomy, Hysterectomy, Orthopedic, Tonsillectomy Respiratory: Yes Sleep Apnea Currently Using CPAP: Yes Currently Using BIPAP: No Cardiac: Yes (anxiety induced angina) 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, Hypertension Neurological: No Reproductive Disorders: Yes ("I WAS INFERTILE.") Female Reproductive Disorders: Denies 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 Sexually Transmitted Disease: No HIV/AIDS: No Genitourinary: Yes Kidney Stones Gastrointestinal: Yes Gastroesophageal Reflux, Irritable Bowel Musculoskeletal: Yes (S.I.joint disorder) Degenerate Disk Disease, Arthritis, Chronic Back Pain Endocrine: Yes Hypothyroidsim HEENT: Yes Cataract Loss of Vision: Denies Hearing Impairment: Bilateral Hearing Aide Cancer: No Psychosocial: Yes Anxiety, Depression Integumentary: No Blood Disorders: No (post surgery anemia) Adverse Reaction/Blood Tranf: No Family Medical History Arthritis 19 MOTHER G8 SISTER Cardiovascular disease 19 MOTHER Deafness or hearing loss 19 FATHER Diabetes mellitus 19 MOTHER G8 SISTER FH: lupus 19 FATHER FH: skin cancer 19 MOTHER Hypercholesterolemia 19 MOTHER Hypertension 19 MOTHER Myocardial infarction 19 MOTHER Osteoporosis 19 MOTHER Prostate cancer G8 BROTHER G8 BROTHER Respiratory disorder 19 FATHER 19 MOTHER No Family History of: Drug abuse Heart Disease, Cancer, COPD, Hypertension Physical Exam Vital Signs Vital Signs - First Documented 08/21/20 23:41 Temp 37.0 Pulse 102 Resp 18 B/P (MAP) 157/81 (106) O2 Delivery Room Air Capillary Refill : Less Than 3 Seconds Height, Weight, BMI Height: 5'7.00" Weight: 201lbs. 1.0oz. 91.875274dh; 31.17 BMI Method:Stated General Appearance: No Apparent Distress, WD/WN HEENT: PERRL/EOMI Neck: Normal Inspection Cardiovascular: Regular Rate, Rhythm Respiratory: Lungs Clear, Normal Breath Sounds, No Accessory Muscle Use, No Respiratory Distress Back: Normal Inspection, Other (Tenderness over the left SI joint, radiating down into the left hip and across the low back; majority of tenderness is at the SI joint however on the left) Extremity: Other (Negative straight leg raise bilaterally; normal strength and sensation) Neurologic/Psychiatric: Alert, Oriented x3, No Motor/Sensory Deficits, Normal Mood/Affect Skin: Normal Color, Warm/Dry Progress/Results/Core Measures Results/Orders Vital Signs/I&O 08/21/20 23:41 Temp 37.0 Pulse 102 Resp 18 B/P (MAP) 157/81 (106) O2 Delivery Room Air Blood Pressure Mean: 106 Departure Impression Primary Impression: Low back pain Qualified Codes: M54.42 - Lumbago with sciatica, left side Disposition: HOME, SELF-CARE Condition: Stable Departure-Patient Inst. Decision time for Depature: 01:52 Referrals: CHRISTNIA BLACK MD (PCP/Family) Primary Care Physician Patient Instructions: Low Back Pain (DC) Add. Discharge Instructions: Drink plenty of fluids to stay well-hydrated. Continue to take your tramadol and baclofen as prescribed. I have given you a prescription for prednisone. Please take this daily with food. Please call your primary care physician in follow-up early next week. Return to the emergency room if you have worsening pain especially associated with any episodes of incontinence, numbness, weakness or any other emergent concerning symptoms. Scripts Prednisone (Prednisone) 20 Mg Tab 40 MG PO DAILY, #10 TAB 0 Refills Prov: GENOVEVA COLLINS MD 08/22/20 GENOVEVA COLLINS MD Aug 22, 2020 01:54
[2020-08-22] MEDS ORDERED: ORPHENADRINE 60 MG/2 ML (NORFLEX) AMP (ED ONLY) IM ONE (02:00)
[2020-08-22 02:25] VITALS: BP 139/79
== END 2020-08-22 02:25 | disposition home or self-care (01) ==
LOC: EDUNIT# 22:42 → ER 22:43
DX: M54.42 Lumbago with sciatica, left side (principal); I10 Essential (primary) hypertension; E78.00 Pure hypercholesterolemia, unspecified; K21.9 Gastro-esophageal reflux disease without esophagitis; E89.0 Postprocedural hypothyroidism; F41.9 Anxiety disorder, unspecified; F32.9 Major depressive disorder, single episode, unspecified; Z88.2 Allergy status to sulfonamides; Z88.3 Allergy status to other anti-infective agents; Z91.048 Other nonmedicinal substance allergy status; Z79.82 Long term (current) use of aspirin; Z79.899 Other long term (current) drug therapy; Z79.890 Hormone replacement therapy; X50.1XXA Overexertion from prolonged static or awkward postures, initial encounter
CPT/HCPCS: 99284

== ENCOUNTER → 2021-04-01 | Outpatient (CLI) | payer MEDICARE, OTHER ==
[~2021-04-01] MED LIST changes: +PRD20T PO
--- NOTE | 2021-04-01 18:26 | Diagnostic Imaging Report ---
EXAM: Digital mammogram, bilateral screening. COMPARISON: This study was compared to the prior exam of 02/24/2020 and 05/25/2017. At this time, there are no current complaints. The fibroglandular tissue in both breasts is heterogeneously dense. This does limit the sensitivity of this exam. In the interval since the prior study a roughly 1 cm spiculated asymmetry has developed in the 12 o'clock position of the left breast at middle depth. There is some associated architectural distortion in this area and this finding is worrisome for malignancy. I would recommend that a compression view of this area be obtained in the CC and MLO projections for further study. Ultrasound should also be performed. The overall appearance of the breast has not changed significantly otherwise. IMPRESSION: 1. Additional mammographic views and ultrasound of the left breast would be recommended for further study. ACR category 0 ACR BI-RADS Category 0: Incomplete. (Needs additional imaging evaluation). Result letter will be mailed to the patient. Note: At least 10% of breast cancer is not imaged by mammography. Dictated by: Dictated on workstation # [id number]
== END ==
LOC: RAD 10:49
PROVIDERS: ATTEND Nurse Practitioner Family
DX: Z12.31 Encounter for screening mammogram for malignant neoplasm of breast (principal)
CPT/HCPCS: 77063; 77067

== ENCOUNTER → 2021-04-03 | Outpatient (CLI) | payer MEDICARE, OTHER ==
--- NOTE | 2021-04-03 15:05 | Diagnostic Imaging Report ---
INDICATION: Left breast density. Patient presents for additional views. COMPARISON: Correlation is made with the screening study from 04/01/2021. TECHNIQUE: Unilateral left 2D and 3D diagnostic mammography was performed. This included spot compression CC and ML views as well as conventional 90 degree lateral views. FINDINGS: Additional views confirm the presence of a slightly irregular density in the upper slightly outer left breast 4 to 5 cm from the nipple. There are some areas of architectural distortion and spiculation. This is highly concerning for breast neoplasm. There are also benign calcifications throughout the left breast. IMPRESSION: Spiculated lesion in the upper slightly outer left breast 4-5 cm from the nipple, concerning for breast malignancy. Further evaluation with ultrasound is recommended and will be performed today. ACR BI-RADS Category 0: Incomplete. (Needs additional imaging evaluation). Result letter will be mailed to the patient. Note: At least 10% of breast cancer is not imaged by mammography. Dictated by: Dictated on workstation # [id number]
--- NOTE | 2021-04-03 17:29 | Diagnostic Imaging Report ---
INDICATION: Left breast density. COMPARISON: Correlation is made with diagnostic mammogram earlier the same day and screening mammogram from 04/01/2021. EXAMINATION: Sonographic interrogation of the upper left breast was performed. FINDINGS: There is a hypoechoic solid appearing mass at the 12:00 location, 4 cm from the nipple, measuring 13 mm x 10 mm x 12 mm. This demonstrates somewhat lobulated irregular margins. There is some vascularity along the margins but no internal vascularity. There is some posterior acoustic shadowing present. This likely accounts for the density noted mammographically. No other mass is seen. IMPRESSION: Hypoechoic mass at the 12:00 location of the left breast, 4 cm from the nipple, likely accounting for the mammographic density. This is concerning for a small breast malignancy. Tissue sampling is recommended. This would be amenable to ultrasound-guided core biopsy. ACR BI-RADS Category 4: Suspicious abnormality. Result letter will be mailed to the patient. Note: At least 10% of breast cancer is not imaged by mammography. Dictated by: Dictated on workstation # [id number]
== END ==
LOC: RAD 13:28
PROVIDERS: ATTEND Nurse Practitioner Family
DX: N63.20 Unspecified lump in the left breast, unspecified quadrant (principal)
CPT/HCPCS: 76642; 77065; G0279

== ENCOUNTER → 2021-04-08 | Outpatient (CLI) | payer MEDICARE, OTHER ==
[~2021-04-08] VITALS: Ht 170.2 cm; Wt 93.2 kg
[~2021-04-08] MED LIST changes: +LIDOCAINE 1% INJ 20 ML 20 ML VIAL INJ ONE
--- NOTE | 2021-04-08 12:33 | Diagnostic Imaging Report ---
INDICATION: Left breast mass. Patient presents for ultrasound-guided biopsy. DETAILS OF THE PROCEDURE: The patient was brought to the ultrasound suite and placed on the table in the supine position. Ultrasound imaging of the left breast was performed to evaluate for an appropriate entry site. The left breast was then prepped and draped in the usual sterile fashion. A small amount of 1% lidocaine was utilized for local anesthesia. A total of four core biopsies was obtained of the hypoechoic mass at the 12 o'clock location of the left breast 4 cm from the nipple utilizing a 14-gauge Achieve needle. A marker clip was then deployed. Hemostasis was obtained using manual compression. The patient tolerated the procedure well and was sent for a post procedure mammogram in satisfactory condition. IMPRESSION: Successful ultrasound-guided core biopsy of the hypoechoic mass at the 12 o'clock location of the left breast 4 cm from the nipple. Pathology results are currently pending. Dictated by: Dictated on workstation # [id number]
--- NOTE | 2021-04-08 12:33 | Diagnostic Imaging Report ---
INDICATION: Left breast mass, status post biopsy. TECHNIQUE: Unilateral left 2D CC and ML mammography was performed post biopsy. There is a marker clip within the irregular lesion in the upper left breast 12 o'clock location, status post biopsy. IMPRESSION: Marker clip placement appears appropriate status post ultrasound-guided left breast biopsy. Dictated by: Dictated on workstation # [id number]
== END ==
LOC: RAD 08:54
PROVIDERS: ATTEND Family Medicine
DX: N63.25 Unspecified lump in the left breast, overlapping quadrants (principal)
CPT/HCPCS: 19083; 77065; A4648; G0279

== ENCOUNTER → 2021-04-09 | Outpatient (CLI) | payer MEDICARE, OTHER ==
[~2021-04-09] MED LIST changes: -LIDOCAINE 1% INJ 20 ML 20 ML VIAL INJ ONE
== END ==
LOC: CARD 08:30
PROVIDERS: ATTEND Physician Assistant
DX: I10 Essential (primary) hypertension (principal); I25.10 Atherosclerotic heart disease of native coronary artery without angina pectoris
CPT/HCPCS: 93306

== ENCOUNTER 2021-04-12 08:56 | Outpatient (RCR) | payer MEDICARE, OTHER ==
[~2021-04-12 08:56] MED LIST changes: -POTA10TA36 PO; +POTA10TA37 PO
[2021-04-12 10:10] LABS: BASOPHILS % (AUTO) 1 % (0-10); EOSINOPHILS # (AUTO) 0.2 10^3/uL (0.0-0.3); EOSINOPHILS % (AUTO) 3 % (0-10); HEMATOCRIT 41 % (35-52); HEMOGLOBIN 13.5 g/dL (11.5-16.0); LYMPHOCYTES # (AUTO) 0.8 10^3/uL (1.0-4.0); LYMPHOCYTES % (AUTO) 16 % (12-44); MEAN CORPUSCULAR HEMOGLOBIN 31 pg (25-34); MEAN CORPUSCULAR HGB CONC 33 g/dL (32-36); MEAN CORPUSCULAR VOLUME 93 fL (80-99); MEAN PLATELET VOLUME 10.2 fL (9.0-12.2); MONOCYTES # (AUTO) 0.5 10^3/uL (0.0-1.0); MONOCYTES % (AUTO) 10 % (0-12); NEUTROPHILS # (AUTO) 3.6 10^3/uL (1.8-7.8); NEUTROPHILS % (AUTO) 71 % (42-75); PLATELET COUNT 198 10^3/uL (130-400); WHITE BLOOD COUNT 5.1 10^3/uL (4.3-11.0)
[2021-04-12 10:40] LABS: ALBUMIN 4.5 GM/DL (3.2-4.5); BILIRUBIN,TOTAL 0.7 MG/DL (0.1-1.0); CALCIUM 9.8 MG/DL (8.5-10.1); CREATININE SERUM 0.75 MG/DL (0.60-1.30); POTASSIUM 3.9 MMOL/L (3.6-5.0); TOTAL PROTEIN 7.2 GM/DL (6.4-8.2)
[2021-04-26] MEDS ORDERED: ANAS1TAB50 PO (11:14)
[2021-04-26] MEDS ORDERED: GABA300C PO (11:14)
[2021-04-26] MEDS ORDERED: CHOL500050 PO (11:14)
[2021-04-26] MEDS ORDERED: LEVO150T6 PO (11:14)
[2021-05-02] MEDS ORDERED: HYDR-3817 PO (08:56)
[2021-05-20] MEDS ORDERED: CHOL200074 PO (09:41)
[2021-05-20] MEDS ORDERED: FLUT16SP22 NS (09:42)
[2021-05-20] MEDS ORDERED: AMLO-251 PO (09:43)
[2021-05-20] MEDS ORDERED: HYDR-3817 PO (09:44)
[2021-05-20] MEDS ORDERED: CYAN100T37 PO (09:46)
[2021-05-20] MEDS ORDERED: PYRI100T10 PO (09:47)
[2021-05-20] MEDS ORDERED: MELA1TAB27 PO (09:47)
[2021-05-20] MEDS ORDERED: MULT-974 PO (09:48)
[2021-05-20] MEDS ORDERED: [UNRECOGNIZED DRUG - CODE] PO (09:49)
[2021-05-20] MEDS ORDERED: ACET-2267 PO (09:50)
[2021-05-20] MEDS ORDERED: PROP10DR2 OP (09:52)
[2021-05-20] MEDS ORDERED: DICL20GE TP (09:53)
[2021-05-20] MEDS ORDERED: DICL100G13 TP (09:58)
[2021-05-20] MEDS ORDERED: L.AC1CAP10 PO (09:58)
[2021-05-20] MEDS ORDERED: FERR-84 PO (10:05)
[2021-05-20] MEDS ORDERED: CEPH500C PO (10:10)
[2021-05-20] MEDS ORDERED: AMOX1TAB11 PO (10:10)
== END 2021-06-14 | disposition home or self-care (01) ==
LOC: ONC 08:56
PROVIDERS: ATTEND Internal Medicine Hematology & Oncology
DX: C50.912 Malignant neoplasm of unspecified site of left female breast (principal); I10 Essential (primary) hypertension; E03.9 Hypothyroidism, unspecified; Z90.710 Acquired absence of both cervix and uterus; Z96.653 Presence of artificial knee joint, bilateral
CPT/HCPCS: 80053; 85025; G0463; 99214

== ENCOUNTER 2021-04-25 05:40 | Outpatient (CLI) | payer MEDICARE, OTHER ==
[~2021-04-25] VITALS: Ht 170.2 cm; Wt 91.8 kg
[~2021-04-25 05:40] MED LIST changes: +POTA10TA36 PO; -POTA10TA37 PO
[2021-04-26] MEDS ORDERED: GABA300C PO (11:14)
[2021-04-26] MEDS ORDERED: ANAS1TAB50 PO (11:14)
[2021-04-26] MEDS ORDERED: LEVO150T6 PO (11:14)
[2021-04-26] MEDS ORDERED: CHOL500050 PO (11:14)
== END 2021-04-26 11:28 | disposition home or self-care (01) ==
LOC: PREOP 05:40
PROVIDERS: ATTEND Surgery
DX: Z01.818 Encounter for other preprocedural examination (principal)

== ENCOUNTER 2021-05-02 06:00 | Day surgery (SDC) | payer MEDICARE, OTHER ==
--- NOTE | 2021-04-22 07:09 | HISTORY AND PHYSICAL ---
DATE OF SERVICE: DATE OF ADMISSION: 04/30/2021. ATTENDING PRIMARY CARE PHYSICIAN: Subha Hardy MD HISTORY: The patient is a 71-year-old female known to us. She underwent a recent yearly mammogram and a lesion was identified of the left breast at the 12 o'clock position approximately 4 cm from the nipple-areolar complex. This was 1 cm in size and spiculated. She then underwent an ultrasound-guided biopsy, which did come back as an invasive ductal cancer, which was estrogen and progesterone receptor positive and HER-2 negative. Upon examination, there are no palpable lesions of bilateral breasts as well as no axillary adenopathy. She states that she began menses at around age 13 and menopause at age 39. She has never been and giving no live childbirths. She has been getting yearly mammograms in her 30s and a lesion of the right breast was identified approximately 15 years ago and this was biopsied and found to be benign. She did take oral contraceptive pills for approximately 2 years. She does not report any abnormal nipple discharge as well as no breast asymmetries or skin dimpling. PAST MEDICAL HISTORY: Degenerative joint disease, history of endometriosis, hypertension, hypercholesterolemia, gastroesophageal reflux disease, hypothyroid. PAST SURGICAL HISTORY: Left total knee arthroplasty 11/2018, right total knee arthroplasty 04/2018, lumbar vertebrae ORIF 2015 and 2017, bilateral carpal tunnel release , bilateral bunionectomy 80. ALLERGIES: SULFA, LAMISIL. MEDICATIONS: Amlodipine, atorvastatin, baclofen, carvedilol, gabapentin, levothyroxine, losartan, naproxen, Protonix, potassium, tramadol, aromatase inhibitor. SOCIAL HISTORY: Negative smoke, negative alcohol. FAMILY HISTORY: Paternal grandmother, breast cancer. Two brothers with prostate cancer. VITAL SIGNS: Blood pressure 158/83. Current weight 201.9 pounds at 5 feet 7 inches. REVIEW OF SYSTEMS: Well-nourished female, in no acute distress. She is not experiencing any shortness of breath or difficulty breathing. No chest pain, palpitations, diaphoresis. No nausea, vomiting. No diarrhea or constipation. No fever, chills, no recent inadvertent weight loss. All other review of systems negative. PHYSICAL EXAMINATION: CHEST: Clear. Good breath sounds bilaterally. HEART: Regular, no murmurs. EXTREMITIES: No lower extremity edema, negative Homans sign. HEENT: No scleral icterus. NECK: No cervical lymphadenopathy. ABDOMEN: Soft, nontender, nondistended. BREASTS: No palpable lesions bilateral breasts, no skin dimpling, no asymmetries. No axillary or supraclavicular adenopathy. ASSESSMENT AND PLAN: A 71-year-old female with a 1 cm biopsy-proven invasive ductal cancer of the right breast at approximately the 12 o'clock position, 4 cm from the nipple areolar complex, which is estrogen and progesterone receptor positive and HER-2 negative. We will proceed with scheduling her for a needle localization as well as lymphoscintigraphy and proceed with a needle localization breast lumpectomy as well as a sentinel node biopsy. Job ID: [id number] DocumentID: [id number] Dictated Date: 04/16/2021 16:22:43 Medical Staff Physician Date: 04/16/2021 17:38:04 Dictated By: MAXIMILIANO CASAS MD
[2021-05-02] VITALS (10 sets, daily range): BP systolic 138–167; BP diastolic 57–99
[~2021-05-02] VITALS: Ht 170.2 cm; Wt 91.8 kg
[~2021-05-02 06:00] MED LIST changes: +ANAS1TAB50 PO; +CHOL500050 PO; +GABA300C PO; +LEVO150T6 PO; -POTA10TA36 PO; +POTA10TA37 PO
[2021-05-02] MEDS ORDERED: ceFAZolin 2 GM IV Premixed 50 ML IV ONE (06:15)
[2021-05-02] MEDS ORDERED: HYDR-3817 PO (08:56)
--- NOTE | 2021-05-02 08:56 | Discharge Inst-Surgical ---
D/C Lap Instructions-KIDO Reconcile Patient Problems Problems Reviewed?: Yes New, Converted, or Re-Newed RX: RX on Chart Follow Up Appt in 2 weeks Activity as tolerated No driving for 24 hours No driving while on pain medications Incentive Spirometry use every 2 hours while awake Regular Diet Symptoms to Report: Fever over 101 degree F, Nausea/Vomiting Infection Signs and Symptoms to report: Increased redness, Foul odor of wound, Increased drainage Bathing instructions: May shower Operative Area Clean/Dry; Keep incision clean/dry If any problems/questions: Contact your physician or go to Emergency Room PHILLY RODRÍGUEZ APRN May 02, 2021 08:56
--- NOTE | 2021-05-02 08:57 | Progress Note-Pre Operative ---
Pre-Operative Progress Note H&P Reviewed The H&P was reviewed, patient examined and no changes noted. Date Seen by Provider: May 02, 2021 Time Seen by Provider: 08:55 Date H&P Reviewed: May 02, 2021 Time H&P Reviewed: 08:50 Pre-Operative Diagnosis: Left breast cancer PHILLY RODRÍGUEZ APRN May 02, 2021 08:57
[2021-05-02] MEDS ORDERED: ONDANSETRON 4 MG/2 ML (SDV) Z0FRAN IVP PRN ×2 (09:00→14:45)
[2021-05-02] MEDS ORDERED: morphine INJ 10 MG/ML 1ML (SYR OR VIAL) IVP PRN (09:00)
[2021-05-02] MEDS ORDERED: ACETAMINOPHEN 325 MG TABLET PO PRN (09:00)
[2021-05-02] MEDS ORDERED: HYDROcodone/APAP 5 MG/325 MG (LORTAB) TAB PO ONE (09:00)
[2021-05-02] MEDS ORDERED: LIDOCAINE 1% INJ 20 ML 20 ML VIAL INJ ONE (09:00)
[2021-05-02] MEDS ORDERED: LIDOCAINE/EPI 1%-1:200,000 (XYLOCAINE) 30 ML VIAL ONE (09:32)
[2021-05-02] MEDS ORDERED: METHYLENE BLUE 0.5% (PROVAYBLUE) 50 mg/10 ml vial IV ONE (09:32)
--- NOTE | 2021-05-02 09:47 | Diagnostic Imaging Report ---
INDICATION: Left breast carcinoma, status post ultrasound-guided wire localization. Unilateral left 2-D CC and ML mammography was performed. A hookwire extends through lesion at the 12:00 location of the left breast. IMPRESSION: Hookwire placement through the lesion at the 12:00 location of the left breast. Dictated by: Dictated on workstation # [id number]
[2021-05-02] MEDS: LACTATED RINGERS 1,000 ML IV PRN ×2 (09:50→13:40)
--- NOTE | 2021-05-02 09:54 | Diagnostic Imaging Report ---
INDICATION: Left breast carcinoma. Patient presents for ultrasound-guided hookwire localization. Patient brought to the sonographic suite and placed on table in the supine position. Ultrasound imaging of the left breast was performed to evaluate appropriate entry site. Left breast was then prepped and draped in usual sterile fashion. Small amount of 1% lidocaine was utilized for local anesthesia. A localization needle was advanced through the hypoechoic mass at the 12:00 location of the left breast, 4 cm from the nipple. Hookwire was then placed through the needle and the needle was removed. Hookwire was affixed to the patient's skin. Patient tolerated the procedure well and was sent for post procedure mammogram in satisfactory condition. IMPRESSION: Successful ultrasound guided hookwire localization of the hypoechoic nodule 12:00 location left breast, 4 cm from the nipple. Dictated by: Dictated on workstation # [id number]
[2021-05-02] MEDS ORDERED: proPOfol 200 MG/20 ML (DIPRIVAN) VIAL IV ONE (10:46)
[2021-05-02] MEDS ORDERED: ONDANSETRON 4 MG/2 ML (SDV) Z0FRAN ONE (10:46)
[2021-05-02] MEDS ORDERED: LIDOCAINE PF 2% 5 ML (XYLOCAINE) VIAL ONE (10:46)
[2021-05-02] MEDS ORDERED: fentaNYL INJ 100 MCG/2 ML AMP ONE (10:46)
--- NOTE | 2021-05-02 10:48 | Diagnostic Imaging Report ---
INDICATION: Left breast carcinoma. A total of 1.1 mCi of technetium 99m sulfur colloid was injected in 4 separate aliquots in the left periareolar distribution. Imaging over the breast was then performed. Images demonstrate migration of activity to the left axilla. This was marked on patient's skin. Patient was sent to preop. IMPRESSION: Left breast lymphoscintigraphy for identification of sentinel nodes. Dictated by: Dictated on workstation # [id number]
--- NOTE | 2021-05-02 13:19 | Progress Note-Post Operative ---
Post-Operative Progess Note Surgeon (s)/Certified Caregiver (s) Surgeon MAXIMILIANO CASAS MD Certified Caregiver: patricia miranda FLY FISHING GUIDE Pre-Operative Diagnosis Left breast cancer Post-Operative Diagnosis same Procedure & Operative Findings Date of Procedure 05/02/21 Procedure Performed/Findings subdermal injection, left breast lumpectomy and deep axillary sentinel node bx. Anesthesia Type get Estimated Blood Loss Estimated blood loss (mL): minimal Specimens/Packing Specimens Removed left breast lumpectomy and sentinel node MAXIMILIANO CASAS MD May 02, 2021 13:19
--- NOTE | 2021-05-02 14:09 | OPERATIVE REPORT ---
DATE OF SERVICE: 05/02/2021 ATTENDING PRIMARY CARE PHYSICIAN: Subha Hardy MD PREOPERATIVE DIAGNOSIS: Left breast infiltrating ductal cancer. POSTOPERATIVE DIAGNOSIS: Left breast infiltrating ductal cancer. PROCEDURE: Left needle localization breast lumpectomy, sentinel lymph node biopsy, subdermal injection. SURGEON: Maximiliano Casas MD WATER RESOURCE PROJECT MANAGER: Alfred Barbosa APRN ANESTHESIA: General laryngeal mask airway with local. ESTIMATED BLOOD LOSS: Minimal. FINDINGS: [place] lymph node count 67,321 with a background 264, which is less than 10% and indicative of the sentinel lymph node. DISPOSITION: The patient tolerated the procedure well. INDICATIONS: The patient is a 71-year-old female who recently underwent a mammogram and the lesion was identified in the left breast at the 12 o'clock position approximately 4 cm from the nipple areolar complex. The lesion was 1 cm in size and spiculated. She underwent an ultrasound-guided biopsy, which did come back as an invasive ductal cancer, which was estrogen progesterone receptor positive and HER-2/dl negative. Upon examination, there were no palpable lesions of the bilateral breasts as well as no axillary adenopathy. She states that she began menses at around age 13 and menopause at age 39. She has never been and giving no live childbirths. She has been getting yearly mammograms in her 30s and lesion of the right breast was identified 15 years ago and biopsied and found to be benign. She did take oral contraceptive pills for approximately 2 years. She does not report any abnormal nipple discharge as well as no breast asymmetries or skin dimpling. She does report a remote family history of breast cancer with her paternal grandmother having the disease. DESCRIPTION OF PROCEDURE: The patient was brought to the operating room, laid supine on the table. After adequate IV pain and sedative medications and general laryngeal mask airway intubation, the chest, neck and upper extremity were prepped and draped in standard surgical fashion. Before this, subdermal injection of isosulfan blue was performed at the nipple areolar complex in 4 quadrants. This was then massaged in for 15 minutes. We first proceeded with sentinel node biopsy using the radioactive probe. The anterior axillary line was then anesthetized using 0.5% Marcaine with epinephrine and a skin incision made using a 15 blade. Subcutaneous tissue was then dissected down using electrocautery. The clavipectoral fascia was then opened using electrocautery. We then proceeded with blunt dissection, identifying the sentinel lymph node by the blue dyed lymph node as well as using the probe as well. The lymph node was then completely dissected using electrocautery with visualization of good hemostasis. The lymph node count was 67,327 with a background of 264, which was less than 10% of the sentinel lymph node consistent with the sentinel lymph node. This was sent to pathology and was found to be negative. The lumpectomy was then performed by anesthetizing the skin above the wire along the glabellar lines using 0.5% Marcaine with epinephrine and a curvilinear skin incision made using a 15 blade. The subcutaneous tissue was then dissected using electrocautery and using a Hina clamp, the tissue around the entire wire was liberally excised using a cautery until the entire tissue around the needle was excised using electrocautery. Good hemostasis was observed. Both open incisions were then closed first approximating the subcutaneous tissue using a 3-0 Vicryl interrupted sutures. Skin was closed using 4-0 Monocryl running subcuticular suture. Wounds were then cleaned and covered with Dermabond. The patient tolerated the procedure well. We will await the final pathology results; however, discharge her home where she will be instructed to do no heavy lifting or exertion for the next two weeks and to keep the area clean and dry as well as to apply a pressure dressing along the breast to prevent seroma formation. Job ID: [id number] DocumentID: [id number] Dictated Date: 05/02/2021 13:31:02 Commercial Real Estate Paralegal Date: 05/02/2021 14:09:31 Dictated By: MAXIMILIANO CASAS MD
[2021-05-02] MEDS ORDERED: SEVOFLURANE (ULTANE) 15 ML INHAL SOLN ONE (14:28)
[2021-05-02] MEDS ORDERED: KETOROLAC 30 MG/ML VIAL ONE (14:31)
[2021-05-02] MEDS ORDERED: morphine INJ 10 MG/ML 1ML (SYR OR VIAL) IVP ONE (14:45)
[2021-05-02] MEDS ORDERED: fentaNYL INJ 100 MCG/2 ML AMP IVP ONE (14:45)
[2021-05-02] MEDS ORDERED: morphine INJ 10 MG/ML 1ML (SYR OR VIAL) ONE (14:57)
--- NOTE | 2021-05-02 15:26 | Anesthesia-General Post-Op ---
General Patient Condition Mental Status/LOC: Same as Preop Cardiovascular: Satisfactory Nausea/Vomiting: Absent Respiratory: Satisfactory Pain: Controlled Complications: Absent Post Op Complications Complications None Follow Up Care/Instructions Patient Instructions None needed. Anesthesia/Patient Condition Patient Condition Patient is doing well, no complaints, stable vital signs, no apparent adverse anesthesia problems. No complications reported per nursing. FER MCCORMICK CRNA May 02, 2021 15:25
--- NOTE | 2021-05-02 15:53 | Diagnostic Imaging Report ---
INDICATION: Left breast carcinoma, status post lumpectomy. Specimen radiograph was submitted showing the hook wire within the specimen. In addition, spiculated nodule and associated microcalcifications surround the distal aspect of nodule is located at coordinates A through D and 4 through 9. The sigmoid mass does extend all way to the margin of the specimen. IMPRESSION: Specimen radiograph does contain the hookwire and the mass. Note is made that the mass does extend near the margin of the specimen. Dictated by: Dictated on workstation # [id number]
== END 2021-05-02 17:22 ==
LOC: CARD 06:00
PROVIDERS: ATTEND Surgery
DX: C50.912 Malignant neoplasm of unspecified site of left female breast (principal); I10 Essential (primary) hypertension; I20.9 Angina pectoris, unspecified; G47.33 Obstructive sleep apnea (adult) (pediatric); K21.9 Gastro-esophageal reflux disease without esophagitis; E78.00 Pure hypercholesterolemia, unspecified; F32.A Depression, unspecified; F41.9 Anxiety disorder, unspecified; Z79.899 Other long term (current) drug therapy; Z79.890 Hormone replacement therapy; Z99.89 Dependence on other enabling machines and devices; Z83.3 Family history of diabetes mellitus; Z80.42 Family history of malignant neoplasm of prostate
CPT/HCPCS: 19285; 19301; 36430; 38525; 38900; 76098; 77065; 78195; 87081; 88307; 88342; A4648; A9541; G0279

== ENCOUNTER 2021-05-17 17:02 | Inpatient (IN) | payer MEDICARE, OTHER ==
[~2021-05-17] VITALS: Ht 170 cm; Wt 91.8 kg
[~2021-05-17 17:02] MED LIST changes: +HYDR-3817 PO
[2021-05-17 18:40] VITALS: BP 131/53
[2021-05-17] MEDS ORDERED: morphine INJ 4 MG/ML 1 ML (VIAL/SYRINGE) IVP PRN (19:00)
[2021-05-17 19:41] VITALS: BP 147/74
[2021-05-17] MEDS: NS IV 1000 ML 1,000 ML IV SCH (19:53)
[2021-05-17] MEDS: GABAPENTIN 300 MG (NEURONTIN) CAP PO SCH (19:56)
[2021-05-17] MEDS: BACLOFEN 10 MG (LIORESAL) TAB PO SCH (19:56)
[2021-05-17] MEDS: FLUTICASONE NASAL SPRAY (FLONASE) 16 GM BTL NS SCH (19:56)
[2021-05-17 20:34] LABS: BASOPHILS % (AUTO) 0 % (0-10); EOSINOPHILS # (AUTO) 0.4 10^3/uL (0.0-0.3); EOSINOPHILS % (AUTO) 5 % (0-10); HEMATOCRIT 37 % (35-52); HEMOGLOBIN 12.1 g/dL (11.5-16.0); LYMPHOCYTES # (AUTO) 1.1 10^3/uL (1.0-4.0); LYMPHOCYTES % (AUTO) 14 % (12-44); MEAN CORPUSCULAR HEMOGLOBIN 31 pg (25-34); MEAN CORPUSCULAR HGB CONC 32 g/dL (32-36); MEAN CORPUSCULAR VOLUME 95 fL (80-99); MEAN PLATELET VOLUME 10.8 fL (9.0-12.2); MONOCYTES # (AUTO) 0.6 10^3/uL (0.0-1.0); MONOCYTES % (AUTO) 8 % (0-12); NEUTROPHILS # (AUTO) 5.6 10^3/uL (1.8-7.8); NEUTROPHILS % (AUTO) 73 % (42-75); PLATELET COUNT 200 10^3/uL (130-400); WHITE BLOOD COUNT 7.8 10^3/uL (4.3-11.0)
[2021-05-17 20:44] LABS: ALBUMIN 4.2 GM/DL (3.2-4.5); POTASSIUM 3.8 MMOL/L (3.6-5.0)
[2021-05-17 20:45] LABS: CALCIUM 9.4 MG/DL (8.5-10.1)
[2021-05-17 20:46] LABS: TOTAL PROTEIN 6.9 GM/DL (6.4-8.2)
[2021-05-17 20:48] LABS: BILIRUBIN,TOTAL 0.6 MG/DL (0.1-1.0)
[2021-05-17 20:50] LABS: CREATININE SERUM 0.74 MG/DL (0.60-1.30)
[2021-05-17] MEDS: VANCOMYCIN 1 GM/NS 250 ML IVPB IV SCH ×4 (22:29→23:40)
[2021-05-17 23:57] VITALS: BP 134/68
[2021-05-18] VITALS (7 sets, daily range): BP systolic 121–151; BP diastolic 62–78
[2021-05-18] MEDS: LEVOTHYROXINE 150 MCG (LEVOTHROID) TAB PO SCH (06:22)
[2021-05-18 06:35] LABS: BASOPHILS % (AUTO) 1 % (0-10); EOSINOPHILS # (AUTO) 0.3 10^3/uL (0.0-0.3); EOSINOPHILS % (AUTO) 5 % (0-10); HEMATOCRIT 37 % (35-52); HEMOGLOBIN 12.1 g/dL (11.5-16.0); LYMPHOCYTES # (AUTO) 0.9 10^3/uL (1.0-4.0); LYMPHOCYTES % (AUTO) 15 % (12-44); MEAN CORPUSCULAR HEMOGLOBIN 30 pg (25-34); MEAN CORPUSCULAR HGB CONC 32 g/dL (32-36); MEAN CORPUSCULAR VOLUME 94 fL (80-99); MONOCYTES # (AUTO) 0.5 10^3/uL (0.0-1.0); MONOCYTES % (AUTO) 8 % (0-12); NEUTROPHILS # (AUTO) 4.7 10^3/uL (1.8-7.8); NEUTROPHILS % (AUTO) 72 % (42-75); PLATELET COUNT 190 10^3/uL (130-400); WHITE BLOOD COUNT 6.5 10^3/uL (4.3-11.0)
[2021-05-18 06:52] LABS: POTASSIUM 3.5 MMOL/L (3.6-5.0)
[2021-05-18 06:54] LABS: CALCIUM 9.3 MG/DL (8.5-10.1)
[2021-05-18 06:55] LABS: TOTAL PROTEIN 6.6 GM/DL (6.4-8.2)
[2021-05-18 06:57] LABS: BILIRUBIN,TOTAL 0.6 MG/DL (0.1-1.0)
[2021-05-18 06:59] LABS: CREATININE SERUM 0.64 MG/DL (0.60-1.30)
[2021-05-18] MEDS: NS IV 1000 ML 1,000 ML IV SCH (08:14)
[2021-05-18] MEDS: LACTOBACILLUS ACIDOPHILUS (PROBIOTIC) CAPSULE PO SCH ×3 (08:14→16:18)
[2021-05-18] MEDS: GABAPENTIN 300 MG (NEURONTIN) CAP PO SCH ×4 (08:15→20:01)
[2021-05-18] MEDS: amLODIPine 5 MG (NORVASC) TAB PO SCH (08:15)
[2021-05-18] MEDS: BACLOFEN 10 MG (LIORESAL) TAB PO SCH ×3 (08:15→20:01)
[2021-05-18] MEDS: LOSARTAN 100 MG (COZAAR) TABLET PO SCH (08:15)
[2021-05-18] MEDS: FLUTICASONE NASAL SPRAY (FLONASE) 16 GM BTL NS SCH ×2 (08:15→20:01)
[2021-05-18] MEDS: LORATADINE (CLARITIN) 10 MG TAB PO SCH (08:15)
[2021-05-18] MEDS: PANTOPRAZOLE 40 MG (PROTONIX) TAB PO SCH (08:16)
[2021-05-18] MEDS: ENOXAPARIN 40 MG/0.4 ML (LOVENOX) SYR SC SCH (08:16)
[2021-05-18] MEDS: VANCOMYCIN 1,250 MG/NS 250 ML IVPB IV SCH ×4 (11:11→22:53)
--- NOTE | 2021-05-18 11:50 | History & Physical ---
History of Present Illness History of Present Illness Reason for visit/HPI This is a 71 [address] of Dr. 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 The patient had a lumpectomy with lymph node dissection by Dr. Connell on 05/03/21 and has had wound dehiscense with erythema and has been on outpatient antibiotics. She presented to Dr. Hardy's office yesterday due to worsening redness and increased drainage from the wound. She was directly admitted for IV antibiotics, cultures and surgery consult. Date of Admission May 17, 2021 at 18:33 Date Seen by a Provider: May 18, 2021 Time Seen by a Provider: 11:45 I consulted on this patient on 05/18/21 11:45 Attending Physician Subha Hardy MD Admitting Physician Subha Hardy MD Consult Allergies and Home Medications Allergies Coded Allergies: adhesive (Verified Allergy, Intermediate, RASH, 06/02/18) rash from tape from OSH postop Sulfa (Sulfonamide Antibiotics) (Verified Allergy, Unknown, 12/21/06) terbinafine (Verified Allergy, Unknown, Itching, 04/22/19) Patient Home Medication List Home Medication List Reviewed: Yes Amlodipine Besylate (Amlodipine Besylate) 5 Mg Tablet, 5 MG PO DAILY, (Reported) Entered as Reported by: PEPPER STEWART on 06/03/18 09 Anastrozole (Arimidex) 1 Mg Tablet, 1 MG PO DAILY, (Reported) Entered as Reported by: ARMANDO JIMENEZ on 04/26/21 1114 Aspirin (Aspirin EC) 81 Mg Tablet.dr, 81 MG PO DAILY, (Reported) Entered as Reported by: PEPPER STEWART on 06/03/18 09 Atorvastatin Calcium (Atorvastatin Calcium) 40 Mg Tablet, 40 MG PO DAILY, (Reported) Entered as Reported by: PEPPER STEWART on 06/03/18 09 Baclofen (Baclofen) 10 Mg Tablet, 10 MG PO TID, (Reported) Entered as Reported by: JAROD HERNANDEZ on 06/14/17 1832 Calcium Carbonate/Vitamin D3 (Calcium 500 + D Tablet) 1 Each Tablet, 1 TAB PO DAILY, (Reported) [place]: [place] [address] Carvedilol (Carvedilol) 6.25 Mg Tablet, 6.25 MG PO BID, (Reported) Entered as Reported by: JAROD HERNANDEZ on 06/14/171831 Cetirizine HCl (Zyrtec) 10 Mg Tablet, 10 MG PO DAILY, (Reported) Entered as Reported by: PEPPER STEWART on 06/03/18916 Cholecalciferol (Vitamin D3) (Vitamin D3) 125 Mcg Capsule, 125 MCG PO DAILY, (Reported) Entered as Reported by: ARMANDO JIMENEZ on 04/26/21 1114 Ferrous Gluconate (Iron) 256 Mg Tablet, 256 MG PO DAILY, (Reported) Entered as Reported by: ARMANDO JIMENEZ on 04/22/19 1425 Gabapentin (Neurontin) 300 Mg Capsule, 300 MG PO QID, (Reported) Entered as Reported by: ARMANDO JIMENEZ on 04/26/21 1114 Hydrocodone/Acetaminophen (Hydrocodone-Acetamin 7.5-325) 1 Each Tablet, 1 EACH PO Q4H PRN for PAIN-BREAKTHROUGH Prescribed by: PHILLY RODRÍGUEZ on 05/02/21 0856 Levothyroxine Sodium (Levothyroxine Sodium) 150 Mcg Tablet, 150 MCG PO DAILY, (Reported) Entered as Reported by: ARMANDO JIMENEZ on 04/26/21 1114 Losartan Potassium (Losartan Potassium) 100 Mg Tablet, 100 MG PO DAILY, (Reported) Entered as Reported by: PPEPER STEWART on 06/03/18 09 Magnesium Oxide (Magnesium) 400 Mg Tablet, 400 MG PO DAILY, (Reported) Entered as Reported by: PEPPER STEWART on 06/03/18917 Multivitamin (Daily Vitamin Formula) 1 Each Tablet, 1 TAB PO DAILY, (Reported) Entered as Reported by: PEPPER STEWART on 06/03/18916 Naproxen (Naproxen) 500 Mg Tablet, 500 MG PO BID, (Reported) Entered as Reported by: JAROD HERNANDEZ on 06/14/171831 [place] 3 Polyunsat Fatty Acids (Fish Oil 1,000 mg Capsule) 1,000 Mg Cap, 1,000 MG PO DAILY, (Reported) Entered as Reported by: PEPPER STEWART on 06/03/18917 Pantoprazole Sodium (Protonix) 40 Mg Tablet.dr, 40 MG PO BID, (Reported) Entered as Reported by: PEPPER STEWART on 09/23/18 1307 Potassium Chloride (Potassium Chloride) 10 Meq Tab.er.prt, 10 MEQ PO DAILY, (Reported) Entered as Reported by: PEPPER STEWART on 06/03/18 09 Tramadol HCl/Acetaminophen (Tramadol-Acetaminophn 37.5-325) 1 Each Tablet, 2 TAB PO TID, (Reported) Entered as Reported by: PEPPER STEWART on 06/03/18 0911 Triamcinolone Acetonide (Nasacort) 10.8 Ml [place], 1 SPRAY NSEACH BID, (Reported) Entered as Reported by: ARMANDO JIMENEZ on 04/22/19 1425 Ubidecarenone (Co Q-10) 100 Mg Capsule, 100 MG PO DAILY, (Reported) Entered as Reported by: PEPPER STEWART on 06/03/18 09 Vitamin B Complex (Vitamin B Complex) 1 Each Capsule, 1 CAP PO DAILY, (Reported) Entered as Reported by: PEPPER STEWART on 06/03/18917 Past Zgbqbsj-Lkuplz-Qogsbz Hx Patient Social History Tobacco Use?: No Use of E-Cig and/or Vaping dev: No Substance use?: No Alcohol Use?: No Pt feels they are or have been: No Immunizations Up To Date Date of Influenza Vaccine: Mar 15, 2021 First/Initial COVID19 Vaccinat: yes Second COVID19 Vaccination Serjio: yes Tetanus Booster (TDap): Unknown Hepatitis A: Yes Hepatitis B: Yes PED Vaccines UTD: Yes Seasonal Allergies Seasonal Allergies: Yes Current Status status: No status: No Advance Directives: Yes Advance Directive Location: Home Communicates: Verbally Primary Language: Maltese Preferred Spoken Language: Maltese Is interpretation needed?: No Sensory deficits: Hearing impairment Additional sensory deficits: hearing aides but hears well without Implanted or Applied Medical D: None Past Medical History Surgeries: Abdominal, Adenoidectomy, Hysterectomy, Orthopedic, Tonsillectomy Sleep Apnea Currently Using CPAP: Yes Currently Using BIPAP: No 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, Hypertension 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 Sexually Transmitted Disease: No HIV/AIDS: No Kidney Stones Gastroesophageal Reflux, Irritable Bowel Degenerate Disk Disease, Arthritis, Chronic Back Pain Hypothyroidsim Cataract Loss of Vision: Denies Hearing Impairment: Bilateral Hearing Aide Breast Anxiety, Depression Blood Disorders: No (post surgery anemia) Adverse Reaction/Blood Tranf: No Family Medical History Arthritis 19 MOTHER G8 SISTER Cardiovascular disease 19 MOTHER Deafness or hearing loss 19 FATHER Diabetes mellitus 19 MOTHER G8 SISTER FH: lupus 19 FATHER FH: skin cancer 19 MOTHER Hypercholesterolemia 19 MOTHER Hypertension 19 MOTHER Myocardial infarction 19 MOTHER Osteoporosis 19 MOTHER Prostate cancer G8 BROTHER G8 BROTHER Respiratory disorder 19 FATHER 19 MOTHER No Family History of: Drug abuse Heart Disease, Cancer, COPD, Hypertension Review of Systems Constitutional: diaphoresis EENTM: No see HPI, No no symptoms reported, No ear discharge, No hearing loss, No ear pain, No blurred vision, No double vision, No eye pain, No tearing, No vision loss, No dental problems, No hoarseness, No mouth pain, No mouth swelling, No epistaxis, No nose congestion, No nose pain, No throat pain, No throat swelling, No other Respiratory: No no symptoms reported, No see HPI, No cough, No dyspnea on ex ertion, No hemoptysis, No orthopnea, No phlegm, No short of breath, No stridor, No wheezing, No other Cardiovascular: No no symptoms reported, No see HPI, No chest pain, No edema, No Hx of Intervention, No palpitations, No syncope, No vascular heart diseas, No other Gastrointestinal: No RUQ, No LUQ, No RLQ, No LLQ, No no symptoms reported, No see HPI, No abdominal pain, No constipation, No diarrhea, No dysphagia, No hematemesis, No heartburn, No jaundice, No loss of appetite, No melena, No nausea, No vomiting, No other Genitourinary: No no symptoms reported, No see HPI, No decreased output, No discharge, No dysuria, No frequency, No hematuria, No hesitancy, No incontinence, No nocturia, No pain, No other Musculoskeletal: back pain Skin: other (left breast wound with worsening redness and drainage from wound) Psychiatric/Neurological: Anxiety, Weakness Physical Exam Vital Signs Vital Signs - First Documented 05/17/21 18:40 Temp 37.2 Pulse 78 Resp 18 B/P (MAP) 131/53 (79) Pulse Ox 96 O2 Delivery Room Air Capillary Refill : Height, Weight, BMI Height: 5'7.00" Weight: 201lbs. 1.0oz. 91.034850as; 31.76 BMI Method:Stated General Appearance: No Apparent Distress HEENT: Normal ENT Inspection Neck: Supple Respiratory: Lungs Clear Cardiovascular: Regular Rate, Rhythm Gastrointestinal: Normal Bowel Sounds, Non Tender, Soft Rectal: Deferred Back: No CVA Tenderness Extremity: Non Tender, No Calf Tenderness, No Pedal Edema Neurologic/Psychiatric: Alert, Oriented x3 Skin: Warm/Dry, Erythema (to left upper breast around dehisced wound with serous drainage on gauze pad) Comments Laboratory Tests 05/17/21 20:14: White Blood Count 7.8, Red Blood Count 3.93, Hemoglobin 12.1, Hematocrit 37, Mean Corpuscular Volume 95, Mean Corpuscular Hemoglobin 31, Mean Corpuscular Hemoglobin Concent 32, Red Cell Distribution Width 13.0, Platelet Count 200, Mean Platelet Volume 10.8, Immature Granulocyte % (Auto) 0, Neutrophils (%) ( Auto) 73, Lymphocytes (%) (Auto) 14, Monocytes (%) (Auto) 8, Eosinophils (%) (Auto) 5, Basophils (%) (Auto) 0, Neutrophils # (Auto) 5.6, Lymphocytes # (Auto) 1.1, Monocytes # (Auto) 0.6, Eosinophils # (Auto) 0.4H, Basophils # (Auto) 0.0, Immature Granulocyte # (Auto) 0.0, Sodium Level 143, Potassium Level 3.8, Chloride Level 106, Carbon Dioxide Level 24, Anion Gap 13, Blood Urea Nitrogen 14, Creatinine 0.74, Estimat Glomerular Filtration Rate 77, BUN/Creatinine Ratio 19, Glucose Level 115H, Lactic Acid Level 1.27, Calcium Level 9.4, Corrected Calcium 9.2, Total Bilirubin 0.6, Aspartate Amino Transf (AST/SGOT) 21, Alanine Aminotransferase (ALT/SGPT) 24, Alkaline Phosphatase 96, Total Protein 6.9, Albumin 4.2 05/18/21 06:10: White Blood Count 6.5, Red Blood Count 3.99, Hemoglobin 12.1, Hematocrit 37, Mean Corpuscular Volume 94, Mean Corpuscular Hemoglobin 30, Mean Corpuscular Hemoglobin Concent 32, Red Cell Distribution Width 12.9, Platelet Count 190, Mean Platelet Volume 11.0, Immature Granulocyte % (Auto) 0, Neutrophils (%) (Auto) 72, Lymphocytes (%) (Auto) 15, Monocytes (%) (Auto) 8, Eosinophils (%) (Auto) 5, Basophils (%) (Auto) 1, Neutrophils # (Auto) 4.7, Lymphocytes # (Auto) 0.9L, Monocytes # (Auto) 0.5, Eosinophils # (Auto) 0.3, Basophils # (Auto) 0.0, Immature Granulocyte # (Auto) 0.0, Sodium Level 142, Potassium Level 3.5L, Chloride Level 105, Carbon Dioxide Level 24, Anion Gap 13, Blood Urea Nitrogen 9, Creatinine 0.64, Estimat Glomerular Filtration Rate 91, BUN/Creatinine Ratio 14, Glucose Level 119H, Calcium Level 9.3, Corrected Calcium 9.3, Total Bilirubin 0.6, Aspartate Amino Transf (AST/SGOT) 20, Alanine Aminotransferase (ALT/SGPT) 22, Alkaline Phosphatase 87, Total Protein 6.6, Albumin 4.0 Assessment/Plan Assessment and Plan 1. Left Breast Wound Dehiscence with Left Breast Cellulitis--admitted on Vancomycin with cultures pending--patient and nursing report breast not quite as red as yesterday, lovenox for DVT prophylaxis 2. Left Breast Cancer--following with Dr. Lundy 3. Hypertension--home meds restarted 4. Hypothyroidism--levothyroxine restarted 5. Chronic Pain due to Cervical and Lumbar Degenerative Disc Disease with history of both cervical and lumbar surgeries--gabapentin, baclofen and tramadol restarted 6. Hyperlipidemia--atorvastatin resumed Admission Diagnosis Admission Status: Inpatient Order (span 2 midnights) Reason for Inpatient Admission: Will need IV abx for at least 48hrs due to failed outpatient treatment ZAK MORENO DO May 18, 2021 11:50
[2021-05-18] MEDS ORDERED: KCL 20 MEQ TAB (K-DUR) PO ONE (12:00)
--- NOTE | 2021-05-18 13:19 | Consultation - Surgery ---
History of Present Illness History of Present Illness Patient Consulted On(anson/time) 05/18/21 13:10 Time Seen by Provider: 08:45 History of Present Illness Surgery asked to consult regarding Left breast cellulitis/abscess. HPI: pt is a 71 yo female with hx of partial mastectomy on May 02 and SLN bx. She states she first went to [facility] and was told she had a cellulitis and then placed on ABX, then saw Dr. Hardy, then went back to [facility] and finally saw Dr. Hardy again yesterday who sent her to hospital. She states the incision opened up a few days ago and has been draining since then. She stated culture was done, but has not heard results. S he said it looked like it had pus coming out. Rating the pain as 7 out of 10. She thinks today the redness in the breast is better but it is draining, "a lot". She is also asking why she has some pain in left side of breast and flank. Allergies and Home Medications Allergies Coded Allergies: adhesive (Verified Allergy, Intermediate, RASH, 06/02/18) rash from tape from OSH postop Sulfa (Sulfonamide Antibiotics) (Verified Allergy, Unknown, 12/21/06) terbinafine (Verified Allergy, Unknown, Itching, 04/22/19) Patient Home Medication List Home Medication List Reviewed: Yes Amlodipine Besylate (Amlodipine Besylate) 5 Mg Tablet, 5 MG PO DAILY, (Reported) Entered as Reported by: PEPPER STEWART on 06/03/18 0911 Anastrozole (Arimidex) 1 Mg Tablet, 1 MG PO DAILY, (Reported) Entered as Reported by: ARMANDO JIMENEZ on 04/26/21 1114 Aspirin (Aspirin EC) 81 Mg Tablet., 81 MG PO DAILY, (Reported) Entered as Reported by: PEPPER STEWART on 06/03/18 0918 Atorvastatin Calcium (Atorvastatin Calcium) 40 Mg Tablet, 40 MG PO DAILY, (Reported) Entered as Reported by: PEPPER STEWART on 06/03/18 09 Baclofen (Baclofen) 10 Mg Tablet, 10 MG PO TID, (Reported) Entered as Reported by: JAROD HERNANDEZ on 06/14/17 1832 Calcium Carbonate/Vitamin D3 (Calcium 500 + D Tablet) 1 Each Tablet, 1 TAB PO DAILY, (Reported) Entered as Reported by: PEPPER STEWART on 06/03/18 09 Carvedilol (Carvedilol) 6.25 Mg Tablet, 6.25 MG PO BID, (Reported) Entered as Reported by: JAROD HERNANDEZ on 06/14/171831 Cetirizine HCl (Zyrtec) 10 Mg Tablet, 10 MG PO DAILY, (Reported) Entered as Reported by: PEPPER STEWART on 06/03/18916 Cholecalciferol (Vitamin D3) (Vitamin D3) 125 Mcg Capsule, 125 MCG PO DAILY, (Reported) Entered as Reported by: ARMANDO JIMENEZ on 04/26/21 1114 Ferrous Gluconate (Iron) 256 Mg Tablet, 256 MG PO DAILY, (Reported) Entered as Reported by: ARMANDO JIMENEZ on 04/22/19 1425 Gabapentin (Neurontin) 300 Mg Capsule, 300 MG PO QID, (Reported) Entered as Reported by: ARMANDO JIMENEZ on 04/26/21 1114 Hydrocodone/Acetaminophen (Hydrocodone-Acetamin 7.5-325) 1 Each Tablet, 1 EACH PO Q4H PRN for PAIN-BREAKTHROUGH Prescribed by: PHILLY RODRÍGUEZ on 05/02/21 0856 Levothyroxine Sodium (Levothyroxine Sodium) 150 Mcg Tablet, 150 MCG PO DAILY, (Reported) Entered as Reported by: ARMANDO JIMENEZ on 04/26/21 1114 Losartan Potassium (Losartan Potassium) 100 Mg Tablet, 100 MG PO DAILY, (Reported) Entered as Reported by: PEPPER STEWART on 06/03/18 09 Magnesium Oxide (Magnesium) 400 Mg Tablet, 400 MG PO DAILY, (Reported) Entered as Reported by: PEPPER STEWART on 06/03/18917 Multivitamin (Daily Vitamin Formula) 1 Each Tablet, 1 TAB PO DAILY, (Reported) Entered as Reported by: PEPPER STEWART on 06/03/18916 Naproxen (Naproxen) 500 Mg Tablet, 500 MG PO BID, (Reported) Entered as Reported by: JAROD HERNANDEZ on 06/14/17 183 [place] 3 Polyunsat Fatty Acids (Fish Oil 1,000 mg Capsule) 1,000 Mg Cap, 1,000 MG PO DAILY, (Reported) Entered as Reported by: PEPPER STEWART on 06/03/18917 Pantoprazole Sodium (Protonix) 40 Mg Tablet.dr, 40 MG PO BID, (Reported) Entered as Reported by: PEPPER STEWART on 09/23/18 1307 Potassium Chloride (Potassium Chloride) 10 Meq Tab.er.prt, 10 MEQ PO DAILY, (Reported) Entered as Reported by: PEPPER STEWART on 06/03/18 09 Tramadol HCl/Acetaminophen (Tramadol-Acetaminophn 37.5-325) 1 Each Tablet, 2 TAB PO TID, (Reported) Entered as Reported by: PEPPER STEWART on 06/03/18 09 Triamcinolone Acetonide (Nasacort) 10.8 Ml [place], 1 SPRAY NSEACH BID, (Reported) Entered as Reported by: ARMANDO JIMENEZ on 04/22/19 1425 Ubidecarenone (Co Q-10) 100 Mg Capsule, 100 MG PO DAILY, (Reported) Entered as Reported by: PEPPER STEWART on 06/03/18917 Vitamin B Complex (Vitamin B Complex) 1 Each Capsule, 1 CAP PO DAILY, (Reported) Entered as Reported by: PEPPER STEWART on 06/03/18917 Past Hqkamjw-Uczhja-Ororua Hx Patient Social History Smoking Status: Never a Smoker 2nd Hand Smoke Exposure: No Recent Hopitalizations: No Alcohol Use?: No Have you traveled recently?: No Immunizations Up To Date Tetanus Booster (TDap): Unknown PED Vaccines UTD: Yes Date of Influenza Vaccine: Mar 15, 2021 Seasonal Allergies Seasonal Allergies: Yes Surgeries History of Surgeries: Yes (carpal tunnel, bilat feet sx, back x2, open lapartomy, bilat TKR) Surgeries: Abdominal, Adenoidectomy, Breast, Hysterectomy, Orthopedic, Tonsillectomy Respiratory History of Respiratory Disorde: Yes Respiratory Disorders: Sleep Apnea Cardiovascular History of Cardiac Disorders: Yes (anxiety induced angina) Cardiac Disorders: 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, Hypertension Neurological History of Neurological Disord: No Reproductive System Hx Reproductive Disorders: Yes ("I WAS INFERTILE.") Sexually Transmitted Disease: No HIV/AIDS: No Female Reproductive Disorders: Denies 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 Genitourinary History of Genitourinary Disor: Yes Genitourinary Disorders: Kidney Stones Gastrointestinal History of Gastrointestinal Di: Yes Gastrointestinal Disorders: Gastroesophageal Reflux, Irritable Bowel Musculoskeletal History of Musculoskeletal Dis: Yes (S.I.joint disorder) Musculoskeletal Disorders: Degenerate Disk Disease, Arthritis, Chronic Back Pain Endocrine History of Endocrine Disorders: Yes Endocrine Disorders: Hypothyroidsim HEENT History of HEENT Disorders: Yes HEENT Disorders: Cataract Loss of Vision: Denies Hearing Impairment: Bilateral Hearing Aide Cancer History of Cancer: Yes Cancer: Breast Psychosocial History of Psychiatric Problem: Yes Behavioral Health Disorders: Anxiety, Depression Integumentary History of Skin or Integumenta: No Blood Transfusions History of Blood Disorders: No (post surgery anemia) Adverse Reaction to a Blood Tr: No Family Medical History Significant Family History: Heart Disease, Cancer, COPD, Hypertension Family Medial History: Arthritis 19 MOTHER G8 SISTER Cardiovascular disease 19 MOTHER Deafness or hearing loss 19 FATHER Diabetes mellitus 19 MOTHER G8 SISTER FH: lupus 19 FATHER FH: skin cancer 19 MOTHER Hypercholesterolemia 19 MOTHER Hypertension 19 MOTHER Myocardial infarction 19 MOTHER Osteoporosis 19 MOTHER Prostate cancer G8 BROTHER G8 BROTHER Respiratory disorder 19 FATHER 19 MOTHER No Family History of: Drug abuse Review of Systems-General Constitutional: No diaphoresis, No fever; weakness EENTM: No blurred vision, No double vision, No hoarseness, No epistaxis Respiratory: No cough, No dyspnea on exertion, No hemoptysis Cardiovascular: No chest pain, No palpitations Gastrointestinal: No abdominal pain, No nausea, No vomiting Genitourinary: No dysuria, No frequency, No hematuria Musculoskeletal: back pain, joint pain, joint swelling, muscle pain, muscle stiffness Skin: No change in color, No change in hair/nails Psychiatric/Neurological: Anxiety, Depressed; Denies Seizure, Denies Tremors Physical Exam-General Problems Physical Exam Vital Signs Vital Signs - First Documented 05/17/21 18:40 Temp 37.2 Pulse 78 Resp 18 B/P (MAP) 131/53 (79) Pulse Ox 96 O2 Delivery Room Air Capillary Refill : General Appearance: WD/WN, no apparent distress Eyes: Bilateral Eye PERRL, Bilateral Eye EOMI HEENT: pharynx normal; No scleral icterus (R), No scleral icterus (L) Neck: full range of motion, supple Respiratory: lungs clear, normal breath sounds, no respiratory distress, no accessory muscle use Cardiovascular: regular rate, rhythm, no murmur Gastrointestinal: non tender, soft, no organomegaly Extremities: non-tender, normal inspection, no pedal edema, no calf tenderness Neurologic/Psychiatric: 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 Has an area of erythema in the 3-7 o'clock area of breast and 3 spots of methylene blue seen. Left breast larger than right. Axillary incision is c/d/i) Lymphatic: no adenopathy (neck, axilla or groin) Data Review Labs Laboratory Tests 05/17/21 20:14: White Blood Count 7.8, Red Blood Count 3.93, Hemoglobin 12.1, Hematocrit 37, Mean Corpuscular Volume 95, Mean Corpuscular Hemoglobin 31, Mean Corpuscular H emoglobin Concent 32, Red Cell Distribution Width 13.0, Platelet Count 200, Mean Platelet Volume 10.8, Immature Granulocyte % (Auto) 0, Neutrophils (%) (Auto) 73, Lymphocytes (%) (Auto) 14, Monocytes (%) (Auto) 8, Eosinophils (%) (Auto) 5, Basophils (%) (Auto) 0, Neutrophils # (Auto) 5.6, Lymphocytes # (Auto) 1.1, Monocytes # (Auto) 0.6, Eosinophils # (Auto) 0.4H, Basophils # (Auto) 0.0, Immature Granulocyte # (Auto) 0.0, Sodium Level 143, Potassium Level 3.8, Chloride Level 106, Carbon Dioxide Level 24, Anion Gap 13, Blood Urea Nitrogen 14, Creatinine 0.74, Estimat Glomerular Filtration Rate 77, BUN/Creatinine Ratio 19, Glucose Level 115H, Lactic Acid Level 1.27, Calcium Level 9.4, Corrected Calcium 9.2, Total Bilirubin 0.6, Aspartate Amino Transf (AST/SGOT) 21, Alanine Aminotransferase (ALT/SGPT) 24, Alkaline Phosphatase 96, Total Protein 6.9, Albumin 4.2 05/18/21 06:10: White Blood Count 6.5, Red Blood Count 3.99, Hemoglobin 12.1, Hematocrit 37, Mean Corpuscular Volume 94, Mean Corpuscular Hemoglobin 30, Mean Corpuscular Hemoglobin Concent 32, Red Cell Distribution Width 12.9, Platelet Count 190, Mean Platelet Volume 11.0, Immature Granulocyte % (Auto) 0, Neutrophils (%) (Auto) 72, Lymphocytes (%) (Auto) 15, Monocytes (%) (Auto) 8, Eosinophils (%) (Auto) 5, Basophils (%) (Auto) 1, Neutrophils # (Auto) 4.7, Lymphocytes # (Auto) 0.9L, Monocytes # (Auto) 0.5, Eosinophils # (Auto) 0.3, Basophils # (Auto) 0.0, Immature Granulocyte # (Auto) 0.0, Sodium Level 142, Potassium Level 3.5L, Chloride Level 105, Carbon Dioxide Level 24, Anion Gap 13, Blood Urea Nitrogen 9, Creatinine 0.64, Estimat Glomerular Filtration Rate 91, BUN/Creatinine Ratio 14, Glucose Level 119H, Calcium Level 9.3, Corrected Calcium 9.3, Total Bilirubin 0.6, Aspartate Amino Transf (AST/SGOT) 20, Alanine Aminotransferase (ALT/SGPT) 22, Alkaline Phosphatase 87, Total Protein 6.6, Albumin 4.0 Assessment/Plan Assessment/Plan Assessment/Plan Left breast Cellulitis Left breast wound dehiscence Left breast Cancer HTN, Hypthyroid The skin edges on the medial aspect of incision are necrotic, but it is not spreading. No purulent fluid seen and WBC is normal. I think most of her problem is just a seroma, could get US but they are not on this weekend and unlikely necessary since again the WBC is normal. I don't think culture is going to show anything except skin estefanía. Surgery would only be indicated to drain an abscess. Erythema of skin is most likely due to seroma, could be a mild cellulitis. I talked for a while with pt explaining wound healing and why she has the fluid. She may need very minimal debridement of the skin edges, but will need to heal by secondary intent now. Left lateral breast/flank pain is normal and most likely from the sentinel lymph node biopsy; this area looks good and no erythema or fluid here. Pt probably will not get any benefit from IV ABX. She thinks the redness is better and was mainly worried about drainage. I told her this could take another 2-4 weeks to heal, possibly longer. Will follow along. SEEMA BENAVIDEZ DO May 18, 2021 13:19
[2021-05-19 04:03] VITALS: BP 135/77
[2021-05-19] MEDS: LEVOTHYROXINE 150 MCG (LEVOTHROID) TAB PO SCH (06:22)
[2021-05-19 06:34] LABS: POTASSIUM 3.6 MMOL/L (3.6-5.0)
[2021-05-19 06:35] LABS: CALCIUM 9.6 MG/DL (8.5-10.1)
[2021-05-19 06:39] LABS: CREATININE SERUM 0.66 MG/DL (0.60-1.30)
[2021-05-19 07:47] VITALS: BP 143/80
--- NOTE | 2021-05-19 08:44 | Progress Note - Surgery ---
CINDY CARDENAS MED STUDENT 05/19/21 0844: Subjective Date Seen by a Provider: May 19, 2021 Time Seen by a Provider: 07:45 Subjective/Events-last exam This is Aria a 71 yo female with the chief complaint of left breast cellulitis following a partial mastectomy and SLN on May 02. Pt was laying in bed watching TV upon entering the room. Pt stated that her pain is at a 5/10 and feels similar to how she did yesterday. The axillary pain has decreased but the draining of serious fluid from the incision sight has increased. She stated that the amount of draining is worse after movement and drained a significant amount after showering last night. She believes that the redness surrounding the incision sight has decreased. Pt continues to eat and drink well. She sits in her chair often but stated that today she will walk the halls to get some steps in. Pt asked many follow-up questions and expressed concern for the size of the future scar. Review of Systems General: No Appetite (pt is eating and drinking well) Pulmonary: No Dyspnea Cardiovascular: No: Edema Gastrointestinal: No: Abdominal Pain Musculoskeletal: other (pain surrounding inicision sight on left breast and axila) Focused Exam Lactate Level 05/17/21 20:14: Lactic Acid Level 1.27 Time of Focused Exam: 07:45 Respiratory: Lungs Clear, Normal Breath Sounds, No Accessory Muscle Use, No Respiratory Distress Cardiovascular: Regular Rate, Rhythm, No Edema, No Gallop, No Murmur, Normal Peripheral Pulses Skin: normal color, warm/dry Objective Exam Vital Signs Date Time Temp Pulse Resp B/P (MAP) Pulse Ox O2 Delivery O2 Flow Rate FiO2 05/19/21 07:47 36.7 72 18 143/80 (101) 97 NIV CPAP 05/19/21 04:03 36.8 76 20 135/77 (96) 95 Room Air 05/18/21 23:11 37.0 72 20 138/71 (93) 95 Room Air 05/18/21 20:05 Room Air 05/18/21 19:47 37.4 77 20 121/73 (89) 94 Room Air 05/18/21 15:49 36.6 79 22 125/68 (87) 91 Room Air 05/18/21 11:34 36.4 76 20 136/75 (95) 95 Room Air I & O 05/19/21 07:00 Intake Total 1920 ml Output Total 1850 ml Balance 70 ml Capillary Refill : General Appearance: No Apparent Distress, Obese HEENT: PERRL/EOMI, Pharynx Normal Neck: Normal Inspection, Non Tender, Supple Respiratory: Lungs Clear, Normal Breath Sounds, No Accessory Muscle Use, No Respiratory Distress Cardiovascular: Regular Rate, Rhythm, No Edema, No Gallop, No Murmur, Normal Peripheral Pulses Gastrointestinal: non tender, soft, no organomegaly Extremity: Normal Inspection, Non Tender, No Calf Tenderness, No Pedal Edema Neurologic/Psychiatric: Alert, Oriented x3, Normal Mood/Affect Skin: Normal Color, Warm/Dry, Erythema (to left upper breast around dehisced wound with serous drainage on gauze pad), Other (incicion sight on left breast with increased skin necrosis) Lymphatic: No Adenopathy (cervical or supraclavicular) Results Lab Laboratory Tests 05/19/21 05:33: Sodium Level 143, Potassium Level 3.6, Chloride Level 105, Carbon Dioxide Level 24, Anion Gap 14, Blood Urea Nitrogen 13, Creatinine 0.66, Estimat Glomerular Filtration Rate 88, BUN/Creatinine Ratio 20, Glucose Level 137H, Calcium Level 9.6 Microbiology 05/17/21 Blood Culture - Preliminary, Resulted No growth Assessment/Plan Assessment/Plan Assessment/Plan Assessment: Left breast Cellulitis Left breast wound dehiscence primarily on right aspect with serous drainage Left breast Cancer HTN Hypthyroid Plan: continue IV antibiotics encourage ambulation continue pain medications schedule US for tomorrow frequent bandage change RYAN BENAVIDEZ DO 05/19/21 1627: Subjective Time Seen by a Provider: 12:23 Subjective/Events-last exam Pt seen and examined, state she is feeling better today and thinks the redness is much better. Still has some drainage Review of Systems General: No Chills, No Night Sweats Pulmonary: No Dyspnea, No Cough Cardiovascular: No: Edema Gastrointestinal: No: Nausea, Abdominal Pain Musculoskeletal: other (pain surrounding inicision sight on left breast and axila) Objective Exam General Appearance: No Apparent Distress, Obese HEENT: PERRL/EOMI Respiratory: Lungs Clear, Normal Breath Sounds, No Accessory Muscle Use, No Respiratory Distress Cardiovascular: Regular Rate, Rhythm, No Murmur Gastrointestinal: non tender, soft, no organomegaly Neurologic/Psychiatric: Alert, Oriented x3 Skin: Erythema (to left upper breast around dehisced wound with serous drainage on gauze pad), Other (incicion sight on left breast with skin necrosis) Assessment/Plan Assessment/Plan Assessment/Plan Assessment: Left breast Cellulitis Left breast wound dehiscence primarily on right aspect with serous drainage Left breast Cancer HTN Hypthyroid Plan: continue IV antibiotics, good local wound care, encourage ambulation, continue pain medications as needed Supervisory-Addendum Brief Verification & Attestation Participated in pt care: history, MDM, physical Personally performed: exam, history, MDM, supervision of care Care discussed with: Medical Student Procedures: n/a Verification and Attestation of Medical Student E/M Service A medical student performed and documented this service. I then reviewed and verified all information documented by the medical student and made modifications to such information, when appropriate. I personally performed a physical exam, medical decision making and then discussed any differences between the notes and made revisions as necessary to create one note. Ryan Benavidez , 05/19/21 , 16:31 CINDY CARDENAS MED STUDENT May 19, 2021 08:44 RYAN BENAVIDEZ DO May 19, 2021 16:27
[2021-05-19] MEDS: amLODIPine 5 MG (NORVASC) TAB PO SCH (09:09)
[2021-05-19] MEDS: LORATADINE (CLARITIN) 10 MG TAB PO SCH (09:10)
[2021-05-19] MEDS: BACLOFEN 10 MG (LIORESAL) TAB PO SCH ×3 (09:10→19:52)
[2021-05-19] MEDS: GABAPENTIN 300 MG (NEURONTIN) CAP PO SCH ×4 (09:10→19:52)
[2021-05-19] MEDS: LACTOBACILLUS ACIDOPHILUS (PROBIOTIC) CAPSULE PO SCH ×3 (09:10→18:22)
[2021-05-19] MEDS: LOSARTAN 100 MG (COZAAR) TABLET PO SCH (09:10)
[2021-05-19] MEDS: PANTOPRAZOLE 40 MG (PROTONIX) TAB PO SCH (09:10)
[2021-05-19] MEDS: ENOXAPARIN 40 MG/0.4 ML (LOVENOX) SYR SC SCH (09:10)
[2021-05-19] MEDS: FLUTICASONE NASAL SPRAY (FLONASE) 16 GM BTL NS SCH ×2 (09:13→19:51)
[2021-05-19] MEDS ORDERED: TROUGH ORDER-PHARMACY XX NR (11:00)
[2021-05-19 11:14] VITALS: BP 139/74
--- NOTE | 2021-05-19 11:16 | Progress Note ---
Subjective Date Seen by a Provider: May 19, 2021 Time Seen by a Provider: 11:12 Subjective/Events-last exam Fwup left breast wound dehiscence with cellulitis, left breast cancer, HTN, Hypothyroidism, Chronic Neck and Low Back pain/Deg disc disease with history of surgery. Less drainage from breast wound and less redness. Focused Exam Lactate Level 05/17/21 20:14: Lactic Acid Level 1.27 Time of Focused Exam: 07:45 Objective Exam Vital Signs Date Time Temp Pulse Resp B/P (MAP) Pulse Ox O2 Delivery O2 Flow Rate FiO2 05/19/21 08:00 Room Air 05/19/21 07:47 36.7 72 18 143/80 (101) 97 NIV CPAP 05/19/21 04:03 36.8 76 20 135/77 (96) 95 Room Air 05/18/21 23:11 37.0 72 20 138/71 (93) 95 Room Air 05/18/21 20:05 Room Air 05/18/21 19:47 37.4 77 20 121/73 (89) 94 Room Air 05/18/21 15:49 36.6 79 22 125/68 (87) 91 Room Air 05/18/21 11:34 36.4 76 20 136/75 (95) 95 Room Air I & O 05/19/21 07:00 Intake Total 1920 ml Output Total 1850 ml Balance 70 ml Capillary Refill : General Appearance: No Apparent Distress Respiratory: Lungs Clear Cardiovascular: Regular Rate, Rhythm Gastrointestinal: non tender, soft Extremity: Non Tender, No Calf Tenderness Neurologic/Psychiatric: Alert, Oriented x3 Skin: Other (left breast wound with ABD pad in place and less serous drainage on pad, less surrounding erythema in breast) Results Lab Laboratory Tests 05/19/21 05:33: Sodium Level 143, Potassium Level 3.6, Chloride Level 105, Carbon Dioxide Level 24, Anion Gap 14, Blood Urea Nitrogen 13, Creatinine 0.66, Estimat Glomerular Filtration Rate 88, BUN/Creatinine Ratio 20, Glucose Level 137H, Calcium Level 9.6 Microbiology 05/17/21 Blood Culture - Preliminary, Resulted No growth Assessment/Plan Assessment/Plan Assess & Plan/Chief Complaint 1. Left Breast Wound Dehiscence with Left Breast Cellulitis--admitted on Vancomycin with cultures pending, less drainage from wound and less erythema, lovenox for DVT prophylaxis, will keep through tomorrow for another day of IV Vanc and finals on cultures 2. Left Breast Cancer--following with Dr. Lundy 3. Hypertension--home meds restarted 4. Hypothyroidism--levothyroxine restarted 5. Chronic Pain due to Cervical and Lumbar Degenerative Disc Disease with history of both cervical and lumbar surgeries--gabapentin, baclofen and tramadol restarted 6. Hyperlipidemia--atorvastatin resumed Clinical Quality Measures Admission Status Admission Dx 1. Left Breast Wound Dehiscence with Left Breast Cellulitis--admitted on Vancomycin with cultures pending--patient and nursing report breast not quite as red as yesterday, lovenox for DVT prophylaxis 2. Left Breast Cancer--following with Dr. Lundy 3. Hypertension--home meds restarted 4. Hypothyroidism--levothyroxine restarted 5. Chronic Pain due to Cervical and Lumbar Degenerative Disc Disease with history of both cervical and lumbar surgeries--gabapentin, baclofen and tramadol restarted 6. Hyperlipidemia--atorvastatin resumed ZAK MORENO DO May 19, 2021 11:16
[2021-05-19] MEDS: VANCOMYCIN 1,250 MG/NS 250 ML IVPB IV SCH ×4 (12:31→23:44)
[2021-05-19] MEDS: ACETAMINOPHEN 325 MG TABLET PO PRN (12:31)
[2021-05-19 15:25] VITALS: BP 139/71
[2021-05-19 19:52] VITALS: BP 128/63
[2021-05-19 23:05] VITALS: BP 140/74
[2021-05-20] MEDS: LEVOTHYROXINE 150 MCG (LEVOTHROID) TAB PO SCH (06:22)
[2021-05-20] MEDS: LACTOBACILLUS ACIDOPHILUS (PROBIOTIC) CAPSULE PO SCH ×3 (07:59→18:07)
[2021-05-20] MEDS: ENOXAPARIN 40 MG/0.4 ML (LOVENOX) SYR SC SCH (07:59)
[2021-05-20 08:00] VITALS: BP 135/70
[2021-05-20] MEDS: LORATADINE (CLARITIN) 10 MG TAB PO SCH (08:00)
[2021-05-20] MEDS: LOSARTAN 100 MG (COZAAR) TABLET PO SCH (08:00)
[2021-05-20] MEDS: GABAPENTIN 300 MG (NEURONTIN) CAP PO SCH ×4 (08:00→20:08)
[2021-05-20] MEDS: PANTOPRAZOLE 40 MG (PROTONIX) TAB PO SCH (08:00)
[2021-05-20] MEDS: BACLOFEN 10 MG (LIORESAL) TAB PO SCH ×3 (08:00→20:08)
[2021-05-20] MEDS: amLODIPine 5 MG (NORVASC) TAB PO SCH (08:00)
[2021-05-20] MEDS: FLUTICASONE NASAL SPRAY (FLONASE) 16 GM BTL NS SCH ×2 (08:00→20:11)
--- NOTE | 2021-05-20 08:46 | Progress Note ---
Subjective Review of Systems General: No Chills, No Night Sweats Pulmonary: No Dyspnea, No Cough Cardiovascular: No: Edema Gastrointestinal: No: Nausea, Abdominal Pain Musculoskeletal: other (pain surrounding inicision sight on left breast and axila) Objective Exam Vital Signs Vital Signs Date Time Temp Pulse Resp B/P (MAP) Pulse Ox O2 Delivery O2 Flow Rate FiO2 05/20/21 08:29 Room Air 0.00 05/20/21 08:00 36.4 70 20 135/70 (91) 94 Room Air 05/20/21 07:35 Room Air 05/19/21 23:05 37.2 75 18 140/74 (96) 93 Room Air 05/19/21 20:00 Room Air 05/19/21 19:52 75 128/63 (84) 05/19/21 15:25 37.1 74 20 139/71 (93) 94 Room Air 05/19/21 11:14 36.1 80 20 139/74 (95) 95 Room Air I & O 05/20/21 07:00 Intake Total 2457.5 ml Balance 2457.5 ml General Appearance: No Apparent Distress, Obese Eyes: Bilateral Eye PERRL, Bilateral Eye EOMI HEENT: PERRL/EOMI Neck: Normal Inspection, Non Tender, Supple Respiratory: Lungs Clear, Normal Breath Sounds, No Accessory Muscle Use, No Respiratory Distress Cardiovascular: Regular Rate, Rhythm, No Murmur Gastrointestinal: Normal Bowel Sounds, Non Tender, Soft Rectal: Deferred Back: No CVA Tenderness Extremity: Non Tender, No Calf Tenderness Neurologic/Psychiatric: Alert, Oriented x3 Skin: Erythema (to left upper breast around dehisced wound with serous drainage on gauze pad), Other (incicion sight on left breast with skin necrosis) Lymphatic: No Adenopathy (cervical or supraclavicular) Results Lab Laboratory Tests 05/19/21 10:40: Vancomycin Level Trough 9.0L Microbiology 05/17/21 Blood Culture - Preliminary, Resulted No growth Assessment/Plan Assessment/Plan Assessment and Plan CELLULITIS WITH ABSCESS OF LEFT BREAST LEFT BREAST PAIN HX OF BREAST CANCER WITH RECENT LUMPECTOMY HYPERTENSION CELLULITIS WITH ABSCESS OF LEFT BREAST - PSEUDOMONAS AERUGINOSA - STOP CURRENT ANTIBIOTICS - CHANGE TO MEROPENEM BASED ON CURRENT SENSITIVITY PROFILE - DISCUSSED WITH DR. CASAS - I FEEL IF THE PT WILL NEED SURGICAL DEBRIDEMENT OF THE WOUND - HE WILL COME UP TO EVAL PATIENT. LEFT BREAST PAIN HX OF BREAST CANCER WITH RECENT LUMPECTOMY HYPERTENSION CHRISTINA BLACK MD May 20, 2021 08:46
[2021-05-20] MEDS ORDERED: CHOL200074 PO (09:41)
[2021-05-20] MEDS ORDERED: FLUT16SP22 NS (09:42)
[2021-05-20] MEDS ORDERED: AMLO-251 PO (09:43)
[2021-05-20] MEDS ORDERED: HYDR-3817 PO (09:44)
[2021-05-20] MEDS ORDERED: CYAN100T37 PO (09:46)
[2021-05-20] MEDS ORDERED: PYRI100T10 PO (09:47)
[2021-05-20] MEDS ORDERED: MELA1TAB27 PO (09:47)
[2021-05-20] MEDS ORDERED: MULT-974 PO (09:48)
[2021-05-20] MEDS ORDERED: [UNRECOGNIZED DRUG - CODE] PO (09:49)
[2021-05-20] MEDS ORDERED: ACET-2267 PO (09:50)
[2021-05-20] MEDS: MEROPENEM 500 MG in NS (IVPB) 100 ML IV SCH ×3 (09:51→21:14)
[2021-05-20] MEDS ORDERED: PROP10DR2 OP (09:52)
[2021-05-20] MEDS ORDERED: DICL20GE TP (09:53)
[2021-05-20] MEDS ORDERED: DICL100G13 TP (09:58)
[2021-05-20] MEDS ORDERED: L.AC1CAP10 PO (09:58)
[2021-05-20] MEDS ORDERED: VANCOMYCIN 1500 MG/NS 500 ML IVPB IV SCH ×2 (10:00)
[2021-05-20] MEDS ORDERED: FERR-84 PO (10:05)
[2021-05-20] MEDS ORDERED: AMOX1TAB11 PO (10:10)
[2021-05-20] MEDS ORDERED: CEPH500C PO (10:10)
[2021-05-20] MEDS: ACETAMINOPHEN 325 MG TABLET PO PRN (12:10)
[2021-05-20 15:53] VITALS: BP 123/66
--- NOTE | 2021-05-20 16:49 | Progress Note ---
Subjective Date Seen by a Provider: May 20, 2021 Time Seen by a Provider: 16:00 Subjective/Events-last exam doing well. no fever/chills. mild left breast pain. Focused Exam Lactate Level 05/17/21 20:14: Lactic Acid Level 1.27 Time of Focused Exam: 07:45 Objective Exam Vital Signs Date Time Temp Pulse Resp B/P (MAP) Pulse Ox O2 Delivery O2 Flow Rate FiO2 05/20/21 15:53 36.9 73 20 123/66 (85) 94 Room Air 05/20/21 08:29 Room Air 0.00 05/20/21 08:00 36.4 70 20 135/70 (91) 94 Room Air 05/20/21 07:35 Room Air 05/19/21 23:05 37.2 75 18 140/74 (96) 93 Room Air 05/19/21 20:00 Room Air 05/19/21 19:52 75 128/63 (84) I & O 05/20/21 07:00 Intake Total 2457.5 ml Balance 2457.5 ml Capillary Refill : General Appearance: No Apparent Distress HEENT: PERRL/EOMI Neck: Full Range of Motion Respiratory: Chest Non Tender, Lungs Clear, Normal Breath Sounds Cardiovascular: Regular Rate, Rhythm Gastrointestinal: normal bowel sounds, non tender, soft Extremity: Normal Capillary Refill Neurologic/Psychiatric: Alert, Oriented x3 Skin: Normal Color, Other (open medial portion incision with clear drainage, mild medial skin erythema, no fluctuance) Lymphatic: No Adenopathy Results Lab Microbiology 05/17/21 Blood Culture - Preliminary, Resulted No growth Assessment/Plan Assessment/Plan Assess & Plan/Chief Complaint let breast ca s/p lumpectomy and SLN with wound infxn. debride tomorrow then wound care wet to dry to close by seconday intention. cont iv abx MAXIMILIANO CASAS MD May 20, 2021 16:49
--- NOTE | 2021-05-20 16:54 | Progress Note-Pre Operative ---
Pre-Operative Progress Note H&P Reviewed The H&P was reviewed, patient examined and no changes noted. Date Seen by Provider: May 20, 2021 Time Seen by Provider: 16:00 Date H&P Reviewed: May 20, 2021 Time H&P Reviewed: 16:00 Pre-Operative Diagnosis: left breast wound skin/fat necrosis and infxn MAXIMILIANO CASAS MD May 20, 2021 16:54
[2021-05-20] MEDS: HYDROcodone/APAP 5 MG/325 MG (LORTAB) TAB PO PRN (18:31)
[2021-05-20] MEDS: ZOLPIDEM 5 MG (AMBIEN) TAB PO PRN (21:14)
[2021-05-21] VITALS (10 sets, daily range): BP systolic 116–169; BP diastolic 59–84
[2021-05-21] MEDS: MEROPENEM 500 MG in NS (IVPB) 100 ML IV SCH ×3 (05:59→21:21)
[2021-05-21] MEDS: LEVOTHYROXINE 150 MCG (LEVOTHROID) TAB PO SCH (06:00)
[2021-05-21] MEDS: LACTOBACILLUS ACIDOPHILUS (PROBIOTIC) CAPSULE PO SCH ×3 (09:04→17:06)
[2021-05-21] MEDS: LOSARTAN 100 MG (COZAAR) TABLET PO SCH (09:06)
[2021-05-21] MEDS: BACLOFEN 10 MG (LIORESAL) TAB PO SCH ×3 (09:06→20:32)
[2021-05-21] MEDS: LORATADINE (CLARITIN) 10 MG TAB PO SCH (09:06)
[2021-05-21] MEDS: FLUTICASONE NASAL SPRAY (FLONASE) 16 GM BTL NS SCH ×2 (09:06→21:21)
[2021-05-21] MEDS: PANTOPRAZOLE 40 MG (PROTONIX) TAB PO SCH (09:07)
[2021-05-21] MEDS: amLODIPine 5 MG (NORVASC) TAB PO SCH (09:07)
[2021-05-21] MEDS: GABAPENTIN 300 MG (NEURONTIN) CAP PO SCH ×4 (09:07→20:32)
[2021-05-21] MEDS: ENOXAPARIN 40 MG/0.4 ML (LOVENOX) SYR SC SCH (09:07)
--- NOTE | 2021-05-21 09:21 | Progress Note ---
Subjective Review of Systems General: No Chills, No Night Sweats Pulmonary: No Dyspnea, No Cough Cardiovascular: No: Edema Gastrointestinal: No: Nausea, Abdominal Pain Musculoskeletal: other (pain surrounding inicision sight on left breast and axila) Objective Exam Vital Signs Vital Signs Date Time Temp Pulse Resp B/P (MAP) Pulse Ox O2 Delivery O2 Flow Rate FiO2 05/21/21 08:00 36.6 80 20 144/80 (101) 96 Room Air 05/21/21 00:12 36.7 67 18 133/77 (95) 97 NIV CPAP 05/20/21 20:23 Room Air 05/20/21 15:53 36.9 73 20 123/66 (85) 94 Room Air I & O 05/21/21 07:00 Intake Total 1350 ml Balance 1350 ml General Appearance: No Apparent Distress Eyes: Bilateral Eye PERRL, Bilateral Eye EOMI HEENT: PERRL/EOMI Neck: Full Range of Motion Respiratory: Chest Non Tender, Lungs Clear, Normal Breath Sounds Cardiovascular: Regular Rate, Rhythm Gastrointestinal: Normal Bowel Sounds, Non Tender, Soft Rectal: Deferred Back: No CVA Tenderness Extremity: Normal Capillary Refill Neurologic/Psychiatric: Alert, Oriented x3 Skin: Normal Color, Other (open medial portion incision with clear drainage, mild medial skin erythema, no fluctuance) Lymphatic: No Adenopathy Results Lab Microbiology 05/17/21 Blood Culture - Preliminary, Resulted No growth Assessment/Plan Assessment/Plan Assessment and Plan CELLULITIS WITH ABSCESS OF LEFT BREAST LEFT BREAST PAIN HX OF BREAST CANCER WITH RECENT LUMPECTOMY HYPERTENSION CELLULITIS WITH ABSCESS OF LEFT BREAST - PSEUDOMONAS AERUGINOSA - STOP CURRENT ANTIBIOTICS - CHANGE TO MEROPENEM BASED ON CURRENT SENSITIVITY PROFILE - DISCUSSED WITH DR. CASAS - I FEEL IF THE PT WILL NEED SURGICAL DEBRIDEMENT OF THE WOUND - HE WILL COME UP TO EVAL PATIENT. LEFT BREAST PAIN HX OF BREAST CANCER WITH RECENT LUMPECTOMY HYPERTENSION CHRISTINA BLACK MD May 21, 2021 09:21
[2021-05-21] MEDS ORDERED: MIDAZOLAM 2 MG/2 ML (VERSED) VIAL ONE (09:32)
[2021-05-21] MEDS ORDERED: SEVOFLURANE (ULTANE) 15 ML INHAL SOLN ONE ×2 (09:32→11:39)
[2021-05-21] MEDS ORDERED: fentaNYL INJ 100 MCG/2 ML AMP ONE (09:32)
[2021-05-21] MEDS ORDERED: proPOfol 200 MG/20 ML (DIPRIVAN) VIAL IV ONE (09:32)
[2021-05-21] MEDS ORDERED: LIDOCAINE/EPI 1%-1:100,000 (XYLOCAINE) 20ML ONE (09:32)
[2021-05-21] MEDS ORDERED: LIDOCAINE PF 2% 5 ML (XYLOCAINE) VIAL ONE (09:32)
[2021-05-21] MEDS ORDERED: ONDANSETRON 4 MG/2 ML (SDV) Z0FRAN ONE (09:32)
[2021-05-21 09:54] LABS: HEMATOCRIT 41 % (35-52); HEMOGLOBIN 13.2 g/dL (11.5-16.0); MEAN CORPUSCULAR HEMOGLOBIN 30 pg (25-34); MEAN CORPUSCULAR HGB CONC 33 g/dL (32-36); MEAN CORPUSCULAR VOLUME 93 fL (80-99); MEAN PLATELET VOLUME 10.4 fL (9.0-12.2); PLATELET COUNT 218 10^3/uL (130-400); WHITE BLOOD COUNT 6.4 10^3/uL (4.3-11.0)
[2021-05-21 10:12] LABS: CALCIUM 9.9 MG/DL (8.5-10.1); CREATININE SERUM 0.67 MG/DL (0.60-1.30); POTASSIUM 3.6 MMOL/L (3.6-5.0)
[2021-05-21] MEDS ORDERED: LACTATED RINGERS 1,000 ML IV PRN (10:45)
[2021-05-21] MEDS ORDERED: KETOROLAC 30 MG/ML VIAL ONE (11:37)
--- NOTE | 2021-05-21 11:42 | Progress Note-Post Operative ---
Post-Operative Progess Note Surgeon (s)/Protective Signal Operations Supervisor (s) Surgeon MAXIMILIANO CASAS MD Protective Signal Operations Supervisor: none Pre-Operative Diagnosis left breast wound skin/fat necrosis and infxn Post-Operative Diagnosis left breast fat necrosis and seroma. Procedure & Operative Findings Date of Procedure 05/21/21 Procedure Performed/Findings incision and drainage and debridement subcutaneous tissue left breast(5cm) Anesthesia Type general LMA Estimated Blood Loss Estimated blood loss (mL): minimal Specimens/Packing Specimens Removed left breast drainage MAXIMILIANO CASAS MD May 21, 2021 11:42
--- NOTE | 2021-05-21 15:00 | Anesthesia-General Post-Op ---
General Patient Condition Mental Status/LOC: Same as Preop Cardiovascular: Satisfactory Nausea/Vomiting: Absent Respiratory: Satisfactory Pain: Controlled Complications: Absent Post Op Complications Complications None Follow Up Care/Instructions Patient Instructions None needed. Anesthesia/Patient Condition Patient Condition Patient is doing well, no complaints, stable vital signs, no apparent adverse anesthesia problems. No complications reported per nursing. FER MCCORMICK CRNA May 21, 2021 15:00
[2021-05-21] MEDS ORDERED: HYPOCHLOROUS ACID/NaCl (VASHE) 250 ML IR PRN (17:45)
--- NOTE | 2021-05-21 17:58 | OPERATIVE REPORT ---
DATE OF SERVICE: 05/21/2021 ATTENDING PRIMARY CARE PHYSICIAN: Subha Hardy MD. PREOPERATIVE DIAGNOSIS: Left breast fat necrosis and cellulitis. POSTOPERATIVE DIAGNOSIS: Left breast fat necrosis and cellulitis with large seroma. PROCEDURES PERFORMED: Incision and drainage, left breast seroma and debridement of skin and subcutaneous tissue approximately 5 x 2 cm in dimension. SURGEON: Maximiliano Casas MD. ANESTHESIA: General laryngeal mask airway. ESTIMATED BLOOD LOSS: Minimal. FINDINGS: Left breast fat necrosis and cellulitis with large seroma. DISPOSITION: The patient tolerated the procedure well. INDICATIONS FOR PROCEDURE: The patient is a 71-year-old female, who underwent a mammogram and a lesion was identified of the left breast at the 12 o'clock position, 4 cm from the nipple areolar complex. The lesion was 1 cm in size and spiculated. She underwent an ultrasound-guided biopsy, which did come back as an invasive ductal cancer, which was estrogen and progesterone receptor positive and HER-2 negative. On physical examination, there were no palpable lesions of the bilateral breasts as well as no axillary adenopathy. On 05/02/2021, she underwent a left breast needle localization, breast lumpectomy, and sentinel node biopsy. She did well after surgery and was sent home later that day. She had presented to her physician's office with redness and erythema as well as a slight opening of the medial aspect of the wound. She was started initially on oral antibiotics; however, this continued to worsen. Upon examination, she was found to have an open area of the medial aspect of the previous incision with some fat necrosis as well as some surrounding redness and erythema. DESCRIPTION OF PROCEDURE: The patient was brought to the operating room and laid supine on the table. After adequate IV pain and sedative medications and general laryngeal mask airway intubation, the chest was prepped and draped in a standard surgical fashion. A 0.5% Marcaine with epinephrine was then used to anesthetize the overlying skin to the lesion. The lesion was then opened using a 15 blade. A large seroma was identified. There was some surrounding fat necrosis of the skin and subcutaneous tissue, which was sharply debrided using a 15 blade. The tissue underneath did look viable with granulation tissue. Any suture elements identified were debrided out. The wound was then copiously irrigated and suctioned out. We left the incision open and this was then packed with a saline-soaked Kerlix followed by a 4 x 4 gauze followed by ABD pad. The patient tolerated the procedure well. We will consult wound care for possible wound VAC. If not available, then, we will recommend wet to dry dressings on a b.i.d. basis to allow to close by secondary intention. Job ID: [id number] DocumentID: [id number] Dictated Date: 05/21/2021 11:49:26 Emergency Services Professional Date: 05/21/2021 17:56:34 Dictated By: MAXIMILIANO CASAS MD
[2021-05-21] MEDS: HYDROcodone/APAP 5 MG/325 MG (LORTAB) TAB PO PRN (20:39)
[2021-05-21] MEDS: ZOLPIDEM 5 MG (AMBIEN) TAB PO PRN (21:58)
[2021-05-22 00:59] VITALS: BP 136/69
[2021-05-22] MEDS: LEVOTHYROXINE 150 MCG (LEVOTHROID) TAB PO SCH (05:55)
[2021-05-22] MEDS: MEROPENEM 500 MG in NS (IVPB) 100 ML IV SCH ×2 (05:55→14:18)
[2021-05-22 08:00] VITALS: BP 156/93
[2021-05-22] MEDS: GABAPENTIN 300 MG (NEURONTIN) CAP PO SCH ×2 (08:42→12:04)
[2021-05-22] MEDS: FLUTICASONE NASAL SPRAY (FLONASE) 16 GM BTL NS SCH (08:43)
[2021-05-22] MEDS: PANTOPRAZOLE 40 MG (PROTONIX) TAB PO SCH (08:43)
[2021-05-22] MEDS: BACLOFEN 10 MG (LIORESAL) TAB PO SCH ×2 (08:43→12:03)
[2021-05-22] MEDS: amLODIPine 5 MG (NORVASC) TAB PO SCH (08:43)
[2021-05-22] MEDS: LORATADINE (CLARITIN) 10 MG TAB PO SCH (08:43)
[2021-05-22] MEDS: ENOXAPARIN 40 MG/0.4 ML (LOVENOX) SYR SC SCH (08:43)
[2021-05-22] MEDS: LOSARTAN 100 MG (COZAAR) TABLET PO SCH (08:43)
[2021-05-22] MEDS: LACTOBACILLUS ACIDOPHILUS (PROBIOTIC) CAPSULE PO SCH ×2 (08:43→12:03)
[2021-05-22] MEDS: HYDROcodone/APAP 5 MG/325 MG (LORTAB) TAB PO PRN (10:12)
--- NOTE | 2021-05-22 15:02 | Discharge Summary ---
Diagnosis/Chief Complaint Date of Admission May 17, 2021 at 18:33 Date of Discharge Discharge Summary Discharge Physical Examination Allergies: Coded Allergies: adhesive (Verified Allergy, Intermediate, RASH, 06/02/18) rash from tape from OSH postop Sulfa (Sulfonamide Antibiotics) (Verified Allergy, Unknown, 12/21/06) terbinafine (Verified Allergy, Unknown, Itching, 04/22/19) Vitals & I&Os Vital Signs Date Time Temp Pulse Resp B/P (MAP) Pulse Ox O2 Delivery O2 Flow Rate FiO2 05/22/21 08:00 Room Air 05/22/21 08:00 36.4 87 20 156/93 (114) 96 05/21/21 12:21 2 Discharge Instructions to patient/family Please see electronic discharge instructions given to patient. Discharge Medications Reviewed and agree with Discharge Medication list on patient's Discharge Instruction sheet CHRISTINA BLACK MD May 22, 2021 15:02
== END 2021-05-22 15:05 | disposition swing bed (61) | DRG 571 ==
LOC: 4TH 18:33
PROVIDERS: ADMIT Family Medicine; ATTEND Family Medicine
PROC: 5A09357 Assistance with Respiratory Ventilation, Less than 24 Consecutive Hours, Continuous Positive Airway Pressure (ICD-10-PCS; 2021-05-21)
PROC: 0JB60ZZ Excision of Chest Subcutaneous Tissue and Fascia, Open Approach (ICD-10-PCS; principal; 2021-05-21 10:57)
DX: N61.0 Mastitis without abscess (principal); T81.30XA Disruption of wound, unspecified, initial encounter; N64.89 Other specified disorders of breast; Z79.899 Other long term (current) drug therapy; Z79.82 Long term (current) use of aspirin; Z79.890 Hormone replacement therapy; E78.00 Pure hypercholesterolemia, unspecified; I10 Essential (primary) hypertension; K21.9 Gastro-esophageal reflux disease without esophagitis; K58.9 Irritable bowel syndrome, unspecified; M19.90 Unspecified osteoarthritis, unspecified site; G89.29 Other chronic pain; M54.9 Dorsalgia, unspecified; E03.9 Hypothyroidism, unspecified; F41.9 Anxiety disorder, unspecified; F32.A Depression, unspecified; M50.30 Other cervical disc degeneration, unspecified cervical region; M51.36 Other intervertebral disc degeneration, lumbar region; Z85.3 Personal history of malignant neoplasm of breast; B96.5 Pseudomonas (aeruginosa) (mallei) (pseudomallei) as the cause of diseases classified elsewhere; Z90.12 Acquired absence of left breast and nipple; Z88.2 Allergy status to sulfonamides
CPT/HCPCS: 36415; 36569; 76937; 80048; 80053; 80202; 83605; 85025; 85027; 87040; 87070; 87075; 87077; 87186; 87205

== ENCOUNTER 2021-05-22 14:42 | Inpatient (IN) | payer MEDICARE, OTHER ==
[~2021-05-22] VITALS: Ht 170 cm; Wt 98.6 kg
[~2021-05-22 14:42] MED LIST changes: +ACET-2267 PO; +AMOX1TAB11 PO; +CEPH500C PO; +CHOL200074 PO; +CYAN100T37 PO; +DICL100G13 TP; +DICL20GE TP; +FERR-84 PO; +L.AC1CAP10 PO; +MELA1TAB27 PO; +MULT-974 PO; +PROP10DR2 OP; +[UNRECOGNIZED DRUG - CODE] PO
[2021-05-22] MEDS ORDERED: ACETAMINOPHEN 325 MG TABLET PO PRN (15:15)
--- NOTE | 2021-05-22 15:33 | Physical Therapy Progress Note ---
Therapy Progress Note Order for PT evaluation received. Patient states she has no trouble walking or getting around and doesn't have any weakness. Nurse states patient just got through taking a shower on her own. Patient wants to ambulate in the hallways on her own, she has a mask to wear. She doesn't use a walker or cane. Patient states she has no difficulty with functional mobility. PT will not excelsior picker this patient at this time. Please send another order for eval if patient does have some weakness or impaired balance or ambulation, etc. JIMMIE SOUZA PT May 22, 2021 15:33
--- NOTE | 2021-05-22 15:38 | Occ Therapy Progress Note ---
Therapy Progress Note OT orders received and chart reviewed. OT visited with pt who states she is at PLOF with ADLs. Pt took a shower earlier to day, independently. She is able to get dressed and toilet herself without assistance. Pt is up in her room independently without AD. Pt states some pain in UEs due to recent lumpectomy and surgeries, but doesn't have any concerns with this. No skilled OT txs indicated at this time, as pt is independent with ADLs and at PLOF. OT will need new orders if pt has decline in ADL function and requires skilled therapy. 1, visit TORIE WYNN OT May 22, 2021 15:38
[2021-05-22] MEDS ORDERED: HYPOCHLOROUS ACID/NaCl (VASHE) 250 ML IR PRN (15:57)
--- NOTE | 2021-05-22 15:57 | Progress Note ---
Subjective Date Seen by a Provider: May 22, 2021 Time Seen by a Provider: 13:00 Subjective/Events-last exam doing well. no complaints. tolerating diet and pain controlled. plan for wound vac. Objective Exam Capillary Refill : General Appearance: No Apparent Distress HEENT: PERRL/EOMI Neck: Full Range of Motion Respiratory: Chest Non Tender, Lungs Clear, Normal Breath Sounds Cardiovascular: Regular Rate, Rhythm Gastrointestinal: normal bowel sounds, non tender, soft Extremity: Normal Capillary Refill Neurologic/Psychiatric: Alert, Oriented x3 Skin: Other (wound clean'dry, no redness/erythema) Lymphatic: No Adenopathy Assessment/Plan Assessment/Plan Assess & Plan/Chief Complaint s/p incision and drainage and debridement left breast wound. wet to dry for now. wound care nurse evaluating for vac. MAXIMILIANO CASAS MD May 22, 2021 15:57
[2021-05-22] MEDS: HYDROcodone/APAP 5 MG/325 MG (LORTAB) TAB PO PRN (17:13)
[2021-05-22] MEDS: LACTOBACILLUS ACIDOPHILUS (PROBIOTIC) CAPSULE PO SCH (17:14)
[2021-05-22] MEDS: GABAPENTIN 300 MG (NEURONTIN) CAP PO SCH ×2 (17:14→20:47)
[2021-05-22 17:19] VITALS: BP 150/84
[2021-05-22] MEDS: BACLOFEN 10 MG (LIORESAL) TAB PO SCH (20:47)
[2021-05-22] MEDS: FLUTICASONE NASAL SPRAY (FLONASE) 16 GM BTL NS SCH (20:47)
[2021-05-22] MEDS: MEROPENEM 500 MG in NS (IVPB) 100 ML IV SCH (21:23)
[2021-05-22] MEDS: ZOLPIDEM 5 MG (AMBIEN) TAB PO PRN (22:12)
[2021-05-23] MEDS: MEROPENEM 500 MG in NS (IVPB) 100 ML IV SCH ×3 (06:04→21:42)
[2021-05-23 06:06] LABS: HEMATOCRIT 34 % (35-52); MEAN CORPUSCULAR HEMOGLOBIN 31 pg (25-34); MEAN CORPUSCULAR HGB CONC 32 g/dL (32-36); MEAN CORPUSCULAR VOLUME 95 fL (80-99); MEAN PLATELET VOLUME 10.4 fL (9.0-12.2); PLATELET COUNT 204 10^3/uL (130-400); WHITE BLOOD COUNT 6.5 10^3/uL (4.3-11.0)
[2021-05-23] MEDS: LEVOTHYROXINE 150 MCG (LEVOTHROID) TAB PO SCH (06:08)
[2021-05-23 06:10] VITALS: BP 144/79
[2021-05-23 06:30] LABS: POTASSIUM 4.1 MMOL/L (3.6-5.0)
[2021-05-23 06:36] LABS: CREATININE SERUM 0.67 MG/DL (0.60-1.30)
[2021-05-23] MEDS: ENOXAPARIN 40 MG/0.4 ML (LOVENOX) SYR SC SCH (08:20)
[2021-05-23] MEDS: LACTOBACILLUS ACIDOPHILUS (PROBIOTIC) CAPSULE PO SCH ×3 (08:20→16:48)
[2021-05-23] MEDS: LOSARTAN 100 MG (COZAAR) TABLET PO SCH (08:20)
[2021-05-23] MEDS: LORATADINE (CLARITIN) 10 MG TAB PO SCH (08:21)
[2021-05-23] MEDS: PANTOPRAZOLE 40 MG (PROTONIX) TAB PO SCH (08:21)
[2021-05-23] MEDS: GABAPENTIN 300 MG (NEURONTIN) CAP PO SCH ×4 (08:21→21:44)
[2021-05-23] MEDS: amLODIPine 5 MG (NORVASC) TAB PO SCH (08:21)
[2021-05-23] MEDS: BACLOFEN 10 MG (LIORESAL) TAB PO SCH ×3 (08:21→21:44)
[2021-05-23] MEDS: FLUTICASONE NASAL SPRAY (FLONASE) 16 GM BTL NS SCH ×2 (08:21→21:47)
[2021-05-23] MEDS: HYDROcodone/APAP 5 MG/325 MG (LORTAB) TAB PO PRN ×2 (08:48→15:59)
[2021-05-23] MEDS: morphine INJ 4 MG/ML 1 ML (VIAL/SYRINGE) IVP PRN (09:19)
[2021-05-23 17:10] VITALS: BP 133/72
[2021-05-23] MEDS: LACTATED RINGERS 1,000 ML IV PRN (21:44)
--- NOTE | 2021-05-23 22:32 | History & Physical ---
History of Present Illness History of Present Illness Reason for visit/HPI PT IS A 71 Y/O FEMALE WHO IS WELL KNOWN TO ME FROM CLINIC. SHE WAS ADMITTED TO THE HOSPITAL FOR CELLULITIS AND ABSCESS OF THE LEFT BREAST. SHE WAS TAKEN TO SURGERY FOR DEBRIDEMENT OF THE LEFT BREAST AND PLACED ON A WOUND VAC. OUTPATIENT CULTURE SHOWED MUTLI-DRUG RESISTANT PSEUDOMONAS AERUGINOSA. Date of Admission May 22, 2021 at 15:07 Date Seen by a Provider: May 22, 2021 Time Seen by a Provider: 15:00 Attending Physician Christina Hardy MD Admitting Physician Christina Hardy MD Consult Allergies and Home Medications Allergies Coded Allergies: adhesive (Verified Allergy, Intermediate, RASH, 06/02/18) rash from tape from OSH postop Sulfa (Sulfonamide Antibiotics) (Verified Allergy, Unknown, 12/21/06) terbinafine (Verified Allergy, Unknown, Itching, 04/22/19) Patient Home Medication List Home Medication List Reviewed: Yes Acetaminophen (Tylenol Extra Strength) 500 Mg Tablet, 1,000 MG PO Q8H PRN for PA IN-MILD (1-4), (Reported) Entered as Reported by: ALLEN MONTEJO on 05/20/21 0950 Amlodipine Besylate (Amlodipine Besylate) 10 Mg Tablet, 10 MG PO DAILY, (Reported) Entered as Reported by: ALLEN MONTEJO on 05/20/21 0943 Amoxicillin/Potassium Clav (Amox Tr-K Clv 500-125 mg Tab) 1 Each Tablet, 500 MG PO BID, (Reported) Entered as Reported by: ALLEN MONTEJO on 05/20/21 1010 Anastrozole (Arimidex) 1 Mg Tablet, 1 MG PO DAILY, (Reported) Entered as Reported by: ARMANDO JIMENEZ on 04/26/21 1114 Aspirin (Aspirin EC) 81 Mg Tablet.dr, 81 MG PO DAILY, (Reported) Entered as Reported by: PEPPER STEWART on 06/03/18 0918 Atorvastatin Calcium (Atorvastatin Calcium) 40 Mg Tablet, 40 MG PO DAILY, (Reported) Entered as Reported by: PEPPER STEWART on 06/03/18 0911 Baclofen (Baclofen) 10 Mg Tablet, 10 MG PO TID, (Reported) Entered as Reported by: JAROD HERNANDEZ on 06/14/17 1832 Carvedilol (Carvedilol) 6.25 Mg Tablet, 6.25 MG PO BID, (Reported) Entered as Reported by: JAROD HERNANDEZ on 06/14/17 1832 Cephalexin (Cephalexin) 500 Mg Capsule, 500 MG PO QID, (Reported) Entered as Reported by: ALELN MONTEJO on 05/20/21 1010 Cetirizine HCl (Zyrtec) 10 Mg Tablet, 10 MG PO DAILY, (Reported) Entered as Reported by: PEPPER STEWART on 06/03/18 0917 Cholecalciferol (Vitamin D3) (Vitamin D3) 50 Mcg Capsule, 50 MCG PO DAILY, (Reported) Entered as Reported by: ALLEN MONTEJO on 05/20/21 0941 Cyanocobalamin (Vitamin B-12) 100 Mcg Tablet, 100 MCG PO DAILY, (Reported) Entered as Reported by: ALLEN MONTEJO on 05/20/21 0946 Diclofenac Sodium (Diclofenac Sodium) 100 Gm Gel..gram., 1 APPLIC TP DAILY PRN for PAIN-MILD (1-4), (Reported) Entered as Reported by: ALLEN MONTEJO on 05/20/21 0958 Docusate Sodium (Oneal' Laxative) 100 Mg Capsule, 100 MG PO DAILY PRN for CONSTIPATION-1ST LINE, (Reported) Entered as Reported by: ALLEN MONTEJO on 05/20/21 0949 Ferrous Sulfate (Iron) 325 Mg Tablet, 325 MG PO DAILY, (Reported) Entered as Reported by: ALLEN MONTEJO on 05/20/21 1005 Fluticasone Propionate (Fluticasone Propionate) 16 Gm Wright.susp, 1 SPRAY NS DAILY, (Reported) Entered as Reported by: ALLEN MONTEJO on 05/20/21 0942 Gabapentin (Neurontin) 300 Mg Capsule, 300 MG PO QID, (Reported) Entered as Reported by: ARMANDO JIMENEZ on 04/26/21 1114 Hydrocodone/Acetaminophen (Hydrocodone-Acetamin 7.5-325) 1 Each Tablet, 1 EACH PO Q4H PRN for PAIN-MODERATE (5-7), (Reported) Entered as Reported by: ALLEN MONTEJO on 05/20/21 0944 L.acid/L.casei/B.bif/B.ramon/Fos (Probiotic Blend Capsule) 1 Each Capsule, 1 EACH PO DAILY, (Reported) Entered as Reported by: ALLEN MONTEJO on 05/20/21 0958 Levothyroxine Sodium (Levothyroxine Sodium) 150 Mcg Tablet, 150 MCG PO DAILY, (Reported) Entered as Reported by: ARMANDO JIMENEZ on 04/26/21 1114 Losartan Potassium (Losartan Potassium) 100 Mg Tablet, 100 MG PO DAILY, (Reported) Entered as Reported by: PEPPER STEWART on 06/03/18 09 Magnesium Oxide (Magnesium) 400 Mg Tablet, 400 MG PO DAILY, (Reported) Entered as Reported by: PEPPER STEWART on 06/03/18 0918 Melatonin/Pyridoxine HCl (B6) (Melatonin 3 mg Tablet) 1 Each Tablet, 1 EACH PO HS, (Reported) Entered as Reported by: ALLEN MONTEJO on 05/20/21 0947 Multivitamin (Multi-Vitamin Daily) 1 Each Tablet, 1 EACH PO DAILY, (Reported) Entered as Reported by: ALLEN MONTEJO on 05/20/21 0948 Naproxen (Naproxen) 500 Mg Tablet, 500 MG PO BID, (Reported) Entered as Reported by: JAROD HERNANDEZ on 06/14/17 1832 [place] 3 Polyunsat Fatty Acids (Fish Oil 1,000 mg Capsule) 1,000 Mg Cap, 1,000 MG PO DAILY, (Reported) Entered as Reported by: PEPPER STEWART on 06/03/18 09 Pantoprazole Sodium (Protonix) 40 Mg Tablet.dr, 40 MG PO DAILY, (Reported) Entered as Reported by: PEPPER STEWART on 09/23/18 1307 Potassium Chloride (Potassium Chloride) 10 Meq Tab.er.prt, 10 MEQ PO DAILY, (Reported) Entered as Reported by: PEPPER STEWART on 06/03/18 09 Propylene Glycol/Peg 400 (Systane Ultra 0.4-0.3% Eye Drp) 10 Ml Drops, 1 DROP OP TID, (Reported) Entered as Reported by: ALLEN MONTEJO on 05/20/21 0952 Pyridoxine HCl (Vitamin B-6) 100 Mg Tablet, 100 MG PO DAILY, (Reported) Entered as Reported by: ALLEN MONTEJO on 05/20/21 0947 Tramadol HCl/Acetaminophen (Tramadol-Acetaminophn 37.5-325) 1 Each Tablet, 2 TAB PO QID, (Reported) Entered as Reported by: PEPPER STEWART on 06/03/18 09 Vitamin B Complex (Vitamin B Complex) 1 Each Capsule, 1 CAP PO DAILY, (Reported) Entered as Reported by: PEPPER STEWART on 06/03/18 09 Discontinued Medications Amlodipine Besylate (Amlodipine Besylate) 5 Mg Tablet, 5 MG PO DAILY, (Reported) Discontinued Reason: No Longer Taking Entered as Reported by: PEPPER STEWART on 06/03/18 09 Calcium Carbonate/Vitamin D3 (Calcium 500 + D Tablet) 1 Each Tablet, 1 TAB PO DAILY, (Reported) Discontinued Reason: No Longer Taking Entered as Reported by: PEPPER STEWART on 06/03/18 09 Cholecalciferol (Vitamin D3) (Vitamin D3) 125 Mcg Capsule, 125 MCG PO DAILY, (Reported) Discontinued Reason: Prescription changed Entered as Reported by: ARMANDO JIMENEZ on 04/26/21 1114 Diclofenac Sodium (Voltaren Arthritis Pain) 20 Gm Gel..gram., 20 GM TP DAILY, (Reported) Discontinued Reason: Prescription changed Entered as Reported by: ALLEN MONTEJO on 05/20/21 0953 Ferrous Gluconate (Iron) 256 Mg Tablet, 256 MG PO DAILY, (Reported) Discontinued Reason: No Longer Taking Entered as Reported by: ARMANDO JIMENEZ on 04/22/19 1425 Hydrocodone/Acetaminophen (Hydrocodone-Acetamin 7.5-325) 1 Each Tablet, 1 EACH PO Q4H PRN for PAIN-BREAKTHROUGH Discontinued Reason: No Longer Taking Prescribed by: PHILLY RODRÍGUEZ on 05/02/21 0856 Multivitamin (Daily Vitamin Formula) 1 Each Tablet, 1 TAB PO DAILY, (Reported) Discontinued Reason: No Longer Taking Entered as Reported by: PEPPER STEWART on 06/03/18916 Triamcinolone Acetonide (Nasacort) 10.8 Ml Wright, 1 SPRAY NSEACH BID, (Reported) Discontinued Reason: No Longer Taking Entered as Reported by: ARMANDO JIMENEZ on 04/22/19 1425 Ubidecarenone (Co Q-10) 100 Mg Capsule, 100 MG PO DAILY, (Reported) Discontinued Reason: No Longer Taking Entered as Reported by: PEPPER STEWART on 06/03/18 09 Past [id number]-Cubopn-Cqcskr Hx Patient Social History Marrital Status: single Living Status: LIVES IN HOME IN [place] BY HERSELF Employed/Student: retired Tobacco Use?: No Immunizations Up To Date Date of Influenza Vaccine: Mar 15, 2021 First/Initial COVID19 Vaccinat: yes Second COVID19 Vaccination Serjio: yes Tetanus Booster (TDap): Unknown Hepatitis A: Yes Hepatitis B: Yes PED Vaccines UTD: Yes Seasonal Allergies Seasonal Allergies: Yes Current Status Primary Language: Japanese Past Medical History Surgeries: Abdominal, Adenoidectomy, Breast, Hysterectomy, Orthopedic, Tonsillectomy Sleep Apnea Currently Using CPAP: Yes Currently Using BIPAP: No 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, 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 Sexually Transmitted Disease: No HIV/AIDS: No Kidney Stones Gastroesophageal Reflux, Irritable Bowel Degenerate Disk Disease, Arthritis, Chronic Back Pain Hypothyroidsim Cataract Loss of Vision: Denies Hearing Impairment: Bilateral Hearing Aide Breast Anxiety, Depression Blood Disorders: No (post surgery anemia) Adverse Reaction/Blood Tranf: No Family Medical History Reviewed and Corrections made Arthritis 19 MOTHER G8 SISTER Cardiovascular disease 19 MOTHER Deafness or hearing loss 19 FATHER Diabetes mellitus 19 MOTHER G8 SISTER FH: lupus 19 FATHER FH: skin cancer 19 MOTHER Hypercholesterolemia 19 MOTHER Hypertension 19 MOTHER Myocardial infarction 19 MOTHER Osteoporosis 19 MOTHER Prostate cancer G8 BROTHER G8 BROTHER Respiratory disorder 19 FATHER 19 MOTHER No Family History of: Drug abuse Heart Disease, Cancer, COPD, Hypertension Review of Systems Constitutional: No chills, No fever, No malaise, No weakness EENTM: No hoarseness, No throat pain Respiratory: No cough, No dyspnea on exertion, No short of breath Cardiovascular: No chest pain, No palpitations Gastrointestinal: No abdominal pain, No constipation, No diarrhea, No nausea, No vomiting Genitourinary: no symptoms reported Musculoskeletal: back pain Skin: other (REDNESS OF LEFT BREAST WOUND VAC ON LEFT UPPER BREAST) Psychiatric/Neurological: Denies Anxiety, Denies Depressed, Denies Weakness All Other Systems Reviewed Negative Unless Noted: Yes Physical Exam Vital Signs Vital Signs - First Documented 05/22/21 17:19 Temp 36.6 Pulse 83 Resp 20 B/P (MAP) 150/84 (106) Pulse Ox 95 O2 Delivery Room Air Capillary Refill : Height, Weight, BMI Height: 5'7.00" Weight: 201lbs. 1.0oz. 91.326916gb; 31.76 BMI Method:Stated General Appearance: No Apparent Distress, WD/WN Eyes: Bilateral Eye Normal Inspection, Bilateral Eye PERRL, Bilateral Eye EOMI HEENT: PERRL/EOMI, Pharynx Normal Neck: Full Range of Motion, Normal Inspection, Non Tender, Supple Respiratory: Chest Non Tender, Lungs Clear, Normal Breath Sounds, No Accessory Muscle Use, No Respiratory Distress Cardiovascular: Regular Rate, Rhythm, No Edema Gastrointestinal: Normal Bowel Sounds, Non Tender, Soft Rectal: Deferred Extremity: Normal Capillary Refill, Non Tender, No Calf Tenderness, No Pedal Edema Neurologic/Psychiatric: Alert, Oriented x3, No Motor/Sensory Deficits, Normal Mood/Affect Skin: Erythema (LEFT MID TO LATERAL BREAST) Assessment/Plan Assessment and Plan CELLULITIS WITH ABSCESS OF LEFT BREAST LEFT BREAST PAIN HX OF BREAST CANCER WITH RECENT LUMPECTOMY HYPERTENSION CELLULITIS WITH ABSCESS OF LEFT BREAST - PSEUDOMONAS AERUGINOSA - STOP CURRENT ANTIBIOTICS - CHANGED TO MEROPENEM BASED ON CURRENT SENSITIVITY PROFILE - DISCUSSED WITH DR. CASAS - PT TAKEN TO SURGERY AND THE WOUND WAS DEBRIDED AND PT PLACED ON WOUND VAC. LEFT BREAST PAIN HX OF BREAST CANCER WITH RECENT LUMPECTOMY HYPERTENSION - HOME MEDICATION REGIMEN RESTARTED. Admission Diagnosis CELLULITIS WITH ABSCESS OF LEFT BREAST LEFT BREAST PAIN HX OF BREAST CANCER WITH RECENT LUMPECTOMY HYPERTENSION Admission Status: Other (Swing Bed) CHRISTINA HARDY MD May 23, 2021 22:32
[2021-05-23] MEDS: ZOLPIDEM 5 MG (AMBIEN) TAB PO PRN (23:09)
[2021-05-24 05:30] VITALS: BP 140/67
[2021-05-24] MEDS: LEVOTHYROXINE 150 MCG (LEVOTHROID) TAB PO SCH (06:37)
[2021-05-24] MEDS: MEROPENEM 500 MG in NS (IVPB) 100 ML IV SCH ×3 (06:40→21:56)
[2021-05-24] MEDS: PANTOPRAZOLE 40 MG (PROTONIX) TAB PO SCH (09:23)
[2021-05-24] MEDS: LACTOBACILLUS ACIDOPHILUS (PROBIOTIC) CAPSULE PO SCH ×3 (09:23→17:35)
[2021-05-24] MEDS: ENOXAPARIN 40 MG/0.4 ML (LOVENOX) SYR SC SCH (09:23)
[2021-05-24] MEDS: FLUTICASONE NASAL SPRAY (FLONASE) 16 GM BTL NS SCH ×2 (09:24→21:58)
[2021-05-24] MEDS: amLODIPine 5 MG (NORVASC) TAB PO SCH (09:24)
[2021-05-24] MEDS: LORATADINE (CLARITIN) 10 MG TAB PO SCH (09:24)
[2021-05-24] MEDS: BACLOFEN 10 MG (LIORESAL) TAB PO SCH ×3 (09:24→21:57)
[2021-05-24] MEDS: GABAPENTIN 300 MG (NEURONTIN) CAP PO SCH ×4 (09:24→21:56)
[2021-05-24] MEDS: LOSARTAN 100 MG (COZAAR) TABLET PO SCH (09:24)
--- NOTE | 2021-05-24 10:24 | Progress Note ---
Subjective Subjective Date Seen by Provider: May 24, 2021 Time Seen by Provider: 10:00 PT REPORTS THAT SHE IS FEELING BETTER TODAY. SHE DENIES CHEST PAIN, ABDOMINAL PAIN, NAUSEA, DIARRHEA. SHE DOES HAVE SOME SLIGHT CONSTIPATION. SHE ALSO IS WORRIED ABOUT HER LEFT BREAST NEVER LOOKING NORMAL Review of Systems General: No Chills, No Fatigue, No Malaise HEENT: No Dysphasia, No Sore Throat Pulmonary: No Dyspnea, No Cough Cardiovascular: No: Chest Pain, Palpitations Gastrointestinal: No: Nausea, Abdominal Pain Genitourinary: No Dysuria Musculoskeletal: back pain Neurological: No: Weakness, Confusion Objective Exam Vital Signs Vital Signs Date Time Temp Pulse Resp B/P (MAP) Pulse Ox O2 Delivery O2 Flow Rate FiO2 05/24/21 05:30 36.0 69 18 140/67 (91) 96 Room Air 05/23/21 21:50 Room Air 05/23/21 17:10 36.5 76 18 133/72 (92) 96 Room Air I & O 05/24/21 07:00 Intake Total 2810 ml Balance 2810 ml General Appearance: No Apparent Distress HEENT: PERRL/EOMI Neck: Full Range of Motion Respiratory: Chest Non Tender, Lungs Clear, Normal Breath Sounds Cardiovascular: Regular Rate, Rhythm Extremity: Normal Capillary Refill Neurologic/Psychiatric: Alert, Oriented x3 Skin: Other (wound clean'dry, no redness/erythema) Lymphatic: No Adenopathy Assessment/Plan Assessment/Plan Assessment and Plan CELLULITIS WITH ABSCESS OF LEFT BREAST LEFT BREAST PAIN HX OF BREAST CANCER WITH RECENT LUMPECTOMY HYPERTENSION CELLULITIS WITH ABSCESS OF LEFT BREAST - PSEUDOMONAS AERUGINOSA - STOP CURRENT ANTIBIOTICS - CHANGED TO MEROPENEM BASED ON CURRENT SENSITIVITY PROFILE - DISCUSSED WITH DR. CASAS - PT TAKEN TO SURGERY AND THE WOUND WAS DEBRIDED AND PT PLACED ON WOUND VAC. LEFT BREAST PAIN HX OF BREAST CANCER WITH RECENT LUMPECTOMY HYPERTENSION - HOME MEDICATION REGIMEN RESTARTED. CHRISTINA BLACK MD May 24, 2021 10:24
[2021-05-24] MEDS ORDERED: SENNA W/DOCUSATE (SENOKOT S) TABLET PO NR (10:29)
[2021-05-24] MEDS ORDERED: SENNA W/DOCUSATE (SENOKOT S) TABLET PO PRN (10:30)
--- NOTE | 2021-05-24 10:58 | Progress Note ---
Subjective Date Seen by a Provider: May 24, 2021 Time Seen by a Provider: 10:50 Subjective/Events-last exam doing well. no complaints. no fever/chills. tolerating diet. Objective Exam Vital Signs Date Time Temp Pulse Resp B/P (MAP) Pulse Ox O2 Delivery O2 Flow Rate FiO2 05/24/21 05:30 36.0 69 18 140/67 (91) 96 Room Air 05/23/21 21:50 Room Air 05/23/21 17:10 36.5 76 18 133/72 (92) 96 Room Air I & O 05/24/21 06:59 Intake Total 2810 ml Balance 2810 ml Capillary Refill : General Appearance: No Apparent Distress HEENT: PERRL/EOMI Neck: Full Range of Motion Respiratory: Chest Non Tender, Lungs Clear Cardiovascular: Regular Rate, Rhythm Gastrointestinal: normal bowel sounds, non tender, soft Extremity: Normal Capillary Refill Neurologic/Psychiatric: Alert, Oriented x3 Skin: Other (wound vac in place, no surrounding redness/erythema) Lymphatic: No Adenopathy Assessment/Plan Assessment/Plan Assess & Plan/Chief Complaint s/p incision and drainage and debridement left breast wound. wound vac in place. will cont. abx until tues for pseudomonas MAXIMILIANO CASAS MD May 24, 2021 10:58
[2021-05-24 17:59] VITALS: BP 133/89
[2021-05-24] MEDS: LACTATED RINGERS 1,000 ML IV PRN (22:04)
[2021-05-24] MEDS: ZOLPIDEM 5 MG (AMBIEN) TAB PO PRN (22:04)
[2021-05-24 23:25] VITALS: BP 155/81
[2021-05-25] MEDS: LEVOTHYROXINE 150 MCG (LEVOTHROID) TAB PO SCH (05:56)
[2021-05-25] MEDS: MEROPENEM 500 MG in NS (IVPB) 100 ML IV SCH ×3 (05:56→21:56)
[2021-05-25 06:42] VITALS: BP 171/72
[2021-05-25] MEDS: PANTOPRAZOLE 40 MG (PROTONIX) TAB PO SCH (08:51)
[2021-05-25] MEDS: BACLOFEN 10 MG (LIORESAL) TAB PO SCH ×3 (08:51→20:41)
[2021-05-25] MEDS: GABAPENTIN 300 MG (NEURONTIN) CAP PO SCH ×4 (08:51→20:41)
[2021-05-25] MEDS: LORATADINE (CLARITIN) 10 MG TAB PO SCH (08:51)
[2021-05-25] MEDS: LOSARTAN 100 MG (COZAAR) TABLET PO SCH (08:51)
[2021-05-25] MEDS: LACTOBACILLUS ACIDOPHILUS (PROBIOTIC) CAPSULE PO SCH ×3 (08:51→17:51)
[2021-05-25] MEDS: FLUTICASONE NASAL SPRAY (FLONASE) 16 GM BTL NS SCH ×2 (08:52→20:41)
[2021-05-25] MEDS: amLODIPine 5 MG (NORVASC) TAB PO SCH (08:52)
[2021-05-25] MEDS: ENOXAPARIN 40 MG/0.4 ML (LOVENOX) SYR SC SCH (08:52)
--- NOTE | 2021-05-25 10:30 | Progress Note ---
Subjective Subjective Date Seen by Provider: May 25, 2021 Time Seen by Provider: 10:30 PT REPORTS THAT SHE HAS CONSTIPATION - BUT IT HAS IMPROVED SLIGHTLY. SHE DENIES CHEST PAIN, ABDOMINAL PAIN. SHE STATES THAT SHE IS NOT HAVING ANY BREAST PAIN. Review of Systems General: No Chills, No Fatigue, No Malaise HEENT: No Dysphasia Pulmonary: No Dyspnea, No Cough Cardiovascular: No: Chest Pain Gastrointestinal: Constipation; No: Nausea, Abdominal Pain Genitourinary: No Dysuria, No Frequency Musculoskeletal: back pain Neurological: No: Weakness Objective Exam Vital Signs Vital Signs Date Time Temp Pulse Resp B/P (MAP) Pulse Ox O2 Delivery O2 Flow Rate FiO2 05/25/21 06:42 36.2 73 20 171/72 (105) 97 05/24/21 23:25 36.6 83 20 155/81 (105) 92 Room Air 05/24/21 21:00 96 Room Air 05/24/21 17:59 36.9 82 18 133/89 (104) 94 Room Air I & O 05/25/21 07:00 Intake Total 1865 ml Balance 1865 ml General Appearance: No Apparent Distress HEENT: PERRL/EOMI Neck: Full Range of Motion Respiratory: Chest Non Tender, Lungs Clear Cardiovascular: Regular Rate, Rhythm Extremity: Normal Capillary Refill Neurologic/Psychiatric: Alert, Oriented x3 Skin: Other (wound vac in place, no surrounding redness/erythema) Lymphatic: No Adenopathy Assessment/Plan Assessment/Plan Assessment and Plan CELLULITIS WITH ABSCESS OF LEFT BREAST LEFT BREAST PAIN HX OF BREAST CANCER WITH RECENT LUMPECTOMY HYPERTENSION CELLULITIS WITH ABSCESS OF LEFT BREAST - PSEUDOMONAS AERUGINOSA - STOP CURRENT ANTIBIOTICS - CHANGED TO MEROPENEM BASED ON CURRENT SENSITIVITY PROFILE - DISCUSSED WITH DR. CASAS - PT TAKEN TO SURGERY AND THE WOUND WAS DEBRIDED AND PT PLACED ON WOUND VAC. LEFT BREAST PAIN HX OF BREAST CANCER WITH RECENT LUMPECTOMY HYPERTENSION - HOME MEDICATION REGIMEN RESTARTED. CHRISTINA BLACK MD May 25, 2021 10:29
[2021-05-25 18:00] VITALS: BP 164/76
[2021-05-25] MEDS: ZOLPIDEM 5 MG (AMBIEN) TAB PO PRN (20:46)
[2021-05-26] MEDS: MEROPENEM 500 MG in NS (IVPB) 100 ML IV SCH ×3 (05:58→22:20)
[2021-05-26 06:10] LABS: HEMATOCRIT 37 % (35-52); HEMOGLOBIN 11.9 g/dL (11.5-16.0); MEAN CORPUSCULAR HEMOGLOBIN 31 pg (25-34); MEAN CORPUSCULAR HGB CONC 32 g/dL (32-36); MEAN CORPUSCULAR VOLUME 96 fL (80-99); MEAN PLATELET VOLUME 10.5 fL (9.0-12.2); PLATELET COUNT 203 10^3/uL (130-400); WHITE BLOOD COUNT 5.8 10^3/uL (4.3-11.0)
[2021-05-26 06:25] LABS: ALBUMIN 3.7 GM/DL (3.2-4.5)
[2021-05-26 06:28] LABS: TOTAL PROTEIN 6.2 GM/DL (6.4-8.2)
[2021-05-26 06:30] LABS: BILIRUBIN,TOTAL 0.5 MG/DL (0.1-1.0)
[2021-05-26 06:31] LABS: CREATININE SERUM 0.65 MG/DL (0.60-1.30)
[2021-05-26] MEDS: LEVOTHYROXINE 150 MCG (LEVOTHROID) TAB PO SCH (06:48)
[2021-05-26 08:08] VITALS: BP 134/85
[2021-05-26] MEDS: LACTOBACILLUS ACIDOPHILUS (PROBIOTIC) CAPSULE PO SCH ×3 (08:09→17:41)
[2021-05-26] MEDS: PANTOPRAZOLE 40 MG (PROTONIX) TAB PO SCH (08:09)
[2021-05-26] MEDS: LOSARTAN 100 MG (COZAAR) TABLET PO SCH (08:09)
[2021-05-26] MEDS: GABAPENTIN 300 MG (NEURONTIN) CAP PO SCH ×4 (08:09→20:39)
[2021-05-26] MEDS: LORATADINE (CLARITIN) 10 MG TAB PO SCH (08:09)
[2021-05-26] MEDS: FLUTICASONE NASAL SPRAY (FLONASE) 16 GM BTL NS SCH ×2 (08:09→20:39)
[2021-05-26] MEDS: amLODIPine 5 MG (NORVASC) TAB PO SCH (08:09)
[2021-05-26] MEDS: ENOXAPARIN 40 MG/0.4 ML (LOVENOX) SYR SC SCH (08:10)
[2021-05-26] MEDS: BACLOFEN 10 MG (LIORESAL) TAB PO SCH ×3 (08:10→20:39)
--- NOTE | 2021-05-26 09:25 | Progress Note ---
Subjective Subjective Date Seen by Provider: May 26, 2021 Time Seen by Provider: 09:20 PT REPORTS THAT SHE IS FEELING BETTER. SHE REPORTS SOME HOT FLASHES INTERMITTENTLY SHE DENIES CHEST PAIN, SHORTNESS OF BREATH, ABDOMINAL PAIN, NAUSEA, DIZZINESS, AND REPORTS THAT HER CONSTIPATION IS IMPROVED. Review of Systems General: No Chills, No Fatigue, No Malaise HEENT: No Dysphasia Pulmonary: No Dyspnea, No Cough Cardiovascular: No: Chest Pain Gastrointestinal: Constipation; No: Nausea, Abdominal Pain Genitourinary: No Dysuria, No Frequency Musculoskeletal: back pain Neurological: No: Weakness All Other Systems Reviewed All Other Systems Reviewed: Yes Objective Exam Vital Signs Vital Signs Date Time Temp Pulse Resp B/P (MAP) Pulse Ox O2 Delivery O2 Flow Rate FiO2 05/26/21 08:08 36.8 74 20 134/85 (101) 95 Room Air 05/25/21 21:00 Room Air 05/25/21 18:00 36.8 82 20 164/76 (105) 95 Room Air I & O 05/26/21 07:00 Intake Total 2220 ml Balance 2220 ml General Appearance: No Apparent Distress, WD/WN Eyes: Bilateral Eye Normal Inspection, Bilateral Eye PERRL, Bilateral Eye EOMI HEENT: PERRL/EOMI Neck: Full Range of Motion Respiratory: Chest Non Tender, Lungs Clear Cardiovascular: Regular Rate, Rhythm Gastrointestinal: Normal Bowel Sounds, Non Tender, Soft Rectal: Deferred Extremity: Normal Capillary Refill Neurologic/Psychiatric: Alert, Oriented x3, Normal Mood/Affect Skin: Other (WOUND VAC IN PLACE, ERYTHEMA OF LOWER BREAST ON LEFT LATERAL BREAST IS IMPROVED) Lymphatic: No Adenopathy Results Lab Laboratory Tests 05/26/21 06:00: White Blood Count 5.8, Red Blood Count 3.87, Hemoglobin 11.9, Hematocrit 37, Mean Corpuscular Volume 96, Mean Corpuscular Hemoglobin 31, Mean Corpuscular Hemoglobin Concent 32, Red Cell Distribution Width 13.4, Platelet Count 203, Mean Platelet Volume 10.5, Sodium Level 143, Potassium Level 4.0, Chloride Level 105, Carbon Dioxide Level 27, Anion Gap 11, Blood Urea Nitrogen 17, Creatinine 0.65, Estimat Glomerular Filtration Rate 90, BUN/Creatinine Ratio 26, Glucose Level 152H, Calcium Level 9.0, Corrected Calcium 9.2, Total Bilirubin 0.5, Aspartate Amino Transf (AST/SGOT) 21, Alanine Aminotransferase (ALT/SGPT) 29, Alkaline Phosphatase 103, Total Protein 6.2L, Albumin 3.7 Assessment/Plan Assessment/Plan Admission Dx CELLULITIS WITH ABSCESS OF LEFT BREAST LEFT BREAST PAIN HX OF BREAST CANCER WITH RECENT LUMPECTOMY HYPERTENSION Assessment and Plan CELLULITIS WITH ABSCESS OF LEFT BREAST LEFT BREAST PAIN HX OF BREAST CANCER WITH RECENT LUMPECTOMY HYPERTENSION CELLULITIS WITH ABSCESS OF LEFT BREAST - PSEUDOMONAS AERUGINOSA - STOP CURRENT ANTIBIOTICS - CHANGED TO MEROPENEM BASED ON CURRENT SENSITIVITY PROFILE - DISCUSSED WITH DR. CASAS - PT TAKEN TO SURGERY AND THE WOUND WAS DEBRIDED AND PT PLACED ON WOUND VAC. LEFT BREAST PAIN HX OF BREAST CANCER WITH RECENT LUMPECTOMY HYPERTENSION - HOME MEDICATION REGIMEN RESTARTED. Admission Dx CELLULITIS WITH ABSCESS OF LEFT BREAST LEFT BREAST PAIN HX OF BREAST CANCER WITH RECENT LUMPECTOMY HYPERTENSION Clinical Quality Measures Admission Status Admission Dx CELLULITIS WITH ABSCESS OF LEFT BREAST LEFT BREAST PAIN HX OF BREAST CANCER WITH RECENT LUMPECTOMY HYPERTENSION CHRISTINA BLACK MD May 26, 2021 09:24
[2021-05-26] MEDS ORDERED: amLODIPine 5 MG (NORVASC) TAB PO ONE (12:00)
[2021-05-26 12:24] VITALS: BP 168/81
[2021-05-26 19:40] VITALS: BP 165/75
[2021-05-26] MEDS: ZOLPIDEM 5 MG (AMBIEN) TAB PO PRN (22:21)
[2021-05-27] MEDS: LEVOTHYROXINE 150 MCG (LEVOTHROID) TAB PO SCH (06:11)
[2021-05-27] MEDS: MEROPENEM 500 MG in NS (IVPB) 100 ML IV SCH ×3 (06:11→21:06)
[2021-05-27 08:00] VITALS: BP 170/78
[2021-05-27] MEDS: ENOXAPARIN 40 MG/0.4 ML (LOVENOX) SYR SC SCH (08:20)
[2021-05-27] MEDS: LACTOBACILLUS ACIDOPHILUS (PROBIOTIC) CAPSULE PO SCH ×3 (08:20→17:57)
[2021-05-27] MEDS: GABAPENTIN 300 MG (NEURONTIN) CAP PO SCH ×4 (08:21→19:43)
[2021-05-27] MEDS: amLODIPine 10 MG (NORVASC) TAB PO SCH (08:21)
[2021-05-27] MEDS: BACLOFEN 10 MG (LIORESAL) TAB PO SCH ×3 (08:21→19:42)
[2021-05-27] MEDS: PANTOPRAZOLE 40 MG (PROTONIX) TAB PO SCH (08:21)
[2021-05-27] MEDS: LOSARTAN 100 MG (COZAAR) TABLET PO SCH (08:21)
[2021-05-27] MEDS: LORATADINE (CLARITIN) 10 MG TAB PO SCH (08:21)
[2021-05-27] MEDS: FLUTICASONE NASAL SPRAY (FLONASE) 16 GM BTL NS SCH ×2 (08:22→19:43)
--- NOTE | 2021-05-27 08:51 | Progress Note ---
Subjective Review of Systems General: No Chills, No Fatigue, No Malaise HEENT: No Dysphasia Pulmonary: No Dyspnea, No Cough Cardiovascular: No: Chest Pain Gastrointestinal: Constipation; No: Nausea, Abdominal Pain Genitourinary: No Dysuria, No Frequency Musculoskeletal: back pain Neurological: No: Weakness All Other Systems Reviewed All Other Systems Reviewed: Yes Objective Exam Vital Signs Vital Signs Date Time Temp Pulse Resp B/P (MAP) Pulse Ox O2 Delivery O2 Flow Rate FiO2 05/26/21 21:00 Room Air 05/26/21 19:40 36.7 88 18 165/75 (105) 95 Room Air 05/26/21 12:24 75 168/81 (110) 05/26/21 09:58 Room Air I & O 05/27/21 07:00 Intake Total 1800 ml Balance 1800 ml General Appearance: No Apparent Distress, WD/WN Eyes: Bilateral Eye Normal Inspection, Bilateral Eye PERRL, Bilateral Eye EOMI HEENT: PERRL/EOMI Neck: Full Range of Motion Respiratory: Chest Non Tender, Lungs Clear Cardiovascular: Regular Rate, Rhythm Gastrointestinal: Normal Bowel Sounds, Non Tender, Soft Rectal: Deferred Extremity: Normal Capillary Refill Neurologic/Psychiatric: Alert, Oriented x3, Normal Mood/Affect Skin: Other (WOUND VAC IN PLACE, ERYTHEMA OF LOWER BREAST ON LEFT LATERAL BREAST IS IMPROVED) Lymphatic: No Adenopathy Assessment/Plan Assessment/Plan Admission Dx CELLULITIS WITH ABSCESS OF LEFT BREAST LEFT BREAST PAIN HX OF BREAST CANCER WITH RECENT LUMPECTOMY HYPERTENSION Assessment and Plan CELLULITIS WITH ABSCESS OF LEFT BREAST LEFT BREAST PAIN HX OF BREAST CANCER WITH RECENT LUMPECTOMY HYPERTENSION CELLULITIS WITH ABSCESS OF LEFT BREAST - PSEUDOMONAS AERUGINOSA - STOP CURRENT ANTIBIOTICS - CHANGED TO MEROPENEM BASED ON CURRENT SENSITIVITY PROFILE - DISCUSSED WITH DR. CASAS - PT TAKEN TO SURGERY AND THE WOUND WAS DEBRIDED AND PT PLACED ON WOUND VAC. LEFT BREAST PAIN HX OF BREAST CANCER WITH RECENT LUMPECTOMY HYPERTENSION - HOME MEDICATION REGIMEN RESTARTED. Admission Dx CELLULITIS WITH ABSCESS OF LEFT BREAST LEFT BREAST PAIN HX OF BREAST CANCER WITH RECENT LUMPECTOMY HYPERTENSION Clinical Quality Measures Admission Status Admission Dx CELLULITIS WITH ABSCESS OF LEFT BREAST LEFT BREAST PAIN HX OF BREAST CANCER WITH RECENT LUMPECTOMY HYPERTENSION CHRISTINA BLACK MD May 27, 2021 08:51
[2021-05-27] MEDS: morphine INJ 4 MG/ML 1 ML (VIAL/SYRINGE) IVP PRN (09:57)
[2021-05-27 19:53] VITALS: BP 146/80
[2021-05-27] MEDS: ZOLPIDEM 5 MG (AMBIEN) TAB PO PRN (22:35)
[2021-05-28] MEDS: MEROPENEM 500 MG in NS (IVPB) 100 ML IV SCH (04:51)
[2021-05-28] MEDS: LEVOTHYROXINE 150 MCG (LEVOTHROID) TAB PO SCH (04:51)
[2021-05-28 05:05] LABS: HEMATOCRIT 37 % (35-52); HEMOGLOBIN 11.8 g/dL (11.5-16.0); MEAN CORPUSCULAR HEMOGLOBIN 30 pg (25-34); MEAN CORPUSCULAR HGB CONC 32 g/dL (32-36); MEAN CORPUSCULAR VOLUME 95 fL (80-99); MEAN PLATELET VOLUME 10.6 fL (9.0-12.2); PLATELET COUNT 213 10^3/uL (130-400); WHITE BLOOD COUNT 7.5 10^3/uL (4.3-11.0)
[2021-05-28 05:17] LABS: POTASSIUM 4.4 MMOL/L (3.6-5.0)
[2021-05-28 05:18] LABS: CALCIUM 9.3 MG/DL (8.5-10.1)
[2021-05-28 05:22] LABS: CREATININE SERUM 0.67 MG/DL (0.60-1.30)
[2021-05-28 07:24] VITALS: BP 135/76
--- NOTE | 2021-05-28 09:09 | Discharge Inst-Simple/Standard ---
Discharge Inst-Standard Reconcile Patient Problems Problems Reviewed?: Yes Patient Instructions/Follow Up Plan of Care/Instructions/FU: [facility] [address] CASAS'S OFFICE THURSDAY WITH WOUND CARE FOR WOUND VAC CHANGE Activity as Tolerated: Yes Goal: RESOLUTION OF WOUND Discharge Diet: Regular Diet Return to The Hospital For: ANY WORSENING REDNESS, SWELLING PAIN, WOUND VAC NOT WORKING CORRECTLY, SUCTION OF WOUND VAC NOT WORKING, OR ANY OTHER LIFE THREATENING ILLESS OR INJURY CHRISTINA BLACK MD May 28, 2021 09:09
[2021-05-28] MEDS: ENOXAPARIN 40 MG/0.4 ML (LOVENOX) SYR SC SCH (09:19)
[2021-05-28] MEDS: BACLOFEN 10 MG (LIORESAL) TAB PO SCH ×2 (09:19→12:38)
[2021-05-28] MEDS: LORATADINE (CLARITIN) 10 MG TAB PO SCH (09:19)
[2021-05-28] MEDS: LACTOBACILLUS ACIDOPHILUS (PROBIOTIC) CAPSULE PO SCH ×3 (09:19→17:24)
[2021-05-28] MEDS: PANTOPRAZOLE 40 MG (PROTONIX) TAB PO SCH (09:19)
[2021-05-28] MEDS: LOSARTAN 100 MG (COZAAR) TABLET PO SCH (09:19)
[2021-05-28] MEDS: amLODIPine 10 MG (NORVASC) TAB PO SCH (09:19)
[2021-05-28] MEDS: GABAPENTIN 300 MG (NEURONTIN) CAP PO SCH ×3 (09:19→17:24)
[2021-05-28] MEDS: FLUTICASONE NASAL SPRAY (FLONASE) 16 GM BTL NS SCH (09:21)
[2021-05-28 18:10] VITALS: BP 135/76
== END 2021-05-28 19:30 | disposition home or self-care (01) | DRG 601 ==
LOC: 4TH 15:07
PROVIDERS: ADMIT Family Medicine; ATTEND Family Medicine
DX: N61.0 Mastitis without abscess (principal); N61.1 Abscess of the breast and nipple; B96.5 Pseudomonas (aeruginosa) (mallei) (pseudomallei) as the cause of diseases classified elsewhere; Z85.3 Personal history of malignant neoplasm of breast; I10 Essential (primary) hypertension; E78.00 Pure hypercholesterolemia, unspecified; K21.9 Gastro-esophageal reflux disease without esophagitis; K58.9 Irritable bowel syndrome, unspecified; G89.29 Other chronic pain; M19.90 Unspecified osteoarthritis, unspecified site; M54.9 Dorsalgia, unspecified; E03.9 Hypothyroidism, unspecified; F41.9 Anxiety disorder, unspecified; F32.A Depression, unspecified; Z79.82 Long term (current) use of aspirin; Z79.899 Other long term (current) drug therapy; Z90.12 Acquired absence of left breast and nipple
CPT/HCPCS: 36415; 80048; 80053; 85027

== ENCOUNTER → 2021-05-31 | Outpatient (CLI) | payer MEDICARE, OTHER | LOC: WOUNDCARE 08:51 | PROVIDERS: ATTEND Family Medicine | DX: C50.412 Malignant neoplasm of upper-outer quadrant of left female breast (principal); L76.34 Postprocedural seroma of skin and subcutaneous tissue following other procedure; B96.5 Pseudomonas (aeruginosa) (mallei) (pseudomallei) as the cause of diseases classified elsewhere; N61.1 Abscess of the breast and nipple | CPT/HCPCS: 97605; G0463 ==

== ENCOUNTER → 2021-06-03 | Outpatient (CLI) | payer MEDICARE, OTHER | LOC: WOUNDCARE 15:09 | PROVIDERS: ATTEND Family Medicine | DX: S21.002A Unspecified open wound of left breast, initial encounter (principal); I10 Essential (primary) hypertension | CPT/HCPCS: 97605; G0463 ==

== ENCOUNTER → 2021-06-06 | Outpatient (CLI) | payer MEDICARE, OTHER | LOC: WOUNDCARE 15:24 | PROVIDERS: ATTEND Family Medicine | DX: C50.412 Malignant neoplasm of upper-outer quadrant of left female breast (principal); L76.34 Postprocedural seroma of skin and subcutaneous tissue following other procedure; B96.5 Pseudomonas (aeruginosa) (mallei) (pseudomallei) as the cause of diseases classified elsewhere; N61.1 Abscess of the breast and nipple; I96 Gangrene, not elsewhere classified | CPT/HCPCS: 11042; G0463 ==

== ENCOUNTER → 2021-06-10 | Outpatient (CLI) | payer MEDICARE, OTHER | LOC: WOUNDCARE 15:22 | PROVIDERS: ATTEND Family Medicine | DX: S21.002A Unspecified open wound of left breast, initial encounter (principal); I10 Essential (primary) hypertension | CPT/HCPCS: 97605; G0463 ==

== ENCOUNTER → 2021-06-13 | Outpatient (CLI) | payer MEDICARE, OTHER | LOC: WOUNDCARE 09:29 | PROVIDERS: ATTEND Family Medicine | DX: C50.412 Malignant neoplasm of upper-outer quadrant of left female breast (principal); L76.34 Postprocedural seroma of skin and subcutaneous tissue following other procedure; N61.1 Abscess of the breast and nipple; I96 Gangrene, not elsewhere classified | CPT/HCPCS: 11042; 97605; G0463 ==

== ENCOUNTER 2021-06-17 13:49 | Outpatient (RCR) | payer MEDICARE, OTHER ==
[2021-06-17 13:57] LABS: BASOPHILS % (AUTO) 0 % (0-10); EOSINOPHILS # (AUTO) 0.3 10^3/uL (0.0-0.3); EOSINOPHILS % (AUTO) 7 % (0-10); HEMATOCRIT 42 % (35-52); HEMOGLOBIN 13.5 g/dL (11.5-16.0); LYMPHOCYTES # (AUTO) 1.1 10^3/uL (1.0-4.0); LYMPHOCYTES % (AUTO) 24 % (12-44); MEAN CORPUSCULAR HEMOGLOBIN 30 pg (25-34); MEAN CORPUSCULAR HGB CONC 32 g/dL (32-36); MEAN CORPUSCULAR VOLUME 94 fL (80-99); MEAN PLATELET VOLUME 10.2 fL (9.0-12.2); MONOCYTES # (AUTO) 0.5 10^3/uL (0.0-1.0); MONOCYTES % (AUTO) 10 % (0-12); NEUTROPHILS # (AUTO) 2.8 10^3/uL (1.8-7.8); NEUTROPHILS % (AUTO) 59 % (42-75); PLATELET COUNT 200 10^3/uL (130-400); WHITE BLOOD COUNT 4.7 10^3/uL (4.3-11.0)
[2021-06-17 14:15] LABS: ALBUMIN 4.5 GM/DL (3.2-4.5); BILIRUBIN,TOTAL 0.7 MG/DL (0.1-1.0); CALCIUM 9.5 MG/DL (8.5-10.1); CREATININE SERUM 0.72 MG/DL (0.60-1.30); POTASSIUM 3.8 MMOL/L (3.6-5.0); TOTAL PROTEIN 7.1 GM/DL (6.4-8.2)
== END 2021-07-15 | disposition home or self-care (01) ==
LOC: ONC 13:49
PROVIDERS: ATTEND Internal Medicine Hematology & Oncology
DX: C50.912 Malignant neoplasm of unspecified site of left female breast (principal); T81.49XA Infection following a procedure, other surgical site, initial encounter; I10 Essential (primary) hypertension; E03.9 Hypothyroidism, unspecified; E78.5 Hyperlipidemia, unspecified; Z96.653 Presence of artificial knee joint, bilateral
CPT/HCPCS: 80053; 85025; G0463; 99213

== ENCOUNTER → 2021-06-18 | Outpatient (CLI) | payer MEDICARE, OTHER | LOC: WOUNDCARE 15:03 | PROVIDERS: ATTEND Family Medicine | DX: S21.002A Unspecified open wound of left breast, initial encounter (principal); I10 Essential (primary) hypertension | CPT/HCPCS: 97605; G0463 ==

== ENCOUNTER → 2021-06-21 | Outpatient (CLI) | payer MEDICARE, OTHER | LOC: WOUNDCARE 08:06 | PROVIDERS: ATTEND Family Medicine | DX: I96 Gangrene, not elsewhere classified (principal); C50.412 Malignant neoplasm of upper-outer quadrant of left female breast; L76.34 Postprocedural seroma of skin and subcutaneous tissue following other procedure | CPT/HCPCS: 11042; 97605; G0463 ==

== ENCOUNTER → 2021-06-25 | Outpatient (CLI) | payer MEDICARE, OTHER | LOC: WOUNDCARE 09:01 | PROVIDERS: ATTEND Family Medicine | DX: T81.89XA Other complications of procedures, not elsewhere classified, initial encounter (principal) | CPT/HCPCS: 97605; G0463 ==

== ENCOUNTER → 2021-06-28 | Outpatient (CLI) | payer MEDICARE, OTHER | LOC: WOUNDCARE 10:16 | PROVIDERS: ATTEND Family Medicine | DX: C50.412 Malignant neoplasm of upper-outer quadrant of left female breast (principal); L76.34 Postprocedural seroma of skin and subcutaneous tissue following other procedure; N61.1 Abscess of the breast and nipple; B96.5 Pseudomonas (aeruginosa) (mallei) (pseudomallei) as the cause of diseases classified elsewhere; I96 Gangrene, not elsewhere classified | CPT/HCPCS: 11042; 87070; 87077; 87186; 87205; 97605; G0463 ==

== ENCOUNTER → 2021-07-02 | Outpatient (CLI) | payer MEDICARE, OTHER | LOC: WOUNDCARE 08:17 | PROVIDERS: ATTEND Family Medicine | DX: L76.34 Postprocedural seroma of skin and subcutaneous tissue following other procedure (principal) | CPT/HCPCS: 97605; G0463 ==

== ENCOUNTER → 2021-07-05 | Outpatient (CLI) | payer MEDICARE, OTHER | LOC: WOUNDCARE 08:20 | PROVIDERS: ATTEND Family Medicine | DX: C50.412 Malignant neoplasm of upper-outer quadrant of left female breast (principal); L76.34 Postprocedural seroma of skin and subcutaneous tissue following other procedure; B96.5 Pseudomonas (aeruginosa) (mallei) (pseudomallei) as the cause of diseases classified elsewhere; N61.1 Abscess of the breast and nipple; B95.7 Other staphylococcus as the cause of diseases classified elsewhere; I96 Gangrene, not elsewhere classified | CPT/HCPCS: 11042; 97605; G0463 ==

== ENCOUNTER → 2021-07-09 | Outpatient (CLI) | payer MEDICARE, OTHER | LOC: WOUNDCARE 08:59 | PROVIDERS: ATTEND Family Medicine | DX: L76.34 Postprocedural seroma of skin and subcutaneous tissue following other procedure (principal); J32.9 Chronic sinusitis, unspecified; G47.33 Obstructive sleep apnea (adult) (pediatric); I10 Essential (primary) hypertension; M81.0 Age-related osteoporosis without current pathological fracture | CPT/HCPCS: 97605; G0463 ==

== ENCOUNTER → 2021-07-10 | Outpatient (CLI) | payer MEDICARE, OTHER ==
[~2021-07-10] MED LIST changes: +CATHETER FLUSH 10 ML SYR IV PRN; +REGADENOSON 0.4 MG/5 ML SYR (LEXISCAN) IV ONE
[2021-07-10 09:14] VITALS: BP 159/99
--- NOTE | 2021-07-10 12:42 | Cardiology Stress Test Report ---
Stress Test Report Date of Procedure/Referring: Date of Procedure: Jul 10, 2021 Guerita Gonzalez Admitting Physician Subha Hardy MD Indications: HTN Baseline Heart Rate: 81 Baseline Blood Pressure: Blood Pressure Systolic: 159 Blood Pressure Diastolic: 99 Baseline Vitals Vital Signs Date Time Temp Pulse Resp B/P (MAP) Pulse Ox O2 Delivery O2 Flow Rate FiO2 07/10/21 09:14 100 17 159/99 (119) 99 Room Air Baseline EKG: Baseline EKG: NSR Summary After explaining the procedure to the patient, she signed a consent and then brought to the stress nuclear laboratory. Patient received 0.4 mg Lexiscan for stress test, ECG, heart rate and blood pressure were monitored continuously. Resting and stress dose of radio tracer were injected, imaging was acquired and reviewed in short axis, horizontal long axis and vertical long axis views. TID: 1.07 SSS: 8 SDS: 6 EF: 59 1. Patient tolerated Lexiscan well 2. Breast attenuation, there is mild decrease uptake involving the mid to apical inferior wall with mild reversibility 3. Normal left ventricular size, EF 59% HARPER DU MD Jul 10, 2021 12:42
== END ==
LOC: CARD 07:45
PROVIDERS: ATTEND Physician Assistant
DX: I10 Essential (primary) hypertension (principal); I25.10 Atherosclerotic heart disease of native coronary artery without angina pectoris
CPT/HCPCS: 78452; 93017; A9502

== ENCOUNTER → 2021-07-12 | Outpatient (CLI) | payer MEDICARE, OTHER ==
[~2021-07-12] MED LIST changes: -CATHETER FLUSH 10 ML SYR IV PRN; -REGADENOSON 0.4 MG/5 ML SYR (LEXISCAN) IV ONE
== END ==
LOC: WOUNDCARE 08:33
PROVIDERS: ATTEND Family Medicine
DX: C50.412 Malignant neoplasm of upper-outer quadrant of left female breast (principal); L76.34 Postprocedural seroma of skin and subcutaneous tissue following other procedure; N61.1 Abscess of the breast and nipple; I96 Gangrene, not elsewhere classified
CPT/HCPCS: 11042; A6212; G0463

== ENCOUNTER → 2021-07-19 | Outpatient (CLI) | payer MEDICARE, OTHER | LOC: WOUNDCARE 08:28 | PROVIDERS: ATTEND Family Medicine | DX: C50.412 Malignant neoplasm of upper-outer quadrant of left female breast (principal); L76.34 Postprocedural seroma of skin and subcutaneous tissue following other procedure; N61.1 Abscess of the breast and nipple; T81.31XA Disruption of external operation (surgical) wound, not elsewhere classified, initial encounter; I96 Gangrene, not elsewhere classified | CPT/HCPCS: 11042; 97607; A9272; G0463 ==

== ENCOUNTER → 2021-07-23 | Outpatient (CLI) | payer MEDICARE, OTHER | LOC: WOUNDCARE 09:56 | PROVIDERS: ATTEND Family Medicine | DX: L76.34 Postprocedural seroma of skin and subcutaneous tissue following other procedure (principal); I10 Essential (primary) hypertension; M81.0 Age-related osteoporosis without current pathological fracture; G47.30 Sleep apnea, unspecified | CPT/HCPCS: 97607; A9272; G0463 ==

== ENCOUNTER → 2021-07-23 | Outpatient (CLI) | payer MEDICARE, OTHER ==
[~2021-07-23] MED LIST changes: +CATHETER FLUSH 10 ML SYR IV PRN; +HOLD METFORMIN - RECEIVED CONTRAST 20 ML VIAL IV SCH; +IOHEXOL 350 MG/ML 100 ML (OMNIPAQUE 350) VIAL IV ONE; +NS 100 ML (IVPB) BAG IV ONE
--- NOTE | 2021-07-23 11:27 | Diagnostic Imaging Report ---
PROCEDURE: CT angiography of the chest with contrast. TECHNIQUE: Multiple contiguous axial images were obtained through the chest after uneventful bolus administration of intravenous contrast. 3D reconstructed CTA MIP acquisitions were also performed. Auto Exposure Controls were utilized during the CT exam to meet ALARA standards for radiation dose reduction. INDICATION: Shortness of air. History of infection. COMPARISON: 05/30/2015. FINDINGS: No abnormal intraluminal filling defect is seen within the pulmonary arteries to the 1st subsegmental division. The main pulmonary arterial trunk is prominent at 3.5 cm in diameter. The thoracic aorta shows mild scattered calcified atherosclerosis but is otherwise normal in course and caliber. By NASCET criteria, there is no focal significant stenosis. There is no evidence of dissection or aneurysm. The heart size is within normal limits. There is moderate calcified coronary atherosclerosis. A small hiatal hernia is noted. There is no large pericardial effusion. There has been interval enlargement of the soft tissue nodular density within the anterior superior mediastinum. It measures 1.8 x 2.4 cm on today's exam. This is in comparison with 1.7 x 0.8 cm previously. No abnormal axillary or hilar adenopathy is seen. The lungs are clear. There is no focal consolidation, large effusion, or pneumothorax. Small subpleural micronodules are noted within the posterior margins of the right lower lobe. A reference micronodule measures 5 mm. This is stable compared to 05/30/2015. No new suspicious pulmonary nodules or masses are seen. The osseous structures show age-related degenerative changes. No acute osseous abnormality is seen. The included portions of the upper abdomen show a prominent left extrarenal pelvis. This is also stable. IMPRESSION: 1. No pulmonary embolus of the 1st subsegmental division of the pulmonary arteries. 2. No evidence of failure or focal infiltrate. 3. Interval enlargement of the nodular density within the anterior superior mediastinum. This could be on the basis of an enlarging thymic nodule or lymph node. Malignancy is not excluded. Followup is advised. 4. Stable right lower lobe pulmonary micronodules. Stability since 2014 suggests benignity. 5. Enlargement of the main pulmonary arterial trunk. The findings can be seen with underlying pulmonary arterial hypertension. Dictated by: Dictated on workstation # [id number]
== END ==
LOC: RAD 10:34
PROVIDERS: ATTEND Family Medicine
DX: C50.919 Malignant neoplasm of unspecified site of unspecified female breast (principal); R91.8 Other nonspecific abnormal finding of lung field; R06.02 Shortness of breath
CPT/HCPCS: 71275

== ENCOUNTER → 2021-07-26 | Outpatient (CLI) | payer MEDICARE, OTHER ==
[~2021-07-26] MED LIST changes: -CATHETER FLUSH 10 ML SYR IV PRN; -HOLD METFORMIN - RECEIVED CONTRAST 20 ML VIAL IV SCH; -IOHEXOL 350 MG/ML 100 ML (OMNIPAQUE 350) VIAL IV ONE; -NS 100 ML (IVPB) BAG IV ONE
== END ==
LOC: WOUNDCARE 08:28
PROVIDERS: ATTEND Family Medicine
DX: C50.412 Malignant neoplasm of upper-outer quadrant of left female breast (principal); L76.34 Postprocedural seroma of skin and subcutaneous tissue following other procedure; N61.1 Abscess of the breast and nipple; T81.31XA Disruption of external operation (surgical) wound, not elsewhere classified, initial encounter; I96 Gangrene, not elsewhere classified
CPT/HCPCS: 11042; 97607; A9272; G0463

== ENCOUNTER → 2021-07-30 | Outpatient (CLI) | payer MEDICARE, OTHER | LOC: WOUNDCARE 08:24 | PROVIDERS: ATTEND Family Medicine | DX: S21.002A Unspecified open wound of left breast, initial encounter (principal); I10 Essential (primary) hypertension | CPT/HCPCS: 97607; A9272; G0463 ==

== ENCOUNTER → 2021-08-02 | Outpatient (CLI) | payer MEDICARE, OTHER | LOC: WOUNDCARE 08:16 | PROVIDERS: ATTEND Family Medicine | DX: C50.412 Malignant neoplasm of upper-outer quadrant of left female breast (principal); L76.34 Postprocedural seroma of skin and subcutaneous tissue following other procedure; N61.1 Abscess of the breast and nipple; T81.31XA Disruption of external operation (surgical) wound, not elsewhere classified, initial encounter; I96 Gangrene, not elsewhere classified | CPT/HCPCS: 15271; 97607; A9272; G0463 ==

== ENCOUNTER → 2021-08-09 | Outpatient (CLI) | payer MEDICARE, OTHER | LOC: WOUNDCARE 08:15 | PROVIDERS: ATTEND Family Medicine | DX: C50.412 Malignant neoplasm of upper-outer quadrant of left female breast (principal); L76.34 Postprocedural seroma of skin and subcutaneous tissue following other procedure; T81.31XA Disruption of external operation (surgical) wound, not elsewhere classified, initial encounter; I96 Gangrene, not elsewhere classified ==

== ENCOUNTER → 2021-08-16 | Outpatient (CLI) | payer MEDICARE, OTHER | LOC: WOUNDCARE 08:24 | PROVIDERS: ATTEND Family Medicine | DX: C50.412 Malignant neoplasm of upper-outer quadrant of left female breast (principal); L76.34 Postprocedural seroma of skin and subcutaneous tissue following other procedure; T81.31XA Disruption of external operation (surgical) wound, not elsewhere classified, initial encounter; I96 Gangrene, not elsewhere classified | CPT/HCPCS: 15271; G0463 ==

== ENCOUNTER → 2021-08-27 | Outpatient (CLI) | payer MEDICARE, OTHER | LOC: WOUNDCARE 08:21 | PROVIDERS: ATTEND Family Medicine | DX: C50.412 Malignant neoplasm of upper-outer quadrant of left female breast (principal); L76.34 Postprocedural seroma of skin and subcutaneous tissue following other procedure; T81.31XA Disruption of external operation (surgical) wound, not elsewhere classified, initial encounter | CPT/HCPCS: 99212 ==

== ENCOUNTER 2021-09-11 08:54 | Outpatient (RCR) | payer MEDICARE, OTHER | END 2021-09-12 | LOC: ONC 08:54 | PROVIDERS: ATTEND Internal Medicine Hematology & Oncology | DX: C50.912 Malignant neoplasm of unspecified site of left female breast (principal); T81.49XA Infection following a procedure, other surgical site, initial encounter; I10 Essential (primary) hypertension; E03.9 Hypothyroidism, unspecified; E78.5 Hyperlipidemia, unspecified; Z96.653 Presence of artificial knee joint, bilateral | CPT/HCPCS: 77290; 77334; 99204; 99213 ==

== ENCOUNTER 2021-09-18 11:00 | Day surgery (SDC) | payer MEDICARE, OTHER ==
[~2021-09-18] VITALS: Ht 170 cm; Wt 99.3 kg
[2021-09-18] VITALS (12 sets, daily range): BP systolic 144–172; BP diastolic 68–91
--- NOTE | 2021-09-18 09:41 | Diagnostic Imaging Report ---
INDICATION: Hypertension with chest pain and abnormal stress test. Single AP view of the chest is obtained with comparison made study of 06/02/2018. FINDINGS: Heart size and pulmonary vascularity are within normal limits, and the lungs are clear, bilaterally. IMPRESSION: Unremarkable chest. Dictated by: Dictated on workstation # [id number]
[2021-09-18 09:46] LABS: BILIRUBIN,URINE NEGATIVE (NEGATIVE); CLARITY,URINE CLEAR; COLOR,URINE YELLOW; GLUCOSE, URINE (UA) NEGATIVE (NEGATIVE); HEMATOCRIT 41 % (35-52); HEMOGLOBIN 13.4 g/dL (11.5-16.0); KETONES,URINE NEGATIVE (NEGATIVE); LEUKOCYTE ESTERASE ,URINE 2+ (NEGATIVE); MEAN CORPUSCULAR HEMOGLOBIN 30 pg (25-34); MEAN CORPUSCULAR HGB CONC 33 g/dL (32-36); MEAN CORPUSCULAR VOLUME 92 fL (80-99); MEAN PLATELET VOLUME 10.4 fL (9.0-12.2); NITRITE,URINE NEGATIVE (NEGATIVE); PH,URINE 6.5 (5-9); PLATELET COUNT 194 10^3/uL (130-400); PROTEIN,URINE NEGATIVE (NEGATIVE); WHITE BLOOD COUNT 3.9 10^3/uL (4.3-11.0)
[2021-09-18 09:57] LABS: INR 0.9 (0.8-1.4); PROTHROMBIN TIME PATIENT 12.8 SEC (12.2-14.7)
[2021-09-18 10:03] LABS: AMORPHOUS SEDIMENT,UR FEW AMOR URATES /LPF; BACTERIA,URINE TRACE /HPF; RBC,URINE 0-2 /HPF; SQUAMOUS EPITHELIAL CELL,UR RARE /HPF
[2021-09-18 10:04] LABS: ALBUMIN 4.5 GM/DL (3.2-4.5); BILIRUBIN,TOTAL 0.7 MG/DL (0.1-1.0); CALCIUM 9.7 MG/DL (8.5-10.1); CREATININE SERUM 0.68 MG/DL (0.60-1.30); TOTAL PROTEIN 7.1 GM/DL (6.4-8.2)
[~2021-09-18 11:00] MED LIST changes: +HEParin (CATH LAB) 2,000 ML IV ONE; +LIDOCAINE 1% INJ 50 ML (XYLOCAINE) VIAL ONE; +NS IV 1000 ML 1,000 ML IV SCH; +NS IV 1000 ML 1,000 ML ONE; +TURM1CAP PO
[2021-09-18] MEDS ORDERED: MIDAZOLAM 5 MG/5 ML (VERSED) VIAL ONE (11:20)
[2021-09-18] MEDS ORDERED: fentaNYL INJ 100 MCG/2 ML AMP ONE (11:20)
--- NOTE | 2021-09-18 12:05 | Discharge Inst-Post CATH ---
Discharge Inst-CATH/EP Problems Reviewed?: Yes Post Cardiac Cath/EP D/C Inst Follow Up/Plan Appointment with Dr. Bustos's office in 2 to 4 weeks <b>CARDIAC CATH/EP PROCEDURE DISCHARGE INSTRUCTIONS</b> ACTIVITY * Go Home directly and rest. * Limit activity of the leg (or wrist if it was used) for 7 days including aer obics, swimming, jogging, bicycling, etc. * Restrict stair-climbing for 7 days if possible, if not, climb up with your non-cath leg, then bring together on the same step. * Avoid lifting, pushing, pulling or excessive movement of the affected extremi ty for 7 days. * Customary sexual activity may be resumed after 2 days-use caution not to use a position that strains or causes pain to the affected extremity. * No driving for 24 hours. * NO SMOKING. * Avoid straining for bowel movements for 7 days. * Gentle walking on level ground is allowed. * Returning to work will depend on the type of procedure and the results. Your doctor will discuss this with you. CALL YOUR DOCTOR FOR ANY OF THE FOLLOWING: *If bleeding from the puncture site occurs- Apply gentle pressure to site with clean cloth and call your doctor or EMS. * If a knot or lump forms under the skin, increases in size, or causes pain. * If bruising appears to be worsening or moving further down your leg instead of disappearing. * Temperature above 101 F. CARE OF YOUR GROIN INCISION; * Bruising or purple discoloration of the skin near the puncture site is common. * You may shower only, no bathtub bathing for 5 days. Be careful to avoid slipping as your leg may feel stiff. * If a closure device was used on your femoral artery, please see the attached guide regarding care of the device and your leg. * Leave dressing on FOR 24 hours. CARE OF YOUR WRIST INCISION; * Bruising or purple discoloration of the skin near the puncture site is common. * You may shower. * DO NOT submerge wrist. * Leave dressing on FOR 24 hours. HARPER BUSTOS MD Sep 18, 2021 12:05
--- NOTE | 2021-09-18 12:08 | Cardiac Cath Report ---
Cardiac Cath Report Physician (s)/Printer Slotter Operator (s) Physician HARPER DU MD Pre-Procedure Diagnosis Pre-Procedure Diagnosis: Coronary artery disease Post-Procedure Note Procedure Start Date: Sep 18, 2021 Name of Procedure: Left heart catheterization Findings/Procedure Note PROCEDURE NOTE: 71-year-old lady with history of hypertension, hyperlipidemia, has been having chest pain, has an abnormal stress test, scheduled for cardiac catheterization possible PTCA. After explaining the procedure to the patient, all pros and cons were explained, all questions were answered. The patient signed the consent and then she was placed on the cardiac catheterization laboratory. Groin was prepped SL fashion local anesthesia was used. Sheath placed in the right femoral artery. Bossman right and left catheter were used to access the coronary system. Pigtail was used to access the left ventricular cavity. Left ventriculogram was not done, pressure was measured At the end of the procedure the sheath was removed. Closure device was deployed FINDINGS: Hemodynamics LV 151/14, end-diastolic pressure of 14 Aorta 141/61 mean of 94 ANATOMY: Left Main is free of obstructive disease Left Anterior Descending is tortuous with mild disease nonobstructive disease Left Circumflex is tortuous artery, dominant artery with no obstructive disease Right Coronary Artery is small nondominant artery with no obstructive disease LV Gram was not done, pressure was measured CONCLUSION: 1. Tortuous LAD system with mild coronary artery disease nonobstructive disease 2. Normal left ventricular end-diastolic pressure DISCUSSION AND RECOMMENDATION: Abnormal stress test is probably due to extracardiac attenuation, medical therapy is recommended no intervention is needed Anesthesia Type: Conscious Sedation Estimated blood loss (mL): 15 ml Contrast Amount: 43 ml Total Radiation Dose: 404 mGy Post-Procedure Diagnosis Post-operative diagnosis: Chest pain Coronary artery disease Hypertension Hyperlipidemia HARPER DU MD Sep 18, 2021 12:08
[2021-09-18] MEDS ORDERED: NS IV 1000 ML 1,000 ML IV SCH (12:15)
[2021-09-18] MEDS ORDERED: PATIENT MAY USE OWN MEDS, ALL PO SCH (12:15)
== END 2021-09-18 16:30 | disposition home or self-care (01) ==
LOC: CATH 11:00 → SDC 12:30 → CATH 16:30
PROVIDERS: ATTEND Internal Medicine Cardiovascular Disease
DX: I25.10 Atherosclerotic heart disease of native coronary artery without angina pectoris (principal); I10 Essential (primary) hypertension; I65.23 Occlusion and stenosis of bilateral carotid arteries; F41.9 Anxiety disorder, unspecified; K21.9 Gastro-esophageal reflux disease without esophagitis; G47.30 Sleep apnea, unspecified; E03.9 Hypothyroidism, unspecified; C50.919 Malignant neoplasm of unspecified site of unspecified female breast; E78.2 Mixed hyperlipidemia; I45.89 Other specified conduction disorders; Z79.899 Other long term (current) drug therapy; Z79.82 Long term (current) use of aspirin; Z79.891 Long term (current) use of opiate analgesic; Z79.890 Hormone replacement therapy; Z98.890 Other specified postprocedural states
CPT/HCPCS: 71045; 80053; 80061; 81000; 85027; 85610; 85730; 87081; 93005; 93458; C1760; C1894; 36415

== ENCOUNTER 2021-10-09 13:53 | Outpatient (RCR) | payer MEDICARE, OTHER ==
[~2021-10-09 13:53] MED LIST changes: -HEParin (CATH LAB) 2,000 ML IV ONE; -LIDOCAINE 1% INJ 50 ML (XYLOCAINE) VIAL ONE; -NS IV 1000 ML 1,000 ML IV SCH; -NS IV 1000 ML 1,000 ML ONE
== END 2021-10-12 | disposition home or self-care (01) ==
LOC: ONC 13:53
PROVIDERS: ATTEND Internal Medicine Hematology & Oncology
DX: Z51.0 Encounter for antineoplastic radiation therapy (principal); Z45.2 Encounter for adjustment and management of vascular access device; C50.112 Malignant neoplasm of central portion of left female breast; I10 Essential (primary) hypertension; E03.9 Hypothyroidism, unspecified; E78.5 Hyperlipidemia, unspecified
CPT/HCPCS: 77295; 77300; 77307; 77334; 77336; 77417

== ENCOUNTER 2021-10-24 09:27 | Outpatient (RCR) | payer MEDICARE, OTHER ==
[2021-11-14 14:41] LABS: BASOPHILS % (AUTO) 1 % (0-10); EOSINOPHILS # (AUTO) 0.2 10^3/uL (0.0-0.3); EOSINOPHILS % (AUTO) 5 % (0-10); HEMATOCRIT 40 % (35-52); HEMOGLOBIN 13.4 g/dL (11.5-16.0); LYMPHOCYTES # (AUTO) 0.7 10^3/uL (1.0-4.0); LYMPHOCYTES % (AUTO) 17 % (12-44); MEAN CORPUSCULAR HEMOGLOBIN 31 pg (25-34); MEAN CORPUSCULAR HGB CONC 33 g/dL (32-36); MEAN CORPUSCULAR VOLUME 91 fL (80-99); MEAN PLATELET VOLUME 10.3 fL (9.0-12.2); MONOCYTES # (AUTO) 0.4 10^3/uL (0.0-1.0); MONOCYTES % (AUTO) 11 % (0-12); NEUTROPHILS # (AUTO) 2.5 10^3/uL (1.8-7.8); NEUTROPHILS % (AUTO) 66 % (42-75); PLATELET COUNT 168 10^3/uL (130-400); WHITE BLOOD COUNT 3.8 10^3/uL (4.3-11.0)
[2021-11-14 14:55] LABS: ALBUMIN 4.2 GM/DL (3.2-4.5); POTASSIUM 3.6 MMOL/L (3.6-5.0)
[2021-11-14 14:56] LABS: CALCIUM 9.2 MG/DL (8.5-10.1)
[2021-11-14 14:58] LABS: TOTAL PROTEIN 6.8 GM/DL (6.4-8.2)
[2021-11-14 14:59] LABS: BILIRUBIN,TOTAL 0.6 MG/DL (0.1-1.0)
[2021-11-14 15:01] LABS: CREATININE SERUM 0.65 MG/DL (0.60-1.30)
== END 2021-11-12 | disposition home or self-care (01) ==
LOC: ONC 09:27
PROVIDERS: ATTEND Internal Medicine Hematology & Oncology
DX: E78.2 Mixed hyperlipidemia (principal); I25.10 Atherosclerotic heart disease of native coronary artery without angina pectoris; I11.9 Hypertensive heart disease without heart failure
CPT/HCPCS: 77280; 77336

== ENCOUNTER 2021-11-28 10:47 | Outpatient (RCR) | payer MEDICARE, OTHER ==
[2021-11-14 14:41] LABS: BASOPHILS % (AUTO) 1 % (0-10); EOSINOPHILS # (AUTO) 0.2 10^3/uL (0.0-0.3); EOSINOPHILS % (AUTO) 5 % (0-10); HEMATOCRIT 40 % (35-52); HEMOGLOBIN 13.4 g/dL (11.5-16.0); LYMPHOCYTES # (AUTO) 0.7 10^3/uL (1.0-4.0); LYMPHOCYTES % (AUTO) 17 % (12-44); MEAN CORPUSCULAR HEMOGLOBIN 31 pg (25-34); MEAN CORPUSCULAR HGB CONC 33 g/dL (32-36); MEAN CORPUSCULAR VOLUME 91 fL (80-99); MEAN PLATELET VOLUME 10.3 fL (9.0-12.2); MONOCYTES # (AUTO) 0.4 10^3/uL (0.0-1.0); MONOCYTES % (AUTO) 11 % (0-12); NEUTROPHILS # (AUTO) 2.5 10^3/uL (1.8-7.8); NEUTROPHILS % (AUTO) 66 % (42-75); PLATELET COUNT 168 10^3/uL (130-400); WHITE BLOOD COUNT 3.8 10^3/uL (4.3-11.0)
[2021-11-14 14:55] LABS: ALBUMIN 4.2 GM/DL (3.2-4.5); POTASSIUM 3.6 MMOL/L (3.6-5.0)
[2021-11-14 14:56] LABS: CALCIUM 9.2 MG/DL (8.5-10.1)
[2021-11-14 14:58] LABS: TOTAL PROTEIN 6.8 GM/DL (6.4-8.2)
[2021-11-14 14:59] LABS: BILIRUBIN,TOTAL 0.6 MG/DL (0.1-1.0)
[2021-11-14 15:01] LABS: CREATININE SERUM 0.65 MG/DL (0.60-1.30)
== END 2021-12-12 | disposition home or self-care (01) ==
LOC: ONC 10:47
PROVIDERS: ATTEND Internal Medicine Hematology & Oncology
DX: C50.912 Malignant neoplasm of unspecified site of left female breast (principal); T81.49XA Infection following a procedure, other surgical site, initial encounter; E78.2 Mixed hyperlipidemia; I25.10 Atherosclerotic heart disease of native coronary artery without angina pectoris; I10 Essential (primary) hypertension; E03.9 Hypothyroidism, unspecified; Z90.12 Acquired absence of left breast and nipple; Z90.711 Acquired absence of uterus with remaining cervical stump; Z96.653 Presence of artificial knee joint, bilateral
CPT/HCPCS: 80053; 85025; G0463; 36415; 99213

== ENCOUNTER 2022-02-20 13:49 | Outpatient (RCR) | payer MEDICARE, OTHER ==
[~2022-02-20 13:49] MED LIST changes: +POTA-177 PO; -POTA10TA37 PO
[2022-02-20 14:14] LABS: BASOPHILS % (AUTO) 1 % (0-10); EOSINOPHILS # (AUTO) 0.3 10^3/uL (0.0-0.3); EOSINOPHILS % (AUTO) 7 % (0-10); HEMATOCRIT 38 % (35-52); HEMOGLOBIN 12.3 g/dL (11.5-16.0); LYMPHOCYTES % (AUTO) 24 % (12-44); MEAN CORPUSCULAR HEMOGLOBIN 30 pg (25-34); MEAN CORPUSCULAR HGB CONC 33 g/dL (32-36); MEAN CORPUSCULAR VOLUME 92 fL (80-99); MEAN PLATELET VOLUME 10.6 fL (9.0-12.2); MONOCYTES # (AUTO) 0.3 10^3/uL (0.0-1.0); MONOCYTES % (AUTO) 8 % (0-12); NEUTROPHILS # (AUTO) 2.6 10^3/uL (1.8-7.8); NEUTROPHILS % (AUTO) 60 % (42-75); PLATELET COUNT 159 10^3/uL (130-400); WHITE BLOOD COUNT 4.2 10^3/uL (4.3-11.0)
[2022-02-20 14:33] LABS: ALBUMIN 4.2 GM/DL (3.2-4.5); BILIRUBIN,TOTAL 0.8 MG/DL (0.1-1.0); CALCIUM 9.7 MG/DL (8.5-10.1); CREATININE SERUM 0.77 MG/DL (0.60-1.30); POTASSIUM 3.7 MMOL/L (3.6-5.0); TOTAL PROTEIN 6.8 GM/DL (6.4-8.2)
== END 2022-03-14 | disposition home or self-care (01) ==
LOC: ONC 13:49
PROVIDERS: ATTEND Internal Medicine Hematology & Oncology
DX: C50.912 Malignant neoplasm of unspecified site of left female breast (principal); E78.2 Mixed hyperlipidemia; I25.10 Atherosclerotic heart disease of native coronary artery without angina pectoris; I10 Essential (primary) hypertension; E03.9 Hypothyroidism, unspecified; Z90.12 Acquired absence of left breast and nipple; Z90.711 Acquired absence of uterus with remaining cervical stump; Z96.653 Presence of artificial knee joint, bilateral
CPT/HCPCS: 80053; 85025; G0463; 36415; 99213

== ENCOUNTER 2022-05-05 19:35 | Outpatient (CLI) | payer MEDICARE, OTHER ==
[~2022-05-05 19:35] MED LIST changes: +BISA5TAB20 PO; -BISA5TAB8 PO
== END 2022-05-06 06:39 | disposition home or self-care (01) ==
LOC: SLEEP 19:35
PROVIDERS: ATTEND Otolaryngology Otolaryngology/Facial Plastic Surgery
DX: G47.33 Obstructive sleep apnea (adult) (pediatric) (principal); J30.9 Allergic rhinitis, unspecified
CPT/HCPCS: 95811

== ENCOUNTER → 2022-08-14 | Outpatient (CLI) | payer MEDICARE, OTHER ==
--- NOTE | 2022-08-14 16:38 | Diagnostic Imaging Report ---
Indication: Routine screening. Comparison is made with prior mammograms from 04/01/2021 and 02/24/2020. 2-D and 3-D bilateral screening mammography was performed with CAD. Both breasts are heterogeneously dense, limiting the sensitivity of mammography. Since the prior study, the patient has undergone lumpectomy of the left breast. Previously noted spiculated mass has been removed. No new mass is identified. There are scattered benign calcifications. No malignant-appearing microcalcifications are seen. Axillae are unremarkable. IMPRESSION: BI-RADS Category 2 Postlumpectomy changes, left breast. No mammographic features suspicious for malignancy are identified. ACR BI-RADS Category 2: Benign findings. Result letter will be mailed to the patient. Note: At least 10% of breast cancer is not imaged by mammography. Dictated by: Dictated on workstation # [id number]
== END ==
LOC: RAD 14:28
PROVIDERS: ATTEND Internal Medicine Hematology & Oncology
DX: Z12.31 Encounter for screening mammogram for malignant neoplasm of breast (principal); Z98.82 Breast implant status
CPT/HCPCS: 77063; 77067

== ENCOUNTER 2022-08-20 09:50 | Outpatient (RCR) | payer MEDICARE, OTHER ==
[2022-08-20 10:02] LABS: BASOPHILS % (AUTO) 1 % (0-10); EOSINOPHILS # (AUTO) 0.2 10^3/uL (0.0-0.3); EOSINOPHILS % (AUTO) 6 % (0-10); HEMATOCRIT 40 % (35-52); LYMPHOCYTES # (AUTO) 0.9 10^3/uL (1.0-4.0); LYMPHOCYTES % (AUTO) 22 % (12-44); MEAN CORPUSCULAR HEMOGLOBIN 29 pg (25-34); MEAN CORPUSCULAR HGB CONC 32 g/dL (32-36); MEAN CORPUSCULAR VOLUME 90 fL (80-99); MEAN PLATELET VOLUME 10.1 fL (9.0-12.2); MONOCYTES # (AUTO) 0.4 10^3/uL (0.0-1.0); MONOCYTES % (AUTO) 9 % (0-12); NEUTROPHILS # (AUTO) 2.5 10^3/uL (1.8-7.8); NEUTROPHILS % (AUTO) 62 % (42-75); PLATELET COUNT 190 10^3/uL (130-400); WHITE BLOOD COUNT 4.1 10^3/uL (4.3-11.0)
[2022-08-20 10:25] LABS: ALBUMIN 4.4 GM/DL (3.2-4.5); BILIRUBIN,TOTAL 0.7 MG/DL (0.1-1.0); CALCIUM 9.8 MG/DL (8.5-10.1); CREATININE SERUM 0.79 MG/DL (0.60-1.30); POTASSIUM 3.9 MMOL/L (3.6-5.0)
== END 2022-09-12 | disposition home or self-care (01) ==
LOC: ONC 09:50
PROVIDERS: ATTEND Internal Medicine Hematology & Oncology
DX: C50.912 Malignant neoplasm of unspecified site of left female breast (principal); E78.2 Mixed hyperlipidemia; I25.10 Atherosclerotic heart disease of native coronary artery without angina pectoris; I10 Essential (primary) hypertension; E03.9 Hypothyroidism, unspecified; Z90.12 Acquired absence of left breast and nipple; Z90.711 Acquired absence of uterus with remaining cervical stump; Z96.653 Presence of artificial knee joint, bilateral; T81.41XA Infection following a procedure, superficial incisional surgical site, initial encounter
CPT/HCPCS: 36415; 80053; 85025

== ENCOUNTER 2023-02-11 10:08 | Outpatient (RCR) | payer MEDICARE, OTHER ==
[~2023-02-11 10:08] MED LIST changes: -LOSA100T57 PO; +LOSA100T58 PO
[2023-02-11 10:29] LABS: BASOPHILS # (AUTO) 0.1 10^3/uL (0.0-0.1); BASOPHILS % (AUTO) 1 % (0-10); EOSINOPHILS # (AUTO) 0.2 10^3/uL (0.0-0.3); EOSINOPHILS % (AUTO) 5 % (0-10); HEMATOCRIT 43 % (35-52); HEMOGLOBIN 12.7 g/dL (11.5-16.0); LYMPHOCYTES % (AUTO) 24 % (12-44); MEAN CORPUSCULAR HEMOGLOBIN 30 pg (25-34); MEAN CORPUSCULAR HGB CONC 30 g/dL (32-36); MEAN CORPUSCULAR VOLUME 102 fL (80-99); MEAN PLATELET VOLUME 10.7 fL (9.0-12.2); MONOCYTES # (AUTO) 0.4 10^3/uL (0.0-1.0); MONOCYTES % (AUTO) 9 % (0-12); NEUTROPHILS # (AUTO) 2.5 10^3/uL (1.8-7.8); NEUTROPHILS % (AUTO) 61 % (42-75); PLATELET COUNT 176 10^3/uL (130-400); WHITE BLOOD COUNT 4.1 10^3/uL (4.3-11.0)
[2023-02-11 10:51] LABS: ALBUMIN 4.4 GM/DL (3.2-4.5); BILIRUBIN,TOTAL 0.7 MG/DL (0.1-1.0); CALCIUM 9.2 MG/DL (8.5-10.1); CREATININE SERUM 0.75 MG/DL (0.60-1.30); POTASSIUM 3.8 MMOL/L (3.6-5.0); TOTAL PROTEIN 6.6 GM/DL (6.4-8.2)
== END 2023-02-12 | disposition home or self-care (01) ==
LOC: ONC 10:08
PROVIDERS: ATTEND Internal Medicine Hematology & Oncology
DX: C50.912 Malignant neoplasm of unspecified site of left female breast (principal); T81.41XA Infection following a procedure, superficial incisional surgical site, initial encounter; E78.2 Mixed hyperlipidemia; I25.10 Atherosclerotic heart disease of native coronary artery without angina pectoris; I10 Essential (primary) hypertension; E03.9 Hypothyroidism, unspecified; Z90.12 Acquired absence of left breast and nipple; Z90.711 Acquired absence of uterus with remaining cervical stump; Z96.653 Presence of artificial knee joint, bilateral
CPT/HCPCS: 80053; 85025; G0463; 36415; 99214